=== PATIENT | male | born 1975 | race Caucasian/White ===

== ENCOUNTER 2019-05-27 11:50 | Inpatient (IN) | payer SELFPAY | END 2019-06-01 12:39 | disposition home or self-care (01) | DRG 897 | PROVIDERS: Emergency Provider Family Medicine | DX: F10.229 Alcohol dependence with intoxication, unspecified (principal); R45.851 Suicidal ideations; F15.24 Other stimulant dependence with stimulant-induced mood disorder; F10.239 Alcohol dependence with withdrawal, unspecified; F17.210 Nicotine dependence, cigarettes, uncomplicated; Z28.21 Immunization not carried out because of patient refusal ==

== ENCOUNTER 2019-06-04 13:02 | Emergency (ER) | payer SELFPAY ==
[2019-06-04 12:19] VITALS: BP 122/85; PULSE 112; RESP 18; TEMP 36.6; O2SAT 95; BMI 23.1
[2019-06-04 12:25] VITALS: O2SAT 95
--- NOTE | 2019-06-04 12:27 | ED_ITS ---
Entered by Padmini Delarosa, acting as scribe for HPI - Allergic Reaction General: Chief complaint: Allergic Reaction Stated complaint: ALLERGIC REACTION Time Seen by Provider: 06/04/19 12:27 Source: patient History of Present Illness: HPI narrative: 43 yo Male presents to ED with complaint of allergic reaction. Pt states that his was researching his new medications, possible drug interactions and he got panicky. Pt states that he has been on these new medications since he [facility] to [facility] . Pt states that he has had some shaking and increased agitation. Pt states that he feels back to normal now. Pt states that he normally has some redness on his face. Pt states that he is feeling normal and he just had anxiety. MD complaint: other (Anxiety) Onset (ago): hour(s) Exposure: medication Associated symptoms: Reports no associated symptoms Severity: mild Review of Systems General: Reports: 10 or more systems reviewed and unremarkable except in HPI and below Psych: Reports: anxiety and panic attacks PFSH ED PFSH: Statuses (acute, chronic, etc) shown below reflect problem list status as previously entered and may not be historically accurate Social History Smoking and tobacco status: current every day smoker Physical Exam Const: COMMON NORMALS: no apparent distress, average body habitus, oriented x3, no limitations, healthy appearing, alert and well nourished HENMT: COMMON NORMALS: normocephalic HEAD & SCALP: normocephalic Eye: COMMON NORMALS: PERRL, EOMs intact bilaterally and conjunctivae normal CONJUNCTIVA: Yes conjunctivae normal PUPIL: Yes PERRL Neck/C-Spine: COMMON NORMALS: full ROM, no lymphadenopathy, supple, no meningeal signs and no JVD Chest: COMMONS NORMALS: inspection of chest normal, palpation of chest normal, inspection of breasts normal and palpation of breasts normal Resp: COMMON NORMALS: normal respiratory effort, no retractions, no use of accessory muscles and clear to auscultation bilaterally AUSCULTATION: clear to auscultation bilaterally Cardio: COMMON NORMALS: no JVD, regular rate and regular rhythm RATE: regular rate RHYTHM: regular rhythm GI: COMMON NORMALS: normal to inspection, nondistended, normoactive bowel sounds : COMMON NORMALS: Yes no CVA tenderness BLADDER/KIDNEY EXAM: Yes no CVA tenderness Back/Pelvis: COMMON NORMALS: no CVA tenderness Extremity: COMMON NORMALS: normal to inspection and full ROM Neuro: COMMON NORMALS: oriented x3 SENSORIUM/ORIENTATION: Yes alert MENINGEAL SIGNS: Yes no meningeal signs Psych: COMMON NORMALS: mental status grossly normal, thought process normal, cooperative, affect normal, speech normal and activity/motor behavior normal SPEECH: Yes normal speech THOUGHT PROCESS: normal thought process Course Vital Signs: Vital signs: Vital Signs Temperature 97.9 F 06/04/19 12:19 Pulse Rate 100 06/04/19 13:15 Respiratory Rate 15 06/04/19 13:15 Blood Pressure 126/79 06/04/19 13:15 Pulse Oximetry 93 06/04/19 13:15 MDM - Allergic Reaction MDM Narrative: Medical decision making narrative: I discussed the differential diagnosis with the patient. The patient reports he feels back to normal now. Patient and appears very comfortable of reviewed his vital signs he is a little tachycardic but he reportedly not uncommonly is. The patient and I discussed continued monitoring and labs and other work-up versus just home treatment I think he probably had an anxiety attack. Patient began to worry about certain side effects of his medications but he has been on the medications now going into the second week without any problems prior to today. He does report feeling significantly better since he started the medications. I have given him reassurance but we also discussed return precautions. Follow-up with behavioral health and primary care is emphasized. Discharge Plan Discharge Patient Disposition: Home, Self-Care Clinical Impression: Anxiety attack Condition: Stable Discharge Diet: Usual diet Discharge Activity: Resume usual activity Activity Restrictions/Additional Instructions: 1. Follow-up with primary care and behavioral health. Return if symptoms worsen or new or different worrisome symptoms develop. Coding Level of Care Code ED Director Of Purchasing for Chg Fwd Exam Problem Focused The documentation recorded by the [place] frankel Carmen, accurately reflects the service I personally performed and the decisions made by me, Lewis Garrett DO
[2019-06-04 12:48] VITALS: BP 126/79; PULSE 104; RESP 15; O2SAT 94
[2019-06-04 13:15] VITALS: BP 126/79; PULSE 100; RESP 15; O2SAT 93
[2019-06-04 13:30] VITALS: BP 121/71; PULSE 98; RESP 14; O2SAT 94
--- NOTE | 2019-06-05 10:38 | DCPLANNER ---
security and compliance project manager had message that patient is to follow up with [facility]. security and compliance project manager called [facility], spoke with Luci, was told that patient has not been seen at the clinic. security and compliance project manager called patient to inform patient that he would need to complete the walk in assessment for services at [facility]. security and compliance project manager unable to speak with patient at this time, a voicemail was left for patient to return director case phone call.
== END 2019-06-04 13:34 | disposition home or self-care (01) ==
LOC: ER 13:37
PROVIDERS: Emergency Provider Family Medicine
DX: F41.9 Anxiety disorder, unspecified (principal); F17.210 Nicotine dependence, cigarettes, uncomplicated
CPT/HCPCS: 99282

== ENCOUNTER 2019-06-17 03:20 | Inpatient (IN) | payer SELFPAY ==
--- NOTE | 2019-06-17 03:22 | ED_ITS ---
Entered by Pratibha Mcgowan, acting as scribe for Fransisco Berry MD HPI - Alcohol General: Chief Complaint: Psychiatric Symptoms Stated Complaint: ETOH Time Seen by Provider: 06/17/19 03:24 Source: patient and EMS Mode of arrival: EMS Limitations: no limitations History of Present Illness: HPI narrative: 43 y/o male presents to the ED for intoxication. Pt became aggressive and combative with [place] [employer]. Pt is upset because his left him several days ago and he does not know where she is. Pt states he does not know what to do without her . Pt made SI/HI comments to police. Pt denied SI/HI upon exam. 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 Chronic alcohol use: Yes Previous visits for alcohol intoxication: Yes Associated symptoms: Deny abdominal pain, nausea or vomiting Treatments prior to arrival: none Review of Systems Const: Denies: fever or chills Eyes: Denies: change in vision ENMT: Denies: throat pain or mouth pain Card: Denies: chest pain Resp: Denies: shortness of breath GI: Denies: abdominal pain, nausea, vomiting or diarrhea Musc: Denies: back pain or joint pain Skin/Breast: Denies: rash Neuro: Denies: headache or behavioral changes Endo: Denies: excessive urination Byron/Lymph: Denies: easy bruising All/Imm: Denies: hives PFSH ED PFSH: Statuses (acute, chronic, etc) shown below reflect problem list status as previously entered and may not be historically accurate Social History Smoking and tobacco status: unknown if ever smoked Physical Exam Const: COMMON NORMALS: no apparent distress, oriented x3 and healthy appearing GENERAL APPEARANCE: combative and disheveled HENMT: COMMON NORMALS: normocephalic and external nose normal HEAD & SCALP: normocephalic NOSE: external nose normal Eye: COMMON NORMALS: PERRL PUPIL: Yes PERRL Neck/C-Spine: COMMON NORMALS: full ROM and no lymphadenopathy Chest: COMMONS NORMALS: inspection of chest normal Resp: COMMON NORMALS: normal respiratory effort, no use of accessory muscles and clear to auscultation bilaterally AUSCULTATION: clear to auscultation bilaterally Cardio: COMMON NORMALS: regular rate and regular rhythm RATE: regular rate RHYTHM: regular rhythm GI: COMMON NORMALS: normal to inspection, nondistended, normoactive bowel sounds, soft to palpation, non-tender and no masses PALPATION: Yes soft Back/Pelvis: THORACIC SPINE/UPPER BACK: Yes normal to inspection Extremity: COMMON NORMALS: normal to inspection, full ROM and normal capillary refill Neuro: COMMON NORMALS: oriented x3 Psych: APPEARANCE: Yes unkempt and Yes disheveled ATTITUDE: Yes agitated and Yes aggressive MOOD & AFFECT: Yes irritable Skin: COMMON NORMALS: no rashes or lesions noted GENERAL SKIN EXAM: no rashes or lesions noted Course Vital Signs: Vital signs: Vital Signs Temperature 98.4 F 06/17/19 03:26 Pulse Rate 94 06/17/19 03:26 Respiratory Rate 18 06/17/19 03:26 Blood Pressure 155/101 06/17/19 03:26 Pulse Oximetry 95 06/17/19 03:26 MDM - Alcohol MDM Narrative: Medical decision making narrative: Patient presents here with depression along with alcohol intoxication. Patient states that he feels like he needs help for his depression. He is not homicidal or suicidal but voluntarily wants to be placed in the psych unit. I spoke to Dr. Em and will admit patient to the psychiatric unit. Lab Data: Labs: Lab Results 06/17/19 06/17/19 Range/Units 03:53 03:53 WBC 9.2 (4.0-10.0) 10^3/ uL RBC 4.59 (4.1-5.3) 10^6/u L Hgb 17.1 H (11.7-16.6) g/dL Hct 49.5 (42.0-52.0) % MCV 107.8 H (80-94) fL MCH 37.3 H (28.0-34.0) pg MCHC 34.5 (30.0-36.0) g/dL RDW 12.0 L (12.1-15.1) % Plt Count 349 (130-400) 10^3/c mm MPV 8.9 (7.4-10.4) fL Neut % (Auto) 63.7 % Lymph % (Auto) 28.2 % Newton % (Auto) 6.9 % Eos % (Auto) 0.7 % Baso % (Auto) 0.4 % Neut # (Auto) 5.8 (1.8-7.7) 10^3/u L Lymph # (Auto) 2.6 (0.8-4.8) 10^3/u L Newton # (Auto) 0.6 (0.2-0.9) 10^3/u L Eos # (Auto) 0.1 (0.0-0.8) 10^3/u L Baso # (Auto) 0.0 (0.0-0.1) 10^3/u L Nucleated RBC % (a uto) 0 % Nucleated RBCs # 0.0 /100WBC Sodium 140 (136-145) mmol/L Potassium 4.1 (3.5-5.1) mmol/L Chloride 104 (98-107) mmol/L Carbon Dioxide 20 L (22-29) mmol/L Anion Gap 20.1 H (5-19) BUN 14 (6-20) mg/dL Creatinine 1.0 (0.7-1.2) mg/dL GFR Calculation 81.9 L (90-130) mL/min Glucose 98 (74-109) mg/dL Calcium 9.0 (8.6-10.0) mg/Dl Total Bilirubin 0.2 (0.15-1.2) mg/dL AST 35 (0-40) U/L ALT 41 (0-41) U/L Alkaline Phosphata se 122 (40-130) IU/L Total Protein 8.0 (6.6-8.7) g/dL Albumin 4.8 (3.5-5.2) g/dL Globulin 3.2 (1.3-4.6) g/dL Salicylates < 0.3 L (3-10) mg/dL Acetaminophen < 5.0 L (10-30) ug/mL Ethyl Alcohol 205 H (0-10) mg/dL Discharge Plan Discharge Admit Provider: Shola Em Coding Level of Care Code ED Retail Salesman for Chg Fwd Exam Problem Focused The documentation recorded by the Juan M frankel Ashley, accurately reflects the service I personally performed and the decisions made by , Fransisco Berry MD Jun 17, 2019 03:20
[2019-06-17 03:26] VITALS: BP 155/101; PULSE 94; RESP 18; TEMP 36.9; O2SAT 95; BMI 26.4
[2019-06-17] MEDS: LORazepam 1 mg Tablet PO (03:55)
[2019-06-17 04:19] LABS: Basophils % 0.4 %; Eosinophils # 0.1 10^3/uL (0.0-0.8); Eosinophils % 0.7 %; Hematocrit 49.5 % (42.0-52.0); Hemoglobin 17.1 g/dL (11.7-16.6); Lymphocytes # 2.6 10^3/uL (0.8-4.8); Lymphocytes % 28.2 %; Mean Corpuscular HGB Conc 34.5 g/dL (30.0-36.0); Mean Corpuscular Hemoglobin 37.3 pg (28.0-34.0); Mean Corpuscular Volume 107.8 fL (80-94); Mean Platelet Volume 8.9 fL (7.4-10.4); Monocytes # 0.6 10^3/uL (0.2-0.9); Monocytes % 6.9 %; Neutrophils # 5.8 10^3/uL (1.8-7.7); Neutrophils % 63.7 %; Nucleated Red Blood Cells % 0 %; Platelet Count 349 10^3/cmm (130-400); Red Blood Count 4.59 10^6/uL (4.1-5.3); White Blood Count 9.2 10^3/uL (4.0-10.0)
[2019-06-17 04:28] LABS: Alanine Aminotransferase 41 U/L (0-41); Albumin Level 4.8 g/dL (3.5-5.2); Alcohol Level 205 mg/dL (0-10); Alkaline Phosphatase 122 IU/L (40-130); Anion Gap 20.1 (5-19); Aspartate Amino Transferase 35 U/L (0-40); Blood Urea Nitrogen 14 mg/dL (6-20); Carbon Dioxide 20 mmol/L (22-29); Chloride 104 mmol/L (98-107); Globulin 3.2 g/dL (1.3-4.6); Glomerular Filtration Rate 81.9 mL/min (90-130); Glucose 98 mg/dL (74-109); Potassium 4.1 mmol/L (3.5-5.1); Sodium 140 mmol/L (136-145); Total Bilirubin 0.2 mg/dL (0.15-1.2)
[2019-06-17 04:29] LABS: Acetaminophen < 5.0 ug/mL (10-30); Salicylate < 0.3 mg/dL (3-10)
[2019-06-17] MEDS: LORazepam 1 mg Tablet 2 MG PO (05:21)
[2019-06-17 05:25] VITALS: BP 131/75; PULSE 89; RESP 17; O2SAT 95
[2019-06-17 06:00] VITALS: BP 125/79; PULSE 93; RESP 22; TEMP 37; O2SAT 96
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
[2019-06-17 14:00] VITALS: BP 132/83; PULSE 87; RESP 18; TEMP 36.8; O2SAT 98
[2019-06-17] MEDS: hyDROXYzine 25 mg Capsule 50 MG PO (17:43)
--- NOTE | 2019-06-17 17:44 | PC.NURSE ---
Addendum entered by Lizz Mancini LPN 06/17/19 19:03: prn med effective no further c/o anxiety Original Note: PRN VISTARIL 50 MG GIVEN PO PER PT C/O GENERALIZED ANXIETY. WILL CONT TO MONITOR. PT SPECIFICALLY ASKING FOR ATIVAN
[2019-06-17 19:58] VITALS: BP 135/89; PULSE 89; RESP 20; TEMP 36.8; O2SAT 97
[2019-06-17] MEDS: trazodone 50 mg Tablet PO (20:58)
[2019-06-18] MEDS: hyDROXYzine 25 mg Capsule 50 MG PO (02:56)
[2019-06-18 06:00] VITALS: BP 132/91; PULSE 79; RESP 18; TEMP 36.6; O2SAT 97
[2019-06-18 07:54] LABS: Amphetamines Screen Urine Negative (Negative); Barbiturates Screen Urine Negative (Negative); Benzodiazepines Screen Urine Negative (Negative); Cocaine Screen Urine Negative (Negative); Opiate Screen Urine Negative (Negative); PCP Screen Urine Negative (Negative); THC Screen Urine Negative (Negative)
[2019-06-18] MEDS: multivitamin therapeutic Tablet 1 TAB PO (09:56)
[2019-06-18] MEDS: folic acid 1 mg Tablet PO (09:56)
[2019-06-18] MEDS: thiamine 100 mg Tablet PO (09:56)
[2019-06-18 12:48] VITALS: BP 118/83; PULSE 92; RESP 20; TEMP 36.6; O2SAT 98
[2019-06-18 12:50] VITALS: BP 118/83; PULSE 92; RESP 20; TEMP 36.6; O2SAT 98
[2019-06-18 14:00] VITALS: BP 118/83; PULSE 82; RESP 20; TEMP 36.6; O2SAT 98
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
[2019-06-18] MEDS: citalopram 20 mg Tablet PO (17:48)
[2019-06-18] MEDS: nicotine 21 mg Patch 1 PATCH TRANSDERMA (18:30)
[2019-06-18] MEDS: LORazepam 2 mg Tablet PO (18:40)
--- NOTE | 2019-06-18 18:41 | PC.NURSE ---
PT NOTE: PRN ATIVAN 2 MG GIVEN PER CIWA PROTOCOL
[2019-06-18 20:04] VITALS: BP 138/94; PULSE 83; RESP 18; TEMP 36.6; O2SAT 99
[2019-06-18] MEDS: trazodone 50 mg Tablet PO (21:18)
[2019-06-19 06:00] VITALS: BP 139/88; PULSE 98; RESP 20; TEMP 36.7; O2SAT 98
[2019-06-19] MEDS: thiamine 100 mg Tablet PO (09:14)
[2019-06-19] MEDS: folic acid 1 mg Tablet PO (09:14)
[2019-06-19] MEDS: multivitamin therapeutic Tablet 1 TAB PO (09:14)
[2019-06-19] MEDS: citalopram 20 mg Tablet PO (09:14)
[2019-06-19 13:40] VITALS: BP 119/73; PULSE 89; RESP 16; TEMP 36.9; O2SAT 91
--- NOTE | 2019-06-19 14:31 | PM.NPN ---
Subjective NPU Subjective: Interval history: Patient complains that he usually takes his Celexa at bedtime because it zombies me out during the day. He also reports that he usually takes trazodone 100 mg 4 times a day. He then goes on to complain that he has the shakes and anxiety and wants something during the day for the shakes and anxiety. When he is told that part of the alcohol withdrawal is on a protocol for that. He nods his head and asked me if he can have something for his anxiety. We discussed his history of being sober at the same time as his . That occurred a year ago when she went to rehabilitation at [place] while he was incarcerated for a month. He says that he has been sober for several years and does not doubt his willpower to become sober and remain sober. However he says the barrier to such is the fact that he has not been able to get disability and has not been able to retain employment. Mental Status Exam MSE Comments: This is a well-nourished, well-developed white male Who is still disheveled and malodorous. No abnormal movements except for psychomotor retardation. Cooperative with exam . Speech was Normal rate and volume. Mood described as depressed, affect congruent But with improved affective range. Thought process organized. Thought content: Patient Deniedsuicidal ideation denied homicidal ideation, there were no delusions reported or noted, he denied any auditory or visual hallucinations. Attention and concentration appear intact and memory was mostly reliable but none were formally tested. He is alert and oriented x3. Insight and judgment are limited/impaired. Cognition: Level of Consciousness: Awake, Alert, Appropriate and Follows Commands Patient Cognition Impaired: No Ability to Follow Directions: Excellent Patient Orientation (long list): Person, Place, Time, Name, Age and Birthday Comprehension Ability: No Impairment Hallucination Type: Auditory Delusion Description: Not Present Thought Process: Appropriate Affect: Affect Description: Calm Depressive Symptoms: Difficulty Sleeping, Increased Anxiety and Unhappiness Behavior: Patient Behavior: Cooperative Speech Pattern: Clear Vitals/I&O/Wt Last Vital Signs Temp 98.5 F 06/19/19 13:40 Pulse 89 06/19/19 13:40 Resp 16 06/19/19 13:40 BP 119/73 06/19/19 13:40 Pulse Ox 91 06/19/19 13:40 Data NPU : 06/17/19 03:53 06/17/19 03:53 A&P Assessment and plan (1) Alcohol use disorder: Status: Acute (2) Adjustment disorder with mixed disturbance of emotions and conduct: This is a 43-year-old white male with a few recent hospitalizations with significant psychosocial challenges including the likely divorce from his who presents with recent intoxication and endorsing lethality. 1. Continue current medication. 2. Continue on the [facility] protocol for safe withdrawal. Hospital day #3: Celexa was increased to 40 mg and moved to a bedtime dose. Imipramine was replaced with trazodone 200 mg at bedtime. No daytime dosing was provided. Patient was strongly advised to notify staff if he thought he was in alcohol withdrawal and needed medication therapy.He continues to refuse referral for rehabilitation. 3. Encourage individual group and milieu therapy. 4. Continue to 15-minute checks for safety. 5. Encourage discharged to a sober living facility at the highest level of care to which he is willing to commit. Status: Acute Code(s): F43.25 - Adjustment disorder with mixed disturbance of emotions and conduct (3) Depressive disorder, not elsewhere classified: Status: Acute Code(s): F32.9 - Major depressive disorder, single episode, unspecified Involuntary Hold Information 96 Hour Hold: 96 Hour Involuntary Admission: No Attestations NPU Medical Necessity Statement*: Patient will remain in the hospital another 3 nights for treatment of alcohol withdrawal. Coding Level of Care Code Acute Product Manager Financial Services for Camila Alvares Diagnoses Alcohol use disorder Adjustment disorder with mixed disturbance of emotions and conduct F43.25 Depressive disorder, not elsewhere classified F32.9
[2019-06-19 20:08] VITALS: BP 128/73; PULSE 91; RESP 21; TEMP 36.7; O2SAT 97
[2019-06-19] MEDS: trazodone 100 mg Tablet PO (20:31)
[2019-06-19] MEDS: citalopram 20 mg Tablet 40 MG PO (20:31)
[2019-06-19 22:00] VITALS: BP 128/73; PULSE 91; RESP 21; TEMP 36.7; O2SAT 97
[2019-06-20 06:00] VITALS: BP 121/80; PULSE 77; RESP 16; TEMP 36.6; O2SAT 97
[2019-06-20] MEDS: multivitamin therapeutic Tablet 1 TAB PO (08:24)
[2019-06-20] MEDS: folic acid 1 mg Tablet PO (08:24)
[2019-06-20] MEDS: thiamine 100 mg Tablet PO (08:24)
--- NOTE | 2019-06-20 11:28 | P.PN_ITS ---
Subjective NPU Subjective: Interval history: Patient is in bed asleep. He has made no complaints. Unable to interview. Mental Status Exam MSE Comments: MSE from yesterday: This is a well-nourished, well-developed white male Who is still disheveled and malodorous. No abnormal movements except for psychomotor retardation. Cooperative with exam . Speech was Normal rate and volume. Mood described as depressed, affect congruent But with improved affective range. Thought process organized. Thought content: Patient Deniedsuicidal ideation denied homicidal ideation, there were no delusions rep orted or noted, he denied any auditory or visual hallucinations. Attention and concentration appear intact and memory was mostly reliable but none were formally tested. He is alert and oriented x3. Insight and judgment are limited/impaired. Today he is in bed asleep. His breathing is unlabored and he appears to be in no apparent distress. Cognition: Level of Consciousness: Awake, Alert, Appropriate and Follows Commands Patient Cognition Impaired: No Ability to Follow Directions: Excellent Patient Orientation (long list): Person, Place, Time, Name, Age and Birthday Comprehension Ability: No Impairment Hallucination Type: None Delusion Description: Not Present Thought Process: Appropriate Affect: Affect Description: [place] Depressive Symptoms: Difficulty Sleeping, Increased Anxiety and Unhappiness Behavior: Patient Behavior: Appropriate Speech Pattern: Clear Vitals/I&O/Wt Last Vital Signs Temp 98 F 06/20/19 06:00 Pulse 77 06/20/19 06:00 Resp 16 06/20/19 06:00 BP 121/80 06/20/19 06:00 Pulse Ox 97 06/20/19 06:00 Data NPU : 06/17/19 03:53 06/17/19 03:53 A&P Assessment and plan (1) Alcohol use disorder: Status: Acute (2) Adjustment disorder with mixed disturbance of emotions and conduct: This is a 43-year-old white male with a few recent hospitalizations with significant psychosocial challenges including the likely divorce from his who presents with recent intoxication and endorsing lethality. 1. Continue current medication. 2. Continue on the [facility] protocol for safe withdrawal. Hospital day #3: Celexa was increased to 40 mg and moved to a bedtime dose. Imipramine was replaced with trazodone 200 mg at bedtime. No daytime dosing was provided. Patient was strongly advised to notify staff if he thought he was in alcohol withdrawal and needed medication therapy.He continues to refuse referral for rehabilitation. HD#4: no changes at this time. Will defer outpatient referrals until saturday when rehabnilitation offices are open 3. Encourage individual group and milieu therapy. 4. Continue to 15-minute checks for safety. 5. Encourage discharged to a sober living facility at the highest level of care to which he is willing to commit. Status: Acute Code(s): F43.25 - Adjustment disorder with mixed disturbance of emotions and conduct (3) Depressive disorder, not elsewhere classified: Status: Acute Code(s): F32.9 - Major depressive disorder, single episode, unspecified Involuntary Hold Information 2 96 Hour Hold: 96 Hour Involuntary Admission: No Attestations NPU Medical Necessity Statement*: Pt will remain inhospital 2 more nights to copmplete alcohol detox and allow for rehab referral Coding Level of Care Code Acute Solar Energy Installation Manager for Camila Alvares Diagnoses Alcohol use disorder Adjustment disorder with mixed disturbance of emotions and conduct F43.25 Depressive disorder, not elsewhere classified F32.9
[2019-06-20] MEDS: nicotine 2 mg Gum BUCCAL (13:40)
[2019-06-20 13:59] VITALS: BP 121/80; PULSE 77; RESP 16; TEMP 36.6; O2SAT 97
[2019-06-20 14:39] VITALS: BP 125/83; PULSE 107; RESP 19; TEMP 36.8; O2SAT 95
[2019-06-20] MEDS: nicotine 21 mg Patch 1 PATCH TRANSDERMA (16:18)
[2019-06-20 20:39] VITALS: BP 147/88; PULSE 87; RESP 20; TEMP 36.6; O2SAT 97
[2019-06-20] MEDS: trazodone 100 mg Tablet PO (21:39)
[2019-06-20] MEDS: citalopram 20 mg Tablet 40 MG PO (21:39)
[2019-06-21 06:00] VITALS: BP 128/85; PULSE 78; RESP 20; TEMP 36.4; O2SAT 99
[2019-06-21] MEDS: multivitamin therapeutic Tablet 1 TAB PO (08:38)
[2019-06-21] MEDS: folic acid 1 mg Tablet PO (08:38)
[2019-06-21] MEDS: thiamine 100 mg Tablet PO (08:38)
[2019-06-21] MEDS: trazodone 50 mg Tablet PO ×3 (09:46→20:34)
--- NOTE | 2019-06-21 11:38 | P.PN_ITS ---
Subjective NPU Subjective: Interval history: Patient Encountered spontaneously alert and interpersonally engaged with peers and staff for the first time. He reports that he is having some daytime anxiety and would benefit from when necessary trazodone during the day. Otherwise he is doing much better and feeling better. He is preparing his plan for discharge. Mental Status Exam MSE Comments: MSE from yesterday: This is a well-nourished, well-developed white male Who is still disheveled and malodorous. No abnormal movements except for psychomotor retardation. Cooperative with exam . Speech was Normal rate and volume. Mood described as euthymic, affect congruent with good affective range. Thought process organized. Thought content: Patient Deniedsuicidal ideation denied homicidal ideation, there were no delusions reported or noted, he denied any auditory or visual hallucinations. Attention and concentration appear intact and memory was mostly reliable but none were formally tested. He is alert and oriented x3. Insight and judgment are limited/impaired. Today he is in bed asleep. His breathing is unlabored and he appears to be in no apparent distress. Cognition: Level of Consciousness: Awake, Alert, Appropriate and Follows Commands Patient Cognition Impaired: No Ability to Follow Directions: Excellent Patient Orientation (long list): Person, Place, Time, Name, Age and Birthday Comprehension Ability: No Impairment Hallucination Type: None Delusion Description: Not Present Thought Process: Appropriate Affect: Affect Description: Appropriate and Calm Depressive Symptoms: Difficulty Sleeping, Increased Anxiety and Unhappiness Behavior: Patient Behavior: Appropriate Speech Pattern: Clear Vitals/I&O/Wt Last Vital Signs Temp 97.6 F 06/21/19 06:00 Pulse 78 06/21/19 06:00 Resp 20 H 06/21/19 06:00 BP 128/85 06/21/19 06:00 Pulse Ox 99 06/21/19 06:00 Weight last 48 hrs Weight 74.752 kg Data NPU : 06/17/19 03:53 06/17/19 03:53 A&P Assessment and plan (1) Alcohol use disorder: Status: Acute (2) Adjustment disorder with mixed disturbance of emotions and conduct: This is a 43-year-old white male with a few recent hospitalizations with significant psychosocial challenges including the likely divorce from his who presents with recent intoxication and endorsing lethality. 1. Continue current medication. 2. Continue on the [facility] protocol for safe withdrawal. Hospital day #3: Celexa was increased to 40 mg and moved to a bedtime dose. Imipramine was replaced with trazodone 200 mg at bedtime. No daytime dosing was provided. Patient was strongly advised to notify staff if he thought he was in alcohol withdrawal and needed medication therapy.He continues to refuse referral for rehabilitation. HD#4: no changes at this time. Will defer outpatient referrals until saturday when rehabilitation offices are open HD#5: Will initiate 3 times a day trazodone during the day. Strongly re commended his participation in groups. 3. Encourage individual group and milieu therapy. 4. Continue to 15-minute checks for safety. 5. Encourage discharged to a sober living facility at the highest level of care to which he is willing to commit. Status: Acute Code(s): F43.25 - Adjustment disorder with mixed disturbance of emotions and conduct (3) Depressive disorder, not elsewhere classified: Status: Acute Code(s): F32.9 - Major depressive disorder, single episode, unspecified Involuntary Hold Information 96 Hour Hold: 96 Hour Involuntary Admission: No Attestations NPU Medical Necessity Statement*: Patient to remain another 1-2 nights while his placement is established. Coding Level of Care Code Acute Automotive Professional for Camila Alvares Diagnoses Alcohol use disorder Adjustment disorder with mixed disturbance of emotions and conduct F43.25 Depressive disorder, not elsewhere classified F32.9
[2019-06-21] MEDS: nicotine 2 mg Gum BUCCAL ×2 (13:25→17:27)
[2019-06-21 14:00] VITALS: BP 136/81; PULSE 98; RESP 18; TEMP 36.8; O2SAT 97
[2019-06-21 20:00] VITALS: BP 142/95; PULSE 104; RESP 21; TEMP 36.5; O2SAT 96
[2019-06-21] MEDS: trazodone 100 mg Tablet PO (20:34)
[2019-06-21] MEDS: citalopram 20 mg Tablet 40 MG PO (20:34)
[2019-06-21 22:00] VITALS: BP 142/95; PULSE 104; RESP 21; TEMP 36.5; O2SAT 96
[2019-06-22 06:00] VITALS: BP 111/74; PULSE 87; RESP 20; TEMP 36.8; O2SAT 97
[2019-06-22] MEDS: trazodone 50 mg Tablet PO ×3 (09:32→21:06)
[2019-06-22] MEDS: thiamine 100 mg Tablet PO (09:32)
[2019-06-22] MEDS: multivitamin therapeutic Tablet 1 TAB PO (09:32)
[2019-06-22] MEDS: folic acid 1 mg Tablet PO (09:32)
[2019-06-22 14:00] VITALS: BP 108/71; PULSE 83; RESP 18; TEMP 36.6; O2SAT 95
--- NOTE | 2019-06-22 16:27 | P.PN_ITS ---
Subjective NPU Subjective: Interval history: Patient Encountered spontaneously alert and interpersonally engaged with peers and staff . He is preparing his plan for discharge. Mental Status Exam MSE Comments: MSE from yesterday: This is a well-nourished, well-developed white male Who is still disheveled and malodorous. No abnormal movements except for psychomotor retardation. Cooperative with exam . Speech was Normal rate and volume. Mood described as euthymic, affect congruent with good affective range. Thought process organized. Thought content: Patient Deniedsuicidal ideation denied homicidal ideation, there were no delusions reported or noted, he denied any auditory or visual hallucinations. Attention and concentration appear intact and memory was mostly reliable but none were formally tested. He is alert and oriented x3. Insight and judgment are limited/impaired. Today he is in bed asleep. His breathing is unlabored and he appears to be in no apparent distress. Cognition: Patient Appearance: Appropriate Level of Consciousness: Awake, Alert, Appropriate and Follows Commands Patient Cognition Impaired: No Ability to Follow Directions: Excellent Patient Orientation (long list): Person and Place Comprehension Ability: No Impairment Hallucination Type: None Delusion Description: Not Present Thought Process: Appropriate Affect: Affect Description: Calm Depressive Symptoms: Difficulty Sleeping, Increased Anxiety and Unhappiness Behavior: Patient Behavior: Cooperative Speech Pattern: Clear Vitals/I&O/Wt Last Vital Signs Temp 97.9 F 06/22/19 14:00 Pulse 83 06/22/19 14:00 Resp 18 06/22/19 14:00 BP 108/71 06/22/19 14:00 Pulse Ox 95 06/22/19 14:00 Weight last 48 hrs Weight 74.752 kg Data NPU : 06/17/19 03:53 06/17/19 03:53 A&P Assessment and plan (1) Alcohol use disorder: Status: Acute (2) Adjustment disorder with mixed disturbance of emotions and conduct: This is a 43-year-old white male with a few recent hospitalizations with significant psychosocial challenges including the likely divorce from his who presents with recent intoxication and endorsing lethality. 1. Continue current medication. 2. Continue on the [facility] protocol for safe withdrawal. Hospital day #3: Celexa was increased to 40 mg and moved to a bedtime dose. Imipramine was replaced with trazodone 200 mg at bedtime. No daytime dosing was provided. Patient was strongly advised to notify staff if he thought he was in alcohol withdrawal and needed medication therapy.He continues to refuse referral for rehabilitation. HD#4: no changes at this time. Will defer outpatient referrals until saturday when rehabilitation offices are open HD#5: Will initiate 3 times a day trazodone during the day. Strongly recommended his participation in groups. HD#6: discharge destination is uncertain and the fridge and cold temperature, will allow him to remain one more night and discharge in the morning. 3. Encourage individual group and milieu therapy. 4. Continue to 15-minute checks for safety. 5. Encourage discharged to a sober living facility at the highest level of care to which he is willing to commit. Status: Acute Code(s): F43.25 - Adjustment disorder with mixed disturbance of emotions and conduct (3) Depressive disorder, not elsewhere classified: Status: Acute Code(s): F32.9 - Major depressive disorder, single episode, unspecified Involuntary Hold Information 96 Hour Hold: 96 Hour Involuntary Admission: No Attestations NPU Medical Necessity Statement*: patient to remain in the hospital 1 more night to establish destination upon discharge and coordinate outpatient substance abuse treatment with his . Coding Level of Care Code Acute Clerical Aide Teacher for Camila Alvares Diagnoses Alcohol use disorder Adjustment disorder with mixed disturbance of emotions and conduct F43.25 Depressive disorder, not elsewhere classified F32.9
--- NOTE | 2019-06-22 16:29 | P.PN_ITS ---
Subjective NPU Subjective: Interval history: Patient Encountered spontaneously alert and interpersonally engaged with peers and staff . He is preparing his plan for discharge. Mental Status Exam MSE Comments: MSE from yesterday: This is a well-nourished, well-developed white male Who is still disheveled and malodorous. No abnormal movements except for psychomotor retardation. Cooperative with exam . Speech was Normal rate and volume. Mood described as euthymic, affect congruent with good affective range. Thought process organized. Thought content: Patient Deniedsuicidal ideation denied homicidal ideation, there were no delusions reported or noted, he denied any auditory or visual hallucinations. Attention and concentration appear intact and memory was mostly reliable but none were formally tested. He is alert and oriented x3. Insight and judgment are limited/impaired. Today he is in bed asleep. His breathing is unlabored and he appears to be in no apparent distress. Cognition: Patient Appearance: Appropriate Level of Consciousness: Awake, Alert, Appropriate and Follows Commands Patient Cognition Impaired: No Ability to Follow Directions: Excellent Patient Orientation (long list): Person and Place Comprehension Ability: No Impairment Hallucination Type: None Delusion Description: Not Present Thought Process: Appropriate Affect: Affect Description: Calm Depressive Symptoms: Difficulty Sleeping, Increased Anxiety and Unhappiness Behavior: Patient Behavior: Cooperative Speech Pattern: Clear Vitals/I&O/Wt Last Vital Signs Temp 97.9 F 06/22/19 14:00 Pulse 83 06/22/19 14:00 Resp 18 06/22/19 14:00 BP 108/71 06/22/19 14:00 Pulse Ox 95 06/22/19 14:00 Weight last 48 hrs Weight 74.752 kg Data NPU : 06/17/19 03:53 06/17/19 03:53 A&P Assessment and plan (1) Alcohol use disorder: Status: Acute (2) Adjustment disorder with mixed disturbance of emotions and conduct: This is a 43-year-old white male with a few recent hospitalizations with significant psychosocial challenges including the likely divorce from his who presents with recent intoxication and endorsing lethality. 1. Continue current medication. 2. Continue on the [facility] protocol for safe withdrawal. Hospital day #3: Celexa was increased to 40 mg and moved to a bedtime dose. Imipramine was replaced with trazodone 200 mg at bedtime. No daytime dosing was provided. Patient was strongly advised to notify staff if he thought he was in alcohol withdrawal and needed medication therapy.He continues to refuse referral for rehabilitation. HD#4: no changes at this time. Will defer outpatient referrals until saturday when rehabilitation offices are open HD#5: Will initiate 3 times a day trazodone during the day. Strongly recommended his participation in groups. HD#6: discharge destination is uncertain and the fridge and cold temperature, will allow him to remain one more night and discharge in the morning. 3. Encourage individual group and milieu therapy. 4. Continue to 15-minute checks for safety. 5. Encourage discharged to a sober living facility at the highest level of care to which he is willing to commit. Status: Acute Code(s): F43.25 - Adjustment disorder with mixed disturbance of emotions and conduct (3) Depressive disorder, not elsewhere classified: Status: Acute Code(s): F32.9 - Major depressive disorder, single episode, unspecified Involuntary Hold Information 96 Hour Hold: 96 Hour Involuntary Admission: No Attestations NPU Medical Necessity Statement*: patient will remain in the hospital 1 more night and coordinate outpatient treatment with his tomorrow. Coding Level of Care Code Acute Arch Cushion Press Operator for Camila Alvares Diagnoses Alcohol use disorder Adjustment disorder with mixed disturbance of emotions and conduct F43.25 Depressive disorder, not elsewhere classified F32.9
[2019-06-22 20:40] VITALS: BP 121/77; PULSE 78; RESP 15; TEMP 36.6; O2SAT 97
[2019-06-22] MEDS: citalopram 20 mg Tablet 40 MG PO (21:06)
[2019-06-22] MEDS: trazodone 100 mg Tablet PO (21:07)
[2019-06-22] MEDS: nicotine 2 mg Gum BUCCAL (22:11)
[2019-06-23 06:00] VITALS: BP 111/73; PULSE 68; RESP 17; TEMP 36.6; O2SAT 97
[2019-06-23] MEDS: nicotine 2 mg Gum BUCCAL ×3 (06:36→12:15)
--- NOTE | 2019-06-23 08:18 | PM.NDC ---
Diagnoses at Discharge Discharge Diagnosis (1) Alcohol use disorder: Status: Acute (2) Adjustment disorder with mixed disturbance of emotions and conduct: Status: Acute (3) Depressive disorder, not elsewhere classified: Status: Acute Reason for Visit Reason for Visit: Reason For Visit: ETOH Hospital Course Discharge Summary Chief complaint: I just started binge drinking again. History of present illness: Israel Gordon Is a 43-year-old alcoholic well known to this physician and this program. He states that he once again began binge drinking on whiskey. Following the holidays, he drank hard for a few days and then was able to quit. Then again approximately June 11 started drinking again and has been drinking since. His Admission blood alcohol level was 205. 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 His interview is difficult as he has been through this process some times that he has standard answers which are reflected in his 2 most recent admission evaluations. He generally denies symptoms of depression of his body language and manner with indicate otherwise. He continues to state that Celexa has been beneficial to him in the past though it has not assisted in keeping him sober. He admits that sobriety is the dominating force his mental health care but continues to refused participation in any type of formal rehabilitation program or outpatient support of 12 step program. Contrary to the statement in the emergency room, he says that he is not currently having any type of suicidal or homicidal ideation. Historically he has only made those a while inebriated. According to the emergency room note:HPI narrative: 43 y/o male presents to the ED for intoxication. Pt became aggressive and combative with [place] [employer]. Pt is upset because his left him several days ago and he does not know where she is. Pt states he does not know what to do without her . Pt made SI/HI comments to police. Pt denied SI/HI upon exam. Assessment and plan (1) Alcohol use disorder: Status: Acute (2) Adjustment disorder with mixed disturbance of emotions and conduct: This is a 43-year-old white male with a few recent hospitalizations with significant psychosocial challenges including the likely divorce from his who presents with recent intoxication and endorsing lethality. 1. Continue current medication. 2. Continue on the [facility] protocol for safe withdrawal. Hospital day #3: Celexa was increased to 40 mg and moved to a bedtime dose. Imipramine was replaced with trazodone 200 mg at bedtime. No daytime dosing was provided. Patient was strongly advised to notify staff if he thought he was in alcohol withdrawal and needed medication therapy.He continues to refuse referral for rehabilitation. HD#4: no changes at this time. Will defer outpatient referrals until saturday when rehabilitation offices are open HD#5: Will initiate 3 times a day trazodone during the day. Strongly recommended his participation in groups. HD#6: discharge destination is uncertain and the fridge and cold temperature, will allow him to remain one more night and discharge in the morning. Involuntary Hold Information 96 Hour Hold: 96 Hour Involuntary Admission: No Mental Status Exam MSE Comments: Discharge Mental Status Exam: Appearance: hygiene is good; no gross neurological deficits., gait is unremarkable; AIMS=0 Speech: Speech is of normal rate and rhythm and easily understood. Thought processes: Thought processes are abstract. Judgment is adequate for safety. Associations: intact Psychotic processes: There is no indication of guarding or paranoia. There is no attention to the internal stimuli. Auditory and visual hallucinations are denied. Judgment: Insight is fair. Problem solving skills are adequate for safety. Orientation: The patient is oriented to person, place time and situation. Memory: no deficits noted in immediate, intermediate, or remote spheres. Attention: The patient is alert and interpersonally engaged. Language: Verbalizations are coherent. Fund of knowledge: Fund of knowledge is adequate. Affect/Mood: Affect is consistent with a euthymic mood. denied suicidal ideation Affective range is appropriate. Psychosis: perception unimpaired except through cognitive distortion; reality testing intact. Discharge Data Vitals: Last Vital Signs Temp 97.9 F 06/23/19 06:00 Pulse 68 06/23/19 06:00 Resp 17 06/23/19 06:00 BP 111/73 06/23/19 06:00 Pulse Ox 97 06/23/19 06:00 Discharge Plan Discharge Patient Disposition: Home, Self-Care Condition: Stable Prescriptions: New thiamine mononitrate (vit B1) [Vitamin B-1 (mononitrate)] 100 mg Tablet 100 mg PO DAILY Qty: 30 RF: 0 folic acid 1 mg Tablet 1 mg PO DAILY Qty: 30 RF: 0 citalopram 20 mg Tablet 40 mg PO BEDTIME Qty: 30 RF: 1 trazodone 100 mg Tablet 100 mg PO BEDTIME Qty: 30 RF: 0 trazodone 50 mg Tablet 50 mg PO TID Qty: 90 RF: 0 Discharge Orders: Discharge Order (Routine); Ordered 06/23/19 Ordered By: Bryan Ramon Referrals: [facility] [Outside] Discharge Diet: Regular Discharge Activity: Increase activity as tolerated Activity Restrictions/Additional Instructions: Follow-up with an outpatient mental health provider within 3-5 days if possible. [facility] [address] [facility] [facility] [address] [place] [address] walk-in hours 7:30-2:30 go some time within the walk-in hours and request initial intake to get outpatient services started. Call Sharla Griffin daily about getting into residential treatment. call [phone] [facility] or [address] [address] For any financial assistance questions you might have, call Patient Accounts at [phone] Discharge Attestations NPU Time Spent in Discharge Care*: greater than 30 min Coding Level of Care Code Acute Tracer Bullet Charging Machine Operator for Chg Fwd Diagnoses Alcohol use disorder Adjustment disorder with mixed disturbance of emotions and conduct F43.25 Depressive disorder, not elsewhere classified F32.9
--- NOTE | 2019-06-23 08:19 | PM.NDC ---
Diagnoses at Discharge Discharge Diagnosis (1) Alcohol use disorder: Status: Acute (2) Adjustment disorder with mixed disturbance of emotions and conduct: Status: Acute (3) Depressive disorder, not elsewhere classified: Status: Acute Reason for Visit Reason for Visit: Reason For Visit: ETOH Hospital Course Discharge Summary Assessment and plan (1) Alcohol use disorder: Status: Acute (2) Adjustment disorder with mixed disturbance of emotions and conduct: This is a 43-year-old white male with a few recent hospitalizations with significant psychosocial challenges including the likely divorce from his who presents with recent intoxication and endorsing lethality. 1. Continue current medication. 2. Continue on the [facility] protocol for safe withdrawal. Hospital day #3: Celexa was increased to 40 mg and moved to a bedtime dose. Imipramine was replaced with trazodone 200 mg at bedtime. No daytime dosing was provided. Patient was strongly advised to notify staff if he thought he was in alcohol withdrawal and needed medication therapy.He continues to refuse referral for rehabilitation. HD#4: no changes at this time. Will defer outpatient referrals until saturday when rehabilitation offices are open HD#5: Will initiate 3 times a day trazodone during the day. Strongly recommended his participation in groups. HD#6: discharge destination is uncertain and the fridge and cold temperature, will allow him to remain one more night and discharge in the morning. Involuntary Hold Information 96 Hour Hold: 96 Hour Involuntary Admission: No Discharge Data Vitals: Last Vital Signs Temp 97.9 F 06/23/19 06:00 Pulse 68 06/23/19 06:00 Resp 17 06/23/19 06:00 BP 111/73 06/23/19 06:00 Pulse Ox 97 06/23/19 06:00 Discharge Plan Discharge Patient Disposition: Home, Self-Care Condition: Stable Prescriptions: New thiamine mononitrate (vit B1) [Vitamin B-1 (mononitrate)] 100 mg Tablet 100 mg PO DAILY Qty: 30 RF: 0 folic acid 1 mg Tablet 1 mg PO DAILY Qty: 30 RF: 0 citalopram 20 mg Tablet 40 mg PO BEDTIME Qty: 30 RF: 1 trazodone 100 mg Tablet 100 mg PO BEDTIME Qty: 30 RF: 0 trazodone 50 mg Tablet 50 mg PO TID Qty: 90 RF: 0 Discharge Orders: Discharge Order (Routine); Ordered 06/23/19 Ordered By: Bryan Ramon Referrals: [facility] [Outside] Discharge Diet: Regular Discharge Activity: Increase activity as tolerated Activity Restrictions/Additional Instructions: Follow-up with an outpatient mental health provider within 3-5 days if possible. [facility] [address] [facility]. [facility] [address] [place], [place] [id number] walk-in hours 7:30-2:30 go some time within the walk-in hours and request initial intake to get outpatient services started. Call Sharla Griffin daily about getting into residential treatment. call [phone] [facility] or [address] [address] For any financial assistance questions you might have, call Patient Accounts at [phone] Coding Level of Care Code Acute Lagging Machine Operator for Chg Fwd Diagnoses Alcohol use disorder Adjustment disorder with mixed disturbance of emotions and conduct F43.25 Depressive disorder, not elsewhere classified F32.9
[2019-06-23] MEDS: folic acid 1 mg Tablet PO (10:06)
[2019-06-23] MEDS: thiamine 100 mg Tablet PO (10:07)
[2019-06-23] MEDS: trazodone 50 mg Tablet PO (10:07)
[2019-06-23] MEDS: multivitamin therapeutic Tablet 1 TAB PO (10:07)
[2019-06-23 11:17] VITALS: BP 111/73; PULSE 68; RESP 17; TEMP 36.6; O2SAT 97
== END 2019-06-23 14:16 | disposition home or self-care (01) | DRG 897 ==
LOC: ER 03:43 → NP 05:11
PROVIDERS: Admitting Provider Psychiatry & Neurology Psychiatry; Emergency Provider Emergency Medicine; Visit Provider Psychiatry & Neurology Psychiatry
DX: F10.229 Alcohol dependence with intoxication, unspecified (principal); R45.851 Suicidal ideations; F43.25 Adjustment disorder with mixed disturbance of emotions and conduct; Y90.8 Blood alcohol level of 240 mg/100 ml or more; F32.9 Major depressive disorder, single episode, unspecified; Z59.0 Homelessness; I10 Essential (primary) hypertension; F41.9 Anxiety disorder, unspecified; Z86.718 Personal history of other venous thrombosis and embolism
CPT/HCPCS: 12345; 36415; 80053; 80307; 85025; 99284

== ENCOUNTER 2019-06-23 21:38 | Emergency (ER) | payer SELFPAY ==
[2019-06-23 21:43] VITALS: BP 144/101; PULSE 99; RESP 18; TEMP 36.6; O2SAT 96; BMI 24.0
--- NOTE | 2019-06-23 22:18 | ED_ITS ---
HPI - Dental/Oral General: Chief complaint: Dental/Oral Stated complaint: abscess on face Time Seen by Provider: 06/23/19 22:13 History of Present Illness: HPI Narrative: Patient is a 43-year-old male comes to the ED with left lower dental pain. Dental pain started 3 days ago. He states his left lower jaw is tender to the touch. No swelling currently. Denies fever, chills, chest pain shortness of breath, abdominal pain, nausea, vomiting, airway obstruction, Diarrhea, constipation, blood in stool, hematuria, dysuria. Review of Systems General: Reports: 10 or more systems reviewed and unremarkable except in HPI and below PFSH ED PFSH: Statuses (acute, chronic, etc) shown below reflect problem list status as previously entered and may not be historically accurate Social History Smoking and tobacco status: current every day smoker Physical Exam Const: COMMON NORMALS: oriented x3 HENMT: COMMON NORMALS: normocephalic HEAD & SCALP: normocephalic MOUTH: oral and palatal mucosa normal TEETH & GINGIVA: Yes abnormal tooth and associated gingiva lower left second molar , Yes caries (Extensive dental carriers on left lower mandible.) and Yes poor dentition THROAT: posterior oropharynx normal and uvula midline Neck/C-Spine: COMMON NORMALS: supple GENERAL: Yes normal visual inspection Resp: COMMON NORMALS: normal respiratory effort, no retractions, no use of accessory muscles and clear to auscultation bilaterally AUSCULTATION: clear to auscultation bilaterally Cardio: COMMON NORMALS: regular rate, regular rhythm, S1 normal heart sound, S2 normal heart sound, no gallops, no clicks, no murmurs and peripheral pulses 2+ throughout RATE: regular rate RHYTHM: regular rhythm HEART SOUNDS: S1 normal and S2 normal PERIPHERAL PULSES: pulses 2+ throughout GI: COMMON NORMALS: normal to inspection, nondistended, normoactive bowel sounds, soft to palpation, non-tender and no masses PALPATION: Yes soft : COMMON NORMALS: Yes no CVA tenderness BLADDER/KIDNEY EXAM: Yes no CVA tenderness Back/Pelvis: COMMON NORMALS: no CVA tenderness Neuro: COMMON NORMALS: oriented x3 and moves all extremities Course Vital Signs: Vital signs: Vital Signs Temperature 97.8 F 06/23/19 21:43 Pulse Rate 68 06/23/19 23:12 Respiratory Rate 18 06/23/19 23:12 Blood Pressure 114/68 06/23/19 23:12 Pulse Oximetry 98 06/23/19 23:12 Discharge Plan Discharge Patient Disposition: Home, Self-Care Clinical Impression: Infected dental carries Condition: Stable Prescriptions: New ibuprofen 600 mg tablet 600 mg PO Q8H Qty: 30 RF: 0 clindamycin HCl 150 mg capsule 300 mg PO Q8H 7 Days Qty: 42 RF: 0 No Action trazodone 50 mg Tablet 50 mg PO TID Qty: 90 RF: 0 trazodone 100 mg Tablet 100 mg PO BEDTIME Qty: 30 RF: 0 folic acid 1 mg Tablet 1 mg PO DAILY Qty: 30 RF: 0 thiamine mononitrate (vit B1) [Vitamin B-1 (mononitrate)] 100 mg Tablet 100 mg PO DAILY Qty: 30 RF: 0 Celexa 20 mg tablet 40 mg PO BEDTIME RF: 0 Discharge Orders: Discharge Order (Routine); Ordered 06/23/19 Ordered By: Rudolph Hanson Discharge Diet: Regular Discharge Activity: Resume usual activity Activity Restrictions/Additional Instructions: Follow-up with dentist in 5-7 days for reevaluation. Take full course of antibiotics as prescribed. Take the prescribed ibuprofen as needed for pain. Drink plenty of fluids. Discharge Date/Time: 06/23/19 23:17 Coding Level of Care Code ED Gaming Manager for Camila Alvares
[2019-06-23] MEDS: HYDROcodone-acetaminophen 7.5-325 mg Tablet 1 TAB PO (23:03)
[2019-06-23 23:12] VITALS: BP 114/68; PULSE 68; RESP 18; O2SAT 98
== END 2019-06-23 23:17 | disposition home or self-care (01) ==
PROVIDERS: Emergency Provider Physician Assistant
DX: K02.9 Dental caries, unspecified (principal); F17.210 Nicotine dependence, cigarettes, uncomplicated
CPT/HCPCS: 99281

== ENCOUNTER 2019-06-27 02:54 | Emergency (ER) | payer SELFPAY ==
[2019-06-27 02:59] VITALS: BP 142/122; PULSE 114; RESP 16; TEMP 36.8; O2SAT 96; BMI 23.6
--- NOTE | 2019-06-27 03:22 | ED_ITS ---
Entered by Aleena Brennan, acting as scribe for Pete Mccurdy DO Jun 27, 2019 02:54 HPI - Psych General: Chief Complaint: Psychiatric Symptoms Stated Complaint: SI/HI PFSH ED PFSH: Statuses (acute, chronic, etc) shown below reflect problem list status as previously entered and may not be historically accurate Social History Smoking and tobacco status: current every day smoker Discharge Plan Discharge Prescriptions: No Action trazodone 50 mg Tablet 50 mg PO TID Qty: 90 RF: 0 trazodone 100 mg Tablet 100 mg PO BEDTIME Qty: 30 RF: 0 folic acid 1 mg Tablet 1 mg PO DAILY Qty: 30 RF: 0 thiamine mononitrate (vit B1) [Vitamin B-1 (mononitrate)] 100 mg Tablet 100 mg PO DAILY Qty: 30 RF: 0 citalopram [Celexa] 20 mg tablet 40 mg PO BEDTIME RF: 0 ibuprofen 600 mg tablet 600 mg PO Q8H Qty: 30 RF: 0 clindamycin HCl 150 mg capsule 300 mg PO Q8H 7 Days Qty: 42 RF: 0 Coding Level of Care Code ED Security Rover for Camila Alvares
--- NOTE | 2019-06-27 03:23 | ED_ITS ---
Entered by Aleena Brennan, acting as scribe for Pete Mccurdy DO Jun 27, 2019 02:54 HPI - Psych General: Chief Complaint: Psychiatric Symptoms Stated Complaint: SI/HI Time Seen by Provider: 06/27/19 03:33 History of Present Illness: Associated symptoms: Deny auditory hallucinations or visual hallucinations Review of Systems Const: Denies: fever or chills Eyes: Denies: change in vision or blurry vision ENMT: Denies: painful swallowing, swelling of lips/tongue, bleeding gums, dental pain, Change in hearing, nose bleeds, post nasal drip or facial/sinus pain Card: Denies: chest pain, palpitations, irregular heart rhythm, edema, swelling of feet/ankles, shortness of breath on exertion or shortness of breath when lying down Resp: Denies: shortness of breath, productive cough, non-productive cough or wheezing GI: Denies: abdominal pain, nausea, vomiting, rectal pain, blood in stool or black tarry stool : Denies: difficulty urinating, painful urination, urinary frequency, urinary urgency or blood in urine Musc: Denies: neck pain, back pain, redness or joint warmth Skin/Breast: Denies: rash, itching or redness Neuro: Denies: headache, dizziness, vertigo, confusion or seizure-like activity Psych: Denies: anxiety, visual hallucinations or auditory hallucinations PFSH ED PFSH: Statuses (acute, chronic, etc) shown below reflect problem list status as previously entered and may not be historically accurate Social History Smoking and tobacco status: current every day smoker Physical Exam Const: GENERAL APPEARANCE: well developed ORIENTATION/CONSCIOUSNESS: Yes oriented to person, Yes oriented to place and Yes oriented to time HENMT: COMMON NORMALS: normocephalic, external ears normal and external nose normal HEAD & SCALP: normocephalic; no scalp tenderness FACE & SINUS: normal facial exam NOSE: external nose normal and no nasal discharge EXTERNAL EAR: Yes external ears normal MOUTH: tongue normal TEETH & GINGIVA: no abnormal tooth and associated gingiva THROAT: posterior oropharynx normal; no peritonsillar mass Eye: COMMON NORMALS: PERRL, EOMs intact bilaterally and conjunctivae normal EYELID: eyelids normal CONJUNCTIVA: Yes conjunctivae normal PUPIL: Yes PERRL Neck/C-Spine: COMMON NORMALS: full ROM GENERAL: No tracheal deviation CERVICAL SPINE: Yes normal cervical lordosis and No cervical spine tenderness Chest: COMMONS NORMALS: inspection of chest normal CHEST: No tenderness Resp: COMMON NORMALS: clear to auscultation bilaterally EFFORT & INSPECTI ON: No tachypneic, No respiratory distress, No retractions, No uses accessory muscles and No tracheal deviation AUSCULTATION: clear to auscultation bilaterally, no rhonchi, no wheezes and lung sounds not diminished Cardio: COMMON NORMALS: regular rate and regular rhythm RATE: regular rate RHYTHM: regular rhythm HEART SOUNDS: no murmurs PERIPHERAL PULSES: radial pulses present GI: INSPECTION: No abdominal distension AUSCULTATION: No hyperactive bowel sounds and No hypoactive bowel sounds PALPATION: No guarding and No rigid PERCUSSION: no dullness to percussion and no tympanic to percussion : COMMON NORMALS: Yes no CVA tenderness BLADDER/KIDNEY EXAM: Yes no CVA tenderness Back/Pelvis: COMMON NORMALS: no CVA tenderness Neuro: SENSORIUM/ORIENTATION: Yes oriented to person, Yes oriented to place and Yes oriented to time Psych: COMMON NORMALS: mental status grossly normal Skin: COMMON NORMALS: no rashes or lesions noted GENERAL SKIN EXAM: no rashes or lesions noted MDM - Psych Lab Data: Labs: Lab Results 06/27/19 06/27/19 Range/Units 03:49 03:49 WBC 7.2 (4.0-10.0) 10^3/ uL RBC 3.95 L (4.1-5.3) 10^6/u L Hgb 14.5 (11.7-16.6) g/dL Hct 42.3 (42.0-52.0) % MCV 107.1 H (80-94) fL MCH 36.7 H (28.0-34.0) pg MCHC 34.3 (30.0-36.0) g/dL RDW 11.7 L (12.1-15.1) % Plt Count 278 (130-400) 10^3/c mm MPV 9.0 (7.4-10.4) fL Neut % (Auto) 52.2 % Lymph % (Auto) 33.7 % [place] % (Auto) 11.4 % Eos % (Auto) 1.7 % Baso % (Auto) 0.7 % Neut # (Auto) 3.8 (1.8-7.7) 10^3/u L Lymph # (Auto) 2.4 (0.8-4.8) 10^3/u L [place] # (Auto) 0.8 (0.2-0.9) 10^3/u L Eos # (Auto) 0.1 (0.0-0.8) 10^3/u L Baso # (Auto) 0.1 (0.0-0.1) 10^3/u L Nucleated RBC % (a uto) 0 % Nucleated RBCs # 0.0 /100WBC Sodium 140 (136-145) mmol/L Potassium 3.8 (3.5-5.1) mmol/L Chloride 103 (98-107) mmol/L Carbon Dioxide 24 (22-29) mmol/L Anion Gap 16.8 (5-19) BUN 14 (6-20) mg/dL Creatinine 0.8 (0.7-1.2) mg/dL GFR Calculation 106.0 (90-130) mL/min Glucose 102 (74-109) mg/dL Calcium 8.7 (8.5-10.5) mg/dL Total Bilirubin 0.4 (0.15-1.2) mg/dL AST 27 (0-40) U/L ALT 35 (0-41) U/L Alkaline Phosphata se 92 (40-130) IU/L Total Protein 6.6 (6.6-8.7) g/dL Albumin 4.4 (3.5-5.2) g/dL Globulin 2.2 (1.3-4.6) g/dL Salicylates < 0.3 L (3-10) mg/dL Acetaminophen < 5.0 L (10-30) ug/mL Ethyl Alcohol 171 H (0-10) mg/dL Discharge Plan Discharge Patient Disposition: Left Against Medical Advice Prescriptions: No Action trazodone 50 mg Tablet 50 mg PO TID Qty: 90 RF: 0 trazodone 100 mg Tablet 100 mg PO BEDTIME Qty: 30 RF: 0 folic acid 1 mg Tablet 1 mg PO DAILY Qty: 30 RF: 0 thiamine mononitrate (vit B1) [Vitamin B-1 (mononitrate)] 100 mg Tablet 100 mg PO DAILY Qty: 30 RF: 0 citalopram [Celexa] 20 mg tablet 40 mg PO BEDTIME RF: 0 ibuprofen 600 mg tablet 600 mg PO Q8H Qty: 30 RF: 0 clindamycin HCl 150 mg capsule 300 mg PO Q8H 7 Days Qty: 42 RF: 0 Discharge Date/Time: 06/27/19 04:35 Coding Level of Care Code ED Maid Cleaning Cooking for Chg Fwpatricia The documentation recorded by the Mika frankel Stephanie Lyn, accurately reflects the service I personally performed and the decisions made by Kaz baldwin Jeremy John, DO Jun 27, 2019 02:54
--- NOTE | 2019-06-27 03:24 | PC.NURSE ---
Patient stated how he has eloped from places before and how he might . Informed Gloria HARVEY
--- NOTE | 2019-06-27 03:42 | W.ED.PSYCH ---
Documented by User: CANDICE Sebastian 06/28/19 06:57 HPI - Psych General: Chief Complaint: Psychiatric Symptoms Stated Complaint: SI/HI Time Seen by Provider: 06/27/19 03:33 Source: patient Mode of arrival: ambulatory Limitations: altered mental status History of Present Illness: HPI Narrative: Patient is a 43-year-old male who presents to ED today stating that he is not right in the head ; patient tells me he is having auditory and visual hallucinations; a thorough history is difficult to obtain from patient as he is clearly under the influence of methamphetamines; patient speech often is not coherent; he does tell me that he is at the end and wishes to ; he tells me he discharged from [facility] on Saturday; patient reports occasional alcohol use; he reports his last methamphetamine use was yesterday MD complaint: suicidal ideation and altered mental status Context: recent alcohol abuse and recent drug abuse Review of Systems General: Reports: ROS unobtainable due to mental status PFSH ED PFSH: Statuses (acute, chronic, etc) shown below reflect problem list status as previously entered and may not be historically accurate Social History Smoking and tobacco status: current every day smoker Physical Exam Const: COMMON NORMALS: no apparent distress, average body habitus, oriented x3 and alert ORIENTATION/CONSCIOUSNESS: Yes oriented to person, Yes oriented to place and Yes oriented to time Resp: COMMON NORMALS: normal respiratory effort and clear to auscultation bilaterally AUSCULTATION: clear to auscultation bilaterally Cardio: COMMON NORMALS: regular rhythm RATE: tachycardic RHYTHM: regular rhythm Neuro: COMMON NORMALS: oriented x3 SENSORIUM/ORIENTATION: Yes alert, Yes oriented to person, Yes oriented to place and Yes oriented to time Psych: COMMON NORMALS: cooperative ATTITUDE: Yes agitated ACTIVITY/MOTOR BEHAVIOR: Yes psychomotor agitation SPEECH: Yes excessive and Yes pressured THOUGHT PROCESS: incoherent and disorganized ATTENTION/CONCENTRATION: Yes attention grossly impaired and Yes concentration grossly impaired INSIGHT: poor JUDGEMENT: poor MDM - Psych MDM Narrative: Medical decision making narrative: Plan will be for medical clearance and speak to psychiatry for admission. Care will be transferred to Dr. Mccurdy. Lab Data: Labs: Lab Results 06/27/19 06/27/19 Range/Units 03:49 03:49 WBC 7.2 (4.0-10.0) 10^3/ uL RBC 3.95 L (4.1-5.3) 10^6/u L Hgb 14.5 (11.7-16.6) g/dL Hct 42.3 (42.0-52.0) % MCV 107.1 H (80-94) fL MCH 36.7 H (28.0-34.0) pg MCHC 34.3 (30.0-36.0) g/dL RDW 11.7 L (12.1-15.1) % Plt Count 278 (130-400) 10^3/c mm MPV 9.0 (7.4-10.4) fL Neut % (Auto) 52.2 % Lymph % (Auto) 33.7 % [place] % (Auto) 11.4 % Eos % (Auto) 1.7 % Baso % (Auto) 0.7 % Neut # (Auto) 3.8 (1.8-7.7) 10^3/u L Lymph # (Auto) 2.4 (0.8-4.8) 10^3/u L [place] # (Auto) 0.8 (0.2-0.9) 10^3/u L Eos # (Auto) 0.1 (0.0-0.8) 10^3/u L Baso # (Auto) 0.1 (0.0-0.1) 10^3/u L Nucleated RBC % (a uto) 0 % Nucleated RBCs # 0.0 /100WBC Sodium 140 (136-145) mmol/L Potassium 3.8 (3.5-5.1) mmol/L Chloride 103 (98-107) mmol/L Carbon Dioxide 24 (22-29) mmol/L Anion Gap 16.8 (5-19) BUN 14 (6-20) mg/dL Creatinine 0.8 (0.7-1.2) mg/dL GFR Calculation 106.0 (90-130) mL/min Glucose 102 (74-109) mg/dL Calcium 8.7 (8.5-10.5) mg/dL Total Bilirubin 0.4 (0.15-1.2) mg/dL AST 27 (0-40) U/L ALT 35 (0-41) U/L Alkaline Phosphata se 92 (40-130) IU/L Total Protein 6.6 (6.6-8.7) g/dL Albumin 4.4 (3.5-5.2) g/dL Globulin 2.2 (1.3-4.6) g/dL Salicylates < 0.3 L (3-10) mg/dL Acetaminophen < 5.0 L (10-30) ug/mL Ethyl Alcohol 171 H (0-10) mg/dL Discharge Plan Discharge Patient Disposition: Left Against Medical Advice Prescriptions: No Action trazodone 50 mg Tablet 50 mg PO TID Qty: 90 RF: 0 trazodone 100 mg Tablet 100 mg PO BEDTIME Qty: 30 RF: 0 folic acid 1 mg Tablet 1 mg PO DAILY Qty: 30 RF: 0 thiamine mononitrate (vit B1) [Vitamin B-1 (mononitrate)] 100 mg Tablet 100 mg PO DAILY Qty: 30 RF: 0 citalopram [Celexa] 20 mg tablet 40 mg PO BEDTIME RF: 0 ibuprofen 600 mg tablet 600 mg PO Q8H Qty: 30 RF: 0 clindamycin HCl 150 mg capsule 300 mg PO Q8H 7 Days Qty: 42 RF: 0 Discharge Date/Time: 06/27/19 04:35 Coding Level of Care Code ED Superintendent [employer]ing [employer] for Chg Fwd Exam Problem Focused Documented by User: Pete Mccurdy DO 06/27/19 07:16 HPI - Psych General: Chief Complaint: Psychiatric Symptoms Stated Complaint: SI/HI Time Seen by Provider: 06/27/19 03:33 PFSH ED PFSH: Statuses (acute, chronic, etc) shown below reflect problem list status as previously entered and may not be historically accurate Social History Smoking and tobacco status: current every day smoker MDM - Psych Lab Data: Labs: Lab Results 06/27/19 06/27/19 Range/Units 03:49 03:49 WBC 7.2 (4.0-10.0) 10^3/ uL RBC 3.95 L (4.1-5.3) 10^6/u L Hgb 14.5 (11.7-16.6) g/dL Hct 42.3 (42.0-52.0) % MCV 107.1 H (80-94) fL MCH 36.7 H (28.0-34.0) pg MCHC 34.3 (30.0-36.0) g/dL RDW 11.7 L (12.1-15.1) % Plt Count 278 (130-400) 10^3/c mm MPV 9.0 (7.4-10.4) fL Neut % (Auto) 52.2 % Lymph % (Auto) 33.7 % [place] % (Auto) 11.4 % Eos % (Auto) 1.7 % Baso % (Auto) 0.7 % Neut # (Auto) 3.8 (1.8-7.7) 10^3/u L Lymph # (Auto) 2.4 (0.8-4.8) 10^3/u L [place] # (Auto) 0.8 (0.2-0.9) 10^3/u L Eos # (Auto) 0.1 (0.0-0.8) 10^3/u L Baso # (Auto) 0.1 (0.0-0.1) 10^3/u L Nucleated RBC % (a uto) 0 % Nucleated RBCs # 0.0 /100WBC Sodium 140 (136-145) mmol/L Potassium 3.8 (3.5-5.1) mmol/L Chloride 103 (98-107) mmol/L Carbon Dioxide 24 (22-29) mmol/L Anion Gap 16.8 (5-19) BUN 14 (6-20) mg/dL Creatinine 0.8 (0.7-1.2) mg/dL GFR Calculation 106.0 (90-130) mL/min Glucose 102 (74-109) mg/dL Calcium 8.7 (8.5-10.5) mg/dL Total Bilirubin 0.4 (0.15-1.2) mg/dL AST 27 (0-40) U/L ALT 35 (0-41) U/L Alkaline Phosphata se 92 (40-130) IU/L Total Protein 6.6 (6.6-8.7) g/dL Albumin 4.4 (3.5-5.2) g/dL Globulin 2.2 (1.3-4.6) g/dL Salicylates < 0.3 L (3-10) mg/dL Acetaminophen < 5.0 L (10-30) ug/mL Ethyl Alcohol 171 H (0-10) mg/dL Discharge Plan Discharge Patient Disposition: Left Against Medical Advice Prescriptions: No Action trazodone 50 mg Tablet 50 mg PO TID Qty: 90 RF: 0 trazodone 100 mg Tablet 100 mg PO BEDTIME Qty: 30 RF: 0 folic acid 1 mg Tablet 1 mg PO DAILY Qty: 30 RF: 0 thiamine mononitrate (vit B1) [Vitamin B-1 (mononitrate)] 100 mg Tablet 100 mg PO DAILY Qty: 30 RF: 0 citalopram [Celexa] 20 mg tablet 40 mg PO BEDTIME RF: 0 ibuprofen 600 mg tablet 600 mg PO Q8H Qty: 30 RF: 0 clindamycin HCl 150 mg capsule 300 mg PO Q8H 7 Days Qty: 42 RF: 0 Discharge Date/Time: 06/27/19 04:35 Coding Level of Care Code ED Superintendent [employer]ing [employer] for Joeg Giorgio Exam Problem Focused
[2019-06-27 03:52] LABS: Basophils # 0.1 10^3/uL (0.0-0.1); Basophils % 0.7 %; Eosinophils # 0.1 10^3/uL (0.0-0.8); Eosinophils % 1.7 %; Hematocrit 42.3 % (42.0-52.0); Hemoglobin 14.5 g/dL (11.7-16.6); Lymphocytes # 2.4 10^3/uL (0.8-4.8); Lymphocytes % 33.7 %; Mean Corpuscular HGB Conc 34.3 g/dL (30.0-36.0); Mean Corpuscular Hemoglobin 36.7 pg (28.0-34.0); Mean Corpuscular Volume 107.1 fL (80-94); Monocytes # 0.8 10^3/uL (0.2-0.9); Monocytes % 11.4 %; Neutrophils # 3.8 10^3/uL (1.8-7.7); Neutrophils % 52.2 %; Nucleated Red Blood Cells % 0 %; Platelet Count 278 10^3/cmm (130-400); Red Blood Count 3.95 10^6/uL (4.1-5.3); Red Cell Distribution Width 11.7 % (12.1-15.1); White Blood Count 7.2 10^3/uL (4.0-10.0)
[2019-06-27] MEDS: nicotine 21 mg Patch 1 PATCH TRANSDERMA (03:55)
[2019-06-27 04:19] LABS: Alanine Aminotransferase 35 U/L (0-41); Albumin Level 4.4 g/dL (3.5-5.2); Alcohol Level 171 mg/dL (0-10); Alkaline Phosphatase 92 IU/L (40-130); Anion Gap 16.8 (5-19); Aspartate Amino Transferase 27 U/L (0-40); Blood Urea Nitrogen 14 mg/dL (6-20); Calcium 8.7 mg/dL (8.5-10.5); Carbon Dioxide 24 mmol/L (22-29); Chloride 103 mmol/L (98-107); Globulin 2.2 g/dL (1.3-4.6); Glucose 102 mg/dL (74-109); Potassium 3.8 mmol/L (3.5-5.1); Sodium 140 mmol/L (136-145); Total Bilirubin 0.4 mg/dL (0.15-1.2); Total Protein 6.6 g/dL (6.6-8.7)
[2019-06-27 04:24] LABS: Acetaminophen < 5.0 ug/mL (10-30); Salicylate < 0.3 mg/dL (3-10)
--- NOTE | 2019-06-27 04:28 | PC.NURSE ---
Patient agitated and wanting to leave, patient stating we are not doing shit for him here and he would be better off leaving and getting help elsewhere, Dr. Mccurdy advised and okayed to go AMA, Patient signed AMA form
== END 2019-06-27 04:35 | disposition left against medical advice (07) ==
LOC: ER 02:57
PROVIDERS: Emergency Provider Physician Assistant
DX: R45.851 Suicidal ideations (principal); Z53.21 Procedure and treatment not carried out due to patient leaving prior to being seen by health care provider; F17.210 Nicotine dependence, cigarettes, uncomplicated
CPT/HCPCS: 36415; 80053; 80307; 85025; 99284

== ENCOUNTER 2019-06-28 23:03 | Inpatient (IN) | payer SELFPAY ==
[2019-06-28 23:11] VITALS: BP 139/92; PULSE 103; RESP 20; TEMP 36.6; O2SAT 94; BMI 24.3
--- NOTE | 2019-06-28 23:23 | ED_ITS ---
Entered by Aleena Brennan, acting as scribe for Pete Mccurdy DO HPI - Psych General: Chief Complaint: Psychiatric Symptoms Stated Complaint: SI Time Seen by Provider: 06/28/19 23:08 Source: patient Mode of arrival: EMS Limitations: no limitations History of Present Illness: HPI Narrative: 43 yo m came to the er by [facility] for SI. Onset was tonight. Pt states that he has had some whiskey tonight, he states that he had about a pint. Pt states that he just wants to go to the NPU. pT states that he has been seeing things and also plans to use shoe strings to hang himeself end his life. MD complaint: suicidal ideation Onset (ago): day(s) (today) Duration: constant History of same: Yes Relieving factors: none Exacerbating factors: none Context: recent alcohol abuse Associated psychiatric symptoms: suicidal ideation and visual hallucinations Associated symptoms: Reports auditory hallucinations and visual hallucinations Treatments prior to arrival: none If self harm: admits thoughts of self harm and has plan Review of Systems Const: Denies: fever or chills Eyes: Denies: change in vision or blurry vision ENMT: Denies: painful swallowing or swelling of lips/tongue Card: Denies: chest pain, palpitations, irregular heart rhythm, edema, swelling of feet/ankles, shortness of breath on exertion or shortness of breath when lying down Resp: Denies: shortness of breath, productive cough, non-productive cough or wheezing GI: Reports: abdominal pain; Denies: nausea or vomiting : Denies: painful urination Skin/Breast: Denies: rash Neuro: Reports: headache Psych: Reports: visual hallucinations and auditory hallucinations; Denies: anxiety PFSH ED PFSH: Statuses (acute, chronic, etc) shown below reflect problem list status as previously entered and may not be historically accurate Social History Smoking and tobacco status: current every day smoker Physical Exam Const: GENERAL APPEARANCE: well developed ORIENTATION/CONSCIOUSNESS: Yes oriented to person and Yes oriented to place; not oriented to time HENMT: COMMON NORMALS: normocephalic, external ears normal and external nose normal HEAD & SCALP: normocephalic; no scalp tenderness FACE & SINUS: normal facial exam NOSE: external nose normal and no nasal discharge EXTERNAL EAR: Yes external ears normal Eye: COMMON NORMALS: PERRL, EOMs intact bilaterally and conjunctivae normal EYELID: eyelids normal CONJUNCTIVA: Yes conjunctivae normal PUPIL: Yes PERRL Chest: COMMONS NORMALS: inspection of chest normal CHEST: No tenderness Resp: COMMON NORMALS: clear to auscultation bilaterally EFFORT & INSPECTION: No tachypneic, No respiratory distress, No retractions, No uses accessory muscles and No tracheal deviation AUSCULTATION: clear to auscultation bilaterally, no rhonchi, no wheezes and lung sounds not diminished Cardio: COMMON NORMALS: regular rate and regular rhythm RATE: regular rate RHYTHM: regular rhythm HEART SOUNDS: no murmurs PERIPHERAL PULSES: radial pulses present GI: INSPECTION: No abdominal distension AUSCULTATION: No hyperactive bowel sounds and No hypoactive bowel sounds PALPATION: No guarding and No rigid PERCUSSION: no dullness to percussion and no tympanic to percussion Neuro: SENSORIUM/ORIENTATION: Yes oriented to person, Yes oriented to place and No oriented to time Psych: ATTITUDE: Yes calm SPEECH: Yes slow and Yes slurred THOUGHT CONTENT: Yes suicidality ATTENTION/CONCENTRATION: Yes concentration grossly impaired (intoxicated) Skin: COMMON NORMALS: no rashes or lesions noted GENERAL SKIN EXAM: no rashes or lesions noted MDM - Psych Lab Data: Labs: Lab Results 06/28/19 06/28/19 06/29/19 Range/Units 23:45 23:45 00:38 WBC 6.4 (4.0-10.0) 10^3/ uL RBC 4.00 L (4.1-5.3) 10^6/u L Hgb 14.5 (11.7-16.6) g/dL Hct 44.4 (42.0-52.0) % MCV 111.0 H (80-94) fL MCH 36.3 H (28.0-34.0) pg MCHC 32.7 (30.0-36.0) g/dL RDW 11.9 L (12.1-15.1) % Plt Count 288 (130-400) 10^3/c mm MPV 8.7 (7.4-10.4) fL Neut % (Auto) 46.5 % Lymph % (Auto) 36.2 % Woodruff % (Auto) 13.0 % Eos % (Auto) 3.4 % Baso % (Auto) 0.6 % Neut # (Auto) 3.0 (1.8-7.7) 10^3/u L Lymph # (Auto) 2.3 (0.8-4.8) 10^3/u L Woodruff # (Auto) 0.8 (0.2-0.9) 10^3/u L Eos # (Auto) 0.2 (0.0-0.8) 10^3/u L Baso # (Auto) 0.0 (0.0-0.1) 10^3/u L Nucleated RBC % (a uto) 0 % Nucleated RBCs # 0.0 /100WBC Sodium 142 (136-145) mmol/L Potassium 3.7 (3.5-5.1) mmol/L Chloride 105 (98-107) mmol/L Carbon Dioxide 23 (22-29) mmol/L Anion Gap 17.7 (5-19) BUN 14 (6-20) mg/dL Creatinine 0.8 (0.7-1.2) mg/dL GFR Calculation 106.0 (90-130) mL/min Glucose 117 H (74-109) mg/dL Calcium 8.6 (8.5-10.5) mg/dL Total Bilirubin 0.2 (0.15-1.2) mg/dL AST 29 (0-40) U/L ALT 32 (0-41) U/L Alkaline Phosphata se 108 (40-130) IU/L Total Protein 6.8 (6.6-8.7) g/dL Albumin 4.0 (3.5-5.2) g/dL Globulin 2.8 (1.3-4.6) g/dL TSH 0.33 (0.27-4.20) uIU/ mL Urine Color Yellow (Yellow) Urine Appearance Clear (CLEAR) Urine pH 5 (5-7) Ur Specific Gravit y 1.020 (1.005-1.030) Urine Protein Neg (Negative) Urine Glucose (UA) Norm (Normal) Urine Ketones Negative (Negative) Urine Occult Blood Neg (Negative) Urine Nitrate Negative (Negative) Urine Bilirubin Neg (NEGATIVE) Urine Urobilinogen Norm (Negative) mg/dL Ur Leukocyte Tammy ase Negative (Negative) Salicylates < 0.3 L (3-10) mg/dL Urine Opiates Scre en (Negative) ng/mL Acetaminophen < 5.0 L (10-30) ug/mL Ur Barbiturates Sc reen (Negative) ng/mL Ur Phencyclidine S crn (Negative) ng/mL Ur Amphetamines Sc reen (Negative) ng/mL U Benzodiazepines Scrn (Negative) ng/mL Urine Cocaine Scre en (Negative) ng/mL U Marijuana (THC) Screen (Negative) ng/mL Ethyl Alcohol 287 H (0-10) mg/dL 06/29/19 Range/Units 00:38 WBC (4.0-10.0) 10^3/ uL RBC (4.1-5.3) 10^6/u L Hgb (11.7-16.6) g/dL Hct (42.0-52.0) % MCV (80-94) fL MCH (28.0-34.0) pg MCHC (30.0-36.0) g/dL RDW (12.1-15.1) % Plt Count (130-400) 10^3/c mm MPV (7.4-10.4) fL Neut % (Auto) % Lymph % (Auto) % Woodruff % (Auto) % Eos % (Auto) % Baso % (Auto) % Neut # (Auto) (1.8-7.7) 10^3/u L Lymph # (Auto) (0.8-4.8) 10^3/u L Woodruff # (Auto) (0.2-0.9) 10^3/u L Eos # (Auto) (0.0-0.8) 10^3/u L Baso # (Auto) (0.0-0.1) 10^3/u L Nucleated RBC % (a uto) % Nucleated RBCs # /100WBC Sodium (136-145) mmol/L Potassium (3.5-5.1) mmol/L Chloride (98-107) mmol/L Carbon Dioxide (22-29) mmol/L Anion Gap (5-19) BUN (6-20) mg/dL Creatinine (0.7-1.2) mg/dL GFR Calculation (90-130) mL/min Glucose (74-109) mg/dL Calcium (8.5-10.5) mg/dL Total Bilirubin (0.15-1.2) mg/dL AST (0-40) U/L ALT (0-41) U/L Alkaline Phosphata se (40-130) IU/L Total Protein (6.6-8.7) g/dL Albumin (3.5-5.2) g/dL Globulin (1.3-4.6) g/dL TSH (0.27-4.20) uIU/ mL Urine Color (Yellow) Urine Appearance (CLEAR) Urine pH (5-7) Ur Specific Gravit y (1.005-1.030) Urine Protein (Negative) Urine Glucose (UA) (Normal) Urine Ketones (Negative) Urine Occult Blood (Negative) Urine Nitrate (Negative) Urine Bilirubin (NEGATIVE) Urine Urobilinogen (Negative) mg/dL Ur Leukocyte Tammy ase (Negative) Salicylates (3-10) mg/dL Urine Opiates Scre en Negative (Negative) ng/mL Acetaminophen (10-30) ug/mL Ur Barbiturates Sc reen Negative (Negative) ng/mL Ur Phencyclidine S crn Negative (Negative) ng/mL Ur Amphetamines Sc reen Negative (Negative) ng/mL U Benzodiazepines Scrn Negative (Negative) ng/mL Urine Cocaine Scre en Negative (Negative) ng/mL U Marijuana (THC) Screen Negative (Negative) ng/mL Ethyl Alcohol (0-10) mg/dL Discharge Plan Discharge Admit Provider: Shola Em Discharge Date/Time: 06/29/19 02:00 Coding Level of Care Code ED Production Graphic Designer for dale Alvares The documentation recorded by the Mika frankel Stephanie Lyn, accurately reflects the service I personally performed and the decisions made by Kaz baldwin Jeremy John, DO Jun 28, 2019 23:03
--- NOTE | 2019-06-28 23:36 | PC.NURSE ---
patient resting in bed, advised charge nurse of need for patient sitter
[2019-06-28 23:53] LABS: Basophils % 0.6 %; Eosinophils # 0.2 10^3/uL (0.0-0.8); Eosinophils % 3.4 %; Hematocrit 44.4 % (42.0-52.0); Hemoglobin 14.5 g/dL (11.7-16.6); Lymphocytes # 2.3 10^3/uL (0.8-4.8); Lymphocytes % 36.2 %; Mean Corpuscular HGB Conc 32.7 g/dL (30.0-36.0); Mean Corpuscular Hemoglobin 36.3 pg (28.0-34.0); Mean Platelet Volume 8.7 fL (7.4-10.4); Monocytes # 0.8 10^3/uL (0.2-0.9); Neutrophils % 46.5 %; Nucleated Red Blood Cells % 0 %; Platelet Count 288 10^3/cmm (130-400); Red Cell Distribution Width 11.9 % (12.1-15.1); White Blood Count 6.4 10^3/uL (4.0-10.0)
[2019-06-29 00:19] LABS: Alanine Aminotransferase 32 U/L (0-41); Alcohol Level 287 mg/dL (0-10); Alkaline Phosphatase 108 IU/L (40-130); Anion Gap 17.7 (5-19); Aspartate Amino Transferase 29 U/L (0-40); Blood Urea Nitrogen 14 mg/dL (6-20); Calcium 8.6 mg/dL (8.5-10.5); Carbon Dioxide 23 mmol/L (22-29); Chloride 105 mmol/L (98-107); Globulin 2.8 g/dL (1.3-4.6); Glucose 117 mg/dL (74-109); Potassium 3.7 mmol/L (3.5-5.1); Sodium 142 mmol/L (136-145); Thyroid Stimulating Hormone 0.33 uIU/mL (0.27-4.20); Total Bilirubin 0.2 mg/dL (0.15-1.2); Total Protein 6.8 g/dL (6.6-8.7)
[2019-06-29 00:25] LABS: Acetaminophen < 5.0 ug/mL (10-30); Salicylate < 0.3 mg/dL (3-10)
[2019-06-29 00:53] LABS: Add Urine Microscopic? NO
[2019-06-29 01:05] LABS: Bilirubin Urine Neg (NEGATIVE); Blood Urine Neg (Negative); Glucose Urine UA Norm (Normal); Ketones Urine Negative (Negative); Leukocyte Esterase Urine Negative (Negative); Nitrate Urine Negative (Negative); Protein Urine Neg (Negative); Urine Appearance Clear (CLEAR); Urine Color Yellow (Yellow); Urobilinogen Urine Norm (Negative); pH Urine 5 (5-7)
[2019-06-29 01:09] LABS: Amphetamines Screen Urine Negative (Negative); Barbiturates Screen Urine Negative (Negative); Benzodiazepines Screen Urine Negative (Negative); Cocaine Screen Urine Negative (Negative); Opiate Screen Urine Negative (Negative); PCP Screen Urine Negative (Negative); THC Screen Urine Negative (Negative)
[2019-06-29 02:28] VITALS: BP 127/90; PULSE 87; RESP 20; O2SAT 94
[2019-06-29 06:00] VITALS: BP 126/83; PULSE 93; RESP 18; TEMP 36.9; O2SAT 97
[2019-06-29] MEDS: nicotine 2 mg Gum BUCCAL (09:35)
[2019-06-29 13:25] VITALS: BP 137/90; PULSE 83; RESP 18; TEMP 36.5; O2SAT 98
[2019-06-29] MEDS: clindamycin 150 mg Capsule 300 MG PO (18:34)
--- NOTE | 2019-06-29 18:49 | P.HP_ITS ---
Providers/Chief Complaint Admitting Physician: Lucio Valdes M.D. Chief Complaint: SI HPI NPU History of Present Illness Ludin Gordon is a 43-year-old man who presents today with a blood alcohol level of 287 requesting detoxification services. He says that he has been drinking alcohol continuously for the past month. He cannot give an estimate on how much alcohol he drinks per day. He has a history of DTs seizure while going through alcohol withdrawal. Otherwise he denies symptoms of depression. He says he would like to get back on antidepressant medication. However he denies suicidal or homicidal ideation. He denies presence of auditory or visual hallucinations. He denies irritability or anhedonia. He said that he had taken Celexa 40 mg daily for several years. He has not been on it for 2 months. Says that it did seem to stop working and would like to try something else. It is n oted that he has been globally noncompliant with outpatient referrals. When asked about primary care physician, he cannot provide a name. So his statements of being compliant with medication for several years is in doubt. Meds NPU Home Medications Medication Instructions Recorded Confirmed Type citalopram [Celexa] 40 mg PO BEDTIME 06/23/19 06/27/19 History Allergies Allergy/AdvReac Type Severity Reaction Status Date / Time No Known Allergies Allergy Verified 06/23/19 21:42 [facility] NPU PFS: Statuses (acute, chronic, etc) shown below reflect problem list status as previously entered and may not be historically accurate Social History Smoking and tobacco status: current every day smoker Other Psychiatric History: Other Psychiatric History: No psychiatric diagnosis or hospitalization except for alcohol abuse disorder. Mental Status Exam MSE Comments: The patient is a bit foggy but oriented to person, place, time, and situation. Hygiene is scruffy. Sensorium is inebriated. The patient main tains appropriate eye contact, is cooperative and relates well to me. Behavior shows no psychomotor agitation. Mood is calm but dysphoric. Affect is flat, appropriate to his current mood. Thought processes are organized and free of racing, blocking or looseness of association. Speech is of normal rate and volume, without dysarthria, aprosody or pressure. There is no inordinate latency of response. The patient denies auditory or visual hallucinations or delusions. Thought processes are integrated and free of any racing, blocking or looseness of association. The patient denies suicidal or homicidal ideation, plan or intent. Memory is intact for recent and remote events. The patient is cooperative and relates well to me. Fund of knowledge is adequate given vocabulary. Insight and judgment were deemed to be adequate given the recognition of problems and desire for treatment. Vitals/I&O/Wt Last Vital Signs Temp 97.7 F 06/29/19 13:25 Pulse 83 06/29/19 13:25 Resp 18 06/29/19 13:25 BP 137/90 06/29/19 13:25 Pulse Ox 98 06/29/19 13:25 Weight last 48 hrs Weight 170 lb Physical Exam Narrative: EXAM NARRATIVE: Const: COMMON NORMALS: oriented x3 HENMT: COMMON NORMALS: normocephalic HEAD & SCALP: normocephalic MOUTH: oral and palatal mucosa normal TEETH & GINGIVA: abnormal tooth and associated gingiva lower left second molar , caries (Extensive dental carriers on left lower mandible.) and poor dentition THROAT: posterior oropharynx normal and uvula midline Neck/C-Spine: COMMON NORMALS: supple GENERAL: Yes normal visual inspection Resp: COMMON NORMALS: normal respiratory effort, no retractions, no use of accessory muscles and clear to auscultation bilaterally AUSCULTATION: clear to auscultation bilaterally Cardio: COMMON NORMALS: regular rate, regular rhythm, S1 normal heart sound, S2 normal heart sound, no gallops, no clicks, no murmurs and peripheral pulses 2+ throughout RATE: regular rate RHYTHM: regular rhythm HEART SOUNDS: S1 normal and S2 normal PERIPHERAL PULSES: pulses 2+ throughout GI: COMMON NORMALS: normal to inspection, nondistended, normoactive bowel sounds, soft to palpation, non-tender and no masses PALPATION: Yes soft : COMMON NORMALS: Yes no CVA tenderness BLADDER/KIDNEY EXAM: Yes no CVA tenderness Back/Pelvis: COMMON NORMALS: no CVA tenderness Neuro: COMMON NORMALS: oriented x3 and moves all extremities Data NPU : 06/28/19 23:45 06/28/19 23:45 A&P Assessment and plan (1) Infected dental carries: Significant infection. Patient started on clindamycin per ED. Status: Acute Code(s): K02.9 - Dental caries, unspecified; K04.7 - Periapical abscess without sinus (2) Depressive disorder, not elsewhere classified: Patient is not suicidal. He is initiated on his antidepressant pharmacotherapy Status: Acute Code(s): F32.9 - Major depressive disorder, single episode, unspecified (3) Alcohol use disorder: Patient on CIWA protocol. Status: Acute Involuntary Hold Information 96 Hour Hold: 96 Hour Involuntary Admission: No Attestations NPU Medical Necessity Statement*: This patient arrives with a high BAL and is in the throes of detox. I anticipate 5-7 midnights additional hospitalization. Time Spent in Patient Care: Greater than 35 minutes (>than 50% of time spent in counselling and/or direct pt care on unit) . 50 minutes [id number] time. Coding Level of Care Code Acute Hairspring Inspector for Camila Alvares Diagnoses Infected dental carries K02.9; K04.7 Depressive disorder, not elsewhere classified F32.9 Alcohol use disorder
[2019-06-29 21:02] VITALS: BP 117/78; PULSE 77; RESP 21; TEMP 36.7; O2SAT 96
[2019-06-29] MEDS: trazodone 100 mg Tablet PO (21:28)
[2019-06-29] MEDS: trazodone 50 mg Tablet PO (21:28)
[2019-06-30] MEDS: clindamycin 150 mg Capsule 300 MG PO ×5 (01:07→23:41)
[2019-06-30 06:00] VITALS: BP 123/78; PULSE 81; RESP 17; TEMP 36.7; O2SAT 96
[2019-06-30] MEDS: thiamine 100 mg Tablet PO (08:50)
[2019-06-30] MEDS: citalopram 20 mg Tablet 40 MG PO (08:50)
[2019-06-30] MEDS: multivitamin therapeutic Tablet 1 TAB PO (08:50)
[2019-06-30] MEDS: folic acid 1 mg Tablet PO (08:50)
[2019-06-30] MEDS: trazodone 50 mg Tablet PO ×3 (08:59→21:15)
[2019-06-30] MEDS: nicotine 2 mg Gum BUCCAL ×2 (09:54→14:50)
[2019-06-30] MEDS: acetaminophen 325 mg Tablet 650 MG PO (10:29)
[2019-06-30 14:00] VITALS: BP 133/88; PULSE 78; RESP 18; TEMP 36.7; O2SAT 96
--- NOTE | 2019-06-30 14:08 | PM.NPN ---
Subjective NPU Subjective: Interval history: The patient's CIWA score has descended to the point that he no longer receives lorazepam. He still a little nervous and wants opiates for migraine, which he is not getting. He thinks he will be ready to contend with the slings and arrows of outrageous fortune in a couple of days. Medications: Reviewed: Yes Medication Review Details: Citalopram makes him sleepy of given in the morning. I will move that to the evening. The clindamycin has reduced his pain at least it will stop for the spread of any infection. Mental Status Exam MSE Comments: The patient is alert and oriented to person, place, time, and situation. Hygiene is disheveled. Sensorium is spotty but he actually understands what we tell him and what's going on around him. The patient maintains appropriate eye contact, is cooperative and relates well to me. Behavior shows no psychomotor agitation. Mood is calm and euthymic. Affect is appropriate to his current mood. Thought processes are slightly scattered but they are free of racing, blocking or looseness of association. Speech is of normal rate and volume, without dysarthria, aprosody or pressure. There is no inordinate latency of response. The patient denies auditory or visual hallucinations or delusions. The patient denies suicidal or homicidal ideation, plan or intent. He exhibits no assaultive behavior this morning and seems at peace. Memory is intact for remote events. Fund of knowledge is adequate given vocabulary. Insight and judgment were deemed to be good given the recognition of problems and desire for treatment. Vitals/I&O/Wt Last Vital Signs Temp 98.0 F 06/30/19 06:00 Pulse 81 06/30/19 06:00 Resp 17 06/30/19 06:00 BP 123/78 06/30/19 06:00 Pulse Ox 96 06/30/19 06:00 Weight last 48 hrs Weight 170 lb Physical Exam Narrative: EXAM NARRATIVE: The patient appeared thin but adequately nourished and normally developed. He looks a little scruffy as if he is playing rode hard and put away wet. Vital signs as documented. Head exam is unremarkable. No scleral icterus or corneal arcus noted. Neck is without jugular venous distension, thyromegaly, or carotid bruits. Lungs are clear to auscultation and percussion. Heart normal sinus rhythm, no murmurs. Abdomen bland. Extremities no limitation of motion, no lower extremity edema. Neurological cranial nerves II to XII intact. No cerebellar, sensory or motor deficit noted. Mental status as above. Data NPU : 06/28/19 23:45 06/28/19 23:45 A&P Assessment and plan (1) Alcohol use disorder: Status: Acute (2) Infected dental carries: Status: Acute Code(s): K02.9 - Dental caries, unspecified; K04.7 - Periapical abscess without sinus Involuntary Hold Information 96 Hour Hold: 96 Hour Involuntary Admission: No Attestations NPU Medical Necessity Statement*: Experiencing declining symptoms of detox. I anticipate 1 or 2 days additional hospitalization Coding Level of Care Code Acute Records Management Engineer for Camila Alvares Diagnoses Alcohol use disorder Infected dental carries K02.9; K04.7
[2019-06-30] MEDS: trazodone 100 mg Tablet PO (21:16)
[2019-06-30 22:00] VITALS: BP 118/79; PULSE 72; RESP 20; TEMP 36.6; O2SAT 96
[2019-07-01 06:00] VITALS: BP 128/83; PULSE 87; RESP 20; TEMP 36.6; O2SAT 95
[2019-07-01] MEDS: clindamycin 150 mg Capsule 300 MG PO ×3 (06:06→17:49)
[2019-07-01] MEDS: thiamine 100 mg Tablet PO (08:56)
[2019-07-01] MEDS: multivitamin therapeutic Tablet 1 TAB PO (08:56)
[2019-07-01] MEDS: folic acid 1 mg Tablet PO (08:56)
[2019-07-01] MEDS: trazodone 50 mg Tablet PO ×3 (08:57→20:24)
[2019-07-01] MEDS: nicotine 2 mg Gum BUCCAL ×3 (09:47→17:03)
[2019-07-01] MEDS: acetaminophen 325 mg Tablet 650 MG PO (09:47)
[2019-07-01] MEDS: fluticasone nasal spray 16gm Btl 2 SPRAY NASAL ×2 (09:49→17:04)
--- NOTE | 2019-07-01 12:57 | P.PN_ITS ---
Subjective NPU Subjective: Interval history: Patient feels better with each passing day. Sobriety does not bother him at all. On the other hand, his bipolar disorder does cause [facility] [place]. That's bothersome. He says he has never been on lithium. I educated him on the risks and benefits including but not limited to potential toxicity renal failure and hypothyroidism. He agrees to proceed. I explained the necessity for testing on a regular basis as well as monitoring of various physiologic parameters. Medications: Reviewed: Yes Mental Status Exam MSE Comments: The patient is alert and oriented to person, place, time, and situation. Hygiene is clean and well-groomed. Sensorium is clear and he understands what we tell him and what's going on around him. The patient maintains appropriate eye contact, is cooperative and relates well to me. Behavior shows no psychomotor agitation. Mood is calm and euthymic. Affect is appropriate. Thought processes are slightly scattered but they are free of blocking or looseness of association. Speech is of normal rate and volume, without dysarthria, aprosody. There is no inordinate latency of response. The patient denies auditory or visual hallucinations or delusions. The patient denies suicidal or homicidal ideation, plan or intent. He exhibits no assaultive behavior this morning. Memory is intact for recent and remote events. Fund of knowledge is adequate given vocabulary. Insight and judgment were deemed to be good given his recognition of problems and desire for treatment. Vitals/I&O/Wt Last Vital Signs Temp 97.8 F 07/01/19 06:00 Pulse 87 07/01/19 06:00 Resp 20 H 07/01/19 06:00 BP 128/83 07/01/19 06:00 Pulse Ox 95 07/01/19 06:00 Physical Exam Narrative: EXAM NARRATIVE: The patient appeared thin but adequately nourished and normally developed. Vital signs as documented. Head exam is unremarkable. No scleral icterus or corneal arcus noted. Neck is without jugular venous distension, thyromegaly, or carotid bruits. Lungs are clear to auscultation and percussion. Heart normal sinus rhythm, no murmurs. Abdomen bland. Extremities no limitation of motion, no lower extremity edema. Neurological cranial nerves II to XII intact. No cerebellar, sensory or motor deficit noted. Mental status as above. Data NPU : 06/28/19 23:45 06/28/19 23:45 A&P Assessment and plan (1) Alcohol use disorder: Patient proceeds apace with detox without complication. Status: Acute (2) Adjustment disorder with mixed disturbance of emotions and conduct: Status: Acute Code(s): F43.25 - Adjustment disorder with mixed disturbance of emotions and conduct (3) Bipolar 1 disorder, manic, mild: [place] therapy with monitoring. Status: Acute Code(s): F31.11 - Bipolar disorder, current episode manic without psychotic features, mild Involuntary Hold Information 96 Hour Hold: 96 Hour Involuntary Admission: No Attestations NPU Medical Necessity Statement*: Establishment of treatment for his mood disorder will require at least 4-5 midnights additional stay. Time Spent in Patient Care: Greater than 35 minutes (>than 50% of time spent in counselling and/or direct pt care on unit) . Coding Level of Care Code Acute Food Safety Technician for Camila Alvares Diagnoses Alcohol use disorder Adjustment disorder with mixed disturbance of emotions and conduct F43.25 Bipolar 1 disorder, manic, mild F31.11
[2019-07-01 14:00] VITALS: BP 121/75; PULSE 95; RESP 20; TEMP 37.1
[2019-07-01] MEDS: citalopram 20 mg Tablet 40 MG PO (20:24)
[2019-07-01] MEDS: lithium carbonate 300 mg Capsule PO (20:24)
[2019-07-01] MEDS: trazodone 100 mg Tablet PO (20:24)
[2019-07-01 21:41] VITALS: BP 115/64; PULSE 80; RESP 20; TEMP 36.6; O2SAT 94
[2019-07-02] MEDS: clindamycin 150 mg Capsule 300 MG PO ×4 (00:37→17:17)
[2019-07-02 05:57] VITALS: BP 125/84; PULSE 85; RESP 17; TEMP 36.7; O2SAT 97
[2019-07-02] MEDS: multivitamin therapeutic Tablet 1 TAB PO (08:24)
[2019-07-02] MEDS: lithium carbonate 300 mg Capsule PO ×2 (08:24→17:16)
[2019-07-02] MEDS: thiamine 100 mg Tablet PO (08:24)
[2019-07-02] MEDS: trazodone 50 mg Tablet PO ×2 (08:24→14:13)
[2019-07-02] MEDS: folic acid 1 mg Tablet PO (08:24)
[2019-07-02] MEDS: citalopram 20 mg Tablet 40 MG PO (08:24)
[2019-07-02] MEDS: fluticasone nasal spray 16gm Btl 2 SPRAY NASAL ×2 (08:25→17:15)
[2019-07-02] MEDS: nicotine 2 mg Gum BUCCAL (09:03)
[2019-07-02] MEDS: nicotine 21 mg Patch 1 PATCH TRANSDERMA (11:39)
[2019-07-02 13:46] VITALS: BP 143/82; PULSE 91; RESP 18; TEMP 36.8; O2SAT 96
--- NOTE | 2019-07-02 17:12 | PM.NPN ---
Subjective NPU Subjective: Interval history: [place] presents today reporting that he is not really sure of his medications are effective. He is on a interesting cocktail of medications was reviewed discussed at length. Is on trazodone 50 mg by mouth 3 times a day for anxiety and he denies any clear sense that is effective. He is on Celexa 40 mg for depression and anxiety reports that used to work but doesn't feel like it works anymore. We reviewed the medications he's been on the past and identified the Prozac was not on medication with an adequate trial at any point in his history. We discussed the risks, benefits and alternatives of making some changes in his medication and he understood and agreed to proceed as is documented in his note. Mental Status Exam MSE Comments: This is a well-nourished, well-developed white male with limited dress, grooming and contact. No abnormal movements except for psychomotor retardation. Cooperative with exam in no acute distress. Speech was decreased rate and volume. Mood described as still depressed, affect congruent. Thought process organized. Thought content: Patient denied any suicidal or homicidal ideation, there were no delusions reportedly noted, he denied any auditory or visual hallucinations. Attention and concentration were intact and memory appear reliable and none were formally tested. He is alert and oriented ?3. Insight and judgment are limited but improving. Vitals/I&O/Wt Last Vital Signs Temp 98.2 F 07/02/19 13:46 Pulse 91 07/02/19 13:46 Resp 18 07/02/19 13:46 BP 143/82 07/02/19 13:46 Pulse Ox 96 07/02/19 13:46 Data NPU : 06/28/19 23:45 06/28/19 23:45 A&P Additional A&P Information This is a 43-year-old white male with a current diagnosis of bipolar disorder with significant alcohol use and other addiction history with current active issues with alcohol who presents reporting of willingness to make some changes to his medication as well as pursue outpatient services. 1. Continue current medications. Except: 2. Decrease Celexa to 20 mg by mouth every morning for 1 week then discontinue. 3. Start Prozac 20 mg by mouth every morning. 4. Discontinue trazodone 50 mg by mouth 3 times a day. 5. We discussed both naltrexone in by his interest in activities and will consider the utilization of these medications once his other medications are stabilized. 6. Encourage individual, group and milieu therapy. 7. Continue every 15 minute checks for safety. 8. Assist patient in referral to the highest level of sober living treatment to which she is willing to commit. Involuntary Hold Information 96 Hour Hold: 96 Hour Involuntary Admission: No Attestations NPU Medical Necessity Statement*: Inpatient hospitalization is medically necessary in the clinically appropriate intervention at this time. We will continue to monitor medications and change and titrate to effect. Likely length of stay 2-4 days. Coding Level of Care Code Acute Director Of Database Marketing for Camila Alvares
[2019-07-02] MEDS: fluoxetine 20 mg Capsule PO (17:16)
[2019-07-02 20:21] VITALS: BP 138/80; PULSE 93; RESP 19; TEMP 36.7; O2SAT 98
[2019-07-02] MEDS: trazodone 100 mg Tablet PO (20:50)
[2019-07-02] MEDS: ibuprofen 600 mg Tablet PO (21:44)
--- NOTE | 2019-07-02 21:45 | PC.NURSE ---
ibuprofen 600 mg po given for toothache.
[2019-07-03] MEDS: clindamycin 150 mg Capsule 300 MG PO ×3 (01:39→11:59)
[2019-07-03 06:00] VITALS: BP 131/89; PULSE 98; RESP 19; TEMP 36.4; O2SAT 98
[2019-07-03] MEDS: ibuprofen 600 mg Tablet PO (07:26)
[2019-07-03] MEDS: lithium carbonate 300 mg Capsule PO (08:24)
[2019-07-03] MEDS: thiamine 100 mg Tablet PO (08:24)
[2019-07-03] MEDS: fluticasone nasal spray 16gm Btl 2 SPRAY NASAL (08:24)
[2019-07-03] MEDS: fluoxetine 20 mg Capsule PO (08:24)
[2019-07-03] MEDS: multivitamin therapeutic Tablet 1 TAB PO (08:24)
[2019-07-03] MEDS: citalopram 20 mg Tablet PO (08:24)
[2019-07-03] MEDS: folic acid 1 mg Tablet PO (08:25)
--- NOTE | 2019-07-03 12:25 | PM.NDC ---
Diagnoses at Discharge Discharge Diagnosis (1) Alcohol use disorder: Status: Acute Problem details: -Has known history of alcohol abuse -Negative alcohol screen, reported last use was approximately 2 days prior to admission -Has prior history of severe alcohol withdrawal, DTs -was significantly hypertensive, tachycardic, diaphoretic, tremulous and very somnolent; BP has improved, mildly tachycardic -Continued close monitoring of vital signs -Currently able to protect his airway, should this change may require intubation -IV fluid hydration; decreased with improved oral intake -CIWA protocol, thiamine/MVI/folic acid daily -LFTs have normalized, start on librium -1:1 monitoring for safety -fall/seizure/aspiration precautions -if agitated/aggressive, may need soft restraints (2) Adjustment disorder with mixed disturbance of emotions and conduct: Status: Acute (3) Bipolar 1 disorder, manic, mild: Status: Acute Reason for Visit Reason for Visit: Reason For Visit: SI Brief History: HPI NPU History of Present Illness Ludin Gordon is a 43-year-old man who presents today with a blood alcohol level of 287 requesting detoxification services. He says that he has been drinking alcohol continuously for the past month. He cannot give an estimate on how much alcohol he drinks per day. He has a history of DTs seizure while going through alcohol withdrawal. Otherwise he denies symptoms of depression. He says he would like to get back on antidepressant medication. However he denies suicidal or homicidal ideation. He denies presence of auditory or visual hallucinations. He denies irritability or anhedonia. He said that he had taken Celexa 40 mg daily for several years. He has not been on it for 2 months. Says that it did seem to stop working and would like to try something else. It is noted that he has been globally noncompliant with outpatient referrals. When asked about primary care physician, he cannot provide a name. So his statements of being compliant with medication for several years is in doubt. Hospital Course Hospital Course [place] presented to the emergency room in a similar fashion to previous hospitalizations. He was admitted to the neuro psych unit and slowly acclimated to the individual, group and milieu therapies provided. His medications were adjusted and he was stabilized on Prozac and lithium which was to be monitored closely through blood levels after discharge. Routine laboratory studies were obtained which were within normal limits except for a few outliers. Additionally a general medical evaluation was performed which was within normal limits in general and revealed no new acute processes. Discharge Summary At the time of discharge all lethality was denied. Mood and anxiety were reported as improved and there was no psychosis reported or noted. Patient reported a plan to follow-up with outpatient services per referrals. Maximum benefit from inpatient hospitalization was achieved and the patient was discharged. Involuntary Hold Information 96 Hour Hold: 96 Hour Involuntary Admission: No Mental Status Exam MSE Comments: This is a well-nourished, well-developed white male with limited dress, grooming and contact. No abnormal movements except for psychomotor retardation. Cooperative with exam in no acute distress. Speech was normal rate and volume. Mood described as better, affect congruent. Thought process organized. Thought content: Patient denied any suicidal or homicidal ideation, there were no delusions reportedly noted, he denied any auditory or visual hallucinations. Attention and concentration were intact and memory appear reliable and none were formally tested. He is alert and oriented ?3. Insight and judgment are improving. Discharge Data Data Completed and Pending: Pending at discharge Category Date Time Status [place] Routine Lab 07/06/19 09:00 Ordered Vitals: Last Vital Signs Temp 97.6 F 07/03/19 06:00 Pulse 98 07/03/19 06:00 Resp 19 H 07/03/19 06:00 BP 131/89 07/03/19 06:00 Pulse Ox 98 07/03/19 06:00 Discharge Plan Discharge Patient Disposition: Home, Self-Care Condition: Stable Prescriptions: New Thera 400 mcg Tablet 1 tab PO DAILY 30 Days Qty: 30 RF: 1 Continued folic acid 1 mg Tablet 1 mg PO DAILY 30 Days Qty: 30 RF: 1 thiamine mononitrate (vit B1) [Vitamin B-1 (mononitrate)] 100 mg Tablet 100 mg PO DAILY 30 Days Qty: 30 RF: 1 ibuprofen 600 mg tablet 600 mg PO Q8H Qty: 30 RF: 0 Discontinued trazodone 50 mg Tablet 50 mg PO TID Qty: 90 RF: 0 trazodone 100 mg Tablet 100 mg PO BEDTIME Qty: 30 RF: 0 citalopram [Celexa] 20 mg tablet 40 mg PO BEDTIME RF: 0 clindamycin HCl 150 mg capsule 300 mg PO Q8H 7 Days Qty: 42 RF: 0 No Action trazodone 100 mg Tablet 100 mg PO BEDTIME 30 Days Qty: 30 RF: 1 lithium carbonate 300 mg Capsule 300 mg PO BEDTIME 30 Days Qty: 30 RF: 1 lithium carbonate 300 mg Capsule 300 mg PO BID 30 Days Qty: 60 RF: 1 propranolol 20 mg Tablet 20 mg PO TID PRN (Reason: Anxiety) 30 Days Qty: 30 RF: 1 fluoxetine 20 mg Capsule 20 mg PO DAILY 30 Days Qty: 30 RF: 1 Discharge Orders: Discharge Order (Routine); Ordered 07/03/19 Ordered By: Shola Em Discharge Diet: Regular Discharge Activity: Resume usual activity Activity Restrictions/Additional Instructions: Follow-up with a provider of choice within 3-5 days. [facility] ([facility]) [address] [facility] [address] [place], [place] [address] Go during the walk-in hours of 7:30 a.m. and 2:30 p.m. and request mental health services. any day Saturday through Saturday. Get your lithium level July 09 during the walk-in hours at Urgent Care if [facility] cannot assist yet. Address: [address] [place] [address],[address], [place] [address] Hours 10 a.m. - 7 p.m. ~ 7 days a week (except Follow-up at [facility] ([facility]) for substance abuse treatment. [phone] [address] Intake for outpatient rehab is scheduled for July 08 at 2:00 p.m. [facility] meeting schedule: Saturday 7 p.m. [address] [place], [place] Saturday 7 p.m. [address] [place], [place] 7 p.m. [address] [place], [place] (behind [facility] next to [employer] [facility] [employer]) Saturday 7 p.m. [address] [place], [place] Saturday noon [address] [place], [place] Discharge Date/Time: 07/03/19 12:50 Discharge Attestations NPU Time Spent in Discharge Care*: less than 30 min Specific Discharge Activities: Specific discharge activities: educating patient, discussing with continuous pillowcase cutter/social workers/dc planners, documenting/other paperwork and evaluating patient/reviewing data Coding Level of Care Code Acute Resident Service Coordinator for g Fwd Diagnoses Alcohol use disorder Adjustment disorder with mixed disturbance of emotions and conduct F43.25 Bipolar 1 disorder, manic, mild F31.11
[2019-07-03 12:33] VITALS: BP 131/89; PULSE 98; RESP 19; TEMP 36.4; O2SAT 98
== END 2019-07-03 12:50 | disposition home or self-care (01) | DRG 882 ==
LOC: ER 23:31 → NP 06-29 06:22
PROVIDERS: Admitting Provider Psychiatry & Neurology Psychiatry; Emergency Provider Emergency Medicine
DX: F43.25 Adjustment disorder with mixed disturbance of emotions and conduct (principal); F31.9 Bipolar disorder, unspecified; F10.10 Alcohol abuse, uncomplicated; Y90.8 Blood alcohol level of 240 mg/100 ml or more; F17.210 Nicotine dependence, cigarettes, uncomplicated
CPT/HCPCS: 12345; 36415; 80053; 80307; 81003; 84443; 85025; 99282

== ENCOUNTER 2019-07-07 22:05 | Emergency (ER) | payer SELFPAY ==
[2019-07-07 22:21] VITALS: BP 143/109; PULSE 98; RESP 18; TEMP 36.8; O2SAT 95; BMI 22.9
--- NOTE | 2019-07-07 22:31 | XR_ITS ---
WS: [id number] PROCEDURE: XR chest 2V* [id number] CLINICAL INFORMATION: cough COMPARISON: February 09, 2018 FINDINGS: Heart: Normal cardiac silhouette. Lungs: Chronic emphysematous changes. No acute pulmonary infiltrates. Bones: Healed right lateral rib fracture. XR/XR chest 2V* [id number] IMPRESSION: No acute chest findings.
[2019-07-07 22:42] VITALS: BP 148/90; PULSE 98; RESP 18; TEMP 36.7; O2SAT 95
--- NOTE | 2019-07-07 22:55 | W.ED.GENADLT ---
HPI - General Adult General: Chief complaint: General Medical Stated complaint: cough/sore throat Time Seen by Provider: 07/07/19 22:30 History of Present Illness: HPI narrative: Patient is a 43-year-old male who comes to the ED with cough and nasal congestion. He says the cough congestion started yesterday. Says his cough is productive and the sputum is clear. He also has a sore throat feels weak and has had the chills. He also complains of having some wheezing when he breathes. Patient did say he is a smoker, about 1 pack per day. He is currently been taking clindamycin for an oral infection and he started taking that today. Denies any chest pain, abdominal pain, nausea, vomiting, bladder or bowel symptoms. Review of Systems General: Reports: 10 or more systems reviewed and unremarkable except in HPI and below PFSH ED PFSH: Statuses (acute, chronic, etc) shown below reflect problem list status as previously entered and may not be historically accurate Social History Smoking and tobacco status: current every day smoker Current gender identity: Male Physical Exam Const: COMMON NORMALS: oriented x3 HENMT: COMMON NORMALS: normocephalic and moist oral mucous membranes HEAD & SCALP: normocephalic FACE & SINUS: sinus tenderness maxillary (Left side) MOUTH: oral and palatal mucosa normal THROAT: uvula midline and posterior oropharynx abnormal cobblestoning and erythema Neck/C-Spine: COMMON NORMALS: supple GENERAL: Yes normal visual inspection Lymph: LYMPHATIC: lymphadenopathy (Mild on right and left anterior cervical) Resp: COMMON NORMALS: normal respiratory effort, no retractions and no use of accessory muscles AUSCULTATION: crackles (faint crackles at base and mid left lung posterior ) Laterality: left, no wheezes and diminished lung sounds (bases) bilateral Cardio: COMMON NORMALS: regular rate, regular rhythm, S1 normal heart sound, S2 normal heart sound, no gallops, no clicks, no murmurs and peripheral pulses 2+ throughout RATE: regular rate RHYTHM: regular rhythm HEART SOUNDS: S1 normal and S2 normal PERIPHERAL PULSES: pulses 2+ throughout GI: COMMON NORMALS: normal to inspection, nondistended, normoactive bowel sounds, soft to palpation, non-tender and no masses PALPATION: Yes soft : COMMON NORMALS: Yes no CVA tenderness BLADDER/KIDNEY EXAM: Yes no CVA tenderness Back/Pelvis: COMMON NORMALS: no CVA tenderness Extremity: COMMON NORMALS: normal to inspection Neuro: COMMON NORMALS: oriented x3 and moves all extremities Skin: COMMON NORMALS: no rashes or lesions noted GENERAL SKIN EXAM: no rashes or lesions noted Course Vital Signs: Vital signs: Vital Signs Temperature 98.5 F 07/08/19 00:54 Pulse Rate 74 07/08/19 00:54 Respiratory Rate 16 07/08/19 00:54 Blood Pressure 142/81 07/08/19 00:54 Pulse Oximetry 97 07/08/19 00:54 MDM - General Adult Lab Data: Attestation: I reviewed the patient's lab results. Labs: Lab Results 07/07/19 07/07/19 Range/Units 22:45 22:45 Influenza Type A A g Negative (Negative) POC Influenza B Ag Negative (Negative) Group A Strep Rapi d Negative (Negative) Imaging Data^: CXR: Attestation: I personally reviewed and interpreted this imaging study as follows: My impression: Possible acute bronchitis and/or possible pneumonia developing in left middle lung. Pending final radiology report. Discharge Plan Discharge Patient Disposition: Home, Self-Care Clinical Impression: Acute bronchitis Qualifiers: Bronchitis organism: unspecified organism Qualified Code(s): J20.9 - Acute bronchitis, unspecified Condition: Stable Prescriptions: New Tessalon Perles 100 mg capsule 100 mg PO TID PRN (Reason: cough) Qty: 20 RF: 0 prednisone 20 mg tablet 20 mg PO TID 5 Days Qty: 15 RF: 0 azithromycin 250 mg tablet See Rx Instructions .ROUTE .COMPLEX Qty: 6 RF: 0 No Action citalopram 20 mg Tablet 20 mg PO DAILY 6 Days Qty: 6 RF: 0 lithium carbonate 300 mg Capsule 300 mg PO BID 30 Days Qty: 60 RF: 1 fluoxetine 20 mg Capsule 20 mg PO DAILY 30 Days Qty: 30 RF: 1 fluticasone propionate 50 mcg/actuation [place],Suspension 2 spray nasal BID 30 Days Qty: 50 RF: 0 Thera 400 mcg Tablet 1 tab PO DAILY 30 Days Qty: 30 RF: 1 clindamycin HCl 150 mg capsule 300 mg PO Q8H 3 Days Qty: 18 RF: 0 trazodone 100 mg Tablet 100 mg PO BEDTIME 30 Days Qty: 30 RF: 1 folic acid 1 mg Tablet 1 mg PO DAILY 30 Days Qty: 30 RF: 1 thiamine mononitrate (vit B1) [Vitamin B-1 (mononitrate)] 100 mg Tablet 100 mg PO DAILY 30 Days Qty: 30 RF: 1 ibuprofen 600 mg tablet 600 mg PO Q8H Qty: 30 RF: 0 Discharge Orders: Discharge Order (Routine); Ordered 07/08/19 Ordered By: Rudolph Hanson Referrals: Isabel Urbina MD [Primary Care Provider] - Discharge Diet: Regular Discharge Activity: Resume usual activity Patient Instructions: Acute Bronchitis (ED) Activity Restrictions/Additional Instructions: Follow-up with primary care provider in 7 days for reevaluation. Continue taking antibiotic and also take Prescribed course of prednisone. I'm also giving you a Z-Kirit that she can take after completing Clarithromycin course if upper respiratory symptoms are not better. Take Tylenol or ibuprofen for fever control. I'm also sending her home with a prescription for Tessalon Perles which is a cough suppressant, so take medication as prescribed. Discharge Date/Time: 07/08/19 00:55 Coding Level of Care Code ED Learning Support Assistant for Camila Alvares
[2019-07-07 23:25] LABS: Rapid Strep A Test Negative (Negative)
[2019-07-07 23:33] LABS: Influenza A by IFA Negative (Negative); Influenza B by IFA Negative (Negative)
[2019-07-08 00:20] VITALS: PULSE 96; RESP 18; O2SAT 93
[2019-07-08] MEDS: ipratropium-albuterol 3 mL Neb INHALATION (00:20)
[2019-07-08 00:25] VITALS: PULSE 99; O2SAT 96
[2019-07-08 00:54] VITALS: BP 142/81; PULSE 74; RESP 16; TEMP 36.9; O2SAT 97
== END 2019-07-08 00:55 | disposition home or self-care (01) ==
PROVIDERS: Emergency Provider Physician Assistant; PCP Family Medicine
DX: J20.9 Acute bronchitis, unspecified (principal); F17.210 Nicotine dependence, cigarettes, uncomplicated
CPT/HCPCS: 71046; 87081; 87804; 87880; 94640; 96372; 99282; 99283; J2930

== ENCOUNTER 2019-07-13 11:45 | Inpatient (IN) | payer SELFPAY ==
[2019-07-13] VITALS (33 sets, daily range): BP systolic 124–159; BP diastolic 69–111; PULSE 110–159; RESP 12–54; TEMP 36.8–37.1; O2SAT 92–98; BMI 22.9
--- NOTE | 2019-07-13 11:54 | ED_ITS ---
Entered by Padmini Delarosa, acting as scribe for Priscilla Obando HPI - Anxiety General: Chief Complaint: Anxiety Stated Complaint: ANXIOUS Time Seen by Provider: 07/13/19 11:52 Source: patient Mode of arrival: EMS Limitations: no limitations History of Present Illness: HPI narrative: 43 yo Male presents to ED with complaint of anxiety and headache. Pt states that his headache started first this morning. Pt's states that the patient woke up last night complaining of headache. Pt states that he has gotten anxious since then. Pt has not had any alcohol for a day or two. Pt's states that the patient normally drinks about 2 pints of liquor a day. Pt states that he ran out of alcohol but he would like to quit drinking but it is hard for him. Pt states that he has had shaking in the past from trying to quit drinking. Pt's states that the patient had a jerking seizure one time before. MD complaint: anxiety Onset (ago): hour(s) Symptoms: other (headache) Quality: constant Place: home History of similar episodes: Yes Provoking factors: other (lack of alcohol consumption) Relieving factors: nothing Exacerbating factors: nothing Associated symptoms: Reports headache(s); Deny chest pain, fever(s), nausea, short of breath or vomiting Review of Systems General: Reports: other (negative unless marked) Const: Denies: fever Eyes: Denies: change in vision or blurry vision ENMT: Denies: throat pain, painful swallowing, hoarseness, ear pain, ear discharge, Change in hearing or nasal discharge Card: Denies: chest pain Resp: Denies: shortness of breath, productive cough, non-productive cough, wheezing, coughing up blood or chest congestion GI: Denies: abdominal pain, nausea, vomiting, vomiting blood, coffee grounds in vomit, diarrhea, constipation, cramping, blood in stool or black tarry stool : Denies: flank pain, difficulty urinating, painful urination, urinary frequency, urinary urgency, decreased urine ouput, urinary incontinence or blood in urine Musc: Denies: neck pain, back pain, extremity pain, extremity swelling, joint pain, joint swelling, joint warmth or joint stiffness Skin/Breast: Denies: rash, skin tenderness or yellow skin Neuro: Reports: headache Psych: Reports: anxiety Endo: Denies: excessive thirst, tired all the time, cold intolerance, excessive sweating, flushing or hot flashes Byron/Lymph: Denies: easy bruising, easy bleeding, petechiae or enlarged lymph nodes All/Imm: Denies: hives, throat swelling, tongue swelling, facial swelling or acute wheezing PFSH ED PFSH: Statuses (acute, chronic, etc) shown below reflect problem list status as previously entered and may not be historically accurate Medical History (Updated 07/13/19 @ 16:11 by Micki Prado MD) Adjustment disorder with mixed disturbance of emotions and conduct (Acute) Alcohol use disorder (Acute) Bipolar 1 disorder, manic, mild (Acute) Depressive disorder, not elsewhere classified (Acute) Methamphetamine abuse (Acute) Surgical History (Updated 07/13/19 @ 16:12 by Micki Prado MD) H/O hernia repair (Acute) History of appendectomy (Acute) Family History (Updated 07/13/19 @ 16:13 by Micki Prado MD) Other Alcoholism /alcohol abuse Social History (Updated 07/13/19 @ 16:13 by Micki Prado MD) Smoking and tobacco status: current every day smoker Alcohol intake: current Substance/Drug Use: current Substance/Drug use type: Marijuana and Amphetamines Current gender identity: Male Physical Exam Const: COMMON NORMALS: no apparent distress, oriented x3, no limitations, healthy appearing and well nourished EXAM LIMITATIONS: no altered mental status GENERAL APPEARANCE: cooperative, well kempt and well developed ORIENTATION/CONSCIOUSNESS: Yes awake HENMT: COMMON NORMALS: normocephalic, head/scalp atraumatic, hearing grossly normal bilaterally, external ears normal, EAC's normal, external nose normal and moist oral mucous membranes HEAD & SCALP: normal to inspection, normocephalic and atraumatic FACE & SINUS: normal facial exam and face symmetric NOSE: external nose normal and nares normal EXTERNAL EAR: Yes external ears normal EXTERNAL AUDITORY CANAL: EAC's normal MOUTH: oral and palatal mucosa normal and tongue normal Eye: COMMON NORMALS: PERRL, EOMs intact bilaterally, conjunctivae normal and no scleral icterus GENERAL EYE: normal appearance of both eyes and normal light reflex CONJUNCTIVA: Yes conjunctivae normal SCLERA: sclerae normal CORNEA: Yes corneas normal PUPIL: Yes PERRL DIRECT OPHTHALMOSCOPY: Yes normal light reflex Neck/C-Spine: COMMON NORMALS: full ROM, no lymphadenopathy, supple, no meningeal signs and no JVD GENERAL: Yes normal visual inspection and Yes trachea midline CERVICAL SPINE: Yes cervical ROM normal Chest: COMMONS NORMALS: inspection of chest normal and palpation of chest normal Resp: COMMON NORMALS: normal respiratory effort, no retractions, no use of accessory muscles and clear to auscultation bilaterally EFFORT & INSPECTION: Yes able to speak in complete sentences AUSCULTATION: clear to auscultation bilaterally Cardio: COMMON NORMALS: no JVD, regular rate, regular rhythm, S1 normal heart sound, S2 normal heart sound, no gallops, no clicks, no murmurs and no rub JUGULAR VENOUS DISTENTION: no JVD RATE: regular rate RHYTHM: regular rhythm HEART SOUNDS: S1 normal and S2 normal GI: COMMON NORMALS: soft to palpation, non-tender, no hepatosplenomegaly and no masses INSPECTION: Yes normal to inspection PALPATION: Yes soft and Yes no hepatosplenomegaly : COMMON NORMALS: Yes no CVA tenderness BLADDER/KIDNEY EXAM: Yes no CVA tenderness Back/Pelvis: COMMON NORMALS: no CVA tenderness, thoracic and lumbar spine normal to inspection, no thoracic nor lumbar tenderness and thoraco-lumbar ROM normal Extremity: COMMON NORMALS: normal to inspection, full ROM, normal capillary refill, no joint enlargement, no clubbing, cyanosis or edema and no calf tenderness Neuro: COMMON NORMALS: oriented x3, CN's II-XII intact bilaterally, moves all extremities, no focal motor deficits and no sensory deficits noted MENINGEAL SIGNS: Yes no meningeal signs Psych: COMMON NORMALS: mental status grossly normal, thought process normal, cooperative, affect normal, speech normal and activity/motor behavior normal APPEARANCE: Yes well kempt SPEECH: Yes normal speech THOUGHT PROCESS: normal thought process Skin: COMMON NORMALS: no rashes or lesions noted, skin turgor normal, no jaundice, no petechiae and no mottling GENERAL SKIN EXAM: no rashes or lesions noted and turgor normal Course Vital Signs: Vital signs: Vital Signs Temperature 98.7 F 07/13/19 11:46 Pulse Rate 110 H 07/13/19 17:56 Respiratory Rate 20 H 07/13/19 17:56 Blood Pressure 124/69 07/13/19 17:56 Pulse Oximetry 94 07/13/19 17:56 MDM - Anxiety MDM Narrative: Medical decision making narrative: The patient arrives what appears to be alcohol withdrawal and delirium tremens. Is questionable whether he is already had a seizure at home. He states he gets hallucinations and has seizures when he does withdrawal. I have reviewed the case in full with Dr. Kenia Scott and she is agreeable to admission to the ICU. Imaging Data^: CXR: Radiologist's impression: [place] [address] XRay Report Signed Patient: Franklin Gordon #: [id number] : 1975Acct#:[id number] Age/Sex: 43 / MADM Date: 07/13/19 Loc: ERRoom/Bed: Attending Dr: Ordering Provider/Ordering MD: Priscilla Obando DO Date of Service: 07/13/19 Procedure(s): XR chest 1V portable [id number] Accession Number(s): [id number] Report Number: [id number] WS: [id number] PORTABLE CHEST HISTORY: cough COMPARISON: 07/07/2019 Lungs are clear and well expanded. No pleural effusion or pneumothorax. Cardiac size: Normal. Mediastinum/Aorta: Normal mediastinum. No osseous abnormality seen. XR/XR chest 1V portable [id number] IMPRESSION: Unremarkable portable chest. Dictated By:Jenny Abraham DO Signed By:Jenny Abraham DOSigned Date/Time:07/13/19 1236 DD/ 1235 CT Head: Radiologist's impression: [address] [place] [address] CT Scan Report Signed Patient: Franklin Gordon #: [id number] : 1975Acct#:[id number] Age/Sex: 43 / MADM Date: 07/13/19 Loc: ERRoom/Bed: Attending Dr: Ordering Provider/Ordering MD: Priscilla Obando DO Date of Service: 07/13/19 Procedure(s): CT head wo con* [id number] Accession Number(s): [id number] Report Number: [id number] WS: [id number] CT HEAD TECHNIQUE: Noncontrast CT of the head obtained from the skullbase to the vertex. CLINICAL INFORMATION: UMANA/AMS COMPARISON: None. DLP: 656.[address] scans at [facility] use at least one of these dose opti mization techniques: automated exposure control; mA and/or kV adjustment per patient size (includes targeted exams where dose is matched to clinical indication); or iterative reconstruction. FINDINGS: Some images degraded by motion. No evidence of intracranial hemorrhage or mass effect. Ventricular system and basal cisterns are patent. No extra-axial fluid collections. No evidence of mass or mass effect. Normal hale-white differentiation. Mild mucosal thickening in the paranasal sinuses. Attempted notification Priscilla Obando at 07/13/2019 1:[address]/CT head wo con* [id number] IMPRESSION: 1. No evidence of intracranial hemorrhage or mass effect. 2. Normal hale-white differentiation. 3. Some images degraded by motion. Dictated By:Erasmo Miranda MD Signed By:Erasmo Miranda MDSigned Date/Time:07/13/19 1324 DD/ 1319 Lab Data: Labs: Lab Results 07/13/19 07/13/19 07/13/19 Range/Units 12:16 12:16 12:16 WBC 13.4 H (4.0-10.0) 10^3/ uL RBC 4.34 (4.1-5.3) 10^6/u L Hgb 15.7 (11.7-16.6) g/dL Hct 45.2 (42.0-52.0) % MCV 104.1 H (80-94) fL MCH 36.2 H (28.0-34.0) pg MCHC 34.7 (30.0-36.0) g/dL RDW 12.2 (12.1-15.1) % Plt Count 378 (130-400) 10^3/c mm MPV 8.8 (7.4-10.4) fL Neut % (Auto) 82.1 % Lymph % (Auto) 9.1 % Glascock % (Auto) 8.2 % Eos % (Auto) 0.0 % Baso % (Auto) 0.2 % Neut # (Auto) 11.0 H (1.8-7.7) 10^3/u L Lymph # (Auto) 1.2 (0.8-4.8) 10^3/u L Glascock # (Auto) 1.1 H (0.2-0.9) 10^3/u L Eos # (Auto) 0.0 (0.0-0.8) 10^3/u L Baso # (Auto) 0.0 (0.0-0.1) 10^3/u L Nucleated RBC % (a uto) 0 % Nucleated RBCs # 0.0 /100WBC PT 13.50 H (10.5-13.3) SECO NDS INR 1.00 (0.8-1.2) APTT 31.9 (23.9-36.7) SECO NDS Specimen Type Sample Site ABG pH (7.35-7.45) ABG pCO2 (35-45) mmHg ABG pO2 (80.0-100.0) mmH g ABG HCO3 (22-26) mmol/L ABG Base Excess (-2.0-2.0) mmol/ L Martin Test Hematocrit (42-52) % O2 Delivery Device FiO2 % Charting Clerk ID Sodium 136 (136-145) mmol/L Potassium 3.5 (3.5-5.1) mmol/L Chloride 96 L (98-107) mmol/L Carbon Dioxide 23 (22-29) mmol/L Anion Gap 20.5 H (5-19) BUN 11 (6-20) mg/dL Creatinine 0.9 (0.7-1.2) mg/dL GFR Calculation 92.5 (90-130) mL/min Glucose 92 (65-115) mg/dL Calcium 9.7 (8.5-10.5) mg/dL Magnesium 2.3 (1.7-2.3) mg/dL Total Bilirubin 0.9 (0.15-1.2) mg/dL AST 78 H (0-40) U/L ALT 66 H (0-41) U/L Alkaline Phosphata se 109 (40-130) IU/L Creatine Kinase 2462 H* (39-308) U/L Troponin T Baselin e (0-15) ng/mL Total Protein 7.9 (6.6-8.7) g/dL Albumin 4.5 (3.5-5.2) g/dL Globulin 3.4 (1.3-4.6) g/dL Ethyl Alcohol < 10 (0-10) mg/dL Serum Ketones (Negative) 07/13/19 07/13/19 07/13/19 Range/Units 12:16 12:16 12:22 WBC (4.0-10.0) 10^3/ uL RBC (4.1-5.3) 10^6/u L Hgb (11.7-16.6) g/dL Hct (42.0-52.0) % MCV (80-94) fL MCH (28.0-34.0) pg MCHC (30.0-36.0) g/dL RDW (12.1-15.1) % Plt Count (130-400) 10^3/c mm MPV (7.4-10.4) fL Neut % (Auto) % Lymph % (Auto) % Glascock % (Auto) % Eos % (Auto) % Baso % (Auto) % Neut # (Auto) (1.8-7.7) 10^3/u L Lymph # (Auto) (0.8-4.8) 10^3/u L Glascock # (Auto) (0.2-0.9) 10^3/u L Eos # (Auto) (0.0-0.8) 10^3/u L Baso # (Auto) (0.0-0.1) 10^3/u L Nucleated RBC % (a uto) % Nucleated RBCs # /100WBC PT (10.5-13.3) SECO NDS INR (0.8-1.2) APTT (23.9-36.7) SECO NDS Specimen Type Arterial Sample Site Brachial, right ABG pH 7.50 H (7.35-7.45) ABG pCO2 30.5 L (35-45) mmHg ABG pO2 89.7 (80.0-100.0) mmH g ABG HCO3 23.8 (22-26) mmol/L ABG Base Excess 1.6 (-2.0-2.0) mmol/ L Martin Test Pos Hematocrit 50.1 (42-52) % O2 Delivery Device Ra FiO2 21.0 % Charting Clerk ID gd Sodium (136-145) mmol/L Potassium (3.5-5.1) mmol/L Chloride (98-107) mmol/L Carbon Dioxide (22-29) mmol/L Anion Gap (5-19) BUN (6-20) mg/dL Creatinine (0.7-1.2) mg/dL GFR Calculation (90-130) mL/min Glucose (65-115) mg/dL Calcium (8.5-10.5) mg/dL Magnesium (1.7-2.3) mg/dL Total Bilirubin (0.15-1.2) mg/dL AST (0-40) U/L ALT (0-41) U/L Alkaline Phosphata se (40-130) IU/L Creatine Kinase (39-308) U/L Troponin T Baselin e 55 H (0-15) ng/mL Total Protein (6.6-8.7) g/dL Albumin (3.5-5.2) g/dL Globulin (1.3-4.6) g/dL Ethyl Alcohol (0-10) mg/dL Serum Ketones Negative (Negative) Discharge Plan Discharge Patient Disposition: Admitted As Inpatient Admit Provider: Micki Prado Discharge Date/Time: 07/13/19 18:10 Coding Level of Care Code ED Software Clerk for Chg Fwd Exam Problem Focused The documentation recorded by the [place] frankel Carmen, accurately reflects the service I personally performed and the decisions made by Gisella baldwin Eli N Jul 13, 2019 11:45
--- NOTE | 2019-07-13 11:57 | CT_ITS ---
WS: [id number] CT HEAD TECHNIQUE: Noncontrast CT of the head obtained from the skullbase to the vertex. CLINICAL INFORMATION: UMANA/AMS COMPARISON: None. DLP: 656.[address] scans at [facility] use at least one of these dose optimization techniques: automat ed exposure control; mA and/or kV adjustment per patient size (includes targeted exams where dose is matched to clinical indication); or iterative reconstruction. FINDINGS: Some images degraded by motion. No evidence of intracranial hemorrhage or mass effect. Ventricular system and basal cisterns are patterson nt. No extra-axial fluid collections. No evidence of mass or mass effect. Normal hale-white different iation. Mild mucosal thickening in the paranasal sinuses. Attempted notification Priscilla Obando at 07/13/2019 1:[address]/CT head wo con* [id number] IMPRESSION: 1. No evidence of intracranial hemorrhage or mass effect. 2. Normal hale-white differentiation. 3. Some images degraded by motion.
--- NOTE | 2019-07-13 11:58 | XR_ITS ---
WS: [id number] PORTABLE CHEST HISTORY: cough COMPARISON: 07/07/2019 Lungs are clear and well expanded. No pleural effusion or pneumothorax. Cardiac size: Normal. Mediastinum/Aorta: Normal mediastinum. No osseous abnormality seen. XR/XR chest 1V portable [id number] IMPRESSION: Unremarkable portable chest.
[2019-07-13 12:23] LABS: Basophils % 0.2 %; Hematocrit 45.2 % (42.0-52.0); Hemoglobin 15.7 g/dL (11.7-16.6); Lymphocytes # 1.2 10^3/uL (0.8-4.8); Lymphocytes % 9.1 %; Mean Corpuscular HGB Conc 34.7 g/dL (30.0-36.0); Mean Corpuscular Hemoglobin 36.2 pg (28.0-34.0); Mean Corpuscular Volume 104.1 fL (80-94); Mean Platelet Volume 8.8 fL (7.4-10.4); Monocytes # 1.1 10^3/uL (0.2-0.9); Monocytes % 8.2 %; Neutrophils % 82.1 %; Nucleated Red Blood Cells % 0 %; Platelet Count 378 10^3/cmm (130-400); Red Blood Count 4.34 10^6/uL (4.1-5.3); Red Cell Distribution Width 12.2 % (12.1-15.1); White Blood Count 13.4 10^3/uL (4.0-10.0)
[2019-07-13 12:32] LABS: Partial Thromboplastin Time 31.9 SECONDS (23.9-36.7)
[2019-07-13 12:39] LABS: ABG PCO2 30.5 mmHg (35-45); Arterial Blood Gas Hematocrit 50.1 % (42-52); Base Excess ABG 1.6 mmol/L (-2.0-2.0); Blood Gas Allen Test Pos; Blood Gas Sample Site Brachial, right; Blood Gas Sample Type Arterial; HCO3 ABG 23.8 mmol/L (22-26); PO2 ABG 89.7 mmHg (80.0-100.0)
[2019-07-13] MEDS: ondansetron 2 mg/ML SDV 2 mL 4 MG IVP (12:40)
[2019-07-13] MEDS: sodium chloride 0.9% 1,000 ML 999 ML IV (12:40)
[2019-07-13] MEDS: LORazepam 2 mg/mL INJ 1 mL IVP ×4 (12:40→21:15)
[2019-07-13 12:42] LABS: Alanine Aminotransferase 66 U/L (0-41); Albumin Level 4.5 g/dL (3.5-5.2); Alkaline Phosphatase 109 IU/L (40-130); Anion Gap 20.5 (5-19); Aspartate Amino Transferase 78 U/L (0-40); Blood Urea Nitrogen 11 mg/dL (6-20); Calcium 9.7 mg/dL (8.5-10.5); Carbon Dioxide 23 mmol/L (22-29); Chloride 96 mmol/L (98-107); Globulin 3.4 g/dL (1.3-4.6); Glomerular Filtration Rate 92.5 mL/min (90-130); Glucose 92 mg/dL (65-115); Magnesium 2.3 mg/dL (1.7-2.3); Potassium 3.5 mmol/L (3.5-5.1); Sodium 136 mmol/L (136-145); Total Bilirubin 0.9 mg/dL (0.15-1.2); Total Protein 7.9 g/dL (6.6-8.7); Troponin(5th) Baseline 55 ng/mL (0-15)
[2019-07-13 12:43] LABS: Alcohol Level < 10 mg/dL (0-10)
[2019-07-13 12:48] LABS: Ketone (Acetest) Serum Negative (Negative)
[2019-07-13 13:09] LABS: Creatine Phosphokinase 2462 U/L (39-308)
--- NOTE | 2019-07-13 13:59 | ECG_ITS ---
Measurements Intervals [place] Rate: 126 P: 56 MI: 145 QRS: 52 QRSD: 81 T: 77 QT: 313 QTc: 453 SINUS TACHYCARDIA ABNORMAL RHYTHM ECG Compared to ECG 02/19/2018 23:54:57 No significant changes Electronically Signed On 07-13-2019 20:09:25 WOOD CRAFTSMAN by Jaquan Lee M.D. [id number]
--- NOTE | 2019-07-13 14:41 | P.HP_ITS ---
Providers/Chief Complaint Admitting Physician: Micki Prado MD Primary Care Provider: Isabel Urbina MD Chief Complaint: ANXIOUS History of Present Illness Israel Gordon is a 43 year old male with PMHx of EtOH abuse, Bipolar disorder, Depression, Methamphetamine abuse, THC abuse; presents via ambulance for evaluation of suspected alcohol withdrawal. Patient is extremely somnolent d uring my evaluation and female at bedside who accompanied him is unable to provide much history. Collateral information obtained from review of medical record as well as ED report. It seems that patient drinks hard liquor, approximately 2 pints per day, last use was approximately 2 days ago. He has a prior history of severe alcohol withdrawal including DTs. Has been admitted multiple times at this facility typically in the NPU for depression and alcohol abuse. He received 2 mg of Ativan in route to the hospital and so far has received 4 mg of Ativan here in the ER. He remains quite diaphoretic, somnolent, tremulous. Minimally arousable to tactile stimulation. He is quite hypertensive, tachycardic. He has received a 1 L normal saline bolus. CBC shows mild leukocytosis with a white count of 13.4, normal chemistry, CPK of 2462, mildly elevated LFTs, negative alcohol screen, urine drug screen is positive for methamphetamines and THC. He is currently requiring 1:1 monitoring. Due to continued risk of severe alcohol withdrawal, he will be admitted to ICU for continued management. Review of Systems General: Reports: ROS unobtainable due to mental status Medications/Allergies Allergies Allergy/AdvReac Type Severity Reaction Status Date / Time No Known Allergies Allergy Verified 06/23/19 21:42 PFSH Acute PFSH: Statuses (acute, chronic, etc) shown below reflect problem list status as previously entered and may not be historically accurate Medical History (Updated 07/13/19 @ 16:11 by Micki Prado MD) Adjustment disorder with mixed disturbance of emotions and conduct (Acute) Alcohol use disorder (Acute) Bipolar 1 disorder, manic, mild (Acute) Depressive disorder, not elsewhere classified (Acute) Methamphetamine abuse (Acute) Surgical History (Updated 07/13/19 @ 16:12 by Micki Prado MD) H/O hernia repair (Acute) History of appendectomy (Acute) Family History (Updated 07/13/19 @ 16:13 by Micki Prado MD) Other Alcoholism /alcohol abuse Social History (Updated 07/13/19 @ 16:13 by Micki Prado MD) Smoking and tobacco status: current every day smoker Alcohol intake: current Substance/Drug Use: current Substance/Drug use type: Marijuana and Amphetamines Current gender identity: Male Vitals/I&O/Wt Last Vital Signs Temp 98.7 F 07/13/19 11:46 Pulse 128 H 07/13/19 11:46 Resp 20 H 07/13/19 11:46 BP 159/106 07/13/19 11:46 Pulse Ox 98 07/13/19 11:56 Weight last 48 hrs Weight 72.575 kg Physical Exam Const: COMMON NORMALS: no apparent distress GENERAL APPEARANCE: comfortable, disheveled, diaphoretic (significantly) and odor of alcohol detected ORIENTATION/CONSCIOUSNESS: Yes lethargic HENMT: COMMON NORMALS: normocephalic, head/scalp atraumatic and hearing grossly normal bilaterally HEAD & SCALP: normocephalic and atraumatic MOUTH: moist mucous membranes abnormal Details: parched and malodorous breath Eye: COMMON NORMALS: conjunctivae normal CONJUNCTIVA: Yes conjunctivae normal PUPIL: Yes PERRL Neck/C-Spine: COMMON NORMALS: full ROM GENERAL: Yes normal visual inspection and Yes trachea midline Resp: COMMON NORMALS: normal respiratory effort, no retractions, no use of accessory muscles and clear to auscultation bilaterally EFFORT & INSPECTION: Yes symmetric chest movement and No tachypneic AUSCULTATION: clear to auscultation bilaterally Cardio: COMMON NORMALS: regular rate, regular rhythm, S1 normal heart sound, S2 normal heart sound and no murmurs RATE: tachycardic RHYTHM: regular rhythm HEART SOUNDS: S1 normal and S2 normal GI: COMMON NORMALS: normal to inspection, nondistended, normoactive bowel sounds, soft to palpation and non-tender PALPATION: Yes soft Extremity: COMMON NORMALS: normal to inspection, full ROM and no clubbing, cyanosis or edema; negative for no pedal edema Neuro: COMMON NORMALS: moves all extremities and no focal motor deficits Psych: APPEARANCE: Yes unkempt ACTIVITY/MOTOR BEHAVIOR: Yes fidgeting Skin: COMMON NORMALS: no rashes or lesions noted, no jaundice, no petechiae and no mottling GENERAL SKIN EXAM: no rashes or lesions noted Data : 07/13/19 12:16 07/13/19 12:16 A&P Assessment and plan (1) Alcohol use disorder: -Has known history of alcohol abuse -Negative alcohol screen, reported last use was approximately 2 days ago -Has prior history of severe alcohol withdrawal, DTs -Is significantly hypertensive, tachycardic, diaphoretic, tremulous and very somnolent -Continued close monitoring of vital signs -Currently able to protect his airway, should this change may require intubation -IV fluid hydration -CIWA protocol, thiamine/MVI/folic acid daily -noted LFTs elevation, if improved, may consider librium -1:1 monitoring for safety -fall/seizure/aspiration precautions -if agitated/aggressive, may need soft restraints Status: Acute (2) Methamphetamine abuse: -UDS positive for amphetamines/THC Status: Acute Code(s): F15.10 - Other stimulant abuse, uncomplicated Additional A&P Information -Depression, bipolar disorder -HTN -hold sedating meds -regular diet once awake -DVT ppx with Lovenox -Dispo: home -Code status: FULL code -ICU admission due to high risk for severe alcohol withdrawal Attestations Medical Necessity Statement*: Israel Gordon's hospital stay will require greater than 2 midnights for management of severe alcohol withdrawal and methamphetamine abuse. Time Spent in Patient Care: Greater than 35 minutes (>than 50% of time spent in counselling and/or direct pt care on unit) . Coding Level of Care Code Acute English Language Learner Teacher for Camila Alvares Diagnoses Alcohol use disorder Methamphetamine abuse F15.10
[2019-07-13 15:13] LABS: Bacteria Urine TRACE; Bilirubin Urine Neg (NEGATIVE); Blood Urine Neg (Negative); Glucose Urine UA Norm (Normal); Ketones Urine 2+ (Negative); Leukocyte Esterase Urine Negative (Negative); Mucus Urine 2+; Nitrate Urine Negative (Negative); Protein Urine Trace (Negative); Sperm Urine 2+; Urine Appearance Clear (CLEAR); Urine Color Yellow (Yellow); Urobilinogen Urine Norm (Negative); pH Urine 7 (5-7)
[2019-07-13 15:39] LABS: Troponin 5 2HR 61.87 ng/mL (0-15); Troponin 5 2HR Delta 6.87 ABS# (0-10)
[2019-07-13 15:46] LABS: Barbiturates Screen Urine Negative (Negative); Benzodiazepines Screen Urine Negative (Negative); Cocaine Screen Urine Negative (Negative); Opiate Screen Urine Negative (Negative); PCP Screen Urine Negative (Negative); THC Screen Urine Positive (Negative)
[2019-07-13 15:48] LABS: Amphetamines Screen Urine Positive (Negative)
--- NOTE | 2019-07-13 17:59 | ECG_ITS ---
Measurements Intervals [place] Rate: 127 P: 51 CA: 147 QRS: 48 QRSD: 86 T: 64 QT: 311 QTc: 453 SINUS TACHYCARDIA ABNORMAL RHYTHM ECG Compared to ECG 02/19/2018 23:54:57 No significant changes Electronically Signed On 07-13-2019 20:08:36 CABINET ABRASIVE SANDBLASTER by Jaquan Lee M.D. [id number]
[2019-07-13 18:24] LABS: Oxygen Device RA
[2019-07-13] MEDS: enoxaparin 40 mg/0.4 mL Syringe SUBCUT (19:10)
[2019-07-13] MEDS: dextrose 5%-sod chloride 0.45% 1,000 ML 150 ML IV (19:10)
[2019-07-13 19:19] LABS: Troponin 5 6HR 52.57 ng/L (0-15)
[2019-07-13 19:23] LABS: Troponin 5 6HR Delta -2.43 ng/L (0-12)
[2019-07-13] MEDS: nicotine 21 mg Patch 1 PATCH TRANSDERMA (21:58)
[2019-07-13] MEDS: morphine 4 mg/mL SDV 1 mL IVP (21:58)
[2019-07-14] VITALS (22 sets, daily range): BP systolic 115–157; BP diastolic 75–103; PULSE 99–140; RESP 15–32; TEMP 36.3–37.1; O2SAT 85–98; BMI 22.4
[2019-07-14] MEDS: dextrose 5%-sod chloride 0.45% 1,000 ML 150 ML IV ×2 (02:25→09:46)
[2019-07-14] MEDS: LORazepam 2 mg/mL INJ 1 mL IVP ×5 (03:21→22:12)
[2019-07-14 05:07] LABS: Basophils % 0.1 %; Eosinophils # 0.1 10^3/uL (0.0-0.8); Eosinophils % 0.4 %; Hematocrit 42.3 % (42.0-52.0); Hemoglobin 14.6 g/dL (11.7-16.6); Lymphocytes # 1.6 10^3/uL (0.8-4.8); Lymphocytes % 12.2 %; Mean Corpuscular HGB Conc 34.5 g/dL (30.0-36.0); Mean Corpuscular Hemoglobin 35.8 pg (28.0-34.0); Mean Corpuscular Volume 103.7 fL (80-94); Mean Platelet Volume 8.7 fL (7.4-10.4); Monocytes # 1.1 10^3/uL (0.2-0.9); Monocytes % 8.4 %; Neutrophils # 10.5 10^3/uL (1.8-7.7); Neutrophils % 78.6 %; Nucleated Red Blood Cells % 0 %; Platelet Count 300 10^3/cmm (130-400); Red Blood Count 4.08 10^6/uL (4.1-5.3); White Blood Count 13.4 10^3/uL (4.0-10.0)
[2019-07-14 05:31] LABS: Alanine Aminotransferase 52 U/L (0-41); Albumin Level 3.7 g/dL (3.5-5.2); Alkaline Phosphatase 94 IU/L (40-130); Anion Gap 15.3 (5-19); Aspartate Amino Transferase 50 U/L (0-40); Blood Urea Nitrogen 6 mg/dL (6-20); Calcium 8.6 mg/dL (8.5-10.5); Carbon Dioxide 25 mmol/L (22-29); Chloride 97 mmol/L (98-107); Globulin 2.9 g/dL (1.3-4.6); Glucose 121 mg/dL (65-115); Potassium 3.3 mmol/L (3.5-5.1); Sodium 134 mmol/L (136-145); Total Bilirubin 1.5 mg/dL (0.15-1.2); Total Protein 6.6 g/dL (6.6-8.7)
[2019-07-14] MEDS: acetaminophen 325 mg Tablet 650 MG PO (06:20)
[2019-07-14] MEDS: multivitamin therapeutic Tablet 1 TAB PO (09:46)
[2019-07-14] MEDS: folic acid 1 mg Tablet PO (09:46)
[2019-07-14] MEDS: nicotine 21 mg Patch 1 PATCH TRANSDERMA (09:47)
[2019-07-14] MEDS: thiamine 100 mg Tablet PO (10:24)
--- NOTE | 2019-07-14 11:22 | PM.PN ---
Subjective Subjective: Interval history: AM labs noted, required total of 8 mg IV Ativan overnight. CIWA remains high. Replace K. Patient seen and examined, sitter at bedside, is much more alert and oriented today though still complains of feeling diaphoretic, tremulous/anxious. Mentions difficulty with urination which he apparently has had secondary to methamphetamine abuse in the past. Was bladder scanned this afternoon and found to have greater than 400 mL, will place Glass catheter due to acute urinary retention. Medications: Reviewed: Yes Medication Review Details: Current Medications Generic Name Dose Route Start Last Admin Trade Name Freq PRN Reason Stop Dose Admin Acetaminophen 650 mg 07/13/19 18:23 07/14/19 06:20 Tylenol PO 650 mg Q6H PRN Administration Mild/Mod Pain Or Temp >/= 101 Enoxaparin Sodium 40 mg 07/13/19 18:23 07/13/19 19:10 Lovenox SUBCUT 40 mg Q24H ALEC Administration Folic Acid 1 mg 07/14/19 09:00 07/14/19 09:46 Folic Acid PO 1 mg DAILY ALEC Administration Dextrose/Sodium Ch loride 1,000 mls @ 150 m ls/hr 07/13/19 18:23 07/14/19 09:46 Dextrose 5%-Sod Chloride 0.45% IV 150 mls/hr .Q6H40M ALEC Administration Lorazepam 2 mg 07/13/19 18:23 07/14/19 11:16 Ativan IVP 2 mg PRN PRN Administration WITHDRAWAL Protocol Morphine Sulfate 4 mg 07/13/19 18:23 07/13/19 21:58 Morphine IVP 4 mg Q4H PRN Administration SEVERE PAIN Multivitamins Ther apeutic 1 tab 07/14/19 09:00 07/14/19 09:46 Multivitamin Tab PO 1 tab DAILY ALEC Administration Nicotine 1 patch 07/14/19 09:00 07/14/19 09:47 Nicoderm 21 Mg P atch TRANSDERMA 1 patch DAILY ALEC Administration Thiamine Mononitra te 100 mg 07/14/19 09:00 07/14/19 10:24 Vitamin B-1 PO 100 mg DAILY ALEC Administration Vitals/I&O/Wt Last Vital Signs Temp 98.8 F 07/14/19 08:00 Pulse 99 07/14/19 10:00 Resp 32 H 07/14/19 10:00 BP 115/83 07/14/19 10:00 Pulse Ox 96 07/14/19 10:00 07/13/19 07/14/19 07/14/19 22:59 06:59 14:59 Intake Total 786 / 786 1400 / 2186 1000 / 1000 Balance 786 / 786 1400 / 2186 1000 / 1000 Weight last 48 hrs Weight 70.902 kg Weight 72.575 kg Physical Exam Const: COMMON NORMALS: no apparent distress, oriented x3 and alert GENERAL APPEARANCE: comfortable and diaphoretic (significantly) HENMT: COMMON NORMALS: normocephalic, head/scalp atraumatic and hearing grossly normal bilaterally HEAD & SCALP: normocephalic and atraumatic MOUTH: moist mucous membranes abnormal Details: parched and malodorous breath Eye: COMMON NORMALS: PERRL and conjunctivae normal CONJUNCTIVA: Yes conjunctivae normal PUPIL: Yes PERRL Neck/C-Spine: COMMON NORMALS: full ROM GENERAL: Yes normal visual inspection and Yes trachea midline Resp: COMMON NORMALS: normal respiratory effort, no retractions, no use of accessory muscles and clear to auscultation bilaterally EFFORT & INSPECTION: Yes symmetric chest movement and No tachypneic AUSCULTATION: clear to auscultation bilaterally Cardio: COMMON NORMALS: regular rate, regular rhythm, S1 normal heart sound, S2 normal heart sound and no murmurs RATE: regular rate and tachycardic RHYTHM: regular rhythm HEART SOUNDS: S1 normal and S2 normal GI: COMMON NORMALS: normal to inspection, nondistended, normoactive bowel sounds, soft to palpation and non-tender PALPATION: Yes soft Extremity: COMMON NORMALS: normal to inspection, full ROM and no clubbing, cyanosis or edema; negative for no pedal edema Neuro: COMMON NORMALS: oriented x3, moves all extremities and no focal motor deficits SENSORIUM/ORIENTATION: Yes alert Psych: APPEARANCE: Yes grossly normal ACTIVITY/MOTOR BEHAVIOR: Yes fidgeting Skin: COMMON NORMALS: no rashes or lesions noted, no jaundice, no petechiae and no mottling GENERAL SKIN EXAM: no rashes or lesions noted Data : 07/14/19 05:06 07/14/19 05:06 A&P Assessment and plan (1) Alcohol use disorder: -Has known history of alcohol abuse -Negative alcohol screen, reported last use was approximately 2 days prior to admission -Has prior history of severe alcohol withdrawal, DTs -was significantly hypertensive, tachycardic, diaphoretic, tremulous and very somnolent; BP has improved, mildly tachycardic -Continued close monitoring of vital signs -Currently able to protect his airway, should this change may require intubation -IV fluid hydration; decreased with improved oral intake -CIWA protocol, thiamine/MVI/folic acid daily -noted LFTs elevation, if improved, may consider librium -1:1 monitoring for safety -fall/seizure/aspiration precautions -if agitated/aggressive, may need soft restraints Status: Acute (2) Methamphetamine abuse: -UDS positive for amphetamines/THC Status: Acute Code(s): F15.10 - Other stimulant abuse, uncomplicated Additional A&P Information -Depression, bipolar disorder -HTN -Hypokalemia; replace as needed -Rhabdomyolysis; [id number]; continue to trend; on IVF -Acute urinary retention; found to have over 400 mL on bladder scan, please Glass catheter; assess daily for removal; continue to monitor urinary output -hold sedating meds -regular diet -DVT ppx with Lovenox -Dispo: home -Code status: FULL code -ICU care due to high risk for severe alcohol withdrawal Attestations Medical Necessity Statement*: Patient requires hospitalization for continued management of acute alcohol withdrawal and rhabdomyolysis. Time Spent in Patient Care: Greater than 35 minutes (>than 50% of time spent in counselling and/or direct pt care on unit). Coding Level of Care Code Acute Medical Billing Coordinator for Camila Fwpatricia Exam Problem Focused Diagnoses Alcohol use disorder Methamphetamine abuse F15.10
--- NOTE | 2019-07-14 11:40 | PC.CHAP ---
Pastoral Care Encounter/Spiritual Assessment Type of Contact [] Declined manufacturers service representative visit [] Patient/Family/Request visit [] Outpatient visit [] Follow-up visit [] Physician referral [] Code/Alert [x] Routine visit [] Staff referral [] Actively dying [] Patient sleeping [] Family support [] [] Out of room [] Palliative care [] [] Receiving care in room [] Pre-surgical visit [] Trauma [] Long length of stay [x] ICU visit [] Other: Relational/Emotional Strength [] Patient feels connected with others/family/visitors/staff [] Distress [] Loneliness/isolation [] Abandonment Spirituality of Patient [] Person of Mena [] Attends Yarsani of their Mena [x] Believes in Prayer [] Reads Bible or Baptist materials [] There are Spiritual issues to be addressed Installations Inspector Interventions [x] Prayer [] Active listening [] Non-anxious presence [] Spiritual/emotional support [] Crisis/trauma care [] Spiritual counseling [] Bereavement support [] Provided bereavement packet [] Provided Bible/devotional materials [] Provided toy/stuffed animal, coloring book to patient or family member [] Provided Communion [] Anointing/[place] [] Salvation [x] Completed spiritual assessment [] Other: Impact on Illness or Injury [] Angry [] Fearful [] Anxious [] Often cries [] Exhaustion [] Unable to work [] Unable to attend jew [] Unable to walk/stand [] Unable to read [] Unable to drive [] Unable to eat/drink [] Unable to sleep [] Unable to be with family [] Patient intubated [] Other: Summary Patient has a nurse watcher. Patient asking about . Time spent with patient 10min
[2019-07-14] MEDS: dextrose 5%-sod chloride 0.45% 1,000 ML 100 ML IV (17:00)
[2019-07-14] MEDS: enoxaparin 40 mg/0.4 mL Syringe SUBCUT (18:09)
[2019-07-15] VITALS (13 sets, daily range): BP systolic 93–134; BP diastolic 57–99; PULSE 93–122; RESP 17–31; O2SAT 89–96; BMI 22.4
[2019-07-15] MEDS: dextrose 5%-sod chloride 0.45% 1,000 ML 100 ML IV (01:27)
[2019-07-15] MEDS: LORazepam 2 mg/mL INJ 1 mL IVP ×3 (01:28→08:26)
[2019-07-15 05:41] LABS: Alanine Aminotransferase 42 U/L (0-41); Albumin Level 3.3 g/dL (3.5-5.2); Alkaline Phosphatase 87 IU/L (40-130); Anion Gap 13.3 (5-19); Aspartate Amino Transferase 30 U/L (0-40); Blood Urea Nitrogen 4 mg/dL (6-20); Calcium 8.7 mg/dL (8.5-10.5); Carbon Dioxide 25 mmol/L (22-29); Chloride 99 mmol/L (98-107); Globulin 3.1 g/dL (1.3-4.6); Glomerular Filtration Rate 123.7 mL/min (90-130); Glucose 125 mg/dL (65-115); Potassium 3.3 mmol/L (3.5-5.1); Sodium 134 mmol/L (136-145); Total Bilirubin 0.9 mg/dL (0.15-1.2); Total Protein 6.4 g/dL (6.6-8.7)
[2019-07-15 05:49] LABS: Creatine Phosphokinase 446 U/L (39-308)
[2019-07-15] MEDS: nicotine 21 mg Patch 1 PATCH TRANSDERMA (08:18)
[2019-07-15] MEDS: multivitamin therapeutic Tablet 1 TAB PO (08:20)
[2019-07-15] MEDS: thiamine 100 mg Tablet PO (08:20)
[2019-07-15] MEDS: folic acid 1 mg Tablet PO (08:20)
--- NOTE | 2019-07-15 08:46 | PC.CHAP ---
Pastoral Care Encounter/Spiritual Assessment Type of Contact [] Declined school services officer visit [] Patient/Family/Request visit [] Outpatient visit [] Follow-up visit [] Physician referral [] Code/Alert [x] Routine visit [] Staff referral [] Actively dying [] Patient sleeping [] Family support [] [] Out of room [] Palliative care [] [] Receiving care in room [] Pre-surgical visit [] Trauma [] Long length of stay [x] ICU visit [] Other: Relational/Emotional Strength [] Patient feels connected with others/family/visitors/staff [] Distress [x] Loneliness/isolation [] Abandonment Spirituality of Patient [] Person of Mena [] Attends Baptist of their Mena [x] Believes in Prayer [] Reads Bible or Mosque materials [] There are Spiritual issues to be addressed Machine Shop Instructor Interventions [x] Prayer [] Active listening [] Non-anxious presence [] Spiritual/emotional support [] Crisis/trauma care [] Spiritual counseling [] Bereavement support [] Provided bereavement packet [] Provided Bible/devotional materials [] Provided toy/stuffed animal, coloring book to patient or family member [] Provided Communion [] Anointing/[place] [] Salvation [x] Completed spiritual assessment [] Other: Impact on Illness or Injury [] Angry [] Fearful [] Anxious [] Often cries [] Exhaustion [] Unable to work [] Unable to attend roman catholic [] Unable to walk/stand [] Unable to read [] Unable to drive [] Unable to eat/drink [] Unable to sleep [] Unable to be with family [] Patient intubated [] Other: Summary Patient longs for visits from family. Time spent with patient 10min
--- NOTE | 2019-07-15 11:02 | P.PN_ITS ---
Subjective Subjective: Interval history: AM labs noted, CPK down to the 400s. Will d/c IVF. Had 2300 mL urine output overnight. Required a total of 8 mg of IV Ativan overnight. LFTs normalized, will start on Librium. Informed later in the afternoon the patient has left AMA. Medications: Reviewed: Yes Medication Review Details: Current Medications Generic Name Dose Route Start Last Admin Trade Name Freq PRN Reason Stop Dose Admin Acetaminophen 650 mg 07/13/19 18:23 07/14/19 06:20 Tylenol PO 650 mg Q6H PRN Administration Mild/Mod Pain Or Temp >/= 101 Enoxaparin Sodium 40 mg 07/13/19 18:23 07/14/19 18:09 Lovenox SUBCUT 40 mg Q24H ALEC Administration Folic Acid 1 mg 07/14/19 09:00 07/15/19 08:20 Folic Acid PO 1 mg DAILY ALEC Administration Lorazepam 2 mg 07/13/19 18:23 07/15/19 08:26 Ativan IVP 2 mg PRN PRN Administration WITHDRAWAL Protocol Morphine Sulfate 4 mg 07/13/19 18:23 07/13/19 21:58 Morphine IVP 4 mg Q4H PRN Administration SEVERE PAIN Multivitamins Ther apeutic 1 tab 07/14/19 09:00 07/15/19 08:20 Multivitamin Tab PO 1 tab DAILY ALEC Administration Nicotine 1 patch 07/14/19 09:00 07/15/19 08:18 Nicoderm 21 Mg P atch TRANSDERMA 1 patch DAILY ALEC Administration Thiamine Mononitra te 100 mg 07/14/19 09:00 07/15/19 08:20 Vitamin B-1 PO 100 mg DAILY ALEC Administration Vitals/I&O/Wt Last Vital Signs Temp 98.8 F 07/14/19 08:00 Pulse 111 H 07/15/19 08:00 Resp 25 H 07/15/19 08:00 BP 132/87 07/15/19 08:00 Pulse Ox 96 07/15/19 08:00 07/14/19 07/15/19 07/15/19 22:59 06:59 14:59 Intake Total 1720 / 3160 1000 / 4160 250 / 250 Output Total 550 / 550 2300 / 2850 Balance 1170 / 2610 -1300 / 1310 250 / 250 Weight last 48 hrs Weight 70.902 kg Weight 70.902 kg Weight 72.575 kg Physical Exam Const: COMMON NORMALS: no apparent distress, oriented x3 and alert GENERAL APPEARANCE: comfortable and diaphoretic (significantly) HENMT: COMMON NORMALS: normocephalic, head/scalp atraumatic and hearing grossly normal bilaterally HEAD & SCALP: normocephalic and atraumatic MOUTH: moist mucous membranes abnormal Details: parched and malodorous breath Eye: COMMON NORMALS: PERRL and conjunctivae normal CONJUNCTIVA: Yes conjunctivae normal PUPIL: Yes PERRL Neck/C-Spine: COMMON NORMALS: full ROM GENERAL: Yes normal visual inspection and Yes trachea midline Resp: COMMON NORMALS: normal respiratory effort, no retractions, no use of accessory muscles and clear to auscultation bilaterally EFFORT & INSPECTION: Yes symmetric chest movement and No tachypneic AUSCULTATION: clear to aus cultation bilaterally Cardio: COMMON NORMALS: regular rate, regular rhythm, S1 normal heart sound, S2 normal heart sound and no murmurs RATE: regular rate and tachycardic RHYTHM: regular rhythm HEART SOUNDS: S1 normal and S2 normal GI: COMMON NORMALS: normal to inspection, nondistended, normoactive bowel sounds, soft to palpation and non-tender PALPATION: Yes soft Extremity: COMMON NORMALS: normal to inspection, full ROM and no clubbing, cyanosis or edema; negative for no pedal edema Neuro: COMMON NORMALS: oriented x3, moves all extremities and no focal motor deficits SENSORIUM/ORIENTATION: Yes alert Psych: APPEARANCE: Yes grossly normal ACTIVITY/MOTOR BEHAVIOR: Yes fidgeting Skin: COMMON NORMALS: no rashes or lesions noted, no jaundice, no petechiae and no mottling GENERAL SKIN EXAM: no rashes or lesions noted Urinary Catheter Management^: Glass: Cath Placed During This Visit: yes Urethral Indwelling: Yes Reason for Continuing Indwelling Catheter: Acute Urinary Retention or Obstruction Urinary Catheter Date of Insertion: 07/14/19 Urinary Catheter Time of Insertion: 16:45 Data : 07/14/19 05:06 07/15/19 04:40 A&P Assessment and plan (1) Alcohol use disorder: -Has known history of alcohol abuse -Negative alcohol screen, reported last use was approximately 2 days prior to admission -Has prior history of severe alcohol withdrawal, DTs -was significantly hypertensive, tachycardic, diaphoretic, tremulous and very somnolent; BP has improved, mildly tachycardic -Continued close monitoring of vital signs -Currently able to protect his airway, should this change may require intubation -IV fluid hydration; decreased with improved oral intake -CIWA protocol, thiamine/MVI/folic acid daily -LFTs have normalized, start on librium -1:1 monitoring for safety -fall/seizure/aspiration precautions -if agitated/aggressive, may need soft restraints Status: Acute (2) Methamphetamine abuse: -UDS positive for amphetamines/THC Status: Acute Code(s): F15.10 - Other stimulant abuse, uncomplicated Additional A&P Information -Depression, bipolar disorder -HTN -Hypokalemia; replace as needed -Rhabdomyolysis; [id number]; continue to trend; on IVF -Acute urinary retention; found to have over 400 mL on bladder scan, please Glass catheter; assess daily for removal; continue to monitor urinary output -hold sedating meds -regular diet -DVT ppx with Lovenox -Dispo: home -Code status: FULL code -transfer to floor for continued care Attestations Medical Necessity Statement*: Patient requires hospitalization for continued management of alcohol withdrawal. Patient left AMA Time Spent in Patient Care: Greater than 35 minutes (>than 50% of time spen t in counselling and/or direct pt care on unit) . Coding Level of Care Code Acute Scoop Driver for Camila Alvares Exam Problem Focused Diagnoses Alcohol use disorder Methamphetamine abuse F15.10
[2019-07-15] MEDS: chlordiazePOXIDE 25 mg Capsule PO (12:15)
--- NOTE | 2019-07-15 12:56 | PC.NURSE ---
Patient agitated and anxious throughout morning. Ativan administered per CIWA protocol with no change in patient behavior. Patient states I need to get out of here and check on some things. My is with bad people and they are stealing from me. Dr. Sweet in room. Orders received to d/c selby, fluids, IV, and patient may leave AMA. Selby removed, 10 cc removed from bulb, catheter intact. IV removed from left forearm with catheter intact. IV site asymptomatic. AMA form discussed with patient and signed. Patient given a jug of fluids to take with him. Belongings with patient and cabinet empty. This RN walked patient out of unit. Patient states I'm going to [place] and getting out of here. If my calls tell her that I love her and that I'm leaving.
--- NOTE | 2019-07-15 15:23 | P.DS_ITS ---
Discharge Providers Date of Admission: 07/13/19 14:11 Date of Discharge: July 15, 2019 Attending Provider at Admission: Micki Prado MD Attending Provider at Discharge: Micki Prado MD Primary Care Provider: Isabel Urbina MD Diagnoses at Discharge Discharge Diagnosis (1) Alcohol use disorder: Status: Acute Problem details: -Has known history of alcohol abuse -Negative alcohol screen, reported last use was approximately 2 days prior to admission -Has prior history of severe alcohol withdrawal, DTs -was significantly hypertensive, tachycardic, diaphoretic, tremulous and very somnolent; BP has improved, mildly tachycardic -Continued close monitoring of vital signs -Currently able to protect his airway, should this change may require intubation -IV fluid hydration; decreased with improved oral intake -CIWA protocol, thiamine/MVI/folic acid daily -LFTs have normalized, start on librium -1:1 monitoring for safety -fall/seizure/aspiration precautions -if agitated/aggressive, may need soft restraints (2) Methamphetamine abuse: Status: Acute Problem details: -UDS positive for amphetamines/THC Other Information Additional DC diagnoses/information: -Depression, bipolar disorder -HTN -Hypokalemia; replace as needed -Rhabdomyolysis; [id number]; continue to trend; d/c IVF -Acute urinary retention; had Glass catheter placed; good urine output. Removed prior to d/c Reason for Visit Reason for Visit: Reason For Visit: ANXIOUS Hospital Course Hospital Course: Patient was admitted to ICU due to noted acute alcohol withdrawal requiring close monitoring including 1:1 for safety. He was also found to be positive for amphetamines and THC. He was covered with CIWA protocol in addition to folic acid, thiamine, and multivitamins. He was found to have rhabdomyolysis so was hydrated with IVF. CPK has since trended down and IVF was discontined this AM. He has improved significantly with resolved hypertension, diaphoresis and anxiety; he has continued to have some degree of tachycardia. He was found to have acute urinary retention which he states is secondary to methamphetamine abuse and had a Glass catheter placed; this was removed prior to d/c. Earlier this AM he was noted to be anxious about his significant other and he opted to leave AMA by the afternoon. As such no presciptions were provided. He is at high risk for readmission given poor social support system and continued alcohol and substance abuse. Discharge Summary: -Patient to follow up with primary care physician within 1 week Physical Exam Const: COMMON NORMALS: no apparent distress, oriented x3 and alert GENERAL APPEARANCE: comfortable and diaphoretic (significantly) HENMT: COMMON NORMALS: normocephalic, head/scalp atraumatic and hearing grossly normal bilaterally HEAD & SCALP: normocephalic and atraumatic MOUTH: moist mucous membranes abnormal Details: parched and malodorous breath Eye: COMMON NORMALS: PERRL and conjunctivae normal CONJUNCTIVA: Yes conjunctivae normal PUPIL: Yes PERRL Neck/C-Spine: COMMON NORMALS: full ROM GENERAL: Yes normal visual inspecti on and Yes trachea midline Resp: COMMON NORMALS: normal respiratory effort, no retractions, no use of accessory muscles and clear to auscultation bilaterally EFFORT & INSPECTION: Yes symmetric chest movement and No tachypneic AUSCULTATION: clear to auscultation bilaterally Cardio: COMMON NORMALS: regular rate, regular rhythm, S1 normal heart sound, S2 normal heart sound and no murmurs RATE: regular rate and tachycardic RHYTHM: regular rhythm HEART SOUNDS: S1 normal and S2 normal GI: COMMON NORMALS: normal to inspection, nondistended, normoactive bowel sounds, soft to palpation and non-tender PALPATION: Yes soft Extremity: COMMON NORMALS: normal to inspection, full ROM and no clubbing, cyanosis or edema; negative for no pedal edema Neuro: COMMON NORMALS: oriented x3, moves all extremities and no focal motor deficits SENSORIUM/ORIENTATION: Yes alert Psych: APPEARANCE: Yes grossly normal ACTIVITY/MOTOR BEHAVIOR: Yes fidgeting Skin: COMMON NORMALS: no rashes or lesions noted, no jaundice, no petechiae and no mottling GENERAL SKIN EXAM: no rashes or lesions noted Urinary Catheter Management^: Glass: Cath Placed During This Visit: yes Urethral Indwelling: Yes Reason for Continuing Indwelling Catheter: Acute Urinary Retention or Obstruction Urinary Catheter Date of Insertion: 07/14/19 Urinary Catheter Time of Insertion: 16:45 Discharge Data Data Completed and Pending: Completed Studies During Hospitalization Category Date Time Status CT head wo con* 7 0450 Urgent Cat Scan 07/13/19 11:57 Completed XR chest 1V [place] ble [id number] Stat Exams 07/13/19 11:58 Completed Labs from last 24 hours 07/15/19 04:40 Sodium 134 L Potassium 3.3 L Chloride 99 Carbon Dioxide 25 Anion Gap 13.3 BUN 4 L Creatinine 0.7 GFR Calculation 123.7 Glucose 125 H Calcium 8.7 Total Bilirubin 0.9 AST 30 ALT 42 H Alkaline Phosphata se 87 Creatine Kinase 446 H* Total Protein 6.4 L Albumin 3.3 L Globulin 3.1 Vitals: Last Vital Signs Temp 98.8 F 07/14/19 08:00 Pulse 115 H 07/15/19 11:00 Resp 20 H 07/15/19 11:00 BP 127/99 07/15/19 12:00 Pulse Ox 94 07/15/19 10:00 Discharge Plan Discharge Patient Disposition: Left Against Medical Advice Condition: Fair Prescriptions: No Action lithium carbonate 300 mg Capsule 300 mg PO BID 30 Days Qty: 60 RF: 1 fluoxetine 20 mg Capsule 20 mg PO DAILY 30 Days Qty: 30 RF: 1 fluticasone propionate 50 mcg/actuation [place],Suspension 2 spray nasal BID 30 Days Qty: 50 RF: 0 Thera 400 mcg Tablet 1 tab PO DAILY 30 Days Qty: 30 RF: 1 clindamycin HCl 150 mg capsule 300 mg PO Q8H 3 Days Qty: 18 RF: 0 trazodone 100 mg Tablet 100 mg PO BEDTIME 30 Days Qty: 30 RF: 1 folic acid 1 mg Tablet 1 mg PO DAILY 30 Days Qty: 30 RF: 1 thiamine mononitrate (vit B1) [Vitamin B-1 (mononitrate)] 100 mg Tablet 100 mg PO DAILY 30 Days Qty: 30 RF: 1 ibuprofen 600 mg tablet 600 mg PO Q8H Qty: 30 RF: 0 Referrals: Isabel Urbina MD [Primary Care Provider] - 4-7 days (Post-hospital follow up) Discharge Diet: Regular Discharge Activity: Resume usual activity Discharge Date/Time: 07/15/19 12:45 Discharge Attestations Time Spent in Discharge Care*: less than 30 min Specific Discharge Activities: Specific discharge activities: documenting /other paperwork Status at Discharge: Cognitive status at discharge: cognitively intact , Behavioral status at discharge: cooperative , Functional status at discharge: independent ambulation Overall status at discharge: patient is back to baseline Quality Metrics Clinical Quality Measures During this hospital stay, did patient experience: None Coding Level of Care Code Acute Manager Environmental Health for Camila Fwd Diagnoses Alcohol use disorder Methamphetamine abuse F15.10
== END 2019-07-15 12:45 | disposition left against medical advice (07) | DRG 894 ==
LOC: ER 12:33 → ICU 16:43
PROVIDERS: Admitting Provider Family Medicine; Emergency Provider Emergency Medicine; PCP Family Medicine; Visit Provider Family Medicine
DX: F10.239 Alcohol dependence with withdrawal, unspecified (principal); M62.82 Rhabdomyolysis; E87.6 Hypokalemia; I10 Essential (primary) hypertension; R33.9 Retention of urine, unspecified; F15.10 Other stimulant abuse, uncomplicated; F31.9 Bipolar disorder, unspecified; R00.0 Tachycardia, unspecified; Z79.899 Other long term (current) drug therapy
CPT/HCPCS: 12345; 36415; 36600; 51702; 70450; 71045; 80053; 80307; 81001; 82009; 82550; 82803; 83735; 84484; 85025; 85610; 85730; 93005; 96372; 96375; 99283; J1650; J2060; J2270; J2405; J3411; J7030; J7799

== ENCOUNTER 2019-07-15 19:17 | Emergency (ER) | payer SELFPAY ==
[2019-07-15 19:22] VITALS: BP 110/75; PULSE 117; RESP 15; TEMP 36.6; O2SAT 97; BMI 22.9
--- NOTE | 2019-07-15 19:45 | ED_ITS ---
Entered by Pratibha Mcgowan, acting as scribe for Fransisco Berry MD HPI - Psych General: Chief Complaint: Psychiatric Symptoms Stated Complaint: etoh/drugs Time Seen by Provider: 07/15/19 19:37 Source: patient Mode of arrival: ambulatory History of Present Illness: HPI Narrative: 43 y/o male presents to the ED with complaint of ETOH intoxication. Pt states he has been using methamphetamines and he is wanting to detox. Pt states he is currently homeless. MD complaint: altered mental status (ETOH) History of same: Yes Relieving factors: none Exacerbating factors: alcohol and drug use Context: recent alcohol abuse and recent drug abuse Associated psychiatric symptoms: depression Associated symptoms: Reports depression Review of Systems Const: Denies: fever, chills, body aches or change in appetite Eyes: Denies: blurry vision or eye discomfort ENMT: Denies: throat pain or dental pain Card: Denies: chest pain Resp: Denies: shortness of breath GI: Denies: abdominal pain, nausea, vomiting or diarrhea : Denies: painful urination Musc: Denies: neck pain or back pain Skin/Breast: Denies: rash Neuro: Denies: headache Psych: Reports: depression [place]/Lymph: Denies: easy bruising All/Imm: Denies: hives PFSH ED PFSH: Statuses (acute, chronic, etc) shown below reflect problem list status as previously entered and may not be historically accurate Medical History (Updated 07/15/19 @ 20:10 by Fransisco Berry MD) Adjustment disorder with mixed disturbance of emotions and conduct Alcohol use disorder -Has known history of alcohol abuse -Negative alcohol screen, reported last use was approximately 2 days prior to admission -Has prior history of severe alcohol withdrawal, DTs -was significantly hypertensive, tachycardic, diaphoretic, tremulous and very somnolent; BP has improved, mildly tachycardic -Continued close monitoring of vital signs -Currently able to protect his airway, should this change may require intubation -IV fluid hydration; decreased with improved oral intake -CIWA protocol, thiamine/MVI/folic acid daily -LFTs have normalized, start on librium -1:1 monitoring for safety -fall/seizure/aspiration precautions -if agitated/aggressive, may need soft restraints Bipolar 1 disorder, manic, mild Depressive disorder, not elsewhere classified Methamphetamine abuse -UDS positive for amphetamines/THC Surgical History (Updated 07/13/19 @ 16:12 by Micki Prado MD) H/O hernia repair History of appendectomy Family History (Updated 07/13/19 @ 16:13 by Micki Prado MD) Other Alcoholism /alcohol abuse Social History (Updated 07/13/19 @ 16:13 by Micki Prado MD) Smoking and tobacco status: current every day smoker Alcohol intake: current Current gender identity: Male Physical Exam Const: COMMON NORMALS: no apparent distress, oriented x3 and healthy appearing HENMT: COMMON NORMALS: normocephalic and head/scalp atraumatic HEAD & SCALP: normocephalic and atraumatic Eye: COMMON NORMALS: PERRL and EOMs intact bilaterally PUPIL: Yes PERRL Neck/C-Spine: COMMON NORMALS: full ROM and supple Chest: COMMONS NORMALS: inspection of chest normal and palpation of chest normal Resp: COMMON NORMALS: normal respiratory effort, no retractions, no use of accessory muscles and clear to auscultation bilaterally AUSCULTATION: clear to auscultation bilaterally Cardio: COMMON NORMALS: regular rate, regular rhythm and no murmurs RATE: regular rate RHYTHM: regular rhythm GI: COMMON NORMALS: normal to inspection, nondistended, normoactive bowel sounds, soft to palpation, non-tender and no masses PALPATION: Yes soft Extremity: COMMON NORMALS: normal to inspection and full ROM Neuro: COMMON NORMALS: oriented x3, moves all extremities and no focal motor deficits Psych: COMMON NORMALS: mental status grossly normal, thought process normal and cooperative THOUGHT PROCESS: normal thought process Skin: COMMON NORMALS: no rashes or lesions noted and no wounds GENERAL SKIN EXAM: no rashes or lesions noted MDM - Psych MDM Narrative: Medical decision making narrative: Patient presents here with drug abuse along with alcohol abuse. Patient is not suicidal or homicidal. Patient is able to ambulate and is not a threat to himself or others. Patient is stable for discharge at this time. Discharge Plan Discharge Patient Disposition: Home, Self-Care Clinical Impression: Alcohol use disorder, Methamphetamine abuse Condition: Stable Prescriptions: No Action lithium carbonate 300 mg Capsule 300 mg PO BID 30 Days Qty: 60 RF: 1 fluticasone propionate 50 mcg/actuation [place],Suspension 2 spray nasal BID 30 Days Qty: 50 RF: 0 Thera 400 mcg Tablet 1 tab PO DAILY 30 Days Qty: 30 RF: 1 clindamycin HCl 150 mg capsule 300 mg PO Q8H 3 Days Qty: 18 RF: 0 trazodone 100 mg Tablet 100 mg PO BEDTIME 30 Days Qty: 30 RF: 1 folic acid 1 mg Tablet 1 mg PO DAILY 30 Days Qty: 30 RF: 1 thiamine mononitrate (vit B1) [Vitamin B-1 (mononitrate)] 100 mg Tablet 100 mg PO DAILY 30 Days Qty: 30 RF: 1 Prozac 20 mg capsule 20 mg PO DAILY RF: 0 ibuprofen 600 mg tablet 600 mg PO Q8H Qty: 30 RF: 0 Discharge Orders: Discharge Order (Routine); Ordered 07/15/19 Ordered By: Fransisco Berry Referrals: Isabel Urbina MD [Primary Care Provider] - Discharge Diet: Advance as tolerated Discharge Activity: Resume usual activity Patient Instructions: Methamphetamine Abuse (ED) Discharge Date/Time: 07/15/19 20:38 Coding Level of Care Code ED Industrial Analyst for Chg Fwd Exam Problem Focused The documentation recorded by the Juan M frankel Ashley, accurately reflects the service I personally performed and the decisions made by Kristi baldwin Korby, MD Jul 15, 2019 19:17
== END 2019-07-15 20:38 | disposition home or self-care (01) ==
PROVIDERS: Emergency Provider Emergency Medicine; PCP Family Medicine
DX: F10.10 Alcohol abuse, uncomplicated (principal); F15.10 Other stimulant abuse, uncomplicated; F32.0 Major depressive disorder, single episode, mild; F43.25 Adjustment disorder with mixed disturbance of emotions and conduct; F17.200 Nicotine dependence, unspecified, uncomplicated; Z59.0 Homelessness; Z81.1 Family history of alcohol abuse and dependence
CPT/HCPCS: 99281; 99282; 99284

== ENCOUNTER 2019-07-27 15:52 | Inpatient (IN) | payer SELFPAY ==
[2019-07-27 16:03] VITALS: BP 178/114; PULSE 112; RESP 17; TEMP 37.4; O2SAT 96; BMI 21.4
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
[2019-07-27 17:08] LABS: Basophils % 0.2 %; Eosinophils % 0.2 %; Hematocrit 44.8 % (42.0-52.0); Hemoglobin 15.2 g/dL (11.7-16.6); Lymphocytes # 1.2 10^3/uL (0.8-4.8); Lymphocytes % 12.8 %; Mean Corpuscular HGB Conc 33.9 g/dL (30.0-36.0); Mean Corpuscular Hemoglobin 35.8 pg (28.0-34.0); Mean Corpuscular Volume 105.7 fL (80-94); Mean Platelet Volume 9.1 fL (7.4-10.4); Monocytes # 0.6 10^3/uL (0.2-0.9); Monocytes % 5.9 %; Neutrophils # 7.8 10^3/uL (1.8-7.7); Neutrophils % 80.6 %; Nucleated Red Blood Cells % 0 %; Platelet Count 416 10^3/cmm (130-400); Red Blood Count 4.24 10^6/uL (4.1-5.3); Red Cell Distribution Width 12.3 % (12.1-15.1); White Blood Count 9.6 10^3/uL (4.0-10.0)
[2019-07-27 17:24] LABS: Alanine Aminotransferase 31 U/L (0-41); Albumin Level 4.3 g/dL (3.5-5.2); Alkaline Phosphatase 96 IU/L (40-130); Anion Gap 15.8 (5-19); Aspartate Amino Transferase 25 U/L (0-40); Blood Urea Nitrogen 15 mg/dL (6-20); Calcium 9.1 mg/dL (8.5-10.5); Carbon Dioxide 24 mmol/L (22-29); Chloride 103 mmol/L (98-107); Creatinine Clr Calc Pharmacy 120.7013; Globulin 2.9 g/dL (1.3-4.6); Glucose 125 mg/dL (65-115); Potassium 3.8 mmol/L (3.5-5.1); Sodium 139 mmol/L (136-145); Thyroid Stimulating Hormone 1.27 uIU/mL (0.27-4.20); Total Bilirubin 0.3 mg/dL (0.15-1.2); Total Protein 7.2 g/dL (6.6-8.7)
[2019-07-27 17:28] LABS: Acetaminophen < 5.0 ug/mL (10-30); Alcohol Level < 10 mg/dL (0-10); Salicylate < 0.3 mg/dL (3-10)
[2019-07-27 17:43] LABS: Add Urine Microscopic? NO
[2019-07-27 17:47] LABS: Urine Appearance Clear (CLEAR); Urine Color Yellow (Yellow); pH Urine 6 (5-7)
[2019-07-27 17:48] LABS: Bilirubin Urine Neg (NEGATIVE); Blood Urine Neg (Negative); Glucose Urine UA Norm (Normal); Ketones Urine 1+ (Negative); Leukocyte Esterase Urine Negative (Negative); Nitrate Urine Negative (Negative); Protein Urine Neg (Negative); Urobilinogen Urine 1 mg/dL (Negative)
[2019-07-27 18:11] LABS: Amphetamines Screen Urine Negative (Negative); Barbiturates Screen Urine Negative (Negative); Benzodiazepines Screen Urine Negative (Negative); Cocaine Screen Urine Negative (Negative); Opiate Screen Urine Negative (Negative); PCP Screen Urine Negative (Negative); THC Screen Urine Negative (Negative)
[2019-07-27 18:35] VITALS: BP 163/114; PULSE 96; RESP 20; TEMP 36.8; O2SAT 97
[2019-07-27] MEDS: acetaminophen 325 mg Tablet 650 MG PO (21:54)
[2019-07-27] MEDS: nicotine 2 mg Gum BUCCAL (21:57)
[2019-07-27] MEDS: trazodone 50 mg Tablet PO (21:58)
[2019-07-28 06:00] VITALS: BP 131/86; PULSE 75; RESP 20; TEMP 36.7; O2SAT 97
[2019-07-28] MEDS: nicotine 21 mg Patch 1 PATCH TRANSDERMA (08:43)
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
[2019-07-28] MEDS: lithium carbonate 300 mg Capsule PO ×2 (12:06→17:05)
[2019-07-28] MEDS: multivitamin therapeutic Tablet 1 TAB PO (12:06)
[2019-07-28 12:39] LABS: Creatine Phosphokinase 191 U/L (39-308)
[2019-07-28 14:00] VITALS: BP 134/90; PULSE 82; RESP 20; TEMP 37.2; O2SAT 92
[2019-07-28 20:05] VITALS: BP 140/89; PULSE 93; RESP 19; TEMP 36.8; O2SAT 98
[2019-07-28] MEDS: acetaminophen 325 mg Tablet 650 MG PO (21:49)
[2019-07-28] MEDS: trazodone 100 mg Tablet PO (21:50)
[2019-07-28] MEDS: hyDROXYzine 25 mg Capsule 50 MG PO (21:50)
[2019-07-28] MEDS: nicotine 2 mg Gum BUCCAL (21:50)
[2019-07-29 06:00] VITALS: BP 123/76; PULSE 67; RESP 20; TEMP 36.4; O2SAT 99
[2019-07-29] MEDS: nicotine 2 mg Gum BUCCAL ×2 (08:27→21:08)
[2019-07-29] MEDS: multivitamin therapeutic Tablet 1 TAB PO (08:27)
[2019-07-29] MEDS: lithium carbonate 300 mg Capsule PO ×2 (08:27→17:06)
[2019-07-29] MEDS: nicotine 21 mg Patch 1 PATCH TRANSDERMA (11:06)
[2019-07-29 14:00] VITALS: BP 127/84; PULSE 91; RESP 20; TEMP 36.7; O2SAT 98
--- NOTE | 2019-07-29 16:49 | PM.NPN ---
Subjective NPU Subjective: Interval history: The patient has reflected on the last 4 years. He and his have had difficulties in their relationship, perhaps because he has had no job and no stable home. His 12-year-old daughter is with his parents and there is an aunt who is very wealthy and wants to take the child and put her through school and University. His mind is constantly ricocheting hither and yon, trying to unscramble all this. 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 He made very good income and had skills that were in increasing demand. He cannot figure out how he lost all this but the drugs had to have something to do with it. Medications: Reviewed: Yes Medication Review Details: He is back on his lithium and it will require a blood level on the , with titration. Current Medications Acetaminophen (Tylenol) 650 mg PO Q4H PRN PRN Reason: MILD PAIN Last Admin: 07/28/19 21:49 Dose: 650 mg Documented by: Benztropine Mesylate (Cogentin) 1 mg PO BID PRN PRN Reason: Mild Extrapyramidal symptoms Camphor/Menthol/Phenol (Blistex) 1 applic TOPICAL Q1H PRN PRN Reason: DRYNESS Diphenhydramine HCl (Benadryl) 50 mg IM ONCE PRN PRN Reason: Severe Extrapyramidal Symptoms Diphenhydramine HCl (Benadryl) 50 mg IM Q4H PRN PRN Reason: Severe Aggression Haloperidol (Haldol) 5 mg PO Q4H PRN PRN Reason: AGITATION Haloperidol Lactate (Haldol Inj) 5 mg IM Q4H PRN PRN Reason: Severe Aggression Hydroxyzine Pamoate (Vistaril) 50 mg PO Q6H PRN PRN Reason: ANXIETY Last Admin: 07/28/19 21:50 Dose: 50 mg Documented by: Ibuprofen (Motrin) 800 mg PO Q8H PRN PRN Reason: PAIN Last Admin: 07/29/19 14:29 Dose: 800 mg Documented by: Gilby Carbonate (Eskalith) 300 mg PO BID ALEC Last Admin: 07/29/19 08:27 Dose: 300 mg Documented by: Loperamide HCl (Imodium Capsule) 2 mg PO Q6H PRN PRN Reason: DIARRHEA Lorazepam (Ativan) 2 mg IM Q4H PRN PRN Reason: Severe Aggression Multivitamins Therapeutic (Multivitamin Tab) 1 tab PO DAILY [facility] Last Admin: 07/29/19 08:27 Dose: 1 tab Documented by: Nicotine (Nicoderm 21 Mg Patch) 1 patch TRANSDERMA DAILY PRN PRN Reason: NICOTINE WITHDRAWAL Last Admin: 07/29/19 11:06 Dose: 1 patch Documented by: Nicotine Polacrilex (Nicorette) 2 mg BUCCAL Q2H PRN PRN Reason: NICOTINE WITHDRAWAL Last Admin: 07/29/19 08:27 Dose: 2 mg Documented by: Olanzapine (Zyprexa Zydis) 5 mg PO Q4H PRN PRN Reason: Agitation/Psychosis Ondansetron HCl (Zofran) 4 mg PO Q6H PRN PRN Reason: NAUSEA AND VOMITING Trazodone HCl (Desyrel) 100 mg PO BEDTIME [facility] Last Admin: 07/28/19 21:50 Dose: 100 mg Documented by: Vitals/I&O/Wt Last Vital Signs Temp 98.1 F 07/29/19 14:00 Pulse 91 07/29/19 14:00 Resp 20 H 07/29/19 14:00 BP 127/84 07/29/19 14:00 Pulse Ox 98 07/29/19 14:00 Data NPU : 07/27/19 16:50 07/27/19 16:50 A&P Additional A&P Information (1) Alcohol use disorder: -Has known history of alcohol abuse -Negative alcohol screen, reported last use was approximately 2 days prior to admission -Has prior history of severe alcohol withdrawal, DTs -was significantly hypertensive, tachycardic, diaphoretic, tremulous and very somnolent; BP has improved, mildly tachycardic -Continued close monitoring of vital signs -Currently able to protect his airway, should this change may require intubation -IV fluid hydration; decreased with improved oral intake -CIWA protocol, thiamine/MVI/folic acid daily -LFTs have normalized, start on librium -1:1 monitoring for safety -fall/seizure/aspiration precautions -if agitated/aggressive, may need soft restraints (2) Methamphetamine abuse: -UDS positive for amphetamines/THC Additional A&P Information -Depression, bipolar disorder -HTN -Hypokalemia; replace as needed -Rhabdomyolysis; [id number]; continue to trend; CPK ordered today. Involuntary Hold Information 96 Hour Hold: 96 Hour Involuntary Admission: No Attestations NPU Medical Necessity Statement*: I anticipate 5-7 midnights additional hospitalization Time Spent in Patient Care: Greater than 35 minutes (>than 50% of time spent in counselling and/or direct pt care on unit). Coding Level of Care Code Acute Supervisor Heavy Equipment for Camila Alvares
[2019-07-29] MEDS: trazodone 100 mg Tablet PO (21:08)
[2019-07-29 21:25] VITALS: BP 119/79; PULSE 86; RESP 18; TEMP 36.8; O2SAT 97
[2019-07-30 06:00] VITALS: BP 103/66; PULSE 68; RESP 17; TEMP 36.6; O2SAT 98
[2019-07-30] MEDS: multivitamin therapeutic Tablet 1 TAB PO (08:16)
[2019-07-30] MEDS: lithium carbonate 300 mg Capsule PO ×3 (08:16→21:07)
[2019-07-30 14:00] VITALS: BP 109/70; PULSE 86; RESP 18; TEMP 36.9; O2SAT 96
[2019-07-30] MEDS: nicotine 21 mg Patch 1 PATCH TRANSDERMA (14:42)
--- NOTE | 2019-07-30 17:00 | P.PN_ITS ---
Subjective NPU Subjective: Interval history: Israel presents today very much focused on medications and medication changes to get his mind right. We discussed the importance of us focusing on both his medication management as well as his discharge planning as he at times has felt more like he was positioning for a long stay then planning for an inevitable discharge. We discussed the risks suyapa efits and alternatives of increasing his lithium, restarting his Prozac and adding a non-stimulant medication for his anxiety, and he understood and agreed to proceed as is documented in this note. He reports that he has not been sleeping all that great but previously he was on [id number] trazodone which we discussed was not a common practice at all.He talked about his focus being off in his mind being scattered and wanting to get that corrected before he was discharged. Mental Status Exam MSE Comments: This is a well-nourished, well-developed white male with adequate dress, grooming and eye contact. No abnormal movements. Cooperative with exam in mild distress. Speech was normal rate and volume. Mood described as depressed and scattered affect congruent. Thought process organized. Thought content: Patient denied any suicidal or homicidal ideations, there were no delusions reported or noted, he denied any auditory or visual. Attention and concentration were intact and memory appeared reliable but none were formally tested. He is alert and oriented x3. Insight and judgment are limited. Vitals/I&O/Wt Last Vital Signs Temp 98.4 F 07/30/19 14:00 Pulse 86 07/30/19 14:00 Resp 18 07/30/19 14:00 BP 109/70 07/30/19 14:00 Pulse Ox 96 07/30/19 14:00 Data NPU : 07/27/19 16:50 07/27/19 16:50 A&P Additional A&P Information This is a 43-year-old white male with a history of mood dysregulation and frequent recent hospitalizations who presents with his medications being adjusted and attempts to get him into appropriate post hospital treatment. 1. Continue current medication. Except: 2. Increase lithium with a plan for lithium level on August 02, 2019, restarted Prozac and initiate Inderal 20 mg p.o. 3 times daily as needed. 3. Encourage individual, group and milieu therapy. 4. Continue every 15 minute checks for safety. 5. Work with social work to identify an appropriate discharge plan. Involuntary Hold Information 96 Hour Hold: 96 Hour Involuntary Admission: No Attestations NPU Medical Necessity Statement*: Inpatient hospitalization is medically necessary and the clinically appropriate intervention at this time. We will monitor medications and titrate to effect. Likely length of stay 2 to 4 days. Coding Level of Care Code Acute Wildlife Forensic Geneticist for Camila Alvares
[2019-07-30] MEDS: fluoxetine 20 mg Capsule PO (17:33)
[2019-07-30] MEDS: trazodone 100 mg Tablet PO (21:07)
[2019-07-30] MEDS: propranolol 20 mg Tablet PO (21:07)
[2019-07-30] MEDS: nicotine 2 mg Gum BUCCAL (21:08)
--- NOTE | 2019-07-30 21:11 | PC.NURSE ---
PRN PROPRANOLOL PT GIVEN PROPRANOLOL 20 MG PO FOR C/O ANXIETY. WILL MONITOR FOR MEDICATION EFFECTIVENESS. .
[2019-07-30 22:00] VITALS: BP 135/79; PULSE 105; RESP 18; TEMP 36.7; O2SAT 95
[2019-07-31 06:00] VITALS: BP 116/78; PULSE 81; RESP 18; TEMP 36.6; O2SAT 97
[2019-07-31] MEDS: lithium carbonate 300 mg Capsule PO (08:07)
[2019-07-31] MEDS: multivitamin therapeutic Tablet 1 TAB PO (08:07)
[2019-07-31] MEDS: fluoxetine 20 mg Capsule PO (08:07)
[2019-07-31] MEDS: propranolol 20 mg Tablet PO (12:55)
--- NOTE | 2019-07-31 12:55 | PC.NURSE ---
PRN INDERAL INDERAL 20MG PO PER PATIENT C/O ANXIETY. WILL CONTINUE TO MONITOR FOR MEDICATION EFFECTIVENESS.
--- NOTE | 2019-07-31 14:00 | PC.NURSE ---
PRN INDERAL FOLLOW UP MEDICATION EFFECTIVE. NO FURTHER C/O ANXIETY.
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
[2019-07-31 15:05] VITALS: BP 116/78; PULSE 81; RESP 18; TEMP 36.6; O2SAT 97
== END 2019-07-31 16:00 | disposition home or self-care (01) | DRG 885 ==
LOC: ER 17:44 → NP 17:56
PROVIDERS: Emergency Provider Family Medicine; PCP Family Medicine
DX: F31.9 Bipolar disorder, unspecified (principal); R45.850 Homicidal ideations; F43.25 Adjustment disorder with mixed disturbance of emotions and conduct; F15.10 Other stimulant abuse, uncomplicated; F17.210 Nicotine dependence, cigarettes, uncomplicated
CPT/HCPCS: 12345; 36415; 80053; 80307; 81003; 82550; 84443; 85025; 99282; A9270

== ENCOUNTER 2019-08-31 15:11 | Emergency (ER) | payer SELFPAY ==
--- NOTE | 2019-08-31 15:22 | XR_ITS ---
WS: [id number] RIGHT ELBOW: 3 VIEW(S) TECHNIQUE: AP, oblique and lateral. HISTORY: injury COMPARISON: None available. No acute fractures or dislocation. No joint effusion. No soft tissue abnormality. XR/XR elbow RT min 3V* [id number] IMPRESSION: Normal RIGHT elbow.
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
[2019-08-31 15:24] VITALS: BP 139/90; PULSE 120; RESP 17; TEMP 37; O2SAT 94; BMI 22.9
--- NOTE | 2019-08-31 15:44 | PC.NURSE ---
portable xray at bedside
[2019-08-31 15:57] LABS: Basophils % 0.4 %; Eosinophils # 0.1 10^3/uL (0.0-0.8); Eosinophils % 0.8 %; Hematocrit 46.2 % (42.0-52.0); Hemoglobin 15.5 g/dL (11.7-16.6); Lymphocytes # 1.4 10^3/uL (0.8-4.8); Lymphocytes % 14.3 %; Mean Corpuscular HGB Conc 33.5 g/dL (30.0-36.0); Mean Corpuscular Hemoglobin 36.7 pg (28.0-34.0); Mean Corpuscular Volume 109.5 fL (80-94); Monocytes # 0.7 10^3/uL (0.2-0.9); Monocytes % 6.7 %; Neutrophils # 7.5 10^3/uL (1.8-7.7); Neutrophils % 77.6 %; Nucleated Red Blood Cells % 0 %; Platelet Count 293 10^3/cmm (130-400); Red Blood Count 4.22 10^6/uL (4.1-5.3); Red Cell Distribution Width 12.4 % (12.1-15.1); White Blood Count 9.7 10^3/uL (4.0-10.0)
--- NOTE | 2019-08-31 16:04 | PC.NURSE ---
pt told this nurse that he has thoughts of harming himself by jumping out in front of a train
[2019-08-31 16:13] LABS: Acetaminophen < 5.0 ug/mL (10-30); Alanine Aminotransferase 27 U/L (0-41); Albumin Level 4.3 g/dL (3.5-5.2); Alcohol Level 242 mg/dL (0-10); Alkaline Phosphatase 106 IU/L (40-130); Aspartate Amino Transferase 32 U/L (0-40); Blood Urea Nitrogen 19 mg/dL (6-20); Carbon Dioxide 22 mmol/L (22-29); Chloride 100 mmol/L (98-107); Glucose 90 mg/dL (65-115); Osmolality Calculated 282 mOsm/kg (285-295); Salicylate 0.4 mg/dL (3-10); Sodium 138 mmol/L (136-145); Total Bilirubin 0.6 mg/dL (0.15-1.2); Total Protein 7.3 g/dL (6.6-8.7)
[2019-08-31 16:31] LABS: Lithium 0.2 mmol/L (0.6-1.2)
[2019-08-31 17:04] LABS: Amphetamines Screen Urine Negative (Negative); Barbiturates Screen Urine Negative (Negative); Benzodiazepines Screen Urine Negative (Negative); Cocaine Screen Urine Negative (Negative); Opiate Screen Urine Negative (Negative); PCP Screen Urine Negative (Negative); THC Screen Urine Negative (Negative)
[2019-08-31 18:43] VITALS: BP 130/82; PULSE 90; O2SAT 95
== END 2019-08-31 18:43 | disposition home or self-care (01) ==
PROVIDERS: Emergency Provider Emergency Medicine; PCP Family Medicine
DX: M25.521 Pain in right elbow (principal); F32.9 Major depressive disorder, single episode, unspecified; F10.129 Alcohol abuse with intoxication, unspecified; F17.200 Nicotine dependence, unspecified, uncomplicated
CPT/HCPCS: 12345; 36415; 73080; 80053; 80178; 80306; 80307; 85025; 99284

== ENCOUNTER 2019-09-01 01:25 | Inpatient (IN) | payer SELFPAY ==
[2019-09-01] VITALS (114 sets, daily range): BP systolic 113–158; BP diastolic 75–106; PULSE 68–98; RESP 14–29; TEMP 36.6–36.7; O2SAT 90–100; BMI 24.3
--- NOTE | 2019-09-01 01:30 | XR_ITS ---
WS: [id number] PORTABLE CHEST HISTORY: cough COMPARISON: 07/13/2019 Moderate pulmonary hyperinflation. Normal vasculature. No pneumonia. No pleural effusion or pneumotho rax. Cardiac size: Normal. Mediastinum/Aorta: Normal mediastinum. No osseous abnormality seen. XR/XR chest 1V portable [id number] IMPRESSION: Chronic emphysema. No pneumonia.
--- NOTE | 2019-09-01 01:31 | ECG_ITS ---
Measurements Intervals [place] Rate: 76 P: 61 CT: 152 QRS: 67 QRSD: 88 T: 71 QT: 398 QTc: 448 SINUS RHYTHM WITH SINUS ARRHYTHMIA EARLY REPOLARIZATION [ST ELEVATION WITH NORMALLY INFLECTED T WAVE] TALL T-WAVES, SUGGESTS HYPERKALEMIA Compared to ECG 07/13/2019 19:45:44 Early repolarization now present Sinus tachycardia no longer present Electronically Signed On 09-01-2019 19:23:49 CDT by Jaquan Lee M.D. [email or web address]
--- NOTE | 2019-09-01 01:32 | ED_ITS ---
HPI - General Adult General: Chief complaint: Anxiety Stated complaint: anxiety/ chest pain Time Seen by Provider: 09/01/19 01:26 History of Present Illness: HPI narrative: Israel is a 43-year-old male who comes in complaining of headache, jaw pain, chest pains and severe anxiety. Patient states that he was roughed up earlier today by the police. Claims of been here earlier today and had his elbow x-rayed. Patient states that since then he has been going home and all his symptoms are worsening. He feels very anxious. He admits to being an alcoholic and feels as though he is detoxing. Associated symptoms: Reports headache(s); Deny chest pain, confusion, diaphoresis, dyspnea, malaise, nausea, rash, palpitations, syncope or vomiting Review of Systems General: Reports: other (negative unless marked) Const: Denies: fever, chills, body aches, fatigue, malaise or diaphoresis Eyes: Denies: change in vision or blurry vision ENMT: Reports: mouth pain; Denies: throat pain, painful swallowing, hoarseness, ear pain, ear discharge, Change in hearing or nasal discharge Card: Denies: chest pain, palpitations, irregular heart rhythm, syncope, pre- syncope, shortness of breath on exertion or shortness of breath when lying down Resp: Denies: shortness of breath, productive cough, non-productive cough, wheezing, coughing up blood or chest congestion GI: Denies: abdominal pain, nausea, vomiting, vomiting blood, coffee grounds in vomit, diarrhea, constipation, cramping, blood in stool or black tarry stool : Denies: flank pain, difficulty urinating, painful urination, urinary frequency, urinary urgency, decreased urine ouput, urinary incontinence or blood in urine Musc: Reports: neck pain; Denies: back pain, extremity pain, extremity swelling, joint pain, joint swelling, joint warmth or joint stiffness Skin/Breast: Denies: rash, skin tenderness or yellow skin Neuro: Reports: headache; Denies: numbness in extremities, weakness in extremities, changes in sensation, vertigo or confusion Endo: Denies: excessive thirst, tired all the time, cold intolerance, excessive sweating, flushing or hot flashes Byron/Lymph: Denies: easy bruising, easy bleeding, petechiae or enlarged lymph nodes All/Imm: Denies: hives, throat swelling, tongue swelling, facial swelling or acute wheezing PFSH ED PFSH: Medical History (Updated 09/01/19 @ 04:38 by Priscilla Obando) Adjustment disorder with mixed disturbance of emotions and conduct Alcohol use disorder -Has known history of alcohol abuse&DT Bipolar 1 disorder, manic, mild Depressive disorder, not elsewhere classified Methamphetamine abuse -UDS positive for amphetamines/THC Surgical History H/O hernia repair History of appendectomy Family History Other Alcoholism /alcohol abuse Social History Smoking and tobacco status: current every day smoker Alcohol intake: current Current gender identity: Male Physical Exam Const: COMMON NORMALS: no apparent distress, oriented x3, no limitations, healthy appearing and well nourished EXAM LIMITATIONS: no altered mental st atus GENERAL APPEARANCE: cooperative, well kempt and well developed ORIENTATION/CONSCIOUSNESS: Yes awake HENMT: COMMON NORMALS: hearing grossly normal bilaterally, external ears normal, EAC's normal, external nose normal and moist oral mucous membranes HEAD & SCALP: normal to inspection and other (Contusions noted to head and jaw) FACE & SINUS: normal facial exam and face symmetric NOSE: external nose normal and nares normal EXTERNAL EAR: Yes external ears normal EXTERNAL AUDITORY CANAL: EAC's normal MOUTH: oral and palatal mucosa normal and tongue normal Eye: COMMON NORMALS: PERRL, EOMs intact bilaterally, conjunctivae normal and no scleral icterus GENERAL EYE: normal appearance of both eyes and normal light reflex CONJUNCTIVA: Yes conjunctivae normal SCLERA: sclerae normal CORNEA: Yes corneas normal PUPIL: Yes PERRL DIRECT OPHTHALMOSCOPY: Yes normal light reflex Neck/C-Spine: COMMON NORMALS: full ROM, no lymphadenopathy, supple, no meningeal signs and no JVD GENERAL: Yes normal visual inspection and Yes trachea midline CERVICAL SPINE: Yes cervical ROM normal Chest: COMMONS NORMALS: inspection of chest normal and palpation of chest normal Resp: COMMON NORMALS: normal respiratory effort, no retractions, no use of accessory muscles and clear to auscultation bilaterally EFFORT & INSPECTION: Yes able to speak in complete sentences AUSCULTATION: clear to auscultation bilaterally Cardio: COMMON NORMALS: no JVD, regular rate, regular rhythm, S1 normal heart sound, S2 normal heart sound, no gallops, no clicks, no murmurs and no rub JUGULAR VENOUS DISTENTION: no JVD RATE: regular rate RHYTHM: regular rhythm HEART SOUNDS: S1 normal and S2 normal GI: COMMON NORMALS: soft to palpation, non-tender, no hepatosplenomegaly and no masses INSPECTION: Yes normal to inspection PALPATION: Yes soft and Yes no hepatosplenomegaly : COMMON NORMALS: Yes no CVA tenderness BLADDER/KIDNEY EXAM: Yes no CVA tenderness Back/Pelvis: COMMON NORMALS: no CVA tenderness, thoracic and lumbar spine normal to inspection, no thoracic nor lumbar tenderness and thoraco-lumbar ROM normal Extremity: COMMON NORMALS: normal to inspection, full ROM, normal capillary refill, no joint enlargement, no clubbing, cyanosis or edema and no calf tenderness Neuro: COMMON NORMALS: oriented x3, CN's II-XII intact bilaterally, moves all extremities, no focal motor deficits and no sensory deficits noted MENINGEAL SIGNS: Yes no meningeal signs Psych: COMMON NORMALS: mental status grossly normal, thought process normal, cooperative, affect normal and speech normal APPEARANCE: Yes well kempt SPEECH: Yes normal speech THOUGHT PROCESS: normal thought process Skin: COMMON NORMALS: no rashes or lesions noted, skin turgor normal, no jaundice, no petechiae and no mottling GENERAL SKIN EXAM: no rashes or lesions noted and turgor normal Course Vital Signs: Vital signs: Vital Signs Temperature 97.8 F 09/01/19 01:28 Pulse Rate 98 09/01/19 03:40 Respiratory Rate 18 09/01/19 03:40 Blood Pressure 133/83 09/01/19 03:40 Pulse Oximetry 99 09/01/19 03:40 MDM - General Adult MDM Narrative: Medical decision making narrative: Patient at this time still claims to have seizures and severe shaking hallucinations when he detoxes. He is requesting admission for detox. The patient does not believe he can do this at home. I have reviewed the case in full with Dr. Ledezma, he is agreeable to admission for observation and treatment. Lab Data: Labs: Lab Results 03/31/20 03/31/20 03/31/20 Range/Units 01:40 01:40 01:40 WBC 8.2 (4.0-10.0) 10^3/ uL RBC 4.15 (4.1-5.3) 10^6/u L Hgb 15.4 (11.7-16.6) g/dL Hct 46.1 (42.0-52.0) % MCV 111.1 H (80-94) fL MCH 37.1 H (28.0-34.0) pg MCHC 33.4 (30.0-36.0) g/dL RDW 12.4 (12.1-15.1) % Plt Count 262 (130-400) 10^3/c mm MPV 9.2 (7.4-10.4) fL Neut % (Auto) 69.9 % Lymph % (Auto) 19.1 % [place] % (Auto) 9.5 % Eos % (Auto) 0.9 % Baso % (Auto) 0.2 % Neut # (Auto) 5.8 (1.8-7.7) 10^3/u L Lymph # (Auto) 1.6 (0.8-4.8) 10^3/u L [place] # (Auto) 0.8 (0.2-0.9) 10^3/u L Eos # (Auto) 0.1 (0.0-0.8) 10^3/u L Baso # (Auto) 0.0 (0.0-0.1) 10^3/u L Nucleated RBC % (a uto) 0 % Nucleated RBCs # 0.0 /100WBC PT 12.40 (10.5-13.3) SECO NDS INR 0.92 (0.8-1.2) Sodium 134 L (136-145) mmol/L Potassium 3.8 (3.5-5.1) mmol/L Chloride 98 (98-107) mmol/L Carbon Dioxide 22 (22-29) mmol/L Anion Gap 17.8 (5-19) BUN 15 (6-20) mg/dL Creatinine 0.6 L (0.7-1.2) mg/dL GFR Calculation 147.8 H (90-130) mL/min Glucose 95 (65-115) mg/dL Calculated Osmolal ity 274 L (285-295) mOsm/k g Calcium 9.2 (8.5-10.5) mg/dL Magnesium 2.1 (1.7-2.3) mg/dL Total Bilirubin 0.5 (0.15-1.2) mg/dL AST 31 (0-40) U/L ALT 26 (0-41) U/L Alkaline Phosphata se 104 (40-130) IU/L Creatine Kinase 478 H* (39-308) U/L Troponin T Baselin e (0-15) ng/mL Troponin T 120 Min [place] (0-15) ng/mL Delta Troponin T (0-10) ABS# Total Protein 7.4 (6.6-8.7) g/dL Albumin 4.3 (3.5-5.2) g/dL Globulin 3.1 (1.3-4.6) g/dL Lipase 37 (13-60) U/L TSH 2.39 (0.27-4.20) uIU/ mL Urine Color (Yellow) Urine Appearance (CLEAR) Urine pH (5-7) Ur Specific Gravit y (1.005-1.030) Urine Protein (Negative) Urine Glucose (UA) (Normal) Urine Ketones (Negative) Urine Blood (Negative) Urine Nitrate (Negative) Urine Bilirubin (NEGATIVE) Urine Urobilinogen (Negative) mg/dL Ur Leukocyte [place] (Negative) Urine RBC (0-2) /hpf Urine WBC (0-5) /hpf Ur Squamous Epith Cells (0-5) Ur Transition Epit h Cell /hpf Ur Renal Epithelia l Cell /hpf Urine Bacteria (NONE) Salicylates < 0.3 L (3-10) mg/dL Urine Opiates Scre en (Negative) ng/mL Acetaminophen < 5.0 L (10-30) ug/mL Ur Barbiturates Sc reen (Negative) ng/mL Phenytoin 0.8 L (10-20) ug/mL Valproic Acid 2.8 L (50-100) mcg/mL Carbamazepine 2.0 L (4.0-12.0) ug/mL Ur Phencyclidine S crn (Negative) ng/mL Ur Amphetamines Sc reen (Negative) ng/mL U Benzodiazepines Scrn (Negative) ng/mL [place] (0.6-1.2) mmol/L Urine Cocaine Scre en (Negative) ng/mL U Marijuana (THC) Screen (Negative) ng/mL Ethyl Alcohol < 10 (0-10) mg/dL 09/01/19 09/01/19 09/01/19 Range/Units 01:40 01:40 02:30 WBC (4.0-10.0) 10^3/ uL RBC (4.1-5.3) 10^6/u L Hgb (11.7-16.6) g/dL Hct (42.0-52.0) % MCV (80-94) fL MCH (28.0-34.0) pg MCHC (30.0-36.0) g/dL RDW (12.1-15.1) % Plt Count (130-400) 10^3/c mm MPV (7.4-10.4) fL Neut % (Auto) % Lymph % (Auto) % [place] % (Auto) % Eos % (Auto) % Baso % (Auto) % Neut # (Auto) (1.8-7.7) 10^3/u L Lymph # (Auto) (0.8-4.8) 10^3/u L [place] # (Auto) (0.2-0.9) 10^3/u L Eos # (Auto) (0.0-0.8) 10^3/u L Baso # (Auto) (0.0-0.1) 10^3/u L Nucleated RBC % (a uto) % Nucleated RBCs # /100WBC PT (10.5-13.3) SECO NDS INR (0.8-1.2) Sodium (136-145) mmol/L Potassium (3.5-5.1) mmol/L Chloride (98-107) mmol/L Carbon Dioxide (22-29) mmol/L Anion Gap (5-19) BUN (6-20) mg/dL Creatinine (0.7-1.2) mg/dL GFR Calculation (90-130) mL/min Glucose (65-115) mg/dL Calculated Osmolal ity (285-295) mOsm/k g Calcium (8.5-10.5) mg/dL Magnesium (1.7-2.3) mg/dL Total Bilirubin (0.15-1.2) mg/dL AST (0-40) U/L ALT (0-41) U/L Alkaline Phosphata se (40-130) IU/L Creatine Kinase (39-308) U/L Troponin T Baselin e 10 (0-15) ng/mL Troponin T 120 Min [place] (0-15) ng/mL Delta Troponin T (0-10) ABS# Total Protein (6.6-8.7) g/dL Albumin (3.5-5.2) g/dL Globulin (1.3-4.6) g/dL Lipase (13-60) U/L TSH (0.27-4.20) uIU/ mL Urine Color Yellow (Yellow) Urine Appearance Clear (CLEAR) Urine pH 6.5 (5-7) Ur Specific Gravit y 1.030 (1.005-1.030) Urine Protein Trace (Negative) Urine Glucose (UA) Trace H (Normal) Urine Ketones Negative (Negative) Urine Blood Neg (Negative) Urine Nitrate Positive H (Negative) Urine Bilirubin Neg (NEGATIVE) Urine Urobilinogen Norm (Negative) mg/dL Ur Leukocyte [place] Trace H (Negative) Urine RBC 0-4 H (0-2) /hpf Urine WBC 0-4 H (0-5) /hpf Ur Squamous Epith Cells 0-4 H (0-5) Ur Transition Epit h Cell None /hpf Ur Renal Epithelia l Cell N /hpf Urine Bacteria 1+ H (NONE) Salicylates (3-10) mg/dL Urine Opiates Scre en (Negative) ng/mL Acetaminophen (10-30) ug/mL Ur Barbiturates Sc reen (Negative) ng/mL Phenytoin (10-20) ug/mL Valproic Acid (50-100) mcg/mL Carbamazepine (4.0-12.0) ug/mL Ur Phencyclidine S crn (Negative) ng/mL Ur Amphetamines Sc reen (Negative) ng/mL U Benzodiazepines Scrn (Negative) ng/mL [place] 0.1 L (0.6-1.2) mmol/L Urine Cocaine Scre en (Negative) ng/mL U Marijuana (THC) Screen (Negative) ng/mL Ethyl Alcohol (0-10) mg/dL 09/01/19 09/01/19 Range/Units 02:30 03:28 WBC (4.0-10.0) 10^3/ uL RBC (4.1-5.3) 10^6/u L Hgb (11.7-16.6) g/dL Hct (42.0-52.0) % MCV (80-94) fL MCH (28.0-34.0) pg MCHC (30.0-36.0) g/dL RDW (12.1-15.1) % Plt Count (130-400) 10^3/c mm MPV (7.4-10.4) fL Neut % (Auto) % Lymph % (Auto) % [place] % (Auto) % Eos % (Auto) % Baso % (Auto) % Neut # (Auto) (1.8-7.7) 10^3/u L Lymph # (Auto) (0.8-4.8) 10^3/u L [place] # (Auto) (0.2-0.9) 10^3/u L Eos # (Auto) (0.0-0.8) 10^3/u L Baso # (Auto) (0.0-0.1) 10^3/u L Nucleated RBC % (a uto) % Nucleated RBCs # /100WBC PT (10.5-13.3) SECO NDS INR (0.8-1.2) Sodium (136-145) mmol/L Potassium (3.5-5.1) mmol/L Chloride (98-107) mmol/L Carbon Dioxide (22-29) mmol/L Anion Gap (5-19) BUN (6-20) mg/dL Creatinine (0.7-1.2) mg/dL GFR Calculation (90-130) mL/min Glucose (65-115) mg/dL Calculated Osmolal ity (285-295) mOsm/k g Calcium (8.5-10.5) mg/dL Magnesium (1.7-2.3) mg/dL Total Bilirubin (0.15-1.2) mg/dL AST (0-40) U/L ALT (0-41) U/L Alkaline Phosphata se (40-130) IU/L Creatine Kinase (39-308) U/L Troponin T Baselin e (0-15) ng/mL Troponin T 120 Min [place] 11.20 (0-15) ng/mL Delta Troponin T 1.20 (0-10) ABS# Total Protein (6.6-8.7) g/dL Albumin (3.5-5.2) g/dL Globulin (1.3-4.6) g/dL Lipase (13-60) U/L TSH (0.27-4.20) uIU/ mL Urine Color (Yellow) Urine Appearance (CLEAR) Urine pH (5-7) Ur Specific Gravit y (1.005-1.030) Urine Protein (Negative) Urine Glucose (UA) (Normal) Urine Ketones (Negative) Urine Blood (Negative) Urine Nitrate (Negative) Urine Bilirubin (NEGATIVE) Urine Urobilinogen (Negative) mg/dL Ur Leukocyte [place] (Negative) Urine RBC (0-2) /hpf Urine WBC (0-5) /hpf Ur Squamous Epith Cells (0-5) Ur Transition Epit h Cell /hpf Ur Renal Epithelia l Cell /hpf Urine Bacteria (NONE) Salicylates (3-10) mg/dL Urine Opiates Scre en Negative (Negative) ng/mL Acetaminophen (10-30) ug/mL Ur Barbiturates Sc reen Negative (Negative) ng/mL Phenytoin (10-20) ug/mL Valproic Acid (50-100) mcg/mL Carbamazepine (4.0-12.0) ug/mL Ur Phencyclidine S crn Negative (Negative) ng/mL Ur Amphetamines Sc reen Negative (Negative) ng/mL U Benzodiazepines Scrn Negative (Negative) ng/mL [place] (0.6-1.2) mmol/L Urine Cocaine Scre en Negative (Negative) ng/mL U Marijuana (THC) Screen Negative (Negative) ng/mL Ethyl Alcohol (0-10) mg/dL Imaging Data^: CT Head: Radiologist's impression: [facility] [address] [address] [address] Scan Report Signed Patient: Israel Gordon Unit #: [id number] : 1975 Age/Sex: 43 / M ADM Date: 09/01/19 Loc: ER Room/Bed: Attending Dr: Ordering Provider/Ordering MD: Priscilla Obando DO Date of Service: 09/01/19 Procedure(s): CT head wo con* [id number] Accession Number(s): [id number] Report Number: [id number] PROCEDURE INFORMATION: Exam: CT Head Without Contrast Exam date and time: 09/01/2019 3:23 AM Age: 43 years old Clinical indication: Altered mental status/memory loss; Confusion or disorientation; Additional info: Hirsch/ams TECHNIQUE: Imaging protocol: Computed tomography of the head without contrast. Total DLP: 1387.72 mGy-cm Radiation optimization: All CT scans at this facility use at least one of these dose optimization techniques: automated exposure control; mA and/or kV adjustment per patient size (includes targeted exams where dose is matched to clinical indication); or iterative reconstruction. COMPARISON: CT head wo con* [id number] 07/13/2019 1:16 PM FINDINGS: Brain: No hemorrhage. No edema, mass effect or midline shift. Ventricles: No ventriculomegaly. Bones/joints: No acute fracture. Sinuses: No acute sinusitis. Mastoid air cells: No mastoid effusion. Soft tissues: Unremarkable. CT/CT head wo con* [id number] IMPRESSION: No acute intracranial abnormality. Radiation Dose CTDIVOL = (mGy): DLP = 1387.72 (mGy-cm) Dictated By: Kita Eller MD Signed By: Kita Eller MD Signed Date/Time: 09/01/19405 DD/ [address]: Radiologist's impression: [place] [address] CT Scan Report Signed Patient: Israel Gordon Unit #: [id number] : [id number] Age/Sex: 43 / M ADM Date: 09/01/19 Loc: ER Room/Bed: Attending Dr: Ordering Provider/Ordering MD: Priscilla Obando DO Date of Service: 09/01/19 Procedure(s): CT cervical spin wo con* [id number] Accession Number(s): [id number] Report Number: [id number] PROCEDURE INFORMATION: Exam: CT Cervical Spine Without Contrast Exam date and time: 09/01/2019 3:29 AM Age: 43 years old Clinical indication: Neck pain TECHNIQUE: Imaging protocol: Computed tomography images of the cervical spine without contrast. Total DLP: 543.45 mGy-cm Radiation optimization: All CT scans at this facility use at least one of these dose optimization techniques: automated exposure control; mA and/or kV adjustment per patient size (includes targeted exams where dose is matched to clinical indication); or iterative reconstruction. COMPARISON: No relevant prior studies available. FINDINGS: Vertebrae: No acute fracture. No malalignment. Discs/Spinal canal/Neural foramina: Mild degenerative disc space narrowing endplate spurring at C4-C5 and C5-C6. Soft tissues: Unremarkable. Lungs: Lung apices are normal. CT/CT cervical spin wo con* [id number] IMPRESSION: No acute fracture. Radiation Dose CTDIVOL = (mGy): DLP = 543.45 (mGy-cm) Dictated By: Kita Eller MD Signed By: Kita Eller MD Signed Date/Time: 09/01/19405 DD/ 3 CT FACIAL BONES: Radiologist's impression: [place] [address] CT Scan Report Signed Patient: Israel Gordon Unit #: [id number] : 1975 Age/Sex: 43 / M ADM Date: 09/01/19 Loc: ER Room/Bed: Attending Dr: Ordering Provider/Ordering MD: Priscilla Obando DO Date of Service: 09/01/19 Procedure(s): CT facial bones wo con* [id number] Accession Number(s): [id number] Report Number: [id number] PROCEDURE INFORMATION: Exam: CT Maxillofacial Without Contrast Exam date and time: 09/01/2019 3:23 AM Age: 43 years old Clinical indication: Jaw pain TECHNIQUE: Imaging protocol: Computed tomography images of the face without contrast. Total DLP: 1672.83 mGy-cm Radiation optimization: All CT scans at this facility use at least one of these dose optimization techniques: automated exposure control; mA and/or kV adjustment per patient size (includes targeted exams where dose is matched to clinical indication); or iterative reconstruction. COMPARISON: No relevant prior studies available. FINDINGS: Orbits: Orbits are normal. Globes are unremarkable. Bones/joints: Age-indeterminate nasal fractures. Remaining bony structures of the face are intact. Sinuses: Chronic appearing opacification of the left maxillary sinus. Soft tissues: Remaining facial structures are intact. CT/CT facial bones wo con* [id number] IMPRESSION: Age-indeterminate nasal fractures. Radiation Dose CTDIVOL = (mGy): DLP = 1672.83 (mGy-cm) Dictated By: Kita Eller MD Signed By: Kita Eller MD Signed Date/Time: 09/01/19411 DD/ 9 CXR: My impression: No acute cardiopulmonary findings. EKG Data^: EKG 1: Attestation: I personally reviewed and interpreted this EKG as follows: EKG interpretation date: 09/01/19 EKG interpretation time: 01:45 Interpretation: Normal sinus rhythm at 93 beats a minute, nonspecific ST and T wave changes. Computer generated interpretation: Head CT 09/01/19 02:37 IMPRESSION: No acute intracranial abnormality. Radiation Dose CTDIVOL = (mGy): DLP = 1387.72 (mGy-cm) Face CT 09/01/19 02:59 IMPRESSION: Age-indeterminate nasal fractures. Radiation Dose CTDIVOL = (mGy): DLP = 1672.83 (mGy-cm) Cervical Spine CT 09/01/19 03:28 IMPRESSION: No acute fracture. Radiation Dose CTDIVOL = (mGy): DLP = 543.45 (mGy-cm) EKG 2: Attestation: I personally reviewed and interpreted this EKG as follows: EKG interpretation date: 09/01/19 EKG interpretation time: 03:35 Interpretation: Normal sinus rhythm at 90 beats a minute, no acute ST or T wave changes. Computer generated interpretation: Head CT 09/01/19 02:37 IMPRESSION: No acute intracranial abnormality. Radiation Dose CTDIVOL = (mGy): DLP = 1387.72 (mGy-cm) Face CT 09/01/19 02:59 IMPRESSION: Age-indeterminate nasal fractures. Radiation Dose CTDIVOL = (mGy): DLP = 1672.83 (mGy-cm) Cervical Spine CT 09/01/19 03:28 IMPRESSION: No acute fracture. Radiation Dose CTDIVOL = (mGy): DLP = 543.45 (mGy-cm) Discharge Plan Discharge Patient Disposition: Admitted As Inpatient Clinical Impression: Alcohol withdrawal delirium Condition: Stable Prescriptions: No Action trazodone 100 mg Tablet 100 mg PO BEDTIME 30 Days Qty: 30 RF: 1 lithium carbonate 300 mg Capsule 300 mg PO BEDTIME 30 Days Qty: 30 RF: 1 lithium carbonate 300 mg Capsule 300 mg PO BID 30 Days Qty: 60 RF: 1 propranolol 20 mg Tablet 20 mg PO TID PRN (Reason: Anxiety) 30 Days Qty: 30 RF: 1 fluoxetine 20 mg Capsule 20 mg PO DAILY 30 Days Qty: 30 RF: 1 Referrals: Isabel Urbina MD [Primary Care Provider] - Coding Level of Care Code ED Sparmaker for Chg Fwd Exam Comprehensive
[2019-09-01] MEDS: LORazepam 2 mg/mL INJ 1 mL 1 MG IVP ×2 (01:46→02:43)
[2019-09-01] MEDS: ondansetron 2 mg/ML SDV 2 mL 4 MG IVP (01:46)
[2019-09-01 01:54] LABS: Basophils % 0.2 %; Eosinophils # 0.1 10^3/uL (0.0-0.8); Eosinophils % 0.9 %; Hematocrit 46.1 % (42.0-52.0); Hemoglobin 15.4 g/dL (11.7-16.6); Lymphocytes # 1.6 10^3/uL (0.8-4.8); Lymphocytes % 19.1 %; Mean Corpuscular HGB Conc 33.4 g/dL (30.0-36.0); Mean Corpuscular Hemoglobin 37.1 pg (28.0-34.0); Mean Corpuscular Volume 111.1 fL (80-94); Mean Platelet Volume 9.2 fL (7.4-10.4); Monocytes # 0.8 10^3/uL (0.2-0.9); Monocytes % 9.5 %; Neutrophils # 5.8 10^3/uL (1.8-7.7); Neutrophils % 69.9 %; Nucleated Red Blood Cells % 0 %; Platelet Count 262 10^3/cmm (130-400); Red Blood Count 4.15 10^6/uL (4.1-5.3); Red Cell Distribution Width 12.4 % (12.1-15.1); White Blood Count 8.2 10^3/uL (4.0-10.0)
[2019-09-01] MEDS: folic acid 1 MG, multivitamin inj 10 ML, thiamine 100 MG in sodium chloride 0.9% 1,000 ML 252.8 MG IV (01:57)
[2019-09-01 02:12] LABS: Troponin(5th) Baseline 10 ng/mL (0-15)
[2019-09-01 02:16] LABS: Lithium 0.1 mmol/L (0.6-1.2)
[2019-09-01 02:18] LABS: INR 0.92 (0.8-1.2)
[2019-09-01 02:19] LABS: Alanine Aminotransferase 26 U/L (0-41); Albumin Level 4.3 g/dL (3.5-5.2); Alkaline Phosphatase 104 IU/L (40-130); Anion Gap 17.8 (5-19); Aspartate Amino Transferase 31 U/L (0-40); Blood Urea Nitrogen 15 mg/dL (6-20); Calcium 9.2 mg/dL (8.5-10.5); Carbon Dioxide 22 mmol/L (22-29); Chloride 98 mmol/L (98-107); Globulin 3.1 g/dL (1.3-4.6); Glomerular Filtration Rate 147.8 mL/min (90-130); Glucose 95 mg/dL (65-115); Lipase 37 U/L (13-60); Magnesium 2.1 mg/dL (1.7-2.3); Osmolality Calculated 274 mOsm/kg (285-295); Phenytoin Dilantin 0.8 ug/mL (10-20); Potassium 3.8 mmol/L (3.5-5.1); Sodium 134 mmol/L (136-145); Thyroid Stimulating Hormone 2.39 uIU/mL (0.27-4.20); Total Bilirubin 0.5 mg/dL (0.15-1.2); Total Protein 7.4 g/dL (6.6-8.7); Valproic Acid Level 2.8 mcg/mL (50-100)
[2019-09-01 02:20] LABS: Acetaminophen < 5.0 ug/mL (10-30); Alcohol Level < 10 mg/dL (0-10); Creatine Phosphokinase 478 U/L (39-308); Salicylate < 0.3 mg/dL (3-10)
--- NOTE | 2019-09-01 02:37 | CTR_ITS ---
PROCEDURE INFORMATION: Exam: CT Head Without Contrast Exam date and time: 09/01/2019 3:23 AM Age: 43 years old Clinical indication: Altered mental status/memory loss; Confusion or disorientation; Additional info: Hirsch/ams TECHNIQUE: Imaging protocol: Computed tomography of the head without contrast. Total DLP: 1387.72 mGy-cm Radiation optimization: All CT scans at this facility use at least one of these dose optimization techniques: automated exposure control; mA and/or kV adjustment per patient size (includes targeted exams where dose is matched to clinical indication); or iterative reconstruction. COMPARISON: CT head wo con* [id number] 07/13/2019 1:16 PM FINDINGS: Brain: No hemorrhage. No edema, mass effect or midline shift. Ventricles: No ventriculomegaly. Bones/joints: No acute fracture. Sinuses: No acute sinusitis. Mastoid air cells: No mastoid effusion. Soft tissues: Unremarkable. CT/CT head wo con* [id number] IMPRESSION: No acute intracranial abnormality. Radiation Dose CTDIVOL = (mGy): DLP = 1387.72 (mGy-cm)
[2019-09-01 02:45] LABS: Amphetamines Screen Urine Negative (Negative); Barbiturates Screen Urine Negative (Negative); Benzodiazepines Screen Urine Negative (Negative); Cocaine Screen Urine Negative (Negative); Opiate Screen Urine Negative (Negative); PCP Screen Urine Negative (Negative); THC Screen Urine Negative (Negative)
--- NOTE | 2019-09-01 02:59 | CTR_ITS ---
PROCEDURE INFORMATION: Exam: CT Maxillofacial Without Contrast Exam date and time: 09/01/2019 3:23 AM Age: 43 years old Clinical indication: Jaw pain TECHNIQUE: Imaging protocol: Computed tomography images of the face without contrast. Total DLP: 1672.83 mGy-cm Radiation optimization: All CT scans at this facility use at least one of these dose optimization techniques: automated exposure control; mA and/or kV adjustment per patient size (includes targeted exams where dose is matched to clinical indication); or iterative reconstruction. COMPARISON: No relevant prior studies available. FINDINGS: Orbits: Orbits are normal. Globes are unremarkable. Bones/joints: Age-indeterminate nasal fractures. Remaining bony structures of the face are intact. Sinuses: Chronic appearing opacification of the left maxillary sinus. Soft tissues: Remaining facial structures are intact. CT/CT facial bones wo con* [id number] IMPRESSION: Age-indeterminate nasal fractures. Radiation Dose CTDIVOL = (mGy): DLP = 1672.83 (mGy-cm)
[2019-09-01 03:09] LABS: Glucose Urine UA Trace (Normal); Protein Urine Trace (Negative); Urine Appearance Clear (CLEAR); Urine Color Yellow (Yellow); pH Urine 6.5 (5-7)
[2019-09-01 03:10] LABS: Bilirubin Urine Neg (NEGATIVE); Blood Urine Neg (Negative); Ketones Urine Negative (Negative); Leukocyte Esterase Urine Trace (Negative); Nitrate Urine Positive (Negative); Urobilinogen Urine Norm (Negative)
[2019-09-01 03:11] LABS: Add Urine Culture? Yes; Bacteria Urine 1+; RBC Urine 0-4 /hpf (0-2); Renal Epithelial Cells Urine N /hpf; Squamous Epithelial Cell Urine 0-4 (0-5); WBC Urine 0-4 /hpf (0-5)
--- NOTE | 2019-09-01 03:28 | CTR_ITS ---
PROCEDURE INFORMATION: Exam: CT Cervical Spine Without Contrast Exam date and time: 09/01/2019 3:29 AM Age: 43 years old Clinical indication: Neck pain TECHNIQUE: Imaging protocol: Computed tomography images of the cervical spine without contrast. Total DLP: 543.45 mGy-cm Radiation optimization: All CT scans at this facility use at least one of these dose optimization techniques: automated exposure control; mA and/or kV adjustment per patient size (includes targeted exams where dose is matched to clinical indication); or iterative reconstruction. COMPARISON: No relevant prior studies available. FINDINGS: Vertebrae: No acute fracture. No malalignment. Discs/Spinal canal/Neural foramina: Mild degenerative disc space narrowing endplate spurring at C4-C5 and C5-C6. Soft tissues: Unremarkable. Lungs: Lung apices are normal. CT/CT cervical spin wo con* [id number] IMPRESSION: No acute fracture. Radiation Dose CTDIVOL = (mGy): DLP = 543.45 (mGy-cm)
--- NOTE | 2019-09-01 03:31 | ECG_ITS ---
Measurements Intervals [place] Rate: 90 P: 48 [place]: 145 QRS: 66 QRSD: 86 T: 65 QT: 364 QTc: 447 SINUS RHYTHM Compared to ECG 07/13/2019 19:45:44 Sinus tachycardia no longer present Electronically Signed On 09-01-2019 19:24:33 CDT by Jaquan Lee M.D. [email or web address]
--- NOTE | 2019-09-01 03:49 | PC.NURSE ---
pt to ct via stretcher at this time.
--- NOTE | 2019-09-01 04:01 | PC.NURSE ---
pt back from CT at this time.
--- NOTE | 2019-09-01 04:33 | PM.HP ---
Providers/Chief Complaint Primary Care Provider: Isabel Urbina MD Chief Complaint: anxiety/ chest pain History of Present Illness Israel Gordon is a 43 year old male who has history of alcohol abuse, methamphetamine and polysubstance abuse, alcohol withdrawal, DTs came in with chief complaint of agitation, headache. Of note, patient was admitted 1 month ago with similar complaints, he was seen by Dr. Em who prescribed with him for bipolar disorder. Today this is his second visit, first visit was in the morning when he came for elbow pain, he was accompanied by the police, no fractures were noticed on imaging, chronic nasal fracture was seen he was discharged from the ER after evaluation by Dr. Em. He came back this morning because of increased agitation. Patient is stating that he is going through withdrawal and wants help. He is not a reliable historian. He has been given benzodiazepine, not able to give me all the details. He is endorsing to drinking tequila every day, when he was questioned about the quantity he said quite a bit. Diagnostics in ER revealed normal blood work, no acute fractures on imaging, no electrolyte abnormalities, alcohol level nondetectable, When I was interviewing him his heart rate was sinus rhythm fluctuated between 80-82, blood pressure 142/80mmhg,, saturating well on room air, he appeared very anxious Review of Systems General: Reports: ROS unobtainable due to medical condition (Alcohol withdrawal ) Medications/Allergies Allergies Allergy/AdvReac Type Severity Reaction Status Date / Time No Known Allergies Allergy Verified 08/31/19 15:28 PFSH Acute PFSH: Medical History Adjustment disorder with mixed disturbance of emotions and conduct Alcohol use disorder -Has known history of alcohol abuse&DT Bipolar 1 disorder, manic, mild Depressive disorder, not elsewhere classified Methamphetamine abuse -UDS positive for amphetamines/THC Surgical History H/O hernia repair History of appendectomy Family History Other Alcoholism /alcohol abuse Social History (Updated 09/01/19 @ 05:06 by Jaquan Ledezma MD) Smoking and tobacco status: current every day smoker Alcohol intake: current Alcohol use comment: Drinks tequila every day Substance/Drug Use: current Substance/Drug use type: Marijuana and Methamphetamine Current gender identity: Male Vitals/I&O/Wt Last Vital Signs Temp 97.8 F 09/01/19 01:28 Pulse 98 09/01/19 03:40 Resp 18 09/01/19 03:40 BP 133/83 09/01/19 03:40 Pulse Ox 99 09/01/19 03:40 Weight last 48 hrs Weight 77.111 kg Physical Exam Narrative: EXAM NARRATIVE: This is a young male who appears to be in severe agitation Mild tremors of extremities Appropriate grooming S1, S2 no signs of tachycardia Skin is cold and clammy without any signs of ischemia gangrene or ulcer Abdomen soft, nontender, bowel sound present Neurological status not able to be examined because of alcohol withdrawal however gross movements are intact, patient is able to follow commands and answer appropriately few of my questions, he seems to be having hallucination, not sure about confabulation at this point Lungs are clear to auscultation bilaterally Very anxious mood Data : 09/01/19 01:40 09/01/19 01:40 A&P Assessment and plan (1) Alcohol withdrawal delirium: Status: Acute (2) Depression: Status: Acute (3) Pain in right elbow: Status: Acute (4) Bipolar 1 disorder, manic, mild: Status: Acute Additional A&P Information Alcohol withdrawal Alcohol level nondetectable, he is not able to tell me when nurses last drink of alcohol, review of records revealed history of DTs and suicidal ideation [facility] protocol, Admit to ICU, currently able to protect his airways, high risk for intubation, Mildly elevated CPK, continue IV hydration Bipolar disorder: He was on lithium prescribed by Dr. Em, will check lithium level and hold for now DVT prophylaxis: Lovenox Diet: Clear liquid Full code Attestations Medical Necessity Statement*: Needs inpatient stay because of active detoxification/alcohol withdrawal, has history of DTs needs ICU monitoring Time Spent in Patient Care: 35 Coding Level of Care Code Acute Governor Assembler for [facility] Diagnoses Alcohol withdrawal delirium F10.231 Depression F32.9 Pain in right elbow M25.521 Bipolar 1 disorder, manic, mild F31.11
[2019-09-01] MEDS: dextrose 5%-sod chloride 0.45% 1,000 ML 150 ML IV (05:34)
[2019-09-01] MEDS: enoxaparin 40 mg/0.4 mL Syringe SUBCUT (05:35)
--- NOTE | 2019-09-01 07:31 | ECG_ITS ---
Measurements Intervals [place] Rate: 93 P: 44 AK: 140 QRS: 61 QRSD: 75 T: 64 QT: 335 QTc: 418 SINUS RHYTHM SEPTAL MYOCARDIAL INFARCTION , OF INDETERMINATE AGE [40+ ms Q WAVE IN V1/V2] Compared to ECG 07/13/2019 19:45:44 Myocardial infarct finding now present Sinus tachycardia no longer present Electronically Signed On 09-01-2019 19:24:15 CDT by Jaquan Lee M.D. [email or web address]
[2019-09-01] MEDS: multivitamin therapeutic Tablet 1 TAB PO (08:30)
[2019-09-01] MEDS: thiamine 100 mg Tablet PO (08:30)
[2019-09-01] MEDS: folic acid 1 mg Tablet PO (08:30)
[2019-09-01 08:36] LABS: Troponin 5 6HR 11.39 ng/mL (0-15); Troponin 5 6HR Delta 1.39 ng/L (0-12)
--- NOTE | 2019-09-01 12:15 | PM.PN ---
Subjective Subjective: Interval history: Admitted overnight. Labs and H&P noted. No acute events overnight. This morning on examination is sleeping comfortably in bed. No agitation since admission. Vitals have remained stable with mean arterial pressure over 65 mmHg. Patient has remained afebrile. Vitals/I&O/Wt Last Vital Signs Temp 98.1 F 09/01/19 09:58 Pulse 81 09/01/19 11:50 Resp 20 H 09/01/19 11:50 BP 126/88 09/01/19 11:50 Pulse Ox 97 09/01/19 11:50 08/31/19 09/01/19 09/01/19 22:59 06:59 14:59 Intake Total 1011.2 / 1011.2 240 / 240 Balance 1011.2 / 1011.2 240 / 240 Weight last 48 hrs Weight 77.111 kg Physical Exam Narrative: EXAM NARRATIVE: General: Sleeping but arousable, AO x3 on arousal Cardiovascular: S1, S2 no signs of tachycardia, no murmurs, no gallops Lungs: Clear to auscultation bilaterally, normal vesicular breath sounds bilaterally Skin is cold and clammy without any signs of ischemia gangrene or ulcer Abdomen: Soft, nontender, bowel sound present Neurologica: AO x3 when awoken, moving all limbs spontaneously, GCS E3 M5V5, following simple commands. No visual tremors. Very anxious mood Data : 09/01/19 01:40 09/01/19 01:40 A&P Assessment and plan (1) Bipolar 1 disorder, manic, mild: Status: Acute (2) Alcohol withdrawal delirium: Status: Acute (3) Depression: Status: Acute (4) Pain in right elbow: Status: Acute (5) UTI (urinary tract infection): Status: Acute Additional A&P Information Bipolar disorder: Case discussed with Dr. Em. His symptoms are most likely due to bipolar disorder. [place] levels noted. Start patient back on home dose of lithium 300 mg twice daily and at bedtime. Alcohol withdrawal: CIWA?5 Alcohol levels undetectable on admission. Urine drug screen noted. Continue Ativan as per CIWA protocol. If patient is agitated can use Precedex. At present protecting his airway. Mild rhabdomyolysis: Mildly elevated CPK, continue IV hydration. Check CPK level tomorrow morning. UTI: Urine studies suggestive of mild UTI. Start patient on Rocephin. Will de-escalate antibiotics as per urine cultures. Depression: c/w home dose of fluoxetiene DVT prophylaxis: Lovenox Diet: Clear liquid advance to regular diet when more awake. Full code Attestations Medical Necessity Statement*: alcohol withdrawal, rhabo, bipolar Time Spent in Patient Care: Greater than 35 minutes Coding Level of Care Code Acute Senior Risk Analyst for [facility] Fwd Diagnoses Bipolar 1 disorder, manic, mild F31.11 Alcohol withdrawal delirium F10.231 Depression F32.9 Pain in right elbow M25.521 UTI (urinary tract infection) N39.0
[2019-09-01] MEDS: sodium chloride 0.9% 1,000 ML 100 ML IV ×2 (12:17→21:46)
[2019-09-01] MEDS: cefTRIAXone 1,000 MG in sodium chloride 0.9% (plus) 50 ML 100 MG IV (12:18)
[2019-09-01] MEDS: acetaminophen 325 mg Tablet 650 MG PO ×2 (12:24→17:17)
[2019-09-01] MEDS: LORazepam 2 mg Tablet PO (17:17)
[2019-09-01] MEDS: lithium carbonate 300 mg Capsule PO ×2 (17:18→21:46)
[2019-09-01] MEDS: LORazepam 2 mg/mL INJ 1 mL IVP ×3 (19:23→23:41)
--- NOTE | 2019-09-01 23:44 | PC.NURSE ---
nurse informed patient earlier in shift to use call light on bed if needed to get out of bed. nurse entered the room and patient was up in the bathroom by himself. patient had unhooked self from monitors and IV fluids. patient changed into hospital pants per request. 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 this nurse labeled in biohazard bag and placed at nurses station. nurse re-informed patient that call light is needed to be used if patient needs to get it. bed alarm set on bed.
[2019-09-02] VITALS (80 sets, daily range): BP systolic 112–138; BP diastolic 78–108; PULSE 62–89; RESP 13–29; TEMP 36.7; O2SAT 95–99
--- NOTE | 2019-09-02 01:02 | PC.NURSE ---
patients called and asked about patient status. nurse spoke with patient and patient gave permission to give information over the phone to . patients was slurring words and sounded inebriated. properties supervisor informed and spoke with .
[2019-09-02 04:53] LABS: Basophils % 0.2 %; Eosinophils # 0.1 10^3/uL (0.0-0.8); Eosinophils % 2.2 %; Hemoglobin 14.3 g/dL (11.7-16.6); Lymphocytes # 1.6 10^3/uL (0.8-4.8); Lymphocytes % 31.3 %; Mean Corpuscular HGB Conc 33.3 g/dL (30.0-36.0); Mean Corpuscular Hemoglobin 37.2 pg (28.0-34.0); Mean Platelet Volume 9.4 fL (7.4-10.4); Monocytes # 0.4 10^3/uL (0.2-0.9); Monocytes % 8.2 %; Neutrophils % 57.9 %; Nucleated Red Blood Cells % 0 %; Platelet Count 221 10^3/cmm (130-400); Red Blood Count 3.84 10^6/uL (4.1-5.3); Red Cell Distribution Width 12.5 % (12.1-15.1); White Blood Count 5.1 10^3/uL (4.0-10.0)
[2019-09-02 05:05] LABS: Creatine Phosphokinase 186 U/L (39-308)
[2019-09-02 05:10] LABS: Blood Urea Nitrogen 7 mg/dL (6-20); Calcium 8.9 mg/dL (8.5-10.5); Carbon Dioxide 24 mmol/L (22-29); Chloride 105 mmol/L (98-107); Glomerular Filtration Rate 147.8 mL/min (90-130); Glucose 104 mg/dL (65-115); Osmolality Calculated 278 mOsm/kg (285-295); Sodium 136 mmol/L (136-145)
[2019-09-02] MEDS: enoxaparin 40 mg/0.4 mL Syringe SUBCUT (06:18)
[2019-09-02] MEDS: LORazepam 2 mg/mL INJ 1 mL IVP (06:18)
[2019-09-02] MEDS: lithium carbonate 300 mg Capsule PO (08:57)
[2019-09-02] MEDS: fluoxetine 20 mg Capsule PO (08:57)
[2019-09-02] MEDS: multivitamin therapeutic Tablet 1 TAB PO (08:57)
[2019-09-02] MEDS: folic acid 1 mg Tablet PO (08:57)
[2019-09-02] MEDS: thiamine 100 mg Tablet PO (08:57)
[2019-09-02] MEDS: sodium chloride 0.9% 1,000 ML 100 ML IV (09:27)
--- NOTE | 2019-09-02 11:55 | PC.NURSE ---
Pt states that he is ready to go, he wants his cigarettes and then he will hit the road. Wants to go home, has no ride because he doesn't know his new wives phone number because she has a 90 year old sugar daddy and he was not given the number.
--- NOTE | 2019-09-02 12:42 | PM.DCS ---
Discharge Providers Date of Admission: 09/01/19 04:51 Date of Discharge: September 02, 2019 Attending Provider at Admission: Jaquan Ledezma MD Attending Provider at Discharge: Federico Truong MD Consults: Psychiatric: Dr. Em Primary Care Provider: Isabel Urbina MD Diagnoses at Discharge Discharge Diagnosis (1) Bipolar 1 disorder, manic, mild: Status: Acute (2) Alcohol withdrawal delirium: Status: Acute (3) Depression: Status: Acute (4) Pain in right elbow: Status: Acute (5) UTI (urinary tract infection): Status: Acute Reason for Visit Reason for Visit: Reason For Visit: anxiety/ chest pain Hospital Course Discharge Summary: Israel Gordon is a 43 year old male who has history of alcohol abuse, methamphetamine and polysubstance abuse, alcohol withdrawal, DTs came in with chief complaint of agitation, headache. Of note, patient was admitted 1 month ago with similar complaints, he was seen by Dr. Em who prescribed with him for bipolar disorder. Today this is his second visit, first visit was in the morning when he came for elbow pain, he was accompanied by the police, no fractures were noticed on imaging, chronic nasal fracture was seen he was discharged from the ER after evaluation by Dr. Em. He came back this morning because of increased agitation. Patient is stating that he is going through withdrawal and wants help. He is not a reliable historian. He was admitted to the ICU because of possible alcohol withdrawal. His urine drug screen and alcohol levels were negative. His hospital stay was unremarkable. His lithium levels were suboptimal. During his whole hospitalization he denied any homicidal and suicidal ideations. Patient was seen by psychiatry while he was admitted because of bipolar disorder. He was advised to continue taking his home medications. Patient was advised and counseled regarding the importance of alcohol cessation and importance of taking his medications as prescribed for stabilization of his bipolar disorder. Patient was given an option of possible alcohol rehabilitation but he is not interested in it right now. He is been discharged in hemodynamically stable condition with his baseline mentation. Physical Exam Narrative: EXAM NARRATIVE: General: Mildly anxious, no acute distress, on and off lethargic, AO x3 on arousal Cardiovascular: S1, S2 no signs of tachycardia, no murmurs, no gallops Lungs: Clear to auscultation bilaterally, normal vesicular breath sounds bilaterally Skin is cold and clammy without any signs of ischemia gangrene or ulcer Abdomen: Soft, nontender, bowel sound present Neurologica: AO x3 when awoken, moving all limbs spontaneously, GCS E3 M5V5, following simple commands. No visual tremors. Very anxious mood Discharge Data Data Completed and Pending: Completed Studies During Hospitalization Category Date Time Status CT cervical spin wo con* 19804 Urge nt Cat Scan 09/01/19 03:[address] facial bones w o con* [id number] Urgen t Cat Scan 09/01/19 02:[address] head wo con* 7 0450 Urgent Cat Scan 09/01/19 02:37 Completed XR chest 1V trish ble [id number] Stat Exams 09/01/19 01:30 Completed Pending at discharge Category Date Time Status Urine Culture Sta t Lab 09/01/19 02:30 Results Labs from last 24 hours 09/02/19 09/02/19 09/02/19 04:20 04:20 04:20 WBC 5.1 RBC 3.84 L Hgb 14.3 Hct 43.0 MCV 112.0 H MCH 37.2 H MCHC 33.3 RDW 12.5 Plt Count 221 MPV 9.4 Neut % (Auto) 57.9 Lymph % (Auto) 31.3 [place] % (Auto) 8.2 Eos % (Auto) 2.2 Baso % (Auto) 0.2 Neut # (Auto) 3.0 Lymph # (Auto) 1.6 [place] # (Auto) 0.4 Eos # (Auto) 0.1 Baso # (Auto) 0.0 Nucleated RBC % (a uto) 0 Nucleated RBCs # 0.0 Sodium 136 Potassium 4.0 Chloride 105 Carbon Dioxide 24 Anion Gap 11.0 BUN 7 Creatinine 0.6 L GFR Calculation 147.8 H Glucose 104 Calculated Osmolal ity 278 L Calcium 8.9 Creatine Kinase 186 Vitals: Last Vital Signs Temp 98.1 F 09/02/19 01:55 Pulse 79 09/02/19 10:00 Resp 21 H 09/02/19 10:00 BP 115/78 09/02/19 10:00 Pulse Ox 96 09/02/19 10:00 Discharge Plan Discharge Patient Disposition: Home, Self-Care Condition: Stable Prescriptions: New Thera 400 mcg Tablet 1 tab PO DAILY Qty: 30 RF: 0 Continued trazodone 100 mg Tablet 100 mg PO BEDTIME 30 Days Qty: 30 RF: 1 lithium carbonate 300 mg Capsule 300 mg PO BEDTIME 30 Days Qty: 30 RF: 1 lithium carbonate 300 mg Capsule 300 mg PO BID 30 Days Qty: 60 RF: 1 propranolol 20 mg Tablet 20 mg PO TID PRN (Reason: Anxiety) 30 Days Qty: 30 RF: 1 fluoxetine 20 mg Capsule 20 mg PO DAILY 30 Days Qty: 30 RF: 1 Discharge Orders: Discharge Order (Routine); Ordered 09/02/19 Ordered By: Federico Truong Referrals: Isabel Urbina MD [Primary Care Provider] - 2 weeks Discharge Diet: Regular Discharge Activity: Resume usual activity Activity Restrictions/Additional Instructions: Please avoid drinking alcohol. Please take medications as prescribed. Discharge Attestations Time Spent in Discharge Care*: greater than 30 min Specific Discharge Activities: Specific discharge activities: educating patient, discussing with pcp/other providers, discussing with business case analyst/social workers/dc planners and evaluating patient/reviewing data Status at Discharge: Cognitive status at discharge: cognitively intact, Behavioral status at discharge: cooperative, Quality Metrics Clinical Quality Measures During this hospital stay, did patient experience: None Coding Level of Care Code Acute Pharmacy Clinical Coordinator for [facility] Fwd Diagnoses Bipolar 1 disorder, manic, mild F31.11 Alcohol withdrawal delirium F10.231 Depression F32.9 Pain in right elbow M25.521 UTI (urinary tract infection) N39.0
--- NOTE | 2019-09-02 13:16 | PC.NURSE ---
DR TOLEDO HERE TO VISIT WITH PT. STATES THAT HE IS OK TO BE DISCHARGED. DR WEINSTEIN NOTIFIED
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
== END 2019-09-02 14:45 | disposition home or self-care (01) | DRG 897 ==
LOC: ER 04:38 → ICU 04:51
PROVIDERS: Admitting Provider Internal Medicine; Emergency Provider Emergency Medicine; PCP Family Medicine; Visit Provider Student in an Organized Health Care Education/Training Program
DX: F10.231 Alcohol dependence with withdrawal delirium (principal); N39.0 Urinary tract infection, site not specified; M62.82 Rhabdomyolysis; F15.10 Other stimulant abuse, uncomplicated; F31.9 Bipolar disorder, unspecified; F43.25 Adjustment disorder with mixed disturbance of emotions and conduct; F12.90 Cannabis use, unspecified, uncomplicated; Z81.1 Family history of alcohol abuse and dependence; M25.521 Pain in right elbow
CPT/HCPCS: 12345; 36415; 70450; 70486; 71045; 72125; 80048; 80053; 80156; 80164; 80178; 80185; 80306; 80307; 81001; 82550; 83690; 83735; 84443; 84484; 85025; 85610; 87086; 93005; 96372; 96375; 99283; J0696; J1650; J2060; J2405; J3411; J3490; J7030; J7799

== ENCOUNTER 2019-09-04 01:42 | Inpatient (IN) | payer SELFPAY ==
[2019-09-04 01:43] VITALS: BP 137/113; PULSE 116; RESP 18; TEMP 37.1; O2SAT 95; BMI 22.9
--- NOTE | 2019-09-04 01:45 | ECG_ITS ---
Measurements Intervals [place] Rate: 76 P: 58 KS: 156 QRS: 71 QRSD: 86 T: 73 QT: 387 QTc: 438 SINUS RHYTHM EARLY REPOLARIZATION [ST ELEVATION WITH NORMALLY INFLECTED T WAVE] Compared to ECG 09/01/2019 06:00:59 Sinus arrhythmia no longer present Electronically Signed On 09-04-2019 13:38:40 CDT by Ban Alvarez M.D. [email or web address]
[2019-09-04 02:00] LABS: Basophils % 0.4 %; Eosinophils # 0.1 10^3/uL (0.0-0.8); Eosinophils % 1.1 %; Hematocrit 45.6 % (42.0-52.0); Hemoglobin 15.4 g/dL (11.7-16.6); Lymphocytes # 1.9 10^3/uL (0.8-4.8); Lymphocytes % 26.8 %; Mean Corpuscular HGB Conc 33.8 g/dL (30.0-36.0); Mean Corpuscular Hemoglobin 36.8 pg (28.0-34.0); Mean Corpuscular Volume 109.1 fL (80-94); Mean Platelet Volume 8.9 fL (7.4-10.4); Monocytes # 0.6 10^3/uL (0.2-0.9); Monocytes % 8.3 %; Neutrophils # 4.4 10^3/uL (1.8-7.7); Neutrophils % 63.1 %; Nucleated Red Blood Cells % 0 %; Platelet Count 294 10^3/cmm (130-400); Red Blood Count 4.18 10^6/uL (4.1-5.3); Red Cell Distribution Width 12.5 % (12.1-15.1)
[2019-09-04] MEDS: haloperidol inj 5 mg/mL INJ 1 mL IM (02:02)
[2019-09-04] MEDS: nicotine 21 mg Patch 1 PATCH TRANSDERMA (02:03)
[2019-09-04 02:08] LABS: INR 0.83 (0.8-1.2)
[2019-09-04] MEDS: folic acid 1 MG, multivitamin inj 10 ML, thiamine 100 MG in sodium chloride 0.9% 1,000 ML 252.8 MG IV (02:11)
--- NOTE | 2019-09-04 02:11 | ED_ITS ---
HPI - Psych General: Chief Complaint: Psychiatric Symptoms Stated Complaint: si/etoh Time Seen by Provider: 09/04/19 01:45 History of Present Illness: HPI Narrative: Israel is a 43-year-old male who comes in suicidal. He appears to be under the influence of alcohol. When asked why he is here he states that he wants to kill multiple other people in that himself. When asked why he feels this way he just shrugs her shoulders and will not give a reason. Patient has been in the ER several times with similar symptoms. Patient denies any other complaints or concerns. All further history is taken from old charts. Review of Systems General: Reports: ROS unobtainable due to mental status (Patient intoxicated and uncooperative. Review of systems unable to be obtained are noted in HPI.) PFS ED PFSH: Medical History Adjustment disorder with mixed disturbance of emotions and conduct Alcohol use disorder -Has known history of alcohol abuse&DT Bipolar 1 disorder, manic, mild Depressive disorder, not elsewhere classified Methamphetamine abuse -UDS positive for amphetamines/THC Surgical History H/O hernia repair History of appendectomy Family History Other Alcoholism /alcohol abuse Social History Smoking and tobacco status: current every day smoker Alcohol intake: current Current gender identity: Male Physical Exam Const: COMMON NORMALS: no apparent distress and oriented x3 EXAM LIMITATIONS: behavioral limitations (Patient intoxicated); no altered mental status GENERAL APPEARANCE: disheveled NUTRITIONAL APPEARANCE: underweight ORIENTATION/CONSCIOUSNESS: Yes awake HENMT: COMMON NORMALS: normocephalic, head/scalp atraumatic, hearing grossly normal bilaterally, external ears normal, EAC's normal, external nose normal and moist oral mucous membranes HEAD & SCALP: normal to inspection, normocephalic and atraumatic FACE & SINUS: normal facial exam and face symmetric NOSE: external nose normal and nares normal EXTERNAL EAR: Yes external ears normal EXTERNAL AUDITORY CANAL: EAC's normal MOUTH: oral and palatal mucosa normal and tongue normal Eye: COMMON NORMALS: PERRL, EOMs intact bilaterally, conjunctivae normal and no scleral icterus GENERAL EYE: normal appearance of both eyes and normal light reflex CONJUNCTIVA: Yes conjunctivae normal SCLERA: sclerae normal CORNEA: Yes corneas normal PUPIL: Yes PERRL DIRECT OPHTHALMOSCOPY: Yes normal light reflex Neck/C-Spine: COMMON NORMALS: full ROM, no lymphadenopathy, supple, no meningeal signs and no JVD GENERAL: Yes normal visual inspection and Yes trachea midline CERVICAL SPINE: Yes cervical ROM normal Chest: COMMONS NORMALS: inspection of chest normal and palpation of chest normal Resp: COMMON NORMALS: normal respiratory effort, no retractions, no use of accessory muscles and clear to auscultation bilaterally EFFORT & INSPECTION: Yes able to speak in complete sentences AUSCULTATION: clear to auscultation bilaterally Cardio: COMMON NORMALS: no JVD, regular rate, regular rhythm, S1 normal heart sound, S2 normal heart sound, no gallops, no clicks, no murmurs and no rub JUGULAR VENOUS DISTENTION: no JVD RATE: regular rate RHYTHM: regular rhythm HEART SOUNDS: S1 normal and S2 normal GI: COMMON NORMALS: soft to palpation, non-tender, no hepatosplenomegaly and no masses INSPECTION: Yes normal to inspection PALPATION: Yes soft and Yes no hepatosplenomegaly : COMMON NORMALS: Yes no CVA tenderness BLADDER/KIDNEY EXAM: Yes no CVA tenderness Back/Pelvis: COMMON NORMALS: no CVA tenderness, thoracic and lumbar spine normal to inspection, no thoracic nor lumbar tenderness and thoraco-lumbar ROM normal Extremity: COMMON NORMALS: normal to inspection, full ROM, normal capillary refill, no joint enlargement, no clubbing, cyanosis or edema and no calf tenderness Neuro: COMMON NORMALS: oriented x3, CN's II-XII intact bilaterally, moves all extremities, no focal motor deficits and no sensory deficits noted MENINGEAL SIGNS: Yes no meningeal signs Psych: APPEARANCE: Yes disheveled ATTITUDE: Yes paranoid, Yes evasive and Yes belligerent ACTIVITY/MOTOR BEHAVIOR: Yes fidgeting and Yes restless SPEECH: Yes excessive and Yes loud MOOD & AFFECT: Yes anxious and Yes expansive affect THOUGHT PROCESS: disorganized and flight of ideas THOUGHT CONTENT: Yes suicidality and Yes homicidality Skin: COMMON NORMALS: no rashes or lesions noted, skin turgor normal, no jaundice, no petechiae and no mottling GENERAL SKIN EXAM: no rashes or lesions noted and turgor normal MDM - Psych MDM Narrative: Medical decision making narrative: Israel is a 43-year-old male who comes in with suicidal and homicidal ideation. He appears to be under the influence of alcohol. I reviewed the case in full including all the patient's comments with Dr. Em. He is agreeable to admission. We will make certain the patient's medical clearance comes back appropriate. He will be given a banana bag here as he is a chronic alcoholic and further care will will be dictated by Dr. Em. Lab Data: Labs: Lab Results 09/04/19 09/04/19 09/04/19 Range/Units 01:55 01:55 01:55 WBC 7.0 (4.0-10.0) 10^3/ uL RBC 4.18 (4.1-5.3) 10^6/u L Hgb 15.4 (11.7-16.6) g/dL Hct 45.6 (42.0-52.0) % MCV 109.1 H (80-94) fL MCH 36.8 H (28.0-34.0) pg MCHC 33.8 (30.0-36.0) g/dL RDW 12.5 (12.1-15.1) % Plt Count 294 (130-400) 10^3/c mm MPV 8.9 (7.4-10.4) fL Neut % (Auto) 63.1 % Lymph % (Auto) 26.8 % Dougherty % (Auto) 8.3 % Eos % (Auto) 1.1 % Baso % (Auto) 0.4 % Neut # (Auto) 4.4 (1.8-7.7) 10^3/u L Lymph # (Auto) 1.9 (0.8-4.8) 10^3/u L Dougherty # (Auto) 0.6 (0.2-0.9) 10^3/u L Eos # (Auto) 0.1 (0.0-0.8) 10^3/u L Baso # (Auto) 0.0 (0.0-0.1) 10^3/u L Nucleated RBC % (a uto) 0 % Nucleated RBCs # 0.0 /100WBC PT 11.60 (10.5-13.3) SECO NDS INR 0.83 (0.8-1.2) Sodium 141 (136-145) mmol/L Potassium 4.2 (3.5-5.1) mmol/L Chloride 103 (98-107) mmol/L Carbon Dioxide 23 (22-29) mmol/L Anion Gap 19.2 H (5-19) BUN 11 (6-20) mg/dL Creatinine 0.9 (0.7-1.2) mg/dL GFR Calculation 92.5 (90-130) mL/min Glucose 97 (65-115) mg/dL Calculated Osmolal ity 288 (285-295) mOsm/k g Calcium 8.9 (8.5-10.5) mg/dL Total Bilirubin 0.2 (0.15-1.2) mg/dL AST 34 (0-40) U/L ALT 29 (0-41) U/L Alkaline Phosphata se 108 (40-130) IU/L Total Protein 7.0 (6.6-8.7) g/dL Albumin 4.3 (3.5-5.2) g/dL Globulin 2.7 (1.3-4.6) g/dL TSH 1.60 (0.27-4.20) uIU/ mL Salicylates < 0.3 L (3-10) mg/dL Acetaminophen < 5.0 L (10-30) ug/mL Phenytoin 0.8 L (10-20) ug/mL Valproic Acid 2.8 L (50-100) mcg/mL Carbamazepine 2.0 L (4.0-12.0) ug/mL [place] (0.6-1.2) mmol/L Ethyl Alcohol 313 H* (0-10) mg/dL 09/04/19 Range/Units 01:55 WBC (4.0-10.0) 10^3/ uL RBC (4.1-5.3) 10^6/u L Hgb (11.7-16.6) g/dL Hct (42.0-52.0) % MCV (80-94) fL MCH (28.0-34.0) pg MCHC (30.0-36.0) g/dL RDW (12.1-15.1) % Plt Count (130-400) 10^3/c mm MPV (7.4-10.4) fL Neut % (Auto) % Lymph % (Auto) % Dougherty % (Auto) % Eos % (Auto) % Baso % (Auto) % Neut # (Auto) (1.8-7.7) 10^3/u L Lymph # (Auto) (0.8-4.8) 10^3/u L Dougherty # (Auto) (0.2-0.9) 10^3/u L Eos # (Auto) (0.0-0.8) 10^3/u L Baso # (Auto) (0.0-0.1) 10^3/u L Nucleated RBC % (a uto) % Nucleated RBCs # /100WBC PT (10.5-13.3) SECO NDS INR (0.8-1.2) Sodium (136-145) mmol/L Potassium (3.5-5.1) mmol/L Chloride (98-107) mmol/L Carbon Dioxide (22-29) mmol/L Anion Gap (5-19) BUN (6-20) mg/dL Creatinine (0.7-1.2) mg/dL GFR Calculation (90-130) mL/min Glucose (65-115) mg/dL Calculated Osmolal ity (285-295) mOsm/k g Calcium (8.5-10.5) mg/dL Total Bilirubin (0.15-1.2) mg/dL AST (0-40) U/L ALT (0-41) U/L Alkaline Phosphata se (40-130) IU/L Total Protein (6.6-8.7) g/dL Albumin (3.5-5.2) g/dL Globulin (1.3-4.6) g/dL TSH (0.27-4.20) uIU/ mL Salicylates (3-10) mg/dL Acetaminophen (10-30) ug/mL Phenytoin (10-20) ug/mL Valproic Acid (50-100) mcg/mL Carbamazepine (4.0-12.0) ug/mL [place] 0.2 L (0.6-1.2) mmol/L Ethyl Alcohol (0-10) mg/dL Discharge Plan Discharge Patient Disposition: Admitted As Inpatient Admit Provider: Shola Em Clinical Impression: Suicidal ideation Alcohol intoxication Qualifiers: Complication of substance-induced condition: with unspecified complication Qualified Code(s): F10.929 - Alcohol use, unspecified with intoxication, unspecified Condition: Stable Discharge Date/Time: 09/04/19 03:31 Coding Level of Care Code ED Mortar Worker for Camila Fwd Exam Comprehensive
[2019-09-04 02:24] LABS: Alanine Aminotransferase 29 U/L (0-41); Albumin Level 4.3 g/dL (3.5-5.2); Alkaline Phosphatase 108 IU/L (40-130); Anion Gap 19.2 (5-19); Aspartate Amino Transferase 34 U/L (0-40); Blood Urea Nitrogen 11 mg/dL (6-20); Calcium 8.9 mg/dL (8.5-10.5); Carbon Dioxide 23 mmol/L (22-29); Chloride 103 mmol/L (98-107); Globulin 2.7 g/dL (1.3-4.6); Glomerular Filtration Rate 92.5 mL/min (90-130); Glucose 97 mg/dL (65-115); Osmolality Calculated 288 mOsm/kg (285-295); Potassium 4.2 mmol/L (3.5-5.1); Sodium 141 mmol/L (136-145); Total Bilirubin 0.2 mg/dL (0.15-1.2)
[2019-09-04 02:38] LABS: Acetaminophen < 5.0 ug/mL (10-30); Salicylate < 0.3 mg/dL (3-10)
[2019-09-04 02:39] LABS: Alcohol Level 313 mg/dL (0-10)
[2019-09-04 03:15] LABS: Valproic Acid Level 2.8 mcg/mL (50-100)
[2019-09-04 03:16] LABS: Lithium 0.2 mmol/L (0.6-1.2); Phenytoin Dilantin 0.8 ug/mL (10-20)
[2019-09-04 03:28] VITALS: BP 118/73; PULSE 82; RESP 16; O2SAT 98
[2019-09-04 04:02] LABS: Amphetamines Screen Urine Negative (Negative); Barbiturates Screen Urine Negative (Negative); Benzodiazepines Screen Urine Negative (Negative); Cocaine Screen Urine Negative (Negative); Opiate Screen Urine Negative (Negative); PCP Screen Urine Negative (Negative); THC Screen Urine Negative (Negative)
[2019-09-04 06:00] VITALS: BP 139/78; PULSE 79; RESP 17; TEMP 36.4; O2SAT 96
[2019-09-04] MEDS: thiamine 100 mg Tablet PO (08:27)
[2019-09-04] MEDS: folic acid 1 mg Tablet PO (08:27)
[2019-09-04] MEDS: fluoxetine 20 mg Capsule PO (08:27)
[2019-09-04] MEDS: lithium carbonate 300 mg Capsule PO ×3 (08:27→20:51)
[2019-09-04] MEDS: multivitamin therapeutic Tablet 1 TAB PO (08:27)
[2019-09-04 14:00] VITALS: BP 128/77; PULSE 92; RESP 18; TEMP 36.9; O2SAT 97
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
[2019-09-04] MEDS: trazodone 100 mg Tablet PO (20:51)
[2019-09-04 21:37] VITALS: BP 132/86; PULSE 72; RESP 18; TEMP 36.9; O2SAT 98
[2019-09-05 06:00] VITALS: BP 117/77; PULSE 64; RESP 17; TEMP 36.6; O2SAT 98
[2019-09-05] MEDS: lithium carbonate 300 mg Capsule PO (08:52)
[2019-09-05] MEDS: multivitamin therapeutic Tablet 1 TAB PO (08:52)
[2019-09-05] MEDS: fluoxetine 20 mg Capsule PO (08:52)
[2019-09-05] MEDS: thiamine 100 mg Tablet PO (08:52)
[2019-09-05] MEDS: folic acid 1 mg Tablet PO (08:52)
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
[2019-09-05 12:53] VITALS: BP 117/77; PULSE 64; RESP 17; TEMP 36.6; O2SAT 98
== END 2019-09-05 14:43 | disposition home or self-care (01) | DRG 897 ==
LOC: ER 02:23 → NP 02:28
PROVIDERS: Admitting Provider Psychiatry & Neurology Psychiatry; Emergency Provider Emergency Medicine; PCP Family Medicine; Visit Provider Psychiatry & Neurology Psychiatry
DX: F10.229 Alcohol dependence with intoxication, unspecified (principal); F10.239 Alcohol dependence with withdrawal, unspecified; F15.10 Other stimulant abuse, uncomplicated; F43.25 Adjustment disorder with mixed disturbance of emotions and conduct; R45.850 Homicidal ideations; F12.10 Cannabis abuse, uncomplicated; F31.9 Bipolar disorder, unspecified; F17.210 Nicotine dependence, cigarettes, uncomplicated
CPT/HCPCS: 12345; 80053; 80156; 80164; 80178; 80185; 80306; 80307; 84443; 85025; 85610; 93005; 96372; 99284; J1630; J3411; J3490; J7030

== ENCOUNTER 2019-09-08 21:20 | Emergency (ER) | payer SELFPAY ==
[2019-09-08 21:24] VITALS: BP 128/89; PULSE 101; RESP 18; TEMP 36.9; O2SAT 95; BMI 22.9
--- NOTE | 2019-09-08 21:25 | ED_ITS ---
HPI - Psych General: Chief Complaint: Psychiatric Symptoms Stated Complaint: OUT OF MEDS Time Seen by Provider: 09/08/19 21:24 Source: patient Mode of arrival: ambulatory Limitations: no limitations History of Present Illness: HPI Narrative: Patient was brought in by EMS for concerns of intoxication. Spouse had called the balcony worker regarding patient being belligerent towards her and requested that he be brought to the emergency department for evaluation and possible admission to the stress unit. Patient is cooperative and admits to drinking tonight and arguing with his but denies homicidal or suicidal thoughts. Patient appears well. Patient states that he has been without his medication since he was released from the stress unit on the fourth. Review of Systems General: Reports: 10 or more systems reviewed and unremarkable except in HPI and below Psych: Reports: other (Substance abuse, intoxication, depression) [facility] ED PFSH: Social History Smoking and tobacco status: current every day smoker Alcohol intake: current Current gender identity: Male Physical Exam Const: COMMON NORMALS: no apparent distress and oriented x3 GENERAL APPEARANCE: cooperative HENMT: COMMON NORMALS: normocephalic, TM's normal bilaterally and external nose normal HEAD & SCALP: normal to inspection and normocephalic NOSE: external nose normal TYMPANIC MEMBRANE: TM's normal bilaterally MOUTH: oral and palatal mucosa normal THROAT: posterior oropharynx normal Eye: GENERAL EYE: normal appearance of both eyes Neck/C-Spine: COMMON NORMALS: full ROM Lymph: LYMPHATIC: no lymphadenopathy noted Chest: COMMONS NORMALS: inspection of chest normal Resp: COMMON NORMALS: normal respiratory effort EFFORT & INSPECTION: Yes able to speak in complete sentences Cardio: COMMON NORMALS: regular rate and regular rhythm RATE: regular rate RHYTHM: regular rhythm GI: COMMON NORMALS: non-tender : COMMON NORMALS: Yes no CVA tenderness BLADDER/KIDNEY EXAM: Yes no CVA tenderness Back/Pelvis: COMMON NORMALS: no CVA tenderness and thoracic and lumbar spine normal to inspection Extremity: COMMON NORMALS: normal to inspection Neuro: COMMON NORMALS: oriented x3 and moves all extremities Psych: COMMON NORMALS: thought process normal, cooperative and speech normal APPEARANCE: Yes disheveled ATTITUDE: Yes calm ACTIVITY/MOTOR BEHAVIOR: Yes appropriate eye contact SPEECH: Yes normal speech MOOD & AFFECT: Yes euthymic mood THOUGHT PROCESS: normal thought process THOUGHT CONTENT: Yes normal thought content INSIGHT: fair JUDGEMENT: fair OTHER: Patient is intoxicated but is appropriate and responding well to questioning. Skin: COMMON NORMALS: no rashes or lesions noted GENERAL SKIN EXAM: no rashes or lesions noted MDM - Psych MDM Narrative: Medical decision making narrative: Patient was brought in by EMS for concerns of threatening behavior to spouse. Patient denies that he was going to hurt anybody and denies suicidal thought. Patient appears well. Patient appears mildly intoxicated. Patient was given a dose of his medications that he has been without for 3 days. Patient is able to cook pickled meat refills tomorrow at the [facility] [place] [facility]. Patient is recommended to follow-up with primary care in 1 week or return to the ER as needed. Patient reports understanding agrees to plan. Discharge Plan Discharge Patient Disposition: Home, Self-Care Clinical Impression: Alcohol intoxication Qualifiers: Complication of substance-induced condition: uncomplicated Qualified Code(s): F10.920 - Alcohol use, unspecified with intoxication, uncomplicated Depression Qualifiers: Depression Type: unspecified Qualified Code(s): F32.9 - Major depressive disorder, single episode, unspecified Condition: Stable Prescriptions: No Action Thera 400 mcg Tablet 1 tab PO DAILY Qty: 30 RF: 0 trazodone 100 mg Tablet 100 mg PO BEDTIME 30 Days Qty: 30 RF: 1 lithium carbonate 300 mg Capsule 300 mg PO BEDTIME 30 Days Qty: 30 RF: 1 lithium carbonate 300 mg Capsule 300 mg PO BID 30 Days Qty: 60 RF: 1 propranolol 20 mg Tablet 20 mg PO TID PRN (Reason: Anxiety) 30 Days Qty: 30 RF: 1 fluoxetine 20 mg Capsule 20 mg PO DAILY 30 Days Qty: 30 RF: 1 Discharge Orders: Discharge Order (Routine); Ordered 09/08/19 Ordered By: Cleveland Ku Referrals: Isabel Urbina MD [Primary Care Provider] - Discharge Diet: Usual diet Discharge Activity: Increase activity as tolerated Patient Instructions: Abuse of Alcohol (ED) Activity Restrictions/Additional Instructions: Avoid alcohol, trying to limit to 2 drinks a day Healthy diet Refill medications at pharmacy tomorrow Return to ER as needed Follow-up with primary care in one week Coding Level of Care Code ED Manager Clinical Services for Camila Fwd Exam Comprehensive
--- NOTE | 2019-09-08 22:09 | PC.NURSE ---
Patient to desk and wishes to sign out AMA and not wait on his meds, AMA form signed. notified.
== END 2019-09-08 22:13 | disposition home or self-care (01) ==
LOC: ER 21:46
PROVIDERS: Emergency Provider Nurse Practitioner Family; PCP Family Medicine
DX: F10.920 Alcohol use, unspecified with intoxication, uncomplicated (principal); F32.9 Major depressive disorder, single episode, unspecified; F15.10 Other stimulant abuse, uncomplicated; F17.210 Nicotine dependence, cigarettes, uncomplicated
CPT/HCPCS: 12345; 99281; 99283

== ENCOUNTER 2019-09-09 13:44 | Emergency (ER) | payer SELFPAY ==
[2019-09-09 13:46] VITALS: BP 96/57; PULSE 97; RESP 15; TEMP 36.5; O2SAT 96
--- NOTE | 2019-09-09 13:50 | ED_ITS ---
HPI - Alcohol General: Chief Complaint: Psychiatric Symptoms Stated Complaint: ETOH Time Seen by Provider: 09/09/19 13:47 Source: patient, EMS and RN notes reviewed History of Present Illness: HPI narrative: [place]. Patient tells me he had a lot to drink but he is not homeless. He tells me he lives with his old woman . Denies any nausea vomiting or diarrhea. Does smoke cigarettes. Unsure of how much alcohol he drank. Denies wanting to hurt himself or being depressed or suicidal. I did review the nurses note and this is different from what he told the nurse. I again confirmed this with the patient and he says he is not suicidal Associated symptoms: Deny abdominal pain, nausea, suicidal ideation or vomiting Review of Systems General: Reports: 10 or more systems reviewed and unremarkable except in HPI and below Const: Denies: fever or chills Eyes: Denies: change in vision ENMT: Denies: throat pain Card: Denies: chest pain Resp: Denies: shortness of breath GI: Denies: abdominal pain, nausea, vomiting or change in bowel habits Musc: Denies: muscle weakness Skin/Breast: Denies: rash Neuro: Denies: headache Psych: Denies: hopelessness, visual hallucinations, auditory hallucinations, tactile hallucinations, suicidal ideation or homicidal ideation Endo: Denies: excessive urination Byron/Lymph: Denies: easy bruising or easy bleeding All/Imm: Denies: hives PFSH ED PFSH: Social History Smoking and tobacco status: current every day smoker Alcohol intake: current Current gender identity: Male Physical Exam Const: COMMON NORMALS: no apparent distress, oriented x3, alert and well nourished HENMT: COMMON NORMALS: normocephalic and external nose normal HEAD & SCALP: normocephalic NOSE: external nose normal MOUTH: no trismus Eye: COMMON NORMALS: EOMs intact bilaterally and conjunctivae normal CONJUNCTIVA: Yes conjunctivae normal Neck/C-Spine: COMMON NORMALS: full ROM, no lymphadenopathy and supple CERVICAL SPINE: Yes cervical ROM normal Lymph: LYMPHATIC: no lymphadenopathy noted Resp: COMMON NORMALS: normal respiratory effort, no retractions, no use of accessory muscles and clear to auscultation bilaterally EFFORT & INSPECTION: Yes able to speak in complete sentences AUSCULTATION: clear to auscultation bilaterally Cardio: COMMON NORMALS: regular rate and regular rhythm RATE: regular rate RHYTHM: regular rhythm GI: COMMON NORMALS: normal to inspection, nondistended, normoactive bowel sounds, soft to palpation, non-tender and no masses INSPECTION: Yes normal to inspection AUSCULTATION: Yes normoactive bowel sounds PALPATION: Yes soft, No guarding and No rigid Back/Pelvis: OTHER: Normal range of motion Extremity: GENERAL: Yes normal exam except as noted Neuro: COMMON NORMALS: oriented x3 and CN's II-XII intact bilaterally SENSORIUM/ORIENTATION: Yes alert SPEECH: speech normal Psych: SPEECH: Yes slurred THOUGHT PROCESS: disorganized INSIGHT: poor JUDGEMENT: poor Skin: COMMON NORMALS: no rashes or lesions noted GENERAL SKIN EXAM: no rashes or lesions noted Course Vital Signs: Vital signs: Vital Signs Temperature 97.7 F 09/09/19 13:46 Pulse Rate 97 09/09/19 17:26 Respiratory Rate 17 09/09/19 17:26 Blood Pressure 135/79 09/09/19 17:26 Pulse Oximetry 95 09/09/19 17:26 MDM - Alcohol MDM Narrative: Medical decision making narrative: 43-year-old male with long history of alcohol abuse and intoxication. He has not had any problems while here he wishes to leave he has a steady gait is not shaky no symptoms of withdrawal at this time. He did not drive here he is not suicidal or depressed and does not want help with his drinking problem at this time. Will discharge. Lab Data: Attestation: I reviewed the patient's lab results. Labs: Lab Results 09/09/19 09/09/19 Range/Units 14:10 14:10 WBC 7.5 (4.0-10.0) 10^3/ uL RBC 4.49 (4.1-5.3) 10^6/u L Hgb 16.8 H (11.7-16.6) g/dL Hct 49.5 (42.0-52.0) % MCV 110.2 H (80-94) fL MCH 37.4 H (28.0-34.0) pg MCHC 33.9 (30.0-36.0) g/dL RDW 12.9 (12.1-15.1) % Plt Count 311 (130-400) 10^3/c mm MPV 9.2 (7.4-10.4) fL Neut % (Auto) 43.2 % Lymph % (Auto) 44.8 % Coos % (Auto) 10.3 % Eos % (Auto) 0.8 % Baso % (Auto) 0.5 % Neut # (Auto) 3.3 (1.8-7.7) 10^3/u L Lymph # (Auto) 3.4 (0.8-4.8) 10^3/u L Coos # (Auto) 0.8 (0.2-0.9) 10^3/u L Eos # (Auto) 0.1 (0.0-0.8) 10^3/u L Baso # (Auto) 0.0 (0.0-0.1) 10^3/u L Nucleated RBC % (a uto) 0 % Nucleated RBCs # 0.0 /100WBC Sodium 145 (136-145) mmol/L Potassium 3.6 (3.5-5.1) mmol/L Chloride 104 (98-107) mmol/L Carbon Dioxide 26 (22-29) mmol/L Anion Gap 18.6 (5-19) BUN 12 (6-20) mg/dL Creatinine 0.7 (0.7-1.2) mg/dL GFR Calculation 123.7 (90-130) mL/min Glucose 98 (65-115) mg/dL Calculated Osmolal ity 296 H (285-295) mOsm/k g Calcium 8.8 (8.5-10.5) mg/dL Total Bilirubin 0.4 (0.15-1.2) mg/dL AST 42 H (0-40) U/L ALT 34 (0-41) U/L Alkaline Phosphata se 116 (40-130) IU/L Total Protein 7.4 (6.6-8.7) g/dL Albumin 4.4 (3.5-5.2) g/dL Globulin 3.0 (1.3-4.6) g/dL Ethyl Alcohol 358 H* (0-10) mg/dL Discharge Plan Discharge Patient Disposition: Home, Self-Care Clinical Impression: Alcohol use disorder Condition: Stable Prescriptions: No Action Thera 400 mcg Tablet 1 tab PO DAILY Qty: 30 RF: 0 lithium carbonate 300 mg capsule See Rx Instructions .ROUTE .COMPLEX RF: 0 trazodone 100 mg Tablet 100 mg PO BEDTIME 30 Days Qty: 30 RF: 1 propranolol 20 mg Tablet 20 mg PO TID PRN (Reason: Anxiety) 30 Days Qty: 30 RF: 1 fluoxetine 20 mg Capsule 20 mg PO DAILY 30 Days Qty: 30 RF: 1 Referrals: Isabel Urbina MD [Primary Care Provider] - Patient Instructions: Alcohol Abuse, Alcohol Intoxication Discharge Date/Time: 09/09/19 17:26 Coding Level of Care Code ED Attendant Coin Operated Laundry for Chg Fwd Exam Comprehensive
[2019-09-09] MEDS: sodium chloride 0.9% 1,000 ML 999 ML IV ×2 (14:16→15:33)
[2019-09-09] MEDS: nicotine 21 mg Patch 1 PATCH TRANSDERMA (14:16)
[2019-09-09] MEDS: LORazepam 1 mg Tablet PO (14:16)
[2019-09-09 14:26] LABS: Basophils % 0.5 %; Eosinophils # 0.1 10^3/uL (0.0-0.8); Eosinophils % 0.8 %; Hematocrit 49.5 % (42.0-52.0); Hemoglobin 16.8 g/dL (11.7-16.6); Lymphocytes # 3.4 10^3/uL (0.8-4.8); Lymphocytes % 44.8 %; Mean Corpuscular HGB Conc 33.9 g/dL (30.0-36.0); Mean Corpuscular Hemoglobin 37.4 pg (28.0-34.0); Mean Corpuscular Volume 110.2 fL (80-94); Mean Platelet Volume 9.2 fL (7.4-10.4); Monocytes # 0.8 10^3/uL (0.2-0.9); Monocytes % 10.3 %; Neutrophils # 3.3 10^3/uL (1.8-7.7); Neutrophils % 43.2 %; Nucleated Red Blood Cells % 0 %; Platelet Count 311 10^3/cmm (130-400); Red Blood Count 4.49 10^6/uL (4.1-5.3); Red Cell Distribution Width 12.9 % (12.1-15.1); White Blood Count 7.5 10^3/uL (4.0-10.0)
[2019-09-09 14:31] LABS: Alanine Aminotransferase 34 U/L (0-41); Albumin Level 4.4 g/dL (3.5-5.2); Alkaline Phosphatase 116 IU/L (40-130); Anion Gap 18.6 (5-19); Aspartate Amino Transferase 42 U/L (0-40); Blood Urea Nitrogen 12 mg/dL (6-20); Calcium 8.8 mg/dL (8.5-10.5); Carbon Dioxide 26 mmol/L (22-29); Chloride 104 mmol/L (98-107); Glomerular Filtration Rate 123.7 mL/min (90-130); Glucose 98 mg/dL (65-115); Osmolality Calculated 296 mOsm/kg (285-295); Potassium 3.6 mmol/L (3.5-5.1); Sodium 145 mmol/L (136-145); Total Bilirubin 0.4 mg/dL (0.15-1.2); Total Protein 7.4 g/dL (6.6-8.7)
[2019-09-09 14:37] LABS: Alcohol Level 358 mg/dL (0-10)
--- NOTE | 2019-09-09 15:19 | PC.NURSE ---
pt vehemently denies and SI or HI
[2019-09-09] MEDS: folic acid 1 MG, multivitamin inj 10 ML, thiamine 100 MG in sodium chloride 0.9% 1,000 ML 252.8 MG IV (16:35)
[2019-09-09 17:26] VITALS: BP 135/79; PULSE 97; RESP 17; O2SAT 95
== END 2019-09-09 17:26 | disposition home or self-care (01) ==
PROVIDERS: Emergency Provider Emergency Medicine; PCP Family Medicine
DX: F10.129 Alcohol abuse with intoxication, unspecified (principal); Y90.8 Blood alcohol level of 240 mg/100 ml or more; F17.200 Nicotine dependence, unspecified, uncomplicated; F32.9 Major depressive disorder, single episode, unspecified
CPT/HCPCS: 12345; 36415; 80053; 80307; 85025; 96360; 96361; 96365; 96366; 99283; 99284; J3411; J3490; J7030

== ENCOUNTER 2019-09-10 21:27 | Emergency (ER) | payer SELFPAY ==
[2019-09-10 21:41] VITALS: BP 154/113; PULSE 120; RESP 18; TEMP 36.9; O2SAT 98; BMI 22.9
[2019-09-10 22:03] VITALS: BP 140/109; PULSE 110; RESP 20; O2SAT 100
--- NOTE | 2019-09-10 22:06 | W.ED.SOB ---
Documented by User: Timothy Gustafson MD, [facility] [place] 09/10/19 22:20 HPI - SOB/Dyspnea General: Chief Complaint: Shortness of Breath/Dyspnea Stated Complaint: intoxication/sob Time Seen by Provider: 09/10/19 21:51 History of Present Illness: HPI Narrative: Patient is a 43 year old male patient who visits the ED frequently usually secondary to alcohol intoxication. He presents tonight with complains of feeling funny and unwell after taking a few mixed alcoholic drinks that were made by his friends. he denies chest pain but has a subjective sensation of shortness of breath. No fever and no sick contacts. No recent travel. MD elicited complaint: shortness of breath Onset (ago): hour(s) (2) Context: other (started after drinking a few mixed drinks) Timing: constant Severity: mild Exacerbating factors: nothing Relieving factors: nothing Associated symptoms: Deny abdominal pain, chest pain, cough, diaphoresis, nausea, polydipsia, polyuria or vomiting Treatment prior to arrival: none Review of Systems General: Reports: 10 or more systems reviewed and unremarkable except in HPI and below Const: Denies: diaphoresis Eyes: Denies: change in vision or blurry vision ENMT: Denies: throat pain, enlarged tonsils, painful swallowing, hoarseness, mouth pain or swelling of lips/tongue Card: Denies: chest pain Resp: Reports: shortness of breath GI: Denies: abdominal pain, nausea or vomiting : Denies: flank pain, painful urination, urinary frequency, urinary urgency or urinary hesitancy Musc: Denies: neck pain, back pain or extremity swelling Skin/Breast: Denies: rash, itching or redness Neuro: Denies: headache, numbness in extremities or weakness in extremities Endo: Denies: excessive urination, excessive thirst or tired all the time [facility] ED PFSH: Social History Smoking and tobacco status: current every day smoker Alcohol intake: current Current gender identity: Male Physical Exam Const: COMMON NORMALS: no apparent distress, average body habitus, oriented x3, no limitations, healthy appearing, alert and well nourished HENMT: COMMON NORMALS: normocephalic, head/scalp atraumatic and moist oral mucous membranes HEAD & SCALP: normocephalic and atraumatic Eye: COMMON NORMALS: PERRL, EOMs intact bilaterally, conjunctivae normal and no scleral icterus CONJUNCTIVA: Yes conjunctivae normal PUPIL: Yes PERRL Neck/C-Spine: COMMON NORMALS: full ROM, supple, no meningeal signs, no JVD and no carotid bruits Chest: COMMONS NORMALS: inspection of chest normal and palpation of chest normal Resp: COMMON NORMALS: normal respiratory effort, no retractions, no use of accessory muscles, clear to auscultation bilaterally and percussion normal AUSCULTATION: clear to auscultation bilaterally PERCUSSION: percussion normal Cardio: COMMON NORMALS: no JVD, regular rate, regular rhythm, S1 normal heart sound, S2 normal heart sound, no gallops, no clicks, no murmurs, no rub and peripheral pulses 2+ throughout RATE: regular rate RHYTHM: regular rhythm HEART SOUNDS: S1 normal and S2 normal PERIPHERAL PULSES: pulses 2+ throughout GI: COMMON NORMALS: normal to inspection, nondistended, normoactive bowel sounds, soft to palpation, non-tender, no hepatosplenomegaly, no masses and no bruits PALPATION: Yes soft and Yes no hepatosplenomegaly : COMMON NORMALS: Yes no CVA tenderness BLADDER/KIDNEY EXAM: Yes no CVA tenderness Back/Pelvis: COMMON NORMALS: no CVA tenderness Extremity: COMMON NORMALS: normal to inspection, full ROM, normal capillary refill, no calf tenderness and no pedal edema Neuro: COMMON NORMALS: oriented x3 SENSORIUM/ORIENTATION: Yes alert MENINGEAL SIGNS: Yes no meningeal signs Skin: COMMON NORMALS: no rashes or lesions noted, no wounds, skin turgor normal, no jaundice, no petechiae and no mottling GENERAL SKIN EXAM: no rashes or lesions noted and turgor normal Course Vital Signs: Vital signs: Vital Signs Temperature 98.4 F 09/10/19 21:41 Pulse Rate 91 09/11/19 02:00 Respiratory Rate 18 09/10/19 23:46 Blood Pressure 135/92 09/11/19 02:00 Pulse Oximetry 97 09/11/19 02:00 MDM - SOB/Dyspnea Lab Data: Labs: Lab Results 09/10/19 09/10/19 09/10/19 Range/Units 22:10 22:10 22:10 WBC Cancelled Corrected WBC Cancelled RBC Cancelled Hgb Cancelled Hct Cancelled MCV Cancelled MCH Cancelled MCHC Cancelled RDW Cancelled Plt Count Cancelled MPV Cancelled Gran % Cancelled Neut % (Auto) Cancelled Lymph % (Auto) Cancelled [place] % (Auto) Cancelled Eos % (Auto) Cancelled Baso % (Auto) Cancelled Neut # (Auto) Cancelled Lymph # (Auto) Cancelled [place] # (Auto) Cancelled Eos # (Auto) Cancelled Baso # (Auto) Cancelled Absolute Gran (aut o) Cancelled Nucleated RBC % (a uto) Cancelled Nucleated RBCs # Cancelled D-Dimer (0-0.59) ug/mIFE U Sodium Cancelled Potassium Cancelled Chloride Cancelled Carbon Dioxide Cancelled Anion Gap Cancelled BUN Cancelled Creatinine Cancelled GFR Calculation Cancelled Glucose Cancelled Calculated Osmolal ity Cancelled Calcium Cancelled Magnesium (1.7-2.3) mg/dL Total Bilirubin Cancelled AST Cancelled ALT Cancelled Alkaline Phosphata se Cancelled Troponin T Gen 5 n g/L Cancelled Troponin T Baselin e (0-15) ng/mL Troponin T 120 Min chicken [place] (0-15) ng/mL Total Protein Cancelled Albumin Cancelled Globulin Cancelled Lipase Cancelled Urine Opiates Scre en (Negative) ng/mL Ur Barbiturates Sc reen (Negative) ng/mL Ur Phencyclidine S crn (Negative) ng/mL Ur Amphetamines Sc reen (Negative) ng/mL U Benzodiazepines Scrn (Negative) ng/mL [place] (0.6-1.2) mmol/L Urine Cocaine Scre en (Negative) ng/mL U Marijuana (THC) Screen (Negative) ng/mL Ethyl Alcohol Cancelled Blood Type Rho(D) Type Antibody Screen 09/10/19 09/10/19 09/10/19 Range/Units 22:50 23:20 23:20 WBC Corrected WBC RBC Hgb 15.8 Hct 45.0 MCV MCH MCHC RDW Plt Count MPV Gran % Neut % (Auto) Lymph % (Auto) [place] % (Auto) Eos % (Auto) Baso % (Auto) Neut # (Auto) Lymph # (Auto) [place] # (Auto) Eos # (Auto) Baso # (Auto) Absolute Gran (aut o) Nucleated RBC % (a uto) Nucleated RBCs # D-Dimer (0-0.59) ug/mIFE U Sodium Potassium Chloride Carbon Dioxide Anion Gap BUN Creatinine GFR Calculation Glucose Calculated Osmolal ity Calcium Magnesium (1.7-2.3) mg/dL Total Bilirubin AST ALT Alkaline Phosphata se Troponin T Gen 5 n g/L Troponin T Baselin e (0-15) ng/mL Troponin T 120 Min [place] (0-15) ng/mL Total Protein Albumin Globulin Lipase Urine Opiates Scre en Negative (Negative) ng/mL Ur Barbiturates Sc reen Negative (Negative) ng/mL Ur Phencyclidine S crn Negative (Negative) ng/mL Ur Amphetamines Sc reen Negative (Negative) ng/mL U Benzodiazepines Scrn Positive H (Negative) ng/mL [place] (0.6-1.2) mmol/L Urine Cocaine Scre en Negative (Negative) ng/mL U Marijuana (THC) Screen Negative (Negative) ng/mL Ethyl Alcohol Blood Type Cancelled Rho(D) Type Cancelled Antibody Screen Cancelled 09/10/19 09/10/19 09/10/19 Range/Units 23:43 23:43 23:43 WBC Corrected WBC RBC Hgb Hct MCV MCH MCHC RDW Plt Count MPV Gran % Neut % (Auto) Lymph % (Auto) [place] % (Auto) Eos % (Auto) Baso % (Auto) Neut # (Auto) Lymph # (Auto) [place] # (Auto) Eos # (Auto) Baso # (Auto) Absolute Gran (aut o) Nucleated RBC % (a uto) Nucleated RBCs # D-Dimer (0-0.59) ug/mIFE U Sodium 138 Potassium 3.8 Chloride 100 Carbon Dioxide 26 Anion Gap 15.8 BUN 9 Creatinine 0.6 L GFR Calculation 147.8 H Glucose 98 Calculated Osmolal ity 282 L Calcium 9.5 Magnesium 1.9 (1.7-2.3) mg/dL Total Bilirubin 1.4 H AST 126 H ALT 103 H Alkaline Phosphata se 119 Troponin T Gen 5 n g/L Troponin T Baselin e 12 (0-15) ng/mL Troponin T 120 Min [place] (0-15) ng/mL Total Protein 7.4 Albumin 4.4 Globulin 3.0 Lipase 35 Urine Opiates Scre en (Negative) ng/mL Ur Barbiturates Sc reen (Negative) ng/mL Ur Phencyclidine S crn (Negative) ng/mL Ur Amphetamines Sc reen (Negative) ng/mL U Benzodiazepines Scrn (Negative) ng/mL [place] 0.1 L (0.6-1.2) mmol/L Urine Cocaine Scre en (Negative) ng/mL U Marijuana (THC) Screen (Negative) ng/mL Ethyl Alcohol < 10 Blood Type Rho(D) Type Antibody Screen 09/10/19 09/11/19 09/11/19 Range/Units 23:43 01:46 23:43 WBC Corrected WBC RBC Hgb Hct MCV MCH MCHC RDW Plt Count MPV Gran % Neut % (Auto) Lymph % (Auto) [place] % (Auto) Eos % (Auto) Baso % (Auto) Neut # (Auto) Lymph # (Auto) [place] # (Auto) Eos # (Auto) Baso # (Auto) Absolute Gran (aut o) Nucleated RBC % (a uto) Nucleated RBCs # D-Dimer 0.58 (0-0.59) ug/mIFE U Sodium Potassium Chloride Carbon Dioxide Anion Gap BUN Creatinine GFR Calculation Glucose Calculated Osmolal ity Calcium Magnesium (1.7-2.3) mg/dL Total Bilirubin AST ALT Alkaline Phosphata se Troponin T Gen 5 n g/L 12 Troponin T Baselin e (0-15) ng/mL Troponin T 120 Min [place] 11.59 (0-15) ng/mL Total Protein Albumin Globulin Lipase Urine Opiates Scre en (Negative) ng/mL Ur Barbiturates Sc reen (Negative) ng/mL Ur Phencyclidine S crn (Negative) ng/mL Ur Amphetamines Sc reen (Negative) ng/mL U Benzodiazepines Scrn (Negative) ng/mL [place] (0.6-1.2) mmol/L Urine Cocaine Scre en (Negative) ng/mL U Marijuana (THC) Screen (Negative) ng/mL Ethyl Alcohol Blood Type Rho(D) Type Antibody Screen EKG Data^: EKG 1: Attestation: I personally reviewed and interpreted this EKG as follows: EKG Interpretation Date: 09/10/19 EKG interpretation time: 21:53 Prior EKG tracings: not available for review Interpretation: sinus tachycardia HR [address] changes. Otherwise normal. Discharge Plan Discharge Patient Disposition: Home, Self-Care Clinical Impression: Acute dyspnea Condition: Stable Prescriptions: No Action Thera 400 mcg Tablet 1 tab PO DAILY Qty: 30 RF: 0 lithium carbonate 300 mg capsule See Rx Instructions .ROUTE .COMPLEX RF: 0 trazodone 100 mg Tablet 100 mg PO BEDTIME 30 Days Qty: 30 RF: 1 propranolol 20 mg Tablet 20 mg PO TID PRN (Reason: Anxiety) 30 Days Qty: 30 RF: 1 fluoxetine 20 mg Capsule 20 mg PO DAILY 30 Days Qty: 30 RF: 1 Discharge Orders: Discharge Order (Routine); Ordered 09/11/19 Ordered By: Priscilla Obando Referrals: Isabel Urbina MD [Primary Care Provider] - 1-3 days Discharge Diet: Advance as tolerated Discharge Activity: Increase activity as tolerated Patient Instructions: Dyspnea (ED) Activity Restrictions/Additional Instructions: Please return to the ER immediately for any of the signs or symptoms listed on your discharge instruction sheets, worsening/changing of your symptoms, you are not getting better as quickly as expected, or for ANY other cause or concerns. Coding Level of Care Code ED Cake Maker for Chg Fwd Exam Comprehensive Documented by User: Priscilla Obando 09/11/19 02:31 HPI - SOB/Dyspnea General: Chief Complaint: Shortness of Breath/Dyspnea Stated Complaint: intoxication/sob Time Seen by Provider: 09/10/19 21:51 PFS ED PFSH: Social History Smoking and tobacco status: current every day smoker Alcohol intake: current Current gender identity: Male Course Vital Signs: Vital signs: Vital Signs Temperature 98.4 F 09/10/19 21:41 Pulse Rate 91 09/11/19 02:00 Respiratory Rate 18 09/10/19 23:46 Blood Pressure 135/92 09/11/19 02:00 Pulse Oximetry 97 09/11/19 02:00 MDM - SOB/Dyspnea MDM Narrative: Medical decision making narrative: 2299 -Case turned over to me at change of shift from Dr. Gustafson. Patient had abnormal labs that did not seem to make sense within the timeframe from when he was last here. Repeat labs were ordered as well as a CT of the chest abdomen pelvis. Upon my exam the patient is tachycardic but has no complaints. 0230 -the patient's EKGs and troponins have been normal. His tox screen is unremarkable except for benzodiazepines but he does not appear to be under the influence of benzodiazepines at this time. He is feeling better would like to go home. His tachycardia has resolved. He is asking to stay here as he has no place to go and it is cold outside so I will allow him to sleep here until morning and then he understands he will go home. I see no sign of pulmonary embolism based upon a negative d-dimer, he has no evidence of pneumonia infection in his chest based upon CT. There is questionable enteritis by CT but he denies any symptoms of vomiting or diarrhea. I see no evidence of acute coronary syndrome, pericarditis/myocarditis or other complaint or life-threatening issue at this time. Lab Data: Labs: Lab Results 09/10/19 09/10/19 09/10/19 Range/Units 22:10 22:10 22:10 WBC Cancelled Corrected WBC Cancelled RBC Cancelled Hgb Cancelled Hct Cancelled MCV Cancelled MCH Cancelled MCHC Cancelled RDW Cancelled Plt Count Cancelled MPV Cancelled Gran % Cancelled Neut % (Auto) Cancelled Lymph % (Auto) Cancelled [place] % (Auto) Cancelled Eos % (Auto) Cancelled Baso % (Auto) Cancelled Neut # (Auto) Cancelled Lymph # (Auto) Cancelled [place] # (Auto) Cancelled Eos # (Auto) Cancelled Baso # (Auto) Cancelled Absolute Gran (aut o) Cancelled Nucleated RBC % (a uto) Cancelled Nucleated RBCs # Cancelled D-Dimer (0-0.59) ug/mIFE U Sodium Cancelled Potassium Cancelled Chloride Cancelled Carbon Dioxide Cancelled Anion Gap Cancelled BUN Cancelled Creatinine Cancelled GFR Calculation Cancelled Glucose Cancelled Calculated Osmolal ity Cancelled Calcium Cancelled Magnesium (1.7-2.3) mg/dL Total Bilirubin Cancelled AST Cancelled ALT Cancelled Alkaline Phosphata se Cancelled Troponin T Gen 5 n g/L Cancelled Troponin T Baselin e (0-15) ng/mL Troponin T 120 Min [place] (0-15) ng/mL Total Protein Cancelled Albumin Cancelled Globulin Cancelled Lipase Cancelled Urine Opiates Scre en (Negative) ng/mL Ur Barbiturates Sc reen (Negative) ng/mL Ur Phencyclidine S crn (Negative) ng/mL Ur Amphetamines Sc reen (Negative) ng/mL U Benzodiazepines Scrn (Negative) ng/mL [place] (0.6-1.2) mmol/L Urine Cocaine Scre en (Negative) ng/mL U Marijuana (THC) Screen (Negative) ng/mL Ethyl Alcohol Cancelled Blood Type Rho(D) Type Antibody Screen 09/10/19 09/10/19 09/10/19 Range/Units 22:50 23:20 23:20 WBC Corrected WBC RBC Hgb 15.8 Hct 45.0 MCV MCH MCHC RDW Plt Count MPV Gran % Neut % (Auto) Lymph % (Auto) [place] % (Auto) Eos % (Auto) Baso % (Auto) Neut # (Auto) Lymph # (Auto) [place] # (Auto) Eos # (Auto) Baso # (Auto) Absolute Gran (aut o) Nucleated RBC % (a uto) Nucleated RBCs # D-Dimer (0-0.59) ug/mIFE U Sodium Potassium Chloride Carbon Dioxide Anion Gap BUN Creatinine GFR Calculation Glucose Calculated Osmolal ity Calcium Magnesium (1.7-2.3) mg/dL Total Bilirubin AST ALT Alkaline Phosphata se Troponin T Gen 5 n g/L Troponin T Baselin e (0-15) ng/mL Troponin T 120 Min [place] (0-15) ng/mL Total Protein Albumin Globulin Lipase Urine Opiates Scre en Negative (Negative) ng/mL Ur Barbiturates Sc reen Negative (Negative) ng/mL Ur Phencyclidine S crn Negative (Negative) ng/mL Ur Amphetamines Sc reen Negative (Negative) ng/mL U Benzodiazepines Scrn Positive H (Negative) ng/mL [place] (0.6-1.2) mmol/L Urine Cocaine Scre en Negative (Negative) ng/mL U Marijuana (THC) Screen Negative (Negative) ng/mL Ethyl Alcohol Blood Type Cancelled Rho(D) Type Cancelled Antibody Screen Cancelled 09/10/19 09/10/19 09/10/19 Range/Units 23:43 23:43 23:43 WBC Corrected WBC RBC Hgb Hct MCV MCH MCHC RDW Plt Count MPV Gran % Neut % (Auto) Lymph % (Auto) [place] % (Auto) Eos % (Auto) Baso % (Auto) Neut # (Auto) Lymph # (Auto) [place] # (Auto) Eos # (Auto) Baso # (Auto) Absolute Gran (aut o) Nucleated RBC % (a uto) Nucleated RBCs # D-Dimer (0-0.59) ug/mIFE U Sodium 138 Potassium 3.8 Chloride 100 Carbon Dioxide 26 Anion Gap 15.8 BUN 9 Creatinine 0.6 L GFR Calculation 147.8 H Glucose 98 Calculated Osmolal ity 282 L Calcium 9.5 Magnesium 1.9 (1.7-2.3) mg/dL Total Bilirubin 1.4 H AST 126 H ALT 103 H Alkaline Phosphata se 119 Troponin T Gen 5 n g/L Troponin T Baselin e 12 (0-15) ng/mL Troponin T 120 Min [place] (0-15) ng/mL Total Protein 7.4 Albumin 4.4 Globulin 3.0 Lipase 35 Urine Opiates Scre en (Negative) ng/mL Ur Barbiturates Sc reen (Negative) ng/mL Ur Phencyclidine S crn (Negative) ng/mL Ur Amphetamines Sc reen (Negative) ng/mL U Benzodiazepines Scrn (Negative) ng/mL [place] 0.1 L (0.6-1.2) mmol/L Urine Cocaine Scre en (Negative) ng/mL U Marijuana (THC) Screen (Negative) ng/mL Ethyl Alcohol < 10 Blood Type Rho(D) Type Antibody Screen 09/10/19 09/11/19 09/11/19 Range/Units 23:43 01:46 23:43 WBC Corrected WBC RBC Hgb Hct MCV MCH MCHC RDW Plt Count MPV Gran % Neut % (Auto) Lymph % (Auto) [place] % (Auto) Eos % (Auto) Baso % (Auto) Neut # (Auto) Lymph # (Auto) [place] # (Auto) Eos # (Auto) Baso # (Auto) Absolute Gran (aut o) Nucleated RBC % (a uto) Nucleated RBCs # D-Dimer 0.58 (0-0.59) ug/mIFE U Sodium Potassium Chloride Carbon Dioxide Anion Gap BUN Creatinine GFR Calculation Glucose Calculated Osmolal ity Calcium Magnesium (1.7-2.3) mg/dL Total Bilirubin AST ALT Alkaline Phosphata se Troponin T Gen 5 n g/L 12 Troponin T Baselin e (0-15) ng/mL Troponin T 120 Min [place] 11.59 (0-15) ng/mL Total Protein Albumin Globulin Lipase Urine Opiates Scre en (Negative) ng/mL Ur Barbiturates Sc reen (Negative) ng/mL Ur Phencyclidine S crn (Negative) ng/mL Ur Amphetamines Sc reen (Negative) ng/mL U Benzodiazepines Scrn (Negative) ng/mL [place] (0.6-1.2) mmol/L Urine Cocaine Scre en (Negative) ng/mL U Marijuana (THC) Screen (Negative) ng/mL Ethyl Alcohol Blood Type Rho(D) Type Antibody Screen Imaging Data^: Other CT: Radiologist's impression: [place] [address] CT Scan Report Signed Patient: Israel Gordon Unit #: [id number] : 1975 Age/Sex: 43 / M ADM Date: 09/10/19 Loc: ER Room/Bed: Attending Dr: Ordering Provider/Ordering MD: Timothy Gustafson MD, [facility] [place] Date of Service: 09/10/19 Procedure(s): CT chest abd pel w con* Accession Number(s): [id number] Report Number: [id number] PROCEDURE INFORMATION: Exam: CT Chest With Contrast Exam date and time: 09/10/2019 11:33 PM Age: 43 years old Clinical indication: Other: Anemia; Shortness of breath; Prior surgery; Surgery type: Appendectomy, hernia repair; Additional info: Shortness of breath, anemia TECHNIQUE: Imaging protocol: Computed tomography of the chest with intravenous contrast. Sagittal and coronal reformatted images were created and reviewed. Total DLP: 1143.53 mGy-cm Radiation optimization: All CT scans at this facility use at least one of these dose optimization techniques: automated exposure control; mA and/or kV adjustment per patient size (includes targeted exams where dose is matched to clinical indication); or iterative reconstruction. Contrast material: OMNI 300; Contrast volume: 95 ml; Contrast route: 18G; COMPARISON: CR XR chest 1V portable [id number] 09/01/2019 2:00 AM FINDINGS: Thyroid: Low density nodule in right lobe of the thyroid measuring 9.6 mm. Lungs: Tracheobronchial structures are patent. No focal consolidation. No pulmonary edema. There is linear scarring in the right lower lobe. No pulmonary parenchymal nodules or masses. Pleural space: No pleural effusion. No pneumothorax. Heart: The heart is unremarkable. No cardiomegaly. No pericardial effusion. Mediastinum: No mediastinal hematoma. No pneumomediastinum. Small hiatal hernia. Aorta: No evidence for aortic aneurysm or aortic dissection. Other arteries: The pulmonary arteries are unremarkable. Other veins: The pulmonary veins are unremarkable. Lymph nodes: No lymphadenopathy. Bones/joints: Multilevel degenerative changes of varying severity in the visualized spine. Soft tissues: Surgical clips in the left axilla. No acute abnormality in the extrathoracic soft tissues. IMPRESSION: 1. No acute cardiopulmonary process. 2. Low density nodule in right lobe of the thyroid measuring 9.6 mm. No follow-up is recommended. 3. Small hiatal hernia. 4. Incidental/nonacute findings are listed in the report. COMMENTS: Consistent with the [employer]'s Incidental Findings Committee white paper (J Am Alverto Radiol 2015): In patients aged 35 years and older with an incidental thyroid nodule equal to or greater than 1.[address], MRI or extrathyroidal US, further evaluation with dedicated thyroid US is recommended for patients with normal life expectancy and without comorbidities. For smaller nodules without suspicious features, no further evaluation or follow up is recommended. PROCEDURE INFORMATION: Exam: CT Abdomen And Pelvis With Contrast Exam date and time: 09/10/2019 11:33 PM Age: 43 years old Clinical indication: Other: Anemia; Shortness of breath; Prior surgery; Surgery type: Appendectomy, hernia repair; Additional info: Shortness of breath, anemia TECHNIQUE: Imaging protocol: Computed tomography of the abdomen and pelvis with intravenous contrast. Sagittal and coronal reformatted images were created and reviewed. Total DLP: 1143.53 mGy-cm Radiation optimization: All CT scans at this facility use at least one of these dose optimization techniques: automated exposure control; mA and/or kV adjustment per patient size (includes targeted exams where dose is matched to clinical indication); or iterative reconstruction. Contrast material: OMNI 300; Contrast volume: 95 ml; Contrast route: 18G; COMPARISON: CR XR chest 1V portable [id number] 09/01/2019 2:00 AM FINDINGS: Liver: Diffuse, mildly decreased attenuation in the liver. Findings are consistent with mild fatty infiltration. Gallbladder and bile ducts: The gallbladder is unremarkable. No biliary ductal dilatation. Pancreas: The pancreas is unremarkable. No pancreatic ductal dilatation. Spleen: The spleen is unremarkable. Adrenals: The right and left adrenal glands are unremarkable. Kidneys and ureters: Subcentimeter hypodense focus in the right kidney that is too small to characterize, however likely represents a small cyst. The left kidney is unremarkable. The right and left ureters are unremarkable. Stomach and bowel: Small hiatal hernia. Fluid within the small bowel and colon without evidence of mesenteric lymphadenopathy or bowel wall thickening. Appendix: Appendix not definitely visualized. No inflammatory changes in the pericecal region however. Intraperitoneal space: No free intraperitoneal air. No ascites. No loculated fluid collections to suggest an abscess. Vasculature: Mild atherosclerotic changes in the visualized arteries. No evidence for aortic aneurysm or aortic dissection. Hepatic veins, portal veins, splenic vein, and SMV are patent. Lymph nodes: No lymphadenopathy. Bladder: Unremarkable as visualized. Reproductive: Nonspecific parenchymal calcifications in the prostate gland. Bones/joints: Mild degenerative changes at both the right and left hips. Multilevel degenerative changes of varying severity in the visualized spine. Old, severe compression deformity of L1. 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 Focal kyphosis of the spine at L1. Soft tissues: No acute abnormality in the extra-abdominal soft tissues. CT/CT chest abd pel w con* IMPRESSION: 1. Fluid within the small bowel and colon without evidence of mesenteric lymphadenopathy or bowel wall thickening. This may reflect viral gastroenteritis in the appropriate clinical situation. 2. Mild fatty infiltration of the liver. 3. Small hiatal hernia. 4. Old, severe compression deformity of L1. 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 Focal kyphosis of the spine at L1. 5. Incidental/nonacute findings are listed in the report. COMMENTS: Consistent with the [employer]'s Incidental Findings Committee white paper (J Am Alverto Radiol 2018): Any incidental cystic renal lesion classified in this report as too small to characterize or simple appearing is likely a benign cyst. No follow-up imaging is recommended for these lesions per consensus recommendations based on imaging criteria. Radiation Dose CTDIVOL = (mGy): DLP = 1143.53 1143.53 (mGy-cm) Dictated By: Tammi Ferreira MD Signed By: Tammi Ferreira MD Signed Date/Time: 09/11/1936 DD/ EKG Data^: EKG 2: Attestation: I personally reviewed and interpreted this EKG as follows: EKG Interpretation Date: 09/11/19 EKG interpretation time: 02:00 Interpretation: Normal sinus rhythm at 85 beats a minute, normal axis, normal intervals, no blocks, normal QTC. No acute ST-T wave changes. Discharge Plan Discharge Patient Disposition: Home, Self-Care Clinical Impression: Acute dyspnea Condition: Stable Prescriptions: No Action Thera 400 mcg Tablet 1 tab PO DAILY Qty: 30 RF: 0 lithium carbonate 300 mg capsule See Rx Instructions .ROUTE .COMPLEX RF: 0 trazodone 100 mg Tablet 100 mg PO BEDTIME 30 Days Qty: 30 RF: 1 propranolol 20 mg Tablet 20 mg PO TID PRN (Reason: Anxiety) 30 Days Qty: 30 RF: 1 fluoxetine 20 mg Capsule 20 mg PO DAILY 30 Days Qty: 30 RF: 1 Discharge Orders: Discharge Order (Routine); Ordered 09/11/19 Ordered By: Priscilla Obando Referrals: Isabel Urbina MD [Primary Care Provider] - 1-3 days Discharge Diet: Advance as tolerated Discharge Activity: Increase activity as tolerated Patient Instructions: Dyspnea (ED) Activity Restrictions/Additional Instructions: Please return to the ER immediately for any of the signs or symptoms listed on your discharge instruction sheets, worsening/changing of your symptoms, you are not getting better as quickly as expected, or for ANY other cause or concerns. Coding Level of Care Code ED Cake Maker for Chg Fwd Exam Comprehensive
[2019-09-10] MEDS: sodium chloride 0.9% 1,000 ML 999 ML IV (22:15)
[2019-09-10 22:55] VITALS: BP 131/99; PULSE 94; RESP 16; O2SAT 99
[2019-09-10 23:13] LABS: Amphetamines Screen Urine Negative (Negative); Barbiturates Screen Urine Negative (Negative); Benzodiazepines Screen Urine Positive (Negative); Cocaine Screen Urine Negative (Negative); Opiate Screen Urine Negative (Negative); PCP Screen Urine Negative (Negative); THC Screen Urine Negative (Negative)
--- NOTE | 2019-09-10 23:30 | CTR_ITS ---
PROCEDURE INFORMATION: Exam: CT Chest With Contrast Exam date and time: 09/10/2019 11:33 PM Age: 43 years old Clinical indication: Other: Anemia; Shortness of breath; Prior surgery; Surgery type: Appendectomy, hernia repair; Additional info: Shortness of breath, anemia TECHNIQUE: Imaging protocol: Computed tomography of the chest with intravenous contrast. Sagittal and coronal reformatted images were created and reviewed. Total DLP: 1143.53 mGy-cm Radiation optimization: All CT scans at this facility use at least one of these dose optimization techniques: automated exposure control; mA and/or kV adjustment per patient size (includes targeted exams where dose is matched to clinical indication); or iterative reconstruction. Contrast material: OMNI 300; Contrast volume: 95 ml; Contrast route: 18G; COMPARISON: CR XR chest 1V portable [id number] 09/01/2019 2:00 AM FINDINGS: Thyroid: Low density nodule in right lobe of the thyroid measuring 9.6 mm. Lungs: Tracheobronchial structures are patent. No focal consolidation. No pulmonary edema. There is linear scarring in the right lower lobe. No pulmonary parenchymal nodules or masses. Pleural space: No pleural effusion. No pneumothorax. Heart: The heart is unremarkable. No cardiomegaly. No pericardial effusion. Mediastinum: No mediastinal hematoma. No pneumomediastinum. Small hiatal hernia. Aorta: No evidence for aortic aneurysm or aortic dissection. Other arteries: The pulmonary arteries are unremarkable. Other veins: The pulmonary veins are unremarkable. Lymph nodes: No lymphadenopathy. Bones/joints: Multilevel degenerative changes of varying severity in the visualized spine. Soft tissues: Surgical clips in the left axilla. No acute abnormality in the extrathoracic soft tissues. IMPRESSION: 1. No acute cardiopulmonary process. 2. Low density nodule in right lobe of the thyroid measuring 9.6 mm. No follow-up is recommended. 3. Small hiatal hernia. 4. Incidental/nonacute findings are listed in the report. COMMENTS: Consistent with the [employer]'s Incidental Findings Committee white paper (J Am Alverto Radiol 2015): In patients aged 35 years and older with an incidental thyroid nodule equal to or greater than 1.[address], MRI or extrathyroidal US, further evaluation with dedicated thyroid US is recommended for patients with normal life expectancy and without comorbidities. For smaller nodules without suspicious features, no further evaluation or follow up is recommended. PROCEDURE INFORMATION: Exam: CT Abdomen And Pelvis With Contrast Exam date and time: 09/10/2019 11:33 PM Age: 43 years old Clinical indication: Other: Anemia; Shortness of breath; Prior surgery; Surgery type: Appendectomy, hernia repair; Additional info: Shortness of breath, anemia TECHNIQUE: Imaging protocol: Computed tomography of the abdomen and pelvis with intravenous contrast. Sagittal and coronal reformatted images were created and reviewed. Total DLP: 1143.53 mGy-cm Radiation optimization: All CT scans at this facility use at least one of these dose optimization techniques: automated exposure control; mA and/or kV adjustment per patient size (includes targeted exams where dose is matched to clinical indication); or iterative reconstruction. Contrast material: OMNI 300; Contrast volume: 95 ml; Contrast route: 18G; COMPARISON: CR XR chest 1V portable [id number] 09/01/2019 2:00 AM FINDINGS: Liver: Diffuse, mildly decreased attenuation in the liver. Findings are consistent with mild fatty infiltration. Gallbladder and bile ducts: The gallbladder is unremarkable. No biliary ductal dilatation. Pancreas: The pancreas is unremarkable. No pancreatic ductal dilatation. Spleen: The spleen is unremarkable. Adrenals: The right and left adrenal glands are unremarkable. Kidneys and ureters: Subcentimeter hypodense focus in the right kidney that is too small to characterize, however likely represents a small cyst. The left kidney is unremarkable. The right and left ureters are unremarkable. Stomach and bowel: Small hiatal hernia. Fluid within the small bowel and colon without evidence of mesenteric lymphadenopathy or bowel wall thickening. Appendix: Appendix not definitely visualized. No inflammatory changes in the pericecal region however. Intraperitoneal space: No free intraperitoneal air. No ascites. No loculated fluid collections to suggest an abscess. Vasculature: Mild atherosclerotic changes in the visualized arteries. No evidence for aortic aneurysm or aortic dissection. Hepatic veins, portal veins, splenic vein, and SMV are patent. Lymph nodes: No lymphadenopathy. Bladder: Unremarkable as visualized. Reproductive: Nonspecific parenchymal calcifications in the prostate gland. Bones/joints: Mild degenerative changes at both the right and left hips. Multilevel degenerative changes of varying severity in the visualized spine. Old, severe compression deformity of L1. 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 Focal kyphosis of the spine at L1. Soft tissues: No acute abnormality in the extra-abdominal soft tissues. CT/CT chest abd pel w con* IMPRESSION: 1. Fluid within the small bowel and colon without evidence of mesenteric lymphadenopathy or bowel wall thickening. This may reflect viral gastroenteritis in the appropriate clinical situation. 2. Mild fatty infiltration of the liver. 3. Small hiatal hernia. 4. Old, severe compression deformity of L1. 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 Focal kyphosis of the spine at L1. 5. Incidental/nonacute findings are listed in the report. COMMENTS: Consistent with the [employer]'s Incidental Findings Committee white paper (J Am Alverto Radiol 2018): Any incidental cystic renal lesion classified in this report as too small to characterize or simple appearing is likely a benign cyst. No follow-up imaging is recommended for these lesions per consensus recommendations based on imaging criteria. Radiation Dose CTDIVOL = (mGy): DLP = 1143.53~1143.53 (mGy-cm)
[2019-09-10 23:46] VITALS: BP 151/100; PULSE 120; RESP 18
--- NOTE | 2019-09-10 23:48 | PC.NURSE ---
pt. care and report given to Jarod GROSSMAN
[2019-09-10] MEDS: iohexol 300 mg/mL 100 mL Btl IV (23:59)
[2019-09-11] VITALS (70 sets, daily range): BP systolic 129–155; BP diastolic 87–107; PULSE 79–126; O2SAT 95–100
--- NOTE | 2019-09-11 00:04 | PC.NURSE ---
Patient attempting to urinate. Pt placed in blue scrubs with sitter at bedside. All items not utilized removed from room.
[2019-09-11 00:12] LABS: Alanine Aminotransferase 103 U/L (0-41); Albumin Level 4.4 g/dL (3.5-5.2); Alkaline Phosphatase 119 IU/L (40-130); Anion Gap 15.8 (5-19); Aspartate Amino Transferase 126 U/L (0-40); Blood Urea Nitrogen 9 mg/dL (6-20); Calcium 9.5 mg/dL (8.5-10.5); Carbon Dioxide 26 mmol/L (22-29); Chloride 100 mmol/L (98-107); Glomerular Filtration Rate 147.8 mL/min (90-130); Glucose 98 mg/dL (65-115); Lipase 35 U/L (13-60); Magnesium 1.9 mg/dL (1.7-2.3); Osmolality Calculated 282 mOsm/kg (285-295); Potassium 3.8 mmol/L (3.5-5.1); Sodium 138 mmol/L (136-145); Total Bilirubin 1.4 mg/dL (0.15-1.2); Total Protein 7.4 g/dL (6.6-8.7)
[2019-09-11 00:13] LABS: Alcohol Level < 10 mg/dL (0-10)
[2019-09-11 00:14] LABS: Lithium 0.1 mmol/L (0.6-1.2)
[2019-09-11 00:17] LABS: Hemoglobin 15.8 g/dL (11.7-16.6)
[2019-09-11 00:59] LABS: Troponin T (5th) Once 12 ng/mL (0-15)
[2019-09-11 01:19] LABS: Troponin(5th) Baseline 12 ng/mL (0-15)
[2019-09-11] MEDS: sodium chloride 0.9% 1,000 ML 999 ML IV ×2 (01:27→01:28)
[2019-09-11 01:35] LABS: D Dimer 0.58 ug/mIFEU (0-0.59)
[2019-09-11 02:14] LABS: Troponin 5 2HR 11.59 ng/mL (0-15)
[2019-09-11 03:23] LABS: Troponin 5 2HR Delta -0.41 ABS# (0-10)
== END 2019-09-11 05:54 | disposition home or self-care (01) ==
PROVIDERS: Family Medicine; Emergency Provider Emergency Medicine; PCP Family Medicine
DX: R06.00 Dyspnea, unspecified (principal); F17.200 Nicotine dependence, unspecified, uncomplicated
CPT/HCPCS: 12345; 71260; 74177; 80053; 80178; 80306; 80307; 83690; 83735; 84484; 85014; 85018; 85025; 85378; 96360; 96361; 99284; 99285; J7030; Q9967

== ENCOUNTER 2019-09-25 15:22 | Emergency (ER) | payer SELFPAY ==
[2019-09-25 15:24] VITALS: BP 114/63; PULSE 90; RESP 17; TEMP 36.7; O2SAT 85; BMI 27.1
[2019-09-25 15:50] LABS: Basophils # 0.1 10^3/uL (0.0-0.1); Basophils % 0.7 %; Eosinophils # 0.1 10^3/uL (0.0-0.8); Eosinophils % 1.3 %; Hemoglobin 15.8 g/dL (11.7-16.6); Lymphocytes # 2.7 10^3/uL (0.8-4.8); Lymphocytes % 29.6 %; Mean Corpuscular HGB Conc 32.9 g/dL (30.0-36.0); Mean Corpuscular Hemoglobin 37.1 pg (28.0-34.0); Mean Corpuscular Volume 112.7 fL (80-94); Mean Platelet Volume 8.9 fL (7.4-10.4); Monocytes % 10.9 %; Neutrophils # 5.2 10^3/uL (1.8-7.7); Neutrophils % 57.3 %; Nucleated Red Blood Cells % 0 %; Platelet Count 352 10^3/cmm (130-400); Red Blood Count 4.26 10^6/uL (4.1-5.3); Red Cell Distribution Width 12.4 % (12.1-15.1)
[2019-09-25 16:04] LABS: Lactate (Lactic Acid level) 2.2 mmol/L (0.5-2.2)
--- NOTE | 2019-09-25 16:08 | PC.NURSE ---
Pt did not respond to ammonia stick.
[2019-09-25 16:09] VITALS: BP 116/72; PULSE 98; RESP 16; O2SAT 94
[2019-09-25 16:09] LABS: Alanine Aminotransferase 38 U/L (0-41); Albumin Level 4.5 g/dL (3.5-5.2); Alcohol Level 230 mg/dL (0-10); Alkaline Phosphatase 96 IU/L (40-130); Anion Gap 17.7 (5-19); Aspartate Amino Transferase 22 U/L (0-40); Blood Urea Nitrogen 11 mg/dL (6-20); C Reactive Protein 1.2 mg/L (0.0-4.9); Calcium 8.9 mg/dL (8.5-10.5); Carbon Dioxide 29 mmol/L (22-29); Chloride 102 mmol/L (98-107); Globulin 3.2 g/dL (1.3-4.6); Glomerular Filtration Rate 123.1 mL/min (90-130); Glucose 78 mg/dL (65-115); Lipase 27 U/L (13-60); Osmolality Calculated 295 mOsm/kg (285-295); Potassium 3.7 mmol/L (3.5-5.1); Sodium 145 mmol/L (136-145); Total Bilirubin 0.2 mg/dL (0.15-1.2); Total Protein 7.7 g/dL (6.6-8.7)
[2019-09-25 17:08] LABS: Add Urine Microscopic? NO
[2019-09-25 17:12] LABS: Bilirubin Urine Neg (NEGATIVE); Blood Urine Neg (Negative); Glucose Urine UA Norm (Normal); Ketones Urine Negative (Negative); Nitrate Urine Negative (Negative); Protein Urine Neg (Negative); Urine Appearance Clear (CLEAR); Urine Color Yellow (Yellow); pH Urine 5 (5-7)
[2019-09-25 17:13] LABS: Leukocyte Esterase Urine Negative (Negative); Urobilinogen Urine Norm (Negative)
[2019-09-25 17:21] LABS: Amphetamines Screen Urine Negative (Negative); Barbiturates Screen Urine Negative (Negative); Benzodiazepines Screen Urine Positive (Negative); Cocaine Screen Urine Negative (Negative); Opiate Screen Urine Negative (Negative); PCP Screen Urine Negative (Negative); THC Screen Urine Positive (Negative)
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
--- NOTE | 2019-09-25 19:17 | PC.NURSE ---
Pt. ambulatory to bathroom without assist. Gait stable. Continuing to await sobriety
[2019-09-25 20:09] LABS: Alcohol Level 126 mg/dL (0-10)
[2019-09-25 20:32] VITALS: BP 124/83; PULSE 89; RESP 17; O2SAT 96
== END 2019-09-25 20:34 | disposition home or self-care (01) ==
PROVIDERS: Emergency Provider Family Medicine; PCP Family Medicine
DX: F10.20 Alcohol dependence, uncomplicated (principal); Y90.7 Blood alcohol level of 200-239 mg/100 ml; F17.210 Nicotine dependence, cigarettes, uncomplicated
CPT/HCPCS: 12345; 36415; 80053; 80306; 80307; 81003; 83605; 83690; 85025; 86140; 99282; 99283; A9270

== ENCOUNTER 2019-09-29 23:03 | Inpatient (IN) | payer SELFPAY ==
[2019-09-29 23:09] VITALS: PULSE 112; RESP 18; O2SAT 98; BMI 21.7
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
--- NOTE | 2019-09-29 23:11 | XR_ITS ---
WS: [id number] PORTABLE CHEST HISTORY: cough COMPARISON: 09/01/2019 Lungs are clear and well expanded. No pleural effusion or pneumothorax. Cardiac size: Normal. Mediastinum/Aorta: Normal mediastinum. No osseous abnormality seen. XR/XR chest 1V portable [id number] IMPRESSION: Unremarkable portable chest.
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
[2019-09-29] MEDS: LORazepam 2 mg/mL INJ 1 mL IM (23:33)
[2019-09-29] MEDS: haloperidol inj 5 mg/mL INJ 1 mL IM (23:34)
[2019-09-29 23:44] LABS: Basophils # 0.1 10^3/uL (0.0-0.1); Basophils % 0.7 %; Eosinophils # 0.1 10^3/uL (0.0-0.8); Eosinophils % 0.8 %; Hematocrit 45.6 % (42.0-52.0); Hemoglobin 15.6 g/dL (11.7-16.6); Lymphocytes # 2.1 10^3/uL (0.8-4.8); Mean Corpuscular HGB Conc 34.2 g/dL (30.0-36.0); Mean Corpuscular Hemoglobin 36.9 pg (28.0-34.0); Mean Corpuscular Volume 107.8 fL (80-94); Mean Platelet Volume 8.7 fL (7.4-10.4); Monocytes # 1.2 10^3/uL (0.2-0.9); Monocytes % 9.5 %; Neutrophils # 8.8 10^3/uL (1.8-7.7); Neutrophils % 71.7 %; Nucleated Red Blood Cells % 0 %; Platelet Count 403 10^3/cmm (130-400); Red Blood Count 4.23 10^6/uL (4.1-5.3); Red Cell Distribution Width 12.3 % (12.1-15.1); White Blood Count 12.3 10^3/uL (4.0-10.0)
[2019-09-30] VITALS (14 sets, daily range): BP systolic 82–126; BP diastolic 53–84; PULSE 74–94; RESP 17–20; TEMP 36.6–37.2; O2SAT 84–100
[2019-09-30 00:02] LABS: Lithium 0.1 mmol/L (0.6-1.2)
[2019-09-30 00:03] LABS: Acetaminophen < 10.0 ug/mL (10-30); Alanine Aminotransferase 44 U/L (0-41); Albumin Level 4.2 g/dL (3.5-5.2); Alkaline Phosphatase 124 IU/L (40-130); Anion Gap 21.5 (5-19); Aspartate Amino Transferase 71 U/L (0-40); Blood Urea Nitrogen 16 mg/dL (6-20); Calcium 9.7 mg/dL (8.5-10.5); Carbon Dioxide 24 mmol/L (22-29); Chloride 99 mmol/L (98-107); Globulin 3.1 g/dL (1.3-4.6); Glomerular Filtration Rate 92.1 mL/min (90-130); Glucose 85 mg/dL (65-115); Magnesium 2.2 mg/dL (1.7-2.3); Osmolality Calculated 288 mOsm/kg (285-295); Phenytoin Dilantin 0.8 ug/mL (10-20); Potassium 3.5 mmol/L (3.5-5.1); Salicylate 5.5 mg/dL (3-10); Sodium 141 mmol/L (136-145); Total Bilirubin 0.5 mg/dL (0.15-1.2); Total Protein 7.3 g/dL (6.6-8.7); Valproic Acid Level 2.8 mcg/mL (50-100)
[2019-09-30 00:05] LABS: Alcohol Level 326 mg/dL (0-10)
[2019-09-30] MEDS: folic acid 1 MG, multivitamin inj 10 ML, thiamine 100 MG in sodium chloride 0.9% 1,000 ML 252.8 MG IV (00:19)
[2019-09-30 03:11] LABS: Amphetamines Screen Urine Negative (Negative); Barbiturates Screen Urine Negative (Negative); Benzodiazepines Screen Urine Positive (Negative); Cocaine Screen Urine Negative (Negative); Opiate Screen Urine Negative (Negative); PCP Screen Urine Negative (Negative); THC Screen Urine Negative (Negative)
[2019-09-30 03:24] LABS: Urine Appearance Clear (CLEAR); Urine Color Yellow (Yellow); pH Urine 5 (5-7)
[2019-09-30 03:25] LABS: Bacteria Urine 1+; Bilirubin Urine Neg (NEGATIVE); Blood Urine 2+ (Negative); Glucose Urine UA Norm (Normal); Ketones Urine 1+ (Negative); Leukocyte Esterase Urine Negative (Negative); Nitrate Urine Negative (Negative); Protein Urine 1+ (Negative); RBC Urine 0-4 /hpf (0-2); Squamous Epithelial Cell Urine 0-4 (0-5); Urobilinogen Urine Norm (Negative)
[2019-09-30] MEDS: cefTRIAXone 1,000 MG in sodium chloride 0.9% (plus) 50 ML 100 MG IV (04:31)
[2019-09-30] MEDS: hyDROXYzine 25 mg Capsule 50 MG PO (11:50)
--- NOTE | 2019-09-30 11:50 | PC.NURSE ---
PRN VISTARIL VISTARIL 50MG PO PER PATIENT C/O ANXIETY. WILL CONTINUE TO MONITOR FOR MEDICATION EFFECTIVENESS.
--- NOTE | 2019-09-30 12:40 | PC.NURSE ---
PRN VISTARIL FOLLOW UP MEDICATION EFFECTIVE. NO FURTHER C/O ANXIETY.
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
[2019-10-01 06:00] VITALS: BP 138/83; PULSE 86; RESP 17; TEMP 36.5; O2SAT 98
[2019-10-01] MEDS: thiamine 100 mg Tablet PO (10:30)
[2019-10-01] MEDS: hyDROXYzine 25 mg Capsule 50 MG PO (10:30)
[2019-10-01] MEDS: multivitamin therapeutic Tablet 1 TAB PO (10:30)
[2019-10-01] MEDS: folic acid 1 mg Tablet PO (10:30)
--- NOTE | 2019-10-01 10:32 | PC.NURSE ---
PRN VISTATIL 50 MG GIVEN PO PER PT C/O INCREASED ANXIETY WILL CONT TO MONITOR.
--- NOTE | 2019-10-01 11:30 | PC.NURSE ---
PRN VISTARIL EFFECTIVE NO FURTHER C/O ANXIETY
[2019-10-01 13:21] VITALS: BP 116/75; PULSE 101; RESP 20; TEMP 36.7; O2SAT 97
[2019-10-01] MEDS: nicotine 21 mg Patch 1 PATCH TRANSDERMA (14:21)
[2019-10-01] MEDS: acetaminophen 325 mg Tablet 650 MG PO ×2 (16:50→21:36)
[2019-10-01 21:28] VITALS: BP 137/96; PULSE 89; RESP 17; TEMP 36.8; O2SAT 97
[2019-10-01] MEDS: trazodone 50 mg Tablet PO (21:36)
[2019-10-02 06:00] VITALS: BP 129/55; PULSE 84; RESP 16; TEMP 36.6; O2SAT 99
[2019-10-02] MEDS: multivitamin therapeutic Tablet 1 TAB PO (07:48)
[2019-10-02] MEDS: nicotine 2 mg Gum BUCCAL ×2 (07:48→11:13)
[2019-10-02] MEDS: thiamine 100 mg Tablet PO (07:48)
[2019-10-02] MEDS: folic acid 1 mg Tablet PO (07:48)
[2019-10-02] MEDS: acetaminophen 325 mg Tablet 650 MG PO ×2 (08:26→12:34)
[2019-10-02 14:00] VITALS: BP 129/86; PULSE 89; RESP 20; TEMP 36.9; O2SAT 98
[2019-10-02] MEDS: nicotine 21 mg Patch 1 PATCH TRANSDERMA (15:32)
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
[2019-10-02 16:31] VITALS: BP 129/55; PULSE 84; RESP 16; TEMP 36.6; O2SAT 99
== END 2019-10-02 17:05 | disposition home or self-care (01) | DRG 897 ==
LOC: ER 09-30 02:40 → NP 09-30 03:33
PROVIDERS: Admitting Provider Psychiatry & Neurology Psychiatry; Emergency Provider Emergency Medicine; PCP Family Medicine; Visit Provider Psychiatry & Neurology Psychiatry
DX: F10.229 Alcohol dependence with intoxication, unspecified (principal); R45.851 Suicidal ideations; F15.229 Other stimulant dependence with intoxication, unspecified; F10.239 Alcohol dependence with withdrawal, unspecified; F10.221 Alcohol dependence with intoxication delirium; F12.10 Cannabis abuse, uncomplicated; Y90.8 Blood alcohol level of 240 mg/100 ml or more; F31.9 Bipolar disorder, unspecified; F17.210 Nicotine dependence, cigarettes, uncomplicated
CPT/HCPCS: 12345; 70450; 71045; 72125; 80053; 80156; 80164; 80178; 80185; 80306; 80307; 81001; 83735; 85025; 96372; 99284; J0696; J1630; J2060; J3411; J3490; J7030

== ENCOUNTER 2019-11-13 19:04 | Emergency (ER) | payer SELFPAY ==
[2019-11-13] VITALS (28 sets, daily range): BP systolic 97–125; BP diastolic 58–84; PULSE 78–105; RESP 11–34; TEMP 36.7; O2SAT 94–100; BMI 24.0
--- NOTE | 2019-11-13 19:13 | ECG_ITS ---
Measurements Intervals [place] Rate: 96 P: 58 PA: 147 QRS: 70 QRSD: 87 T: 69 QT: 332 QTc: 420 SINUS RHYTHM Compared to ECG 09/04/2019 05:31:12 Early repolarization no longer present Electronically Signed On 11-14-2019 15:00:50 CDT by Jesus Tellez M.D. [email or web address]
--- NOTE | 2019-11-13 19:13 | XRR_ITS ---
PROCEDURE INFORMATION: Exam: XR Chest, 1 View Exam date and time: 11/13/2019 7:34 PM Age: 44 years old Clinical indication: Other: AMS TECHNIQUE: Imaging protocol: XR of the chest Views: 1 view. COMPARISON: No relevant prior studies available. FINDINGS: Lung volumes are somewhat low. Otherwise no focal pulmonary consolidation is demonstrated on this single frontal image. No significant obscuration of the lateral costophrenic angles is demonstrated. No significant vascular congestion is demonstrated. Visualized cardiac silhouette size appears mildly enlarged, accentuated by low lung volumes. XR/XR chest 1V portable [id number] IMPRESSION: No definite acute pulmonary process is demonstrated. Visualized cardiac silhouette size appears mildly enlarged, accentuated by low lung volumes.
--- NOTE | 2019-11-13 19:14 | ED_ITS ---
HPI - Altered Mental Status General: Chief Complaint: Alcohol Stated Complaint: ETOH/ UNKNOWN SUBSTANCE ABUSE Time Seen by Provider: 11/13/19 19:10 History of Present Illness: HPI narrative: 44-year-old male well-known to the ER. He has a history of alcohol and other mixed polysubstance abuse. EMS was called to [facility] after the patient about a pint of liquor and set outside to drink it. He has been minimally responsive since their arrival. He was at [facility], now sleeping no other real history is available. He did urinate himself in the ambulance on the way here. He received 1 L of fluid, and 100 of thiamine. MD complaint: altered mental status and intoxication Onset (ago): hour(s) Timing confirmed by: other (EMS and bystanders) Severity: severe Context: alcohol abuse and drug abuse Review of Systems General: Reports: ROS unobtainable due to mental status PFS ED PFSH: Medical History (Updated 11/14/19 @ 05:49 by Pete Mccurdy DO) Adjustment disorder with mixed disturbance of emotions and conduct Alcohol use disorder -Has known history of alcohol abuse&DT Bipolar 1 disorder, manic, mild Depressive disorder, not elsewhere classified Methamphetamine abuse -UDS positive for amphetamines/THC Surgical History H/O hernia repair History of appendectomy Family History Other Alcoholism /alcohol abuse Social History Smoking and tobacco status: unknown if ever smoked Alcohol intake: current Current gender identity: Male Physical Exam Const: GENERAL APPEARANCE: disheveled and odor of alcohol detected ORIENTATION/CONSCIOUSNESS: Yes patient obtunded HENMT: COMMON NORMALS: normocephalic, external ears normal and Normal external nose present HEAD & SCALP: normocephalic FACE & SINUS: normal facial exam NOSE: Normal external nose present and No nasal discharge present EXTERNAL EAR: Yes external ears normal MOUTH: tongue normal Eye: COMMON NORMALS: Equal, round and reactive pupils present, EOMs intact bilaterally and conjunctivae normal EYELID: eyelids normal CONJUNCTIVA: Yes conjunctivae normal PUPIL: Yes Equal, round and reactive pupils present Neck/C-Spine: GENERAL: No tracheal deviation Chest: COMMONS NORMALS: normal inspection of the chest CHEST: No tenderness Resp: COMMON NORMALS: negative for clear to auscultation bilaterally EFFORT & INSPECTION: No tachypneic, No respiratory distress, No retractions, No uses accessory muscles and No tracheal deviation AUSCULTATION: not clear to auscultation bilaterally, rhonchi, no wheezes and lung sounds not diminished Cardio: COMMON NORMALS: regular rate and regular rhythm RATE: regular rate RHYTHM: regular rhythm HEART SOUNDS: no murmurs PERIPHERAL PULSES: radial pulses present GI: INSPECTION: No abdominal distension AUSCULTATION: No Hyperactive bowel sounds present and No Hypoactive bowel sounds present PALPATION: No Guarding due to palpation present (GI) and No Rigid due to palpation Psych: APPEARANCE: Yes unkempt ATTITUDE: Yes calm ACTIVITY/MOTOR BEHAVIOR: Yes other SPEECH: Yes minimal ATTENTION/CONCENTRATION: Yes attention grossly impaired and Yes concentration grossly impaired Skin: COMMON NORMALS: no rashes or lesions noted GENERAL SKIN EXAM: no dimitrios hes or lesions noted Course Vital Signs: Vital signs: Vital Signs Temperature 98.0 F 11/13/19 19:15 Pulse Rate 78 11/13/19 22:35 Respiratory Rate 16 11/13/19 22:35 Blood Pressure 110/78 11/13/19 22:35 Pulse Oximetry 96 11/13/19 22:35 MDM - Altered Mental Status MDM Narrative: Medical decision making narrative: 44-year-old male presents essentially obtunded, after significant alcohol intake. His initial alcohol level was in the 400s. He began to wake up, become agitated, he shouted expletives in the room. He got up and walked around the ER. He was making sense at this point. His alcohol level was falling. He states that he was not suicidal, not homicidal. He states that he is going to leave the emergency room . He noticed the day, month, and where he is. His alcohol level is falling. He signed an AMA form. Lab Data: Labs: Lab Results 11/13/19 11/13/19 11/13/19 Range/Units 19:11 19:11 19:11 WBC 6.3 (4.0-10.0) 10^3/ uL RBC 4.02 L (4.1-5.3) 10^6/u L Hgb 12.7 (11.7-16.6) g/dL Hct 40.9 L (42.0-52.0) % MCV 101.7 H (80-94) fL MCH 31.6 (28.0-34.0) pg MCHC 31.1 (30.0-36.0) g/dL RDW 15.8 H (12.1-15.1) % Plt Count 381 (130-400) 10^3/c mm MPV 9.0 (7.4-10.4) fL Neut % (Auto) 63.0 % Lymph % (Auto) 25.3 % [place] % (Auto) 9.4 % Eos % (Auto) 1.4 % Baso % (Auto) 0.6 % Neut # (Auto) 4.0 (1.8-7.7) 10^3/u L Lymph # (Auto) 1.6 (0.8-4.8) 10^3/u L [place] # (Auto) 0.6 (0.2-0.9) 10^3/u L Eos # (Auto) 0.1 (0.0-0.8) 10^3/u L Baso # (Auto) 0.0 (0.0-0.1) 10^3/u L Nucleated RBC % (a uto) 0 % Nucleated RBCs # 0.0 /100WBC PT 12.60 (10.5-13.3) SECO NDS INR 0.91 (0.8-1.2) Sodium 143 (136-145) mmol/L Potassium 3.6 (3.5-5.1) mmol/L Chloride 109 H (98-107) mmol/L Carbon Dioxide 22 (22-29) mmol/L Anion Gap 15.6 (5-19) BUN 14 (6-20) mg/dL Creatinine 0.7 (0.7-1.2) mg/dL GFR Calculation 123.1 (90-130) mL/min Glucose 105 (65-115) mg/dL Calculated Osmolal ity 293 (285-295) mOsm/k g Calcium 8.2 L (8.5-10.5) mg/dL Total Bilirubin 0.2 (0.15-1.2) mg/dL AST 19 (0-40) U/L ALT 18 (0-41) U/L Alkaline Phosphata se 94 (40-130) IU/L Ammonia (16-60) umol/L Total Protein 6.7 (6.6-8.7) g/dL Albumin 4.1 (3.5-5.2) g/dL Globulin 2.6 (1.3-4.6) g/dL Urine Color (Yellow) Urine Appearance (CLEAR) Urine pH (5-7) Ur Specific Gravit y (1.005-1.030) Urine Protein (Negative) Urine Glucose (UA) (Normal) Urine Ketones (Negative) Urine Blood (Negative) Urine Nitrate (Negative) Urine Bilirubin (NEGATIVE) Urine Urobilinogen (Negative) mg/dL Ur Leukocyte Tammy ase (Negative) Salicylates < 0.3 L (3-10) mg/dL Urine Opiates Scre en (Negative) ng/mL Acetaminophen < 5.0 L (10-30) ug/mL Ur Barbiturates Sc reen (Negative) ng/mL Ur Phencyclidine S crn (Negative) ng/mL Ur Amphetamines Sc reen (Negative) ng/mL U Benzodiazepines Scrn (Negative) ng/mL Urine Cocaine Scre en (Negative) ng/mL U Marijuana (THC) Screen (Negative) ng/mL Ethyl Alcohol 418 H* (0-10) mg/dL 11/13/19 11/13/19 11/13/19 Range/Units 19:25 21:26 21:26 WBC (4.0-10.0) 10^3/ uL RBC (4.1-5.3) 10^6/u L Hgb (11.7-16.6) g/dL Hct (42.0-52.0) % MCV (80-94) fL MCH (28.0-34.0) pg MCHC (30.0-36.0) g/dL RDW (12.1-15.1) % Plt Count (130-400) 10^3/c mm MPV (7.4-10.4) fL Neut % (Auto) % Lymph % (Auto) % [place] % (Auto) % Eos % (Auto) % Baso % (Auto) % Neut # (Auto) (1.8-7.7) 10^3/u L Lymph # (Auto) (0.8-4.8) 10^3/u L [place]ens[place] # (Auto) (0.2-0.9) 10^3/u L Eos # (Auto) (0.0-0.8) 10^3/u L Baso # (Auto) (0.0-0.1) 10^3/u L Nucleated RBC % (a uto) % Nucleated RBCs # /100WBC PT (10.5-13.3) SECO NDS INR (0.8-1.2) Sodium (136-145) mmol/L Potassium (3.5-5.1) mmol/L Chloride (98-107) mmol/L Carbon Dioxide (22-29) mmol/L Anion Gap (5-19) BUN (6-20) mg/dL Creatinine (0.7-1.2) mg/dL GFR Calculation (90-130) mL/min Glucose (65-115) mg/dL Calculated Osmolal ity (285-295) mOsm/k g Calcium (8.5-10.5) mg/dL Total Bilirubin (0.15-1.2) mg/dL AST (0-40) U/L ALT (0-41) U/L Alkaline Phosphata se (40-130) IU/L Ammonia 35 (16-60) umol/L Total Protein (6.6-8.7) g/dL Albumin (3.5-5.2) g/dL Globulin (1.3-4.6) g/dL Urine Color Yellow (Yellow) Urine Appearance Clear (CLEAR) Urine pH 5 (5-7) Ur Specific Gravit y 1.010 (1.005-1.030) Urine Protein Neg (Negative) Urine Glucose (UA) Norm (Normal) Urine Ketones Negative (Negative) Urine Blood Neg (Negative) Urine Nitrate Negative (Negative) Urine Bilirubin Neg (NEGATIVE) Urine Urobilinogen Norm (Negative) mg/dL Ur Leukocyte Tammy ase Negative (Negative) Salicylates (3-10) mg/dL Urine Opiates Scre en Negative (Negative) ng/mL Acetaminophen (10-30) ug/mL Ur Barbiturates Sc reen Negative (Negative) ng/mL Ur Phencyclidine S crn Negative (Negative) ng/mL Ur Amphetamines Sc reen Negative (Negative) ng/mL U Benzodiazepines Scrn Negative (Negative) ng/mL Urine Cocaine Scre en Negative (Negative) ng/mL U Marijuana (THC) Screen Negative (Negative) ng/mL Ethyl Alcohol (0-10) mg/dL 11/13/19 Range/Units 21:45 WBC (4.0-10.0) 10^3/ uL RBC (4.1-5.3) 10^6/u L Hgb (11.7-16.6) g/dL Hct (42.0-52.0) % MCV (80-94) fL MCH (28.0-34.0) pg MCHC (30.0-36.0) g/dL RDW (12.1-15.1) % Plt Count (130-400) 10^3/c mm MPV (7.4-10.4) fL Neut % (Auto) % Lymph % (Auto) % [place] % (Auto) % Eos % (Auto) % Baso % (Auto) % Neut # (Auto) (1.8-7.7) 10^3/u L Lymph # (Auto) (0.8-4.8) 10^3/u L [place] # (Auto) (0.2-0.9) 10^3/u L Eos # (Auto) (0.0-0.8) 10^3/u L Baso # (Auto) (0.0-0.1) 10^3/u L Nucleated RBC % (a uto) % Nucleated RBCs # /100WBC PT (10.5-13.3) SECO NDS INR (0.8-1.2) Sodium (136-145) mmol/L Potassium (3.5-5.1) mmol/L Chloride (98-107) mmol/L Carbon Dioxide (22-29) mmol/L Anion Gap (5-19) BUN (6-20) mg/dL Creatinine (0.7-1.2) mg/dL GFR Calculation (90-130) mL/min Glucose (65-115) mg/dL Calculated Osmolal ity (285-295) mOsm/k g Calcium (8.5-10.5) mg/dL Total Bilirubin (0.15-1.2) mg/dL AST (0-40) U/L ALT (0-41) U/L Alkaline Phosphata se (40-130) IU/L Ammonia (16-60) umol/L Total Protein (6.6-8.7) g/dL Albumin (3.5-5.2) g/dL Globulin (1.3-4.6) g/dL Urine Color (Yellow) Urine Appearance (CLEAR) Urine pH (5-7) Ur Specific Gravit y (1.005-1.030) Urine Protein (Negative) Urine Glucose (UA) (Normal) Urine Ketones (Negative) Urine Blood (Negative) Urine Nitrate (Negative) Urine Bilirubin (NEGATIVE) Urine Urobilinogen (Negative) mg/dL Ur Leukocyte Tammy ase (Negative) Salicylates (3-10) mg/dL Urine Opiates Scre en (Negative) ng/mL Acetaminophen (10-30) ug/mL Ur Barbiturates Sc reen (Negative) ng/mL Ur Phencyclidine S crn (Negative) ng/mL Ur Amphetamines Sc reen (Negative) ng/mL U Benzodiazepines Scrn (Negative) ng/mL Urine Cocaine Scre en (Negative) ng/mL U Marijuana (THC) Screen (Negative) ng/mL Ethyl Alcohol 395 H* (0-10) mg/dL Discharge Plan Discharge Patient Disposition: Left Against Medical Advice Clinical Impression: Alcoholic intoxication Prescriptions: No Action Thera 400 mcg Tablet 1 tab PO DAILY Qty: 30 RF: 0 trazodone 100 mg Tablet 100 mg PO BEDTIME 30 Days Qty: 30 RF: 1 propranolol 20 mg Tablet 20 mg PO TID PRN (Reason: Anxiety) 30 Days Qty: 30 RF: 1 fluoxetine 20 mg Capsule 20 mg PO DAILY 30 Days Qty: 30 RF: 1 Referrals: Isabel Urbina MD [Primary Care Provider] - Interventions: ED Discharge Assessment Last Done: 11/13/19 22:35 ED Charges Last Done: 11/13/19 22:35 Discharge Date/Time: 11/13/19 22:43 Coding Level of Care Code ED Wire Threader for Chg Fwd Exam Comprehensive
[2019-11-13 19:28] LABS: Basophils % 0.6 %; Eosinophils # 0.1 10^3/uL (0.0-0.8); Eosinophils % 1.4 %; Hematocrit 40.9 % (42.0-52.0); Hemoglobin 12.7 g/dL (11.7-16.6); Lymphocytes # 1.6 10^3/uL (0.8-4.8); Lymphocytes % 25.3 %; Mean Corpuscular HGB Conc 31.1 g/dL (30.0-36.0); Mean Corpuscular Hemoglobin 31.6 pg (28.0-34.0); Mean Corpuscular Volume 101.7 fL (80-94); Monocytes # 0.6 10^3/uL (0.2-0.9); Monocytes % 9.4 %; Nucleated Red Blood Cells % 0 %; Platelet Count 381 10^3/cmm (130-400); Red Blood Count 4.02 10^6/uL (4.1-5.3); Red Cell Distribution Width 15.8 % (12.1-15.1); White Blood Count 6.3 10^3/uL (4.0-10.0)
[2019-11-13 19:31] LABS: INR 0.91 (0.8-1.2)
[2019-11-13 19:36] LABS: Alanine Aminotransferase 18 U/L (0-41); Albumin Level 4.1 g/dL (3.5-5.2); Alkaline Phosphatase 94 IU/L (40-130); Anion Gap 15.6 (5-19); Aspartate Amino Transferase 19 U/L (0-40); Blood Urea Nitrogen 14 mg/dL (6-20); Calcium 8.2 mg/dL (8.5-10.5); Carbon Dioxide 22 mmol/L (22-29); Chloride 109 mmol/L (98-107); Globulin 2.6 g/dL (1.3-4.6); Glomerular Filtration Rate 123.1 mL/min (90-130); Glucose 105 mg/dL (65-115); Osmolality Calculated 293 mOsm/kg (285-295); Potassium 3.6 mmol/L (3.5-5.1); Sodium 143 mmol/L (136-145); Total Bilirubin 0.2 mg/dL (0.15-1.2); Total Protein 6.7 g/dL (6.6-8.7)
[2019-11-13 19:41] LABS: Acetaminophen < 5.0 ug/mL (10-30); Salicylate < 0.3 mg/dL (3-10)
[2019-11-13 19:42] LABS: Alcohol Level 418 mg/dL (0-10)
[2019-11-13 19:44] LABS: Ammonia 35 umol/L (16-60)
[2019-11-13] MEDS: sodium chloride 0.9% 1,000 ML 999 ML IV (20:19)
[2019-11-13 22:13] LABS: Alcohol Level 395 mg/dL (0-10)
[2019-11-13 22:16] LABS: Add Urine Microscopic? NO
[2019-11-13 22:21] LABS: Bilirubin Urine Neg (NEGATIVE); Blood Urine Neg (Negative); Glucose Urine UA Norm (Normal); Ketones Urine Negative (Negative); Leukocyte Esterase Urine Negative (Negative); Nitrate Urine Negative (Negative); Protein Urine Neg (Negative); Urine Appearance Clear (CLEAR); Urine Color Yellow (Yellow); Urobilinogen Urine Norm (Negative); pH Urine 5 (5-7)
[2019-11-13 22:34] LABS: Amphetamines Screen Urine Negative (Negative); Barbiturates Screen Urine Negative (Negative); Benzodiazepines Screen Urine Negative (Negative); Cocaine Screen Urine Negative (Negative); Opiate Screen Urine Negative (Negative); PCP Screen Urine Negative (Negative); THC Screen Urine Negative (Negative)
== END 2019-11-13 22:43 | disposition left against medical advice (07) ==
LOC: ER 19:39
PROVIDERS: Emergency Provider Emergency Medicine; PCP Family Medicine
DX: F10.129 Alcohol abuse with intoxication, unspecified (principal); Y90.8 Blood alcohol level of 240 mg/100 ml or more; Z53.21 Procedure and treatment not carried out due to patient leaving prior to being seen by health care provider
CPT/HCPCS: 12345; 71045; 80053; 80306; 80307; 81003; 82140; 85025; 85610; 93005; 96360; 99284; J7030

== ENCOUNTER 2020-04-05 00:08 | Emergency (ER) | payer SELFPAY ==
[2020-04-05 00:17] VITALS: BP 147/63; PULSE 108; RESP 22; TEMP 37; O2SAT 94; BMI 20.7
[2020-04-05 00:34] VITALS: BP 152/101; PULSE 104; RESP 18; O2SAT 97
--- NOTE | 2020-04-05 00:43 | XR_ITS ---
WS: [id number] Right forearm, AP and lateral views, 04/05/2020 Clinical Data: fx follow up, arm pain Comparison: None. Findings: There is a healing fracture of the junction of the middle and distal thirds of the right ulna. No oth er fractures are seen. The right radius is intact. XR/XR forearm RT 2V [id number] Impression: Healing fracture of the distal third of the right ulna.
--- NOTE | 2020-04-05 00:45 | USCV_ITS ---
Israel Gordon Age: 44 Gender: M : 1975 Exam Date: 04/05/2020 02:25 Ordering Phys: Julianna Melendez Technologist: Zachary Mendez Exam Location: [facility] [place]_ Indication: RT ARM PAIN AND SWELLING HISTORY: Upper extremity swelling. PROCEDURES: Venous duplex imaging was performed in only the right upper extremity. The following venous structures were evaluated: internal jugular vein, subclavian vein, axillary vein, and brachial veins. In addition, the basilic vein, cephalic vein, radial vein, and ulnar vein. Serial compression, augmentation maneuvers, and spectral Doppler flow evaluation were performed. FINDINGS: No evidence of deep vein thrombosis or superficial thrombophlebitis in the right upper extremity. The veins were found to be easily compressible with spontaneous blood flow. Non pulsatile flow pattern. CONCLUSIONS No evidence of DVT in the above-mentioned identifiable veins. No evidence of any superficial vein thrombosis Dr Jesus Tellez MD [facility] (Electronically Signed) Final Date: 05 April 2020 19:57 S
--- NOTE | 2020-04-05 01:27 | W.ED.EXTPRO ---
HPI - Extremity Problem General: Chief complaint: Extremity Injury, Upper Stated complaint: Right arm pain/numbness/tingling Time Seen by Provider: 04/05/20 00:38 History of Present Illness: HPI Narrative: 44-year-old male patient presents to the emergency department with complaints of right forearm pain. He reports recent, drinking binge with recent incarceration on 03/31/2020 - 04/01/2020. Reports abrasion to the right dorsal hand where handcuffs were applied. Reports forearm fracture approximately 6 to 8 weeks prior. He reports right forearm swelling and pain since the handcuffs were applied with recent hospital admission at another facility due to ETOH intoxication -he reports last drink was 04/01/2020. Reports drinking half a gallon of whiskey during drinking binge. He does not appear intoxicated upon exam, negative odor of alcohol appreciated. MD Complaint: extremity pain (rt FA) and extremity swelling (rt FA) Onset (ago): day(s) (2-3 ) Pain Consistency: intermittent Location: right and upper extremity Severity scale (1-10): 4 Quality: aching Radiation: none Relieving factors: immobilization Exacerbating factors: range of motion Associated symptoms: Reports no associated symptoms; Deny chest pain, fever(s) or rash Review of Systems General: Reports: 10 or more systems reviewed and unremarkable except in HPI and below Const: Denies: fever(s), chills or diaphoresis Eyes: Denies: blurry vision or eye redness ENMT: Denies: throat pain, dental pain or disequilibrium Card: Denies: chest pain, palpitations or irregular heart rhythm Resp: Denies: dyspnea, productive cough, non-productive cough or wheezing GI: Denies: abdominal pain, nausea or vomiting : Denies: dysuria Musc: Reports: extremity pain (rt FA) and extremity swelling (rt FA); Denies: neck pain or back pain Skin/Breast: Denies: rash or pruritus Neuro: Denies: headache(s), weakness in extremities or behavioral changes Psych: Denies: anxiety or depression Byron/Lymph: Denies: easy bruising PFS ED PFSH: Medical History (Updated 04/05/20 @ 02:31 by ALIYA Ahuja) Adjustment disorder with mixed disturbance of emotions and conduct Alcohol use disorder -Has known history of alcohol abuse&DT Bipolar 1 disorder, manic, mild Depressive disorder, not elsewhere classified Methamphetamine abuse -UDS positive for amphetamines/THC Surgical History H/O hernia repair History of appendectomy Family History Other Alcoholism /alcohol abuse Social History Smoking and tobacco status: unknown if ever smoked Alcohol intake: current Current gender identity: Male Physical Exam Const: COMMON NORMALS: no acute distress, patient oriented x3, healthy appearing and alert GENERAL APPEARANCE: cooperative, comfortable and well hydrated HENMT: COMMON NORMALS: normocephalic, Normal external nose present and moist oral mucous membranes HEAD & SCALP: normocephalic NOSE: Normal external nose present Eye: COMMON NORMALS: Equal, round and reactive pupils present and EOMs intact bilaterally GENERAL EYE: appearance normal, both eyes and all related structures PUPIL: Yes Equal, round and reactive pupils present Neck/C-Spine: COMMON NORMALS: full ROM and no lymphadenopathy GENERAL: Yes normal visual inspection and Yes trachea midline CERVICAL SPINE: Yes cervical ROM normal Lymph: LYMPHATIC: no lymphadenopathy noted Chest: COMMONS NORMALS: normal inspection of the chest Resp: COMMON NORMALS: normal respiratory effort and clear to auscultation bilaterally AUSCULTATION: clear to auscultation bilaterally Cardio: COMMON NORMALS: regular rhythm, S1 normal heart sound present and S2 normal heart sound present RHYTHM: regular rhythm HEART SOUNDS: S1 normal heart sound present and S2 normal heart sound present GI: COMMON NORMALS: Soft to palpation and non-tender INSPECTION: Yes normal to inspection PALPATION: Yes Soft to palpation : COMMON NORMALS: Yes no CVA tenderness BLADDER/KIDNEY EXAM: Yes no CVA tenderness Back/Pelvis: COMMON NORMALS: no CVA tenderness and thoracic and lumbar spine normal to inspection Extremity: COMMON NORMALS: normal to inspection, full ROM and capillary refill normal RIGHT UPPER EXTREMITY: Yes lower arm Right lower arm: Yes inspection (swelling/edema to the mid FA, ulnar), Yes palpation (erythema to the mid FA, ? Venous puncture with questionable thrombophlebitis) and Yes neurovascular exam (Distally intact) and Yes wrist Right wrist: Yes inspection (normal), Yes palpation (pain to the proximal radius, full supination/pronation) and Yes neurovascular exam (distally intact) Neuro: COMMON NORMALS: patient oriented x3 and no focal motor deficits SENSORIUM/ORIENTATION: Yes alert Psych: COMMON NORMALS: mental status grossly normal, Normal thought process present and cooperative ACTIVITY/MOTOR BEHAVIOR: Yes appropriate eye contact THOUGHT PROCESS: Normal thought process present Skin: COMMON NORMALS: no rashes or lesions noted and turgor normal GENERAL SKIN EXAM: no rashes or lesions noted and turgor normal Course Vital Signs: Vital signs: Vital Signs Temperature 98.6 F 04/05/20 00:17 Pulse Rate 104 H 04/05/20 00:34 Respiratory Rate 18 04/05/20 00:34 Blood Pressure 152/101 04/05/20 00:34 Pulse Oximetry 97 04/05/20 00:34 MDM - Extremity (Nontraumatic) Imaging Data^: Xray Ortho: My impression: mid ulnar shaft fracture, healing noted, radiology inturp pending US: My impression: RUE venous duplex study, no DVT appreciated Discharge Plan Discharge Patient Disposition: Home Clinical Impression: Abrasion Abrasion hand Qualifiers: Encounter type: initial encounter Laterality: right Qualified Code(s): S60.511A - Abrasion of right hand, initial encounter Condition: Stable Prescriptions: New Keflex 500 mg capsule 500 mg PO Q6H 7 Days Qty: 28 RF: 0 No Action Thera 400 mcg Tablet 1 tab PO DAILY Qty: 30 RF: 0 trazodone 100 mg Tablet 100 mg PO BEDTIME 30 Days Qty: 30 RF: 1 propranolol 20 mg Tablet 20 mg PO TID PRN (Reason: Anxiety) 30 Days Qty: 30 RF: 1 fluoxetine 20 mg Capsule 20 mg PO DAILY 30 Days Qty: 30 RF: 1 Discharge Orders: Discharge Order (Routine); Ordered 04/05/20 Ordered By: Julianna Melendez Referrals: Isabel Urbina MD [Primary Care Provider] - Discharge Diet: Usual diet Discharge Activity: Limit activity as instructed Patient Instructions: Alcoholism, Arm Fracture in Adults (ED), Splint Care (ED), Abrasion (ED) Activity Restrictions/Additional Instructions: Keep the right forearm elevated, this will help with swelling, may apply cool compresses to the affected area May take Tylenol as needed for pain Avoid reinjury Follow-up with orthopedic specialty, social service will be contacting you with an appointment time and date If you develop shortness of breath, increased arm pain or other concerning symptoms, return to the emergency department Coding Level of Care Code ED Clinical Operations Consultant for Chg Fwd Exam Comprehensive
[2020-04-05 02:44] VITALS: BP 129/97; PULSE 87; RESP 17; O2SAT 98
[2020-04-05] MEDS: cephALEXin 500 mg Capsule PO (02:48)
--- NOTE | 2020-04-05 08:17 | DCPLANNER ---
Addendum entered by Hilda Blancas 04/06/20 09:36: Pat from ortho called therapeutic case manager stating that clinic tried to contact patient, called numbers in chart and was unable to reach patient to schedule follow up appointment. Original Note: quality assurance practice manager had message to schedule a follow up appointment for patient with ortho. quality assurance practice manager called the ortho clinic, spoke with Pat, gave clinic patients information. quality assurance practice manager was told that patients information would be printed and reviewed. Clinic will call patient with appointment information.
== END 2020-04-05 02:51 | disposition home or self-care (01) ==
PROVIDERS: Emergency Provider Nurse Practitioner Family; PCP Family Medicine
DX: S60.511A Abrasion of right hand, initial encounter (principal); Y35.893A Legal intervention involving other specified means, suspect injured, initial encounter
CPT/HCPCS: 12345; 29125; 73090; 93971; 99281; 99283

== ENCOUNTER 2020-07-17 23:45 | Inpatient (IN) | payer SELFPAY ==
[2020-07-17 23:47] VITALS: BP 161/105; PULSE 106; RESP 20; TEMP 37.4; O2SAT 99; BMI 21.5
[2020-07-18] VITALS (7 sets, daily range): BP systolic 86–124; BP diastolic 60–78; PULSE 70–103; RESP 15–20; TEMP 36.6–37; O2SAT 96–99
[2020-07-18 00:40] LABS: Acetaminophen < 5.0 ug/mL (10-30); Alanine Aminotransferase 28 U/L (0-41); Albumin Level 4.5 g/dL (3.5-5.2); Alcohol Level < 10 mg/dL (0-10); Alkaline Phosphatase 109 IU/L (40-130); Anion Gap 14.4 (5-19); Aspartate Amino Transferase 28 U/L (0-40); Blood Urea Nitrogen 11 mg/dL (6-20); Calcium 9.2 mg/dL (8.5-10.5); Carbon Dioxide 28 mmol/L (22-29); Chloride 98 mmol/L (98-107); Globulin 3.8 g/dL (1.3-4.6); Glucose 80 mg/dL (65-115); Osmolality Calculated 282 mOsm/kg (285-295); Potassium 3.4 mmol/L (3.5-5.1); Salicylate < 0.3 mg/dL (3-10); Sodium 137 mmol/L (136-145); Total Bilirubin 0.7 mg/dL (0.15-1.2); Total Protein 8.3 g/dL (6.6-8.7)
[2020-07-18 00:42] LABS: Basophils % 0.4 %; Eosinophils # 0.1 10^3/uL (0.0-0.8); Eosinophils % 0.8 %; Hematocrit 48.5 % (42.0-52.0); Hemoglobin 15.9 g/dL (11.7-16.6); Lymphocytes % 23.9 %; Mean Corpuscular HGB Conc 32.8 g/dL (30.0-36.0); Mean Corpuscular Hemoglobin 34.3 pg (28.0-34.0); Mean Corpuscular Volume 104.8 fL (80-94); Mean Platelet Volume 11.6 fL (7.4-10.4); Monocytes # 0.7 10^3/uL (0.2-0.9); Monocytes % 8.2 %; Neutrophils # 5.61 10^3/uL (1.8-7.7); Neutrophils % 66.5 %; Nucleated Red Blood Cells % 0 %; Platelet Count 212 10^3/cmm (130-400); Red Blood Count 4.63 10^6/uL (4.1-5.3); Red Cell Distribution Width 13.7 % (12.1-15.1); Slide Review Slide Review Perform; White Blood Count 8.4 10^3/uL (4.0-10.0)
--- NOTE | 2020-07-18 00:49 | W.ED.PSYCH ---
HPI - Psych General: Chief Complaint: Psychiatric Symptoms Stated Complaint: SEEING THINGS Time Seen by Provider: 07/18/20 00:27 History of Present Illness: HPI Narrative: Patient is a 44-year-old male who comes to the ED via EMS with visual hallucinations. Patient has a past medical history of bipolar 1 disorder, alcohol and methamphetamine abuse. He was picked up by Sophie GERARD who then sent him here to the ED via [facility]. Patient is complaining of having visual hallucinations of people with mass that are not there that are trying to hurt him. Denies any SI or HI. Patient has a history of alcohol abuse and methamphetamine abuse. He states that he has not had any alcohol today which is unusual for him. He states he usually drinks about a pint of whiskey a day. He has a history of alcohol withdrawal where he had seizures and DT. Patient endorses feeling anxious currently and has some upper extremity shaking. Denies any diaphoresis. Patient admits to using methamphetamine today. Patient states he wants to get help. Denies any nausea or vomiting. Associated symptoms: Reports visual hallucinations (Sees other people wearing masks that are trying to hurt him.); Deny homicidal ideation or suicidal ideation Review of Systems Const: Denies: fever(s), chills or fatigue Eyes: Denies: change in vision or eye discomfort ENMT: Denies: throat pain, odynophagia, nasal discharge or nasal congestion Card: Denies: chest pain, palpitations, edema, swelling of feet/ankles, dyspnea on exertion or orthopnea Resp: Denies: dyspnea, productive cough or non-productive cough GI: Denies: abdominal pain, nausea, vomiting, diarrhea, constipation or hematochezia : Denies: flank pain, difficulty urinating, dysuria or hematuria Musc: Denies: neck pain, back pain or extremity swelling Skin/Breast: Denies: rash or new lesions Neuro: Reports: involuntary movements (upper extremity shaking); Denies: headache(s), numbness in extremities or weakness in extremities Psych: Reports: anxiety and visual hallucinations (Sees other people wearing masks that are trying to hurt him.); Denies: suicidal ideation or homicidal ideation [facility] ED PFSH: Medical History Adjustment disorder with mixed disturbance of emotions and conduct Alcohol use disorder -Has known history of alcohol abuse&DT Bipolar 1 disorder, manic, mild Depressive disorder, not elsewhere classified Methamphetamine abuse -UDS positive for amphetamines/THC Surgical History H/O hernia repair History of appendectomy Family History Other Alcoholism /alcohol abuse Social History Smoking and tobacco status: unknown if ever smoked Alcohol intake: current Current gender identity: Male Physical Exam Const: COMMON NORMALS: patient oriented x3 and alert GENERAL APPEARANCE: cooperative, comfortable and anxious HENMT: COMMON NORMALS: normocephalic HEAD & SCALP: normocephalic MOUTH: Normal oral and palatal mucosa present THROAT: posterior oropharynx normal and uvula midline Neck/C-Spine: COMMON NORMALS: supple GENERAL: Yes normal visual inspection Resp: COMMON NORMALS: normal respiratory effort, No retractions, No use of accessory muscles and clear to auscultation bilaterally AUSCULTATION: clear to auscultation bilaterally Cardio: COMMON NORMALS: regular rate, regular rhythm, S1 normal heart sound present, S2 normal heart sound present, No gallops present (Cardio), No clicks present (Cardio), No murmurs present (Cardio) and Peripheral pulses 2+ throughout RATE: regular rate RHYTHM: regular rhythm HEART SOUNDS: S1 normal heart sound present and S2 normal heart sound present PERIPHERAL PULSES: Peripheral pulses 2+ throughout GI: COMMON NORMALS: Normal to inspection, nondistended, normoactive bowel sounds present, Soft to palpation, non-tender and no masses PALPATION: Yes Soft to palpation : COMMON NORMALS: Yes no CVA tenderness BLADDER/KIDNEY EXAM: Yes no CVA tenderness Back/Pelvis: COMMON NORMALS: no CVA tenderness Extremity: COMMON NORMALS: normal to inspection and no pedal edema Neuro: COMMON NORMALS: patient oriented x3 and moves all extremities SENSORIUM/ORIENTATION: Yes alert Psych: ATTITUDE: Yes engaged ACTIVITY/MOTOR BEHAVIOR: Yes fidgeting SPEECH: Yes rapid and Yes soft MOOD & AFFECT: Yes anxious THOUGHT CONTENT: No Suicidality present, No Homicidality present and Yes Hallucination(s) present visual (Patient says he seen people wearing masks and are trying to hurt him.) ATTENTION/CONCENTRATION: Yes attention grossly intact and Yes concentration grossly intact MEMORY/COGNITION: Yes memory grossly intact and Yes cognition grossly intact INSIGHT: Limited insight present (Psych) JUDGEMENT: Limited judgement present (Psych) Skin: GENERAL SKIN EXAM: dry skin MDM - Psych MDM Narrative: Medical decision making narrative: Patient is a 44-year-old male who comes to the ED with visual hallucinations. Patient has a history of alcohol and methamphetamine abuse along with bipolar disorder. He explains his visual hallucinations of seeing people and mass are trying to hurt him. Denies any thoughts of SI or HI. Patient says he drinks half pint of whiskey a day and today he has not had any alcohol. He used methamphetamines today. Patient having some alcohol withdrawal symptoms so he was given an IV banana bag and 2 mg of Ativan. All screening psych labs performed and patient's blood alcohol level was normal. I contacted Dr. Em and told outpatient case and he accepted admission into NPU. Dr. Berry placed the admitting orders into the NPU. Lab Data: Attestation: I reviewed the patient's lab results. Labs: Lab Results 07/18/20 07/18/20 Range/Units 00:00 00:00 WBC 8.4 (4.0-10.0) 10^3/ uL RBC 4.63 (4.1-5.3) 10^6/u L Hgb 15.9 (11.7-16.6) g/dL Hct 48.5 (42.0-52.0) % MCV 104.8 H (80-94) fL MCH 34.3 H (28.0-34.0) pg MCHC 32.8 (30.0-36.0) g/dL RDW 13.7 (12.1-15.1) % Plt Count 212 (130-400) 10^3/c mm MPV 11.6 H (7.4-10.4) fL Neut % (Auto) 66.5 % Lymph % (Auto) 23.9 % Limestone % (Auto) 8.2 % Eos % (Auto) 0.8 % Baso % (Auto) 0.4 % Neut # (Auto) 5.61 (1.8-7.7) 10^3/u L Lymph # (Auto) 2.0 (0.8-4.8) 10^3/u L Limestone # (Auto) 0.7 (0.2-0.9) 10^3/u L Eos # (Auto) 0.1 (0.0-0.8) 10^3/u L Baso # (Auto) 0.0 (0.0-0.1) 10^3/u L Nucleated RBC % (a uto) 0 % Nucleated RBCs # 0.0 /100WBC Sodium 137 (136-145) mmol/L Potassium 3.4 L (3.5-5.1) mmol/L Chloride 98 (98-107) mmol/L Carbon Dioxide 28 (22-29) mmol/L Anion Gap 14.4 (5-19) BUN 11 (6-20) mg/dL Creatinine 0.6 L (0.7-1.2) mg/dL GFR Calculation 147.0 H (90-130) mL/min Glucose 80 (65-115) mg/dL Calculated Osmolal ity 282 L (285-295) mOsm/k g Calcium 9.2 (8.5-10.5) mg/dL Total Bilirubin 0.7 (0.15-1.2) mg/dL AST 28 (0-40) U/L ALT 28 (0-41) U/L Alkaline Phosphata se 109 (40-130) IU/L Total Protein 8.3 (6.6-8.7) g/dL Albumin 4.5 (3.5-5.2) g/dL Globulin 3.8 (1.3-4.6) g/dL Salicylates < 0.3 L (3-10) mg/dL Acetaminophen < 5.0 L (10-30) ug/mL Ethyl Alcohol < 10 (0-10) mg/dL Discharge Plan Discharge Admit Provider: Shola Em Coding Level of Care Code ED Bow [employer] Gift Wrapping for g Fwd Exam Comprehensive
[2020-07-18] MEDS: LORazepam 2 mg/mL INJ 1 mL IVP (00:57)
[2020-07-18] MEDS: folic acid 1 MG, multivitamin inj 10 ML, thiamine 100 MG in sodium chloride 0.9% 1,000 ML 252.8 MG IV (01:14)
--- NOTE | 2020-07-18 03:13 | PC.NURSE ---
Skin assessment revealed no wounds or injuries.
[2020-07-18] MEDS: thiamine 100 mg Tablet PO (08:59)
[2020-07-18 11:43] LABS: Alcohol Level < 10 mg/dL (0-10)
[2020-07-18] MEDS: nicotine 2 mg Gum BUCCAL (12:41)
[2020-07-18 15:25] LABS: Bilirubin Urine 1+ (Negative); Blood Urine Neg (Negative); Glucose Urine UA Norm (Normal); Ketones Urine 1+ (Negative); Leukocyte Esterase Urine Negative (Negative); Nitrate Urine Negative (Negative); Protein Urine Neg (Negative); Specific Gravity, Urine 1.025 (1.005-1.030); Urine Appearance Clear (CLEAR); Urine Color Dark Yellow (Yellow); Urobilinogen Urine 1 mg/dL (Negative); pH Urine 6 (5-7)
[2020-07-18 15:31] LABS: Add Urine Culture? No; Bacteria Urine TRACE /hpf; Mucus Urine 2+ /hpf; WBC Urine 0-4 /hpf (0-5)
[2020-07-18 15:38] LABS: Amphetamines Screen Urine Positive (Negative); Barbiturates Screen Urine Negative (Negative); Benzodiazepines Screen Urine Positive (Negative); Cocaine Screen Urine Negative (Negative); Opiate Screen Urine Negative (Negative); PCP Screen Urine Negative (Negative); THC Screen Urine Positive (Negative)
--- NOTE | 2020-07-18 16:23 | P.HP_ITS ---
Providers/Chief Complaint Admitting Physician: Agatha Yao DO Primary Care Provider: Isabel Urbina MD Chief Complaint: SEEING THINGS HPI NPU History of Present Illness Israel Gordon is a 44 year old male with history of present after being picked up by police for visual hallucinations. Patient states he has no recollection of vents leading to his hospitalization. At the time of his emergency department evaluation he did not have any alcohol in the system but was subsequently found to have benzodiazepines, methamphetamine, THC in his urine drug screen. Patient continues to report auditory and visual hallucinations. Reports multiple stressors to include not having any heat or running water in his current living structure which is an artery that he lives on on his property. Reports ongoing legal stressors to include his being picked up on warrants and has ongoing delusion that people are out to get him. He currently denies any suicidal ideation or thoughts of self-harm, reports some depressive symptoms related to ongoing stressors. Psychiatric review of systems otherwise negative. Patient reports not being compliant with his medication for follow-up. Patient states that his friends help support him and that he does not have any family support. Review of Systems General: Reports: 10 or more systems reviewed and unremarkable except in HPI and below Meds NPU Home Medications Medication Instructions Recorded Confirmed Last Taken Type fluoxetine 20 mg PO DAILY 30 Days #30 cap 07/31/19 09/25/19 08/30/19 Rx propranolol 20 mg PO TID PRN 30 Days #30 tab 07/31/19 09/25/19 Unknown Rx trazodone 100 mg PO BEDTIME 30 Days #30 tab 07/31/19 09/25/19 08/30/19 Rx multivitamin with folic acid 1 tab PO DAILY #30 tab 09/02/19 09/25/19 Unknown Rx [Thera] lithium carbonate mg 07/17/20 Unknown History Allergies Allergy/AdvReac Type Severity Reaction Status Date / Time No Known Allergies Allergy Verified 07/17/20 23:54 PFSH NPU PFSH: Medical History Adjustment disorder with mixed disturbance of emotions and conduct Alcohol use disorder -Has known history of alcohol abuse&DT Bipolar 1 disorder, manic, mild Depressive disorder, not elsewhere classified Methamphetamine abuse -UDS positive for amphetamines/THC Surgical History H/O hernia repair History of appendectomy Family History Other Alcoholism /alcohol abuse Social History Smoking and tobacco status: unknown if ever smoked Alcohol intake: current Current gender identity: Male Other Psychiatric History: Other Psychiatric History: Per HPI, patient is poor historian at this time Mental Status Exam MSE Comments: Appears older than stated age, bearded, vanessa complexion, calm, cooperative, wrapped in a blanket, poor eye contact Psychomotor activity is decreased Speech, sparse, low volume, not pressured I feel horrible, congruent affect, not labile Alert and oriented to person, place, time Intellectual functioning appears to be average at best based on vocabulary, interview Memory concentration are fair per interview Thought process, linear, no flight of ideas, no looseness of associations Thought content, paranoid delusions, does not appear to be attending to any internal stimuli, no suicidal or homicidal ideation Insight and judgment appear to be fair at best Vitals/I&O/Wt Last Vital Signs Temp 98.6 F 07/18/20 14:00 Pulse 103 H 07/18/20 14:00 Resp 20 H 07/18/20 14:00 BP 124/78 07/18/20 14:00 Pulse Ox 96 07/18/20 14:00 Weight last 48 hrs Weight 68.039 kg Data NPU : 07/18/20 00:00 07/18/20 00:00 A&P Assessment and plan (1) Psychotic disorder: Status: Acute (2) Alcohol use disorder: Status: Acute (3) Methamphetamine abuse: Status: Acute Additional A&P Information Patient presents with altered mental status, recent use of methamphetamine and marijuana and benzodiazepines in the context of multiple stressors reporting perceptual disturbances to include auditory and visual hallucinations. Patient has been off of medication and not compliant with medication and medication management follow-up. VOLUNTARY ADMIT to inpatient psychiatry START olanzapine 5 mg by mouth twice daily targeting psychotic symptoms START CIWA protocol Encourage patient participate in unit activities, unit milieu Coordinate with social work program coordinator for post discharge treatment to include medication management follow-up and substance counseling Involuntary Hold Information 96 Hour Hold: 96 Hour Involuntary Admission: No 96 Hour Hold Ending Date: 10/05/19 96 Hour Hold Ending Time: 23:03 Attestations NPU 2 Medical Necessity Statement*: Require psychiatric hospitalization for medication stabilization and observation as well as ensuring safe discharge Time Spent in Patient Care: Greater than 35 minutes (>than 50% of time spent in counselling and/or direct pt care on unit) . Coding Level of Care Code Acute Hardware Designer for Camila Alvares Diagnoses Psychotic disorder F29 Alcohol use disorder Methamphetamine abuse F15.10
[2020-07-18] MEDS: OLANZapine 5 mg TABLET PO (16:49)
--- NOTE | 2020-07-18 19:00 | PC.NURSE ---
Phone found in patients room: Upon moving patient to another room patients phone was found in patients pocket of patients scrubs. Patient willingly gave phone to charge nurse and it was recorded on patients belonging list and placed in safe. Witnessed by Gillian Iverson CNA. FRENCH GALINDO
[2020-07-18] MEDS: trazodone 50 mg Tablet PO (20:32)
[2020-07-18] MEDS: OLANZapine 5 mg ODT PO (20:32)
[2020-07-18] MEDS: hyDROXYzine 25 mg Capsule 50 MG PO (20:32)
[2020-07-19 06:00] VITALS: BP 99/66; PULSE 99; RESP 17; TEMP 36.9; O2SAT 97
[2020-07-19] MEDS: thiamine 100 mg Tablet PO (08:37)
[2020-07-19] MEDS: OLANZapine 5 mg TABLET PO ×2 (08:37→20:50)
[2020-07-19] MEDS: nicotine 21 mg Patch 1 PATCH TRANSDERMA (11:47)
--- NOTE | 2020-07-19 12:57 | PM.NPN ---
Subjective NPU Subjective: Interval history: Reports feeling somewhat better today, slept well overnight, improving appetite. Denies any interval auditory or visual hallucinations, no delusions. Reports improving mood, denies any interval suicidal ideation. Reports being compliant with medication and denies any medication side effects. No reported interval behavioral disturbances Mental Status Exam MSE Comments: Lying in bed, disheveled, unkempt fair eye contact Psychomotor activity is decreased Speech, slow rate, low volume, not pressured I feel a little better, congruent affect, not labile Alert and oriented to person, place, time Memory concentration are fair per interview Thought process, linear, no flight of ideas, no looseness of associations Thought content, no delusions, no hallucinations, no suicidal or homicidal ideation Insight and judgment appear to be fair at best Vitals/I&O/Wt Last Vital Signs Temp 98.4 F 07/19/20 06:00 Pulse 99 07/19/20 06:00 Resp 17 07/19/20 06:00 BP 99/66 07/19/20 06:00 Pulse Ox 97 07/19/20 06:00 Weight last 48 hrs Weight 68.039 kg Data NPU : 07/18/20 00:00 07/18/20 00:00 A&P Assessment and plan (1) Psychotic disorder: Status: Acute (2) Alcohol use disorder: Status: Acute (3) Methamphetamine abuse: Status: Acute Additional A&P Information Significantly improved psychotic symptoms, improved mood, tolerating medication CONTINUE current medication, continue to monitor Involuntary Hold Information 96 Hour Hold: 96 Hour Involuntary Admission: No 96 Hour Hold Ending Date: 10/05/19 96 Hour Hold Ending Time: 23:03 Attestations NPU Medical Necessity Statement*: Continues to require psychiatric hospitalization for medication stabilization, coordination for safe discharge Coding Level of Care Code Acute It Administrator for Camila Fwd Diagnoses Psychotic disorder F29 Alcohol use disorder Methamphetamine abuse F15.10
[2020-07-19 13:49] VITALS: BP 98/63; PULSE 87; RESP 16; TEMP 36.9; O2SAT 96
[2020-07-19 20:34] VITALS: BP 124/79; PULSE 90; RESP 19; TEMP 37.6; O2SAT 100
[2020-07-19] MEDS: hyDROXYzine 25 mg Capsule 50 MG PO (20:50)
[2020-07-19] MEDS: trazodone 50 mg Tablet PO (20:50)
--- NOTE | 2020-07-19 23:06 | PC.NURSE ---
PM ASSESSMENT PT DENIES SI/HI, PT CONFIRMS VH, SEEING SHADOWS, PT DENIES AH. pT DENIES PAIN. MED NURSE NOTIFIED.
[2020-07-20 06:00] VITALS: BP 104/70; PULSE 88; RESP 16; TEMP 36.5; O2SAT 97
[2020-07-20] MEDS: acetaminophen 325 mg Tablet 650 MG PO (08:17)
[2020-07-20] MEDS: benztropine 1 mg Tablet PO (08:17)
[2020-07-20] MEDS: thiamine 100 mg Tablet PO (08:17)
[2020-07-20] MEDS: OLANZapine 5 mg TABLET PO (08:50)
--- NOTE | 2020-07-20 09:50 | PM.NDC ---
Diagnoses at Discharge Discharge Diagnosis (1) Psychotic disorder: Status: Acute (2) Alcohol use disorder: Status: Acute Permanent problem details: -Has known history of alcohol abuse&DT (3) Methamphetamine abuse: Status: Acute Permanent problem details: -UDS positive for amphetamines/THC Reason for Visit Reason for Visit: SEEING THINGS Hospital Course Hospital Course 44-year-old male with well-known history of polysubstance abuse, alcohol dependence presented to the emergency department intoxicated, reported visual hallucinations and subsequently found to be positive for methamphetamine and THC in his urine on urine drug screen although his blood alcohol level was negative at the time of initial evaluation. Patient stated he did not recall the events leading to his hospitalization but does report wandering around because he did not have heat or running water in his camper. Patient states that he has not been compliant with his medication medication management follow-up. Patient was started on olanzapine which was titrated up and tolerated well with no reports of any medication side effects. Given patient's lack of compliance lithium and propranolol were discontinued and not restarted in the inpatient setting. Patient reported significant improvement with no withdrawal symptoms throughout his hospital stay and denied any suicidal ideation or thoughts about self-harm and was no longer reporting any perceptual disturbances. Patient mostly staying in bed and resting but otherwise participating in unit milieu with no reports of any behavioral disturbances. He was not suicidal at the time of discharge and did not appear to pose an imminent threat of harm to self or others. Low to moderate risk of harm to self given no current suicidal ideation and no report of any psychiatric symptoms although patient's risk may be elevated if he continues to abuse substances and alcohol and is noncompliant with his medication medication management follow-up leading to unexpected, impulsive behavior. Risk mitigation included psychiatric hospitalization for observation for return of any suicidal ideation or persistence and perceptual disturbances; medication stabilization; as well as recommendation to abstain from use of substances and alcohol and coordination for safe discharge. Patient was able to communicate his understanding of the need to abstain from use of substances and alcohol as well as the need for compliance with his medication medication management follow-up as well as substance counseling in order to further mitigate his risk of harm to self and others. Involuntary Hold Information 96 Hour Hold: 96 Hour Involuntary Admission: No 96 Hour Hold Ending Date: 10/05/19 96 Hour Hold Ending Time: 23:03 Mental Status Exam MSE Comments: Lying in bed, tired appearing, calm, cooperative, good eye contact Psychomotor activity is neither increased nor decreased, no agitation Speech, normal rate, normal volume, spontaneous, clear articulation, not pressured I feel pretty good, congruent affect, not labile Alert and oriented to person, place, time Memory concentration are fair to intact per interview Thought process, linear, no flight of ideas, no looseness of associations Thought content, no delusions, no hallucinations, no suicidal or homicidal ideation Insight and judgment appear to be fair at best Discharge Data Vitals: Last Vital Signs Temp 97.7 F 07/20/20 06:00 Pulse 88 07/20/20 06:00 Resp 16 07/20/20 06:00 BP 104/70 07/20/20 06:00 Pulse Ox 97 07/20/20 06:00 Discharge Plan Discharge Patient Disposition: Home Condition: Stable Prescriptions: New olanzapine 5 mg Tablet 5 mg PO 0900,2100 Qty: 60 RF: 0 thiamine mononitrate (vit B1) [Vitamin B-1 (mononitrate)] 100 mg Tablet 100 mg PO DAILY Qty: 30 RF: 0 Continued multivitamin with folic acid [Thera] 400 mcg Tablet 1 tab PO DAILY Qty: 30 RF: 0 fluoxetine 20 mg Capsule 20 mg PO DAILY 30 Days Qty: 30 RF: 1 Discontinued trazodone 100 mg Tablet 100 mg PO BEDTIME 30 Days Qty: 30 RF: 1 propranolol 20 mg Tablet 20 mg PO TID PRN (Reason: Anxiety) 30 Days Qty: 30 RF: 1 lithium carbonate 300 mg capsule RF: 0 Discharge Orders: Discharge Order (Routine); Ordered 07/20/20 Ordered By: Agatha Yao Referrals: [facility] [Other] (Saturday ? Saturday 7AM-7PM Saturday and Saturday 8AM-4PM Option for outpatient mental health ) [facility] [Other] (Please Bring photo ID. ) [facility] [Other] (Please have Photo ID with you when you come. Hours of Operation: Saturday: 9am ? 5pm Saturday: 9am ? noon and 1pm ? 5pm Saturday: 9am ? 5pm : 10am ? 5pm Saturday: 9am ? 5pm* *[facility] is closed the first Saturday of every month ) [facility] [Other] (Option for outpatient mental health) [facility] [Outside] (Follow up for assessment.) Discharge Diet: Usual diet and Regular Discharge Activity: Resume usual activity Activity Restrictions/Additional Instructions: [facility] said to go to [facility] at [address] [place] [address] in [place] before 3pm. They will then assign penitentiary and transport to the penitentiary at 7pm, Discharge Attestations NPU Time Spent in Discharge Care*: greater than 30 min Status at Discharge: Cognitive status at discharge: cognitively intact, Behavioral status at discharge: cooperative, Functional status at discharge: independent ambulation Overall status at discharge: patient is back to baseline Coding Level of Care Code Acute District Court Judge for Camila Alvares Diagnoses Psychotic disorder F29 Alcohol use disorder Methamphetamine abuse F15.10
[2020-07-20 10:09] VITALS: BP 104/70; PULSE 88; RESP 16; TEMP 36.5; O2SAT 97
== END 2020-07-20 13:39 | disposition home or self-care (01) | DRG 885 ==
LOC: ER 07-18 00:27 → NP 07-18 02:30
PROVIDERS: Admitting Provider Psychiatry & Neurology Psychiatry; Emergency Provider Physician Assistant; PCP Family Medicine; Visit Provider Psychiatry & Neurology Psychiatry
DX: F23 Brief psychotic disorder (principal); R45.851 Suicidal ideations; F10.229 Alcohol dependence with intoxication, unspecified; F15.229 Other stimulant dependence with intoxication, unspecified; F12.20 Cannabis dependence, uncomplicated
CPT/HCPCS: 36415; 80053; 80306; 80307; 81001; 85025; 96361; 96374; 99285; J2060; J3411; J3490; J7030

== ENCOUNTER 2020-09-27 14:27 | Inpatient (IN) | payer SELFPAY ==
[2020-09-27 14:30] VITALS: BMI 21.5
[2020-09-27] MEDS: ziprasidone 20 mg/mL SDV IM (14:30)
[2020-09-27] MEDS: LORazepam 2 mg/mL INJ 1 mL IM (14:30)
[2020-09-27] MEDS: diphenhydrAMINE 50 mg/mL SDV 1mL IM (14:45)
[2020-09-27 14:59] VITALS: PULSE 109; RESP 18; O2SAT 95
--- NOTE | 2020-09-27 15:04 | PC.NURSE ---
pt put on 2L NC at 1500, pt was snoring/gurgling shallowly checked O2 was at 58% on RA.
--- NOTE | 2020-09-27 15:06 | PC.NURSE ---
pt taken off restraints
[2020-09-27 15:08] LABS: Basophils % 0.4 %; Eosinophils % 0.5 %; Hematocrit 47.6 % (42.0-52.0); Hemoglobin 15.8 g/dL (11.7-16.6); Lymphocytes # 1.8 10^3/uL (0.8-4.8); Lymphocytes % 21.4 %; Mean Corpuscular HGB Conc 33.2 g/dL (30.0-36.0); Mean Corpuscular Hemoglobin 36.7 pg (28.0-34.0); Mean Corpuscular Volume 110.4 fL (80-94); Mean Platelet Volume 9.4 fL (7.4-10.4); Monocytes # 0.7 10^3/uL (0.2-0.9); Monocytes % 8.7 %; Neutrophils % 68.6 %; Nucleated Red Blood Cells % 0 %; Platelet Count 293 10^3/cmm (130-400); Red Blood Count 4.31 10^6/uL (4.1-5.3); Red Cell Distribution Width 12.7 % (12.1-15.1); White Blood Count 8.4 10^3/uL (4.0-10.0)
--- NOTE | 2020-09-27 15:17 | PC.NURSE ---
pt put back in restraints x 2 (legs). pt starting to wake and stir around. pt still on 2L NC 95%
[2020-09-27 15:29] LABS: Alanine Aminotransferase 22 U/L (0-41); Albumin Level 4.2 g/dL (3.5-5.2); Alkaline Phosphatase 119 IU/L (40-130); Aspartate Amino Transferase 30 U/L (0-40); Blood Urea Nitrogen 11 mg/dL (6-20); Calcium 8.2 mg/dL (8.5-10.5); Carbon Dioxide 25 mmol/L (22-29); Chloride 100 mmol/L (98-107); Globulin 3.4 g/dL (1.3-4.6); Glucose 68 mg/dL (65-115); Osmolality Calculated 286 mOsm/kg (285-295); Sodium 139 mmol/L (136-145); Total Bilirubin 0.3 mg/dL (0.15-1.2); Total Protein 7.6 g/dL (6.6-8.7)
[2020-09-27 15:32] LABS: Acetaminophen < 5.0 ug/mL (10-30); Salicylate < 0.3 mg/dL (3-10)
[2020-09-27 15:43] LABS: Alcohol Level 325 mg/dL (0-10)
[2020-09-27 15:44] LABS: Anion Gap 17.5 (5-19); Potassium 3.5 mmol/L (3.5-5.1)
[2020-09-27 16:02] LABS: Add Urine Microscopic? YES; Bilirubin Urine Neg (Negative); Blood Urine Neg (Negative); Glucose Urine UA Norm (Normal); Ketones Urine Negative (Negative); Leukocyte Esterase Urine Negative (Negative); Nitrate Urine Negative (Negative); Protein Urine Neg (Negative); Specific Gravity, Urine 1.005 (1.005-1.030); Urine Appearance Hazy (CLEAR); Urine Color Yellow (Yellow); Urobilinogen Urine Norm (Negative); pH Urine 5 (5-7)
[2020-09-27 16:09] LABS: Amphetamines Screen Urine Negative (Negative); Barbiturates Screen Urine Negative (Negative); Benzodiazepines Screen Urine Negative (Negative); Cocaine Screen Urine Negative (Negative); Opiate Screen Urine Negative (Negative); PCP Screen Urine Negative (Negative); THC Screen Urine Negative (Negative)
[2020-09-27 16:11] LABS: Add Urine Culture? No; Bacteria Urine TRACE /hpf; Mucus Urine TRACE /hpf; Squamous Epithelial Cell Urine 0-4 /hpf (0-5)
[2020-09-27 16:31] VITALS: PULSE 89; O2SAT 95
--- NOTE | 2020-09-27 16:31 | PC.NURSE ---
pt taken out of restraints, put in paper scrubs, 1 on 1 sitter at door
[2020-09-27 19:36] LABS: Alcohol Level 203 mg/dL (0-10)
[2020-09-27 20:25] VITALS: BP 104/76; PULSE 74; RESP 15; O2SAT 98
[2020-09-27 21:26] VITALS: BP 104/76; PULSE 74; RESP 15; O2SAT 98
[2020-09-27] MEDS: nicotine 2 mg Gum BUCCAL (21:30)
[2020-09-27 21:37] VITALS: BP 119/79; PULSE 88; RESP 18; TEMP 36.3; O2SAT 95
--- NOTE | 2020-09-27 21:41 | ED_ITS ---
HPI - Psych General: Chief Complaint: Psychiatric Symptoms Stated Complaint: PSYCH EVAL Time Seen by Provider: 09/27/20 14:33 Source: EMS Mode of arrival: EMS Limitations: altered mental status History of Present Illness: HPI Narrative: The patient is a 45-year-old male who was brought into the emergency department via EMS and states that the patient had complained of suicidal ideation and homicidal ideation. The patient is clearly intoxicated. On arrival to the emergency department the patient is very loud and belligerent, screaming some names and saying he is going to kill them, also says he does not care if he dies, stating that he will also kill himself. He was cussing at the staff and the EMS crew and was swinging his arms like he was about to punch someone. Because of the condition that he was in he was immediately physically and chemically restrained for his protection and protection of staff. The patient does not answer any question that i ask and is just shouting. History of same: Yes Context: recent alcohol abuse Associated psychiatric symptoms: suicidal ideation and homicidal ideation Associated symptoms: Reports homicidal ideation and suicidal ideation Treatments prior to arrival: none Review of Systems General: Reports: ROS unobtainable due to mental status Psych: Reports: suicidal ideation and homicidal ideation [facility] ED PFSH: Medical History (Reviewed 09/27/20 @ 21:45 by Timothy Gustafson MD, [facility] [place]) Adjustment disorder with mixed disturbance of emotions and conduct Alcohol use disorder -Has known history of alcohol abuse&DT Bipolar 1 disorder, manic, mild Depressive disorder, not elsewhere classified Methamphetamine abuse -UDS positive for amphetamines/THC Surgical History (Reviewed 09/27/20 @ 21:45 by Timothy Gustafson MD, [facility] [place]) H/O hernia repair History of appendectomy Family History (Reviewed 09/27/20 @ 21:45 by Timothy Gustafson MD, [facility] [place]) Other Alcoholism /alcohol abuse Social History (Reviewed 09/27/20 @ 21:45 by Timothy Gustafson MD, [facility] [place]) Smoking and tobacco status: unknown if ever smoked Alcohol intake: current Current gender identity: Male Physical Exam Const: COMMON NORMALS: no acute distress, average body habitus, no limitatio ns, healthy appearing, alert and well nourished HENMT: COMMON NORMALS: normocephalic, atraumatic and moist oral mucous membranes HEAD & SCALP: normocephalic and atraumatic Neck/C-Spine: COMMON NORMALS: no meningeal signs and no JVD Resp: COMMON NORMALS: normal respiratory effort, No retractions, No use of accessory muscles, clear to auscultation bilaterally and percussion normal AUSCULTATION: clear to auscultation bilaterally PERCUSSION: percussion normal Cardio: COMMON NORMALS: no JVD, regular rate, regular rhythm, S1 normal heart sound present, S2 normal heart sound present, No gallops present (Cardio), No clicks present (Cardio), No murmurs present (Cardio), No rub (Cardio) and Peripheral pulses 2+ throughout RATE: regular rate RHYTHM: regular rhythm HEART SOUNDS: S1 normal heart sound present and S2 normal heart sound present PERIPHERAL PULSES: Peripheral pulses 2+ throughout GI: COMMON NORMALS: Normal to inspection, nondistended, normoactive bowel sounds present, Soft to palpation, non-tender, No hepatosplenomegaly present, no masses and no bruits PALPATION: Yes Soft to palpation and Yes No hepatosplenomegaly present Extremity: COMMON NORMALS: normal to inspection, full ROM, capillary refill normal, no calf tenderness and no pedal edema Neuro: SENSORIUM/ORIENTATION: Yes alert and Yes Orientation impaired MENINGEAL SIGNS: Yes no meningeal signs Skin: COMMON NORMALS: no rashes or lesions noted, no wounds, turgor normal, no jaundice, no petechiae and no mottling GENERAL SKIN EXAM: no rashes or lesions noted and turgor normal TRAUMA: laceration (Multiple superficial lacerations to his left forearm) linear (deeper on the left wrist but still superficial) Course Consultations: Consultation #1: Discussed the patient with Dr. Em, psychiatrist and he kindly accepted the patient to his service. Time: 19:52 Vital Signs: Vital signs: Vital Signs Temperature 97.3 F L 09/27/20 21:37 Pulse Rate 88 09/27/20 21:37 Respiratory Rate 18 09/27/20 21:37 Blood Pressure 119/79 09/27/20 21:37 Pulse Oximetry 95 09/27/20 21:37 MDM - Psych MDM Narrative: Medical decision making narrative: 45-year-old male who presents emergency department with acute alcoholic intoxication with associated suicidal and homicidal ideation. The patient was violent and aggressive on arrival and required physical and chemical restraints. He did have an episode of hypoxia following the chemical restraints but this was quickly corrected with oxygen. Patient remained stable after that. His alcohol levels were significantly elevated and improved while he was in the emergency department. He was clinically cleared and admitted to the neuropsychiatric unit for further evaluation and management. Medical Records: Attestation: I reviewed the patient's medical records. Lab Data: Attestation: I reviewed the patient's lab results. Labs: Lab Results 09/27/20 09/27/20 09/27/20 Range/Units 13:58 13:58 15:40 WBC 8.4 (4.0-10.0) 10^3/ uL RBC 4.31 (4.1-5.3) 10^6/u L Hgb 15.8 (11.7-16.6) g/dL Hct 47.6 (42.0-52.0) % MCV 110.4 H (80-94) fL MCH 36.7 H (28.0-34.0) pg MCHC 33.2 (30.0-36.0) g/dL RDW 12.7 (12.1-15.1) % Plt Count 293 (130-400) 10^3/c mm MPV 9.4 (7.4-10.4) fL Neut % (Auto) 68.6 % Lymph % (Auto) 21.4 % [place] % (Auto) 8.7 % Eos % (Auto) 0.5 % Baso % (Auto) 0.4 % Neut # (Auto) 5.80 (1.8-7.7) 10^3/u L Lymph # (Auto) 1.8 (0.8-4.8) 10^3/u L [place] # (Auto) 0.7 (0.2-0.9) 10^3/u L Eos # (Auto) 0.0 (0.0-0.8) 10^3/u L Baso # (Auto) 0.0 (0.0-0.1) 10^3/u L Nucleated RBC % (a uto) 0 % Nucleated RBCs # 0.0 /100WBC Sodium 139 (136-145) mmol/L Potassium 3.5 (3.5-5.1) mmol/L Chloride 100 (98-107) mmol/L Carbon Dioxide 25 (22-29) mmol/L Anion Gap 17.5 (5-19) BUN 11 (6-20) mg/dL Creatinine 0.8 (0.7-1.2) mg/dL GFR Calculation 105.0 (90-130) mL/min Glucose 68 (65-115) mg/dL Calculated Osmolal ity 286 (285-295) mOsm/k g Calcium 8.2 L (8.5-10.5) mg/dL Total Bilirubin 0.3 (0.15-1.2) mg/dL AST 30 (0-40) U/L ALT 22 (0-41) U/L Alkaline Phosphata se 119 (40-130) IU/L Total Protein 7.6 (6.6-8.7) g/dL Albumin 4.2 (3.5-5.2) g/dL Globulin 3.4 (1.3-4.6) g/dL Urine Color Yellow (Yellow) Urine Appearance Hazy A (CLEAR) Urine pH 5 (5-7) Ur Specific Gravit y 1.005 (1.005-1.030) Urine Protein Neg (Negative) Urine Glucose (UA) Norm (Normal) Urine Ketones Negative (Negative) Urine Blood Neg (Negative) Urine Nitrate Negative (Negative) Urine Bilirubin Neg (Negative) Urine Urobilinogen Norm (Negative) mg/dL Ur Leukocyte Tammy ase Negative (Negative) Urine RBC None (0-2) /hpf Urine WBC None (0-5) /hpf Ur Squamous Epith Cells 0-4 H (0-5) /hpf Amorphous Sediment Not Reportable Urine Bacteria Trace (NONE) /hpf Urine Mucus Trace /hpf Salicylates < 0.3 L (3-10) mg/dL Urine Opiates Scre en (Negative) ng/mL Acetaminophen < 5.0 L (10-30) ug/mL Ur Barbiturates Sc reen (Negative) ng/mL Ur Phencyclidine S crn (Negative) ng/mL Ur Amphetamines Sc reen (Negative) ng/mL U Benzodiazepines Scrn (Negative) ng/mL Urine Cocaine Scre en (Negative) ng/mL U Marijuana (THC) Screen (Negative) ng/mL Ethyl Alcohol 325 H* (0-10) mg/dL 09/27/20 09/27/20 09/27/20 Range/Units 15:40 18:20 19:00 WBC (4.0-10.0) 10^3/ uL RBC (4.1-5.3) 10^6/u L Hgb (11.7-16.6) g/dL Hct (42.0-52.0) % MCV (80-94) fL MCH (28.0-34.0) pg MCHC (30.0-36.0) g/dL RDW (12.1-15.1) % Plt Count (130-400) 10^3/c mm MPV (7.4-10.4) fL Neut % (Auto) % Lymph % (Auto) % [place] % (Auto) % Eos % (Auto) % Baso % (Auto) % Neut # (Auto) (1.8-7.7) 10^3/u L Lymph # (Auto) (0.8-4.8) 10^3/u L [place] # (Auto) (0.2-0.9) 10^3/u L Eos # (Auto) (0.0-0.8) 10^3/u L Baso # (Auto) (0.0-0.1) 10^3/u L Nucleated RBC % (a uto) % Nucleated RBCs # /100WBC Sodium (136-145) mmol/L Potassium (3.5-5.1) mmol/L Chloride (98-107) mmol/L Carbon Dioxide (22-29) mmol/L Anion Gap (5-19) BUN (6-20) mg/dL Creatinine (0.7-1.2) mg/dL GFR Calculation (90-130) mL/min Glucose (65-115) mg/dL Calculated Osmolal ity (285-295) mOsm/k g Calcium (8.5-10.5) mg/dL Total Bilirubin (0.15-1.2) mg/dL AST (0-40) U/L ALT (0-41) U/L Alkaline Phosphata se (40-130) IU/L Total Protein (6.6-8.7) g/dL Albumin (3.5-5.2) g/dL Globulin (1.3-4.6) g/dL Urine Color (Yellow) Urine Appearance (CLEAR) Urine pH (5-7) Ur Specific Gravit y (1.005-1.030) Urine Protein (Negative) Urine Glucose (UA) (Normal) Urine Ketones (Negative) Urine Blood (Negative) Urine Nitrate (Negative) Urine Bilirubin (Negative) Urine Urobilinogen (Negative) mg/dL Ur Leukocyte Tammy ase (Negative) Urine RBC (0-2) /hpf Urine WBC (0-5) /hpf Ur Squamous Epith Cells (0-5) /hpf Amorphous Sediment Urine Bacteria (NONE) /hpf Urine Mucus /hpf Salicylates (3-10) mg/dL Urine Opiates Scre en Negative (Negative) ng/mL Acetaminophen (10-30) ug/mL Ur Barbiturates Sc reen Negative (Negative) ng/mL Ur Phencyclidine S crn Negative (Negative) ng/mL Ur Amphetamines Sc reen Negative (Negative) ng/mL U Benzodiazepines Scrn Negative (Negative) ng/mL Urine Cocaine Scre en Negative (Negative) ng/mL U Marijuana (THC) Screen Negative (Negative) ng/mL Ethyl Alcohol Cancelled 203 H (0-10) mg/dL Discharge Plan Discharge Patient Disposition: Admitted As Inpatient Admit Provider: Shola Em Clinical Impression: Alcohol intoxication, Alcohol use disorder Condition: Stable Coding Level of Care Code ED [employer] for Joeg Fwd Exam Comprehensive
[2020-09-27] MEDS: OLANZapine 5 mg ODT PO (22:23)
[2020-09-27] MEDS: fluoxetine 20 mg Capsule PO (22:23)
--- NOTE | 2020-09-27 22:41 | PC.NURSE ---
Skin assessment revealed multiple, approximately 20, self inflicted superficial cuts. None required sutures.
[2020-09-28 06:00] VITALS: BP 131/71; PULSE 72; RESP 15; TEMP 36.2; O2SAT 95
[2020-09-28] MEDS: multivitamin therapeutic Tablet 1 TAB PO (08:41)
[2020-09-28] MEDS: folic acid 1 mg Tablet PO (08:41)
[2020-09-28] MEDS: thiamine 100 mg Tablet PO (08:41)
[2020-09-28] MEDS: nicotine 21 mg Patch 1 PATCH TRANSDERMA (09:43)
[2020-09-28 14:00] VITALS: BP 149/99; PULSE 97; RESP 17; TEMP 37.1; O2SAT 94
[2020-09-28] MEDS: OLANZapine 5 mg ODT PO (16:34)
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
[2020-09-28 20:03] VITALS: BP 144/102; PULSE 75; RESP 17; TEMP 36.5; O2SAT 97
[2020-09-29 06:00] VITALS: BP 121/81; PULSE 73; RESP 16; TEMP 36.8; O2SAT 96
[2020-09-29] MEDS: multivitamin therapeutic Tablet 1 TAB PO (09:15)
[2020-09-29] MEDS: thiamine 100 mg Tablet PO (09:15)
[2020-09-29] MEDS: folic acid 1 mg Tablet PO (09:15)
[2020-09-29] MEDS: OLANZapine 5 mg ODT PO (09:18)
[2020-09-29] MEDS: nicotine 21 mg Patch 1 PATCH TRANSDERMA (09:19)
--- NOTE | 2020-09-29 09:19 | PC.NURSE ---
PRN med Patient requested medication for anxiety. His was just taken by ambulance to a hospital in another town. Given 5 mg zyprexa zydis po.
[2020-09-29 14:00] VITALS: BP 160/90; PULSE 105; RESP 18; TEMP 36.6; O2SAT 99
--- NOTE | 2020-09-29 18:50 | PM.NPN ---
Subjective NPU Subjective: Interval history: My presents today reporting that he is doing a little better with his shakiness/tremulousness in regard to his alcohol withdrawal. He was agreeable to the restarting of Prozac and Zyprexa today. He was out of his room today and less isolative. He reports he is eating okay and sleeping a little better. Mental Status Exam MSE Comments: This is a slender but well nourished white male who is up with improved grooming and eye contact. Multiple superficial lacerations on his left inner forearm are quite apparent. No abnormal movements except for psychomotor retardation. Cooperative with exam in no acute distress. Speech was decreased rate and volume. Mood described as all right/feeling a little less shaky, affect subdued. Thought process organized. Thought content: Patient denied current suicidal or homicidal ideation, there are no delusions reported or noted, he denied any auditory visualizations. Attention and concentration were improved and memory was mostly reliable but none were formally tested. He is alert and oriented x3. Insight and judgment are limited, impulse control is limited. Vitals/I&O/Wt Last Vital Signs Temp 98.7 F 09/29/20 22:00 Pulse 95 09/29/20 22:00 Resp 17 09/29/20 22:00 BP 155/105 09/29/20 22:00 Pulse Ox 97 09/29/20 22:00 Data NPU : 09/27/20 13:58 09/27/20 13:58 A&P Additional A&P Information (1) Alcohol intoxication: (2) Psychotic disorder: (3) Alcohol use disorder: (4) Methamphetamine abuse: (5) Adjustment disorder with mixed disturbance of emotions and conduct: (6) Bipolar 1 disorder, manic, mild: Additional A&P Information This is a 45-year-old white male with a long history of mental illness, psychosis, addiction with alcohol and methamphetamine centrally implicated who presents with active use, psychosis and significant withdrawal. 1. Continue current medication. Previous medications were restarted we will monitor for improvement. 2. Continue every 15 minute checks for safety. 3. Encourage individual, group and milieu therapies. 4. Encourage sober living treatment after discharge at the highest level of care to which he is willing to commit. Involuntary Hold Information 96 Hour Hold: 96 Hour Involuntary Admission: Yes 96 Hour Hold Ending Date: 10/03/20 96 Hour Hold Ending Time: 20:11 Attestations NPU Medical Necessity Statement*: Inpatient hospitalization is medically necessary and the clinically appropriate intervention at this time. We will monitor medications and make changes as indicated. Likely length of stay 2-4 days. Coding Level of Care Code Acute Metal Model Maker for Camila Alvares
--- NOTE | 2020-09-29 20:27 | PC.NURSE ---
ciwa 11 Ciwa 11, mild tremor, moderate sensitivity to light, bugs crawling on skin, intermittent nausea, no vomiting, denies si/hi, denies pain, denies ah/vh at this time, reports binge drinking 1/2gal whiskey nightly, reports 7 peptic ulcers, pt reports sensitivity to sound, reported findings to med nurse.
[2020-09-29] MEDS: OLANZapine 5 mg TABLET PO (21:00)
[2020-09-29] MEDS: fluoxetine 20 mg Capsule PO (21:00)
[2020-09-29] MEDS: hyDROXYzine 25 mg Capsule 50 MG PO (21:01)
[2020-09-29] MEDS: ondansetron 4 MG Tablet PO (21:01)
[2020-09-29] MEDS: nicotine 2 mg Gum BUCCAL (21:02)
[2020-09-29 22:00] VITALS: BP 155/105; PULSE 95; RESP 17; TEMP 37.1; O2SAT 97
--- NOTE | 2020-09-29 22:20 | PC.NURSE ---
Patient requested Visteral 50mg PO for anxiety with his scheduled 21:00 medication. He also requested Zofran 4mg PO for mild nausea. Both medications were given. At 21:45 patient stated his nausea was gone.
--- NOTE | 2020-09-30 02:00 | PC.NURSE ---
1830- removed ted patch, pt reported having vivid dreams/nightmare. Pt requested nicotine gum.
[2020-09-30 06:00] VITALS: BP 144/90; PULSE 63; RESP 16; TEMP 36.7; O2SAT 99
--- NOTE | 2020-09-30 06:19 | PC.NURSE ---
pm behavior pt cooperative, calm, showered, shaved, and slept well. Denied all. Very mild withdrawl s/s noted early in the shift. As the evening progressed, pt needed anxiety medication and medication for nausea. Med nurse notified. PRN's given, pt responded well to Visteril and Zofran. Will continue to observe
[2020-09-30] MEDS: OLANZapine 5 mg TABLET PO ×2 (07:58→20:03)
[2020-09-30] MEDS: thiamine 100 mg Tablet PO (07:58)
[2020-09-30] MEDS: pantoprazole DR 40 mg Tablet PO ×2 (07:58→20:03)
[2020-09-30] MEDS: folic acid 1 mg Tablet PO (07:59)
[2020-09-30] MEDS: multivitamin therapeutic Tablet 1 TAB PO (07:59)
[2020-09-30] MEDS: fluoxetine 20 mg Capsule PO (07:59)
[2020-09-30] MEDS: nicotine 21 mg Patch 1 PATCH TRANSDERMA (08:02)
--- NOTE | 2020-09-30 10:34 | PM.NPTHER ---
NPU Therapy Progress Note Therapy Progress Note Date: 09/29/20 Time In: 19:20 Time Out: 19:40 Symptoms Reported: depression, anxiety Mood: anxious, overwhelmed, polite Progress Note: AUTOMATIC COIL MACHINE OPERATOR approached Israel while visiting with other patients in the dayroom. He agrees to speak with AUTOMATIC COIL MACHINE OPERATOR. Israel vents about hx of using alcohol as coping mechanism. He describes his relationship with his and how it can be co-dependent at times. He identifies that alcohol is his go to when triggered by stress. He reports having treatment in the past has helped; however, he has ultimately always slipped back onto poor coping using substances. He does report trauma in his childhood and grief/loss issues over losing both his biological parents. Intervention: AUTOMATIC COIL MACHINE OPERATOR listened and provided support. Israel agrees he needs to re-engage in services. He does report transportation issues to [place] but was told therapy services could be offered at [facility] location and AUTOMATIC COIL MACHINE OPERATOR confirmed this. He agrees to follow up with outpatient upon discharge. Reported Goals Before Discharge: continue medication for stability
[2020-09-30 14:00] VITALS: BP 119/71; PULSE 73; RESP 18; TEMP 36.7; O2SAT 95
--- NOTE | 2020-09-30 17:46 | P.PN_ITS ---
Subjective NPU Subjective: Interval history: My presents today reporting that he is feeling continued improvement as his medications are fully restarted and his withdrawal is starting to diminish. We discussed the fact that his with not feeling well and he would like to be there for her. He feels better that he is connected with services and he will likely get assistance in some of the c hallenges of keeping his RV/trailer operational for water and electricity etc. We discussed the possibility of discharge in the next 48 hours. Mental Status Exam MSE Comments: This is a slender but well nourished white male who is up with improved grooming and eye contact. Multiple superficial lacerations on his left inner forearm are quite apparent. No abnormal movements except for resolving mild psychomotor retardation. Cooperative with exam in no acute distress. Speech was more normal rate and volume. Mood described as getting better, affect congruent. Thought process organized. Thought content: Patient denied suicidal or homicidal ideation, there are no delusions reported or noted, he denied any auditory visualizations. Attention and concentration were improved and memory was mostly reliable but none were formally tested. He is alert and oriented x3. Insight and judgment are limited, but improving impulse control is limited. Vitals/I&O/Wt Last Vital Signs Temp 98.2 F 09/30/20 19:56 Pulse 83 09/30/20 19:56 Resp 17 09/30/20 19:56 BP 136/94 09/30/20 19:56 Pulse Ox 98 09/30/20 19:56 Data NPU : 09/27/20 13:58 09/27/20 13:58 A&P Additional A&P Information (1) Alcohol intoxication: (2) Psychotic disorder: (3) Alcohol use disorder: (4) Methamphetamine abuse: (5) Adjustment disorder with mixed disturbance of emotions and conduct: (6) Bipolar 1 disorder, manic, mild: Additional A&P Information This is a 45-year-old white male with a long history of mental illness, psychosis, addiction with alcohol and methamphetamine centrally implicated who presents with active use, psychosis and improving withdrawal. 1. Continue current medication. 2. Continue every 15 minute checks for safety. 3. Encourage individual, group and milieu therapies. 4. Encourage sober living treatment after discharge at the highest level of care to which he is willing to commit. Involuntary Hold Information 96 Hour Hold: 96 Hour Involuntary Admission: Yes 96 Hour Hold Ending Date: 10/03/20 96 Hour Hold Ending Time: 20:11 Attestations NPU Medical Necessity Statement*: Inpatient hospitalization is medically necessary and the clinically appropriate intervention at this time. We will monitor medications and make changes as indicated. Likely length of stay 1-2 days. Coding Level of Care Code Acute Clam Shucking Machine Tender for Camila Alvares
[2020-09-30 19:56] VITALS: BP 136/94; PULSE 83; RESP 17; TEMP 36.8; O2SAT 98
[2020-09-30] MEDS: nicotine 2 mg Gum BUCCAL (21:53)
--- NOTE | 2020-09-30 21:54 | PC.NURSE ---
Servando patch removed
[2020-10-01 06:00] VITALS: BP 135/80; PULSE 61; RESP 17; TEMP 36.9; O2SAT 98
[2020-10-01] MEDS: fluoxetine 20 mg Capsule PO (08:15)
[2020-10-01] MEDS: folic acid 1 mg Tablet PO (08:15)
[2020-10-01] MEDS: pantoprazole DR 40 mg Tablet PO (08:15)
[2020-10-01] MEDS: multivitamin therapeutic Tablet 1 TAB PO (08:15)
[2020-10-01] MEDS: OLANZapine 5 mg TABLET PO (08:15)
[2020-10-01] MEDS: thiamine 100 mg Tablet PO (08:15)
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
[2020-10-01 14:00] VITALS: BP 135/80; PULSE 61; RESP 17; TEMP 36.9
[2020-10-01 15:31] VITALS: BP 135/80; PULSE 61; RESP 17; TEMP 36.9
== END 2020-10-01 15:32 | disposition home or self-care (01) | DRG 897 ==
LOC: ER 19:07 → NP 21:01
PROVIDERS: Admitting Provider Psychiatry & Neurology Psychiatry; Emergency Provider Family Medicine; PCP Family Medicine; Visit Provider Psychiatry & Neurology Psychiatry
DX: F10.121 Alcohol abuse with intoxication delirium (principal); R45.851 Suicidal ideations; F23 Brief psychotic disorder; Y90.9 Presence of alcohol in blood, level not specified; R45.850 Homicidal ideations; F43.25 Adjustment disorder with mixed disturbance of emotions and conduct; F31.9 Bipolar disorder, unspecified; F15.10 Other stimulant abuse, uncomplicated
CPT/HCPCS: 36415; 80053; 80306; 80307; 81001; 85025; 96372; 99285; J1200; J2060; J3411; J3486; Q0162

== ENCOUNTER 2020-10-25 19:50 | Emergency (ER) | payer SELFPAY ==
[2020-10-25 19:56] VITALS: BMI 22.2
[2020-10-25 20:03] VITALS: BP 123/68; PULSE 79; RESP 19; TEMP 36.6; O2SAT 96
[2020-10-25 20:08] LABS: Basophils % 0.4 %; Eosinophils # 0.1 10^3/uL (0.0-0.8); Eosinophils % 1.3 %; Hematocrit 44.1 % (42.0-52.0); Hemoglobin 14.9 g/dL (11.7-16.6); Lymphocytes # 2.6 10^3/uL (0.8-4.8); Lymphocytes % 33.3 %; Mean Corpuscular HGB Conc 33.8 g/dL (30.0-36.0); Mean Corpuscular Hemoglobin 36.7 pg (28.0-34.0); Mean Corpuscular Volume 108.6 fL (80-94); Mean Platelet Volume 8.9 fL (7.4-10.4); Monocytes # 0.8 10^3/uL (0.2-0.9); Monocytes % 10.6 %; Neutrophils % 54.1 %; Nucleated Red Blood Cells % 0 %; Platelet Count 336 10^3/cmm (130-400); Red Blood Count 4.06 10^6/uL (4.1-5.3); Red Cell Distribution Width 12.4 % (12.1-15.1); White Blood Count 7.8 10^3/uL (4.0-10.0)
[2020-10-25 20:30] LABS: Alanine Aminotransferase 28 U/L (0-41); Albumin Level 4.2 g/dL (3.5-5.2); Alcohol Level 232 mg/dL (0-10); Alkaline Phosphatase 101 IU/L (40-130); Anion Gap 14.8 (5-19); Aspartate Amino Transferase 34 U/L (0-40); Blood Urea Nitrogen 12 mg/dL (6-20); Carbon Dioxide 22 mmol/L (22-29); Chloride 107 mmol/L (98-107); Globulin 2.8 g/dL (1.3-4.6); Glomerular Filtration Rate 146.4 mL/min (90-130); Glucose 80 mg/dL (65-115); Osmolality Calculated 289 mOsm/kg (285-295); Potassium 3.8 mmol/L (3.5-5.1); Sodium 140 mmol/L (136-145); Total Bilirubin 0.3 mg/dL (0.15-1.2)
[2020-10-25 20:32] LABS: Acetaminophen < 5.0 ug/mL (10-30); Salicylate < 0.3 mg/dL (3-10)
--- NOTE | 2020-10-25 20:40 | W.ED.PSYCH ---
Documented by User: Maulik Concepcion DO 10/25/20 23:24 HPI - Psych General: Chief Complaint: Psychiatric Symptoms Stated Complaint: SI Time Seen by Provider: 10/25/20 20:02 History of Present Illness: HPI Narrative: 45-year-old male presents with suicidal ideations patient has known bipolar with adjustment disorder. Patient admits to frequent meth abuse with snorting his method of choice. Patient also admits to alcohol abuse and has been drinking today. Patient reports he is just tired of it all patient reports he was found standing out in the middle of the road trying to get ran over. Associated symptoms: Reports depression and suicidal ideation Review of Systems Const: Denies: fever(s) or chills Card: Denies: chest pain or palpitations Resp: Denies: dyspnea GI: Denies: abdominal pain, nausea or vomiting Skin/Breast: Denies: rash or pruritus Psych: Reports: depression, suicidal ideation and other (Substance abuse) [facility] [place] [facility] PFSH: Medical History Adjustment disorder with mixed disturbance of emotions and conduct Alcohol use disorder -Has known history of alcohol abuse&DT Bipolar 1 disorder, manic, mild Depressive disorder, not elsewhere classified Methamphetamine abuse -UDS positive for amphetamines/THC Surgical History H/O hernia repair History of appendectomy Family History Other Alcoholism /alcohol abuse Social History Smoking and tobacco status: unknown if ever smoked Alcohol intake: current Current gender identity: Male Physical Exam Const: COMMON NORMALS: alert GENERAL APPEARANCE: disheveled and odor of alcohol detected HENMT: COMMON NORMALS: normocephalic and atraumatic HEAD & SCALP: normocephalic and atraumatic Resp: COMMON NORMALS: normal respiratory effort and clear to auscultation bilaterally EFFORT & INSPECTION: Yes able to speak in complete sentences AUSCULTATION: clear to auscultation bilaterally Cardio: COMMON NORMALS: regular rate and regular rhythm RATE: regular rate RHYTHM: regular rhythm GI: COMMON NORMALS: Soft to palpation and non-tender PALPATION: Yes Soft to palpation Extremity: COMMON NORMALS: normal to inspection and full ROM Neuro: SENSORIUM/ORIENTATION: Yes alert SPEECH: speech normal Psych: ACTIVITY/MOTOR BEHAVIOR: Yes hyperactivity SPEECH: Yes rapid THOUGHT CONTENT: Yes Suicidality present Course Vital Signs: Vital signs: Vital Signs Temperature 97.9 F 10/25/20 20:03 Pulse Rate 87 10/25/20 23:25 Respiratory Rate 19 H 10/25/20 20:03 Blood Pressure 114/70 10/25/20 23:25 Pulse Oximetry 95 10/25/20 23:25 MDM - Psych MDM Narrative: Medical decision making narrative: Patient to be screened by Dr. Em once he joel up. Patient was signed out to Dr. Serna in stable condition Lab Data: Attestation: I reviewed the patient's lab results. Labs: Lab Results 10/25/20 10/25/20 10/25/20 Range/Units 20:02 20:02 23:27 WBC 7.8 (4.0-10.0) 10^3/ uL RBC 4.06 L (4.1-5.3) 10^6/u L Hgb 14.9 (11.7-16.6) g/dL Hct 44.1 (42.0-52.0) % MCV 108.6 H (80-94) fL MCH 36.7 H (28.0-34.0) pg MCHC 33.8 (30.0-36.0) g/dL RDW 12.4 (12.1-15.1) % Plt Count 336 (130-400) 10^3/c mm MPV 8.9 (7.4-10.4) fL Neut % (Auto) 54.1 % Lymph % (Auto) 33.3 % Garden % (Auto) 10.6 % Eos % (Auto) 1.3 % Baso % (Auto) 0.4 % Neut # (Auto) 4.20 (1.8-7.7) 10^3/u L Lymph # (Auto) 2.6 (0.8-4.8) 10^3/u L Garden # (Auto) 0.8 (0.2-0.9) 10^3/u L Eos # (Auto) 0.1 (0.0-0.8) 10^3/u L Baso # (Auto) 0.0 (0.0-0.1) 10^3/u L Nucleated RBC % (a uto) 0 % Nucleated RBCs # 0.0 /100WBC Sodium 140 (136-145) mmol/L Potassium 3.8 (3.5-5.1) mmol/L Chloride 107 (98-107) mmol/L Carbon Dioxide 22 (22-29) mmol/L Anion Gap 14.8 (5-19) BUN 12 (6-20) mg/dL Creatinine 0.6 L (0.7-1.2) mg/dL GFR Calculation 146.4 H (90-130) mL/min Glucose 80 (65-115) mg/dL Calculated Osmolal ity 289 (285-295) mOsm/k g Calcium 8.0 L (8.5-10.5) mg/dL Total Bilirubin 0.3 (0.15-1.2) mg/dL AST 34 (0-40) U/L ALT 28 (0-41) U/L Alkaline Phosphata se 101 (40-130) IU/L Total Protein 7.0 (6.6-8.7) g/dL Albumin 4.2 (3.5-5.2) g/dL Globulin 2.8 (1.3-4.6) g/dL Urine Color (Yellow) Urine Appearance (CLEAR) Urine pH (5-7) Ur Specific Gravit y (1.005-1.030) Urine Protein (Negative) Urine Glucose (UA) (Normal) Urine Ketones (Negative) Urine Blood (Negative) Urine Nitrate (Negative) Urine Bilirubin (Negative) Urine Urobilinogen (Negative) mg/dL Ur Leukocyte Tammy ase (Negative) Salicylates < 0.3 L (3-10) mg/dL Urine Opiates Scre en (Negative) ng/mL Acetaminophen < 5.0 L (10-30) ug/mL Ur Barbiturates Sc reen (Negative) ng/mL Ur Phencyclidine S crn (Negative) ng/mL Ur Amphetamines Sc reen (Negative) ng/mL U Benzodiazepines Scrn (Negative) ng/mL Urine Cocaine Scre en (Negative) ng/mL U Marijuana (THC) Screen (Negative) ng/mL Ethyl Alcohol 232 H 131 H (0-10) mg/dL 10/25/20 10/25/20 Range/Units 23:38 23:38 WBC (4.0-10.0) 10^3/ uL RBC (4.1-5.3) 10^6/u L Hgb (11.7-16.6) g/dL Hct (42.0-52.0) % MCV (80-94) fL MCH (28.0-34.0) pg MCHC (30.0-36.0) g/dL RDW (12.1-15.1) % Plt Count (130-400) 10^3/c mm MPV (7.4-10.4) fL Neut % (Auto) % Lymph % (Auto) % Garden % (Auto) % Eos % (Auto) % Baso % (Auto) % Neut # (Auto) (1.8-7.7) 10^3/u L Lymph # (Auto) (0.8-4.8) 10^3/u L Garden # (Auto) (0.2-0.9) 10^3/u L Eos # (Auto) (0.0-0.8) 10^3/u L Baso # (Auto) (0.0-0.1) 10^3/u L Nucleated RBC % (a uto) % Nucleated RBCs # /100WBC Sodium (136-145) mmol/L Potassium (3.5-5.1) mmol/L Chloride (98-107) mmol/L Carbon Dioxide (22-29) mmol/L Anion Gap (5-19) BUN (6-20) mg/dL Creatinine (0.7-1.2) mg/dL GFR Calculation (90-130) mL/min Glucose (65-115) mg/dL Calculated Osmolal ity (285-295) mOsm/k g Calcium (8.5-10.5) mg/dL Total Bilirubin (0.15-1.2) mg/dL AST (0-40) U/L ALT (0-41) U/L Alkaline Phosphata se (40-130) IU/L Total Protein (6.6-8.7) g/dL Albumin (3.5-5.2) g/dL Globulin (1.3-4.6) g/dL Urine Color Yellow (Yellow) Urine Appearance Clear (CLEAR) Urine pH 5 (5-7) Ur Specific Gravit y 1.020 (1.005-1.030) Urine Protein Neg (Negative) Urine Glucose (UA) Norm (Normal) Urine Ketones Negative (Negative) Urine Blood Neg (Negative) Urine Nitrate Negative (Negative) Urine Bilirubin Neg (Negative) Urine Urobilinogen Norm (Negative) mg/dL Ur Leukocyte Tammy ase Negative (Negative) Salicylates (3-10) mg/dL Urine Opiates Scre en Negative (Negative) ng/mL Acetaminophen (10-30) ug/mL Ur Barbiturates Sc reen Negative (Negative) ng/mL Ur Phencyclidine S crn Negative (Negative) ng/mL Ur Amphetamines Sc reen Negative (Negative) ng/mL U Benzodiazepines Scrn Negative (Negative) ng/mL Urine Cocaine Scre en Negative (Negative) ng/mL U Marijuana (THC) Screen Negative (Negative) ng/mL Ethyl Alcohol (0-10) mg/dL Discharge Plan Discharge Patient Disposition: Home Clinical Impression: Alcohol use disorder, Methamphetamine abuse Condition: Stable Prescriptions: New chlordiazepoxide HCl 25 mg capsule 25 mg PO TID PRN (Reason: alcohol withdrawal) Qty: 9 RF: 0 No Action thiamine mononitrate (vit B1) [Vitamin B-1 (mononitrate)] 100 mg Tablet 100 mg PO DAILY 30 Days Qty: 30 RF: 1 olanzapine 5 mg tablet 5 mg PO BID@ RF: 0 pantoprazole 40 mg tablet,delayed release (DR/EC) 40 mg PO BID@ RF: 0 fluoxetine 20 mg capsule 20 mg PO DAILY RF: 0 Discharge Orders: Discharge ED (Routine); Ordered 10/26/20 Ordered By: Edenilson Serna Discharge Diet: Advance as tolerated Discharge Activity: Resume usual activity Patient Instructions: Alcohol Withdrawal (ED), Opioid Safety Coding Level of Care Code ED Tariff Counsel for Chg Fwd Exam Comprehensive Documented by User: Edenilson Serna MD 10/26/20 04:26 HPI - Psych General: Chief Complaint: Psychiatric Symptoms Stated Complaint: SI Time Seen by Provider: 10/25/20 20:02 PFSH ED PFSH: Medical History Adjustment disorder with mixed disturbance of emotions and conduct Alcohol use disorder -Has known history of alcohol abuse&DT Bipolar 1 disorder, manic, mild Depressive disorder, not elsewhere classified Methamphetamine abuse -UDS positive for amphetamines/THC Surgical History H/O hernia repair History of appendectomy Family History Other Alcoholism /alcohol abuse Social History Smoking and tobacco status: unknown if ever smoked Alcohol intake: current Current gender identity: Male Course Vital Signs: Vital signs: Vital Signs Temperature 97.9 F 10/25/20 20:03 Pulse Rate 87 10/25/20 23:25 Respiratory Rate 19 H 10/25/20 20:03 Blood Pressure 114/70 10/25/20 23:25 Pulse Oximetry 95 10/25/20 23:25 MDM - Psych MDM Narrative: Medical decision making narrative: Patient was observed in the emergency department overnight during which time his mental status regained. At the time of my exam, he is eaten and had a long nap and is now alert and oriented with no suicidal or homicidal ideation. He starts to have a small tremor in his hands. He states that he gets bed alcohol withdrawals and sometimes his seizures thus he does not feel strongly motivated to stop drinking alcohol. I discussed with him possible medication that could help, including Librium, and he agrees to try taking a 3-day course of Librium to make an attempt to quit drinking alcohol. He knows he is welcome back in the emergency department should his symptoms get worse before he can be seen as an outpatient. Lab Data: Labs: Lab Results 10/25/20 10/25/20 10/25/20 Range/Units 20:02 20:02 23:27 WBC 7.8 (4.0-10.0) 10^3/ uL RBC 4.06 L (4.1-5.3) 10^6/u L Hgb 14.9 (11.7-16.6) g/dL Hct 44.1 (42.0-52.0) % MCV 108.6 H (80-94) fL MCH 36.7 H (28.0-34.0) pg MCHC 33.8 (30.0-36.0) g/dL RDW 12.4 (12.1-15.1) % Plt Count 336 (130-400) 10^3/c mm MPV 8.9 (7.4-10.4) fL Neut % (Auto) 54.1 % Lymph % (Auto) 33.3 % Garden % (Auto) 10.6 % Eos % (Auto) 1.3 % Baso % (Auto) 0.4 % Neut # (Auto) 4.20 (1.8-7.7) 10^3/u L Lymph # (Auto) 2.6 (0.8-4.8) 10^3/u L Garden # (Auto) 0.8 (0.2-0.9) 10^3/u L Eos # (Auto) 0.1 (0.0-0.8) 10^3/u L Baso # (Auto) 0.0 (0.0-0.1) 10^3/u L Nucleated RBC % (a uto) 0 % Nucleated RBCs # 0.0 /100WBC Sodium 140 (136-145) mmol/L Potassium 3.8 (3.5-5.1) mmol/L Chloride 107 (98-107) mmol/L Carbon Dioxide 22 (22-29) mmol/L Anion Gap 14.8 (5-19) BUN 12 (6-20) mg/dL Creatinine 0.6 L (0.7-1.2) mg/dL GFR Calculation 146.4 H (90-130) mL/min Glucose 80 (65-115) mg/dL Calculated Osmolal ity 289 (285-295) mOsm/k g Calcium 8.0 L (8.5-10.5) mg/dL Total Bilirubin 0.3 (0.15-1.2) mg/dL AST 34 (0-40) U/L ALT 28 (0-41) U/L Alkaline Phosphata se 101 (40-130) IU/L Total Protein 7.0 (6.6-8.7) g/dL Albumin 4.2 (3.5-5.2) g/dL Globulin 2.8 (1.3-4.6) g/dL Urine Color (Yellow) Urine Appearance (CLEAR) Urine pH (5-7) Ur Specific Gravit y (1.005-1.030) Urine Protein (Negative) Urine Glucose (UA) (Normal) Urine Ketones (Negative) Urine Blood (Negative) Urine Nitrate (Negative) Urine Bilirubin (Negative) Urine Urobilinogen (Negative) mg/dL Ur Leukocyte Tammy ase (Negative) Salicylates < 0.3 L (3-10) mg/dL Urine Opiates Scre en (Negative) ng/mL Acetaminophen < 5.0 L (10-30) ug/mL Ur Barbiturates Sc reen (Negative) ng/mL Ur Phencyclidine S crn (Negative) ng/mL Ur Amphetamines Sc reen (Negative) ng/mL U Benzodiazepines Scrn (Negative) ng/mL Urine Cocaine Scre en (Negative) ng/mL U Marijuana (THC) Screen (Negative) ng/mL Ethyl Alcohol 232 H 131 H (0-10) mg/dL 10/25/20 10/25/20 Range/Units 23:38 23:38 WBC (4.0-10.0) 10^3/ uL RBC (4.1-5.3) 10^6/u L Hgb (11.7-16.6) g/dL Hct (42.0-52.0) % MCV (80-94) fL MCH (28.0-34.0) pg MCHC (30.0-36.0) g/dL RDW (12.1-15.1) % Plt Count (130-400) 10^3/c mm MPV (7.4-10.4) fL Neut % (Auto) % Lymph % (Auto) % Garden % (Auto) % Eos % (Auto) % Baso % (Auto) % Neut # (Auto) (1.8-7.7) 10^3/u L Lymph # (Auto) (0.8-4.8) 10^3/u L Garden # (Auto) (0.2-0.9) 10^3/u L Eos # (Auto) (0.0-0.8) 10^3/u L Baso # (Auto) (0.0-0.1) 10^3/u L Nucleated RBC % (a uto) % Nucleated RBCs # /100WBC Sodium (136-145) mmol/L Potassium (3.5-5.1) mmol/L Chloride (98-107) mmol/L Carbon Dioxide (22-29) mmol/L Anion Gap (5-19) BUN (6-20) mg/dL Creatinine (0.7-1.2) mg/dL GFR Calculation (90-130) mL/min Glucose (65-115) mg/dL Calculated Osmolal ity (285-295) mOsm/k g Calcium (8.5-10.5) mg/dL Total Bilirubin (0.15-1.2) mg/dL AST (0-40) U/L ALT (0-41) U/L Alkaline Phosphata se (40-130) IU/L Total Protein (6.6-8.7) g/dL Albumin (3.5-5.2) g/dL Globulin (1.3-4.6) g/dL Urine Color Yellow (Yellow) Urine Appearance Clear (CLEAR) Urine pH 5 (5-7) Ur Specific Gravit y 1.020 (1.005-1.030) Urine Protein Neg (Negative) Urine Glucose (UA) Norm (Normal) Urine Ketones Negative (Negative) Urine Blood Neg (Negative) Urine Nitrate Negative (Negative) Urine Bilirubin Neg (Negative) Urine Urobilinogen Norm (Negative) mg/dL Ur Leukocyte Tammy ase Negative (Negative) Salicylates (3-10) mg/dL Urine Opiates Scre en Negative (Negative) ng/mL Acetaminophen (10-30) ug/mL Ur Barbiturates Sc reen Negative (Negative) ng/mL Ur Phencyclidine S crn Negative (Negative) ng/mL Ur Amphetamines Sc reen Negative (Negative) ng/mL U Benzodiazepines Scrn Negative (Negative) ng/mL Urine Cocaine Scre en Negative (Negative) ng/mL U Marijuana (THC) Screen Negative (Negative) ng/mL Ethyl Alcohol (0-10) mg/dL Discharge Plan Discharge Patient Disposition: Home Clinical Impression: Alcohol use disorder, Methamphetamine abuse Condition: Stable Prescriptions: New chlordiazepoxide HCl 25 mg capsule 25 mg PO TID PRN (Reason: alcohol withdrawal) Qty: 9 RF: 0 No Action thiamine mononitrate (vit B1) [Vitamin B-1 (mononitrate)] 100 mg Tablet 100 mg PO DAILY 30 Days Qty: 30 RF: 1 olanzapine 5 mg tablet 5 mg PO BID@ RF: 0 pantoprazole 40 mg tablet,delayed release (DR/EC) 40 mg PO BID@ RF: 0 fluoxetine 20 mg capsule 20 mg PO DAILY RF: 0 Discharge Orders: Discharge ED (Routine); Ordered 10/26/20 Ordered By: Edenilson Serna Discharge Diet: Advance as tolerated Discharge Activity: Resume usual activity Patient Instructions: Alcohol Withdrawal (ED), Opioid Safety Coding Level of Care Code ED Tariff Counsel for Camila Fwd Exam Comprehensive
--- NOTE | 2020-10-25 21:04 | PC.PHAR ---
pt states he cant think and doesnt know what hes taking-medications entered are rxs that were written on 10/01/20
[2020-10-25 23:25] VITALS: BP 114/70; PULSE 87; O2SAT 95
[2020-10-25 23:46] LABS: Add Urine Microscopic? NO; Charge for UA Resulting for Rev
[2020-10-25 23:48] LABS: Bilirubin Urine Neg (Negative); Blood Urine Neg (Negative); Glucose Urine UA Norm (Normal); Ketones Urine Negative (Negative); Leukocyte Esterase Urine Negative (Negative); Nitrate Urine Negative (Negative); Protein Urine Neg (Negative); Urine Appearance Clear (CLEAR); Urine Color Yellow (Yellow); Urobilinogen Urine Norm (Negative); pH Urine 5 (5-7)
[2020-10-25 23:57] LABS: Alcohol Level 131 mg/dL (0-10)
[2020-10-26 00:56] LABS: Amphetamines Screen Urine Negative (Negative); Barbiturates Screen Urine Negative (Negative); Benzodiazepines Screen Urine Negative (Negative); Cocaine Screen Urine Negative (Negative); Opiate Screen Urine Negative (Negative); PCP Screen Urine Negative (Negative); THC Screen Urine Negative (Negative)
[2020-10-26] MEDS: chlordiazePOXIDE 25 mg Capsule PO (04:30)
== END 2020-10-26 04:36 | disposition home or self-care (01) ==
PROVIDERS: Student in an Organized Health Care Education/Training Program; Emergency Provider Student in an Organized Health Care Education/Training Program
DX: F10.99 Alcohol use, unspecified with unspecified alcohol-induced disorder (principal); F15.10 Other stimulant abuse, uncomplicated; F31.89 Other bipolar disorder; Y90.7 Blood alcohol level of 200-239 mg/100 ml
CPT/HCPCS: 80053; 80306; 80307; 81003; 85025; 99284

== ENCOUNTER 2020-11-05 01:28 | Inpatient (IN) | payer SELFPAY ==
[2020-11-05] VITALS (7 sets, daily range): BP systolic 110–130; BP diastolic 65–84; PULSE 71–104; RESP 14–18; TEMP 36.4–37.1; O2SAT 95–99; BMI 20.7
[2020-11-05 02:06] LABS: Basophils % 0.3 %; Eosinophils # 0.3 10^3/uL (0.0-0.8); Eosinophils % 5.1 %; Hematocrit 39.9 % (42.0-52.0); Hemoglobin 13.9 g/dL (11.7-16.6); Lymphocytes # 1.7 10^3/uL (0.8-4.8); Lymphocytes % 27.9 %; Mean Corpuscular HGB Conc 34.8 g/dL (30.0-36.0); Mean Corpuscular Hemoglobin 37.4 pg (28.0-34.0); Mean Corpuscular Volume 107.3 fL (80-94); Mean Platelet Volume 9.3 fL (7.4-10.4); Monocytes # 0.8 10^3/uL (0.2-0.9); Monocytes % 13.7 %; Neutrophils # 3.24 10^3/uL (1.8-7.7); Neutrophils % 52.8 %; Nucleated Red Blood Cells % 0 %; Platelet Count 270 10^3/cmm (130-400); Red Blood Count 3.72 10^6/uL (4.1-5.3); White Blood Count 6.1 10^3/uL (4.0-10.0)
[2020-11-05 02:07] LABS: Add Urine Microscopic? NO; Charge for UA Resulting for Rev
[2020-11-05 02:09] LABS: Bilirubin Urine Neg (Negative); Blood Urine Neg (Negative); Glucose Urine UA Norm (Normal); Ketones Urine Negative (Negative); Leukocyte Esterase Urine Negative (Negative); Nitrate Urine Negative (Negative); Protein Urine Neg (Negative); Urine Appearance Clear (CLEAR); Urine Color Yellow (Yellow); Urobilinogen Urine Norm (Negative); pH Urine 5 (5-7)
[2020-11-05 02:18] LABS: Amphetamines Screen Urine Negative (Negative); Barbiturates Screen Urine Negative (Negative); Benzodiazepines Screen Urine Positive (Negative); Cocaine Screen Urine Negative (Negative); Opiate Screen Urine Negative (Negative); PCP Screen Urine Negative (Negative); THC Screen Urine Negative (Negative)
[2020-11-05 02:31] LABS: Alanine Aminotransferase 30 U/L (0-41); Alcohol Level 150 mg/dL (0-10); Alkaline Phosphatase 106 IU/L (40-130); Aspartate Amino Transferase 32 U/L (0-40); Blood Urea Nitrogen 23 mg/dL (6-20); Calcium 8.3 mg/dL (8.5-10.5); Carbon Dioxide 24 mmol/L (22-29); Chloride 107 mmol/L (98-107); Globulin 2.9 g/dL (1.3-4.6); Glomerular Filtration Rate 91.7 mL/min (90-130); Glucose 93 mg/dL (65-115); Osmolality Calculated 299 mOsm/kg (285-295); Sodium 143 mmol/L (136-145); Total Bilirubin 0.2 mg/dL (0.15-1.2); Total Protein 6.9 g/dL (6.6-8.7)
[2020-11-05 02:38] LABS: Acetaminophen < 5.0 ug/mL (10-30); Salicylate < 0.3 mg/dL (3-10)
[2020-11-05] MEDS: thiamine 100 mg Tablet PO (10:00)
[2020-11-05] MEDS: fluoxetine 20 mg Capsule PO (10:00)
[2020-11-05] MEDS: OLANZapine 5 mg TABLET PO (10:00)
[2020-11-05] MEDS: multivitamin therapeutic Tablet 1 TAB PO (10:00)
[2020-11-05] MEDS: folic acid 1 mg Tablet PO (10:00)
--- NOTE | 2020-11-05 12:23 | P.HP_ITS ---
Providers/Chief Complaint Admitting Physician: Agatha Yao DO Chief Complaint: SI/ETOH HPI NPU History of Present Illness Israel Gordon is a 45 year old male presenting with suicidal ideation in the context of alcohol intoxication per previous presentations. Patient has history of polysubstance abuse but denies any recent illicit substance abuse although urine drug screen was positive for benzodiazepines but he was prescribed a few chlordiazepoxide at last emergency department visit a few days ago to assist with alcohol detox. Patient has reported history of bipolar disorder and schizoaffective disorder although diagnostically this is difficult to clarify at this time given patient's longstanding use of alcohol and other substances and no clear episodes of jennifer or hypomania or disorganized speech or behavior or perceptual disturbances outside the context of substance or alcohol use. Jorge marin reports last use of alcohol was within the last day and presented to the emergency department with a blood alcohol level of 150. Patient continues to report some mood symptoms, depressive symptoms but currently denies any suicidal ideation although he does report intermittent suicidal ideation in the context of ongoing life stressors but denies any active intent or plan and denies any past suicide attempt or self-harm behavior. Patient currently denying any perceptual disturbances, denies any auditory or visual loose Nations but states that he was experiencing some perceptual disturbances prior to coming to the emergency department in the context of recent alcohol use. Patient has not been compliant with post discharge follow-up for mental health care but did do a phone intake a few days ago with plan to follow-up with outpatient medication management and therapy services at [facility]. Patient continues to report living in an RV with no electric or water with his and reports getting family support. Review of Systems General: Reports: 10 or more systems reviewed and unremarkable except in HPI and below Meds NPU Home Medications Medication Instructions Recorded Confirmed Last Taken Type fluoxetine 20 mg PO DAILY 10/25/20 11/05/20 07/20/20 09:00 History chlordiazepoxide HCl 25 mg PO TID PRN #9 cap 10/26/20 11/05/20 07/23/20 09:00 Rx olanzapine 5 mg PO DAILY 11/05/20 11/05/20 07/20/20 09:00 History Allergies Allergy/AdvReac Type Severity Reaction Status Date / Time No Known Allergies Allergy Verified 11/05/20 04:46 PFSH NPU PFSH: Medical History Adjustment disorder with mixed disturbance of emotions and conduct Alcohol use disorder -Has known history of alcohol abuse&DT Bipolar 1 disorder, manic, mild Depressive disorder, not elsewhere classified Methamphetamine abuse -UDS positive for amphetamines/THC Psychiatric care Surgical History H/O hernia repair History of appendectomy Family History Other Alcoholism /alcohol abuse Social History Smoking and tobacco status: unknown if ever smoked Alcohol intake: current Current gender identity: Male Other Psychiatric History: Other Psychiatric History: Poor compliance with mental health follow-up, did complete phone interview for establishing care at [facility] a few days ago Multiple past psychiatric hospitalizations in the context of alcohol intoxication and suicidal ideation Denies past suicide attempts, denies past self-harm behavior Mental Status Exam MSE Comments: Sitting in the day room, bearded, disheveled, unkempt, appropriately dressed in hospital scrubs, calm, cooperative, good eye contact Psychomotor activity is decreased, no agitation Speech, sparse, low volume, normal rate, not pressured I feel tired, congruent affect, not labile Alert and oriented to person, place, time Intellectual functioning appears to be average at best based on vocabulary, interview Memory concentration are fair per interview Thought process, linear, no flight of ideas, no looseness of associations Thought content, paranoid delusions, does not appear to be attending to any internal stimuli, no suicidal or homicidal ideation Insight and judgment appear to be fair at best Vitals/I&O/Wt Last Vital Signs Temp 98.7 F 11/05/20 06:00 Pulse 85 11/05/20 06:00 Resp 15 11/05/20 06:00 BP 110/68 11/05/20 06:00 Pulse Ox 96 11/05/20 04:24 Weight last 48 hrs Weight 65.771 kg Data NPU : 11/05/20 01:58 11/05/20 01:58 A&P Assessment and plan (1) Alcohol use disorder: Status: Acute (2) Suicidal ideation: Status: Acute (3) Depression: Status: Acute Qualifiers: Depression Type: unspecified Qualified Code(s): F32.9 - Major depressive disorder, single episode, unspecified Additional A&P Information Patient with longstanding psychiatric issues with reported history of bipolar disorder and schizoaffective disorder although diagnostically confusing given no prolonged periods of sobriety and would likely benefit from substance and alcohol treatment. Patient currently presenting with suicidal ideation in the context of alcohol intoxication as well as multiple ongoing life stressors to include unstable living arrangement, financial stressors. Patient would benefit from medication stabilization and coordination for post discharge substance AND MENTAL HEALTH TREATMENT. VOLUNTARY ADMIT to inpatient psychiatry CONTINUE fluoxetine 20 mg daily CONTINUE Protonix 40 mg daily DISCONTINUE olanzapine START lurasidone 20 mg every evening with food targeting mood Encouraged patient to participate in unit activities to include group sessions, unit milieu Coordinate with social work post discharge mental health care follow-up Involuntary Hold Information 96 Hour Hold: 96 Hour Involuntary Admission: No Attestations NPU Medical Necessity Statement*: Psychiatric hospitalization is indicated for medication stabilization, coordination for safe discharge Anticipate hospital stay to exceed 2 midnights Time Spent in Patient Care: Greater than 35 minutes (>than 50% of time spent in counselling and/or direct pt care on unit) . Coding Level of Care Code Acute Inpatient Coder for Camila Alvares Diagnoses Alcohol use disorder Suicidal ideation R45.851 Depression F32.9 Depression Type: unspecified
[2020-11-05] MEDS: pantoprazole DR 40 mg Tablet PO (12:33)
[2020-11-05] MEDS: lurasidone 20 mg Tablet PO (17:05)
[2020-11-05] MEDS: nicotine 21 mg Patch 1 PATCH TRANSDERMA (17:09)
--- NOTE | 2020-11-05 17:43 | W.ED.PSYCH ---
HPI - Psych General: Chief Complaint: Psychiatric Symptoms Stated Complaint: SI/ETOH Time Seen by Provider: 11/05/20 02:05 History of Present Illness: HPI Narrative: 45-year-old male with a history of depression and alcohol use. He presents tonight mildly intoxicated. He gave references to voices from the trees telling him to harm his and himself. He is voluntary. He denies any recent illness. MD complaint: suicidal ideation and feels depressed Onset (ago): hour(s) Duration: constant History of same: Yes Relieving factors: none Exacerbating factors: alcohol Context: recent alcohol abuse Associated psychiatric symptoms: depression and suicidal ideation Associated symptoms: Reports auditory hallucinations and delusions If self harm: admits thoughts of self harm Review of Systems Const: Denies: fever(s) or chills Eyes: Denies: change in vision ENMT: Denies: odynophagia Card: Denies: chest pain, palpitations, irregular heart rhythm or orthopnea Resp: Reports: non-productive cough; Denies: dyspnea, productive cough or wheezing GI: Denies: abdominal pain, nausea or vomiting : Denies: difficulty urinating or hematuria Musc: Reports: back pain Skin/Breast: Denies: rash Neuro: Denies: headache(s) or dizziness Psych: Reports: auditory hallucinations PFSH ED PFSH: Medical History Adjustment disorder with mixed disturbance of emotions and conduct Alcohol use disorder -Has known history of alcohol abuse&DT Bipolar 1 disorder, manic, mild Depressive disorder, not elsewhere classified Methamphetamine abuse -UDS positive for amphetamines/THC Psychiatric care Surgical History H/O hernia repair History of appendectomy Family History Other Alcoholism /alcohol abuse Social History Smoking and tobacco status: unknown if ever smoked Alcohol intake: current Current gender identity: Male Physical Exam Const: GENERAL APPEARANCE: well developed ORIENTATION/CONSCIOUSNESS: Yes oriented to person and Yes oriented to place; not oriented to time HENMT: COMMON NORMALS: normocephalic HEAD & SCALP: normocephalic FACE & SINUS: normal facial exam NOSE: No nasal discharge present Eye: COMMON NORMALS: Equal, round and reactive pupils present, EOMs intact bilaterally and conjunctivae normal EYELID: eyelids normal CONJUNCTIVA: Yes conjunctivae normal PUPIL: Yes Equal, round and reactive pupils present Neck/C-Spine: GENERAL: No tracheal deviation Chest: COMMONS NORMALS: normal inspection of the chest CHEST: No tenderness Resp: COMMON NORMALS: clear to auscultation bilaterally EFFORT & INSPECTION: No tachypneic, No respiratory distress, No retractions, No uses accessory muscles and No tracheal deviation AUSCULTATION: clear to auscultation bilaterally, no rhonchi, no wheezes and lung sounds not diminished Cardio: COMMON NORMALS: regular rate and regular rhythm RATE: regular rate RHYTHM: regular rhythm HEART SOUNDS: no murmurs PERIPHERAL PULSES: radial pulses present GI: INSPECTION: No abdominal distension AUSCULTATION: No Hyperactive bowel sounds present and No Hypoactive bowel sounds present PALPATION: No Guarding due to palpation present (GI) and No Rigid due to palpation PERCUSSION: no dullness to percussion and no tympanic to percussion Neuro: SENSORIUM/ORIENTATION: Yes oriented to person, Yes oriented to place and No oriented to time Psych: APPEARANCE: Yes unkempt ATTITUDE: Yes calm ACTIVITY/MOTOR BEHAVIOR: Yes appropriate eye contact SPEECH: Yes slurred THOUGHT PROCESS: disorganized THOUGHT CONTENT: Yes Suicidality present and Yes delusions ATTENTION/CONCENTRATION: Yes attention grossly impaired and Yes concentration grossly impaired MEMORY/COGNITION: Yes memory grossly intact and Yes cognition grossly intact INSIGHT: Limited insight present (Psych) Skin: COMMON NORMALS: no rashes or lesions noted GENERAL SKIN EXAM: no rashes or lesions noted Course Consultations: Consultation #1: cholo Vital Signs: Vital signs: Vital Signs Temperature 98.7 F 11/05/20 14:00 Pulse Rate 85 11/05/20 14:00 Respiratory Rate 15 11/05/20 14:00 Blood Pressure 110/68 11/05/20 14:00 Pulse Oximetry 96 11/05/20 04:24 MDM - Psych MDM Narrative: Medical decision making narrative: 45-year-old male mildly intoxicated. He is hearing voices. Evidently they are telling him to harm himself and his . They are coming from the trees. He is medically stable. His alcohol level is well below 200. He will be admitted to psychiatry. He is voluntary. Lab Data: Labs: Lab Results 11/05/20 11/05/20 11/05/20 Range/Units 01:58 01:58 01:58 WBC 6.1 (4.0-10.0) 10^3/ uL RBC 3.72 L (4.1-5.3) 10^6/u L Hgb 13.9 (11.7-16.6) g/dL Hct 39.9 L (42.0-52.0) % MCV 107.3 H (80-94) fL MCH 37.4 H (28.0-34.0) pg MCHC 34.8 (30.0-36.0) g/dL RDW 13.0 (12.1-15.1) % Plt Count 270 (130-400) 10^3/c mm MPV 9.3 (7.4-10.4) fL Neut % (Auto) 52.8 % Lymph % (Auto) 27.9 % Stephens % (Auto) 13.7 % Eos % (Auto) 5.1 % Baso % (Auto) 0.3 % Neut # (Auto) 3.24 (1.8-7.7) 10^3/u L Lymph # (Auto) 1.7 (0.8-4.8) 10^3/u L Stephens # (Auto) 0.8 (0.2-0.9) 10^3/u L Eos # (Auto) 0.3 (0.0-0.8) 10^3/u L Baso # (Auto) 0.0 (0.0-0.1) 10^3/u L Nucleated RBC % (a uto) 0 % Nucleated RBCs # 0.0 /100WBC Sodium 143 (136-145) mmol/L Potassium 4.0 (3.5-5.1) mmol/L Chloride 107 (98-107) mmol/L Carbon Dioxide 24 (22-29) mmol/L Anion Gap 16.0 (5-19) BUN 23 H (6-20) mg/dL Creatinine 0.9 (0.7-1.2) mg/dL GFR Calculation 91.7 (90-130) mL/min Glucose 93 (65-115) mg/dL Calculated Osmolal ity 299 H (285-295) mOsm/k g Calcium 8.3 L (8.5-10.5) mg/dL Total Bilirubin 0.2 (0.15-1.2) mg/dL AST 32 (0-40) U/L ALT 30 (0-41) U/L Alkaline Phosphata se 106 (40-130) IU/L Total Protein 6.9 (6.6-8.7) g/dL Albumin 4.0 (3.5-5.2) g/dL Globulin 2.9 (1.3-4.6) g/dL Urine Color Yellow (Yellow) Urine Appearance Clear (CLEAR) Urine pH 5 (5-7) Ur Specific Gravit y 1.020 (1.005-1.030) Urine Protein Neg (Negative) Urine Glucose (UA) Norm (Normal) Urine Ketones Negative (Negative) Urine Blood Neg (Negative) Urine Nitrate Negative (Negative) Urine Bilirubin Neg (Negative) Urine Urobilinogen Norm (Negative) mg/dL Ur Leukocyte Tammy ase Negative (Negative) Salicylates < 0.3 L (3-10) mg/dL Urine Opiates Scre en (Negative) ng/mL Acetaminophen < 5.0 L (10-30) ug/mL Ur Barbiturates Sc reen (Negative) ng/mL Ur Phencyclidine S crn (Negative) ng/mL Ur Amphetamines Sc reen (Negative) ng/mL U Benzodiazepines Scrn (Negative) ng/mL Urine Cocaine Scre en (Negative) ng/mL U Marijuana (THC) Screen (Negative) ng/mL Ethyl Alcohol 150 H (0-10) mg/dL 11/05/20 Range/Units 01:58 WBC (4.0-10.0) 10^3/ uL RBC (4.1-5.3) 10^6/u L Hgb (11.7-16.6) g/dL Hct (42.0-52.0) % MCV (80-94) fL MCH (28.0-34.0) pg MCHC (30.0-36.0) g/dL RDW (12.1-15.1) % Plt Count (130-400) 10^3/c mm MPV (7.4-10.4) fL Neut % (Auto) % Lymph % (Auto) % Stephens % (Auto) % Eos % (Auto) % Baso % (Auto) % Neut # (Auto) (1.8-7.7) 10^3/u L Lymph # (Auto) (0.8-4.8) 10^3/u L Stephens # (Auto) (0.2-0.9) 10^3/u L Eos # (Auto) (0.0-0.8) 10^3/u L Baso # (Auto) (0.0-0.1) 10^3/u L Nucleated RBC % (a uto) % Nucleated RBCs # /100WBC Sodium (136-145) mmol/L Potassium (3.5-5.1) mmol/L Chloride (98-107) mmol/L Carbon Dioxide (22-29) mmol/L Anion Gap (5-19) BUN (6-20) mg/dL Creatinine (0.7-1.2) mg/dL GFR Calculation (90-130) mL/min Glucose (65-115) mg/dL Calculated Osmolal ity (285-295) mOsm/k g Calcium (8.5-10.5) mg/dL Total Bilirubin (0.15-1.2) mg/dL AST (0-40) U/L ALT (0-41) U/L Alkaline Phosphata se (40-130) IU/L Total Protein (6.6-8.7) g/dL Albumin (3.5-5.2) g/dL Globulin (1.3-4.6) g/dL Urine Color (Yellow) Urine Appearance (CLEAR) Urine pH (5-7) Ur Specific Gravit y (1.005-1.030) Urine Protein (Negative) Urine Glucose (UA) (Normal) Urine Ketones (Negative) Urine Blood (Negative) Urine Nitrate (Negative) Urine Bilirubin (Negative) Urine Urobilinogen (Negative) mg/dL Ur Leukocyte Tammy ase (Negative) Salicylates (3-10) mg/dL Urine Opiates Scre en Negative (Negative) ng/mL Acetaminophen (10-30) ug/mL Ur Barbiturates Sc reen Negative (Negative) ng/mL Ur Phencyclidine S crn Negative (Negative) ng/mL Ur Amphetamines Sc reen Negative (Negative) ng/mL U Benzodiazepines Scrn Positive H (Negative) ng/mL Urine Cocaine Scre en Negative (Negative) ng/mL U Marijuana (THC) Screen Negative (Negative) ng/mL Ethyl Alcohol (0-10) mg/dL Discharge Plan Discharge Patient Disposition: Admitted As Inpatient Admit Provider: Hernan Corbin Clinical Impression: Suicidal ideation, Acute psychosis Condition: Stable Coding Level of Care Code ED Gum Rolling Machine Operator for Joeg Fwd Exam Comprehensive
[2020-11-06] MEDS: nicotine 2 mg Gum BUCCAL ×3 (05:02→21:38)
[2020-11-06 06:00] VITALS: BP 138/90; PULSE 81; RESP 18; TEMP 36.9; O2SAT 97
[2020-11-06] MEDS: fluoxetine 20 mg Capsule PO (08:34)
[2020-11-06] MEDS: thiamine 100 mg Tablet PO (08:35)
[2020-11-06] MEDS: pantoprazole DR 40 mg Tablet PO (08:35)
[2020-11-06] MEDS: folic acid 1 mg Tablet PO (08:35)
[2020-11-06] MEDS: multivitamin therapeutic Tablet 1 TAB PO (08:35)
[2020-11-06] MEDS: lurasidone 20 mg Tablet PO (08:39)
--- NOTE | 2020-11-06 12:02 | PM.NPN ---
Subjective NPU Subjective: Interval history: Reports feeling much better today, denies any interval mood symptoms, denies any depressed symptoms, denies any suicidal ideation Reports that he did not sleep well Reports having a good appetite Denies any interval psychotic symptoms Reports tolerating medication with no reports of any medication side effects Mental Status Exam MSE Comments: Appropriately groomed and dressed, calm, cooperative, interactive, good eye contact Psychomotor activity is neither increased nor decreased, no agitation Speech, normal volume, normal rate, fair articulation, not pressured I feel pretty good, congruent affect, not labile Alert and oriented to person, place, time Memory concentration appear to be intact per interview Thought process, linear, no flight of ideas, no looseness of associations Thought content, no delusions, no hallucinations, no suicidal or homicidal ideation Insight and judgment appear to be fair at best Vitals/I&O/Wt Last Vital Signs Temp 98.5 F 11/06/20 06:00 Pulse 81 11/06/20 06:00 Resp 18 11/06/20 06:00 BP 138/90 11/06/20 06:00 Pulse Ox 97 11/06/20 06:00 Weight last 48 hrs Weight 65.771 kg Data NPU : 11/05/20 01:58 11/05/20 01:58 A&P Assessment and plan (1) Acute psychosis: Status: Acute (2) Suicidal ideation: Status: Acute (3) Depression: Status: Acute Qualifiers: Depression Type: unspecified Qualified Code(s): F32.9 - Major depressive disorder, single episode, unspecified (4) Alcohol use disorder: Status: Acute Additional A&P Information Patient quickly reconstituted after having suicidal ideation with alcohol intoxication, denies any alcohol withdrawal symptoms, denies any psychotic symptoms CONTINUE current medication, continue to monitor Coordinate with social media sr strategy manager for post discharge mental health follow-up Involuntary Hold Information 96 Hour Hold: 96 Hour Involuntary Admission: No Attestations NPU Medical Necessity Statement*: Continues to require psychiatric hospitalization for medication stabilization, coordination for safe discharge Coding Level of Care Code Acute Flasher Adjuster for Camila Alvares Diagnoses Acute psychosis F23 Suicidal ideation R45.851 Depression F32.9 Depression Type: unspecified Alcohol use disorder
[2020-11-06 14:00] VITALS: BP 140/87; PULSE 85; RESP 16; TEMP 36.5; O2SAT 95
--- NOTE | 2020-11-06 19:57 | PC.NURSE ---
The patient is worried about his liver and gall bladder. He would like to have them checked out while he is in the hospital. I referred him to the MD.
[2020-11-06 19:59] VITALS: BP 158/108; PULSE 87; RESP 16; TEMP 37; O2SAT 96
[2020-11-06] MEDS: trazodone 50 mg Tablet PO (20:08)
[2020-11-06] MEDS: hyDROXYzine 25 mg Capsule 50 MG PO (20:08)
--- NOTE | 2020-11-06 20:41 | PC.NURSE ---
At 2007, pt came to nurses desk requesting trazodone for sleep and hydroxyzine for anxiety by name. Trazodone 50mg po and hydroxyzine 50mg po given.
--- NOTE | 2020-11-06 21:06 | PC.NURSE ---
pt states feeling calmer then he was earlier. states when he takes the hydroxyzine and trazodone together, it calms his nerves enough he is able to deal with things so much better.
[2020-11-07] MEDS: nicotine 2 mg Gum BUCCAL ×2 (05:01→07:47)
[2020-11-07] MEDS: acetaminophen 325 mg Tablet 650 MG PO (05:59)
[2020-11-07 06:00] VITALS: BP 130/74; PULSE 78; RESP 22; TEMP 37.5; O2SAT 97
[2020-11-07] MEDS: thiamine 100 mg Tablet PO (07:47)
[2020-11-07] MEDS: folic acid 1 mg Tablet PO (07:48)
[2020-11-07] MEDS: pantoprazole DR 40 mg Tablet PO (07:48)
[2020-11-07] MEDS: fluoxetine 20 mg Capsule PO (07:48)
[2020-11-07] MEDS: multivitamin therapeutic Tablet 1 TAB PO (07:48)
[2020-11-07 08:58] VITALS: BP 130/74; PULSE 78; RESP 22; TEMP 37.5; O2SAT 97
--- NOTE | 2020-11-07 09:15 | PM.NDC ---
Diagnoses at Discharge Discharge Diagnosis (1) Acute psychosis: Status: Acute (2) Suicidal ideation: Status: Acute (3) Depression: Status: Acute Qualifiers: Depression Type: unspecified Qualified Code(s): F32.9 - Major depressive disorder, single episode, unspecified (4) Alcohol use disorder: Status: Acute Permanent problem details: -Has known history of alcohol abuse&DT Reason for Visit Reason for Visit: SI/ETOH Hospital Course Hospital Course 45 year old male presenting with suicidal ideation in the context of alcohol intoxication per previous presentations. Patient has history of polysubstance abuse but denies any recent illicit substance abuse although urine drug screen was positive for benzodiazepines but he was prescribed a few chlordiazepoxide at last emergency department visit a few days ago to assist with alcohol detox. Patient quickly reconstituted after becoming sober although he reports intermittent auditory hallucinations when not drinking outside of the hospital and was started on Latuda 20 mg in the evening with food which she tolerated well with no reports of any medication side effects. Patient continued on fluoxetine 20 mg daily without any issues or reported side effects. Patient participate in unit activities to include group sessions, unit milieu with no reports of any behavioral disturbances. Patient was provided resources for AA, treatment for alcohol use as well as coordination for post discharge mental health care follow-up. Patient was not suicidal and did not endorse any psychiatric symptoms at the time of discharge and did not appear to be an imminent threat of harm to self or others. Low to moderate risk of harm to self given no current suicidal ideation and no endorsement of any psychiatric symptoms although patient's risk may be elevated if he continues to use substances and alcohol which may lead to unexpected, impulsive behavior. Risk mitigation included psychiatric hospitalization, medication stabilization, recommendation to abstain from the use of substances and alcohol as well as coordination for safe discharge including post discharge mental health care follow-up and substance treatment. Patient communicated his understanding of the need to abstain from the use of substances and alcohol as well as the need for compliance with his medication, medication management and substance counseling/treatment in order to further mitigate his risk of harm to self and others. Involuntary Hold Information 96 Hour Hold: 96 Hour Involuntary Admission: No Mental Status Exam MSE Comments: Sitting next to the nurses station, calm, cooperative, good eye contact, appropriately groomed and dressed Psychomotor activity is neither increased nor decreased, no agitation Speech, normal volume, normal rate, fair articulation, not pressured I feel good, congruent affect, not labile Alert and oriented to person, place, time Memory concentration appear to be intact per interview Thought process, linear, no flight of ideas, no looseness of associations Thought content, no delusions, no hallucinations, no suicidal or homicidal ideation Insight and judgment appear to be intact Discharge Data Vitals: Last Vital Signs Temp 99.5 F 11/07/20 08:58 Pulse 78 11/07/20 08:58 Resp 22 H 11/07/20 08:58 BP 130/74 11/07/20 08:58 Pulse Ox 97 11/07/20 08:58 Discharge Plan Discharge Patient Disposition: Home Condition: Stable Prescriptions: New Vitamin B-1 (mononitrate) 100 mg Tablet 100 mg PO DAILY Qty: 30 RF: 0 Latuda 20 mg Tablet 20 mg PO 1700 Qty: 30 RF: 0 Continued fluoxetine 20 mg capsule 20 mg PO DAILY RF: 0 Discontinued olanzapine 5 mg Tablet 5 mg PO DAILY RF: 0 chlordiazepoxide HCl 25 mg capsule 25 mg PO TID PRN (Reason: alcohol withdrawal) Qty: 9 RF: 0 Discharge Orders: Discharge Order (Routine); Ordered 11/07/20 Ordered By: Agatha Yao Referrals: [facility] [Other] (Meetings are on Mondays 7PM-8PM) Gauri Thompson ([facility]) [Other] - 11/09/20 11:00 am [employer] ([facility] [Other] (Please call [employer] at your earliest convenience and ask for any funding to help with your living situation. ) Ramiro Yancey MD [Physician] - 12/15/20 3:00 pm Discharge Diet: Regular Discharge Activity: Resume usual activity Patient Instructions: Thiamine (Vitamin B-1) (By mouth), Lurasidone (By mouth), Anxiety (DC), Opioid Safety Discharge Attestations NPU Time Spent in Discharge Care*: greater than 30 min Status at Discharge: Cognitive status at discharge: cognitively intact, Behavioral status at discharge: cooperative, Functional status at discharge: independent ambulation Overall status at discharge: patient is back to baseline Coding Level of Care Code Acute Chg FW DC note Diagnoses Acute psychosis F23 Suicidal ideation R45.851 Depression F32.9 Depression Type: unspecified Alcohol use disorder
== END 2020-11-07 10:45 | disposition home or self-care (01) | DRG 881 ==
LOC: ER 02:07 → NP 10:21
PROVIDERS: Admitting Provider Hospitalist; Emergency Provider Emergency Medicine; Visit Provider Psychiatry & Neurology Psychiatry
DX: F32.9 Major depressive disorder, single episode, unspecified (principal); R45.851 Suicidal ideations; F23 Brief psychotic disorder; F10.129 Alcohol abuse with intoxication, unspecified; Y90.6 Blood alcohol level of 120-199 mg/100 ml; Z86.59 Personal history of other mental and behavioral disorders; Z73.3 Stress, not elsewhere classified; Z59.8 Other problems related to housing and economic circumstances
CPT/HCPCS: 80053; 80306; 80307; 81003; 85025; 99285

== ENCOUNTER 2020-11-14 00:32 | Emergency (ER) | payer SELFPAY ==
[2020-11-14] VITALS (7 sets, daily range): BP systolic 97–142; BP diastolic 51–97; PULSE 77–100; RESP 16–18; TEMP 36.7–37.2; O2SAT 97–100; BMI 24.3
--- NOTE | 2020-11-14 00:59 | XRR_ITS ---
PROCEDURE INFORMATION: Exam: XR Left Forearm Exam date and time: 11/14/2020 12:59 AM Age: 45 years old Clinical indication: Injury or trauma; Arm, lower and arm, upper; Swelling (edema); Arm, upper and elbow and arm, lower; Patient HX: Swelling and bruising to left arm after being arrested, ETOH TECHNIQUE: Imaging protocol: XR Left forearm. Views: 2 views. COMPARISON: No relevant prior studies available. FINDINGS: Bones/joints: Normal. Soft tissues: Subcutaneous edema seen within the distal left arm and proximal left forearm. XR/XR forearm LT 2V [id number] IMPRESSION: There are no acute osseous findings.
--- NOTE | 2020-11-14 00:59 | XRR_ITS ---
PROCEDURE INFORMATION: Exam: XR Left Elbow Exam date and time: 11/14/2020 12:59 AM Age: 45 years old Clinical indication: Injury or trauma; Other: Swelling and bruising to left arm after being arrested? ; Arm, lower and arm, upper; Swelling (edema); Arm, upper and elbow and arm, lower; Patient HX: Swelling and bruising to left arm after being arrested, ETOH TECHNIQUE: Imaging protocol: XR Left elbow. Views: 3 or more views. COMPARISON: No relevant prior studies available. FINDINGS: Bones/joints: Normal. Soft tissues: There is some subcutaneous edema seen within the distal left arm and proximal left 4 XR/XR elbow LT min 3V* [id number] IMPRESSION: There are no acute osseous findings.
--- NOTE | 2020-11-14 00:59 | USR_ITS ---
PROCEDURE INFORMATION: Exam: US Duplex Left Upper Extremity Veins, Limited Exam date and time: 11/14/2020 12:59 AM Age: 45 years old Clinical indication: Pain; Arm, upper and arm, lower; Left; Patient HX: PT can not cooperate at this time; Additional info: Arm pain TECHNIQUE: Imaging protocol: Real-time Duplex ultrasound of the Left Upper Extremity with 2-D hale scale, color Doppler flow and spectral waveform analysis with image documentation. Limited exam focused on the left upper extremity veins. COMPARISON: No relevant prior studies available. FINDINGS: Left deep veins: Unremarkable. Axillary and brachial veins are patent throughout without thrombus. Normal Doppler waveforms. Normal compressibility and/or augmentation response. Visualized internal jugular and subclavian veins are patent. Left superficial veins: Unremarkable. Visualized cephalic and basilic veins are patent without thrombus. Soft tissues: Unremarkable. US/[place] [id number] IMPRESSION: No evidence of deep vein thrombosis.
[2020-11-14 01:15] LABS: Basophils % 0.3 %; Eosinophils # 0.3 10^3/uL (0.0-0.8); Eosinophils % 2.7 %; Hematocrit 38.3 % (42.0-52.0); Hemoglobin 13.1 g/dL (11.7-16.6); Lymphocytes # 1.6 10^3/uL (0.8-4.8); Lymphocytes % 17.2 %; Mean Corpuscular HGB Conc 34.2 g/dL (30.0-36.0); Mean Corpuscular Hemoglobin 37.3 pg (28.0-34.0); Mean Corpuscular Volume 109.1 fL (80-94); Mean Platelet Volume 8.9 fL (7.4-10.4); Monocytes % 10.3 %; Neutrophils % 69.1 %; Nucleated Red Blood Cells % 0 %; Platelet Count 398 10^3/cmm (130-400); Red Blood Count 3.51 10^6/uL (4.1-5.3); Red Cell Distribution Width 12.3 % (12.1-15.1); White Blood Count 9.3 10^3/uL (4.0-10.0)
[2020-11-14] MEDS: LORazepam 2 mg/mL INJ 1 mL IM (01:17)
[2020-11-14] MEDS: haloperidol inj 5 mg/mL INJ 1 mL IM (01:18)
--- NOTE | 2020-11-14 01:30 | W.ED.PSYCH ---
Documented by User: Fransisco Berry MD 11/14/20 05:47 HPI - Psych General: Chief Complaint: Psychiatric Symptoms Stated Complaint: SI/ETOH Time Seen by Provider: 11/14/20 00:33 Source: patient and EMS Mode of arrival: EMS Limitations: no limitations History of Present Illness: HPI Narrative: 45-year-old male is very well-known to the ER and has a history of chronic alcoholism. He states that he was in [facility] 3 to 3 days ago and was arrested. He states that during the rest the injured his left arm. He states that he believes he had x-rays or [place] he states that arm is hurting worse. He does have swelling and bruising that arm. He states pain is sharp nature rates it a 7 out of 10. He states this is making him angry and he is having homicidal thoughts. Patient is very intoxicated here. He denies any suicidality. Associated symptoms: Reports depression Review of Systems Const: Denies: fever(s), chills, body aches or change in appetite Eyes: Denies: blurry vision or eye discomfort ENMT: Denies: throat pain or dental pain Card: Denies: chest pain Resp: Denies: dyspnea GI: Denies: abdominal pain, nausea, vomiting or diarrhea : Denies: dysuria Musc: Reports: extremity pain Skin/Breast: Denies: rash Neuro: Denies: headache(s) Psych: Reports: depression Byron/Lymph: Denies: easy bruising All/Imm: Denies: urticaria PFSH ED PFSH: Medical History Adjustment disorder with mixed disturbance of emotions and conduct Alcohol use disorder -Has known history of alcohol abuse&DT Bipolar 1 disorder, manic, mild Depressive disorder, not elsewhere classified Methamphetamine abuse -UDS positive for amphetamines/THC Psychiatric care Surgical History H/O hernia repair History of appendectomy Family History Other Alcoholism /alcohol abuse Social History Smoking and tobacco status: unknown if ever smoked Alcohol intake: current Current gender identity: Male Physical Exam Const: COMMON NORMALS: no acute distress, patient oriented x3 and healthy appearing HENMT: COMMON NORMALS: normocephalic and atraumatic HEAD & SCALP: normocephalic and atraumatic Eye: COMMON NORMALS: Equal, round and reactive pupils present and EOMs intact bilaterally PUPIL: Yes Equal, round and reactive pupils present Neck/C-Spine: COMMON NORMALS: full ROM and supple Chest: COMMONS NORMALS: normal inspection of the chest and normal palpation of entire chest wall Resp: COMMON NORMALS: normal respiratory effort, No retractions, No use of accessory muscles and clear to auscultation bilaterally AUSCULTATION: clear to auscultation bilaterally Cardio: COMMON NORMALS: regular rate, regular rhythm and No murmurs present (Cardio) RATE: regular rate RHYTHM: regular rhythm GI: COMMON NORMALS: Normal to inspection, nondistended, normoactive bowel sounds present, Soft to palpation, non-tender and no masses PALPATION: Yes Soft to palpation Extremity: COMMON NORMALS: full ROM NARRATIVE EXTREMITY EXAM: Bruising with swelling and tenderness to left elbow. No signs of tense compartments or no signs of compartment syndrome Neuro: COMMON NORMALS: patient oriented x3, moves all extremities and no focal motor deficits Psych: COMMON NORMALS: mental status grossly normal, Normal thought process present and cooperative THOUGHT PROCESS: Normal thought process present THOUGHT CONTENT: Yes Homicidality present Skin: COMMON NORMALS: no rashes or lesions noted and no wounds GENERAL SKIN EXAM: no rashes or lesions noted Course Vital Signs: Vital signs: Vital Signs Temperature 98.9 F 11/14/20 09:55 Pulse Rate 86 11/14/20 09:55 Respiratory Rate 18 11/14/20 09:55 Blood Pressure 97/54 11/14/20 09:55 Pulse Oximetry 98 11/14/20 09:55 MDM - Psych MDM Narrative: Medical decision making narrative: Patient presents here with alcohol intoxication. He did make homicidal statements as well I believe he is mainly intoxicated. We will let him sober up and have a psychiatric eval at that time. He does have contusions to his left arm but no signs of fracture or DVT. Patient's care turned over to Dr. Montejo at this time as he will receive a psych evaluation. Lab Data: Labs: Lab Results 11/14/20 11/14/20 Range/Units 01:00 01:00 WBC 9.3 (4.0-10.0) 10^3/ uL RBC 3.51 L (4.1-5.3) 10^6/u L Hgb 13.1 (11.7-16.6) g/dL Hct 38.3 L (42.0-52.0) % MCV 109.1 H (80-94) fL MCH 37.3 H (28.0-34.0) pg MCHC 34.2 (30.0-36.0) g/dL RDW 12.3 (12.1-15.1) % Plt Count 398 (130-400) 10^3/c mm MPV 8.9 (7.4-10.4) fL Neut % (Auto) 69.1 % Lymph % (Auto) 17.2 % Dane % (Auto) 10.3 % Eos % (Auto) 2.7 % Baso % (Auto) 0.3 % Neut # (Auto) 6.40 (1.8-7.7) 10^3/u L Lymph # (Auto) 1.6 (0.8-4.8) 10^3/u L Dane # (Auto) 1.0 H (0.2-0.9) 10^3/u L Eos # (Auto) 0.3 (0.0-0.8) 10^3/u L Baso # (Auto) 0.0 (0.0-0.1) 10^3/u L Nucleated RBC % (a uto) 0 % Nucleated RBCs # 0.0 /100WBC Sodium 142 (136-145) mmol/L Potassium 3.5 (3.5-5.1) mmol/L Chloride 106 (98-107) mmol/L Carbon Dioxide 21 L (22-29) mmol/L Anion Gap 18.5 (5-19) BUN 19 (6-20) mg/dL Creatinine 0.7 (0.7-1.2) mg/dL GFR Calculation 122.5 (90-130) mL/min Glucose 86 (65-115) mg/dL Calculated Osmolal ity 296 H (285-295) mOsm/k g Calcium 8.0 L (8.5-10.5) mg/dL Total Bilirubin 0.4 (0.15-1.2) mg/dL AST 27 (0-40) U/L ALT 20 (0-41) U/L Alkaline Phosphata se 115 (40-130) IU/L Total Protein 7.0 (6.6-8.7) g/dL Albumin 3.9 (3.5-5.2) g/dL Globulin 3.1 (1.3-4.6) g/dL Salicylates < 0.3 L (3-10) mg/dL Acetaminophen < 5.0 L (10-30) ug/mL Ethyl Alcohol 325 H* (0-10) mg/dL Discharge Plan Discharge Patient Disposition: Home Clinical Impression: Alcohol use disorder, Alcohol intoxication Condition: Stable Prescriptions: No Action Vitamin B-1 (mononitrate) 100 mg Tablet 100 mg PO DAILY Qty: 30 RF: 0 Latuda 20 mg Tablet 20 mg PO 1700 Qty: 30 RF: 0 fluoxetine 20 mg capsule 20 mg PO DAILY RF: 0 Discharge Orders: Discharge ED (Routine); Ordered 11/14/20 Ordered By: Cruzito Morocho Discharge Diet: Usual diet Patient Instructions: Opioid Safety Activity Restrictions/Additional Instructions: Stop drinking alcohol. Recommend you follow-up with substance abuse treatment such as [facility] here in [place]. Sign Out Sign Out Data: Patient Sign Out occurred on 11/14/20 at 05:58. Patient's care was discussed, and care was transferred from to Cruzito Morocho DO. Coding Level of Care Code ED Turkey Cleaner for Chg Fwd Exam Comprehensive Documented by User: Cruzito Morocho DO 11/15/20 06:18 HPI - Psych General: Chief Complaint: Psychiatric Symptoms Stated Complaint: SI/ETOH Time Seen by Provider: 11/14/20 00:33 [facility] ED PFSH: Medical History Adjustment disorder with mixed disturbance of emotions and conduct Alcohol use disorder -Has known history of alcohol abuse&DT Bipolar 1 disorder, manic, mild Depressive disorder, not elsewhere classified Methamphetamine abuse -UDS positive for amphetamines/THC Psychiatric care Surgical History H/O hernia repair History of appendectomy Family History Other Alcoholism /alcohol abuse Social History Smoking and tobacco status: unknown if ever smoked Alcohol intake: current Current gender identity: Male Course Vital Signs: Vital signs: Vital Signs Temperature 98.9 F 11/14/20 09:55 Pulse Rate 86 11/14/20 09:55 Respiratory Rate 18 11/14/20 09:55 Blood Pressure 97/54 11/14/20 09:55 Pulse Oximetry 98 11/14/20 09:55 MDM - Psych MDM Narrative: Medical decision making narrative: Care assumed from Dr. Berry at change of shift Dr. Berry has seen and evaluated the patient. We are waiting on psychiatric consult and evaluation. Later in the morning Dr. Yao seen the patient he advises the patient is able to leave does not need psychiatric inpatient care. Patient is up and ambulatory discharged home. Lab Data: Labs: Lab Results 11/14/20 11/14/20 Range/Units 01:00 01:00 WBC 9.3 (4.0-10.0) 10^3/ uL RBC 3.51 L (4.1-5.3) 10^6/u L Hgb 13.1 (11.7-16.6) g/dL Hct 38.3 L (42.0-52.0) % MCV 109.1 H (80-94) fL MCH 37.3 H (28.0-34.0) pg MCHC 34.2 (30.0-36.0) g/dL RDW 12.3 (12.1-15.1) % Plt Count 398 (130-400) 10^3/c mm MPV 8.9 (7.4-10.4) fL Neut % (Auto) 69.1 % Lymph % (Auto) 17.2 % Dane % (Auto) 10.3 % Eos % (Auto) 2.7 % Baso % (Auto) 0.3 % Neut # (Auto) 6.40 (1.8-7.7) 10^3/u L Lymph # (Auto) 1.6 (0.8-4.8) 10^3/u L Dane # (Auto) 1.0 H (0.2-0.9) 10^3/u L Eos # (Auto) 0.3 (0.0-0.8) 10^3/u L Baso # (Auto) 0.0 (0.0-0.1) 10^3/u L Nucleated RBC % (a uto) 0 % Nucleated RBCs # 0.0 /100WBC Sodium 142 (136-145) mmol/L Potassium 3.5 (3.5-5.1) mmol/L Chloride 106 (98-107) mmol/L Carbon Dioxide 21 L (22-29) mmol/L Anion Gap 18.5 (5-19) BUN 19 (6-20) mg/dL Creatinine 0.7 (0.7-1.2) mg/dL GFR Calculation 122.5 (90-130) mL/min Glucose 86 (65-115) mg/dL Calculated Osmolal ity 296 H (285-295) mOsm/k g Calcium 8.0 L (8.5-10.5) mg/dL Total Bilirubin 0.4 (0.15-1.2) mg/dL AST 27 (0-40) U/L ALT 20 (0-41) U/L Alkaline Phosphata se 115 (40-130) IU/L Total Protein 7.0 (6.6-8.7) g/dL Albumin 3.9 (3.5-5.2) g/dL Globulin 3.1 (1.3-4.6) g/dL Salicylates < 0.3 L (3-10) mg/dL Acetaminophen < 5.0 L (10-30) ug/mL Ethyl Alcohol 325 H* (0-10) mg/dL Discharge Plan Discharge Patient Disposition: Home Clinical Impression: Alcohol use disorder, Alcohol intoxication Condition: Stable Prescriptions: No Action Vitamin B-1 (mononitrate) 100 mg Tablet 100 mg PO DAILY Qty: 30 RF: 0 Latuda 20 mg Tablet 20 mg PO 1700 Qty: 30 RF: 0 fluoxetine 20 mg capsule 20 mg PO DAILY RF: 0 Discharge Orders: Discharge ED (Routine); Ordered 11/14/20 Ordered By: Cruzito Morocho Discharge Diet: Usual diet Patient Instructions: Opioid Safety Activity Restrictions/Additional Instructions: Stop drinking alcohol. Recommend you follow-up with substance abuse treatment such as [facility] here in [place]. Sign Out Sign Out Data: Patient Sign Out occurred on 11/14/20 at 05:58. Patient's care was discussed, and care was transferred from to Cruzito Morocho DO. Coding Level of Care Code ED Turkey Cleaner for Camila Fwd Exam Comprehensive
[2020-11-14 01:36] LABS: Acetaminophen < 5.0 ug/mL (10-30); Alanine Aminotransferase 20 U/L (0-41); Albumin Level 3.9 g/dL (3.5-5.2); Alcohol Level 325 mg/dL (0-10); Alkaline Phosphatase 115 IU/L (40-130); Anion Gap 18.5 (5-19); Aspartate Amino Transferase 27 U/L (0-40); Blood Urea Nitrogen 19 mg/dL (6-20); Carbon Dioxide 21 mmol/L (22-29); Chloride 106 mmol/L (98-107); Globulin 3.1 g/dL (1.3-4.6); Glomerular Filtration Rate 122.5 mL/min (90-130); Glucose 86 mg/dL (65-115); Osmolality Calculated 296 mOsm/kg (285-295); Potassium 3.5 mmol/L (3.5-5.1); Salicylate < 0.3 mg/dL (3-10); Sodium 142 mmol/L (136-145); Total Bilirubin 0.4 mg/dL (0.15-1.2)
--- NOTE | 2020-11-14 07:22 | PC.NURSE ---
Received report assumed care, no changes noted from report. Resting with lights on. Sitter at doorway.
--- NOTE | 2020-11-14 08:20 | PC.NURSE ---
Resting, no acute distress.
--- NOTE | 2020-11-14 08:21 | PC.NURSE ---
Sitter at door way
--- NOTE | 2020-11-14 09:12 | PM.PSYCN ---
Providers/Reason for Consult Consulting Physican/Specialty*: Agatha Yao DO Reason for Consult*: Alcohol intoxication/homicidal statements while intoxicated Requesting [place]: Dr. Berry/ED Psych Consult HPI History of Present Illness Israel Gordon is a 45 year old male well-known to this interviewer in the emergency department for longstanding alcohol dependence and suicidal and homicidal statements while intoxicated after which she quickly reconstitutes with no mood symptoms and no homicidal or suicidal ideation currently presenting with a blood alcohol level of 325 mg/dL with report of recent homicidal statements while interacting with police. Patient currently denying any homicidal ideation or thoughts about hurting anyone. He also denies any suicidal ideation and denies any depressive symptoms. Currently denying any alcohol withdrawal symptoms. Patient states that he does not know when asked about previous discharge recommendations of seeking substance counseling/treatment as well as behavioral health follow-up. Patient reports not being compliant with his medication as well as mental health follow-up. Psychiatric review of systems is otherwise negative. Review of Systems General: Reports: 10 or more systems reviewed and unremarkable except in HPI and below PFSH NPU PFSH: Medical History Adjustment disorder with mixed disturbance of emotions and conduct Alcohol use disorder -Has known history of alcohol abuse&DT Bipolar 1 disorder, manic, mild Depressive disorder, not elsewhere classified Methamphetamine abuse -UDS positive for amphetamines/THC Psychiatric care Surgical History H/O hernia repair History of appendectomy Family History Other Alcoholism /alcohol abuse Social History Smoking and tobacco status: unknown if ever smoked Alcohol intake: current Current gender identity: Male Other Psychiatric History: Other Psychiatric History: Longstanding interactions mostly with inpatient psychiatry in the context of substance and alcohol intoxication, noncompliance with follow-up Mental Status Exam MSE Comments: Appears stated age, disheveled, unkempt, multiple abrasions scrapes on hands and face, calm, cooperative but requires prompting for interview, fair eye contact Psychomotor activity is somewhat decreased, no agitation Speech is mumbling, poor articulation, not pressured I am okay, constricted affect, not labile Somewhat soporific, oriented to person, place, time, situation Memory and concentration are fair at best per interview Intellectual functioning is average at best based on vocabulary, interview Thought process, linear but brief, no flight of ideas, no looseness of associations Thought content, no delusions, does not appear to be attending to any internal stimuli, no suicidal or homicidal ideation Insight and judgment appear to be fair Vitals/I&O/Wt Last Vital Signs Temp 98.1 F 11/14/20 00:56 Pulse 79 11/14/20 08:00 Resp 18 11/14/20 08:00 BP 99/51 11/14/20 08:00 Pulse Ox 100 11/14/20 08:00 Weight last 48 hrs Weight 77.111 kg A&P Assessment and plan (1) Alcohol use disorder: Status: Acute (2) Methamphetamine abuse: Status: Acute (3) Alcohol intoxication: Status: Acute Qualifiers: Complication of substance-induced condition: uncomplicated Qualified Code(s): F10.920 - Alcohol use, unspecified with intoxication, uncomplicated Additional A&P Information Presented with report of homicidal ideation while interacting with police with alcohol intoxication with blood alcohol level of 325 mg/dL after arrival to emergency department for initial evaluation. Currently denying any suicidal or homicidal ideation. Patient with longstanding history of noncompliance with medication, medication management follow-up as well as repeated recommendations to attend residential or intensive outpatient substance/alcohol treatment. Low to moderate risk of harm to self given no current suicidal or homicidal ideation and no endorsement of any psychiatric symptoms; patient's risk will continue to be elevated given his ongoing use of alcohol with clearly high tolerance with most recent blood alcohol level being 300+ milligrams per deciliter which will likely lead to subsequent episodes in which he may act in a unexpected, impulsive manner. Risk mitigation included psychiatric hospitalization, medication stabilization, recommendation to abstain from the use of substances and alcohol as well as coordination for safe discharge including post discharge mental health care follow-up and substance treatment. Patient communicated his understanding of the need to abstain from the use of substances and alcohol as well as the need for compliance with his medication, medication management and substance counseling/treatment in order to further mitigate his risk of harm to self and others. Inpatient psychiatric hospitalization is not indicated at this time; outpatient or residential substance treatment/counseling is the least restrictive and appropriate level of care at this time once patient is medically stable for discharge from the emergency department. RECOMMEND patient continue his home medications and follow-up with outpatient mental health for medication management Psychiatry will sign off at this time Involuntary Hold Information 96 Hour Hold: 96 Hour Involuntary Admission: No Attestations NPU Medical Necessity Statement*: N/A Time Spent in Patient Care: Greater than 35 minutes (>than 50% of time spent in counselling and/or direct pt care on unit). Coding Level of Care Code Acute Financial Accounting Manager for Camila Alvares Diagnoses Alcohol use disorder Methamphetamine abuse F15.10 Alcohol intoxication F10.920 Complication of substance-induced condition: uncomplicated
== END 2020-11-14 09:59 | disposition home or self-care (01) ==
PROVIDERS: Emergency Medicine; Emergency Provider Family Medicine
DX: F10.129 Alcohol abuse with intoxication, unspecified (principal); Y90.8 Blood alcohol level of 240 mg/100 ml or more
CPT/HCPCS: 73080; 73090; 80053; 80307; 85025; 93971; 96372; 99284; J1630; J2060

== ENCOUNTER 2020-11-14 21:57 | Emergency (ER) | payer SELFPAY ==
[2020-11-14 22:02] VITALS: BP 136/89; PULSE 107; RESP 16; TEMP 37; O2SAT 92; BMI 20.7
--- NOTE | 2020-11-14 22:11 | XRR_ITS ---
PROCEDURE INFORMATION: Exam: XR Left Elbow Exam date and time: 11/14/2020 10:11 PM Age: 45 years old Clinical indication: Injury or trauma; Blunt trauma (contusions or hematomas); Elbow; Injury details: Fall x yesterday. Pain, bruising, and swelling in left shoulder TECHNIQUE: Imaging protocol: XR Left elbow. Views: 1 or 2 views. COMPARISON: CR (UP EXM, ) 11/14/2020 1:39 AM FINDINGS: Bones/joints: No acute fracture or dislocation. Soft tissues: Normal. Other findings: Study limited by nonstandard views. XR/XR elbow LT 2V [id number] IMPRESSION: 1. Study limited by nonstandard views. 2. No acute fracture or dislocation.
--- NOTE | 2020-11-14 22:11 | XRR_ITS ---
PROCEDURE INFORMATION: Exam: XR Left Humerus Exam date and time: 11/14/2020 10:11 PM Age: 45 years old Clinical indication: Injury or trauma; Blunt trauma (contusions or hematomas); Arm, upper; Injury details: Fall x yesterday. Pain, swelling, and bruising in left arm TECHNIQUE: Imaging protocol: XR Left humerus. Views: 2 or more views. COMPARISON: CR (UP EX, ) 11/14/2020 1:39 AM FINDINGS: Bones/joints: Comminuted proximal humeral fracture. No dislocation. Soft tissues: Normal. XR/[place] [id number] IMPRESSION: Comminuted proximal humeral fracture. No dislocation.
--- NOTE | 2020-11-14 22:11 | XRR_ITS ---
PROCEDURE INFORMATION: Exam: XR Left Shoulder Exam date and time: 11/14/2020 10:11 PM Age: 45 years old Clinical indication: Injury or trauma; Blunt trauma (contusions or hematomas); Injury details: Fall x yesterday. Pain, swelling, and bruising in left shoulder TECHNIQUE: Imaging protocol: XR Left shoulder. Views: 2 or more views. COMPARISON: CR (UP EX, ) 11/14/2020 1:39 AM FINDINGS: Bones/joints: Comminuted fracture at the surgical neck of the humerus. No dislocation. Soft tissues: Normal. XR/XR shoulder LT min 2V* [id number] IMPRESSION: Comminuted fracture at the surgical neck of the humerus.
--- NOTE | 2020-11-14 22:15 | W.ED.PSYCH ---
Documented by User: Kyle Pennington MD 11/15/20 11:31 HPI - Psych General: Chief Complaint: Psychiatric Symptoms Stated Complaint: SI/HI Time Seen by Provider: 11/14/20 22:05 History of Present Illness: HPI Narrative: .The patient is a 45-year-old male who comes to the ER complaining of suicidal ideations and hearing things. He says he feels increased paranoia. He admits to being intoxicated and drinking alcohol heavily today. He came to the ER yesterday evening for the same thing but was being aggressive that he needed Haldol and Ativan was cleared by psych early this morning. He also complains of left arm and shoulder pain and has some bruising there where he says his arm got fractured during an arrest recently. He says he has no follow-up. MD complaint: suicidal ideation and feels depressed Associated psychiatric symptoms: depression, suicidal ideation and auditory hallucinations Associated symptoms: Deny depression If self harm: admits thoughts of self harm Review of Systems General: Reports: 10 or more systems reviewed and unremarkable except in HPI and below Const: Denies: fatigue Eyes: Denies: change in vision, blurry vision or eye redness ENMT: Denies: throat pain, swelling of lips/tongue, ear or mastoid pain or nasal congestion Card: Denies: chest pain, palpitations, irregular heart rhythm, edema, dyspnea on exertion or orthopnea Resp: Denies: dyspnea, productive cough or non-productive cough GI: Denies: abdominal pain, diarrhea or GI cramping : Denies: flank pain, urinary frequency or urinary urgency Musc: Reports: extremity pain and joint pain; Denies: neck pain, back pain, joint redness, limited range of motion or muscle weakness Skin/Breast: Denies: rash, pruritus, erythema, skin pain or skin tenderness Neuro: Denies: headache(s), numbness in extremities, weakness in extremities, sensory changes, difficulty walking, dizziness, confusion or Slurred speech present Psych: Denies: anxiety or depression Endo: Denies: polyuria All/Imm: Denies: urticaria, throat swelling or tongue swelling PFS ED PFSH: Medical History Adjustment disorder with mixed disturbance of emotions and conduct Alcohol use disorder -Has known history of alcohol abuse&DT Bipolar 1 disorder, manic, mild Depressive disorder, not elsewhere classified Methamphetamine abuse -UDS positive for amphetamines/THC Psychiatric care Surgical History H/O hernia repair History of appendectomy Family History Other Alcoholism /alcohol abuse Social History Smoking and tobacco status: unknown if ever smoked Alcohol intake: current Current gender identity: Male Physical Exam Const: COMMON NORMALS: no acute distress, average body habitus, patient oriented x3, no limitations, healthy appearing, alert and well nourished GENERAL APPEARANCE: cooperative, comfortable and well developed ORIENTATION/CONSCIOUSNESS: Yes awake, Yes oriented to person, Yes oriented to place and Yes oriented to time HENMT: COMMON NORMALS: normocephalic, external ears normal and Normal external nose present HEAD & SCALP: normal to inspection and normocephalic NOSE: Normal external nose present EXTERNAL EAR: Yes external ears normal MOUTH: Normal oral and palatal mucosa present THROAT: posterior oropharynx normal Eye: COMMON NORMALS: Equal, round and reactive pupils present and EOMs intact bilaterally GENERAL EYE: appearance normal, both eyes and all related structures PUPIL: Yes Equal, round and reactive pupils present Neck/C-Spine: COMMON NORMALS: full ROM, no lymphadenopathy, no meningeal signs and no JVD GENERAL: Yes normal visual inspection Lymph: LYMPHATIC: no lymphadenopathy noted Chest: COMMONS NORMALS: normal inspection of the chest and normal palpation of entire chest wall Resp: COMMON NORMALS: normal respiratory effort, No retractions, No use of accessory muscles, clear to auscultation bilaterally and percussion normal EFFORT & INSPECTION: Yes able to speak in complete sentences AUSCULTATION: clear to auscultation bilaterally PERCUSSION: percussion normal Cardio: COMMON NORMALS: no JVD, regular rate, regular rhythm, S1 normal heart sound present, S2 normal heart sound present and Peripheral pulses 2+ throughout RATE: regular rate RHYTHM: regular rhythm HEART SOUNDS: S1 normal heart sound present and S2 normal heart sound present PERIPHERAL PULSES: Peripheral pulses 2+ throughout GI: COMMON NORMALS: Normal to inspection, nondistended, normoactive bowel sounds present, Soft to palpation, non-tender and no masses INSPECTION: Yes normal to inspection PALPATION: Yes Soft to palpation : COMMON NORMALS: Yes no CVA tenderness BLADDER/KIDNEY EXAM: Yes no CVA tenderness Back/Pelvis: COMMON NORMALS: no CVA tenderness, thoracic and lumbar spine normal to inspection, no thoracic nor lumbar tenderness and thoraco-lumbar ROM normal Extremity: COMMON NORMALS: normal to inspection, full ROM, capillary refill normal, no joint enlargement and no pedal edema NARRATIVE EXTREMITY EXAM: Bruising to left humerus and proximally to shoulder. He is wearing a sling. Tenderness there. Neurovascularly intact distal to injury. GENERAL: Yes normal exam except as noted Neuro: COMMON NORMALS: patient oriented x3, CN's II-XII intact bilaterally, moves all extremities, no focal motor deficits, no sensory deficits noted and gait normal SENSORIUM/ORIENTATION: Yes alert, Yes oriented to person, Yes oriented to place and Yes oriented to time MENINGEAL SIGNS: Yes no meningeal signs Psych: COMMON NORMALS: mental status grossly normal, Normal thought process present, cooperative, normal affect and speech normal APPEARANCE: Yes unkempt ATTITUDE: Yes calm SPEECH: Yes normal speech MOOD & AFFECT: Yes depressed mood THOUGHT PROCESS: Normal thought process present THOUGHT CONTENT: Yes Suicidality present, No Homicidality present and Yes Hallucination(s) present Skin: COMMON NORMALS: no rashes or lesions noted GENERAL SKIN EXAM: no rashes or lesions noted Course Vital Signs: Vital signs: Vital Signs Temperature 98.1 F 11/15/20 06:38 Pulse Rate 80 11/15/20 08:15 Respiratory Rate 18 11/15/20 08:15 Blood Pressure 123/93 11/15/20 08:15 Pulse Oximetry 97 11/15/20 08:15 MDM - Psych MDM Narrative: Medical decision making narrative: Gorge: Signed out to Dr. Steele at shift change 11PM. Lab Data: Labs: Lab Results 11/14/20 11/14/20 11/15/20 Range/Units 22:59 22:59 06:15 WBC 7.5 (4.0-10.0) 10^3/ uL RBC 3.25 L (4.1-5.3) 10^6/u L Hgb 12.0 (11.7-16.6) g/dL Hct 35.7 L (42.0-52.0) % MCV 109.8 H (80-94) fL MCH 36.9 H (28.0-34.0) pg MCHC 33.6 (30.0-36.0) g/dL RDW 12.6 (12.1-15.1) % Plt Count 322 (130-400) 10^3/c mm MPV 8.6 (7.4-10.4) fL Neut % (Auto) 73.5 % Lymph % (Auto) 13.8 % [place] % (Auto) 10.1 % Eos % (Auto) 1.9 % Baso % (Auto) 0.3 % Neut # (Auto) 5.55 (1.8-7.7) 10^3/u L Lymph # (Auto) 1.0 (0.8-4.8) 10^3/u L [place] # (Auto) 0.8 (0.2-0.9) 10^3/u L Eos # (Auto) 0.1 (0.0-0.8) 10^3/u L Baso # (Auto) 0.0 (0.0-0.1) 10^3/u L Nucleated RBC % (a uto) 0 % Nucleated RBCs # 0.0 /100WBC Sodium 138 (136-145) mmol/L Potassium 3.6 (3.5-5.1) mmol/L Chloride 102 (98-107) mmol/L Carbon Dioxide 24 (22-29) mmol/L Anion Gap 15.6 (5-19) BUN 17 (6-20) mg/dL Creatinine 0.5 L (0.7-1.2) mg/dL GFR Calculation 180.6 H (90-130) mL/min Glucose 91 (65-115) mg/dL Calculated Osmolal ity 287 (285-295) mOsm/k g Calcium 8.5 (8.5-10.5) mg/dL Total Bilirubin 0.3 (0.15-1.2) mg/dL AST 30 (0-40) U/L ALT 19 (0-41) U/L Alkaline Phosphata se 98 (40-130) IU/L Total Protein 6.3 L (6.6-8.7) g/dL Albumin 3.6 (3.5-5.2) g/dL Globulin 2.7 (1.3-4.6) g/dL Urine Color Yellow (Yellow) Urine Appearance Clear (CLEAR) Urine pH 5 (5-7) Ur Specific Gravit y 1.030 (1.005-1.030) Urine Protein Neg (Negative) Urine Glucose (UA) Norm (Normal) Urine Ketones Negative (Negative) Urine Blood Neg (Negative) Urine Nitrate Negative (Negative) Urine Bilirubin Neg (Negative) Urine Urobilinogen 1 H (Negative) mg/dL Ur Leukocyte Tammy ase Negative (Negative) Salicylates < 0.3 L (3-10) mg/dL Urine Opiates Scre en (Negative) ng/mL Acetaminophen < 5.0 L (10-30) ug/mL Ur Barbiturates Sc reen (Negative) ng/mL Ur Phencyclidine S crn (Negative) ng/mL Ur Amphetamines Sc reen (Negative) ng/mL U Benzodiazepines Scrn (Negative) ng/mL Urine Cocaine Scre en (Negative) ng/mL U Marijuana (THC) Screen (Negative) ng/mL Ethyl Alcohol 99 H (0-10) mg/dL 11/15/ Range/Units 06:15 WBC (4.0-10.0) 10^3/ uL RBC (4.1-5.3) 10^6/u L Hgb (11.7-16.6) g/dL Hct (42.0-52.0) % MCV (80-94) fL MCH (28.0-34.0) pg MCHC (30.0-36.0) g/dL RDW (12.1-15.1) % Plt Count (130-400) 10^3/c mm MPV (7.4-10.4) fL Neut % (Auto) % Lymph % (Auto) % [place] % (Auto) % Eos % (Auto) % Baso % (Auto) % Neut # (Auto) (1.8-7.7) 10^3/u L Lymph # (Auto) (0.8-4.8) 10^3/u L [place] # (Auto) (0.2-0.9) 10^3/u L Eos # (Auto) (0.0-0.8) 10^3/u L Baso # (Auto) (0.0-0.1) 10^3/u L Nucleated RBC % (a uto) % Nucleated RBCs # /100WBC Sodium (136-145) mmol/L Potassium (3.5-5.1) mmol/L Chloride (98-107) mmol/L Carbon Dioxide (22-29) mmol/L Anion Gap (5-19) BUN (6-20) mg/dL Creatinine (0.7-1.2) mg/dL GFR Calculation (90-130) mL/min Glucose (65-115) mg/dL Calculated Osmolal ity (285-295) mOsm/k g Calcium (8.5-10.5) mg/dL Total Bilirubin (0.15-1.2) mg/dL AST (0-40) U/L ALT (0-41) U/L Alkaline Phosphata se (40-130) IU/L Total Protein (6.6-8.7) g/dL Albumin (3.5-5.2) g/dL Globulin (1.3-4.6) g/dL Urine Color (Yellow) Urine Appearance (CLEAR) Urine pH (5-7) Ur Specific Gravit y (1.005-1.030) Urine Protein (Negative) Urine Glucose (UA) (Normal) Urine Ketones (Negative) Urine Blood (Negative) Urine Nitrate (Negative) Urine Bilirubin (Negative) Urine Urobilinogen (Negative) mg/dL Ur Leukocyte Tammy ase (Negative) Salicylates (3-10) mg/dL Urine Opiates Scre en Positive H (Negative) ng/mL Acetaminophen (10-30) ug/mL Ur Barbiturates Sc reen Negative (Negative) ng/mL Ur Phencyclidine S crn Negative (Negative) ng/mL Ur Amphetamines Sc reen Negative (Negative) ng/mL U Benzodiazepines Scrn Positive H (Negative) ng/mL Urine Cocaine Scre en Negative (Negative) ng/mL U Marijuana (THC) Screen Negative (Negative) ng/mL Ethyl Alcohol (0-10) mg/dL Discharge Plan Discharge Patient Disposition: Home Clinical Impression: Suicidal ideation, Left humeral fracture Alcohol intoxication Qualifiers: Complication of substance-induced condition: uncomplicated Qualified Code(s): F10.920 - Alcohol use, unspecified with intoxication, uncomplicated Condition: Stable Prescriptions: New hydrocodone-acetaminophen 5-325 mg tablet 1 tab PO Q6H PRN (Reason: pain) Qty: 12 RF: 0 No Action Vitamin B-1 (mononitrate) 100 mg Tablet 100 mg PO DAILY Qty: 30 RF: 0 Latuda 20 mg Tablet 20 mg PO 1700 Qty: 30 RF: 0 fluoxetine 20 mg capsule 20 mg PO DAILY RF: 0 Discharge Orders: Discharge ED (Routine); Ordered 11/15/20 Ordered By: Cruzito Morocho Discharge Diet: Usual diet Discharge Activity: Limit activity as instructed Patient Instructions: Opioid Safety Activity Restrictions/Additional Instructions: No use of the left hand or arm keep in the sling until released by orthopedics. Case management will call to make an appointment for orthopedic follow-up. Strongly recommend you stop use of drugs and alcohol and seek assistance for substance abuse with [facility] or similar organization. Coding Level of Care Code ED Botanical Technical Officer for Chg Fwd Exam Comprehensive Documented by User: Zana Steele MD 11/15/20 05:46 HPI - Psych General: Chief Complaint: Psychiatric Symptoms Stated Complaint: SI/HI Time Seen by Provider: 11/14/20 22:05 PFSH ED PFSH: Medical History Adjustment disorder with mixed disturbance of emotions and conduct Alcohol use disorder -Has known history of alcohol abuse&DT Bipolar 1 disorder, manic, mild Depressive disorder, not elsewhere classified Methamphetamine abuse -UDS positive for amphetamines/THC Psychiatric care Surgical History H/O hernia repair History of appendectomy Family History Other Alcoholism /alcohol abuse Social History Smoking and tobacco status: unknown if ever smoked Alcohol intake: current Current gender identity: Male Course Consultations: Consultation #1: I did discuss at length with Dr. Em psychiatry. Patient was sleeping. Dr. Em states that he will do psychological evaluation upon waking in the morning. Time: 01:45 Vital Signs: Vital signs: Vital Signs Temperature 98.1 F 11/15/20 06:38 Pulse Rate 80 11/15/20 08:15 Respiratory Rate 18 11/15/20 08:15 Blood Pressure 123/93 11/15/20 08:15 Pulse Oximetry 97 11/15/20 08:15 MDM - Psych Lab Data: Labs: Lab Results 11/14/20 11/14/20 11/15/20 Range/Units 22:59 22:59 06:15 WBC 7.5 (4.0-10.0) 10^3/ uL RBC 3.25 L (4.1-5.3) 10^6/u L Hgb 12.0 (11.7-16.6) g/dL Hct 35.7 L (42.0-52.0) % MCV 109.8 H (80-94) fL MCH 36.9 H (28.0-34.0) pg MCHC 33.6 (30.0-36.0) g/dL RDW 12.6 (12.1-15.1) % Plt Count 322 (130-400) 10^3/c mm MPV 8.6 (7.4-10.4) fL Neut % (Auto) 73.5 % Lymph % (Auto) 13.8 % [place] % (Auto) 10.1 % Eos % (Auto) 1.9 % Baso % (Auto) 0.3 % Neut # (Auto) 5.55 (1.8-7.7) 10^3/u L Lymph # (Auto) 1.0 (0.8-4.8) 10^3/u L [place] # (Auto) 0.8 (0.2-0.9) 10^3/u L Eos # (Auto) 0.1 (0.0-0.8) 10^3/u L Baso # (Auto) 0.0 (0.0-0.1) 10^3/u L Nucleated RBC % (a uto) 0 % Nucleated RBCs # 0.0 /100WBC Sodium 138 (136-145) mmol/L Potassium 3.6 (3.5-5.1) mmol/L Chloride 102 (98-107) mmol/L Carbon Dioxide 24 (22-29) mmol/L Anion Gap 15.6 (5-19) BUN 17 (6-20) mg/dL Creatinine 0.5 L (0.7-1.2) mg/dL GFR Calculation 180.6 H (90-130) mL/min Glucose 91 (65-115) mg/dL Calculated Osmolal ity 287 (285-295) mOsm/k g Calcium 8.5 (8.5-10.5) mg/dL Total Bilirubin 0.3 (0.15-1.2) mg/dL AST 30 (0-40) U/L ALT 19 (0-41) U/L Alkaline Phosphata se 98 (40-130) IU/L Total Protein 6.3 L (6.6-8.7) g/dL Albumin 3.6 (3.5-5.2) g/dL Globulin 2.7 (1.3-4.6) g/dL Urine Color Yellow (Yellow) Urine Appearance Clear (CLEAR) Urine pH 5 (5-7) Ur Specific Gravit y 1.030 (1.005-1.030) Urine Protein Neg (Negative) Urine Glucose (UA) Norm (Normal) Urine Ketones Negative (Negative) Urine Blood Neg (Negative) Urine Nitrate Negative (Negative) Urine Bilirubin Neg (Negative) Urine Urobilinogen 1 H (Negative) mg/dL Ur Leukocyte Tammy ase Negative (Negative) Salicylates < 0.3 L (3-10) mg/dL Urine Opiates Scre en (Negative) ng/mL Acetaminophen < 5.0 L (10-30) ug/mL Ur Barbiturates Sc reen (Negative) ng/mL Ur Phencyclidine S crn (Negative) ng/mL Ur Amphetamines Sc reen (Negative) ng/mL U Benzodiazepines Scrn (Negative) ng/mL Urine Cocaine Scre en (Negative) ng/mL U Marijuana (THC) Screen (Negative) ng/mL Ethyl Alcohol 99 H (0-10) mg/dL 15 Range/Units 06:15 WBC (4.0-10.0) 10^3/ uL RBC (4.1-5.3) 10^6/u L Hgb (11.7-16.6) g/dL Hct (42.0-52.0) % MCV (80-94) fL MCH (28.0-34.0) pg MCHC (30.0-36.0) g/dL RDW (12.1-15.1) % Plt Count (130-400) 10^3/c mm MPV (7.4-10.4) fL Neut % (Auto) % Lymph % (Auto) % [place] % (Auto) % Eos % (Auto) % Baso % (Auto) % Neut # (Auto) (1.8-7.7) 10^3/u L Lymph # (Auto) (0.8-4.8) 10^3/u L [place] # (Auto) (0.2-0.9) 10^3/u L Eos # (Auto) (0.0-0.8) 10^3/u L Baso # (Auto) (0.0-0.1) 10^3/u L Nucleated RBC % (a uto) % Nucleated RBCs # /100WBC Sodium (136-145) mmol/L Potassium (3.5-5.1) mmol/L Chloride (98-107) mmol/L Carbon Dioxide (22-29) mmol/L Anion Gap (5-19) BUN (6-20) mg/dL Creatinine (0.7-1.2) mg/dL GFR Calculation (90-130) mL/min Glucose (65-115) mg/dL Calculated Osmolal ity (285-295) mOsm/k g Calcium (8.5-10.5) mg/dL Total Bilirubin (0.15-1.2) mg/dL AST (0-40) U/L ALT (0-41) U/L Alkaline Phosphata se (40-130) IU/L Total Protein (6.6-8.7) g/dL Albumin (3.5-5.2) g/dL Globulin (1.3-4.6) g/dL Urine Color (Yellow) Urine Appearance (CLEAR) Urine pH (5-7) Ur Specific Gravit y (1.005-1.030) Urine Protein (Negative) Urine Glucose (UA) (Normal) Urine Ketones (Negative) Urine Blood (Negative) Urine Nitrate (Negative) Urine Bilirubin (Negative) Urine Urobilinogen (Negative) mg/dL Ur Leukocyte Tammy ase (Negative) Salicylates (3-10) mg/dL Urine Opiates Scre en Positive H (Negative) ng/mL Acetaminophen (10-30) ug/mL Ur Barbiturates Sc reen Negative (Negative) ng/mL Ur Phencyclidine S crn Negative (Negative) ng/mL Ur Amphetamines Sc reen Negative (Negative) ng/mL U Benzodiazepines Scrn Positive H (Negative) ng/mL Urine Cocaine Scre en Negative (Negative) ng/mL U Marijuana (THC) Screen Negative (Negative) ng/mL Ethyl Alcohol (0-10) mg/dL Discharge Plan Discharge Patient Disposition: Home Clinical Impression: Suicidal ideation, Left humeral fracture Alcohol intoxication Qualifiers: Complication of substance-induced condition: uncomplicated Qualified Code(s): F10.920 - Alcohol use, unspecified with intoxication, uncomplicated Condition: Stable Prescriptions: New hydrocodone-acetaminophen 5-325 mg tablet 1 tab PO Q6H PRN (Reason: pain) Qty: 12 RF: 0 No Action Vitamin B-1 (mononitrate) 100 mg Tablet 100 mg PO DAILY Qty: 30 RF: 0 Latuda 20 mg Tablet 20 mg PO 1700 Qty: 30 RF: 0 fluoxetine 20 mg capsule 20 mg PO DAILY RF: 0 Discharge Orders: Discharge ED (Routine); Ordered 11/15/20 Ordered By: Cruzito Morocho Discharge Diet: Usual diet Discharge Activity: Limit activity as instructed Patient Instructions: Opioid Safety Activity Restrictions/Additional Instructions: No use of the left hand or arm keep in the sling until released by orthopedics. Case management will call to make an appointment for orthopedic follow-up. Strongly recommend you stop use of drugs and alcohol and seek assistance for substance abuse with [facility] or similar organization. Coding Level of Care Code ED Botanical Technical Officer for Chg Fwd Exam Comprehensive Documented by User: Cruzito Morocho DO 11/15/20 08:18 HPI - Psych General: Chief Complaint: Psychiatric Symptoms Stated Complaint: SI/HI Time Seen by Provider: 11/14/20 22:05 PFSH ED PFSH: Medical History Adjustment disorder with mixed disturbance of emotions and conduct Alcohol use disorder -Has known history of alcohol abuse&DT Bipolar 1 disorder, manic, mild Depressive disorder, not elsewhere classified Methamphetamine abuse -UDS positive for amphetamines/THC Psychiatric care Surgical History H/O hernia repair History of appendectomy Family History Other Alcoholism /alcohol abuse Social History Smoking and tobacco status: unknown if ever smoked Alcohol intake: current Current gender identity: Male Course Vital Signs: Vital signs: Vital Signs Temperature 98.1 F 11/15/20 06:38 Pulse Rate 80 11/15/20 08:15 Respiratory Rate 18 11/15/20 08:15 Blood Pressure 123/93 11/15/20 08:15 Pulse Oximetry 97 11/15/20 08:15 MDM - Psych MDM Narrative: Medical decision making narrative: Care assumed at change of shift initially arrived on shift patient is still intoxicated and under the influence from the hot Ativan and Haldol he received earlier over time he became more awake and conversant. Called and talked to Dr. Yao at 0 750 he will come to evaluate the patient. Unfortunately the patient continues to return to the emergency room intoxicated making suicidal ideation threats when he joel up he retracts and is discharged. Psychiatry frequently clears him as per protocol. 0 [phone]. Psychiatry is seen the patient and released him for discharge. Will make follow-up arrangements with orthopedics for the left proximal humerus fracture he should leave it in the sling until then. Recommend he stop use of drugs and alcohol. Encourage him to follow-up with outpatient treatment such as at [facility]. Lab Data: Labs: Lab Results 11/14/20 11/14/20 11/15/20 Range/Units 22:59 22:59 06:15 WBC 7.5 (4.0-10.0) 10^3/ uL RBC 3.25 L (4.1-5.3) 10^6/u L Hgb 12.0 (11.7-16.6) g/dL Hct 35.7 L (42.0-52.0) % MCV 109.8 H (80-94) fL MCH 36.9 H (28.0-34.0) pg MCHC 33.6 (30.0-36.0) g/dL RDW 12.6 (12.1-15.1) % Plt Count 322 (130-400) 10^3/c mm MPV 8.6 (7.4-10.4) fL Neut % (Auto) 73.5 % Lymph % (Auto) 13.8 % [place] % (Auto) 10.1 % Eos % (Auto) 1.9 % Baso % (Auto) 0.3 % Neut # (Auto) 5.55 (1.8-7.7) 10^3/u L Lymph # (Auto) 1.0 (0.8-4.8) 10^3/u L [place] # (Auto) 0.8 (0.2-0.9) 10^3/u L Eos # (Auto) 0.1 (0.0-0.8) 10^3/u L Baso # (Auto) 0.0 (0.0-0.1) 10^3/u L Nucleated RBC % (a uto) 0 % Nucleated RBCs # 0.0 /100WBC Sodium 138 (136-145) mmol/L Potassium 3.6 (3.5-5.1) mmol/L Chloride 102 (98-107) mmol/L Carbon Dioxide 24 (22-29) mmol/L Anion Gap 15.6 (5-19) BUN 17 (6-20) mg/dL Creatinine 0.5 L (0.7-1.2) mg/dL GFR Calculation 180.6 H (90-130) mL/min Glucose 91 (65-115) mg/dL Calculated Osmolal ity 287 (285-295) mOsm/k g Calcium 8.5 (8.5-10.5) mg/dL Total Bilirubin 0.3 (0.15-1.2) mg/dL AST 30 (0-40) U/L ALT 19 (0-41) U/L Alkaline Phosphata se 98 (40-130) IU/L Total Protein 6.3 L (6.6-8.7) g/dL Albumin 3.6 (3.5-5.2) g/dL Globulin 2.7 (1.3-4.6) g/dL Urine Color Yellow (Yellow) Urine Appearance Clear (CLEAR) Urine pH 5 (5-7) Ur Specific Gravit y 1.030 (1.005-1.030) Urine Protein Neg (Negative) Urine Glucose (UA) Norm (Normal) Urine Ketones Negative (Negative) Urine Blood Neg (Negative) Urine Nitrate Negative (Negative) Urine Bilirubin Neg (Negative) Urine Urobilinogen 1 H (Negative) mg/dL Ur Leukocyte Tammy ase Negative (Negative) Salicylates < 0.3 L (3-10) mg/dL Urine Opiates Scre en (Negative) ng/mL Acetaminophen < 5.0 L (10-30) ug/mL Ur Barbiturates Sc reen (Negative) ng/mL Ur Phencyclidine S crn (Negative) ng/mL Ur Amphetamines Sc reen (Negative) ng/mL U Benzodiazepines Scrn (Negative) ng/mL Urine Cocaine Scre en (Negative) ng/mL U Marijuana (THC) Screen (Negative) ng/mL Ethyl Alcohol 99 H (0-10) mg/dL 11/15/ Range/Units 06:15 WBC (4.0-10.0) 10^3/ uL RBC (4.1-5.3) 10^6/u L Hgb (11.7-16.6) g/dL Hct (42.0-52.0) % MCV (80-94) fL MCH (28.0-34.0) pg MCHC (30.0-36.0) g/dL RDW (12.1-15.1) % Plt Count (130-400) 10^3/c mm MPV (7.4-10.4) fL Neut % (Auto) % Lymph % (Auto) % [place] % (Auto) % Eos % (Auto) % Baso % (Auto) % Neut # (Auto) (1.8-7.7) 10^3/u L Lymph # (Auto) (0.8-4.8) 10^3/u L [place] # (Auto) (0.2-0.9) 10^3/u L Eos # (Auto) (0.0-0.8) 10^3/u L Baso # (Auto) (0.0-0.1) 10^3/u L Nucleated RBC % (a uto) % Nucleated RBCs # /100WBC Sodium (136-145) mmol/L Potassium (3.5-5.1) mmol/L Chloride (98-107) mmol/L Carbon Dioxide (22-29) mmol/L Anion Gap (5-19) BUN (6-20) mg/dL Creatinine (0.7-1.2) mg/dL GFR Calculation (90-130) mL/min Glucose (65-115) mg/dL Calculated Osmolal ity (285-295) mOsm/k g Calcium (8.5-10.5) mg/dL Total Bilirubin (0.15-1.2) mg/dL AST (0-40) U/L ALT (0-41) U/L Alkaline Phosphata se (40-130) IU/L Total Protein (6.6-8.7) g/dL Albumin (3.5-5.2) g/dL Globulin (1.3-4.6) g/dL Urine Color (Yellow) Urine Appearance (CLEAR) Urine pH (5-7) Ur Specific Gravit y (1.005-1.030) Urine Protein (Negative) Urine Glucose (UA) (Normal) Urine Ketones (Negative) Urine Blood (Negative) Urine Nitrate (Negative) Urine Bilirubin (Negative) Urine Urobilinogen (Negative) mg/dL Ur Leukocyte Tammy ase (Negative) Salicylates (3-10) mg/dL Urine Opiates Scre en Positive H (Negative) ng/mL Acetaminophen (10-30) ug/mL Ur Barbiturates Sc reen Negative (Negative) ng/mL Ur Phencyclidine S crn Negative (Negative) ng/mL Ur Amphetamines Sc reen Negative (Negative) ng/mL U Benzodiazepines Scrn Positive H (Negative) ng/mL Urine Cocaine Scre en Negative (Negative) ng/mL U Marijuana (THC) Screen Negative (Negative) ng/mL Ethyl Alcohol (0-10) mg/dL Discharge Plan Discharge Patient Disposition: Home Clinical Impression: Suicidal ideation, Left humeral fracture Alcohol intoxication Qualifiers: Complication of substance-induced condition: uncomplicated Qualified Code(s): F10.920 - Alcohol use, unspecified with intoxication, uncomplicated Condition: Stable Prescriptions: New hydrocodone-acetaminophen 5-325 mg tablet 1 tab PO Q6H PRN (Reason: pain) Qty: 12 RF: 0 No Action Vitamin B-1 (mononitrate) 100 mg Tablet 100 mg PO DAILY Qty: 30 RF: 0 Latuda 20 mg Tablet 20 mg PO 1700 Qty: 30 RF: 0 fluoxetine 20 mg capsule 20 mg PO DAILY RF: 0 Discharge Orders: Discharge ED (Routine); Ordered 11/15/20 Ordered By: Cruzito Morocho Discharge Diet: Usual diet Discharge Activity: Limit activity as instructed Patient Instructions: Opioid Safety Activity Restrictions/Additional Instructions: No use of the left hand or arm keep in the sling until released by orthopedics. Case management will call to make an appointment for orthopedic follow-up. Strongly recommend you stop use of drugs and alcohol and seek assistance for substance abuse with [facility] [facility] or similar organization. Coding Level of Care Code ED Botanical Technical Officer for Camila Alvares Exam Comprehensive
[2020-11-14] MEDS: acetaminophen 325 mg Tablet 650 MG PO (22:44)
[2020-11-14 23:09] LABS: Basophils % 0.3 %; Eosinophils # 0.1 10^3/uL (0.0-0.8); Eosinophils % 1.9 %; Hematocrit 35.7 % (42.0-52.0); Lymphocytes % 13.8 %; Mean Corpuscular HGB Conc 33.6 g/dL (30.0-36.0); Mean Corpuscular Hemoglobin 36.9 pg (28.0-34.0); Mean Corpuscular Volume 109.8 fL (80-94); Mean Platelet Volume 8.6 fL (7.4-10.4); Monocytes # 0.8 10^3/uL (0.2-0.9); Monocytes % 10.1 %; Neutrophils # 5.55 10^3/uL (1.8-7.7); Neutrophils % 73.5 %; Nucleated Red Blood Cells % 0 %; Platelet Count 322 10^3/cmm (130-400); Red Blood Count 3.25 10^6/uL (4.1-5.3); Red Cell Distribution Width 12.6 % (12.1-15.1); White Blood Count 7.5 10^3/uL (4.0-10.0)
[2020-11-14 23:25] LABS: Alanine Aminotransferase 19 U/L (0-41); Albumin Level 3.6 g/dL (3.5-5.2); Alcohol Level 99 mg/dL (0-10); Alkaline Phosphatase 98 IU/L (40-130); Anion Gap 15.6 (5-19); Aspartate Amino Transferase 30 U/L (0-40); Blood Urea Nitrogen 17 mg/dL (6-20); Calcium 8.5 mg/dL (8.5-10.5); Carbon Dioxide 24 mmol/L (22-29); Chloride 102 mmol/L (98-107); Globulin 2.7 g/dL (1.3-4.6); Glomerular Filtration Rate 180.6 mL/min (90-130); Glucose 91 mg/dL (65-115); Osmolality Calculated 287 mOsm/kg (285-295); Potassium 3.6 mmol/L (3.5-5.1); Sodium 138 mmol/L (136-145); Total Bilirubin 0.3 mg/dL (0.15-1.2); Total Protein 6.3 g/dL (6.6-8.7)
[2020-11-14 23:37] LABS: Acetaminophen < 5.0 ug/mL (10-30); Salicylate < 0.3 mg/dL (3-10)
[2020-11-15] VITALS (7 sets, daily range): BP systolic 119–140; BP diastolic 85–93; PULSE 74–96; RESP 15–18; TEMP 36.7; O2SAT 95–99
[2020-11-15] MEDS: HYDROcodone-acetaminophen 5-325 mg Tablet 1 TAB PO ×2 (03:01→06:36)
--- NOTE | 2020-11-15 03:46 | PC.NURSE ---
Due to left humurus fracture patient placed in hospital gown and paper scrub bottoms.
[2020-11-15 06:17] LABS: Add Urine Microscopic? NO; Charge for UA Resulting for Rev
[2020-11-15 06:20] LABS: Bilirubin Urine Neg (Negative); Blood Urine Neg (Negative); Glucose Urine UA Norm (Normal); Ketones Urine Negative (Negative); Leukocyte Esterase Urine Negative (Negative); Nitrate Urine Negative (Negative); Protein Urine Neg (Negative); Urine Appearance Clear (CLEAR); Urine Color Yellow (Yellow); Urobilinogen Urine 1 mg/dL (Negative); pH Urine 5 (5-7)
[2020-11-15 06:52] LABS: Amphetamines Screen Urine Negative (Negative); Barbiturates Screen Urine Negative (Negative); Benzodiazepines Screen Urine Positive (Negative); Cocaine Screen Urine Negative (Negative); Opiate Screen Urine Positive (Negative); PCP Screen Urine Negative (Negative); THC Screen Urine Negative (Negative)
--- NOTE | 2020-11-15 07:14 | PC.NURSE ---
received report assumed care , no changed noted from report. Pt alert and oriented. Waiting for psych assessment. Requesting a Nicotine patch
--- NOTE | 2020-11-15 08:20 | PM.PSYCN ---
Providers/Reason for Consult Consulting Physican/Specialty*: Agatha Yao DO Reason for Consult*: Alcohol intoxication Requesting Physcian: Dr. Morocho/ED Psych Consult HPI History of Present Illness Israel Gordon is a 45 year old male just discharged from the emergency department yesterday morning for alcohol intoxication as well as belligerent behavior presented to the ER again last evening intoxicated stating that he was hearing voices and wanted to harm himself seeking admission. Patient stating this morning that he did not recall being belligerent the day before and had been drinking heavily throughout the day. He currently denies any alcohol withdrawal symptoms. Patient has no history of complicated withdrawals. Patient had reportedly stated that he had auditory hallucinations and suicidal thoughts at the time of his initial evaluation emergency department but is no longer endorsing any suicidal ideation or thoughts about self-harm and is denying any auditory hallucinations. Per staff report, patient has not been physically agitated over the past 10 hours of observation. He continues to say I do not know when asked about why he has not pursued previous discharge recommendations of seeking substance counseling/treatment as well as behavioral health follow-up. He subsequently states that he has not gone to residential alcohol and substance treatment because his would miss him. Patient reports not being compliant with his medication as well as mental health follow-up. Psychiatric review of systems is otherwise negative. Patient continues to report left arm pain as well as other musculoskeletal complaints. Review of Systems General: Reports: 10 or more systems reviewed and unremarkable except in HPI and below PFSH NPU PFSH: Medical History Adjustment disorder with mixed disturbance of emotions and conduct Alcohol use disorder -Has known history of alcohol abuse&DT Bipolar 1 disorder, manic, mild Depressive disorder, not elsewhere classified Methamphetamine abuse -UDS positive for amphetamines/THC Psychiatric care Surgical History H/O hernia repair History of appendectomy Family History Other Alcoholism /alcohol abuse Social History Smoking and tobacco status: unknown if ever smoked Alcohol intake: current Current gender identity: Male Other Psychiatric History: Other Psychiatric History: No change from consultation less than 24 hours ago Mental Status Exam MSE Comments: Sitting up on a gurney, wearing an arm sling on his left arm, calm, cooperative, good eye contact, disheveled, unkempt Psychomotor activity is neither increased nor decreased, no agitation Speech, normal volume, normal rate, fair articulation, not pressured I hurt, congruent affect, not labile Alert and oriented to person, place, time Memory concentration appear to be intact per interview Thought process, linear, no flight of ideas, no looseness of associations Thought content, no delusions, no hallucinations, no suicidal or homicidal ideation Insight and judgment appear to be fair to intact Vitals/I&O/Wt Last Vital Signs Temp 98.1 F 11/15/20 06:38 Pulse 80 11/15/20 08:15 Resp 18 11/15/20 08:15 BP 123/93 11/15/20 08:15 Pulse Ox 97 11/15/20 08:15 Weight last 48 hrs Weight 65.771 kg A&P Assessment and plan (1) Alcohol intoxication: Status: Acute Qualifiers: Complication of substance-induced condition: uncomplicated Qualified Code(s): F10.920 - Alcohol use, unspecified with intoxication, uncomplicated Additional A&P Information Return to the emergency department with alcohol intoxication less than 24 hours after previous discharge from the emergency department. At the time of initial evaluation was endorsing auditory hallucinations and thoughts about harming himself but currently denying any perceptual disturbances and denying any suicidal thoughts. Discussed at length our previous conversations about pursuing recommended follow-up to include residential substance treatment, medication management follow-up at [facility] as well as therapy targeting more adaptive coping strategies. No changes to previous risk assessment which continues to be low to moderate risk of harm to self given no current suicidal or homicidal ideation and no endorsement of any psychiatric symptoms; patient's risk will continue to be elevated given his ongoing use of alcohol which may lead to unexpected, impulsive manner. Risk mitigation included emergency department observation over 10 hours with resolution of reported symptoms, recommendation to abstain from the use of substances and alcohol as well as coordination for safe discharge including post discharge mental health care follow-up and substance treatment. Patient communicated his understanding of the need to abstain from the use of substances and alcohol as well as the need for compliance with his medication, medication management and substance counseling/treatment in order to further mitigate his risk of harm to self and others. Inpatient psychiatric hospitalization is not indicated at this time; outpatient or residential substance treatment/counseling is the least restrictive and appropriate level of care at this time once patient is medically stable for discharge from the emergency department. RECOMMEND patient continue his home medications and follow-up with outpatient mental health for medication management Psychiatry will sign off at this time Involuntary Hold Information 96 Hour Hold: 96 Hour Involuntary Admission: No Attestations NPU Medical Necessity Statement*: N/A Time Spent in Patient Care: Greater than 35 minutes (>than 50% of time spent in counselling and/or direct pt care on unit). Coding Level of Care Code Acute Tag Machine Operator for Camila Alvares Diagnoses Alcohol intoxication F10.920 Complication of substance-induced condition: uncomplicated
--- NOTE | 2020-11-16 11:08 | DCPLANNER ---
manager trust had message to schedule a follow up appointment for patient with ortho for a left humerus fracture. manager trust called the ortho clinic, spoke with Ciera, gave clinic patients information. manager trust was told that patients information would be printed and reviewed. Clinic will call patient with appointment information.
--- NOTE | 2020-12-12 07:57 | DCPLANNER ---
Patient has a follow up appointment scheduled for Sunday, December 13, 2020 at 10:[address] Briggs at [facility]. Clinic will call patient with appointment information.
--- NOTE | 2020-12-29 07:39 | DCPLANNER ---
Patient had a follow up appointment scheduled for 12.13.20 with ortho - patient did not attend appointment.
== END 2020-11-15 08:19 | disposition home or self-care (01) ==
PROVIDERS: Family Medicine; Emergency Provider Family Medicine
DX: R45.851 Suicidal ideations (principal); F10.920 Alcohol use, unspecified with intoxication, uncomplicated; S42.302A Unspecified fracture of shaft of humerus, left arm, initial encounter for closed fracture; Y35.93XA Legal intervention, means unspecified, suspect injured, initial encounter; Y90.4 Blood alcohol level of 80-99 mg/100 ml
CPT/HCPCS: 73030; 73060; 73070; 80053; 80306; 80307; 81003; 85025; 99284

== ENCOUNTER 2020-11-15 20:43 | Emergency (ER) | payer SELFPAY ==
[2020-11-15 20:44] VITALS: BP 132/81; PULSE 123; RESP 20; TEMP 36.6; O2SAT 96; BMI 24.3
--- NOTE | 2020-11-15 21:19 | ED_ITS ---
HPI - Alcohol General: Chief Complaint: Alcohol Stated Complaint: ARM PAIN/ETOH Time Seen by Provider: 11/15/20 20:49 History of Present Illness: HPI narrative: The patient is a 45-year-old male who comes to the ER by ambulance intoxicated on alcohol. He has come the past 2 nights and just says he needs somewhere to stay. The past 2 nights he said he was suicidal and was cleared. He has had labs today. Admits to drinking alcohol today. He is being rude to multiple staff members. I had Dr. Em speak to him via telehealth visit in the room who cleared him psychiatrically. He was diagnosed with proximal humerus fracture on the left side last night and is supposed to be wearing a splint. MD complaint: alcohol intoxication Chronic alcohol use: Yes Previous visits for alcohol intoxication: Yes Recent trauma: Yes Associated symptoms: Reports no associated symptoms; Deny abdominal pain or depression Review of Systems General: Reports: 10 or more systems reviewed and unremarkable except in HPI and below Const: Denies: fatigue Eyes: Denies: change in vision, blurry vision or eye redness ENMT: Denies: throat pain, swelling of lips/tongue, ear or mastoid pain or nasal congestion Card: Denies: chest pain, palpitations, irregular heart rhythm, edema, dyspnea on exertion or orthopnea Resp: Denies: dyspnea, productive cough or non-productive cough GI: Denies: abdominal pain, diarrhea or GI cramping : Denies: flank pain, urinary frequency or urinary urgency Musc: Denies: neck pain, back pain, extremity pain, joint pain, joint redness, limited range of motion or muscle weakness Skin/Breast: Denies: rash, pruritus, erythema, skin pain or skin tenderness Neuro: Denies: headache(s), numbness in extremities, weakness in extremities, sensory changes, difficulty walking, dizziness, confusion or Slurred speech present Psych: Denies: anxiety or depression Endo: Denies: polyuria All/Imm: Denies: urticaria, throat swelling or tongue swelling PFS ED PFSH: Medical History Adjustment disorder with mixed disturbance of emotions and conduct Alcohol use disorder -Has known history of alcohol abuse&DT Bipolar 1 disorder, manic, mild Depressive disorder, not elsewhere classified Methamphetamine abuse -UDS positive for amphetamines/THC Psychiatric care Surgical History H/O hernia repair History of appendectomy Family History Other Alcoholism /alcohol abuse Social History Smoking and tobacco status: unknown if ever smoked Alcohol intake: current Current gender identity: Male Physical Exam Const: COMMON NORMALS: no acute distress, average body habitus, patient oriented x3, no limitations, healthy appearing, alert and well nourished GENERAL APPEARANCE: cooperative, comfortable, well kempt and well developed ORIENTATION/CONSCIOUSNESS: Yes awake, Yes oriented to person, Yes oriented to place and Yes oriented to time HENMT: COMMON NORMALS: normocephalic, external ears normal and Normal external nose present HEAD & SCALP: normal to inspection and normocephalic NOSE: Normal external nose present EXTERNAL EAR: Yes external ears normal MOUTH: Normal oral and palatal mucosa present THROAT: posterior oropharynx normal Eye: COMMON NORMALS: Equal, round and reactive pupils present and EOMs intact bilaterally GENERAL EYE: appearance normal, both eyes and all related structures PUPIL: Yes Equal, round and reactive pupils present Neck/C-Spine: COMMON NORMALS: full ROM, no lymphadenopathy, no meningeal signs and no JVD GENERAL: Yes normal visual inspection Lymph: LYMPHATIC: no lymphadenopathy noted Chest: COMMONS NORMALS: normal inspection of the chest and normal palpation of entire chest wall Resp: COMMON NORMALS: normal respiratory effort, No retractions, No use of accessory muscles, clear to auscultation bilaterally and percussion normal EFFORT & INSPECTION: Yes able to speak in complete sentences AUSCULTATION: clear to auscultation bilaterally PERCUSSION: percussion normal Cardio: COMMON NORMALS: no JVD, regular rate, regular rhythm, S1 normal heart sound present, S2 normal heart sound present and Peripheral pulses 2+ throughout RATE: regular rate RHYTHM: regular rhythm HEART SOUNDS: S1 normal heart sound present and S2 normal heart sound present PERIPHERAL PULSES: Peripheral pulses 2+ throughout GI: COMMON NORMALS: Normal to inspection, nondistended, normoactive bowel sounds present, Soft to palpation, non-tender and no masses INSPECTION: Yes normal to inspection PALPATION: Yes Soft to palpation : COMMON NORMALS: Yes no CVA tenderness BLADDER/KIDNEY EXAM: Yes no CVA tenderness Back/Pelvis: COMMON NORMALS: no CVA tenderness, thoracic and lumbar spine nor mal to inspection, no thoracic nor lumbar tenderness and thoraco-lumbar ROM normal Extremity: COMMON NORMALS: normal to inspection, full ROM, capillary refill normal, no joint enlargement and no pedal edema NARRATIVE EXTREMITY EXAM: Bruising to left arm. He has a known proximal humerus fracture. GENERAL: Yes normal exam except as noted Neuro: COMMON NORMALS: patient oriented x3, CN's II-XII intact bilaterally, moves all extremities, no focal motor deficits, no sensory deficits noted and gait normal SENSORIUM/ORIENTATION: Yes alert, Yes oriented to person, Yes oriented to place and Yes oriented to time MENINGEAL SIGNS: Yes no meningeal signs Psych: COMMON NORMALS: mental status grossly normal, Normal thought process present, cooperative, normal affect and speech normal APPEARANCE: Yes well kempt ATTITUDE: Yes calm SPEECH: Yes normal speech THOUGHT PROCESS: Normal thought process present Skin: COMMON NORMALS: no rashes or lesions noted GENERAL SKIN EXAM: no rashes or lesions noted Course Vital Signs: Vital signs: Vital Signs Temperature 97.8 F 11/15/20 20:44 Pulse Rate 123 H 11/15/20 20:44 Respiratory Rate 20 H 11/15/20 20:44 Blood Pressure 132/81 11/15/20 20:44 Pulse Oximetry 96 11/15/20 20:44 MDM - Alcohol MDM Narrative: Medical decision making narrative: Patient denied suicidal ideations but was being rude to multiple staff members and the EMS folks. He says he is just looking for a place to stay. Given that he said he was suicidal the past [address] Em see him. He was being rude to him as well. Dr. Em and I spoke afterwards and he cleared him psychiatrically. I walked the patient to the bathroom and when he exited he asked to leave and said he is leaving immediately and not waiting to sign anything. He eloped. Discharge Plan Discharge Patient Disposition: Left Against Medical Advice Clinical Impression: Alcohol intoxication Condition: Stable Prescriptions: No Action Vitamin B-1 (mononitrate) 100 mg Tablet 100 mg PO DAILY Qty: 30 RF: 0 Latuda 20 mg Tablet 20 mg PO 1700 Qty: 30 RF: 0 fluoxetine 20 mg capsule 20 mg PO DAILY RF: 0 hydrocodone-acetaminophen 5-325 mg tablet 1 tab PO Q6H PRN (Reason: pain) Qty: 12 RF: 0 Coding Level of Care Code ED Water Resource Engineering Specialist for Camila Alvares
== END 2020-11-15 21:40 | disposition left against medical advice (07) ==
PROVIDERS: Emergency Provider Family Medicine
DX: F10.129 Alcohol abuse with intoxication, unspecified (principal); Z53.21 Procedure and treatment not carried out due to patient leaving prior to being seen by health care provider
CPT/HCPCS: 99281

== ENCOUNTER → 2021-01-04 11:47 | Outpatient (BNVA) | payer MEDICAID, SELFPAY | PROVIDERS: Visit Provider Orthopaedic Surgery | DX: S42.202A Unspecified fracture of upper end of left humerus, initial encounter for closed fracture (principal); X58.XXXA Exposure to other specified factors, initial encounter | CPT/HCPCS: 73030 ==

== ENCOUNTER 2021-01-27 13:48 | Outpatient (CLI) | payer MEDICAID, SELFPAY ==
--- NOTE | 2021-01-27 13:57 | XR_ITS ---
WS: [id number] LEFT FOOT: 3 VIEW(S) TECHNIQUE: AP, oblique and lateral. HISTORY: M79.672 - Pain in left foot COMPARISON: None available. Acute comminuted fractures involving the proximal second and third metatarsals. Mild displacement of multiple fracture fragments. Suspect avulsion fracture from the lateral proximal first metatarsal. Mi ld widening between the first and second metatarsals. Lisfranc injury should be considered clinically . Diffuse soft tissue edema around the foot. XR/XR foot LT min 3V* [id number] IMPRESSION: 1. Comminuted fractures involving the proximal second and third metatarsals wi th mild displacement. 2. Possible avulsion fracture from the lateral proximal first metatarsal. 3. Lisfranc injury should be considered clinically. Notified CANDICE Barr at 01/27/2021 2:35 PM.
--- NOTE | 2021-01-27 13:57 | XR_ITS ---
WS: [id number] LEFT ANKLE: 3 VIEW(S) TECHNIQUE: AP, oblique(s) and lateral. HISTORY: M79.672 - Pain in left foot COMPARISON: None available. Normal anatomic alignment with no fracture or dislocation. Well-corticated osseous density distal to the fibula is probably from an old fracture. Ankle mortise is normal. No significant degenerative changes at the joint spaces. No soft tissue abnormality. XR/XR ankle LT min 3V* [id number] IMPRESSION: No acute fracture LEFT ankle.
== END 2021-01-27 13:49 | disposition home or self-care (01) ==
LOC: RAD 13:51
PROVIDERS: Visit Provider Emergency Medicine
DX: S92.322A Displaced fracture of second metatarsal bone, left foot, initial encounter for closed fracture (principal); S92.332A Displaced fracture of third metatarsal bone, left foot, initial encounter for closed fracture; X58.XXXA Exposure to other specified factors, initial encounter
CPT/HCPCS: 73610; 73630

== ENCOUNTER → 2021-02-08 13:24 | Outpatient (BNVA) | payer MEDICAID, SELFPAY | PROVIDERS: Visit Provider Orthopaedic Surgery | DX: M79.672 Pain in left foot (principal) | CPT/HCPCS: 73630 ==

== ENCOUNTER 2021-08-21 10:54 | Inpatient (IN) | payer OTHER, MEDICAID, SELFPAY ==
[2021-08-21 10:55] VITALS: BP 136/78; PULSE 106; RESP 18; TEMP 36.8; O2SAT 96; BMI 21.5
--- NOTE | 2021-08-21 11:02 | W.ED.PSYCHS ---
Documented by User: CANDICE Sebastian 08/21/21 12:24 HPI - Psych General: Chief Complaint: Psychiatric Symptoms Stated Complaint: si Time Seen by Provider: 08/21/21 10:54 Source: patient Mode of arrival: EMS Limitations: no limitations History of Present Illness: Patient is a 45-year-old male well-known to our emergency department here for mental health evaluation. Patient was brought by EMS after he walked to the police station and told them he was homicidal and stated he was about to invade another individual's property and stated if he got shot doing it then so be it . He is also reporting feeling very paranoid feeling like other people are out to get him and staring at him. Patient has a longstanding history of substance abuse. He states he has not used drugs in over a month as he has been in prison. He does report drinking alcohol yesterday. Tells me he does currently feel homicidal. He has no specific suicidal thoughts but states if he gets killed in a homicide attempt then that is okay to . complaint: other (homicidal ideation) History of same: Yes Associated psychiatric symptoms: homicidal ideation and other (paranoia ) Associated symptoms: Reports homicidal ideation; Deny auditory hallucinations, visual hallucinations or depression Treatments prior to arrival: none Review of Systems Const: Denies: fever(s) or chills Card: Denies: chest pain, palpitations, lightheadedness or syncope Resp: Denies: dyspnea GI: Denies: abdominal pain, nausea, vomiting or diarrhea Skin/Breast: Denies: rash Neuro: Denies: headache(s) Psych: Reports: anxiety, paranoia and homicidal ideation; Denies: depression, visual hallucinations or auditory hallucinations PFS ED PFSH: Medical History Adjustment disorder with mixed disturbance of emotions and conduct Alcohol use disorder -Has known history of alcohol abuse&DT Bipolar 1 disorder, manic, mild Depressive disorder, not elsewhere classified Methamphetamine abuse -UDS positive for amphetamines/THC Psychiatric care Psychiatric care Surgical History H/O hernia repair History of appendectomy Family History Other Alcoholism /alcohol abuse Social History Quit status (tobacco): has tried quititng Number of times tried to quit tobacco: 4 Second hand smoke exposure: Yes Alcohol intake: current Current gender identity: Male Physical Exam Const: COMMON NORMALS: no acute distress, patient oriented x3, alert and well nourished GENERAL APPEARANCE: cooperative Resp: COMMON NORMALS: normal respiratory effort and clear to auscultation bilaterally AUSCULTATION: clear to auscultation bilaterally Cardio: COMMON NORMALS: regular rate and regular rhythm RATE: regular rate RHYTHM: regular rhythm Neuro: COMMON NORMALS: patient oriented x3 SENSORIUM/ORIENTATION: Yes alert Psych: COMMON NORMALS: mental status grossly normal, cooperative, speech normal and activity/motor behavior normal APPEARANCE: Yes grossly normal ATTITUDE: Yes calm ACTIVITY/MOTOR BEHAVIOR: Yes appropriate eye contact and No psychomotor agitation SPEECH: Yes normal speech MOOD & AFFECT: Yes euthymic mood THOUGHT CONTENT: Yes Homicidality present ATTENTION/CONCENTRATION: Yes attention grossly intact and Yes concentration grossly intact MEMORY/COGNITION: Yes memory grossly intact INSIGHT: Fair insight present (Psych) JUDGEMENT: Fair judgement present (Psych) Course Consultations: Consultation #1: Dr. Grider-accepts to NPU Vital Signs: Vital signs: Vital Signs Temperature 97.5 F L 08/22/21 06:00 Pulse Rate 73 08/22/21 06:00 Respiratory Rate 20 H 08/22/21 06:00 Blood Pressure 103/67 08/22/21 06:00 Pulse Oximetry 97 08/22/21 06:00 [facility] - Psych Medical Decision Making Dr. Grider accepts to NPU. Patient is voluntary with affidavit. Lab Data : 08/21/21 11:09 08/21/21 11:09 Laboratory Results WBC 6.2 10^3/uL (4.0-10.0) 08/21/21 11:09 RBC 4.00 10^6/uL (4.1-5.3) L 08/21/21 11:09 Hgb 14.2 g/dL (11.7-16.6) 08/21/21 11:09 Hct 41.1 % (42.0-52.0) L 08/21/21 11:09 MCV 102.8 fl (80-94) H 08/21/21 11:09 MCH 35.5 pg (28.0-34.0) H 08/21/21 11:09 MCHC 34.5 g/dL (30.0-36.0) 08/21/21 11:09 RDW 13.6 % (12.1-15.1) 08/21/21 11:09 Plt Count 301 10^3/cmm (130-400) 08/21/21 11:09 MPV 8.9 fL (7.4-10.4) 08/21/21 11:09 Neut % (Auto) 59.5 % 08/21/21 11:09 Lymph % (Auto) 31.9 % 08/21/21 11:09 [place] % (Auto) 7.6 % 08/21/21 11:09 Eos % (Auto) 0.5 % 08/21/21 11:09 Baso % (Auto) 0.2 % 08/21/21 11:09 Neut # (Auto) 3.67 10^3/uL (1.8-7.7) 08/21/21 11:09 Lymph # (Auto) 2.0 10^3/uL (0.8-4.8) 08/21/21 11:09 [place] # (Auto) 0.5 10^3/uL (0.2-0.9) 08/21/21 11:09 Eos # (Auto) 0.0 10^3/uL (0.0-0.8) 08/21/21 11:09 Baso # (Auto) 0.0 10^3/uL (0.0-0.1) 08/21/21 11:09 Nucleated RBC % (auto) 0 % 08/21/21 11:09 Nucleated RBCs # 0.0 /100WBC 08/21/21 11:09 Sodium 143 mmol/L (136-145) 08/21/21 11:09 Potassium 4.4 mmol/L (3.5-5.1) 08/21/21 11:09 Chloride 107 mmol/L (98-107) 08/21/21 11:09 Carbon Dioxide 23 mmol/L (22-29) 08/21/21 11:09 Anion Gap 17.4 (5-19) 08/21/21 11:09 BUN 6 mg/dL (6-20) 08/21/21 11:09 Creatinine 0.8 mg/dL (0.7-1.2) 08/21/21 11:09 GFR Calculation 105.0 mL/min (90-130) 08/21/21 11:09 Glucose 91 mg/dL (65-115) 08/21/21 11:09 Calculated Osmolality 293 mOsm/kg (285-295) 08/21/21 11:09 Calcium 9.2 mg/dL (8.5-10.5) 08/21/21 11:09 Total Bilirubin 0.3 mg/dL (0.15-1.2) 08/21/21 11:09 AST 38 U/L (0-40) 08/21/21 11:09 ALT 47 U/L (0-41) H 08/21/21 11:09 Alkaline Phosphatase 78 IU/L (40-130) 08/21/21 11:09 Total Protein 7.7 g/dL (6.6-8.7) 08/21/21 11:09 Albumin 4.7 g/dL (3.5-5.2) 08/21/21 11:09 Globulin 3.0 g/dL (1.3-4.6) 08/21/21 11:09 Salicylates < 0.3 mg/dL (3-10) L 08/21/21 11:09 Acetaminophen < 5.0 ug/mL (10-30) L 08/21/21 11:09 Ethyl Alcohol 122 mg/dL (0-10) H 08/21/21 11:09 Discharge Plan Discharge Patient Disposition: Admitted As Inpatient Admit Provider: Presley Grider Clinical Impression: Homicidal ideation, Alcohol intoxication, Paranoia Condition: Stable Coding Level of Care Code ED Account Receivable Associate for Chg Fwd Exam Expanded Problem Focused Documented by User: Cruzito Morocho DO 08/22/21 07:01 HPI - Psych General: Chief Complaint: Psychiatric Symptoms Stated Complaint: si Time Seen by Provider: 08/21/21 10:54 PFSH ED PFSH: Medical History Adjustment disorder with mixed disturbance of emotions and conduct Alcohol use disorder -Has known history of alcohol abuse&DT Bipolar 1 disorder, manic, mild Depressive disorder, not elsewhere classified Methamphetamine abuse -UDS positive for amphetamines/THC Psychiatric care Psychiatric care Surgical History H/O hernia repair History of appendectomy Family History Other Alcoholism /alcohol abuse Social History Quit status (tobacco): has tried quititng Number of times tried to quit tobacco: 4 Second hand smoke exposure: Yes Alcohol intake: current Current gender identity: Male Course Vital Signs: Vital signs: Vital Signs Temperature 97.5 F L 08/22/21 06:00 Pulse Rate 73 08/22/21 06:00 Respiratory Rate 20 H 08/22/21 06:00 Blood Pressure 103/67 08/22/21 06:00 Pulse Oximetry 97 08/22/21 06:00 MDM - Psych Medical Decision Making Dr. Grider accepts to NPU. Patient is voluntary with affidavit. Chart reviewed and patient discussed with midlevel. Agree with assessment and plan. Patient nonviolent at this time but is expressing suicidal homicidal ideation. Orders written for admission. Patient medically cleared for admission to psychiatric unit. Medical Records I reviewed the patient's medical records. Lab Data I reviewed the patient's lab results. : 08/21/21 11:09 08/21/21 11:09 Laboratory Results WBC 6.2 10^3/uL (4.0-10.0) 08/21/21 11:09 RBC 4.00 10^6/uL (4.1-5.3) L 08/21/21 11:09 Hgb 14.2 g/dL (11.7-16.6) 08/21/21 11:09 Hct 41.1 % (42.0-52.0) L 08/21/21 11:09 MCV 102.8 fl (80-94) H 08/21/21 11:09 MCH 35.5 pg (28.0-34.0) H 08/21/21 11:09 MCHC 34.5 g/dL (30.0-36.0) 08/21/21 11:09 RDW 13.6 % (12.1-15.1) 08/21/21 11:09 Plt Count 301 10^3/cmm (130-400) 08/21/21 11:09 MPV 8.9 fL (7.4-10.4) 08/21/21 11:09 Neut % (Auto) 59.5 % 08/21/21 11:09 Lymph % (Auto) 31.9 % 08/21/21 11:09 [place] % (Auto) 7.6 % 08/21/21 11:09 Eos % (Auto) 0.5 % 08/21/21 11:09 Baso % (Auto) 0.2 % 08/21/21 11:09 Neut # (Auto) 3.67 10^3/uL (1.8-7.7) 08/21/21 11:09 Lymph # (Auto) 2.0 10^3/uL (0.8-4.8) 08/21/21 11:09 [place] # (Auto) 0.5 10^3/uL (0.2-0.9) 08/21/21 11:09 Eos # (Auto) 0.0 10^3/uL (0.0-0.8) 08/21/21 11:09 Baso # (Auto) 0.0 10^3/uL (0.0-0.1) 08/21/21 11:09 Nucleated RBC % (auto) 0 % 08/21/21 11:09 Nucleated RBCs # 0.0 /100WBC 08/21/21 11:09 Sodium 143 mmol/L (136-145) 08/21/21 11:09 Potassium 4.4 mmol/L (3.5-5.1) 08/21/21 11:09 Chloride 107 mmol/L (98-107) 08/21/21 11:09 Carbon Dioxide 23 mmol/L (22-29) 08/21/21 11:09 Anion Gap 17.4 (5-19) 08/21/21 11:09 BUN 6 mg/dL (6-20) 08/21/21 11:09 Creatinine 0.8 mg/dL (0.7-1.2) 08/21/21 11:09 GFR Calculation 105.0 mL/min (90-130) 08/21/21 11:09 Glucose 91 mg/dL (65-115) 08/21/21 11:09 Calculated Osmolality 293 mOsm/kg (285-295) 08/21/21 11:09 Calcium 9.2 mg/dL (8.5-10.5) 08/21/21 11:09 Total Bilirubin 0.3 mg/dL (0.15-1.2) 08/21/21 11:09 AST 38 U/L (0-40) 08/21/21 11:09 ALT 47 U/L (0-41) H 08/21/21 11:09 Alkaline Phosphatase 78 IU/L (40-130) 08/21/21 11:09 Total Protein 7.7 g/dL (6.6-8.7) 08/21/21 11:09 Albumin 4.7 g/dL (3.5-5.2) 08/21/21 11:09 Globulin 3.0 g/dL (1.3-4.6) 08/21/21 11:09 Salicylates < 0.3 mg/dL (3-10) L 08/21/21 11:09 Acetaminophen < 5.0 ug/mL (10-30) L 08/21/21 11:09 Ethyl Alcohol 122 mg/dL (0-10) H 08/21/21 11:09 Discharge Plan Discharge Patient Disposition: Admitted As Inpatient Admit Provider: Presley Grider Clinical Impression: Homicidal ideation, Alcohol intoxication, Paranoia Condition: Stable Coding Level of Care Code ED Account Receivable Associate for Chg Fwd Exam Expanded Problem Focused
[2021-08-21 11:17] LABS: Basophils % 0.2 %; Eosinophils % 0.5 %; Hematocrit 41.1 % (42.0-52.0); Hemoglobin 14.2 g/dL (11.7-16.6); Lymphocytes % 31.9 %; Mean Corpuscular HGB Conc 34.5 g/dL (30.0-36.0); Mean Corpuscular Hemoglobin 35.5 pg (28.0-34.0); Mean Corpuscular Volume 102.8 fl (80-94); Mean Platelet Volume 8.9 fL (7.4-10.4); Monocytes # 0.5 10^3/uL (0.2-0.9); Monocytes % 7.6 %; Neutrophils # 3.67 10^3/uL (1.8-7.7); Neutrophils % 59.5 %; Nucleated Red Blood Cells % 0 %; Platelet Count 301 10^3/cmm (130-400); Red Cell Distribution Width 13.6 % (12.1-15.1); White Blood Count 6.2 10^3/uL (4.0-10.0)
[2021-08-21] MEDS: haloperidol inj 5 mg/mL INJ 1 mL IM (11:19)
[2021-08-21 11:37] VITALS: BP 105/69; PULSE 96; RESP 16; O2SAT 95
[2021-08-21 11:41] LABS: Alanine Aminotransferase 47 U/L (0-41); Albumin Level 4.7 g/dL (3.5-5.2); Alcohol Level 122 mg/dL (0-10); Alkaline Phosphatase 78 IU/L (40-130); Anion Gap 17.4 (5-19); Aspartate Amino Transferase 38 U/L (0-40); Blood Urea Nitrogen 6 mg/dL (6-20); Calcium 9.2 mg/dL (8.5-10.5); Carbon Dioxide 23 mmol/L (22-29); Chloride 107 mmol/L (98-107); Glucose 91 mg/dL (65-115); Osmolality Calculated 293 mOsm/kg (285-295); Potassium 4.4 mmol/L (3.5-5.1); Sodium 143 mmol/L (136-145); Total Bilirubin 0.3 mg/dL (0.15-1.2); Total Protein 7.7 g/dL (6.6-8.7)
[2021-08-21 11:43] LABS: Acetaminophen < 5.0 ug/mL (10-30); Salicylate < 0.3 mg/dL (3-10)
[2021-08-21 13:31] LABS: Amphetamines Screen Urine Negative (Negative); Barbiturates Screen Urine Negative (Negative); Benzodiazepines Screen Urine Negative (Negative); Cocaine Screen Urine Negative (Negative); Opiate Screen Urine Negative (Negative); PCP Screen Urine Negative (Negative); THC Screen Urine Negative (Negative)
[2021-08-21 13:38] VITALS: BP 97/66; PULSE 109; RESP 17; TEMP 36.7; O2SAT 96
[2021-08-21 14:00] VITALS: RESP 17
[2021-08-21 22:00] VITALS: BP 103/67; PULSE 103; RESP 20; TEMP 36.6; O2SAT 96
[2021-08-22 06:00] VITALS: BP 103/67; PULSE 73; RESP 20; TEMP 36.4; O2SAT 97
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
[2021-08-22] MEDS: fluoxetine 20 mg Capsule 80 MG PO (07:59)
[2021-08-22] MEDS: nicotine 21 mg Patch 1 PATCH TRANSDERMA (07:59)
--- NOTE | 2021-08-22 11:10 | NPU.GN ---
[facility] Topic:Positive Coping Skills General Mood of Group: Israel did attend group today. He was social and his hygiene was good. His demeanor was ok.
[2021-08-22 14:00] VITALS: BP 120/78; PULSE 70; RESP 16; TEMP 36.9; O2SAT 98
[2021-08-22] MEDS: quetiapine 100 mg Tablet 200 MG PO (20:29)
[2021-08-22] MEDS: ibuprofen 600 mg Tablet PO (20:41)
[2021-08-22 22:00] VITALS: BP 131/91; PULSE 81; RESP 19; TEMP 36.9; O2SAT 100
--- NOTE | 2021-08-23 03:08 | PC.NURSE ---
2040-rec'd IBU for pain. It was effective.
[2021-08-23 06:00] VITALS: BP 124/79; PULSE 74; RESP 19; TEMP 36.4; O2SAT 98
[2021-08-23] MEDS: quetiapine 100 mg Tablet PO ×2 (06:21→13:02)
[2021-08-23] MEDS: nicotine 2 mg Gum BUCCAL ×5 (06:50→17:01)
[2021-08-23] MEDS: fluoxetine 20 mg Capsule 80 MG PO (09:18)
[2021-08-23] MEDS: acetaminophen 325 mg Tablet 650 MG PO (09:18)
[2021-08-23] MEDS: hyDROXYzine 25 mg Capsule 50 MG PO (09:18)
[2021-08-23] MEDS: blistex lip oint 7 gm Tube 1 APPLIC TOPICAL (09:25)
[2021-08-23] MEDS: calcium carbonate 500 mg Chew Tablet 1000 MG PO ×2 (11:26→18:14)
[2021-08-23] MEDS: pantoprazole DR 40 mg Tablet PO (11:26)
--- NOTE | 2021-08-23 11:29 | NPU.GN ---
[facility] Topic:Positive Thoughts/ Negative Thoughts General Mood of Group: Israel did attend group. He was social with others and his hygiene was good. Israel seems stable.
--- NOTE | 2021-08-23 12:40 | P.NPUPN_ITS ---
Subjective NPU Subjective: He wants something stronger to help with the anxiety. He would prefer Ativan. He has not been prescribed that for some time and told that he needs to talk with his outpatient provider to see if he wants to add that. He took the Prozac 80 mg for the first time today and did not have any side effects from it. Seroquel 100 mg in the morning does not seem strong enough and he wants to try increasing it to 200 mg to help with his anxiety during the day. He again says that he has never had any increased appetite or weight gain from the Seroquel. He wants to try trazodone during the day to help his sleep. Mental Status Exam MSE Comments: This is a 45-year-old male who appears approximately his stated age and is in no acute distress. He has a full guillen and is dressed in hospital scrubs. Grooming is otherwise fairly good. psychomotor activity is normal. Speech is at a regular rate and rhythm, normal volume, good articulation, not pressured. Alert, oriented X3 Attention and concentration appears to be normal. Memory is intact Mood is anxious. Affect is mildly dysphoric. Thought process is logical and goal-directed. Thought content: Denies auditory and visual hallucinations. No delusions or paranoia are noted. No current suicidal ideation, and no homicidal ideation. Fund of knowledge is appears to be average. Insight and judgment appear to be appears to be poor. Impulse control is appears to be poor. Cognition: Patient Appearance: Appears Younger than Age Level of Consciousness: Awake, Alert, Appropriate and Follows Commands Patient Cognition Impaired: No Ability to Follow Directions: Good Patient Orientation (long list): Person, Place, Name, Age, Month and Year Comprehension Ability: No Impairment Hallucination Type: None Delusion Description: Not Present Thought Process: Appropriate and Loose Associations Affect: Affect Description: Appropriate and Anxious Depressive Symptoms: Back Pain, Difficulty Concentrating, Difficulty Sleeping, Difficulty Making Decisions, Hopelessness, Insomnia, Increased Anxiety and Increased Irritability Behavior: Patient Behavior: Appropriate and Cooperative Speech Pattern: Appropriate and Clear Vitals/I&O/Wt Last Vital Signs Temp 97.5 F L 08/23/21 06:00 Pulse 74 08/23/21 06:00 Resp 19 H 08/23/21 06:00 BP 124/79 08/23/21 06:00 Pulse Ox 98 08/23/21 06:00 Data NPU : 08/21/21 11:09 08/21/21 11:09 A&P Assessment and plan (1) Homicidal ideation: Status: Acute (2) Alcohol intoxication: Status: Acute Qualifiers: Complication of substance-induced condition: uncomplicated Qualified Code(s): F10.920 - Alcohol use, unspecified with intoxication, uncomplicated (3) Alcohol use disorder, severe, dependence: Status: Acute (4) Methamphetamine abuse: Status: Acute (5) Anxiety: Status: Acute Plan This is a 45-year-old male with an approximately 30 psychiatric admissions moscoso ving issue with alcohol dependence. He feels like his primary psychiatric problem is anxiety. Plan: 1. Continue current medication. Increase Seroquel to 200 mg every morning and 200 mg at bedtime. Increase Prozac to 80 mg. trazodone 50 mg PRN anxiety. 2. Continue every 15 minute checks for safety. 3. Encourage individual, group and milieu therapies. 4. Encourage sober living treatment after discharge at the highest level of care to which he is willing to commit. 5. We will monitor for safety for himself in the community prior to discharge. Involuntary Hold Information 96 Hour Hold: 96 Hour Involuntary Admission: No Attestations NPU Medical Necessity Statement*: Inpatient hospitalization is medically necessary and the clinically appropriate intervention at this time. We will initiate medications and make changes as indicated. 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
[2021-08-23 14:00] VITALS: BP 130/88; PULSE 92; RESP 17; TEMP 36.6; O2SAT 98
[2021-08-23] MEDS: trazodone 50 mg Tablet PO (18:17)
[2021-08-23] MEDS: ibuprofen 600 mg Tablet PO (18:17)
--- NOTE | 2021-08-23 18:59 | PC.NURSE ---
PRN Medication Patient C/O 6/10 pain in left leg. Ibuprophen 600 mg given as ordered at 181. Also reports anxiety, Trazadone 50 MG given as ordered at 181. Reassessed at 1900 and reports pain in left leg is still a 6/10 and anxiety has moderately improved. Currently on phone conversing in low tone in no obvious distress.
--- NOTE | 2021-08-23 19:07 | PC.NURSE ---
Pain Educated if Ibuprofen does not work in the next 30-45 minutes he can ask next shift for Tylenol for pain. Verbalizes understanding.
[2021-08-23] MEDS: quetiapine 100 mg Tablet 200 MG PO (20:35)
[2021-08-23 21:33] VITALS: BP 114/76; PULSE 86; RESP 18; TEMP 36.6; O2SAT 94
[2021-08-24 06:00] VITALS: BP 109/77; PULSE 89; RESP 19; TEMP 36.8; O2SAT 98
[2021-08-24] MEDS: quetiapine 100 mg Tablet 200 MG PO ×2 (06:00→20:14)
[2021-08-24] MEDS: nicotine 2 mg Gum BUCCAL ×6 (06:28→22:12)
[2021-08-24] MEDS: pantoprazole DR 40 mg Tablet PO (08:27)
[2021-08-24] MEDS: fluoxetine 20 mg Capsule 80 MG PO (08:27)
[2021-08-24] MEDS: ibuprofen 600 mg Tablet PO ×2 (09:23→19:04)
[2021-08-24] MEDS: trazodone 50 mg Tablet PO ×3 (09:23→22:12)
--- NOTE | 2021-08-24 12:04 | NPU.GN ---
[facility] Topic:Whine Barrel Activity General Mood of Group: Israel did attend group today. He was social and his hygiene is good.
[2021-08-24] MEDS: acetaminophen 325 mg Tablet 650 MG PO (13:58)
[2021-08-24] MEDS: OLANZapine 5 mg ODT PO (13:58)
[2021-08-24 14:00] VITALS: BP 123/84; PULSE 82; RESP 16; TEMP 36.5; O2SAT 98
--- NOTE | 2021-08-24 15:37 | W.PM.NPUPNS ---
Subjective NPU Subjective: Patient presents today reporting having recently been released from [facility] times 2 and having the camper that has been described in previous days which is absence electricity hot water and other functionalities to return to. He did not have any great answers for why he was in [facility]. He denied his psychosocial circumstances were the reason why he was here in the hospital. He requested to be started on Neurontin at the highest dose possible reporting that he is being restarted on his medications but cannot explain why he was not still on them. He denies any side effects of medications reports sleeping better. Mental Status Exam MSE Comments: This is a slender but well nourished white male in hospital scrubs with adequate grooming and eye contact. No abnormal movements except for psychomotor retardation.? Cooperative with exam in no acute distress.? Speech was decreased rate and volume.? Mood described as okay, but anxious, affect subdued.? Thought process organized.? Thought content: Patient denied suicidal or homicidal ideation, there are no delusions reported or noted, he denied any auditory visualizations. Attention and concentration were improved and memory was mostly reliable but none were formally tested.? He is alert and oriented x3.? Insight and judgment are impaired, impulse control is limited. Vitals/I&O/Wt Last Vital Signs Temp 98.2 F 08/24/21 06:00 Pulse 89 08/24/21 06:00 Resp 19 H 08/24/21 06:00 BP 109/77 08/24/21 06:00 Pulse Ox 98 08/24/21 06:00 Data NPU : 08/21/21 11:09 08/21/21 11:09 A&P Assessment and plan (1) Alcohol use disorder, severe, dependence: Status: Acute (2) Anxiety: Status: Acute (3) Homicidal ideation: Status: Acute (4) Alcohol intoxication: Status: Acute Qualifiers: Complication of substance-induced condition: uncomplicated Qualified Code(s): F10.920 - Alcohol use, unspecified with intoxication, uncomplicated (5) Paranoia: Status: Acute (6) Methamphetamine abuse: Status: Acute (7) Malingering: Status: Acute Plan This is a 45-year-old male with an approximately 30 psychiatric admissions having issue with alcohol dependence.? He feels like his primary psychiatric problem is anxiety. Plan: 1.? Continue current medication. ? Increaseed Seroquel to 200 mg every morning and 200 mg at bedtime.? Increased Prozac to 80 mg. trazodone 50 mg PRN insomnia. 2.? Continue every 15 minute checks for safety. 3.? Encourage individual, group and milieu therapies. 4.? Encourage sober living treatment after discharge at the highest level of care to which he is willing to commit. Involuntary Hold Information 96 Hour Hold: 96 Hour Involuntary Admission: No Attestations NPU Medical Necessity Statement*: Inpatient hospitalization is medically necessary and the clinically appropriate intervention at this time.? We will monitor medications and make changes as indicated. Coding Level of Care Code Acute Hose Turner for Camila Beckmand Diagnoses Alcohol use disorder, severe, dependence F10.20 Anxiety F41.9 Homicidal ideation R45.850 Alcohol intoxication F10.920 Complication of substance-induced condition: uncomplicated Paranoia F22 Methamphetamine abuse F15.10 Malingering Z76.5
[2021-08-24 20:26] VITALS: BP 131/93; PULSE 76; RESP 15; O2SAT 97
[2021-08-24] MEDS: hyDROXYzine 25 mg Capsule 50 MG PO (22:12)
[2021-08-25 06:00] VITALS: BP 113/77; PULSE 68; RESP 16; TEMP 36.3; O2SAT 97
[2021-08-25] MEDS: quetiapine 100 mg Tablet 200 MG PO (07:52)
[2021-08-25] MEDS: fluoxetine 20 mg Capsule 80 MG PO (07:53)
[2021-08-25] MEDS: pantoprazole DR 40 mg Tablet PO (07:54)
[2021-08-25] MEDS: nicotine 2 mg Gum BUCCAL ×2 (07:54→11:40)
[2021-08-25] MEDS: OLANZapine 5 mg ODT PO (07:58)
[2021-08-25] MEDS: ibuprofen 600 mg Tablet PO (07:58)
[2021-08-25] MEDS: hyDROXYzine 25 mg Capsule 50 MG PO (13:46)
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
[2021-08-25 14:52] VITALS: BP 113/77; PULSE 68; RESP 16; TEMP 36.3; O2SAT 97
[2021-08-25 15:53] VITALS: BP 113/77; PULSE 68; RESP 16; TEMP 36.3; O2SAT 97
== END 2021-08-25 15:50 | disposition home or self-care (01) | DRG 897 ==
LOC: ER 12:46 → NP 19:54
PROVIDERS: Physician Assistant; Admitting Provider Psychiatry & Neurology Psychiatry; Emergency Provider Family Medicine; Visit Provider Psychiatry & Neurology Psychiatry
DX: F10.20 Alcohol dependence, uncomplicated (principal); F41.9 Anxiety disorder, unspecified; R45.850 Homicidal ideations; F22 Delusional disorders; F15.10 Other stimulant abuse, uncomplicated; Z76.5 Malingerer [conscious simulation]; F17.210 Nicotine dependence, cigarettes, uncomplicated
CPT/HCPCS: 80053; 80306; 80307; 85025; 96372; 97150; 97165; 99285; J1630

== ENCOUNTER 2021-08-29 23:48 | Emergency (ER) | payer MEDICAID, SELFPAY ==
[2021-08-29 23:50] VITALS: BP 137/88; PULSE 124; RESP 17; TEMP 37; O2SAT 95; BMI 22.3
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
[2021-08-29] MEDS: LORazepam 1 mg Tablet PO (23:57)
[2021-08-30 03:17] VITALS: BP 94/55; PULSE 111; RESP 16; O2SAT 94
== END 2021-08-30 03:24 | disposition home or self-care (01) ==
PROVIDERS: Emergency Provider Emergency Medicine
DX: F41.9 Anxiety disorder, unspecified (principal); F10.229 Alcohol dependence with intoxication, unspecified; F31.9 Bipolar disorder, unspecified; F17.200 Nicotine dependence, unspecified, uncomplicated
CPT/HCPCS: 99283

== ENCOUNTER 2021-09-13 23:09 | Inpatient (IN) | payer MEDICAID, SELFPAY ==
[2021-09-13 23:17] VITALS: BP 142/81; PULSE 96; RESP 18; TEMP 36.5; O2SAT 94
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
[2021-09-13 23:56] LABS: Amphetamines Screen Urine Negative (Negative); Barbiturates Screen Urine Negative (Negative); Benzodiazepines Screen Urine Positive (Negative); Cocaine Screen Urine Negative (Negative); Opiate Screen Urine Negative (Negative); PCP Screen Urine Negative (Negative); THC Screen Urine Negative (Negative)
[2021-09-14] VITALS (18 sets, daily range): BP systolic 95–136; BP diastolic 60–84; PULSE 74–99; RESP 16–26; TEMP 36.5–37.1; O2SAT 91–97; BMI 20.8
[2021-09-14] MEDS: LORazepam 2 mg/mL INJ 1 mL 1 MG IVP (00:05)
[2021-09-14] MEDS: morphine 4 mg/mL SDV 1 mL IVP ×2 (00:05→01:59)
[2021-09-14 00:28] LABS: Basophils % 0.3 %; Eosinophils # 0.4 10^3/uL (0.0-0.8); Eosinophils % 3.8 %; Hematocrit 42.8 % (42.0-52.0); Hemoglobin 14.4 g/dL (11.7-16.6); Lymphocytes # 2.4 10^3/uL (0.8-4.8); Lymphocytes % 26.2 %; Mean Corpuscular HGB Conc 33.6 g/dL (30.0-36.0); Mean Corpuscular Hemoglobin 36.4 pg (28.0-34.0); Mean Corpuscular Volume 108.1 fl (80-94); Mean Platelet Volume 10.6 fL (7.4-10.4); Monocytes # 1.2 10^3/uL (0.2-0.9); Monocytes % 13.3 %; Neutrophils # 5.11 10^3/uL (1.8-7.7); Neutrophils % 56.1 %; Nucleated Red Blood Cells % 0 %; Platelet Count 271 10^3/cmm (130-400); Red Blood Count 3.96 10^6/uL (4.1-5.3); Red Cell Distribution Width 14.7 % (12.1-15.1); White Blood Count 9.1 10^3/uL (4.0-10.0)
[2021-09-14] MEDS: pantoprazole DR 40 mg Tablet PO (00:33)
[2021-09-14 00:54] LABS: Troponin(5th) Baseline 17 ng/L (0-15)
[2021-09-14 01:01] LABS: Alanine Aminotransferase 16 U/L (0-41); Albumin Level 4.1 g/dL (3.5-5.2); Alkaline Phosphatase 115 IU/L (40-130); Blood Urea Nitrogen 20 mg/dL (6-20); Calcium 10.1 mg/dL (8.5-10.5); Carbon Dioxide 24 mmol/L (22-29); Chloride 97 mmol/L (98-107); Globulin 3.4 g/dL (1.3-4.6); Glomerular Filtration Rate 145.7 mL/min (90-130); Glucose 96 mg/dL (65-115); Osmolality Calculated 284 mOsm/kg (285-295); Sodium 136 mmol/L (136-145); Thyroid Stimulating Hormone 3.09 uIU/mL (0.27-4.20); Total Bilirubin 0.5 mg/dL (0.15-1.2); Total Protein 7.5 g/dL (6.6-8.7)
[2021-09-14 01:07] LABS: Acetaminophen < 5.0 ug/mL (10-30); Alcohol Level < 10 mg/dL (0-10); Anion Gap 19.3 (5-19); Aspartate Amino Transferase 20 U/L (0-40); Potassium 4.3 mmol/L (3.5-5.1); Salicylate < 0.3 mg/dL (3-10)
--- NOTE | 2021-09-14 01:12 | CTR_ITS ---
PROCEDURE INFORMATION: Exam: CT Chest With Contrast; Diagnostic Exam date and time: 09/14/2021 1:28 AM Age: 46 years old Clinical indication: Shortness of breath; Chest pressure; Patient HX: C/O left sided chest pain with SOB. Multiple rib fractures noted on cxr. History of chronic vertebral body fracture. ; Additional info: L rib fractures, eval inflitrate vs other TECHNIQUE: Imaging protocol: Diagnostic computed tomography of the chest with contrast. Radiation optimization: All CT scans at this facility use at least one of these dose optimization techniques: automated exposure control; mA and/or kV adjustment per patient size (includes targeted exams where dose is matched to clinical indication); or iterative reconstruction. Contrast material: OMNI 300; Contrast volume: 95 ml; Contrast route: INTRAVENOUS (IV); COMPARISON: CT chest abd pel w con* 09/10/2019 11:57 PM RADIATION DOSE METRICS: Total DLP (mGy-cm): 498.24 FINDINGS: Lungs: Lingular and left lower lobe atelectasis and volume loss. Minimal right basilar atelectasis. Pleural spaces: Mild posterior left pleural fluid/blood and very tiny trace left pneumothorax. Heart: Heart and mediastinal structures appear intact. Heart size is normal. Lymph nodes: No enlarged lymph nodes. Aorta: No acute abnormality. No aortic aneurysm, pseudoaneurysm or dissection. Spleen: Intact spleen. Bones/joints: Acute or recent appearing mildly displaced fractures of the lateral left 8th and 9th ribs. Chronic proximal left humerus fracture, multiple old left rib fractures and redemonstrated chronic L1 vertebral body compression fracture. Soft tissues: Mild lower lateral left chest wall soft tissue swelling. CT/CT chest w con* [id number] IMPRESSION: 1. Acute or recent appearing mildly displaced fractures of the lateral left 8th and 9th ribs. 2. Chronic proximal left humerus fracture, multiple old left rib fractures and redemonstrated chronic L1 vertebral body compression fracture. 3. Mild posterior left pleural fluid/blood and very tiny trace left pneumothorax. 4. Lingular and left lower lobe atelectasis and volume loss.
[2021-09-14] MEDS: iohexol 300 mg/mL 100 mL Btl IV (01:26)
--- NOTE | 2021-09-14 01:36 | ECG_ITS ---
[facility] Test Date: 2021-09-14 Pat Name: Israel Gordon Department: Room: Gender: Male Addiction Psychiatrist: : 1975 Requested By: Deon Diane Order Number: [id number] Yeni MD: Leon Mancuso M.D. Measurements Intervals [place] Rate: 113 P: AR: QRS: 31 QRSD: 85 T: 146 QT: 326 QTc: 448 Interpretive Statements ATRIAL FIBRILLATION WITH RAPID VENTRICULAR RESPONSE ST DEVIATION AND MODERATE T-WAVE ABNORMALITY, CONSIDER LATERAL ISCHEMIA [-0.1+ mV T-WAVE IN I/aVL/V5/V6] Compared to ECG 11/13/2019 20:52:38 T-wave abnormality now present Possible ischemia now present Sinus rhythm no longer present Electronically Signed On 09-14-2021 18:15:01 CDT by Leon Mancuso M.D. [email or web address]
[2021-09-14] MEDS: lidocaine 2% viscous 15 ML, aluminum-mag hydrox-simethicon 30 ML, sucralfate oral liq 1 GM PO (01:58)
[2021-09-14 02:50] LABS: Troponin 5 2HR 15.64 ng/L (0-15)
[2021-09-14 02:54] LABS: Troponin 5 2HR Delta -1.36 ABS# (0-10)
[2021-09-14] MEDS: acetaminophen 500 mg Tablet 1000 MG PO (05:11)
[2021-09-14] MEDS: ketorolac 30 mg/mL INJ 15 MG IVP (05:12)
[2021-09-14] MEDS: LORazepam 2 mg Tablet PO ×2 (05:39→19:22)
[2021-09-14 05:48] LABS: Add Urine Microscopic? NO; Charge for UA Resulting for Rev
[2021-09-14 05:54] LABS: Bilirubin Urine Neg (Negative); Blood Urine Neg (Negative); Glucose Urine UA Norm (Normal); Ketones Urine 1+ (Negative); Leukocyte Esterase Urine Negative (Negative); Nitrate Urine Negative (Negative); Protein Urine Neg (Negative); Urine Appearance Clear (CLEAR); Urine Color Yellow (Yellow); Urobilinogen Urine Norm (Negative); pH Urine 6.5 (5-7)
[2021-09-14 07:01] LABS: Troponin 5 6HR 15.64 ng/L (0-15)
[2021-09-14 07:07] LABS: Troponin 5 6HR Delta -1.36 ng/L (0-12)
[2021-09-14 07:34] LABS: Adenovirus Not Detected (NOT DETECT); Chlamydia Pneumoniae Not Detected (NOT DETECT); Coronavirus 229E,HKU1,NL63,OC4 Not Detected (NOT DETECT); Human Metapneumovirus Not Detected (NOT DETECT); Human Rhinovirus/Enterovirus Not Detected (NOT DETECT); Influenza A Not Detected (NOT DETECT); Influenza A H1 Not Detected (NOT DETECT); Influenza A H1-2009 Not Detected (NOT DETECT); Influenza A H3 Not Detected (NOT DETECT); Influenza B Not Detected (NOT DETECT); Mycoplasma Pneumoniae Not Detected (NOT DETECT); Parainfluenza Virus Type 1 Not Detected (NOT DETECT); Parainfluenza Virus Type 2 Not Detected (NOT DETECT); Parainfluenza Virus Type 3 Not Detected (NOT DETECT); Parainfluenza Virus Type 4 Not Detected (NOT DETECT); Respiratory Syncytial Virus A Not Detected (NOT DETECT); Respiratory Syncytial Virus B Not Detected (NOT DETECT); SARS-COV-2 Not Detected (NOT DETECT)
--- NOTE | 2021-09-14 09:20 | PC.PHAR ---
PT STATES HE IS TAKING ALL MEDICATIONS ON MED LIST WRITTEN AND DIRECTED.
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
[2021-09-14] MEDS: HYDROcodone-acetaminophen 5-325 mg Tablet 1 TAB PO ×3 (12:38→21:02)
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
--- NOTE | 2021-09-14 15:09 | PC.NURSE ---
Report called to NGOC Mckinnon in [facility]. Patient to be transferred to room 111-2, 1:1 sitter will be continued with patient to new room.
[2021-09-14] MEDS: thiamine 100 mg Tablet PO (15:13)
[2021-09-14] MEDS: nicotine 21 mg Patch 1 PATCH TRANSDERMA (15:15)
--- NOTE | 2021-09-14 16:24 | PC.NURSE ---
1500 patient transferred from ICU
[2021-09-14] MEDS: trazodone 50 mg Tablet PO (17:05)
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
--- NOTE | 2021-09-14 17:17 | PC.NURSE ---
call placed to Dr Austin to confirm patient 1:[address] order for 1:1 observation
--- NOTE | 2021-09-14 17:24 | PC.NURSE ---
Dr Cast at bedside for assessment and plan of care instructions received to order IS and accapella at bedside
--- NOTE | 2021-09-14 17:45 | PC.NURSE ---
spoke with Dr Austin about SCD's instructions received to dc order
[2021-09-14] MEDS: fluoxetine 20 mg Capsule 80 MG PO (19:22)
[2021-09-14] MEDS: hyDROXYzine 25 mg Capsule 50 MG PO (19:22)
[2021-09-14] MEDS: quetiapine 100 mg Tablet 200 MG PO (19:23)
[2021-09-15] VITALS (11 sets, daily range): BP systolic 106–122; BP diastolic 72–84; PULSE 85–107; RESP 16–20; TEMP 36.5–37.1; O2SAT 92–98
[2021-09-15] MEDS: HYDROcodone-acetaminophen 5-325 mg Tablet 1 TAB PO ×5 (01:39→19:27)
[2021-09-15] MEDS: ipratropium-albuterol 3 mL Neb INHALATION ×2 (02:39→13:24)
--- NOTE | 2021-09-15 06:00 | XR_ITS ---
WS: [id number] Portable AP upright chest, 09/15/2021 Clinical Data: Left 8th and 9th rib fx, with left effusion Comparison: Portable chest, 09/13/2021 Findings: The left pleural effusion is increased moderately. There is still patchy opacity in the lef t lower lobe which could represent contusion, pneumonia or atelectasis. Right lung remains clear. The heart size is not changed. The fractures of the lateral aspects of the left eighth and ninth ribs moscoso ve not changed. There is a healed fracture of the left humeral neck and head. XR/XR chest 1V portable [id number] Impression: 1. Moderate increase in left pleural effusion. 2. No change in atrophy opacity in the left lower lobe.
[2021-09-15] MEDS: quetiapine 100 mg Tablet 200 MG PO ×2 (06:02→19:26)
[2021-09-15] MEDS: nicotine 21 mg Patch 1 PATCH TRANSDERMA (08:03)
[2021-09-15] MEDS: thiamine 100 mg Tablet PO (08:03)
[2021-09-15] MEDS: trazodone 50 mg Tablet PO ×2 (08:03→17:45)
[2021-09-15] MEDS: pantoprazole DR 40 mg Tablet PO (08:04)
[2021-09-15] MEDS: folic acid 1 mg Tablet PO (08:04)
[2021-09-15] MEDS: multivitamin therapeutic Tablet 1 TAB PO (08:04)
[2021-09-15] MEDS: LORazepam 2 mg Tablet PO ×2 (08:04→19:27)
[2021-09-15] MEDS: duloxetine 30 mg Capsule PO ×2 (08:04→19:26)
--- NOTE | 2021-09-15 09:39 | P.PN_ITS ---
Subjective Subjective: Israel reports he is doing okay. Still some pain when he takes a deep breath. No fevers have been noted. Medications: Reviewed: Yes Vitals/I&O/Wt Last Vital Signs Temp 98.5 F 09/15/21 08:00 Pulse 86 09/15/21 08:44 Resp 18 09/15/21 08:44 BP 106/72 09/15/21 08:00 Pulse Ox 92 09/15/21 08:44 09/14/21 09/15/21 09/15/21 22:59 06:59 14:59 Intake Total 480 / 720 600 / 1320 118 / 118 Output Total 575 / 575 500 / 1075 Balance -95 / 145 100 / 245 118 / 118 Weight last 48 hrs Weight 65.941 kg Physical Exam Narrative: General exam is a white male, no distress HEENT: Pupils equally round. Oropharynx clear. Neck is supple no lymphadenopathy thyromegaly Cardiovascular regular rate and rhythm without murmur Lungs clear bilaterally. Left with diminished breath sounds. Abdomen is soft nontender positive bowel sounds. No obvious organomegaly Extremities no cyanosis clubbing or edema, cap refill brisk Skin no rash Neuro no obvious focal deficits. Data : 09/14/21 00:23 09/14/21 00:23 Other data: Repeat chest x-ray today per my read about the same. Perhaps a little bit more atelectasis. Radiology reading question increasing pleural effusion. A&P Assessment and plan (1) Suicidal ideation: Presented with suicidal ideation Psychiatric consultation and/or primary service 96-hour hold Status: Acute (2) Ribs, multiple fractures: Incentive spirometry Monitor for any complications such as pneumonia. Normal white count, no fever on admission and CT scan suggested atelectasis. Repeat x-ray today does not show pneumothorax, as it did not on admission. This was picked up on CT. Question slight increase in pleural effusion on chest x-ray today. However, this may be difference in technique. Could consider follow-up x-ray in several days Appreciate cardiothoracic surgery consultation Status: Acute (3) Pneumothorax: See above Status: Acute (4) Alcohol use disorder, severe, dependence: Monitor for any withdrawal Status: Acute (5) Bipolar 1 disorder, manic, mild: As per psychiatry Status: Acute Plan Full code SCDs for DVT prophylaxis while in bed. Attestations Medical Necessity Statement*: Needs continued hospitalization secondary to suicidal ideation requiring psychiatric care. Coding Level of Care Code Acute Long Term Care Social Worker for Chg Fwd Diagnoses Suicidal ideation R45.851 Ribs, multiple fractures S22.49XA Pneumothorax J93.9 Alcohol use disorder, severe, dependence F10.20 Bipolar 1 disorder, manic, mild F31.11
--- NOTE | 2021-09-15 11:26 | P.NPUPN_ITS ---
Subjective NPU Subjective: He says that his anxiety and depression are about the same. He continues to have chest pain. He took the Prozac last night and the Cymbalta this morning. He would like the Cymbalta changed to bedtime with all of his other medications. He continues to want to take the Seroquel 200 mg twice a day and trazodone 50 mg twice a day. I offered him an antipsychotic again and he will think about it. Mental Status Exam MSE Comments: This is a 46-year-old thin, male who appears approximately his stated age and is in no acute distress. He is pleasant and cooperative with the evaluation. He is in bed in the med-surg unit in [facility]. He has a full guillen and is fairly well-groomed psychomotor activity mildly decreased. Speech is at a regular rate and rhythm, normal volume, good articulation, not pressured. Alert, oriented X3 Attention and concentration appears to be normal. Memory is intact Mood is depressed and anxious. Affect is moderately dysphoric. Thought process is logical and goal-directed. Thought content: Denies auditory and visual hallucinations. No delusions or paranoia are noted. No current suicidal ideation, and no homicidal ideation. Fund of knowledge is probably average. Insight and judgment appear to be fair-poor. Impulse control is poor. Cognition: Level of Consciousness: Awake, Alert, Appropriate and Follows Commands Patient Cognition Impaired: No Ability to Follow Directions: Good Patient Orientation (long list): Person, Place, Time and Name Comprehension Ability: No Impairment Affect: Affect Description: Appropriate Behavior: Patient Behavior: Appropriate and Cooperative Speech Pattern: Appropriate and Clear Vitals/I&O/Wt Last Vital Signs Temp 98.5 F 09/15/21 08:00 Pulse 86 09/15/21 08:44 Resp 18 09/15/21 08:44 BP 106/72 09/15/21 08:00 Pulse Ox 92 09/15/21 08:44 09/14/21 09/15/21 09/15/21 22:59 06:59 14:59 Intake Total 480 / 720 600 / 1320 118 / 118 Output Total 575 / 575 500 / 1075 Balance -95 / 145 100 / 245 118 / 118 Weight last 48 hrs Weight 65.941 kg Data NPU : 09/14/21 00:23 09/14/21 00:23 A&P Assessment and plan (1) Pneumothorax: Status: Acute (2) Suicidal ideation: Status: Acute (3) Alcohol intoxication: Status: Acute (4) Alcohol use disorder: Status: Acute (5) Methamphetamine abuse: Status: Acute (6) Adjustment disorder with mixed disturbance of emotions and conduct: Status: Acute (7) Major depressive disorder: Status: Acute Plan This is a 46-year-old male with many past psychiatric admissions and significant history of substance abuse who comes in with increasing anxiety and depression with suicidal ideation Plan: 1. Continue current medication. Add Cymbalta 30 mg at bedtime at his request. 2. Continue every 15 minute checks for safety. 3. Encourage individual, group and milieu therapies. 4. Encourage sober living treatment after discharge at the highest level of care to which he is willing to commit. 5. We will monitor for safety for himself in the community prior to discharge. Involuntary Hold Information 2 96 Hour Hold: 96 Hour Involuntary Admission: No Attestations NPU Medical Necessity Statement*: Inpatient hospitalization is medically necessary and the clinically appropriate intervention at this time. We will initiate medications and make changes as indicated. Coding Level of Care Code Acute Fire Pilot for Camila Fwd Diagnoses Pneumothorax J93.9 Suicidal ideation R45.851 Alcohol intoxication F10.929 Alcohol use disorder Methamphetamine abuse F15.10 Adjustment disorder with mixed disturbance of emotions and conduct F43.25 Major depressive disorder F32.9
[2021-09-15] MEDS: nicotine 2 mg Gum BUCCAL ×2 (17:45→19:06)
[2021-09-15] MEDS: acetaminophen 325 mg Tablet 650 MG PO (17:48)
[2021-09-15] MEDS: hyDROXYzine 25 mg Capsule 50 MG PO (19:25)
[2021-09-15] MEDS: fluoxetine 20 mg Capsule 80 MG PO (19:26)
--- NOTE | 2021-09-15 21:41 | PC.NURSE ---
Patient requesting to have IV removed. No IV medications ordered. Patient 1:1 and 96 [address] hold presently. Informed Dr Orourke and received okay to remove IV and to not have one at this time.
[2021-09-16] VITALS (10 sets, daily range): BP systolic 112–143; BP diastolic 72–88; PULSE 84–101; RESP 12–22; TEMP 36.4–36.9; O2SAT 93–97
--- NOTE | 2021-09-16 00:23 | PC.NURSE ---
Patient to be transferred to [facility] to room 255-2. Report called to NGOC Deng at this time. Waiting for security for assistance.
[2021-09-16] MEDS: HYDROcodone-acetaminophen 5-325 mg Tablet 1 TAB PO ×5 (00:45→19:56)
--- NOTE | 2021-09-16 00:49 | PC.NURSE ---
Patient escorted to [facility] room 255-2 by Mason Kitchen and Zhao from security. Patient medicated for pain as documented at this time. No other distress observed.
[2021-09-16] MEDS: nicotine 2 mg Gum BUCCAL ×7 (01:00→19:57)
[2021-09-16] MEDS: ipratropium-albuterol 3 mL Neb INHALATION (02:52)
[2021-09-16 04:42] LABS: Basophils % 0.4 %; Eosinophils # 0.3 10^3/uL (0.0-0.8); Eosinophils % 5.3 %; Hematocrit 41.6 % (42.0-52.0); Hemoglobin 13.6 g/dL (11.7-16.6); Lymphocytes # 1.7 10^3/uL (0.8-4.8); Lymphocytes % 30.4 %; Mean Corpuscular HGB Conc 32.7 g/dL (30.0-36.0); Mean Corpuscular Volume 110.1 fl (80-94); Mean Platelet Volume 8.6 fL (7.4-10.4); Monocytes # 0.7 10^3/uL (0.2-0.9); Monocytes % 12.9 %; Neutrophils # 2.86 10^3/uL (1.8-7.7); Neutrophils % 50.6 %; Nucleated Red Blood Cells % 0 %; Platelet Count 309 10^3/cmm (130-400); Red Blood Count 3.78 10^6/uL (4.1-5.3); Red Cell Distribution Width 14.3 % (12.1-15.1); White Blood Count 5.7 10^3/uL (4.0-10.0)
[2021-09-16] MEDS: quetiapine 100 mg Tablet 200 MG PO ×2 (06:10→19:56)
[2021-09-16] MEDS: trazodone 50 mg Tablet PO ×2 (07:22→17:34)
[2021-09-16] MEDS: multivitamin therapeutic Tablet 1 TAB PO (07:22)
[2021-09-16] MEDS: thiamine 100 mg Tablet PO (07:23)
[2021-09-16] MEDS: folic acid 1 mg Tablet PO (07:23)
[2021-09-16] MEDS: pantoprazole DR 40 mg Tablet PO (07:23)
--- NOTE | 2021-09-16 13:59 | W.PM.NPUPNS ---
Subjective NPU Subjective: He says that he is doing a little better. He saw an advertisement for a new medication for bipolar. I reminded him that he took Latuda when he was on the unit previously. He said it was helpful but he could not afford it upon discharge. He was told that was an antipsychotic and was reminded that I told him that an antipsychotic would be more commonly added to Prozac as opposed to Cymbalta for anxiety and depression. He would like to try the Latuda. He has Medicaid insurance now. He should be able to get it when he leaves. We will probably have to discontinue the Cymbalta because Medicaid does not like it when you are on so many medications. Mental Status Exam MSE Comments: This is a 46-year-old thin, male who appears approximately his stated age and is in no acute distress. He is pleasant and cooperative with the evaluation. He is in bed in the med-surg unit in [facility]. He has a full guillen and is fairly well-groomed psychomotor activity mildly decreased. Speech is at a regular rate and rhythm, normal volume, good articulation, not pressured. Alert, oriented X3 Attention and concentration appears to be normal. Memory is intact Mood is depressed and anxious. Affect is moderately dysphoric. Thought process is logical and goal-directed. Thought content: Denies auditory and visual hallucinations. No delusions or paranoia are noted. No current suicidal ideation, and no homicidal ideation. Fund of knowledge is probably average. Insight and judgment appear to be fair-poor. Impulse control is poor. Cognition: Level of Consciousness: Awake, Alert, Appropriate and Follows Commands Patient Cognition Impaired: No Ability to Follow Directions: Good Patient Orientation (long list): Person, Place, Time, Name, Age and Birthday Comprehension Ability: No Impairment Affect: Affect Description: Appropriate Behavior: Patient Behavior: Appropriate and Cooperative Speech Pattern: Appropriate and Clear Vitals/I&O/Wt Last Vital Signs Temp 98.4 F 09/16/21 12:00 Pulse 101 H 09/16/21 12:00 Resp 18 09/16/21 12:00 BP 118/79 09/16/21 12:00 Pulse Ox 94 09/16/21 12:00 09/15/21 09/16/21 09/16/21 22:59 06:59 14:59 Intake Total 600 / 1198 310 / 1508 480 / 480 Output Total 200 / 600 Balance 400 / 598 310 / 908 480 / 480 Data NPU : 09/16/21 04:30 09/14/21 00:23 A&P Assessment and plan (1) Pneumothorax: Status: Acute (2) Suicidal ideation: Status: Acute (3) Alcohol intoxication: Status: Acute (4) Alcohol use disorder: Status: Acute (5) Methamphetamine abuse: Status: Acute (6) Adjustment disorder with mixed disturbance of emotions and conduct: Status: Acute (7) Major depressive disorder: Status: Acute Plan This is a 46-year-old male with many past psychiatric admissions and significant history of substance abuse who comes in with increasing anxiety and depression with suicidal ideation Plan: 1. Continue current medication. Add Cymbalta 30 mg at bedtime at his request. Add Latuda 20 mg at dinner. 2. Continue every 15 minute checks for safety. 3. Encourage individual, group and milieu therapies. 4. Encourage sober living treatment after discharge at the highest level of care to which he is willing to commit. 5. We will monitor for safety for himself in the community prior to discharge. Involuntary Hold Information 96 Hour Hold: 96 Hour Involuntary Admission: No Attestations NPU Medical Necessity Statement*: Inpatient hospitalization is medically necessary and the clinically appropriate intervention at this time. We will initiate medications and make changes as indicated. Coding Level of Care Code Acute Production Metal Sprayer for Camila Alvares Diagnoses Pneumothorax J93.9 Suicidal ideation R45.851 Alcohol intoxication F10.929 Alcohol use disorder Methamphetamine abuse F15.10 Adjustment disorder with mixed disturbance of emotions and conduct F43.25 Major depressive disorder F32.9
[2021-09-16] MEDS: hyDROXYzine 25 mg Capsule 50 MG PO (15:56)
[2021-09-16] MEDS: LORazepam 2 mg Tablet PO (16:00)
[2021-09-16] MEDS: lurasidone 20 mg Tablet PO (17:34)
[2021-09-16] MEDS: fluoxetine 20 mg Capsule 80 MG PO (19:57)
[2021-09-16] MEDS: duloxetine 30 mg Capsule PO (19:57)
[2021-09-17] VITALS (8 sets, daily range): BP systolic 105–125; BP diastolic 70–84; PULSE 85–102; RESP 15–18; TEMP 36.4–36.9; O2SAT 91–96
[2021-09-17] MEDS: HYDROcodone-acetaminophen 5-325 mg Tablet 1 TAB PO ×3 (00:18→09:46)
[2021-09-17] MEDS: LORazepam 2 mg Tablet PO ×5 (04:18→21:14)
[2021-09-17] MEDS: quetiapine 100 mg Tablet 200 MG PO ×2 (06:04→20:21)
--- NOTE | 2021-09-17 08:01 | PC.NURSE ---
pt scored 13 on 0800 CIWA, 2mg ativan given PO per protocol. will continue to monitor
[2021-09-17] MEDS: folic acid 1 mg Tablet PO (08:03)
[2021-09-17] MEDS: nicotine 2 mg Gum BUCCAL ×8 (08:03→22:19)
[2021-09-17] MEDS: thiamine 100 mg Tablet PO (08:03)
[2021-09-17] MEDS: pantoprazole DR 40 mg Tablet PO (08:03)
[2021-09-17] MEDS: trazodone 50 mg Tablet PO ×2 (08:03→17:37)
[2021-09-17] MEDS: multivitamin therapeutic Tablet 1 TAB PO (08:03)
--- NOTE | 2021-09-17 10:01 | W.PM.NPUPNS ---
Subjective NPU Subjective: He says that he is feeling a little better. He did not notice any benefits or side effects from the Latuda 20 mg yesterday evening. He agreed to increase that to 40 mg today. He denies any suicidal ideation. His mood is a little better. He thinks he will be ready to go home tomorrow or Saturday. Mental Status Exam MSE Comments: This is a 46-year-old thin, male who appears approximately his stated age and is in no acute distress. He is pleasant and cooperative with the evaluation. He is in bed in the med-surg unit in [facility]. He has a full guillen and is fairly well-groomed psychomotor activity mildly decreased. Speech is at a regular rate and rhythm, normal volume, good articulation, not pressured. Alert, oriented X3 Attention and concentration appears to be normal. Memory is intact Mood is depressed and anxious. Affect is moderately dysphoric. Thought process is logical and goal-directed. Thought content: Denies auditory and visual hallucinations. No delusions or paranoia are noted. No current suicidal ideation, and no homicidal ideation. Fund of knowledge is probably average. Insight and judgment appear to be fair-poor. Impulse control is poor. Cognition: Level of Consciousness: Awake, Alert, Appropriate and Follows Commands Patient Cognition Impaired: No Ability to Follow Directions: Good Patient Orientation (long list): Person, Place, Time, Name, Age and Birthday Comprehension Ability: No Impairment Affect: Affect Description: Appropriate Behavior: Patient Behavior: Appropriate and Cooperative Speech Pattern: Appropriate and Clear Vitals/I&O/Wt Last Vital Signs Temp 97.5 F L 09/17/21 09:11 Pulse 85 09/17/21 09:11 Resp 16 09/17/21 09:11 BP 106/70 09/17/21 09:11 Pulse Ox 91 09/17/21 09:11 09/16/21 09/17/21 09/17/21 22:59 06:59 14:59 Intake Total 600 / 1080 240 / 240 Output Total 400 / 400 Balance 200 / 680 240 / 240 Data NPU : 09/16/21 04:30 09/14/21 00:23 A&P Assessment and plan (1) Pneumothorax: Status: Acute (2) Suicidal ideation: Status: Acute (3) Alcohol intoxication: Status: Acute (4) Alcohol use disorder: Status: Acute (5) Methamphetamine abuse: Status: Acute (6) Adjustment disorder with mixed disturbance of emotions and conduct: Status: Acute (7) Major depressive disorder: Status: Acute Plan This is a 46-year-old male with many past psychiatric admissions and significant history of substance abuse who comes in with increasing anxiety and depression with suicidal ideation Plan: 1. Continue current medication. Add Cymbalta 30 mg at bedtime at his request. Increase Latuda 40 mg at dinner. 2. Continue every 15 minute checks for safety. 3. Encourage individual, group and milieu therapies. 4. Encourage sober living treatment after discharge at the highest level of care to which he is willing to commit. 5. We will monitor for safety for himself in the community prior to discharge. Involuntary Hold Information 96 Hour Hold: 96 Hour Involuntary Admission: No Attestations U Medical Necessity Statement*: Inpatient hospitalization is medically necessary and the clinically appropriate intervention at this time. We will initiate medications and make changes as indicated. Coding Level of Care Code Acute Poly Area Supervisor for Camila Alvares Diagnoses Pneumothorax J93.9 Suicidal ideation R45.851 Alcohol intoxication F10.929 Alcohol use disorder Methamphetamine abuse F15.10 Adjustment disorder with mixed disturbance of emotions and conduct F43.25 Major depressive disorder F32.9
--- NOTE | 2021-09-17 12:28 | PC.NURSE ---
1200 CIWA assessment pt given 2mg PO ativan per protocol d/t scoring of 13
[2021-09-17] MEDS: lurasidone 20 mg Tablet 40 MG PO (16:38)
--- NOTE | 2021-09-17 16:40 | PC.NURSE ---
1600 CIWA pt given 2mg PO ativan per protocol for score of 14 will continue to monitor
--- NOTE | 2021-09-17 17:07 | P.PN_ITS ---
Subjective Subjective: Patient states that he is feeling better, working with incentive spirometer and flutter valve, denies any chest pain or shortness of breath. Medications: Reviewed: Yes Medication Review Details: Generic Name Dose Route Start Last Admin Trade Name Freq PRN Reason Stop Dose Admin Acetaminophen 650 mg 09/14/21 11:13 09/15/21 17:48 Acetaminophen 32 5 Mg Tablet PO 650 mg Q6H PRN Administration Mild/Mod Pain Or Temp >/= 101 Hydrocodone Bitart /Acetaminophen 1 tab 09/14/21 10:48 09/17/21 09:46 Hydrocodone-Acet aminophen 5-325 Mg Tablet PO 1 tab Q4H PRN Administration MODERATE TO SEVER E PAIN Albuterol/Ipratrop ium 3 ml 09/14/21 14:38 09/16/21 02:52 Ipratropium-Albu terol 3 Ml Neb INHALATION 3 ml Q6H PRN Administration SHORTNESS OF ALYX TH Duloxetine HCl 30 mg 09/15/21 21:00 09/16/21 19:57 Duloxetine 30 Mg Capsule PO 30 mg BEDTIME ALEC Administration Fluoxetine HCl 80 mg 09/14/21 21:00 09/16/21 19:57 Fluoxetine 20 Mg Capsule PO 80 mg BEDTIME ALEC Administration Folic Acid 1 mg 09/15/21 09:00 09/17/21 08:03 Folic Acid 1 Mg Tablet PO 1 mg DAILY ALEC Administration Hydroxyzine Pamoat e 50 mg 09/14/21 14:57 09/16/21 15:56 Hydroxyzine 25 M g Capsule PO 50 mg QID PRN Administration ANXIETY Lorazepam 2 mg 09/14/21 14:36 09/17/21 16:38 Lorazepam 2 Mg T ablet PO 2 mg PROTOCOL PRN Administration WITHDRAWAL Protocol Lurasidone HCl 40 mg 09/17/21 17:00 09/17/21 16:38 Lurasidone 20 Mg Tablet PO 40 mg 1700 ALEC Administration Multivitamins Ther apeutic 1 tab 09/15/21 09:00 09/17/21 08:03 Multivitamin The rapeutic Tablet PO 1 tab DAILY ALEC Administration Nicotine Polacrile x 2 mg 09/15/21 16:45 09/17/21 16:38 Nicotine 2 Mg Gu m BUCCAL 2 mg Q2H ALEC Administration Pantoprazole Sodiu m 40 mg 09/15/21 09:00 09/17/21 08:[address] 40 Mg Tablet PO 40 mg DAILY ALEC Administration Quetiapine Fumarat e 200 mg 09/14/21 21:00 09/17/21 06:04 Quetiapine 100 M g Tablet PO 200 mg 0700,2100 ALEC Administration Thiamine Mononitra te 100 mg 09/14/21 14:40 09/17/21 08:03 Thiamine 100 Mg Tablet PO 100 mg DAILY ALEC Administration Trazodone HCl 50 mg 09/14/21 18:00 09/17/21 08:03 Trazodone 50 Mg Tablet PO 50 mg BID ALEC Administration Vitals/I&O/Wt Last Vital Signs Temp 97.9 F 09/17/21 12:07 Pulse 87 09/17/21 12:07 Resp 17 09/17/21 12:07 BP 116/78 09/17/21 12:07 Pulse Ox 94 09/17/21 12:07 09/17/21 09/17/21 09/17/21 06:59 14:59 22:59 Intake Total 480 / 480 Balance 480 / 480 Physical Exam Const: COMMON NORMALS: patient oriented x3 HENMT: COMMON NORMALS: normocephalic and atraumatic HEAD & SCALP: normocephalic and atraumatic Chest: CHEST: Yes Symmetrical chest wall rise Resp: COMMON NORMALS: normal respiratory effort and clear to auscultation bilaterally EFFORT & INSPECTION: Yes symmetric chest movement AUSCULTATION: clear to auscultation bilaterally Cardio: COMMON NORMALS: regular rate, regular rhythm, S1 normal heart sound present, S2 normal heart sound present, No gallops present (Cardio), No murmurs present (Cardio), No rub (Cardio) and Peripheral pulses 2+ throughout RATE: regular rate RHYTHM: regular rhythm HEART SOUNDS: S1 normal heart sound present and S2 normal heart sound present PERIPHERAL PULSES: Peripheral pulses 2+ throughout GI: COMMON NORMALS: Normal to inspection, nondistended, normoactive bowel sounds present, Soft to palpation, non-tender, No hepatosplenomegaly present and no masses AUSCULTATION: Yes normoactive bowel sounds PALPATION: Yes Soft to palpation and Yes No hepatosplenomegaly present RECTAL EXAM: Yes deferred Extremity: COMMON NORMALS: no clubbing, cyanosis or edema and no pedal edema Neuro: COMMON NORMALS: patient oriented x3 Data : 09/16/21 04:30 09/14/21 00:23 A&P Assessment and plan (1) Suicidal ideation: Presented with suicidal ideation Psychiatric consultation and/or primary service 96-hour hold Status: Acute (2) Ribs, multiple fractures: Incentive spirometry Monitor for any complications such as pneumonia. Normal white count, no fever on admission and CT scan suggested atelectasis. Repeat x-ray today does not show pneumothorax, as it did not on admission. This was picked up on CT. Question slight increase in pleural effusion on chest x-ray today. However, this may be difference in technique. Could consider follow-up x-ray in several days Appreciate cardiothoracic surgery consultation Status: Acute (3) Pneumothorax: See above Status: Acute (4) Alcohol use disorder, severe, dependence: Monitor for any withdrawal Status: Acute (5) Bipolar 1 disorder, manic, mild: As per psychiatry Status: Acute Plan Full code SCDs for DVT prophylaxis while in bed. Attestations Medical Necessity Statement*: Patient is to the hospital for above defined problems. Coding Level of Care Code Acute Socially Responsible Investment Adviser for g Fwd Diagnoses Suicidal ideation R45.851 Ribs, multiple fractures S22.49XA Pneumothorax J93.9 Alcohol use disorder, severe, dependence F10.20 Bipolar 1 disorder, manic, mild F31.11
--- NOTE | 2021-09-17 17:10 | XRR_ITS ---
PROCEDURE INFORMATION: Exam: XR Chest Exam date and time: 09/17/2021 5:30 PM Age: 46 years old Clinical indication: Dyspnea; Additional info: Left pneumothorax. TECHNIQUE: Imaging protocol: XR of the chest. Views: 1 view. COMPARISON: CR XR chest 1V portable [id number] 09/15/2021 5:26 AM FINDINGS: Lungs: Small to moderate left pleural effusion with left mid to lower lung field airspace infiltrate, somewhat less prominent compared to prior exam. Right lower lobe atelectasis. Pleural spaces: See Lungs finding. Heart/Mediastinum: Unremarkable. No cardiomegaly. Bones/joints: Unremarkable. XR/XR chest 1V portable [id number] IMPRESSION: 1. Small to moderate left pleural effusion with left mid to lower lung field airspace infiltrate, somewhat less prominent compared to prior exam. 2. Right lower lobe atelectasis.
[2021-09-17] MEDS: duloxetine 30 mg Capsule PO (20:20)
[2021-09-17] MEDS: fluoxetine 20 mg Capsule 80 MG PO (20:21)
[2021-09-17] MEDS: hyDROXYzine 25 mg Capsule 50 MG PO (21:14)
[2021-09-18] VITALS (8 sets, daily range): BP systolic 103–120; BP diastolic 66–81; PULSE 28–96; RESP 16–103; TEMP 36.5–36.8; O2SAT 92–96
[2021-09-18 05:04] LABS: Basophils % 0.5 %; Eosinophils # 0.5 10^3/uL (0.0-0.8); Hematocrit 43.3 % (42.0-52.0); Hemoglobin 14.2 g/dL (11.7-16.6); Lymphocytes % 33.3 %; Mean Corpuscular HGB Conc 32.8 g/dL (30.0-36.0); Mean Corpuscular Hemoglobin 36.2 pg (28.0-34.0); Mean Corpuscular Volume 110.5 fl (80-94); Mean Platelet Volume 8.6 fL (7.4-10.4); Monocytes # 0.9 10^3/uL (0.2-0.9); Monocytes % 14.1 %; Neutrophils # 2.64 10^3/uL (1.8-7.7); Neutrophils % 43.9 %; Nucleated Red Blood Cells % 0 %; Platelet Count 364 10^3/cmm (130-400); Red Blood Count 3.92 10^6/uL (4.1-5.3); Red Cell Distribution Width 13.5 % (12.1-15.1)
[2021-09-18 05:16] LABS: Anion Gap 14.2 (5-19); Blood Urea Nitrogen 16 mg/dL (6-20); Calcium 8.3 mg/dL (8.5-10.5); Carbon Dioxide 25 mmol/L (22-29); Chloride 102 mmol/L (98-107); Glucose 110 mg/dL (65-115); Osmolality Calculated 286 mOsm/kg (285-295); Potassium 4.2 mmol/L (3.5-5.1); Sodium 137 mmol/L (136-145)
[2021-09-18] MEDS: quetiapine 100 mg Tablet 200 MG PO ×2 (06:04→20:57)
[2021-09-18] MEDS: HYDROcodone-acetaminophen 5-325 mg Tablet 1 TAB PO (06:07)
[2021-09-18] MEDS: LORazepam 2 mg Tablet PO ×3 (08:23→16:37)
--- NOTE | 2021-09-18 08:23 | PC.NURSE ---
0800 RAMON pt scored 10 on assessment, is receiving 2mg PO ativan per protocol will continue to monitor
[2021-09-18] MEDS: folic acid 1 mg Tablet PO (08:24)
[2021-09-18] MEDS: pantoprazole DR 40 mg Tablet PO (08:24)
[2021-09-18] MEDS: multivitamin therapeutic Tablet 1 TAB PO (08:24)
[2021-09-18] MEDS: trazodone 50 mg Tablet PO ×2 (08:24→18:27)
[2021-09-18] MEDS: thiamine 100 mg Tablet PO (08:24)
--- NOTE | 2021-09-18 12:38 | PC.NURSE ---
1200 CIWA pt scored 10 on assessment, received 2mg PO ativan per protocol.
--- NOTE | 2021-09-18 13:39 | P.NPUPN_ITS ---
Subjective NPU Subjective: He says that he is feeling a little better. He had not had side effects or benefits from Latuda 40 mg that he had yesterday. He agreed to keep on trying that. He says that he is not having crazy thoughts and is not having suicidal ideations. He said that he did not have services that [facility]. He had an appointment with Dr. Yancey after the last admission here but it was canceled. It does not look like he had an intake. I talked with social security specialist and they will have someone go up and have him do an application for [facility]. He says that he is getting up and walking around some. He was preparing to take a shower when I arrived. Mental Status Exam MSE Comments: This is a 46-year-old thin, male who appears approximately his stated age and is in no acute distress. He is pleasant and cooperative with the evaluation. He is in bed in the med-surg unit in [facility]. He has a full guillen and is fairly well-groomed psychomotor activity mildly decreased. Speech is at a regular rate and rhythm, normal volume, good articulation, not pressured. Alert, oriented X3 Attention and concentration appears to be normal. Memory is intact Mood is depressed but better. Affect is moderately dysphoric. Thought process is logical and goal-directed. Thought content: Denies auditory and visual hallucinations. No delusions or paranoia are noted. No current suicidal ideation, and no homicidal ideation. Fund of knowledge is probably average. Insight and judgment appear to be fair-poor. Impulse control is poor. Cognition: Patient Appearance: Appropriate Level of Consciousness: Awake, Alert, Appropriate and Follows Commands Patient Cognition Impaired: No Ability to Follow Directions: Good Patient Orientation (long list): Person, Place, Time, Name, Age, Birthday, Day of Month, Day of Week, Month, Time of Day and Year Comprehension Ability: No Impairment Hallucination Type: None Delusion Description: Not Present Thought Process: Blocking Affect: Affect Description: Appropriate, Anxious and Calm Behavior: Patient Behavior: Appropriate and Cooperative Speech Pattern: Appropriate and Clear Vitals/I&O/Wt Last Vital Signs Temp 97.9 F 09/18/21 12:00 Pulse 87 09/18/21 12:00 Resp 18 09/18/21 12:00 BP 120/80 04/18/22 12:00 Pulse Ox 94 09/18/21 12:00 09/17/21 09/18/21 09/18/21 22:59 06:59 14:59 Intake Total 0 / 1519 480 / 1999 480 / 480 Balance 1039 / 1999 480 / 480 Data NPU : 09/18/21 04:50 09/18/21 04:50 A&P Assessment and plan (1) Pneumothorax: Status: Acute (2) Suicidal ideation: Status: Acute (3) Alcohol intoxication: Status: Acute (4) Alcohol use disorder: Status: Acute (5) Methamphetamine abuse: Status: Acute (6) Adjustment disorder with mixed disturbance of emotions and conduct: Status: Acute (7) Major depressive disorder: Status: Acute Plan This is a 46-year-old male with many past psychiatric admissions and significant history of substance abuse who comes in with in creasing anxiety and depression with suicidal ideation Plan: 1. Continue current medication. Add Cymbalta 30 mg at bedtime at his request. Increase Latuda 40 mg at dinner. 2. Continue every 15 minute checks for safety. 3. Encourage individual, group and milieu therapies. 4. Encourage sober living treatment after discharge at the highest level of care to which he is willing to commit. 5. We will monitor for safety for himself in the community prior to discharge. Involuntary Hold Information 96 Hour Hold: 96 Hour Involuntary Admission: No Attestations NPU Medical Necessity Statement*: Inpatient hospitalization is medically necessary and the clinically appropriate intervention at this time. We will initiate medications and make changes as indicated. Coding Level of Care Code Acute Slag Dumper for Camila Alvares Diagnoses Pneumothorax J93.9 Suicidal ideation R45.851 Alcohol intoxication F10.929 Alcohol use disorder Methamphetamine abuse F15.10 Adjustment disorder with mixed disturbance of emotions and conduct F43.25 Major depressive disorder F32.9
[2021-09-18] MEDS: acetaminophen 325 mg Tablet 650 MG PO (16:22)
--- NOTE | 2021-09-18 17:23 | P.PN_ITS ---
Subjective Subjective: Hospital course, labs appreciated. On examination he is laying comfortably in bed on phone with sitter at bedside. Denies any nausea vomiting, headache. States he is feeling better. Denies any difficulty in breathing. Working with incentive spirometer and further well. Patient states that he is feeling better, working with incentive spirometer and flutter valve, denies any chest pain or shortness of breath. Vitals/I&O/Wt Last Vital Signs Temp 97.7 F 09/18/21 16:00 Pulse 96 09/18/21 16:00 Resp 18 09/18/21 16:00 BP 117/81 09/18/21 16:00 Pulse Ox 95 09/18/21 16:00 09/18/21 09/18/21 09/18/21 06:59 14:59 22:59 Intake Total 480 / 1999 720 / 720 Balance 480 / 1999 720 / 720 Physical Exam Narrative: General exam is a white male, no distress HEENT: Pupils equally round. Oropharynx clear. Neck is supple no lymphadenopathy thyromegaly Cardiovascular regular rate and rhythm without murmur Lungs clear bilaterally. Left with diminished breath sounds. Abdomen is soft nontender positive bowel sounds. No obvious organomegaly Extremities no cyanosis clubbing or edema, cap refill brisk Skin no rash Neuro no obvious focal deficits. Data : 09/18/21 04:50 09/18/21 04:50 A&P Assessment and plan (1) Suicidal ideation: Presented with suicidal ideation Management as per psychiatric team. Status: Acute (2) Ribs, multiple fractures: Incentive spirometry, flutter valve. Keep saturation over 91%. Repeat chest x-ray tomorrow morning. Appreciate cardiothoracic surgery consultation Status: Acute (3) Pneumothorax: See above Status: Acute (4) Alcohol use disorder, severe, dependence: Monitor for any withdrawal Status: Acute (5) Bipolar 1 disorder, manic, mild: As per psychiatry Status: Acute Plan Full code SCDs for DVT prophylaxis while in bed. Attestations Medical Necessity Statement*: As per primary team. Time Spent in Patient Care: 16 - 35 minutes Coding Level of Care Code Acute Motorbike Courier for [facility] Fwd Diagnoses Suicidal ideation R45.851 Ribs, multiple fractures S22.49XA Pneumothorax J93.9 Alcohol use disorder, severe, dependence F10.20 Bipolar 1 disorder, manic, mild F31.11
[2021-09-18] MEDS: lurasidone 20 mg Tablet 40 MG PO (18:27)
[2021-09-18] MEDS: nicotine 2 mg Gum BUCCAL (18:30)
[2021-09-18] MEDS: duloxetine 30 mg Capsule PO (20:57)
[2021-09-18] MEDS: fluoxetine 20 mg Capsule 80 MG PO (20:57)
[2021-09-18] MEDS: hyDROXYzine 25 mg Capsule 50 MG PO (20:57)
[2021-09-19] MEDS: acetaminophen 325 mg Tablet 650 MG PO ×2 (02:21→08:27)
[2021-09-19] MEDS: nicotine 2 mg Gum BUCCAL ×2 (02:24→08:28)
[2021-09-19 04:17] VITALS: BP 124/78; PULSE 86; RESP 18; TEMP 36.4; O2SAT 97
[2021-09-19 05:29] LABS: Basophils % 0.5 %; Eosinophils # 0.6 10^3/uL (0.0-0.8); Eosinophils % 9.8 %; Hematocrit 43.7 % (42.0-52.0); Hemoglobin 14.2 g/dL (11.7-16.6); Lymphocytes # 1.7 10^3/uL (0.8-4.8); Lymphocytes % 27.1 %; Mean Corpuscular HGB Conc 32.5 g/dL (30.0-36.0); Mean Corpuscular Hemoglobin 35.7 pg (28.0-34.0); Mean Corpuscular Volume 109.8 fl (80-94); Monocytes # 0.9 10^3/uL (0.2-0.9); Monocytes % 13.3 %; Neutrophils # 3.13 10^3/uL (1.8-7.7); Neutrophils % 48.8 %; Nucleated Red Blood Cells % 0 %; Platelet Count 394 10^3/cmm (130-400); Red Blood Count 3.98 10^6/uL (4.1-5.3); Red Cell Distribution Width 13.4 % (12.1-15.1); White Blood Count 6.4 10^3/uL (4.0-10.0)
[2021-09-19 05:45] LABS: Anion Gap 14.9 (5-19); Blood Urea Nitrogen 21 mg/dL (6-20); Calcium 9.1 mg/dL (8.5-10.5); Carbon Dioxide 24 mmol/L (22-29); Chloride 102 mmol/L (98-107); Glomerular Filtration Rate 104.5 mL/min (90-130); Glucose 95 mg/dL (65-115); Osmolality Calculated 287 mOsm/kg (285-295); Potassium 3.9 mmol/L (3.5-5.1); Sodium 137 mmol/L (136-145)
[2021-09-19] MEDS: quetiapine 100 mg Tablet 200 MG PO (06:15)
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
[2021-09-19 08:00] VITALS: BP 124/85; PULSE 93; RESP 18; TEMP 36.7; O2SAT 95
[2021-09-19] MEDS: thiamine 100 mg Tablet PO (08:27)
[2021-09-19] MEDS: multivitamin therapeutic Tablet 1 TAB PO (08:27)
[2021-09-19] MEDS: folic acid 1 mg Tablet PO (08:27)
[2021-09-19] MEDS: pantoprazole DR 40 mg Tablet PO (08:28)
[2021-09-19 08:53] VITALS: PULSE 86; RESP 18; O2SAT 97
--- NOTE | 2021-09-19 10:59 | PM.PN ---
Subjective Subjective: No acute events overnight. Patient denies any cough, chest pain, difficulty in breathing. Has maintained hemodynamically and has remained afebrile. Plan to be discharged by psychiatric team today. Vitals/I&O/Wt Last Vital Signs Temp 98.0 F 09/19/21 08:00 Pulse 86 09/19/21 08:53 Resp 18 09/19/21 08:53 BP 124/85 09/19/21 08:00 Pulse Ox 97 09/19/21 08:53 09/18/21 09/19/21 09/19/21 22:59 06:59 14:59 Intake Total 720 / 1440 480 / 1920 Balance 720 / 1440 480 / 1920 Physical Exam Narrative: General exam is a white male, no distress HEENT: Pupils equally round. Oropharynx clear. Neck is supple no lymphadenopathy thyromegaly Cardiovascular regular rate and rhythm without murmur Lungs clear bilaterally. Left with diminished breath sounds. Abdomen is soft nontender positive bowel sounds. No obvious organomegaly Extremities no cyanosis clubbing or edema, cap refill brisk Skin no rash Neuro no obvious focal deficits. Data : 09/19/21 04:16 09/19/21 04:16 A&P Assessment and plan (1) Suicidal ideation: Presented with suicidal ideation Management as per psychiatric team. Status: Acute (2) Ribs, multiple fractures: Incentive spirometry, flutter valve. Keep saturation over 91%. Repeat chest x-ray tomorrow morning. Appreciate cardiothoracic surgery consultation Status: Acute (3) Pneumothorax: See above Status: Acute (4) Alcohol use disorder, severe, dependence: Monitor for any withdrawal Status: Acute (5) Bipolar 1 disorder, manic, mild: As per psychiatry Status: Acute Plan Full code SCDs for DVT prophylaxis while in bed. On discharge advised to follow-up with primary care provider within next 1 week. Continue with incentive spirometry at least 3 times a day for next 2 to 3 weeks. Advised in detail if he has any difficulty in breathing, dizziness or chest pain to come to ER. Also advised in detail to follow-up with psychiatry recommendations in detail. All the questions were answered. Attestations Medical Necessity Statement*: As per psychiatric team. Time Spent in Patient Care: 16 - 35 minutes Coding Level of Care Code Acute Cloth Bin Packer for [facility] Fwpatricia Diagnoses Suicidal ideation R45.851 Ribs, multiple fractures S22.49XA Pneumothorax J93.9 Alcohol use disorder, severe, dependence F10.20 Bipolar 1 disorder, manic, mild F31.11
[2021-09-19 12:00] VITALS: BP 125/81; PULSE 94; RESP 18; TEMP 36.6; O2SAT 96
[2021-09-19 13:33] VITALS: BP 125/81; PULSE 94; RESP 18; TEMP 36.6; O2SAT 96
--- NOTE | 2021-09-19 13:54 | PC.NURSE ---
PT WAS TAKEN DOWN TO THE MAIN ENTRANCE, [facility] WAS TO BE PICKING HIM. PT TOOK OFF WALKING WITH HIS .
== END 2021-09-19 13:35 | disposition home or self-care (01) | DRG 885 ==
LOC: ER 09-14 07:20 → ICU 09-14 09:58 → CSU 09-15 07:11 → MEDSURG 09-16 00:28
PROVIDERS: Emergency Medicine; Internal Medicine; Admitting Provider Psychiatry & Neurology Psychiatry; Emergency Provider Family Medicine; Visit Provider Psychiatry & Neurology Psychiatry
DX: F31.9 Bipolar disorder, unspecified (principal); S22.42XA Multiple fractures of ribs, left side, initial encounter for closed fracture; R45.851 Suicidal ideations; J93.9 Pneumothorax, unspecified; J90 Pleural effusion, not elsewhere classified; F10.20 Alcohol dependence, uncomplicated; F15.10 Other stimulant abuse, uncomplicated; F41.9 Anxiety disorder, unspecified; F43.25 Adjustment disorder with mixed disturbance of emotions and conduct; F17.210 Nicotine dependence, cigarettes, uncomplicated; Y35.811A Legal intervention involving manhandling, law enforcement official injured, initial encounter; Z81.1 Family history of alcohol abuse and dependence
CPT/HCPCS: 36415; 71045; 71260; 80048; 80053; 80306; 80307; 81003; 84443; 84484; 85025; 87635; 93005; 94640; 96374; 96375; 99285; J1885; J2060; J2270; Q9967

== ENCOUNTER 2021-11-01 15:32 | Emergency (ER) | payer MEDICAID, SELFPAY ==
--- NOTE | 2021-11-01 15:50 | ECG_ITS ---
[facility] Test Date: 2021-11-01 Pat Name: Israel Gordon Department: Room: Gender: Male Humanities Instructor: : 1975 Requested By: David Kendrick Order Number: [id number] Yeni MD: Jesus Tellez M.D. Measurements Intervals Har[place]inger Rate: 106 P: 46 CA: 134 QRS: 65 QRSD: 83 T: 66 QT: 322 QTc: 429 Interpretive Statements SINUS TACHYCARDIA ABNORMAL RHYTHM ECG Compared to ECG 09/14/2021 01:43:09 Atrial fibrillation no longer present T-wave abnormality no longer present Possible ischemia no longer present Electronically Signed On 11-01-2021 19:45:01 CDT by Jesus Tellez M.D. [id number]
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
[2021-11-01 15:56] VITALS: BP 122/78; PULSE 111; RESP 18; TEMP 36.6; O2SAT 94
[2021-11-01 16:28] LABS: Basophils % 0.4 %; Eosinophils # 0.2 10^3/uL (0.0-0.8); Eosinophils % 3.6 %; Hematocrit 46.6 % (42.0-52.0); Hemoglobin 15.5 g/dL (11.7-16.6); Lymphocytes # 2.3 10^3/uL (0.8-4.8); Lymphocytes % 43.9 %; Mean Corpuscular HGB Conc 33.3 g/dL (30.0-36.0); Mean Corpuscular Hemoglobin 35.9 pg (28.0-34.0); Mean Corpuscular Volume 107.9 fl (80-94); Monocytes # 0.4 10^3/uL (0.2-0.9); Monocytes % 8.3 %; Neutrophils # 2.33 10^3/uL (1.8-7.7); Neutrophils % 43.6 %; Nucleated Red Blood Cells % 0 %; Platelet Count 410 10^3/cmm (130-400); Red Blood Count 4.32 10^6/uL (4.1-5.3); Red Cell Distribution Width 12.3 % (12.1-15.1); White Blood Count 5.3 10^3/uL (4.0-10.0)
[2021-11-01 17:05] LABS: Amphetamines Screen Urine Negative (Negative); Barbiturates Screen Urine Negative (Negative); Benzodiazepines Screen Urine Positive (Negative); Cocaine Screen Urine Negative (Negative); Opiate Screen Urine Negative (Negative); PCP Screen Urine Negative (Negative); THC Screen Urine Negative (Negative)
[2021-11-01 17:20] LABS: Alanine Aminotransferase 18 U/L (0-41); Albumin Level 4.3 g/dL (3.5-5.2); Alcohol Level 204 mg/dL (0-10); Alkaline Phosphatase 118 IU/L (40-130); Aspartate Amino Transferase 17 U/L (0-40); Blood Urea Nitrogen 10 mg/dL (6-20); Calcium 8.6 mg/dL (8.5-10.5); Carbon Dioxide 22 mmol/L (22-29); Chloride 108 mmol/L (98-107); Free T4 Free Thyroxine 1.14 ng/dL (0.82-1.77); Globulin 3.7 g/dL (1.3-4.6); Glomerular Filtration Rate 91.3 mL/min (90-130); Glucose 108 mg/dL (65-115); Osmolality Calculated 300 mOsm/kg (285-295); Sodium 145 mmol/L (136-145); Thyroid Stimulating Hormone 0.52 uIU/mL (0.27-4.20); Total Bilirubin 0.2 mg/dL (0.15-1.2)
[2021-11-01 17:23] LABS: Acetaminophen < 5.0 ug/mL (10-30); Salicylate < 0.3 mg/dL (3-10)
[2021-11-01 17:38] LABS: SARS Covid-2 Antigen Negative (Negative)
[2021-11-01] MEDS: LORazepam 2 mg Tablet PO (18:39)
[2021-11-01 18:45] VITALS: BP 119/70; PULSE 102; RESP 18; TEMP 36.6; O2SAT 96
--- NOTE | 2021-11-01 19:15 | PC.NURSE ---
190 Assumed pt care from Sarah GROSSMAN
[2021-11-02] VITALS: BP 112/70; PULSE 96; RESP 18; O2SAT 96
[2021-11-02 01:17] LABS: Add Urine Microscopic? NO; Charge for UA Resulting for Rev
[2021-11-02 01:22] LABS: Bilirubin Urine Neg (Negative); Blood Urine Neg (Negative); Glucose Urine UA Norm (Normal); Ketones Urine Negative (Negative); Leukocyte Esterase Urine Negative (Negative); Nitrate Urine Negative (Negative); Protein Urine Neg (Negative); Urine Appearance Clear (CLEAR); Urine Color Yellow (Yellow); Urobilinogen Urine Norm (Negative); pH Urine 5 (5-7)
[2021-11-02 02:45] VITALS: BP 115/76; PULSE 84; RESP 18; O2SAT 96
[2021-11-02 05:45] VITALS: BP 103/71; PULSE 85; RESP 20; O2SAT 95
--- NOTE | 2021-11-02 05:59 | PC.NURSE ---
2100 Pt watching tv resting comfortably with intermit dozing off.
--- NOTE | 2021-11-02 06:00 | PC.NURSE ---
2300 Pt sleeping restfully No distress at this time
--- NOTE | 2021-11-02 06:00 | PC.NURSE ---
0530 Pt sleeping arouses easily. He is awaiting transfer to [place] via EMS
--- NOTE | 2021-11-02 07:17 | PC.NURSE ---
Shift report received. Pt resting in bed, eyes closed, resp even and unlabored. Care assumed.
[2021-11-02 09:43] VITALS: BP 128/87; PULSE 75; RESP 13; O2SAT 99
[2021-11-02] MEDS: LORazepam 2 mg Tablet PO (09:43)
== END 2021-11-02 09:42 ==
PROVIDERS: Emergency Medicine; Physician Assistant; Emergency Provider Emergency Medicine
DX: R45.851 Suicidal ideations (principal); R45.850 Homicidal ideations
CPT/HCPCS: 71045; 80053; 80306; 80307; 81003; 84439; 84443; 85025; 87426; 93005; 99284

== ENCOUNTER 2021-12-06 22:53 | Emergency (ER) | payer MEDICAID, SELFPAY ==
[2021-12-06 22:55] VITALS: BP 150/82; PULSE 122; RESP 20; TEMP 37.4; O2SAT 96; BMI 22.9
--- NOTE | 2021-12-07 01:04 | ED.C_ITS ---
HPI - Psych General: Chief Complaint: Psychiatric Symptoms Stated Complaint: foot & back pain/homicidal & suicidal thoughts Time Seen by Provider: 12/06/21 23:03 Source: patient Mode of arrival: ambulatory Limitations: no limitations History of Present Illness: 46-year-old male who came in by ambulance originally for foot pain and back pain due to walking but was in the waiting room and left and went to local liquor store and has been drinking heavily patient came back he is intoxicated he states that he has had increased depression due to fighting with his denies any suicidal plans denies any worsening improving factors. Associated symptoms: Reports depression Review of Systems Const: Denies: fever(s), chills, body aches or change in appetite Eyes: Denies: blurry vision or eye discomfort ENMT: Denies: throat pain or dental pain Card: Denies: chest pain Resp: Denies: dyspnea GI: Denies: abdominal pain, nausea, vomiting or diarrhea : Denies: dysuria Musc: Denies: neck pain or back pain Skin/Breast: Denies: rash Neuro: Denies: headache(s) Psych: Reports: depression Byron/Lymph: Denies: easy bruising All/Imm: Denies: urticaria PFSH ED PFSH: Medical History Adjustment disorder with mixed disturbance of emotions and conduct Alcohol use disorder -Has known history of alcohol abuse&DT Bipolar 1 disorder, manic, mild Depressive disorder, not elsewhere classified Methamphetamine abuse -UDS positive for amphetamines/THC Psychiatric care Psychiatric care Surgical History H/O hernia repair History of appendectomy Family History Other Alcoholism /alcohol abuse Social History Quit status (tobacco): has tried quititng Number of times tried to quit tobacco: 4 Second hand smoke exposure: Yes Alcohol intake: current Current gender identity: Male Physical Exam Const: COMMON NORMALS: no acute distress, patient oriented x3 and healthy appearing GENERAL APPEARANCE: odor of alcohol detected HENMT: COMMON NORMALS: normocephalic and atraumatic HEAD & SCALP: normocephalic and atraumatic Eye: COMMON NORMALS: Equal, round and reactive pupils present and EOMs intact bilaterally PUPIL: Yes Equal, round and reactive pupils present Neck/C-Spine: COMMON NORMALS: full ROM and supple Chest: COMMONS NORMALS: normal inspection of the chest and normal palpation of entire chest wall Resp: COMMON NORMALS: normal respiratory effort, No retractions, No use of accessory muscles and clear to auscultation bilaterally AUSCULTATION: clear to auscultation bilaterally Cardio: COMMON NORMALS: regular rate, regular rhythm and No murmurs present (Cardio) RATE: regular rate RHYTHM: regular rhythm GI: COMMON NORMALS: Normal to inspection, nondistended, normoactive bowel sounds present, Soft to palpation, non-tender and no masses PALPATION: Yes Soft to palpation Extremity: COMMON NORMALS: normal to inspection and full ROM Neuro: COMMON NORMALS: patient oriented x3, moves all extremities and no focal motor deficits Psych: COMMON NORMALS: mental status grossly normal, Normal thought process present and cooperative THOUGHT PROCESS: Normal thought process present Skin: COMMON NORMALS: no rashes or lesions noted and no wounds GENERAL SKIN EXAM: no rashes or lesions noted Course Vital Signs: Vital signs: Vital Signs Temperature 99.3 F 12/06/21 22:55 Pulse Rate 91 12/07/21 05:14 Respiratory Rate 18 12/07/21 05:14 Blood Pressure 114/67 12/07/21 05:14 Pulse Oximetry 94 12/07/21 05:14 [facility] - Psych Medical Decision Making Patient presents with alcohol intoxication he originally had made some statements that he may harm himself but never had any specific plan. Outpatient sober he denies being suicidal I did speak to Dr. Em who knows patient very well and he is stable for discharge he is to follow-up with PCP and return if worsening he understands agrees to plan. Discharge Plan Discharge Patient Disposition: Home Clinical Impression: Alcohol intoxication Qualifiers: Complication of substance-induced condition: uncomplicated Qualified Code(s): F10.920 - Alcohol use, unspecified with intoxication, uncomplicated Condition: Stable Prescriptions: No Action pantoprazole 40 mg Tablet,Delayed Release (Dr/Ec) 40 mg PO DAILY 30 Days Qty: 30 1RF albuterol sulfate 90 mcg/actuation Hfa Aerosol Inhaler 2 puff INHALATION Q6H PRN (Reason: Shortness Of Breath) 0RF trazodone 50 mg Tablet 50 mg PO BEDTIME PRN (Reason: Sleep) 30 Days Qty: 30 1RF quetiapine 100 mg Tablet 200 mg PO 0700,2100 30 Days Qty: 120 1RF fluoxetine 20 mg Capsule 80 mg PO DAILY 30 Days Qty: 120 1RF hydroxyzine pamoate 25 mg Capsule 50 mg PO BID PRN (Reason: Anxiety) 30 Days Qty: 120 1RF lurasidone 40 mg tablet 40 mg PO 1700 30 Days Qty: 30 1RF Discharge Orders: Discharge ED (Routine); Ordered 12/07/21 Ordered By: Fransisco Berry Discharge Diet: Advance as tolerated Discharge Activity: Resume usual activity Patient Instructions: Abuse of Alcohol (ED) Coding Level of Care Code ED [employer] for Camila Alvares Exam Comprehensive
[2021-12-07] MEDS: acetaminophen 325 mg Tablet 650 MG PO (05:06)
[2021-12-07 05:14] VITALS: BP 114/67; PULSE 91; RESP 18; O2SAT 94
== END 2021-12-07 05:22 | disposition home or self-care (01) ==
PROVIDERS: Emergency Provider Emergency Medicine
DX: F10.929 Alcohol use, unspecified with intoxication, unspecified (principal); Y90.9 Presence of alcohol in blood, level not specified
CPT/HCPCS: 96372; 99284; J3411

== ENCOUNTER 2022-04-11 08:11 | Emergency (ER) | payer MEDICAID, SELFPAY ==
[2022-04-11 08:13] VITALS: BP 135/93; PULSE 107; RESP 17; TEMP 36.8; O2SAT 95
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
--- NOTE | 2022-04-11 08:56 | PC.PHAR ---
pt states he takes care of his own medications-pt has albuterol inhaler-hydroxyzine pamoate 50mg bid prn and pantoprazole 40mg daily ready to be picked up at [facility] filled on 04/04/22-pt states he hasnt taken cymbalta 60mg and 20mg daily in 4 months [facility] states they have rx on hold from 10/05/21 for the pt-pt states he still takes lurasidone 40mg daily states sometimes he will double up on them ext med history shows last filled 11/30/21 30d/s [facility] states they have rx on hold [facility] states last filled september 2021 and has a refill-pt states he stop taking quetiapine 200mg for his [facility] last filled september 2021 200mg bid has refills [facility] has rx on hold from 10/05/21 for 200mg hs-pt states he no longer takes trazodone 50mg hs prn [facility] last filled september 2021 rx has refill-pt states he takes 5-6 tabs q6h prn of benadryl to help with his anxiety-notes are made in the pharmacy comments
[2022-04-11 09:17] LABS: Basophils % 0.3 %; Eosinophils # 0.1 10^3/uL (0.0-0.8); Eosinophils % 1.5 %; Hematocrit 52.4 % (42.0-52.0); Hemoglobin 17.9 g/dL (11.7-16.6); Lymphocytes # 2.4 10^3/uL (0.8-4.8); Lymphocytes % 35.3 %; Mean Corpuscular HGB Conc 34.2 g/dL (30.0-36.0); Mean Corpuscular Hemoglobin 37.6 pg (28.0-34.0); Mean Corpuscular Volume 110.1 fl (80-94); Mean Platelet Volume 9.4 fL (7.4-10.4); Monocytes # 0.6 10^3/uL (0.2-0.9); Monocytes % 9.5 %; Neutrophils # 3.56 10^3/uL (1.8-7.7); Neutrophils % 53.1 %; Nucleated Red Blood Cells % 0 %; Platelet Count 281 10^3/cmm (130-400); Red Blood Count 4.76 10^6/uL (4.1-5.3); Red Cell Distribution Width 14.2 % (12.1-15.1); White Blood Count 6.7 10^3/uL (4.0-10.0)
[2022-04-11 09:23] LABS: Amphetamines Screen Urine Negative (Negative); Barbiturates Screen Urine Negative (Negative); Benzodiazepines Screen Urine Negative (Negative); Cocaine Screen Urine Negative (Negative); Opiate Screen Urine Negative (Negative); PCP Screen Urine Negative (Negative); THC Screen Urine Negative (Negative)
[2022-04-11 09:46] LABS: Alanine Aminotransferase 69 U/L (0-41); Albumin Level 4.5 g/dL (3.5-5.2); Alcohol Level 269 mg/dL (0-10); Alkaline Phosphatase 101 U/L (40-130); Anion Gap 17.7 (5-19); Aspartate Amino Transferase 70 U/L (0-40); Blood Urea Nitrogen 6 mg/dL (6-20); Calcium 8.9 mg/dL (8.5-10.5); Carbon Dioxide 25 mmol/L (22-29); Chloride 104 mmol/L (98-107); Creatinine Clr Calc Pharmacy 133.8588; Globulin 3.7 g/dL (1.3-4.6); Glucose 96 mg/dL (65-115); Osmolality Calculated 293 mOsm/kg (285-295); Potassium 3.7 mmol/L (3.5-5.1); Sodium 143 mmol/L (136-145); Total Bilirubin 0.3 mg/dL (0.15-1.2); Total Protein 8.2 g/dL (6.6-8.7)
[2022-04-11 10:04] LABS: Acetaminophen < 5.0 ug/mL (10-30); Salicylate < 0.3 mg/dL (3-10)
[2022-04-11 10:41] VITALS: BP 147/102; PULSE 115; O2SAT 99
--- NOTE | 2022-04-11 12:54 | DCPLANNER ---
Addendum entered by Hilda Blancas 04/23/22 16:34: continuum of care manager received the following message from [facility] regarding followup appointment: Emailing Radha to please call for request for services. [facility] Scheduling removed from item. On 04/12/22 @ 09:36 Hilda Blancas Wrote To [facility] Scheduling no he was gone by the time I made the referral On 04/11/22 @ 13:11 Toyin Carpenter Wrote To Hilda Blancas is he still there? On 04/11/22 @ 12:49 Hilda Blancas Wrote To [facility] Scheduling Ludin Gordon - 78 - was seen in the ER on 04.11.[address] Morocho being referred to [facility] to reinitiate medications. Original Note: continuum of care manager had message to schedule a follow up appointment for patient with C. continuum of care manager sent patients information to the scheduling staff at [facility]. Patients information will be reviewed. Clinic will call patient with appointment information.
== END 2022-04-11 10:45 | disposition home or self-care (01) ==
PROVIDERS: Emergency Provider Family Medicine
DX: F10.120 Alcohol abuse with intoxication, uncomplicated (principal); Y90.8 Blood alcohol level of 240 mg/100 ml or more; F31.11 Bipolar disorder, current episode manic without psychotic features, mild
CPT/HCPCS: 80053; 80306; 80307; 85025; 99285

== ENCOUNTER 2022-05-11 00:08 | Emergency (ER) | payer MEDICAID, SELFPAY ==
[2022-05-11 00:11] VITALS: BMI 21.5
[2022-05-11 00:17] VITALS: BP 138/93; PULSE 103; TEMP 36.8; O2SAT 96
--- NOTE | 2022-05-11 00:18 | ECG_ITS ---
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 Measurements Intervals [place] Rate: 114 P: 50 WA: 145 QRS: 57 QRSD: 88 T: 67 QT: 314 QTc: 433 Interpretive Statements SINUS TACHYCARDIA ABNORMAL RHYTHM ECG Compared to ECG 11/01/2021 15:56:57 No significant changes Electronically Signed On 05-11-2022 13:10:47 [employer] by Ban Alvarez M.D. [email or web address] other things you [id number]
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
[2022-05-11 01:02] LABS: Alanine Aminotransferase 32 U/L (0-41); Albumin Level 4.1 g/dL (3.5-5.2); Alkaline Phosphatase 106 U/L (40-130); Anion Gap 15.9 (5-19); Aspartate Amino Transferase 29 U/L (0-40); Blood Urea Nitrogen 12 mg/dL (6-20); Calcium 8.8 mg/dL (8.5-10.5); Carbon Dioxide 24 mmol/L (22-29); Chloride 105 mmol/L (98-107); Creatinine Clr Calc Pharmacy 133.8588; Glucose 87 mg/dL (65-115); Osmolality Calculated 291 mOsm/kg (285-295); Potassium 3.9 mmol/L (3.5-5.1); Sodium 141 mmol/L (136-145); Total Bilirubin 0.2 mg/dL (0.15-1.2); Total Protein 8.1 g/dL (6.6-8.7)
[2022-05-11 01:13] LABS: Basophils % 0.3 %; Eosinophils # 0.2 10^3/uL (0.0-0.8); Eosinophils % 3.1 %; Hematocrit 48.6 % (42.0-52.0); Hemoglobin 16.1 g/dL (11.7-16.6); Lymphocytes # 1.7 10^3/uL (0.8-4.8); Lymphocytes % 26.6 %; Mean Corpuscular HGB Conc 33.1 g/dL (30.0-36.0); Mean Corpuscular Hemoglobin 37.7 pg (28.0-34.0); Mean Corpuscular Volume 113.8 fl (80-94); Mean Platelet Volume 8.9 fL (7.4-10.4); Monocytes # 0.4 10^3/uL (0.2-0.9); Monocytes % 6.8 %; Neutrophils % 62.9 %; Nucleated Red Blood Cells % 0 %; Platelet Count 244 10^3/cmm (130-400); Red Blood Count 4.27 10^6/uL (4.1-5.3); Red Cell Distribution Width 13.3 % (12.1-15.1); White Blood Count 6.5 10^3/uL (4.0-10.0)
[2022-05-11 01:15] LABS: Acetaminophen < 5.0 ug/mL (10-30); Salicylate < 0.3 mg/dL (3-10)
[2022-05-11 01:21] LABS: Amphetamines Screen Urine Negative (Negative); Barbiturates Screen Urine Negative (Negative); Benzodiazepines Screen Urine Negative (Negative); Cocaine Screen Urine Negative (Negative); Opiate Screen Urine Negative (Negative); PCP Screen Urine Negative (Negative); THC Screen Urine Negative (Negative)
[2022-05-11 01:25] LABS: Alcohol Level 317 mg/dL (0-10)
[2022-05-11 01:28] LABS: SARS Covid-2 Antigen negative (Negative)
[2022-05-11 05:27] LABS: Alcohol Level 182 mg/dL (0-10)
--- NOTE | 2022-05-11 08:30 | PC.PHAR ---
PT WAS ABLE TO VERIFY SOME OF HIS MEDICATIONS- CALLED [facility] IN [facility] TO VERIFY LAST FILLED AND PICKED UP
[2022-05-11 11:55] VITALS: BP 147/97; PULSE 83; RESP 12; TEMP 36.4; O2SAT 98
[2022-05-11 13:25] VITALS: BP 147/97; PULSE 83; RESP 12; TEMP 36.4; O2SAT 98
== END 2022-05-11 13:24 | disposition home or self-care (01) ==
PROVIDERS: Emergency Medicine; Emergency Provider Family Medicine
DX: F43.25 Adjustment disorder with mixed disturbance of emotions and conduct (principal); F10.129 Alcohol abuse with intoxication, unspecified; Y90.6 Blood alcohol level of 120-199 mg/100 ml; F31.11 Bipolar disorder, current episode manic without psychotic features, mild; R45.851 Suicidal ideations; Z63.0 Problems in relationship with spouse or partner; Z20.822 Contact with and (suspected) exposure to COVID-19
CPT/HCPCS: 70450; 80053; 80306; 80307; 85025; 87426; 93005; 99285

== ENCOUNTER 2022-11-15 20:36 | Inpatient (IN) | payer MEDICAID, SELFPAY ==
[2022-11-15 20:40] VITALS: BP 119/76; PULSE 163; RESP 16; TEMP 36.6; O2SAT 97; BMI 24.3
--- NOTE | 2022-11-15 20:41 | W.ED.OVERDOS ---
HPI - Overdose General: Chief Complaint: Overdose Stated Complaint: OD Time Seen by Provider: 11/15/22 20:41 Limitations: altered mental status History of Present Illness: 47-year-old gentleman presenting by EMS for altered mental status. The patient provides essentially no meaningful clinical history. Per EMS report he seemed confused and endorsed taking methamphetamine and drinking alcohol. They thought he was in SVT and administered 250 cc of fluid, 6 mg adenosine, and cardioverted at 120 J without significant improvement. History is otherwise limited by mental status. Review of Systems General: Reports: ROS unobtainable due to mental status PFSH ED PFSH: Medical History Adjustment disorder with mixed disturbance of emotions and conduct Alcohol use disorder -Has known history of alcohol abuse&DT Bipolar 1 disorder, manic, mild Depressive disorder, not elsewhere classified Methamphetamine abuse -UDS positive for amphetamines/THC Surgical History H/O hernia repair History of appendectomy Family History Other Alcoholism /alcohol abuse Social History Quit status (tobacco): has tried quititng Number of times tried to quit tobacco: 4 Second hand smoke exposure: Yes Alcohol intake: current Substance/Drug Use: current Current gender identity: Male Physical Exam Const: COMMON NORMALS: alert GENERAL APPEARANCE: well developed and ill appearing HENMT: COMMON NORMALS: normocephalic and atraumatic HEAD & SCALP: normocephalic and atraumatic OTHER: No gu signs or raccoon eyes. No otorrhea or rhinorrhea. Jaw alignment normal. Dentition baseline. No obvious bony step-offs. No septal hematoma. No evidence of ocular entrapment. Eye: COMMON NORMALS: conjunctivae normal CONJUNCTIVA: Yes conjunctivae normal SCLERA: sclerae normal Neck/C-Spine: COMMON NORMALS: supple and no meningeal signs GENERAL: Yes trachea midline Resp: COMMON NORMALS: clear to auscultation bilaterally EFFORT & INSPECTION: Yes able to speak in complete sentences AUSCULTATION: clear to auscultation bilaterally Cardio: RATE: tachycardic RHYTHM: abnormal rhythm irregularly irregular GI: COMMON NORMALS: Soft to palpation PALPATION: Yes Soft to palpation and No Tenderness to palpation present (GI) Extremity: GENERAL: Yes normal exam except as noted and No edema Neuro: COMMON NORMALS: moves all extremities SENSORIUM/ORIENTATION: Yes alert and No Orientation impaired MENINGEAL SIGNS: Yes no meningeal signs Psych: ATTENTION/CONCENTRATION: Yes attention grossly impaired Course Vital Signs: Vital signs: Vital Signs Temperature 97 F L 11/16/22 05:00 Pulse Rate 97 11/16/22 05:00 Respiratory Rate 24 H 11/16/22 05:00 Blood Pressure 102/69 11/16/22 05:00 Pulse Oximetry 90 11/16/22 05:00 Oxygen Delivery Me thod Room Air 11/16/22 01:40 MDM - Overdose Medical Decision Making 47-year-old gentleman presenting to the emergency department with altered mental status with reported clinical history of amphetamine and alcohol intoxication. Patient appears alert and protecting airway however provides no meaningful clinical history as he has significantly altered mental status. No evidence of trauma. Prehospital treatments including small fluid bolus, adenosine, cardioversion without significant improvement in heart rate. EKG notable for atrial fibrillation with rapid ventricular response. Patient given IV fluids and benzodiazepines for suspected sympathomimetic toxicity based on provided clinical history. Labs notable for minimal leukocytosis, normal hemoglobin and platelet count. Metabolic panel with hypokalemia and evidence of mild metabolic stress including decreased bicarb and increased anion gap suspected to be secondary to toxic ingestion. Salicylate, acetaminophen, and ethyl alcohol level are negative. Additional treatments for persistently elevated heart rate included a total of 3 L of crystalloid and additional 2 mg boluses of benzodiazepine. Patient's mental status improved though continues to have altered mental status. No focality or meningismus on serial reassessment. After 3 L fluid bolus no evidence of heart failure or gross fluid overload. Feel that patient is at least euvolemic and subsequently shifted efforts to possibility of rate control. Given concern for sympathomimetic toxicity I favored calcium channel arturo trial over beta-arturo. Attempted to push doses of Cardizem without significant/sustained improvement in heart rate, perhaps slowed heart rate 10 bpm. Rhythm appears to continue to be atrial fibrillation. Chest x-ray with no lobar consolidation or pneumothorax. Head CT without acute intracranial pathology. Urine drug screen pending at time of admission. The results of ED evaluation were discussed with the patient including plan for admission due to requirement for level of care not available if discharged to prevent significant worsening/deterioration. Patient agreeable with plan. Discussed with hospitalist service who was agreeable to admit patient. Subsequently discussed case with cardiology and we will trial amiodarone. Patient to be admitted for suspected sympathomimetic toxicity to ICU. Medical Records I reviewed the patient's medical records. Lab Data I reviewed the patient's lab results. 11/15/22 21:06 11/15/22 21:06 Radiology Impressions Chest X-Ray 11/15/22 20:44 IMPRESSION: No acute findings. Head CT 11/15/22 22:23 IMPRESSION: No acute intracranial abnormality. Laboratory Results WBC 10.9 10^3/uL (4.0-10.0) H 11/15/22 21:06 RBC 4.21 10^6/uL (4.1-5.3) 11/15/22 21:06 Hgb 15.2 g/dL (11.7-16.6) 11/15/22 21:06 Hct 44.2 % (42.0-52.0) 11/15/22 21:06 MCV 105.0 fl (80-94) H 11/15/22 21:06 MCH 36.1 pg (28.0-34.0) H 11/15/22 21:06 MCHC 34.4 g/dL (30.0-36.0) 11/15/22 21:06 RDW 12.5 % (12.1-15.1) 11/15/22 21:06 Plt Count 258 10^3/cmm (130-400) 11/15/22 21:06 MPV 9.4 fL (7.4-10.4) 11/15/22 21:06 Neut % (Auto) 79.1 % 11/15/22 21:06 Lymph % (Auto) 11.4 % 11/15/22 21:06 [place] % (Auto) 9.1 % 11/15/22 21:06 Eos % (Auto) 0.0 % 11/15/22 21:06 Baso % (Auto) 0.1 % 11/15/22 21:06 Neut # (Auto) 8.63 10^3/uL (1.8-7.7) H 11/15/22 21:06 Lymph # (Auto) 1.2 10^3/uL (0.8-4.8) 11/15/22 21:06 [place] # (Auto) 1.0 10^3/uL (0.2-0.9) H 11/15/22 21:06 Eos # (Auto) 0.0 10^3/uL (0.0-0.8) 11/15/22 21:06 Baso # (Auto) 0.0 10^3/uL (0.0-0.1) 11/15/22 21:06 Nucleated RBC % (auto) 0 % 11/15/22 21:06 Nucleated RBCs # 0.0 /100WBC 11/15/22 21:06 Sodium 139 mmol/L (136-145) 11/15/22 21:06 Potassium 3.2 mmol/L (3.5-5.1) L 11/15/22 21:06 Chloride 99 mmol/L (98-107) 11/15/22 21:06 Carbon Dioxide 20 mmol/L (22-29) L 11/15/22 21:06 Anion Gap 23.2 (5-19) H 11/15/22 21:06 BUN 16 mg/dL (6-20) 11/15/22 21:06 Creatinine 0.9 mg/dL (0.7-1.2) 11/15/22 21:06 GFR Calculation 90.8 mL/min (90-130) 11/15/22 21:06 Glucose 82 mg/dL (65-115) 11/15/22 21:06 POC Glucose 83 mg/dL (70-110) 11/15/22 21:18 Calculated Osmolality 288 mOsm/kg (285-295) 11/15/22 21:06 Calcium 9.1 mg/dL (8.5-10.5) 11/15/22 21:06 Magnesium 2.0 mg/dL (1.7-2.3) 11/15/22 21:06 Total Bilirubin 0.8 mg/dL (0.15-1.2) 11/15/22 21:06 AST 28 U/L (0-40) 11/15/22 21:06 ALT 24 U/L (0-41) 11/15/22 21:06 Alkaline Phosphatase 79 U/L (40-130) 11/15/22 21:06 Total Protein 7.6 g/dL (6.6-8.7) 11/15/22 21:06 Albumin 4.3 g/dL (3.5-5.2) 11/15/22 21:06 Globulin 3.3 g/dL (1.3-4.6) 11/15/22 21:06 TSH 1.80 uIU/mL (0.27-4.20) 11/15/22 21:06 Salicylates < 0.3 mg/dL (3-10) L 11/15/22 21:06 Acetaminophen < 5.0 ug/mL (10-30) L 11/15/22 21:06 Ethyl Alcohol < 10 mg/dL (0-10) 11/15/22 21:06 Critical Care Time Critical Care Time: Critical Care Time: Yes Total Critical Care Time: 110 Attestation: Due to a high probability of clinically significant, possibly life threatening deterioration, the patient required my highest level of attention and preparedness to intervene emergently and I personally spent this critical care time directly and personally managing the patient. This critical care time included obtaining a history; examining the patient; pulse oximetry; ordering and review of laboratory and imaging studies; arranging urgent treatment with development of a management plan; evaluation of patient's response to treatment; frequent reassessment; and, discussions with other providers as applicable. It was exclusive of separately billable procedures. Primary system involved is toxicology Discharge Plan Discharge Patient Disposition: Admitted As Inpatient Admit Provider: Jacquie Mcelroy Clinical Impression: Acute alteration in mental status, Atrial fibrillation with RVR, Overdose of sympathomimetic agent, Hypokalemia Condition: Stable Coding Level of Care Code ED Photonics Engineer for Camila Alvares
--- NOTE | 2022-11-15 20:42 | ECG_ITS ---
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 Measurements Intervals [place] Rate: 173 P: 0 AL: 0 QRS: 66 QRSD: 101 T: 90 QT: 281 QTc: 477 Interpretive Statements ATRIAL FLUTTER WITH RAPID VENTRICULAR RESPONSE MINIMAL VOLTAGE CRITERIA FOR LVH, CONSIDER NORMAL VARIANT [MEETS CRITERIA IN ONE OF: R(aVL), S(V1), R(V5), R(V5/V6)+S(V1)] SEPTAL MYOCARDIAL INFARCTION , PROBABLY OLD [40+ ms Q WAVE IN V1/V2] Compared to ECG 05/11/2022 00:26:48 Myocardial infarct finding now present Sinus tachycardia no longer present Electronically Signed On 11-16-2022 8:43:20 CDT by Leon Mancuso M.D. [id number]
--- NOTE | 2022-11-15 20:44 | XRR_ITS ---
PROCEDURE INFORMATION: Exam: XR Chest Exam date and time: 11/15/2022 8:50 PM Age: 47 years old Clinical indication: Other: Tachycardia TECHNIQUE: Imaging protocol: Radiologic exam of the chest. Views: 1 view. COMPARISON: CR XR chest 1V portable [id number] 11/01/2021 4:23 PM FINDINGS: Lungs: Unremarkable. No consolidation. Pleural spaces: Unremarkable. No pleural effusion. No pneumothorax. Heart/Mediastinum: Unremarkable. No cardiomegaly. Bones/joints: Unremarkable. XR/XR chest 1V portable [id number] IMPRESSION: No acute findings.
[2022-11-15] MEDS: sodium chloride 0.9% 1,000 ML 999 ML IV ×2 (20:52→22:24)
[2022-11-15] MEDS: LORazepam 2 mg/mL INJ 1 mL IVP ×3 (20:55→23:37)
[2022-11-15 21:04] VITALS: BP 128/74; PULSE 178
[2022-11-15 21:22] LABS: Basophils % 0.1 %; Hematocrit 44.2 % (42.0-52.0); Hemoglobin 15.2 g/dL (11.7-16.6); Lymphocytes # 1.2 10^3/uL (0.8-4.8); Lymphocytes % 11.4 %; Mean Corpuscular HGB Conc 34.4 g/dL (30.0-36.0); Mean Corpuscular Hemoglobin 36.1 pg (28.0-34.0); Mean Platelet Volume 9.4 fL (7.4-10.4); Monocytes % 9.1 %; Neutrophils # 8.63 10^3/uL (1.8-7.7); Neutrophils % 79.1 %; Nucleated Red Blood Cells % 0 %; Platelet Count 258 10^3/cmm (130-400); Red Blood Count 4.21 10^6/uL (4.1-5.3); Red Cell Distribution Width 12.5 % (12.1-15.1); White Blood Count 10.9 10^3/uL (4.0-10.0)
[2022-11-15 21:29] VITALS: BP 126/83; PULSE 185; RESP 28; O2SAT 96
[2022-11-15] MEDS: dilTIAZem 5 mg/mL SDV 5 mL 15 MG IVP (21:36)
[2022-11-15 21:44] LABS: Alanine Aminotransferase 24 U/L (0-41); Albumin Level 4.3 g/dL (3.5-5.2); Alkaline Phosphatase 79 U/L (40-130); Anion Gap 23.2 (5-19); Aspartate Amino Transferase 28 U/L (0-40); Blood Urea Nitrogen 16 mg/dL (6-20); Calcium 9.1 mg/dL (8.5-10.5); Carbon Dioxide 20 mmol/L (22-29); Chloride 99 mmol/L (98-107); Globulin 3.3 g/dL (1.3-4.6); Glomerular Filtration Rate 90.8 mL/min (90-130); Glucose 82 mg/dL (65-115); Osmolality Calculated 288 mOsm/kg (285-295); Potassium 3.2 mmol/L (3.5-5.1); Sodium 139 mmol/L (136-145); Total Bilirubin 0.8 mg/dL (0.15-1.2); Total Protein 7.6 g/dL (6.6-8.7)
[2022-11-15 21:45] LABS: Acetaminophen < 5.0 ug/mL (10-30); Alcohol Level < 10 mg/dL (0-10); Salicylate < 0.3 mg/dL (3-10)
[2022-11-15] MEDS: lidocaine 1% 5 ML in potassium chloride premix 100 ML 26.25 ML IV (22:08)
--- NOTE | 2022-11-15 22:23 | CTR_ITS ---
PROCEDURE INFORMATION: Exam: CT Head Without Contrast Exam date and time: 11/15/2022 11:26 PM Age: 47 years old Clinical indication: Altered mental status/memory loss; Patient HX: Drug induced AMS. TECHNIQUE: Imaging protocol: Computed tomography of the head without contrast. Radiation optimization: All CT scans at this facility use at least one of these dose optimization techniques: automated exposure control; mA and/or kV adjustment per patient size (includes targeted exams where dose is matched to clinical indication); or iterative reconstruction. REPORTING DATA: Count of CT and Cardiac NM exams in prior 12 months: This patient has received [address] and 0 known cardiac nuclear medicine studies in the 12 months prior to the current study. COMPARISON: CT head wo con* [id number] 05/11/2022 12:47 AM RADIATION DOSE METRICS: Total DLP (mGy-cm): 951.54 FINDINGS: Brain: Normal. No hemorrhage. Unremarkable white matter. No mass effect. Cerebral ventricles: No ventriculomegaly. Paranasal sinuses: Visualized sinuses are unremarkable. No fluid levels. Mastoid air cells: Visualized mastoid air cells are well aerated. Bones/joints: Unremarkable. No acute fracture. Soft tissues: Unremarkable. CT/CT head wo con* [id number] IMPRESSION: No acute intracranial abnormality.
[2022-11-15] MEDS: dilTIAZem 5 mg/mL SDV 5 mL 20 MG IVP (22:24)
[2022-11-15 22:25] VITALS: BP 93/45; PULSE 169; RESP 30; O2SAT 97
[2022-11-15 23:01] VITALS: BP 93/48; PULSE 176; RESP 24; O2SAT 99
[2022-11-15 23:30] VITALS: BP 101/74; PULSE 177; RESP 33; O2SAT 96
[2022-11-16] VITALS (114 sets, daily range): BP systolic 83–122; BP diastolic 56–84; PULSE 71–177; RESP 5–52; TEMP 36.1–36.2; O2SAT 72–100; BMI 23.6
[2022-11-16 00:46] LABS: Amphetamines Screen Urine Positive (Negative); Barbiturates Screen Urine Negative (Negative); Benzodiazepines Screen Urine Positive (Negative); Cocaine Screen Urine Negative (Negative); Opiate Screen Urine Negative (Negative); PCP Screen Urine Negative (Negative); THC Screen Urine Negative (Negative)
[2022-11-16 01:36] LABS: Glucose Point of Care 83 mg/dL (70-110)
[2022-11-16] MEDS: sodium chloride 0.9% 500 ML 999 ML IV ×2 (02:18→04:08)
--- NOTE | 2022-11-16 02:35 | PC.NURSE ---
Patient arrived from ED AOx0. No verbal response except for groans. was spoken to on the phone and did not acknowledge prior knowledge of patient's meth use or events leading up to EMS picking up patient. Patient HR converted to 100-110 during Amiodarone bolus in ED. Patient exhibits SS of drug abuse/withdrawal including: perspirations, agitation, restlessness, flailing extremities.
--- NOTE | 2022-11-16 04:05 | PM.HP ---
Providers/Chief Complaint Admitting Physician: Jacquie Mcelroy MD Primary Care Provider: Chayito Cali MD Chief Complaint: OD History of Present Illness Ludin Gordon is a 47 year old male with h/o substance and alcohol abuse was BIB EMS with altered mental status. He was found to have atrial fibrillation with RVR of 210 in the field and received adenosine 6mg, cardioversion but with no relief. Unable to obtain any further history from the patient. He had multiple admissions in the past for alcohol intoxication, homicidal ideation and adjustment disorder. In ER he was still tachycardic at 179 with BP 84/52 post IV ativan, 3L bolus fluids and cardizem bolusx2. ER physician discussed with cardiology electronic systems technician and was started on amiodarone drip. Nurse reports calling the from ICU, who mentioned she did not know his condition. He has been currently taking only protonix and albuterol inhaler prn. Review of Systems Narrative: unable to obtain. Medications/Allergies Home Medications Medication Instructions Recorded Confirmed Last Taken Type diphenhydramine HCl 25 mg tablet 125 - 150 mg PO Q6H PRN Anxiety 04/11/22 10/03/22 Unknown History (Benadryl Allergy) lurasidone 40 mg tablet 40 mg PO DAILY 04/11/22 10/03/22 Unknown History chlordiazepoxide HCl 25 mg capsule 25 mg PO BEDTIME PRN Sleep 05/11/22 10/03/22 Unknown History duloxetine 60 mg capsule,delayed 60 mg PO DAILY 05/11/22 10/03/22 Unknown History release folic acid 1 mg tablet 1 mg PO DAILY 05/11/22 10/03/22 Unknown History hydroxyzine pamoate 50 mg capsule 50 mg PO Q6H PRN Anxiety 05/11/22 10/03/22 Unknown History lorazepam 2 mg capsule,extended 2 mg PO DAILY 05/11/22 10/03/22 Unknown History release 24 hr naltrexone 50 mg tablet 50 mg PO DAILY 05/11/22 10/03/22 Unknown History nicotine 21 mg/24 hr daily 1 patch transdermal DAILY 05/11/22 10/03/22 Unknown History transdermal patch propranolol 10 mg tablet 10 mg PO BID 05/11/22 10/03/22 Unknown History quetiapine 200 mg tablet 200 mg PO BEDTIME 05/11/22 10/03/22 Unknown History sertraline 50 mg tablet (Zoloft) 50 mg PO DAILY 05/11/22 10/03/22 Unknown History tamsulosin 0.4 mg capsule (Flomax) 0.4 mg PO BEDTIME 05/11/22 10/03/22 Unknown History thiamine HCl (vitamin B1) 50 mg 50 mg PO DAILY 05/11/22 10/03/22 Unknown History tablet (Vitamin B-1) trazodone 50 mg tablet 50 mg PO DAILY 05/11/22 10/03/22 Unknown History albuterol sulfate 90 mcg/actuation 2 inh inhalation Q6H #1 ea 10/03/22 10/03/22 Unknown Rx breath activated powder inhaler,sensor amoxicillin 875 mg-potassium 1 tab PO BID #20 tabs 10/03/22 10/03/22 Unknown Rx clavulanate 125 mg tablet fluticasone propionate 50 1 spray intranasal DAILY PRN 10/03/22 10/03/22 Unknown Rx mcg/actuation nasal allergy symptoms #16 grams spray,suspension pantoprazole 40 mg tablet,delayed 40 mg PO DAILY 30 days #30 tabs 10/03/22 10/03/22 Unknown Rx release Allergies Allergy/AdvReac Type Severity Reaction Status Date / Time No Known Allergies Allergy Verified 11/06/22 16:12 PFSH Acute PFSH: Medical History Adjustment disorder with mixed disturbance of emotions and conduct Alcohol use disorder -Has known history of alcohol abuse&DT Bipolar 1 disorder, manic, mild Depressive disorder, not elsewhere classified Methamphetamine abuse -UDS positive for amphetamines/THC Surgical History H/O hernia repair History of appendectomy Family History Other Alcoholism /alcohol abuse Social History Quit status (tobacco): has tried quititng Number of times tried to quit tobacco: 4 Second hand smoke exposure: Yes Alcohol intake: current Substance/Drug Use: current Current gender identity: Male Vitals/I&O/Wt Last Vital Signs Temp 97.1 F L 11/16/22 01:30 Pulse 107 H 11/16/22 02:58 Resp 17 11/16/22 02:30 BP 92/70 11/16/22 02:30 Pulse Ox 95 11/16/22 02:30 O2 Del Method Room Air 11/16/22 01:40 11/15/22 11/15/22 11/16/22 14:59 22:59 06:59 Intake Total 2708 / 2708 Balance 2708 / 2708 Weight last 48 hrs Weight 70.307 kg Weight 77.111 kg Physical Exam Narrative: Drowsy, confused, opening eyes to verbal and tactile stimuli , occasionally agitated. Chest clear to ascultation b/l CVS tachycardic, irregular heart sounds Abd-normaExt- no edema noted. Data 11/15/22 21:06 11/15/22 21:06 Micro: Microbiology 11/15/22 23:25 Blood Culture - Preliminary Blood SPECIMEN COLLECTED 11/15/22 23:23 Blood Culture - Preliminary Blood SPECIMEN COLLECTED CT Head: My impression: normal CXR: Radiologist's impression: no acute findings. EKG 1: My Interpretation: atrial fibrilltaion with rapid ventricular rate no acute ST-T changes EKG computer-generated impression: ATRIAL FLUTTER/TACHYCARDIA WITH RAPID VENTRICULAR RESPONSE MINIMAL VOLTAGE CRITERIA FOR LVH, CONSIDER NORMAL VARIANT? [MEETS CRITERIA IN ONE OF: R(aVL), S(V1), R(V5), R(V5/V6)+S(V1)] SEPTAL MYOCARDIAL INFARCTION , PROBABLY OLD A&P Assessment and plan (1) Acute alteration in mental status: (2) Atrial fibrillation with RVR: (3) Overdose of sympathomimetic agent: Plan Admit to ICU urine positive for amphetamines and benzodiazapines, blood alcohol level 182 c/w substance abuse cardiology consult in am continue amiodarone drip to titrate to HR less than 100. hemodynamically stable or now. banana bag IV fluids normal saline at 100ml/hr Iv ativan 1mg q6-8h prn for agitation and withdrawl. IV zofran 4mg q8h prn for nausea and vomiting IV pantoprazole 40mg bid for stress ulcer ppx. DVT ppx with SCD full code for now. Attestations Medical Necessity Statement*: altered mental status and monitor for substance abuse withdrawal Time Spent in Patient Care: 35min Coding Level of Care Code Critical Care >/= 30 minutes Diagnoses Acute alteration in mental status R41.82 Atrial fibrillation with RVR I48.91 Overdose of sympathomimetic agent T44.901A Time Spent (min) 40
[2022-11-16] MEDS: pantoprazole 40 mg SDV IVP ×2 (04:41→17:03)
[2022-11-16] MEDS: LORazepam 2 mg/mL INJ 1 mL 0.5 MG IVP ×2 (04:42→22:15)
[2022-11-16] MEDS: sodium chloride 0.9% 1,000 ML 75 ML IV (05:55)
--- NOTE | 2022-11-16 06:12 | PC.NURSE ---
Patient received 3+ liters of fluid and had not voided since arriving on unit. Multiple attempts to use the urinal were made and unsuccessful. Patient's stated that patient suffers from BPH and urinary retention. bladder scan revealed 996ml and Hospitalist notified. Order for Catheter received and placed with additional staff's assistance. Coude was utilized as provided catheter was not successfully advanced.
--- NOTE | 2022-11-16 08:45 | PC.NURSE ---
some confusion remains at this time .. restless pulling at selby and lines.. up in bed am breakfast with good appetite iv amiodorone infusing at this time
--- NOTE | 2022-11-16 13:18 | PM.MISC ---
Miscellaneous Note Note: This morning patient is in sinus rhythm I have asked nurse to discontinue amiodarone Patient is able to eat Still confused Verbally redirectable Nonfocal neuro exam Sinus tachycardia Abdomen soft Patient is endorsing to use of smoking methamphetamine Drinks whiskey one-point once in a month Smokes a pack a day Looks euvolemic abdomen soft S1, S2 Assessment and plan For anxiety related to polysubstance abuse I would use Xanax Add thiamine folic acid May benefit from nicotine patch Discontinue amiodarone No active signs of A-fib I would not start anticoagulating agent at this point Patient is full code Patient cannot make decision for himself Not on 96-hour hold No suicidal ideation
[2022-11-16] MEDS: LORazepam 0.5 mg Tablet PO (17:03)
[2022-11-16] MEDS: metoprolol tartrate 25 mg Tablet PO (20:02)
[2022-11-16] MEDS: quetiapine 100 mg Tablet 200 MG PO (20:02)
[2022-11-16] MEDS: tamsulosin 0.4 mg Capsule PO (20:02)
[2022-11-16] MEDS: acetaminophen 325 mg Tablet 650 MG PO (20:02)
[2022-11-17] VITALS (24 sets, daily range): BP systolic 91–110; BP diastolic 54–83; PULSE 84–97; RESP 17–28; TEMP 36.1; O2SAT 87–98
[2022-11-17] MEDS: LORazepam 2 mg/mL INJ 1 mL 0.5 MG IVP (03:38)
[2022-11-17 04:34] LABS: Basophils % 0.1 %; Eosinophils # 0.1 10^3/uL (0.0-0.8); Eosinophils % 1.4 %; Hematocrit 38.8 % (42.0-52.0); Hemoglobin 13.2 g/dL (11.7-16.6); Lymphocytes # 2.4 10^3/uL (0.8-4.8); Lymphocytes % 30.2 %; Mean Corpuscular Hemoglobin 37.1 pg (28.0-34.0); Mean Platelet Volume 9.6 fL (7.4-10.4); Monocytes # 0.6 10^3/uL (0.2-0.9); Monocytes % 7.6 %; Neutrophils # 4.78 10^3/uL (1.8-7.7); Neutrophils % 60.4 %; Nucleated Red Blood Cells % 0 %; Platelet Count 222 10^3/cmm (130-400); Red Blood Count 3.56 10^6/uL (4.1-5.3); White Blood Count 7.9 10^3/uL (4.0-10.0)
[2022-11-17 04:44] LABS: INR 0.89 (0.8-1.2)
[2022-11-17 04:45] LABS: Partial Thromboplastin Time 30.4 SECONDS (23.9-36.7)
[2022-11-17 04:57] LABS: Alanine Aminotransferase 18 U/L (0-41); Albumin Level 3.2 g/dL (3.5-5.2); Alkaline Phosphatase 73 U/L (40-130); Aspartate Amino Transferase 17 U/L (0-40); Blood Urea Nitrogen 20 mg/dL (6-20); Calcium 8.5 mg/dL (8.5-10.5); Carbon Dioxide 24 mmol/L (22-29); Chloride 109 mmol/L (98-107); Globulin 2.6 g/dL (1.3-4.6); Glomerular Filtration Rate 121.4 mL/min (90-130); Glucose 93 mg/dL (65-115); Osmolality Calculated 296 mOsm/kg (285-295); Phosphorus 3.4 mg/dL (2.5-4.5); Sodium 142 mmol/L (136-145); Total Bilirubin 0.4 mg/dL (0.15-1.2); Total Protein 5.8 g/dL (6.6-8.7)
[2022-11-17] MEDS: pantoprazole 40 mg SDV IVP (05:09)
[2022-11-17] MEDS: thiamine 100 mg Tablet PO (08:19)
[2022-11-17] MEDS: metoprolol tartrate 25 mg Tablet PO (08:19)
[2022-11-17] MEDS: folic acid 1 mg Tablet PO (08:19)
[2022-11-17] MEDS: nicotine 21 mg Patch 1 PATCH TRANSDERMA (08:19)
[2022-11-17] MEDS: PARoxetine 20 mg Tablet PO (08:19)
--- NOTE | 2022-11-17 12:15 | PC.NURSE ---
called doctor pt wanting to leave ama .. iv removed and sola out talked with him will wait for short while to see doctor
== END 2022-11-17 17:14 | disposition left against medical advice (07) | DRG 918 ==
LOC: ER 11-16 00:08 → ICU 11-16 00:41
PROVIDERS: Admitting Provider Internal Medicine; Emergency Provider Emergency Medicine; PCP Family Medicine; Visit Provider Internal Medicine
DX: T44.901A Poisoning by unspecified drugs primarily affecting the autonomic nervous system, accidental (unintentional), initial encounter (principal); R41.82 Altered mental status, unspecified; F43.25 Adjustment disorder with mixed disturbance of emotions and conduct; Y90.6 Blood alcohol level of 120-199 mg/100 ml; F10.129 Alcohol abuse with intoxication, unspecified; F15.10 Other stimulant abuse, uncomplicated; F31.9 Bipolar disorder, unspecified; E87.6 Hypokalemia; I48.91 Unspecified atrial fibrillation; R00.0 Tachycardia, unspecified; F17.210 Nicotine dependence, cigarettes, uncomplicated; Y92.9 Unspecified place or not applicable
CPT/HCPCS: 36415; 36416; 51702; 70450; 71045; 80053; 80306; 80307; 82962; 83735; 84100; 84443; 85025; 85610; 85730; 87040; 93005; 96365; 96367; 96375; 96376; 99291; C9113; J0282; J2060; J3480; J3490; J7030; J7040; J7060

== ENCOUNTER 2022-11-24 01:36 | Emergency (ER) | payer MEDICAID, SELFPAY ==
[2022-11-24 01:43] VITALS: BP 141/94; PULSE 103; RESP 18; TEMP 37; O2SAT 98; BMI 22.9
[2022-11-24 02:12] LABS: Basophils % 0.4 %; Eosinophils # 0.2 10^3/uL (0.0-0.8); Eosinophils % 1.9 %; Hematocrit 45.9 % (42.0-52.0); Hemoglobin 15.5 g/dL (11.7-16.6); Lymphocytes # 3.3 10^3/uL (0.8-4.8); Lymphocytes % 34.7 %; Mean Corpuscular HGB Conc 33.8 g/dL (30.0-36.0); Mean Corpuscular Hemoglobin 36.5 pg (28.0-34.0); Monocytes # 1.1 10^3/uL (0.2-0.9); Monocytes % 11.3 %; Neutrophils # 4.95 10^3/uL (1.8-7.7); Neutrophils % 51.5 %; Nucleated Red Blood Cells % 0 %; Platelet Count 351 10^3/cmm (130-400); Red Blood Count 4.25 10^6/uL (4.1-5.3); Red Cell Distribution Width 13.2 % (12.1-15.1); White Blood Count 9.6 10^3/uL (4.0-10.0)
[2022-11-24] MEDS: FUROsemide 40 mg Tablet PO (02:13)
[2022-11-24 02:26] LABS: INR 0.93 (0.8-1.2)
[2022-11-24 02:35] LABS: Alanine Aminotransferase 17 U/L (0-41); Alcohol Level 229 mg/dL (0-10); Alkaline Phosphatase 90 U/L (40-130); Anion Gap 13.4 (5-19); Aspartate Amino Transferase 16 U/L (0-40); Blood Urea Nitrogen 13 mg/dL (6-20); Calcium 8.6 mg/dL (8.5-10.5); Carbon Dioxide 27 mmol/L (22-29); Chloride 103 mmol/L (98-107); Creatine Phosphokinase 191 U/L (39-308); Globulin 3.3 g/dL (1.3-4.6); Glomerular Filtration Rate 121.4 mL/min (90-130); Glucose 86 mg/dL (65-115); Osmolality Calculated 289 mOsm/kg (285-295); Potassium 3.4 mmol/L (3.5-5.1); Sodium 140 mmol/L (136-145); Total Bilirubin 0.3 mg/dL (0.15-1.2); Total Protein 7.3 g/dL (6.6-8.7)
[2022-11-24 02:38] LABS: Acetaminophen < 5.0 ug/mL (10-30); Salicylate < 0.3 mg/dL (3-10)
--- NOTE | 2022-11-24 03:16 | W.ED.EXTPRO ---
HPI - Extremity Problem General: Chief complaint: Extremity Problem,Nontraumatic Stated complaint: Hurt People Time Seen by Provider: 11/24/22 01:45 History of Present Illness: 47-year-old male well-known to the emergency department service. Presents with a complaint of swelling to his hands and feet. This been ongoing for some time. It seems to come and go to some degree. He noticed that his ring was tight. He also noticed that his feet feel tight and swollen. No decrease in urination. No worsening shortness of breath or chest pain. He drinks alcohol daily. Complaint: extremity swelling Onset (ago): day(s) Pain Consistency: intermittent Location: upper extremity and lower extremity Relieving factors: nothing Exacerbating factors: other Associated symptoms: Deny chest pain, fever(s) or rash Review of Systems Const: Denies: fever(s) Card: Denies: chest pain Resp: Denies: dyspnea or productive cough GI: Denies: abdominal pain or vomiting Skin/Breast: Denies: rash PFSH ED PFSH: Medical History Adjustment disorder with mixed disturbance of emotions and conduct Alcohol use disorder -Has known history of alcohol abuse&DT Bipolar 1 disorder, manic, mild Depressive disorder, not elsewhere classified Methamphetamine abuse -UDS positive for amphetamines/THC Surgical History H/O hernia repair History of appendectomy Family History Other Alcoholism /alcohol abuse Social History Quit status (tobacco): has tried quititng Number of times tried to quit tobacco: 4 Second hand smoke exposure: Yes Alcohol intake: current Substance/Drug Use: current Current gender identity: Male Physical Exam Const: COMMON NORMALS: no acute distress GENERAL APPEARANCE: cooperative HENMT: COMMON NORMALS: normocephalic, atraumatic and Normal external nose present HEAD & SCALP: normocephalic and atraumatic FACE & SINUS: normal facial exam and face symmetric NOSE: Normal external nose present Eye: COMMON NORMALS: Equal, round and reactive pupils present and EOMs intact bilaterally PUPIL: Yes Equal, round and reactive pupils present Neck/C-Spine: GENERAL: Yes trachea midline Chest: CHEST: Yes Symmetrical chest wall rise Resp: COMMON NORMALS: normal respiratory effort, No use of accessory muscles and clear to auscultation bilaterally AUSCULTATION: clear to auscultation bilaterally Cardio: COMMON NORMALS: regular rate and regular rhythm RATE: regular rate RHYTHM: regular rhythm GI: COMMON NORMALS: Normal to inspection, nondistended, normoactive bowel sounds present Extremity: COMMON NORMALS: no pedal edema Neuro: JOSÉ MIGUEL COMA SCALE: document GCS findings [place] coma scale eye opening: Spontaneous José Miguel coma scale verbal response: Orientated José Miguel coma scale motor response: Obey commands [place] coma scale total score: 15 SENSORY EXAM: Yes extremities (intact) Psych: COMMON NORMALS: speech normal SPEECH: Yes normal speech Skin: COMMON NORMALS: no rashes or lesions noted GENERAL SKIN EXAM: no rashes or lesions noted Course Vital Signs: Vital signs: Vital Signs Temperature 98.6 F 11/24/22 01:43 Pulse Rate 80 11/24/22 03:27 Respiratory Rate 16 11/24/22 03:27 Blood Pressure 141/94 11/24/22 01:43 Pulse Oximetry 95 11/24/22 03:27 Oxygen Delivery Me thod Room Air 11/24/22 01:43 MDM - Extremity (Nontraumatic) Medical Decision Making Patient essentially has minimal swelling. Renal function is normal. Potassium is 3.4. EtOH is 229. Liver enzymes are normal including albumin. No other definite cause of swelling identified. He is given Lasix 40 mg here. Lab Data 11/24/22 02:08 11/24/22 02:08 Laboratory Results WBC 9.6 10^3/uL (4.0-10.0) 11/24/22 02:08 RBC 4.25 10^6/uL (4.1-5.3) 11/24/22 02:08 Hgb 15.5 g/dL (11.7-16.6) 11/24/22 02:08 Hct 45.9 % (42.0-52.0) 11/24/22 02:08 MCV 108.0 fl (80-94) H 11/24/22 02:08 MCH 36.5 pg (28.0-34.0) H 11/24/22 02:08 MCHC 33.8 g/dL (30.0-36.0) 11/24/22 02:08 RDW 13.2 % (12.1-15.1) 11/24/22 02:08 Plt Count 351 10^3/cmm (130-400) 11/24/22 02:08 MPV 9.0 fL (7.4-10.4) 11/24/22 02:08 Neut % (Auto) 51.5 % 11/24/22 02:08 Lymph % (Auto) 34.7 % 11/24/22 02:08 [place] % (Auto) 11.3 % 11/24/22 02:08 Eos % (Auto) 1.9 % 11/24/22 02:08 Baso % (Auto) 0.4 % 11/24/22 02:08 Neut # (Auto) 4.95 10^3/uL (1.8-7.7) 11/24/22 02:08 Lymph # (Auto) 3.3 10^3/uL (0.8-4.8) 11/24/22 02:08 [place] # (Auto) 1.1 10^3/uL (0.2-0.9) H 11/24/22 02:08 Eos # (Auto) 0.2 10^3/uL (0.0-0.8) 11/24/22 02:08 Baso # (Auto) 0.0 10^3/uL (0.0-0.1) 11/24/22 02:08 Nucleated RBC % (auto) 0 % 11/24/22 02:08 Nucleated RBCs # 0.0 /100WBC 11/24/22 02:08 PT 12.70 SECONDS (12.1-14.9) 11/24/22 02:08 INR 0.93 (0.8-1.2) 11/24/22 02:08 Sodium 140 mmol/L (136-145) 11/24/22 02:08 Potassium 3.4 mmol/L (3.5-5.1) L 11/24/22 02:08 Chloride 103 mmol/L (98-107) 11/24/22 02:08 Carbon Dioxide 27 mmol/L (22-29) 11/24/22 02:08 Anion Gap 13.4 (5-19) 11/24/22 02:08 BUN 13 mg/dL (6-20) 11/24/22 02:08 Creatinine 0.7 mg/dL (0.7-1.2) 11/24/22 02:08 GFR Calculation 121.4 mL/min (90-130) 11/24/22 02:08 Glucose 86 mg/dL (65-115) 11/24/22 02:08 Calculated Osmolality 289 mOsm/kg (285-295) 11/24/22 02:08 Calcium 8.6 mg/dL (8.5-10.5) 11/24/22 02:08 Total Bilirubin 0.3 mg/dL (0.15-1.2) 11/24/22 02:08 AST 16 U/L (0-40) 11/24/22 02:08 ALT 17 U/L (0-41) 11/24/22 02:08 Alkaline Phosphatase 90 U/L (40-130) 11/24/22 02:08 Creatine Kinase 191 U/L (39-308) 11/24/22 02:08 Total Protein 7.3 g/dL (6.6-8.7) 11/24/22 02:08 Albumin 4.0 g/dL (3.5-5.2) 11/24/22 02:08 Globulin 3.3 g/dL (1.3-4.6) 11/24/22 02:08 Urine Color Yellow (Yellow) 11/24/22 02:50 Urine Appearance Clear (CLEAR) 11/24/22 02:50 Urine pH 7 (5-7) 11/24/22 02:50 Ur Specific [place] 1.010 (1.005-1.030) 11/24/22 02:50 Urine Protein Neg (Negative) 11/24/22 02:50 Urine Glucose (UA) Norm (Normal) 11/24/22 02:50 Urine Ketones Negative (Negative) 11/24/22 02:50 Urine Blood Neg (Negative) 11/24/22 02:50 Urine Nitrate Negative (Negative) 11/24/22 02:50 Urine Bilirubin Neg (Negative) 11/24/22 02:50 Urine Urobilinogen Neg mg/dL (Negative) 11/24/22 02:50 Ur Leukocyte Esterase Negative (Negative) 11/24/22 02:50 Salicylates < 0.3 mg/dL (3-10) L 11/24/22 02:08 Acetaminophen < 5.0 ug/mL (10-30) L 11/24/22 02:08 Ethyl Alcohol 229 mg/dL (0-10) H 11/24/22 02:08 Discharge Plan Discharge Patient Disposition: Home Clinical Impression: Alcohol intoxication, Superficial thrombophlebitis Condition: Stable Prescriptions: No Action fluticasone propionate 50 mcg/actuation spray,suspension 1 spray intranasal DAILY PRN (Reason: allergy symptoms) Qty: 16 0RF Rx Instructions: administer into each nostril amoxicillin-pot clavulanate 875-125 mg tablet 1 tab PO BID Qty: 20 0RF pantoprazole 40 mg tablet,delayed release (DR/EC) 40 mg PO DAILY 30 Days Qty: 30 1RF albuterol sulfate 90 mcg/actuation aero powdr breath act w/sensor 2 inh inhalation Q6H Qty: 1 0RF diphenhydramine HCl [Benadryl Allergy] 25 mg Tablet 125 - 150 mg PO Q6H PRN (Reason: Anxiety) trazodone 50 mg tablet 50 mg PO DAILY naltrexone 50 mg tablet 50 mg PO DAILY quetiapine 200 mg tablet 200 mg PO BEDTIME propranolol 10 mg tablet 10 mg PO BID tamsulosin [Flomax] 0.4 mg Capsule 0.4 mg PO BEDTIME sertraline [Zoloft] 50 mg Tablet 50 mg PO DAILY nicotine 21 mg/24 hr Patch 24 Hour 1 patch TRANSDERMAL DAILY paroxetine HCl 20 mg tablet 20 mg PO DAILY Discharge Orders: Discharge ED (Routine); Ordered 11/24/22 Ordered By: Pete Mccrudy Patient Instructions: Alcohol Intoxication (ED), Edema (ED) Activity Restrictions/Additional Instructions: Your swelling does not not appear to be related to kidney disease or liver disease. Presence of alcohol in your serum can lead to intermittent swelling. Medication you were given this morning should improve this. Return for problems. See your doctor in follow-up. Coding Level of Care Code ED Loan And Credit Manager for Camila Alvares
[2022-11-24 03:17] LABS: Add Urine Microscopic? NO; Charge for UA Resulting for Rev
[2022-11-24 03:20] LABS: Bilirubin Urine Neg (Negative); Blood Urine Neg (Negative); Glucose Urine UA Norm (Normal); Ketones Urine Negative (Negative); Leukocyte Esterase Urine Negative (Negative); Nitrate Urine Negative (Negative); Protein Urine Neg (Negative); Urine Appearance Clear (CLEAR); Urine Color Yellow (Yellow); Urobilinogen Urine Neg (Negative); pH Urine 7 (5-7)
[2022-11-24 03:27] VITALS: PULSE 80; RESP 16; O2SAT 95
== END 2022-11-24 03:27 | disposition home or self-care (01) ==
PROVIDERS: Emergency Provider Emergency Medicine
DX: I80.8 Phlebitis and thrombophlebitis of other sites (principal); F10.129 Alcohol abuse with intoxication, unspecified; Y90.7 Blood alcohol level of 200-239 mg/100 ml; Z87.891 Personal history of nicotine dependence
CPT/HCPCS: 36415; 80053; 80307; 81003; 82550; 85025; 85610; 99283

== ENCOUNTER 2022-12-28 04:55 | Emergency (ER) | payer MEDICAID, SELFPAY ==
[2022-12-28 04:56] VITALS: BP 120/83; PULSE 103; RESP 12; O2SAT 96; BMI 25.8
--- NOTE | 2022-12-28 04:56 | W.ED.GENADLT ---
Documented by User: Deon Diane MD 01/09/23 18:57 HPI - General Adult General: Chief complaint: Alcohol Stated complaint: ETOH Time Seen by Provider: 12/28/22 04:56 Limitations: altered mental status History of Present Illness: Mr. Mendenhall is a 47-year-old gentleman who presents to the emergency department via EMS for reported likely alcohol intoxication. Apparently EMS saw him at about 1 PM and again at 445. He endorsed drinking both times. History is otherwise limited by mental status. Review of Systems General: Reports: ROS unobtainable due to mental status PFSH ED PFSH: Medical History Adjustment disorder with mixed disturbance of emotions and conduct Alcohol use disorder -Has known history of alcohol abuse&DT Bipolar 1 disorder, manic, mild Depressive disorder, not elsewhere classified Methamphetamine abuse -UDS positive for amphetamines/THC Surgical History H/O hernia repair History of appendectomy Family History Other Alcoholism /alcohol abuse Social History Quit status (tobacco): has tried quititng Number of times tried to quit tobacco: 4 Second hand smoke exposure: Yes Alcohol intake: current Substance/Drug Use: current Current gender identity: Male Physical Exam Const: GENERAL APPEARANCE: well developed and odor of alcohol detected HENMT: COMMON NORMALS: normocephalic and atraumatic HEAD & SCALP: normocephalic and atraumatic THROAT: posterior oropharynx normal Eye: COMMON NORMALS: conjunctivae normal CONJUNCTIVA: Yes conjunctivae normal SCLERA: sclerae normal Neck/C-Spine: COMMON NORMALS: supple GENERAL: Yes trachea midline Resp: COMMON NORMALS: clear to auscultation bilaterally EFFORT & INSPECTION: Yes able to speak in complete sentences AUSCULTATION: clear to auscultation bilaterally Cardio: COMMON NORMALS: regular rate and regular rhythm RATE: regular rate RHYTHM: regular rhythm GI: COMMON NORMALS: Soft to palpation PALPATION: Yes Soft to palpation and No Tenderness to palpation present (GI) Extremity: GENERAL: Yes normal exam except as noted and No edema Neuro: COMMON NORMALS: moves all extremities SENSORIUM/ORIENTATION: Yes somnolent Course Vital Signs: Vital signs: Vital Signs Pulse Rate 95 12/28/22 07:53 Respiratory Rate 12 12/28/22 04:56 Blood Pressure 102/78 12/28/22 07:53 Pulse Oximetry 99 12/28/22 07:53 Oxygen Delivery Me thod Nasal Cannula 12/28/22 06:00 Oxygen Flow Rate 2 12/28/22 06:00 MDM - General Adult Medical Decision Making 47-year-old gentleman with reported alcohol abuse presenting with altered mental status. Head to toe exam performed. Patient is protecting his airway. Labs with no significant hematologic or metabolic abnormalities. Alcohol level is significantly elevated. Chest x-ray with no lobar consolidation or pneumothorax. Handed off to Dr. Morocho pending reassessment for clinical sobriety. Care assumed at change of shift patient acutely intoxicated. Patient now awake and alert answers questions. Encourage abstinence from alcohol. Patient declines recommended [facility] he states he wants to stop drinking he will stop on his own he has no intent or desire to stop. Patient discharged home with information regarding alcoholism. Lab Data 12/28/22 05:47 12/28/22 05:47 Radiology Impressions Chest X-Ray 12/28/22 05:01 IMPRESSION: No acute findings. Laboratory Results WBC 7.3 10^3/uL (4.0-10.0) 12/28/22 05:47 RBC 4.17 10^6/uL (4.1-5.3) 12/28/22 05:47 Hgb 15.4 g/dL (11.7-16.6) 12/28/22 05:47 Hct 45.9 % (42.0-52.0) 12/28/22 05:47 MCV 110.1 fl (80-94) H 12/28/22 05:47 MCH 36.9 pg (28.0-34.0) H 12/28/22 05:47 MCHC 33.6 g/dL (30.0-36.0) 12/28/22 05:47 RDW 13.2 % (12.1-15.1) 12/28/22 05:47 Plt Count 311 10^3/cmm (130-400) 12/28/22 05:47 MPV 8.8 fL (7.4-10.4) 12/28/22 05:47 Neut % (Auto) 49.8 % 12/28/22 05:47 Lymph % (Auto) 35.2 % 12/28/22 05:47 [place] % (Auto) 11.2 % 12/28/22 05:47 Eos % (Auto) 3.0 % 12/28/22 05:47 Baso % (Auto) 0.5 % 12/28/22 05:47 Neut # (Auto) 3.64 10^3/uL (1.8-7.7) 12/28/22 05:47 Lymph # (Auto) 2.6 10^3/uL (0.8-4.8) 12/28/22 05:47 [place] # (Auto) 0.8 10^3/uL (0.2-0.9) 12/28/22 05:47 Eos # (Auto) 0.2 10^3/uL (0.0-0.8) 12/28/22 05:47 Baso # (Auto) 0.0 10^3/uL (0.0-0.1) 12/28/22 05:47 Nucleated RBC % (auto) 0 % 12/28/22 05:47 Nucleated RBCs # 0.0 /100WBC 12/28/22 05:47 Sodium 144 mmol/L (136-145) 12/28/22 05:47 Potassium 4.2 mmol/L (3.5-5.1) 12/28/22 05:47 Chloride 108 mmol/L (98-107) H 12/28/22 05:47 Carbon Dioxide 23 mmol/L (22-29) 12/28/22 05:47 Anion Gap 17.2 (5-19) 12/28/22 05:47 BUN 18 mg/dL (6-20) 12/28/22 05:47 Creatinine 0.8 mg/dL (0.7-1.2) 12/28/22 05:47 GFR Calculation 104.1 mL/min (90-130) 12/28/22 05:47 Glucose 99 mg/dL (65-115) 12/28/22 05:47 POC Glucose 91 mg/dL (70-110) 12/28/22 05:16 Calculated Osmolality 300 mOsm/kg (285-295) H 12/28/22 05:47 Calcium 8.6 mg/dL (8.5-10.5) 12/28/22 05:47 Salicylates < 0.3 mg/dL (3-10) L 12/28/22 05:47 Acetaminophen < 5.0 ug/mL (10-30) L 12/28/22 05:47 Ethyl Alcohol 240 mg/dL (0-10) H 12/28/22 05:47 Discharge Plan Discharge Patient Disposition: Home Clinical Impression: Alcohol intoxication, Alcohol use disorder Condition: Stable Prescriptions: No Action paroxetine HCl 20 mg Tablet 40 mg PO BEDTIME 30 Days Qty: 60 1RF quetiapine 200 mg tablet 200 mg PO BEDTIME Qty: 30 1RF Vistaril 50 mg Capsule 50 mg PO QID PRN (Reason: Agitation) 30 Days Qty: 120 1RF Flomax 0.4 mg Capsule 0.4 mg PO BEDTIME 30 Days Qty: 30 1RF pantoprazole 40 mg tablet,delayed release (DR/EC) 40 mg PO DAILY 30 Days Qty: 30 1RF Latuda 40 mg Tablet 40 mg PO QPM 30 Days Qty: 30 1RF Rx Instructions: must administer with food (at least 350 calories) Discharge Orders: Discharge ED (Routine); Ordered 12/28/22 Ordered By: Cruzito Morocho Discharge Diet: Usual diet Discharge Activity: Increase activity as tolerated Patient Instructions: Alcoholism, Alcohol Intoxication (ED), Abuse of Alcohol (ED), Opioid Safety, Pain Management Activity Restrictions/Additional Instructions: Abstain from alcohol Sign Out Sign Out Data: Patient Sign Out occurred on 12/28/22 at 06:20. Patient's care was discussed, and care was transferred from to Cruzito Morocho DO. Coding Level of Care Code ED Laminator Hand for Chg Fwd Documented by User: Cruzito Morocho DO 12/28/22 07:53 HPI - General Adult General: Chief complaint: Alcohol Stated complaint: ETOH Time Seen by Provider: 12/28/22 04:56 PFSH ED PFSH: Medical History Adjustment disorder with mixed disturbance of emotions and conduct Alcohol use disorder -Has known history of alcohol abuse&DT Bipolar 1 disorder, manic, mild Depressive disorder, not elsewhere classified Methamphetamine abuse -UDS positive for amphetamines/THC Surgical History H/O hernia repair History of appendectomy Family History Other Alcoholism /alcohol abuse Social History Quit status (tobacco): has tried quititng Number of times tried to quit tobacco: 4 Second hand smoke exposure: Yes Alcohol intake: current Substance/Drug Use: current Current gender identity: Male Course Vital Signs: Vital signs: Vital Signs Pulse Rate 95 12/28/22 07:53 Respiratory Rate 12 12/28/22 04:56 Blood Pressure 102/78 12/28/22 07:53 Pulse Oximetry 99 12/28/22 07:53 Oxygen Delivery Me thod Nasal Cannula 12/28/22 06:00 Oxygen Flow Rate 2 12/28/22 06:00 MDM - General Adult Medical Decision Making Care assumed at change of shift patient acutely intoxicated. Patient now awake and alert answers questions. Encourage abstinence from alcohol. Patient declines recommended follow-up with [facility] he states he wants to stop drinking he will stop on his own he has no intent or desire to stop. Patient discharged home with information regarding alcoholism. Medical Records I reviewed the patient's medical records. Lab Data I reviewed the patient's lab results. 12/28/22 05:47 12/28/22 05:47 Radiology Impressions Chest X-Ray 12/28/22 05:01 IMPRESSION: No acute findings. Laboratory Results WBC 7.3 10^3/uL (4.0-10.0) 12/28/22 05:47 RBC 4.17 10^6/uL (4.1-5.3) 12/28/22 05:47 Hgb 15.4 g/dL (11.7-16.6) 12/28/22 05:47 Hct 45.9 % (42.0-52.0) 12/28/22 05:47 MCV 110.1 fl (80-94) H 12/28/22 05:47 MCH 36.9 pg (28.0-34.0) H 12/28/22 05:47 MCHC 33.6 g/dL (30.0-36.0) 12/28/22 05:47 RDW 13.2 % (12.1-15.1) 12/28/22 05:47 Plt Count 311 10^3/cmm (130-400) 12/28/22 05:47 MPV 8.8 fL (7.4-10.4) 12/28/22 05:47 Neut % (Auto) 49.8 % 12/28/22 05:47 Lymph % (Auto) 35.2 % 12/28/22 05:47 [place] % (Auto) 11.2 % 12/28/22 05:47 Eos % (Auto) 3.0 % 12/28/22 05:47 Baso % (Auto) 0.5 % 12/28/22 05:47 Neut # (Auto) 3.64 10^3/uL (1.8-7.7) 12/28/22 05:47 Lymph # (Auto) 2.6 10^3/uL (0.8-4.8) 12/28/22 05:47 [place] # (Auto) 0.8 10^3/uL (0.2-0.9) 12/28/22 05:47 Eos # (Auto) 0.2 10^3/uL (0.0-0.8) 12/28/22 05:47 Baso # (Auto) 0.0 10^3/uL (0.0-0.1) 12/28/22 05:47 Nucleated RBC % (auto) 0 % 12/28/22 05:47 Nucleated RBCs # 0.0 /100WBC 12/28/22 05:47 Sodium 144 mmol/L (136-145) 12/28/22 05:47 Potassium 4.2 mmol/L (3.5-5.1) 12/28/22 05:47 Chloride 108 mmol/L (98-107) H 12/28/22 05:47 Carbon Dioxide 23 mmol/L (22-29) 12/28/22 05:47 Anion Gap 17.2 (5-19) 12/28/22 05:47 BUN 18 mg/dL (6-20) 12/28/22 05:47 Creatinine 0.8 mg/dL (0.7-1.2) 12/28/22 05:47 GFR Calculation 104.1 mL/min (90-130) 12/28/22 05:47 Glucose 99 mg/dL (65-115) 12/28/22 05:47 POC Glucose 91 mg/dL (70-110) 12/28/22 05:16 Calculated Osmolality 300 mOsm/kg (285-295) H 12/28/22 05:47 Calcium 8.6 mg/dL (8.5-10.5) 12/28/22 05:47 Salicylates < 0.3 mg/dL (3-10) L 12/28/22 05:47 Acetaminophen < 5.0 ug/mL (10-30) L 12/28/22 05:47 Ethyl Alcohol 240 mg/dL (0-10) H 12/28/22 05:47 Discharge Plan Discharge Patient Disposition: Home Clinical Impression: Alcohol intoxication, Alcohol use disorder Condition: Stable Prescriptions: No Action paroxetine HCl 20 mg Tablet 40 mg PO BEDTIME 30 Days Qty: 60 1RF quetiapine 200 mg tablet 200 mg PO BEDTIME Qty: 30 1RF Vistaril 50 mg Capsule 50 mg PO QID PRN (Reason: Agitation) 30 Days Qty: 120 1RF Flomax 0.4 mg Capsule 0.4 mg PO BEDTIME 30 Days Qty: 30 1RF pantoprazole 40 mg tablet,delayed release (DR/EC) 40 mg PO DAILY 30 Days Qty: 30 1RF Latuda 40 mg Tablet 40 mg PO QPM 30 Days Qty: 30 1RF Rx Instructions: must administer with food (at least 350 calories) Discharge Orders: Discharge ED (Routine); Ordered 12/28/22 Ordered By: Cruzito Morocho Discharge Diet: Usual diet Discharge Activity: Increase activity as tolerated Patient Instructions: Alcoholism, Alcohol Intoxication (ED), Abuse of Alcohol (ED), Opioid Safety, Pain Management Activity Restrictions/Additional Instructions: Abstain from alcohol Sign Out Sign Out Data: Patient Sign Out occurred on 12/28/22 at 06:20. Patient's care was discussed, and care was transferred from to Cruzito Morocho DO. Coding Level of Care Code ED Laminator Hand for Camila Alvares
--- NOTE | 2022-12-28 05:01 | XRR_ITS ---
PROCEDURE INFORMATION: Exam: XR Chest Exam date and time: 12/28/2022 5:13 AM Age: 47 years old Clinical indication: Cough TECHNIQUE: Imaging protocol: Radiologic exam of the chest. Views: 1 view. COMPARISON: CR (CHEST, ) 11/15/2022 8:50 PM FINDINGS: Lungs: Lungs are clear. Pleural spaces: There is no pleural effusion or pneumothorax. Heart/Mediastinum: Cardiomediastinal contours are unremarkable. Bones/joints: Bones are unremarkable. XR/XR chest 1V portable [id number] IMPRESSION: No acute findings.
[2022-12-28 05:20] LABS: Glucose Point of Care 91 mg/dL (70-110)
[2022-12-28 05:30] VITALS: BP 95/51; PULSE 95; O2SAT 98
[2022-12-28 05:55] LABS: Basophils % 0.5 %; Eosinophils # 0.2 10^3/uL (0.0-0.8); Hematocrit 45.9 % (42.0-52.0); Hemoglobin 15.4 g/dL (11.7-16.6); Lymphocytes # 2.6 10^3/uL (0.8-4.8); Lymphocytes % 35.2 %; Mean Corpuscular HGB Conc 33.6 g/dL (30.0-36.0); Mean Corpuscular Hemoglobin 36.9 pg (28.0-34.0); Mean Corpuscular Volume 110.1 fl (80-94); Mean Platelet Volume 8.8 fL (7.4-10.4); Monocytes # 0.8 10^3/uL (0.2-0.9); Monocytes % 11.2 %; Neutrophils # 3.64 10^3/uL (1.8-7.7); Neutrophils % 49.8 %; Nucleated Red Blood Cells % 0 %; Platelet Count 311 10^3/cmm (130-400); Red Blood Count 4.17 10^6/uL (4.1-5.3); Red Cell Distribution Width 13.2 % (12.1-15.1); White Blood Count 7.3 10^3/uL (4.0-10.0)
[2022-12-28 06:00] VITALS: BP 95/54; PULSE 89; O2SAT 100
[2022-12-28 06:19] LABS: Alcohol Level 240 mg/dL (0-10); Anion Gap 17.2 (5-19); Blood Urea Nitrogen 18 mg/dL (6-20); Calcium 8.6 mg/dL (8.5-10.5); Carbon Dioxide 23 mmol/L (22-29); Chloride 108 mmol/L (98-107); Glomerular Filtration Rate 104.1 mL/min (90-130); Glucose 99 mg/dL (65-115); Osmolality Calculated 300 mOsm/kg (285-295); Potassium 4.2 mmol/L (3.5-5.1); Sodium 144 mmol/L (136-145)
[2022-12-28 06:24] LABS: Acetaminophen < 5.0 ug/mL (10-30); Salicylate < 0.3 mg/dL (3-10)
[2022-12-28 07:09] VITALS: BP 101/52; PULSE 92; O2SAT 98
[2022-12-28 07:53] VITALS: BP 102/78; PULSE 95; O2SAT 99
== END 2022-12-28 07:54 | disposition home or self-care (01) ==
PROVIDERS: Emergency Medicine; Emergency Provider Family Medicine
DX: F10.129 Alcohol abuse with intoxication, unspecified (principal); Y90.8 Blood alcohol level of 240 mg/100 ml or more; F17.200 Nicotine dependence, unspecified, uncomplicated; Z79.899 Other long term (current) drug therapy
CPT/HCPCS: 36415; 36416; 71045; 80048; 80307; 82962; 85025; 99284

== ENCOUNTER 2022-12-30 17:32 | Inpatient (IN) | payer MEDICAID, SELFPAY ==
[2022-12-30 17:36] VITALS: BP 135/84; PULSE 111; RESP 16; TEMP 36.8; O2SAT 96; BMI 22.9
[2022-12-30 18:20] LABS: Amphetamines Screen Urine Negative (Negative); Barbiturates Screen Urine Negative (Negative); Benzodiazepines Screen Urine Negative (Negative); Cocaine Screen Urine Negative (Negative); Opiate Screen Urine Negative (Negative); PCP Screen Urine Negative (Negative); THC Screen Urine Positive (Negative)
--- NOTE | 2022-12-30 18:25 | W.ED.PSYCHS ---
HPI - Psych General: Chief Complaint: Psychiatric Symptoms Stated Complaint: brought in by police Time Seen by Provider: 12/30/22 18:12 Source: patient History of Present Illness: 47-year-old male gentleman well-known to the emergency department service. He presents intoxicated. He is with police. Evidently some domestic issues at home. He had made statements about wanting to hurt his . He is calm and cooperative now. He denies any recent medical illness. MD complaint: feels depressed, altered mental status and other (Made statements about harming his ) Onset (ago): hour(s) Duration: constant History of same: Yes Relieving factors: none Exacerbating factors: alcohol Context: recent alcohol abuse Associated psychiatric symptoms: depression and homicidal ideation Associated symptoms: Reports depression and homicidal ideation; Deny auditory hallucinations, visual hallucinations or suicidal ideation Review of Systems Const: Denies: fever(s), chills or body aches Eyes: Denies: change in vision ENMT: Denies: throat pain Card: Denies: chest pain Resp: Denies: dyspnea GI: Denies: abdominal pain, nausea or vomiting Skin/Breast: Denies: rash Neuro: Denies: headache(s) Psych: Reports: depression and homicidal ideation; Denies: visual hallucinations, auditory hallucinations or suicidal ideation [facility] PFSH: Medical History Adjustment disorder with mixed disturbance of emotions and conduct Alcohol use disorder -Has known history of alcohol abuse&DT Bipolar 1 disorder, manic, mild Depressive disorder, not elsewhere classified Methamphetamine abuse -UDS positive for amphetamines/THC Surgical History H/O hernia repair History of appendectomy Family History Other Alcoholism /alcohol abuse Social History Quit status (tobacco): has tried quititng Number of times tried to quit tobacco: 4 Second hand smoke exposure: Yes Alcohol intake: current Substance/Drug Use: current Current gender identity: Male Physical Exam Const: COMMON NORMALS: no acute distress GENERAL APPEARANCE: cooperative; not ill appearing and not frail appearing HENMT: COMMON NORMALS: normocephalic, atraumatic and Normal external nose present HEAD & SCALP: normocephalic and atraumatic FACE & SINUS: normal facial exam and face symmetric NOSE: Normal external nose present Eye: COMMON NORMALS: Equal, round and reactive pupils present and EOMs intact bilaterally PUPIL: Yes Equal, round and reactive pupils present Neck/C-Spine: GENERAL: Yes trachea midline Chest: CHEST: Yes Symmetrical chest wall rise Resp: COMMON NORMALS: normal respiratory effort, No retractions, No use of accessory muscles and clear to auscultation bilaterally AUSCULTATION: clear to auscultation bilaterally Cardio: COMMON NORMALS: regular rate and regular rhythm RATE: regular rate RHYTHM: regular rhythm GI: COMMON NORMALS: Normal to inspection, nondistended, normoactive bowel sounds present Extremity: COMMON NORMALS: no pedal edema Neuro: WILMER COMA SCALE: document GCS findings Wilmer coma scale eye opening: Spontaneous [place] coma scale verbal response: Orientated [place] coma scale motor response: Obey commands Wilmer coma scale total score: 15 SENSORY EXAM: Yes extremities (intact) Psych: COMMON NORMALS: speech normal SPEECH: Yes normal speech Skin: COMMON NORMALS: no rashes or lesions noted GENERAL SKIN EXAM: no rashes or lesions noted Course Vital Signs: Vital signs: Vital Signs Temperature 98.2 F 12/30/22 17:36 Pulse Rate 111 H 12/30/22 17:36 Respiratory Rate 16 12/30/22 17:36 Blood Pressure 135/84 12/30/22 17:36 Pulse Oximetry 96 12/30/22 17:36 Oxygen Delivery Me thod Room Air 12/30/22 17:36 MDM - Psych Medical Decision Making Patient is awake, alert, and ambulatory. He is walking. Medically stable. Alcohol is 287. CBC is normal. BMP is normal. Urine drug screen is positive for marijuana only. Urinalysis is negative. Patient wanting to come in for evaluation by psychiatry. With statements about harming his , I tend to agree. I spoke with psychiatry, admission orders are written. He will be put on [facility] protocol. Lab Data 12/30/22 18:30 12/30/22 18:30 Laboratory Results WBC 7.6 10^3/uL (4.0-10.0) 12/30/22 18:30 RBC 4.40 10^6/uL (4.1-5.3) 12/30/22 18:30 Hgb 16.2 g/dL (11.7-16.6) 12/30/22 18: Hct 47.7 % (42.0-52.0) 12/30/22 18: MCV 108.4 fl (80-94) H 12/30/22 18: MCH 36.8 pg (28.0-34.0) H 12/30/22 18: MCHC 34.0 g/dL (30.0-36.0) 12/30/22 18: RDW 13.2 % (12.1-15.1) 12/30/22 18: Plt Count 347 10^3/cmm (130-400) 12/30/22 18: MPV 8.5 fL (7.4-10.4) 12/30/22 18: Neut % (Auto) 61.2 % 12/30/22 18: Lymph % (Auto) 28.7 % 12/30/22 18: Hyde % (Auto) 8.9 % 12/30/22 18: Eos % (Auto) 0.5 % 12/30/22 18: Baso % (Auto) 0.4 % 12/30/22 18: Neut # (Auto) 4.66 10^3/uL (1.8-7.7) 12/30/22 18: Lymph # (Auto) 2.2 10^3/uL (0.8-4.8) 12/30/22 18: Hyde # (Auto) 0.7 10^3/uL (0.2-0.9) 12/30/22 18: Eos # (Auto) 0.0 10^3/uL (0.0-0.8) 12/30/22 18: Baso # (Auto) 0.0 10^3/uL (0.0-0.1) 12/30/22 18: Nucleated RBC % (auto) 0 % 12/30/22 18: Nucleated RBCs # 0.0 /100WBC 12/30/22 18: Sodium 145 mmol/L (136-145) 12/30/22 18: Potassium 4.0 mmol/L (3.5-5.1) 12/30/22 18:30 Chloride 105 mmol/L (98-107) 12/30/22 18:30 Carbon Dioxide 24 mmol/L (22-29) 12/30/22 18:30 Anion Gap 20.0 (5-19) H 12/30/22 18:30 BUN 18 mg/dL (6-20) 12/30/22 18:30 Creatinine 0.7 mg/dL (0.7-1.2) 12/30/22 18:30 GFR Calculation 121.4 mL/min (90-130) 12/30/22 18:30 Glucose 84 mg/dL (65-115) 12/30/22 18:30 Calculated Osmolality 301 mOsm/kg (285-295) H 12/30/22 18:30 Calcium 8.6 mg/dL (8.5-10.5) 12/30/22 18:30 Total Bilirubin 0.3 mg/dL (0.15-1.2) 12/30/22 18:30 AST 30 U/L (0-40) 12/30/22 18:30 ALT 29 U/L (0-41) 12/30/22 18:30 Alkaline Phosphatase 108 U/L (40-130) 12/30/22 18:30 Total Protein 7.6 g/dL (6.6-8.7) 12/30/22 18:30 Albumin 4.3 g/dL (3.5-5.2) 12/30/22 18:30 Globulin 3.3 g/dL (1.3-4.6) 12/30/22 18:30 Urine Color Yellow (Yellow) 12/30/22 17:57 Urine Appearance Clear (CLEAR) 12/30/22 17:57 Urine pH 5 (5-7) 12/30/22 17:57 Ur Specific Dresher 1.030 (1.005-1.030) 12/30/22 17:57 Urine Protein Neg (Negative) 12/30/22 17:57 Urine Glucose (UA) Norm (Normal) 12/30/22 17:57 Urine Ketones Negative (Negative) 12/30/22 17:57 Urine Blood Neg (Negative) 12/30/22 17:57 Urine Nitrate Negative (Negative) 12/30/22 17:57 Urine Bilirubin Neg (Negative) 12/30/22 17:57 Urine Urobilinogen Norm mg/dL (Negative) 12/30/22 17:57 Ur Leukocyte Esterase Negative (Negative) 12/30/22 17:57 Salicylates < 0.3 mg/dL (3-10) L 12/30/22 18:30 Urine Opiates Screen Negative ng/mL (Negative) 12/30/22 17:57 Acetaminophen < 5.0 ug/mL (10-30) L 12/30/22 18:30 Ur Barbiturates Screen Negative ng/mL (Negative) 12/30/22 17:57 Ur Phencyclidine Scrn Negative ng/mL (Negative) 12/30/22 17:57 Ur Amphetamines Screen Negative ng/mL (Negative) 12/30/22 17:57 U Benzodiazepines Scrn Negative ng/mL (Negative) 12/30/22 17:57 Urine Cocaine Screen Negative ng/mL (Negative) 12/30/22 17:57 U Marijuana (THC) Screen Positive ng/mL (Negative) H 12/30/22 17:57 Ethyl Alcohol 287 mg/dL (0-10) H 12/30/22 18:30 Discharge Plan Discharge Patient Disposition: Admitted As Inpatient Clinical Impression: Depression, Homicidal ideation Condition: Stable Coding Level of Care Code ED Community Development Planner for Camila Alvares
[2022-12-30 18:28] LABS: Add Urine Microscopic? NO; Urine Appearance Clear (CLEAR); Urine Color Yellow (Yellow); pH Urine 5 (5-7)
[2022-12-30 18:29] LABS: Bilirubin Urine Neg (Negative); Blood Urine Neg (Negative); Charge for UA Resulting for Rev; Glucose Urine UA Norm (Normal); Ketones Urine Negative (Negative); Leukocyte Esterase Urine Negative (Negative); Nitrate Urine Negative (Negative); Protein Urine Neg (Negative); Urobilinogen Urine Norm (Negative)
[2022-12-30 18:39] LABS: Basophils % 0.4 %; Eosinophils % 0.5 %; Hematocrit 47.7 % (42.0-52.0); Hemoglobin 16.2 g/dL (11.7-16.6); Lymphocytes # 2.2 10^3/uL (0.8-4.8); Lymphocytes % 28.7 %; Mean Corpuscular Hemoglobin 36.8 pg (28.0-34.0); Mean Corpuscular Volume 108.4 fl (80-94); Mean Platelet Volume 8.5 fL (7.4-10.4); Monocytes # 0.7 10^3/uL (0.2-0.9); Monocytes % 8.9 %; Neutrophils # 4.66 10^3/uL (1.8-7.7); Neutrophils % 61.2 %; Nucleated Red Blood Cells % 0 %; Platelet Count 347 10^3/cmm (130-400); Red Cell Distribution Width 13.2 % (12.1-15.1); White Blood Count 7.6 10^3/uL (4.0-10.0)
[2022-12-30 19:38] LABS: Alanine Aminotransferase 29 U/L (0-41); Albumin Level 4.3 g/dL (3.5-5.2); Alcohol Level 287 mg/dL (0-10); Alkaline Phosphatase 108 U/L (40-130); Aspartate Amino Transferase 30 U/L (0-40); Blood Urea Nitrogen 18 mg/dL (6-20); Calcium 8.6 mg/dL (8.5-10.5); Carbon Dioxide 24 mmol/L (22-29); Chloride 105 mmol/L (98-107); Globulin 3.3 g/dL (1.3-4.6); Glomerular Filtration Rate 121.4 mL/min (90-130); Glucose 84 mg/dL (65-115); Osmolality Calculated 301 mOsm/kg (285-295); Sodium 145 mmol/L (136-145); Total Bilirubin 0.3 mg/dL (0.15-1.2); Total Protein 7.6 g/dL (6.6-8.7)
[2022-12-30 19:42] LABS: Acetaminophen < 5.0 ug/mL (10-30); Salicylate < 0.3 mg/dL (3-10)
[2022-12-30 20:53] VITALS: BP 102/67; PULSE 98; RESP 16; TEMP 36.7; O2SAT 96
[2022-12-30 21:13] VITALS: BP 139/88; PULSE 95; RESP 18; TEMP 36.4; O2SAT 98
[2022-12-30 22:00] VITALS: BP 139/88; PULSE 95; RESP 18; TEMP 36.4; O2SAT 98
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
[2022-12-30] MEDS: acetaminophen 325 mg Tablet 650 MG PO (22:21)
[2022-12-30] MEDS: trazodone 50 mg Tablet PO (22:21)
[2022-12-30] MEDS: LORazepam 2 mg Tablet PO (23:08)
[2022-12-31 06:00] VITALS: RESP 16
--- NOTE | 2022-12-31 06:02 | PC.NURSE ---
Asked pt multiple times to obtain vital signs. Pt refused. Respiration Rate 16.
[2022-12-31 06:06] VITALS: RESP 16
[2022-12-31] MEDS: multivitamin therapeutic Tablet 1 TAB PO (08:29)
[2022-12-31] MEDS: thiamine 100 mg Tablet PO (08:29)
[2022-12-31] MEDS: folic acid 1 mg Tablet PO (08:29)
[2022-12-31] MEDS: LORazepam 2 mg Tablet PO ×2 (11:24→20:33)
--- NOTE | 2022-12-31 11:25 | PC.NURSE ---
Patient states he is feeling itchy and very anxious. He is visibly shaking and sweating. Patient administered ativan 2mg po.
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
[2022-12-31 14:00] VITALS: BP 128/77; PULSE 93; RESP 16; TEMP 36.6; O2SAT 97
[2022-12-31 20:15] VITALS: BP 146/87; PULSE 80; RESP 16; TEMP 37.1; O2SAT 96
[2022-12-31] MEDS: tamsulosin 0.4 mg Capsule PO (20:22)
[2022-12-31] MEDS: acetaminophen 325 mg Tablet 650 MG PO (20:22)
[2022-12-31] MEDS: PARoxetine 20 mg Tablet PO (20:23)
[2022-12-31] MEDS: quetiapine 100 mg Tablet 200 MG PO (20:23)
[2022-12-31] MEDS: nicotine 2 mg Gum BUCCAL (20:39)
--- NOTE | 2022-12-31 20:48 | PC.NURSE ---
Addendum entered and electronically signed by Yareli Medina RN 01/01/23 02:57: PRN MEDICATIONS GIVEN WERE EFFECTIVE. PT HAS BEEN RESTING WITH EYES CLOSED SINCE HE RECEIVED THEM Original Note: PT WAS OBSERVED SLEEPING AT START OF SHIFT. AROUSES TO VOICE TO COMPLETE ASSESSMENT. BED SETTER COMPLETED ASSESSMENT WITH RN AT SIDE. PT DENIES SI/HI AND AVH AT THIS TIME. PT REPORTS PAIN 7/10 IN BACK, TYLENOL WAS GIVEN, SEE MAR FOR DETAILS AND TIMES. PT DOES NOT APPEAR TO BE VISUALLY AGITATED, BUT DOES REPORT SYMPTOMS OF ANXIETY AND AGITATION CIWA ASSESSMENT COMPLETED AND PT SCORED 12, ATIVAN 2 MG WAS GIVEN PER CIWA PROTOCOL. PT REPORTS SENSITIVITY TO LIGHT, AUDITORY DISTURBANCES, HEADACHE, NAUSEA, ANXIETY, PERSPIRATION AND HAS FELT TREMORS. PT TOOK MEDICATIONS AND WENT TO DAY ROOM TO WATCH TV. SUPPORT VOICED.
[2023-01-01 06:00] VITALS: BP 128/91; PULSE 80; RESP 17; O2SAT 94
[2023-01-01] MEDS: thiamine 100 mg Tablet PO (09:29)
[2023-01-01] MEDS: multivitamin therapeutic Tablet 1 TAB PO (09:29)
[2023-01-01] MEDS: nicotine 2 mg Gum BUCCAL (09:29)
[2023-01-01] MEDS: folic acid 1 mg Tablet PO (09:29)
[2023-01-01] MEDS: LORazepam 2 mg Tablet PO (11:48)
--- NOTE | 2023-01-01 11:49 | P.NPUPN_ITS ---
Subjective NPU Subjective: Patient is a 47-year-old white male admitted with homicidal ideation depression with a history of mood disorder and alcohol dependence. The patient denied any manic symptoms. He had continued report alcohol withdrawal symptoms and had received lorazepam for mild withdrawal. He had expressed some interest in consideration for outpatient substance abuse treatment. He had reiterated that his Latuda had been helpful for his mood. He had minimized any racing thoughts nor did he endorse any overt problems with hypomanic symptoms. He had acknowledged having depression in the past. He had reported continued feelings of hopelessness and continue to report feeling horrible as he stated that he was feeling shaky . Mental Status Exam MSE Comments: This is a 47-year-old thin, male who appears approximately his stated age and is in moderate distress. He was cooperative with the examination. He is in bed in the med-surg unit in [facility]. He was poorly groomed with poor hygiene. There was evidence of psychomotor retardation. There was a mild tremor appreciated. Speech is at a regular rate and rhythm, normal volume, good articulation, not pressured. He was alert and oriented to person place and time. His attention span appeared adequate. His recent and remote memory appeared grossly intact. His thought process was linear logical and goal-directed. His thought content showed no evidence of homicidal or suicidal ideation elicited. He had endorsed a sense of hopelessness. There was no clear evidence of delusional thinking. He did not appear to be responding to internal stimuli. His mood was described as depressed. His affect was restricted in range and mood-congruent. His insight and judgment appeared to be poor. His impulse control is poor. Cognition: Patient Appearance: Appropriate Level of Consciousness: Awake, Alert, Appropriate and Follows Commands Patient Cognition Impaired: No Ability to Follow Directions: Good Patient Orientation (long list): Person, Place, Time, Name, Age, Birthday, Day of Month, Day of Week, Month, Time of Day and Year Comprehension Ability: No Impairment Hallucination Type: None Delusion Description: Not Present Thought Process: Blocking Affect: Affect Description: Appropriate, Anxious and Calm Behavior: Patient Behavior: Cooperative Speech Pattern: Appropriate and Clear Vitals/I&O/Wt Last Vital Signs Temp 98.7 F 12/31/22 20:15 Pulse 80 01/01/23 06:00 Resp 17 01/01/23 06:00 BP 128/91 01/01/23 06:00 Pulse Ox 94 01/01/23 06:00 O2 Del Method Room Air 01/01/23 06:00 Weight last 48 hrs Weight 72.575 kg Data NPU 12/30/22 18:30 12/30/22 18:30 A&P Assessment and plan (1) Bipolar depression: (2) Homicidal ideation: (3) Alcohol dependence: (4) Anxiety disorder, unspecified: Plan 47-year-old male with alcohol dependence and reported history of bipolar disorder currently endorsing increased problems in the home with worsening depression and increase sense of hopelessness. Patient would likely benefit from acute inpatient stay with adjustment in his medications. He would likely benefit from inpatient treatment for alcohol abuse as well. ?1.? ? Engage? patient in individual ,milieu, and group therapy 2. ? We will attempt to gather collateral information from previous providers ?3. ? TO-15 minute checks on the unit. 4.? Recommend sober living treatment at the highest level of care to which the patient is willing to commit. ?5. ? CIWA protocol, Will restart Latuda 40mg at 6PM with food and continue seroquel at 200mg at night. Increase Paxil 30mg at night. Involuntary Hold Information 96 Hour Hold: 96 Hour Involuntary Admission: No Attestations NPU Medical Necessity Statement*: Inpatient hospitalization is medically necessary and be clinically appropriate vet at this time.? We will monitor/initiate medications and make changes as indicated.? His likely length of stay 3-5 days. Coding Level of Care Code Acute Code for [facility] Fw Diagnoses Bipolar depression F31.9 Homicidal ideation R45.850 Alcohol dependence F10.20 Anxiety disorder, unspecified F41.9
[2023-01-01 14:00] VITALS: BP 112/74; PULSE 91; RESP 20; TEMP 36.8; O2SAT 98
[2023-01-01] MEDS: lurasidone 80 mg Tablet 40 MG PO (16:33)
[2023-01-01] MEDS: PARoxetine 20 mg Tablet 30 MG PO (20:12)
[2023-01-01] MEDS: tamsulosin 0.4 mg Capsule PO (20:13)
[2023-01-01] MEDS: quetiapine 100 mg Tablet 200 MG PO (20:13)
[2023-01-01 20:45] VITALS: BP 131/86; PULSE 95; RESP 18; TEMP 36.4; O2SAT 98
[2023-01-02 06:00] VITALS: BP 117/79; PULSE 75; RESP 18; O2SAT 98
[2023-01-02] MEDS: multivitamin therapeutic Tablet 1 TAB PO (08:14)
[2023-01-02] MEDS: thiamine 100 mg Tablet PO (08:14)
[2023-01-02] MEDS: folic acid 1 mg Tablet PO (08:14)
[2023-01-02] MEDS: nicotine 2 mg Gum BUCCAL ×3 (08:14→18:13)
[2023-01-02] MEDS: LORazepam 2 mg Tablet PO (09:32)
[2023-01-02 12:46] VITALS: BP 133/81; PULSE 98; RESP 15; TEMP 36.6; O2SAT 97
--- NOTE | 2023-01-02 12:50 | PC.NURSE ---
PT CAME TO NURSES STATION AT 930 AM REQUESTING MY ATIVAN I NEED IT NOW. CIWA WAS COMPLETED. PT SCORED 20. REPORTS NAUSEA, AUDITORY ISSUES, HEADACHE, ITCHING, UNABLE TO REPORT THE DATE AND INCREASED ANXIETY AND AGITATION. PT WAS ADMINISTERED ATIVAN 2 MG PO ORDERED PER CIWA PROTOCOL. PT HAS BEEN RESTING IN BED SINCE THEN. MEDICATION WAS EFFECTIVE. UPDATE GIVEN TO PTS RN.
[2023-01-02] MEDS: hyDROXYzine 25 mg Capsule 50 MG PO (13:31)
--- NOTE | 2023-01-02 15:36 | W.PM.NPUPNS ---
Subjective NPU Subjective: Patient is a 47-year-old white male admitted with homicidal ideation , bipolar depression with a history of mood disorder and alcohol dependence. The patient denied any manic symptoms. He had not complained of any overt alcohol withdrawal symptoms and received 1 mg of Ativan yesterday. He had expressed a desire to return to outpatient clinic for his substance abuse and his mood related treatment. He had reported that he could not return home and had appeared homeless at this time. He was given options of considering an inpatient treatment in [place] but had rejected it ultimately earlier this afternoon. He had expressed desire to return home. He had minimal cooperation and appeared minimally engaged in milieu treatment here. He had reported an extended history of alcohol abuse but continued to show evidence of not being ready at this time to discontinue his alcohol use. Mental Status Exam MSE Comments: This is a 47-year-old thin, male who appears approximately his stated age and is in moderate distress. He was cooperative with the examination. He is in bed in the med-surg unit in [facility]. He was poorly groomed with poor hygiene. There was evidence of psychomotor retardation. There was a minimal tremor appreciated. Speech is at a regular rate and rhythm, normal volume, good articulation, not pressured. He was alert and oriented to person place and time. His attention span appeared adequate. His recent and remote memory appeared grossly intact. His thought process was linear logical and goal-directed. His thought content showed no evidence of homicidal or suicidal ideation elicited. There was no clear evidence of delusional thinking. He did not appear to be responding to internal stimuli. His mood was described as depressed. His affect was restricted in range and mood-congruent. His insight was feeble and judgment appeared to be poor. His impulse control is poor. Vitals/I&O/Wt Last Vital Signs Temp 98 F 01/02/23 12:46 Pulse 98 01/02/23 12:46 Resp 15 01/02/23 12:46 BP 133/81 01/02/23 12:46 Pulse Ox 97 01/02/23 12:46 O2 Del Method Room Air 01/02/23 06:00 Data NPU 12/30/22 18:30 12/30/22 18:30 A&P Assessment and plan (1) Bipolar depression: (2) Homicidal ideation: (3) Alcohol dependence: (4) Anxiety disorder, unspecified: Plan 47-year-old male with alcohol dependence and reported history of bipolar disorder currently endorsing increased problems in the home with worsening depression and increase sense of hopelessness. Patient would likely benefit from acute inpatient stay with adjustment in his medications. He would likely benefit from inpatient treatment for alcohol abuse as well. ?1.? ? Engage? patient in individual ,milieu, and group therapy 2. ? We will attempt to gather collateral information from previous providers ?3. ? TO-15 minute checks on the unit. 4.? Recommend sober living treatment at the highest level of care to which the patient is willing to commit. ?5. ? CIWA protocol, Continue Latuda 40mg at 6PM with food and continue seroquel at 200mg at night. Increase Paxil 40mg at night to target anxiety. Involuntary Hold Information 96 Hour Hold: 96 Hour Involuntary Admission: No Attestations NPU Medical Necessity Statement*: Inpatient hospitalization is medically necessary and be clinically appropriate vet at this time.? We will monitor/initiate medications and make changes as indicated.? His likely length of stay 1-2 days. Coding Level of Care Code Acute Code for g Fwd Diagnoses Bipolar depression F31.9 Homicidal ideation R45.850 Alcohol dependence F10.20 Anxiety disorder, unspecified F41.9
[2023-01-02] MEDS: lurasidone 80 mg Tablet 40 MG PO (18:10)
[2023-01-02] MEDS: OLANZapine 5 mg ODT PO (18:10)
[2023-01-02 20:21] VITALS: BP 133/93; PULSE 93; RESP 16; TEMP 36.7; O2SAT 97
[2023-01-02] MEDS: PARoxetine 20 mg Tablet 40 MG PO (20:22)
[2023-01-02] MEDS: tamsulosin 0.4 mg Capsule PO (20:22)
[2023-01-02] MEDS: quetiapine 100 mg Tablet 200 MG PO (20:23)
[2023-01-03 06:00] VITALS: BP 120/78; PULSE 102; RESP 16; O2SAT 97
[2023-01-03] MEDS: thiamine 100 mg Tablet PO (08:47)
[2023-01-03] MEDS: multivitamin therapeutic Tablet 1 TAB PO (08:47)
[2023-01-03] MEDS: folic acid 1 mg Tablet PO (08:47)
[2023-01-03] MEDS: nicotine 2 mg Gum BUCCAL ×2 (09:11→14:58)
[2023-01-03 14:00] VITALS: BP 127/88; PULSE 109; RESP 20; TEMP 36.5; O2SAT 97
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
[2023-01-03 16:38] VITALS: BP 120/78; PULSE 102; RESP 16; O2SAT 97
[2023-01-03] MEDS: lurasidone 80 mg Tablet 40 MG PO (16:58)
== END 2023-01-03 17:13 | disposition home or self-care (01) | DRG 897 ==
LOC: ER 20:35 → NP 20:38
PROVIDERS: Emergency Medicine; Admitting Provider Psychiatry & Neurology Psychiatry; Emergency Provider Emergency Medicine; Visit Provider Psychiatry & Neurology Psychiatry
DX: F10.229 Alcohol dependence with intoxication, unspecified (principal); F31.9 Bipolar disorder, unspecified; R45.850 Homicidal ideations; Y90.8 Blood alcohol level of 240 mg/100 ml or more; F39 Unspecified mood [affective] disorder; F41.9 Anxiety disorder, unspecified; Z62.810 Personal history of physical and sexual abuse in childhood; Z62.811 Personal history of psychological abuse in childhood
CPT/HCPCS: 36415; 80053; 80306; 80307; 81003; 85025; 97150; 97165; 99238; 99285

== ENCOUNTER 2023-01-25 23:03 | Emergency (ER) | payer MEDICAID, SELFPAY ==
[2023-01-25 23:22] VITALS: BP 110/72; PULSE 85; RESP 15; TEMP 36.9; O2SAT 91; BMI 19.5
[2023-01-26 00:05] VITALS: BP 96/62; PULSE 80; O2SAT 90
[2023-01-26 00:05] LABS: Add Urine Microscopic? NO; Charge for UA Resulting for Rev
[2023-01-26 00:18] LABS: Bilirubin Urine Neg (Negative); Blood Urine Neg (Negative); Glucose Urine UA Norm (Normal); Ketones Urine Negative (Negative); Leukocyte Esterase Urine Negative (Negative); Nitrate Urine Negative (Negative); Protein Urine Neg (Negative); Specific Gravity, Urine 1.005 (1.005-1.030); Urine Appearance Clear (CLEAR); Urine Color Colorless (Yellow); Urobilinogen Urine Norm (Negative); pH Urine 7 (5-7)
[2023-01-26 00:43] LABS: Amphetamines Screen Urine Negative (Negative); Barbiturates Screen Urine Negative (Negative); Benzodiazepines Screen Urine Negative (Negative); Cocaine Screen Urine Negative (Negative); Opiate Screen Urine Negative (Negative); PCP Screen Urine Negative (Negative); THC Screen Urine Negative (Negative)
[2023-01-26 00:46] LABS: Basophils % 0.3 %; Eosinophils # 0.2 10^3/uL (0.0-0.8); Eosinophils % 2.7 %; Hematocrit 44.1 % (37-53); Lymphocytes # 2.4 10^3/uL (0.8-4.8); Lymphocytes % 33.6 %; Mean Corpuscular HGB Conc 33.1 g/dL (30-55); Mean Corpuscular Hemoglobin 36.6 pg (27-33); Mean Corpuscular Volume 110.5 fl (82-101); Mean Platelet Volume 8.9 fL (7.4-10.4); Monocytes # 0.7 10^3/uL (0.2-0.9); Monocytes % 9.9 %; Neutrophils # 3.77 10^3/uL (1.8-7.7); Neutrophils % 53.1 %; Nucleated Red Blood Cells % 0 %; Platelet Count 291 10^3/cmm (157-399); Red Blood Count 3.99 10^6/uL (3.85-5.65); White Blood Count 7.09 10^3/uL (3.29-11.43)
[2023-01-26 01:00] LABS: Alanine Aminotransferase 21 U/L (0-41); Alcohol Level 283 mg/dL (0-10); Alkaline Phosphatase 84 U/L (40-130); Anion Gap 11.8 (5-19); Aspartate Amino Transferase 15 U/L (0-40); Blood Urea Nitrogen 15 mg/dL (6-20); Calcium 8.3 mg/dL (8.5-10.5); Carbon Dioxide 26 mmol/L (22-29); Chloride 109 mmol/L (98-107); Globulin 2.7 g/dL (1.3-4.6); Glomerular Filtration Rate 104.1 mL/min (90-130); Glucose 86 mg/dL (65-115); Osmolality Calculated 296 mOsm/kg (285-295); Potassium 3.8 mmol/L (3.5-5.1); Salicylate 0.4 mg/dL (3-10); Sodium 143 mmol/L (136-145); Total Bilirubin 0.2 mg/dL (0.15-1.2); Total Protein 6.7 g/dL (6.6-8.7)
[2023-01-26 01:05] VITALS: BP 97/60; PULSE 87; O2SAT 90
[2023-01-26 01:05] LABS: Acetaminophen < 5.0 ug/mL (10-30)
--- NOTE | 2023-01-26 04:23 | ED_ITS ---
HPI - Alcohol General: Chief Complaint: Alcohol Stated Complaint: ETOH Time Seen by Provider: 01/25/23 23:20 Source: patient History of Present Illness: 47-year-old male patient presents intoxicated. He was found by police and they called EMS. He has no specific complaint other than being intoxicated. He was evidently in an argument with his earlier in the day. He denies any suicidal or homicidal ideation to me in the ER. He does have some feeling of helplessness and hopelessness. Associated symptoms: Reports abdominal pain and nausea; Deny vomiting Review of Systems Const: Denies: fever(s) Eyes: Denies: change in vision Card: Denies: chest pain Resp: Denies: dyspnea, productive cough or non-productive cough GI: Reports: abdominal pain and nausea; Denies: vomiting PFSH ED PFSH: Medical History Adjustment disorder with mixed disturbance of emotions and conduct Alcohol use disorder -Has known history of alcohol abuse&DT Bipolar 1 disorder, manic, mild Depressive disorder, not elsewhere classified Methamphetamine abuse -UDS positive for amphetamines/THC Surgical History H/O hernia repair History of appendectomy Family History Other Alcoholism /alcohol abuse Social History Quit status (tobacco): has tried quititng Number of times tried to quit tobacco: 4 Second hand smoke exposure: Yes Alcohol intake: current Substance/Drug Use: current Current gender identity: Male Physical Exam Const: COMMON NORMALS: no acute distress GENERAL APPEARANCE: cooperative and lethargic; not ill appearing and not frail appearing ORIENTATION/CONSCIOUSNESS: Yes lethargic HENMT: COMMON NORMALS: normocephalic, atraumatic and Normal external nose present HEAD & SCALP: normocephalic and atraumatic FACE & SINUS: normal facial exam and face symmetric NOSE: Normal external nose present Eye: COMMON NORMALS: Equal, round and reactive pupils present and EOMs intact bilaterally PUPIL: Yes Equal, round and reactive pupils present Neck/C-Spine: GENERAL: Yes trachea midline Chest: CHEST: Yes Symmetrical chest wall rise Resp: COMMON NORMALS: normal respiratory effort, No retractions, No use of accessory muscles and clear to auscultation bilaterally AUSCULTATION: clear to auscultation bilaterally Cardio: COMMON NORMALS: regular rate and regular rhythm RATE: regular rate RHYTHM: regular rhythm GI: COMMON NORMALS: Normal to inspection, nondistended, normoactive bowel sounds present Extremity: COMMON NORMALS: no pedal edema Neuro: WILMER COMA SCALE: document GCS findings Wilmer coma scale eye opening: Spontaneous Wilmer coma scale verbal response: Orientated Wilmer coma scale motor response: Obey commands Wilmer coma scale total score: 15 SENSORIUM/ORIENTATION: Yes lethargic SENSORY EXAM: Yes extremities (intact) Psych: COMMON NORMALS: speech normal SPEECH: Yes normal speech Skin: COMMON NORMALS: no rashes or lesions noted GENERAL SKIN EXAM: no rashes or lesions noted Course Vital Signs: Vital signs: Vital Signs Temperature 98.5 F 01/25/23 23:22 Pulse Rate 87 01/26/23 01:05 Respiratory Rate 15 01/25/23 23:22 Blood Pressure 97/60 01/26/23 01:05 Pulse Oximetry 90 01/26/23 01:05 Oxygen Delivery Me thod Room Air 01/26/23 01:05 MDM - Alcohol Medical Decision Making The patient was allowed to sleep in the emergency department. He gauze no problems. He continues to deny suicidal or homicidal ideation. Medically he is stable. Laboratory is not terribly remarkable, save his alcohol level of 283. Urine drug screen is negative. Urinalysis is negative. He will be allowed home. Outpatient follow-up. He is encouraged to abstain from alcohol. Lab Data 01/26/23 00:10 01/25/23 00:10 Laboratory Results WBC 7.09 10^3/uL (3.29-11.43) 01/26/23 00:10 RBC 3.99 10^6/uL (3.85-5.65) 01/26/23 00:10 Hgb 14.60 g/dL (11.27-16.99) 01/26/23 00:10 Hct 44.1 % (37-53) 01/26/23 00:10 MCV 110.5 fl (82-101) H 01/26/23 00:10 MCH 36.6 pg (27-33) H 01/26/23 00:10 MCHC 33.1 g/dL (30-55) 01/26/23 00:10 RDW 13.0 % (12.1-15.1) 01/26/23 00:10 Plt Count 291 10^3/cmm (157-399) 01/26/23 00:10 MPV 8.9 fL (7.4-10.4) 01/26/23 00:10 Neut % (Auto) 53.1 % 01/26/23 00:10 Lymph % (Auto) 33.6 % 01/26/23 00:10 [place] % (Auto) 9.9 % 01/26/23 00:10 Eos % (Auto) 2.7 % 01/26/23 00:10 Baso % (Auto) 0.3 % 01/26/23 00:10 Neut # (Auto) 3.77 10^3/uL (1.8-7.7) 01/26/23 00:10 Lymph # (Auto) 2.4 10^3/uL (0.8-4.8) 01/26/23 00:10 [place] # (Auto) 0.7 10^3/uL (0.2-0.9) 01/26/23 00:10 Eos # (Auto) 0.2 10^3/uL (0.0-0.8) 01/26/23 00:10 Baso # (Auto) 0.0 10^3/uL (0.0-0.1) 01/26/23 00:10 Nucleated RBC % (auto) 0 % 01/26/23 00:10 Nucleated RBCs # 0.0 /100WBC 01/26/23 00:10 Sodium 143 mmol/L (136-145) 01/25/23 00:10 Potassium 3.8 mmol/L (3.5-5.1) 01/25/23 00:10 Chloride 109 mmol/L (98-107) H 01/25/23 00:10 Carbon Dioxide 26 mmol/L (22-29) 01/25/23 00:10 Anion Gap 11.8 (5-19) 01/25/23 00:10 BUN 15 mg/dL (6-20) 01/25/23 00:10 Creatinine 0.8 mg/dL (0.7-1.2) 01/25/23 00:10 GFR Calculation 104.1 mL/min (90-130) 01/25/23 00:10 Glucose 86 mg/dL (65-115) 01/25/23 00:10 Calculated Osmolality 296 mOsm/kg (285-295) H 01/25/23 00:10 Calcium 8.3 mg/dL (8.5-10.5) L 01/25/23 00:10 Total Bilirubin 0.2 mg/dL (0.15-1.2) 01/25/23 00:10 AST 15 U/L (0-40) 01/25/23 00:10 ALT 21 U/L (0-41) 01/25/23 00:10 Alkaline Phosphatase 84 U/L (40-130) 01/25/23 00:10 Total Protein 6.7 g/dL (6.6-8.7) 01/25/23 00:10 Albumin 4.0 g/dL (3.5-5.2) 01/25/23 00:10 Globulin 2.7 g/dL (1.3-4.6) 01/25/23 00:10 Urine Color Colorless (Yellow) 01/25/23 23:38 Urine Appearance Clear (CLEAR) 01/25/23 23:38 Urine pH 7 (5-7) 01/25/23 23:38 Ur Specific [place] 1.005 (1.005-1.030) 01/25/23 23:38 Urine Protein Neg (Negative) 01/25/23 23:38 Urine Glucose (UA) Norm (Normal) 01/25/23 23:38 Urine Ketones Negative (Negative) 01/25/23 23:38 Urine Blood Neg (Negative) 01/25/23 23:38 Urine Nitrate Negative (Negative) 01/25/23 23:38 Urine Bilirubin Neg (Negative) 01/25/23 23:38 Urine Urobilinogen Norm mg/dL (Negative) 01/25/23 23:38 Ur Leukocyte Esterase Negative (Negative) 01/25/23 23:38 Salicylates 0.4 mg/dL (3-10) L 01/25/23 00:10 Urine Opiates Screen Negative ng/mL (Negative) 01/25/23 23:38 Acetaminophen < 5.0 ug/mL (10-30) L 01/25/23 00:10 Ur Barbiturates Screen Negative ng/mL (Negative) 01/25/23 23:38 Ur Phencyclidine Scrn Negative ng/mL (Negative) 01/25/23 23:38 Ur Amphetamines Screen Negative ng/mL (Negative) 01/25/23 23:38 U Benzodiazepines Scrn Negative ng/mL (Negative) 01/25/23 23:38 Urine Cocaine Screen Negative ng/mL (Negative) 01/25/23 23:38 U Marijuana (THC) Screen Negative ng/mL (Negative) 01/25/23 23:38 Ethyl Alcohol 283 mg/dL (0-10) H 01/25/23 00:10 Discharge Plan Discharge Patient Disposition: Home Clinical Impression: Alcohol intoxication Condition: Stable Prescriptions: No Action paroxetine HCl 20 mg Tablet 40 mg PO BEDTIME 30 Days Qty: 60 1RF quetiapine 200 mg tablet 200 mg PO BEDTIME Qty: 30 1RF Vistaril 50 mg Capsule 50 mg PO QID PRN (Reason: Agitation) 30 Days Qty: 120 1RF Flomax 0.4 mg Capsule 0.4 mg PO BEDTIME 30 Days Qty: 30 1RF pantoprazole 40 mg tablet,delayed release (DR/EC) 40 mg PO DAILY 30 Days Qty: 30 1RF Latuda 40 mg Tablet 40 mg PO QPM 30 Days Qty: 30 1RF Rx Instructions: must administer with food (at least 350 calories) Discharge Orders: Discharge ED (Routine); Ordered 01/26/23 Ordered By: Pete Mccurdy Patient Instructions: Alcohol Intoxication (ED), Opioid Safety, Pain Management Coding Level of Care Code ED Taping Machine Operator for Camila Alvares
== END 2023-01-26 02:19 | disposition home or self-care (01) ==
PROVIDERS: Emergency Provider Emergency Medicine
DX: F10.129 Alcohol abuse with intoxication, unspecified (principal); Y90.8 Blood alcohol level of 240 mg/100 ml or more; Z87.891 Personal history of nicotine dependence
CPT/HCPCS: 36415; 80053; 80306; 80307; 81003; 85025; 99283

== ENCOUNTER 2023-01-28 17:13 | Emergency (ER) | payer MEDICAID, SELFPAY ==
[2023-01-28 17:16] VITALS: BP 131/88; PULSE 98; RESP 20; TEMP 36.6; O2SAT 95; BMI 25.0
--- NOTE | 2023-01-28 17:24 | ED_ITS ---
Documented by User: Cruzito Morocho DO 01/30/23 15:25 HPI - Alcohol General: Chief Complaint: Alcohol Stated Complaint: etoh Time Seen by Provider: 01/28/23 17:14 Source: patient Mode of arrival: ambulatory History of Present Illness: 47-year-old male presents emergency room via EMS. He was found down by PD poorly responsive highly intoxicated. On arrival here he acknowledges that he is highly intoxicated. When asked if he needs anything or if he was hurt he said his heart hurt because he could not give his daughter hudale but has no other specific complaints is difficult to even discuss anything with him because of his high level of intoxication he has no evidence of injury. EMS stated he did not report any specific injury or problem to them either they were simply called because of his high level of intoxication. He is able to manage his airway he is not actively vomiting. MD complaint: alcohol intoxication [facility] ED PFSH: Medical History Adjustment disorder with mixed disturbance of emotions and conduct Alcohol use disorder -Has known history of alcohol abuse&DT Atrial fibrillation Bipolar 1 disorder, manic, mild Depressive disorder, not elsewhere classified Methamphetamine abuse -UDS positive for amphetamines/THC Surgical History H/O hernia repair History of appendectomy Family History Other Alcoholism /alcohol abuse Social History Quit status (tobacco): has tried quititng Number of times tried to quit tobacco: 4 Second hand smoke exposure: Yes Alcohol intake: current Substance/Drug Use: current Current gender identity: Male Physical Exam Const: ORIENTATION/CONSCIOUSNESS: Yes awake HENMT: COMMON NORMALS: normocephalic, atraumatic and hearing grossly normal bilaterally HEAD & SCALP: normocephalic and atraumatic Resp: COMMON NORMALS: normal respiratory effort, No retractions, No use of accessory muscles and clear to auscultation bilaterally AUSCULTATION: clear to auscultation bilaterally Cardio: COMMON NORMALS: regular rate, regular rhythm and No murmurs present (Cardio) RATE: regular rate RHYTHM: regular rhythm GI: COMMON NORMALS: Soft to palpation and No hepatosplenomegaly present AUSCULTATION: Yes normoactive bowel sounds PALPATION: Yes Soft to palpation, No Tenderness to palpation present (GI), No Guarding due to palpation present (GI) and Yes No hepatosplenomegaly present Extremity: COMMON NORMALS: normal to inspection, capillary refill normal, no clubbing, cyanosis or edema, no calf tenderness and no pedal edema Skin: COMMON NORMALS: no rashes or lesions noted GENERAL SKIN EXAM: no rashes or lesions noted Course Vital Signs: Vital signs: Vital Signs Temperature 97.9 F 01/28/23 17:16 Pulse Rate 98 01/28/23 17:16 Respiratory Rate 20 H 01/28/23 17:16 Blood Pressure 131/88 01/28/23 17:16 Pulse Oximetry 95 01/28/23 17:16 Oxygen Delivery Me thod Room Air 01/28/23 17:16 MDM - Alcohol Medical Decision Making Patient highly intoxicated. Difficult to obtain history from he denies any specific problems. He is very inappropriate with female staff. Was redirected several times. Patient presents here with alcohol intoxication he is now awake alert able ambulate he is answering questions appropriately he has medical decision-making capacity he had ripped his IV out he is stable for discharge she is to follow-up with PCP and return if worsening he understands agrees to plan he is not suicidal or homicidal. Discharge Plan Discharge Patient Disposition: Home Clinical Impression: Alcohol intoxication Condition: Stable Prescriptions: No Action paroxetine HCl 20 mg Tablet 40 mg PO BEDTIME 30 Days Qty: 60 1RF quetiapine 200 mg tablet 200 mg PO BEDTIME Qty: 30 1RF hydroxyzine pamoate [Vistaril] 50 mg Capsule 50 mg PO QID PRN (Reason: Agitation) 30 Days Qty: 120 1RF tamsulosin [Flomax] 0.4 mg Capsule 0.4 mg PO BEDTIME 30 Days Qty: 30 1RF pantoprazole 40 mg tablet,delayed release (DR/EC) 40 mg PO DAILY 30 Days Qty: 30 1RF lurasidone [Latuda] 40 mg Tablet 40 mg PO QPM 30 Days Qty: 30 1RF Rx Instructions: must administer with food (at least 350 calories) Discharge Orders: Discharge ED (Routine); Ordered 08/28/23 Ordered By: Fransisco Berry Discharge Diet: Advance as tolerated Discharge Activity: Resume usual activity Patient Instructions: Alcohol Intoxication (ED) Coding Level of Care Code ED Import/Export Clerk for Chg Fwd Documented by User: Fransisco Berry MD 01/28/23 20:04 HPI - Alcohol General: Chief Complaint: Alcohol Stated Complaint: etoh Time Seen by Provider: 01/28/23 17:14 PFSH ED PFSH: Medical History Adjustment disorder with mixed disturbance of emotions and conduct Alcohol use disorder -Has known history of alcohol abuse&DT Atrial fibrillation Bipolar 1 disorder, manic, mild Depressive disorder, not elsewhere classified Methamphetamine abuse -UDS positive for amphetamines/THC Surgical History H/O hernia repair History of appendectomy Family History Other Alcoholism /alcohol abuse Social History Quit status (tobacco): has tried quititng Number of times tried to quit tobacco: 4 Second hand smoke exposure: Yes Alcohol intake: current Substance/Drug Use: current Current gender identity: Male Course Vital Signs: Vital signs: Vital Signs Temperature 97.9 F 01/28/23 17:16 Pulse Rate 98 01/28/23 17:16 Respiratory Rate 20 H 01/28/23 17:16 Blood Pressure 131/88 01/28/23 17:16 Pulse Oximetry 95 01/28/23 17:16 Oxygen Delivery Me thod Room Air 01/28/23 17:16 MDM - Alcohol Medical Decision Making Patient presents here with alcohol intoxication he is now awake alert able ambulate he is answering questions appropriately he has medical decision-making capacity he had ripped his IV out he is stable for discharge she is to follow-up with PCP and return if worsening he understands agrees to plan he is not suicidal or homicidal. Medical Records I reviewed the patient's medical records. Lab Data I reviewed the patient's lab results. Discharge Plan Discharge Patient Disposition: Home Clinical Impression: Alcohol intoxication Condition: Stable Prescriptions: No Action paroxetine HCl 20 mg Tablet 40 mg PO BEDTIME 30 Days Qty: 60 1RF quetiapine 200 mg tablet 200 mg PO BEDTIME Qty: 30 1RF hydroxyzine pamoate [Vistaril] 50 mg Capsule 50 mg PO QID PRN (Reason: Agitation) 30 Days Qty: 120 1RF tamsulosin [Flomax] 0.4 mg Capsule 0.4 mg PO BEDTIME 30 Days Qty: 30 1RF pantoprazole 40 mg tablet,delayed release (DR/EC) 40 mg PO DAILY 30 Days Qty: 30 1RF lurasidone [Latuda] 40 mg Tablet 40 mg PO QPM 30 Days Qty: 30 1RF Rx Instructions: must administer with food (at least 350 calories) Discharge Orders: Discharge ED (Routine); Ordered 01/28/23 Ordered By: Fransisco Berry Discharge Diet: Advance as tolerated Discharge Activity: Resume usual activity Patient Instructions: Alcohol Intoxication (ED) Coding Level of Care Code ED Import/Export Clerk for Camila Alvares
[2023-01-28] MEDS: lactated ringers 1,000 ML 999 ML IV ×2 (18:12→19:34)
[2023-01-28] MEDS: ondansetron 2 mg/ML SDV 2 mL 4 MG IVP (18:13)
[2023-01-28] MEDS: pantoprazole 40 mg SDV 80 MG IVP (18:14)
--- NOTE | 2023-01-28 20:05 | PC.NURSE ---
Patient woke up at approximately 8 pm and stated that he needed to urinate, got very mad and belligerent and demanded to have his IV taken out and he was going home. Patient was given a urinal and then stated that he could not urinate with me in the doorway and that he needed the door shut to urinate. I then shut the door and gave him 5 minutes, I then asked him if he was done urinating and I opened the door and he was bleeding onto the floor because he was attempting to rip his IV out himself. I then told him to calm down and I would take his IV out and he continued to cuss and yell let me the fuck out so I then took his IV out, had him sign the discharge papers, he refused to take his discharge papers so I walked him out to the front door.
== END 2023-01-28 20:21 | disposition home or self-care (01) ==
PROVIDERS: Emergency Provider Emergency Medicine
DX: F10.129 Alcohol abuse with intoxication, unspecified (principal); Y90.9 Presence of alcohol in blood, level not specified; F17.210 Nicotine dependence, cigarettes, uncomplicated
CPT/HCPCS: 96361; 96374; 96375; 99284; C9113; J2405; J7120

== ENCOUNTER 2023-01-30 07:59 | Inpatient (IN) | payer MEDICAID, SELFPAY ==
[2023-01-30] VITALS (119 sets, daily range): BP systolic 80–140; BP diastolic 52–103; PULSE 77–155; RESP 14–34; TEMP 36.1–37.1; O2SAT 64–100
--- NOTE | 2023-01-30 08:23 | XR_ITS ---
WS: [id number] Exam: XR chest 1V portable [id number] Date/Time of Exam: 01/30/2023 8:26 AM Reason For Exam: dyspnea/cough Comparison 12/28/2022. The lungs are fully expanded and clear. Normal cardiomediastinal silhouette. No pleural effusions. Old fracture deformity of the proximal LEFT humerus and at least one old left-josi ed rib fracture. IMPRESSION: 1. No acute cardiopulmonary finding.
--- NOTE | 2023-01-30 08:38 | ED_ITS ---
HPI - SOB/Dyspnea General: Chief Complaint: Shortness of Breath/Dyspnea Stated Complaint: Weakness, SOB, states he is intoxicated Time Seen by Provider: 01/30/23 08:00 Source: patient Mode of arrival: ambulatory History of Present Illness: HPI Narrative: 47-year-old male presents emergency complaining of weakness shortness of breath. Patient is a chronic alcoholic with frequent blood alcohol was in excess of 400 during which he is fully functional. He states he has not been drinking as much the last day or 2 he just drank a pint this morning to adenike some of the tremors. He is also complaining of some chest tightness and shortness of breath he does not have a productive cough. MD elicited complaint: shortness of breath and cough Exacerbating factors: nothing Relieving factors: nothing Associated symptoms: Deny abdominal pain, chest congestion, chest pain, cough, diaphoresis, dizziness, extremity pain, fever(s), hemoptysis, lightheadedness, myalgias, nausea, orthopnea, palpitations, paresthesias, polydipsia, polyuria, rash, sense of impending doom, syncope or vomiting Treatment prior to arrival: none Review of Systems Const: Denies: fever(s) or diaphoresis Card: Denies: chest pain, palpitations, lightheadedness, syncope or orthopnea Resp: Denies: hemoptysis or chest congestion GI: Denies: abdominal pain, nausea or vomiting Musc: Denies: extremity pain Neuro: Denies: dizziness Endo: Denies: polyuria or polydipsia PFSH ED PFSH: Medical History Adjustment disorder with mixed disturbance of emotions and conduct Alcohol use disorder -Has known history of alcohol abuse&DT Atrial fibrillation Atrial flutter Bipolar 1 disorder, manic, mild Depressive disorder, not elsewhere classified Methamphetamine abuse -UDS positive for amphetamines/THC Surgical History H/O hernia repair History of appendectomy Family History Other Alcoholism /alcohol abuse Social History Quit status (tobacco): has tried quititng Number of times tried to quit tobacco: 4 Second hand smoke exposure: Yes Alcohol intake: current Substance/Drug Use: current Current gender identity: Male Physical Exam Const: ORIENTATION/CONSCIOUSNESS: Yes awake HENMT: COMMON NORMALS: normocephalic, atraumatic and hearing grossly normal bilaterally HEAD & SCALP: normocephalic and atraumatic Resp: COMMON NORMALS: normal respiratory effort, No retractions, No use of accessory muscles and clear to auscultation bilaterally AUSCULTATION: clear to auscultation bilaterally Cardio: COMMON NORMALS: No murmurs present (Cardio) RHYTHM: abnormal rhythm irregularly irregular GI: COMMON NORMALS: Soft to palpation and No hepatosplenomegaly present AUSCULTATION: Yes normoactive bowel sounds PALPATION: Yes Soft to palpation, No Tenderness to palpation present (GI), No Guarding due to palpation present (GI) and Yes No hepatosplenomegaly present Extremity: COMMON NORMALS: normal to inspection, capillary refill normal, no clubbing, cyanosis or edema, no calf tenderness and no pedal edema Skin: COMMON NORMALS: no rashes or lesions noted GENERAL SKIN EXAM: no rashes or lesions noted Course Vital Signs: Vital signs: Vital Signs Temperature 97.3 F L 01/31/23 13:30 Pulse Rate 92 01/31/23 14:00 Respiratory Rate 19 H 01/31/23 14:00 Blood Pressure 137/113 01/31/23 13:30 Pulse Oximetry 96 01/31/23 14:00 Oxygen Delivery Me thod Room Air 01/31/23 14:00 MDM - SOB/Dyspnea Medical Decision Making Patient A-fib with RVR possibly withdrawing from alcohol. He has done this in the past been related to illicit drug use we will get a urine drug screen discussed with Dr. Heredia. Will admit to the ICU initially we had him on Cardizem he did not have very good response to this we switched him to amiodarone. Medical Records I reviewed the patient's medical records. Lab Data I reviewed the patient's lab results. 01/31/23 06:41 01/31/23 06:41 Labs/Radiology: Laboratory Results WBC 15.07 10^3/uL (3.29-11.43) H 01/30/23 09:01 RBC 4.96 10^6/uL (3.85-5.65) 01/30/23 09:01 Hgb 18.30 g/dL (11.27-16.99) H 01/30/23 09:01 Hct 53.3 % (37-53) H 01/30/23 09:01 MCV 107.5 fl (82-101) H 01/30/23 09:01 MCH 36.9 pg (27-33) H 01/30/23 09:01 MCHC 34.3 g/dL (30-55) 01/30/23 09:01 RDW 12.9 % (12.1-15.1) 01/30/23 09:01 Plt Count 390 10^3/cmm (157-399) 01/30/23 09:01 MPV 8.7 fL (7.4-10.4) 01/30/23 09:01 Neut % (Auto) 78.3 % 01/30/23 09:01 Lymph % (Auto) 15.1 % 01/30/23 09:01 [place] % (Auto) 5.8 % 01/30/23 09:01 Eos % (Auto) 0.3 % 01/30/23 09:01 Baso % (Auto) 0.2 % 01/30/23 09:01 Neut # (Auto) 11.80 10^3/uL (1.8-7.7) H 01/30/23 09:01 Lymph # (Auto) 2.3 10^3/uL (0.8-4.8) 01/30/23 09:01 [place] # (Auto) 0.9 10^3/uL (0.2-0.9) 01/30/23 09:01 Eos # (Auto) 0.1 10^3/uL (0.0-0.8) 01/30/23 09:01 Baso # (Auto) 0.0 10^3/uL (0.0-0.1) 01/30/23 09:01 Nucleated RBC % (auto) 0 % 01/30/23 09:01 Nucleated RBCs # 0.0 /100WBC 01/30/23 09:01 Sodium 140 mmol/L (136-145) 01/30/23 09:01 Potassium 4.3 mmol/L (3.5-5.1) 01/30/23 09:01 Chloride 93 mmol/L (98-107) L 01/30/23 09:01 Carbon Dioxide 27 mmol/L (22-29) 01/30/23 09:01 Anion Gap 24.3 (5-19) H 01/30/23 09:01 BUN 19 mg/dL (6-20) 01/30/23 09:01 Creatinine 1.0 mg/dL (0.7-1.2) 01/30/23 09:01 GFR Calculation 80.4 mL/min (90-130) L 01/30/23 09:01 Glucose 63 mg/dL (65-115) L 01/30/23 09:01 POC Glucose 73 mg/dL (70-110) 01/30/23 11:11 Calculated Osmolality 290 mOsm/kg (285-295) 01/30/23 09:01 Calcium 9.5 mg/dL (8.5-10.5) 01/30/23 09:01 Magnesium 2.2 mg/dL (1.7-2.3) 01/30/23 09:01 Total Bilirubin 1.1 mg/dL (0.15-1.2) 01/30/23 09:01 AST 69 U/L (0-40) H 01/30/23 09:01 ALT 50 U/L (0-41) H 01/30/23 09:01 Alkaline Phosphatase 164 U/L (40-130) H 01/30/23 09:01 Troponin T Baseline 25 ng/L (0-15) H 01/30/23 09:01 Troponin T 120 Minute 22.48 ng/L (0-15) H 01/30/23 11:15 Delta Troponin T -2.52 ABS# (0-10) L 01/30/23 11:15 Total Protein 8.7 g/dL (6.6-8.7) 01/30/23 09:01 Albumin 5.1 g/dL (3.5-5.2) 01/30/23 09:01 Globulin 3.6 g/dL (1.3-4.6) 01/30/23 09:01 TSH 1.98 uIU/mL (0.27-4.20) 01/30/23 09:01 Urine Color Yellow (Yellow) 01/30/23 09:01 Urine Appearance Clear (CLEAR) 01/30/23 09:01 Urine pH 7 (5-7) 01/30/23 09:01 Ur Specific [place] 1.005 (1.005-1.030) 01/30/23 09:01 Urine Protein Neg (Negative) 01/30/23 09:01 Urine Glucose (UA) Norm (Normal) 01/30/23 09:01 Urine Ketones 1+ (Negative) H 01/30/23 09:01 Urine Blood Neg (Negative) 01/30/23 09:01 Urine Nitrate Negative (Negative) 01/30/23 09:01 Urine Bilirubin Neg (Negative) 01/30/23 09:01 Urine Urobilinogen Norm mg/dL (Negative) 01/30/23 09:01 Ur Leukocyte Esterase Negative (Negative) 01/30/23 09:01 Urine Opiates Screen Negative ng/mL (Negative) 01/30/23 09:01 Ur Barbiturates Screen Negative ng/mL (Negative) 01/30/23 09:01 Ur Phencyclidine Scrn Negative ng/mL (Negative) 01/30/23 09:01 Ur Amphetamines Screen Negative ng/mL (Negative) 01/30/23 09:01 U Benzodiazepines Scrn Negative ng/mL (Negative) 01/30/23 09:01 Urine Cocaine Screen Negative ng/mL (Negative) 01/30/23 09:01 U Marijuana (THC) Screen Negative ng/mL (Negative) 01/30/23 09:01 Ethyl Alcohol 138 mg/dL (0-10) H 01/30/23 09:01 Hepatitis A IgM Ab Non-reactive (Nonreactive) 01/30/23 09:01 Hep Bs Antigen Non-reactive (Nonreactive) 01/30/23 09:01 Hep B Core IgM Ab Non-reactive (Nonreactive) 01/30/23 09:01 Hepatitis C Antibody Non-reactive (Nonreactive) 01/30/23 09:01 HIV 1&2 Ab & HIV 1 Ag Non-reactive (Non-Reactiv) 01/30/23 09:01 HIV 1&2 Antibody Non-reactive (Non-Reactiv) 01/30/23 09:01 Discharge Plan Discharge Patient Disposition: Admitted As Inpatient Admit Provider: Levon Austin Clinical Impression: Atrial fibrillation with RVR, Alcohol use disorder Condition: Stable Discharge Diet: Regular Discharge Activity: Increase activity as tolerated Coding Level of Care Code ED Tax Collector for Chg Giorgio
--- NOTE | 2023-01-30 08:41 | ECG_ITS ---
[facility] Test Date: 2023-01-30 Pat Name: Ludin Gordon Department: Room: Gender: Male Fitness Coordinator: : 1975 Requested By: Cruzito Machado Order Number: [id number] Yeni MD: Ban Alvarez M.D. Measurements Intervals [place] Rate: 148 P: 0 ID: 0 QRS: 68 QRSD: 80 T: 79 QT: 265 QTc: 416 Interpretive Statements ATRIAL FLUTTER WITH RAPID VENTRICULAR RESPONSE ABNORMAL RHYTHM ECG Electronically Signed On 01-30-2023 8:42:43 CDT by Ban Alvarez M.D. [id number]
[2023-01-30] MEDS: aluminum-mag hydrox-simethicon 30 ML, sucralfate oral liq 1 GM PO (08:44)
[2023-01-30] MEDS: LORazepam 2 mg/mL INJ 1 mL IVP ×3 (09:03→19:38)
[2023-01-30 09:14] LABS: Basophils % 0.2 %; Eosinophils # 0.1 10^3/uL (0.0-0.8); Eosinophils % 0.3 %; Hematocrit 53.3 % (37-53); Lymphocytes # 2.3 10^3/uL (0.8-4.8); Lymphocytes % 15.1 %; Mean Corpuscular HGB Conc 34.3 g/dL (30-55); Mean Corpuscular Hemoglobin 36.9 pg (27-33); Mean Corpuscular Volume 107.5 fl (82-101); Mean Platelet Volume 8.7 fL (7.4-10.4); Monocytes # 0.9 10^3/uL (0.2-0.9); Monocytes % 5.8 %; Neutrophils % 78.3 %; Nucleated Red Blood Cells % 0 %; Platelet Count 390 10^3/cmm (157-399); Red Blood Count 4.96 10^6/uL (3.85-5.65); Red Cell Distribution Width 12.9 % (12.1-15.1); White Blood Count 15.07 10^3/uL (3.29-11.43)
[2023-01-30] MEDS: thiamine 100 mg Tablet PO (09:14)
[2023-01-30] MEDS: folic acid 1 mg Tablet PO (09:14)
[2023-01-30] MEDS: dilTIAZem 5 mg/mL SDV 5 mL 20 MG IVP (09:14)
[2023-01-30] MEDS: multivitamin therapeutic Tablet 1 TAB PO (09:14)
[2023-01-30 09:34] LABS: Add Urine Microscopic? NO; Charge for UA Resulting for Rev
[2023-01-30 09:36] LABS: Troponin(5th) Baseline 25 ng/L (0-15)
[2023-01-30 09:39] LABS: Bilirubin Urine Neg (Negative); Blood Urine Neg (Negative); Glucose Urine UA Norm (Normal); Ketones Urine 1+ (Negative); Leukocyte Esterase Urine Negative (Negative); Nitrate Urine Negative (Negative); Protein Urine Neg (Negative); Specific Gravity, Urine 1.005 (1.005-1.030); Urine Appearance Clear (CLEAR); Urine Color Yellow (Yellow); Urobilinogen Urine Norm (Negative); pH Urine 7 (5-7)
[2023-01-30 09:44] LABS: Alanine Aminotransferase 50 U/L (0-41); Albumin Level 5.1 g/dL (3.5-5.2); Alcohol Level 138 mg/dL (0-10); Alkaline Phosphatase 164 U/L (40-130); Anion Gap 24.3 (5-19); Aspartate Amino Transferase 69 U/L (0-40); Blood Urea Nitrogen 19 mg/dL (6-20); Calcium 9.5 mg/dL (8.5-10.5); Carbon Dioxide 27 mmol/L (22-29); Chloride 93 mmol/L (98-107); Globulin 3.6 g/dL (1.3-4.6); Glomerular Filtration Rate 80.4 mL/min (90-130); Glucose 63 mg/dL (65-115); Osmolality Calculated 290 mOsm/kg (285-295); Potassium 4.3 mmol/L (3.5-5.1); Sodium 140 mmol/L (136-145); Thyroid Stimulating Hormone 1.98 uIU/mL (0.27-4.20); Total Bilirubin 1.1 mg/dL (0.15-1.2); Total Protein 8.7 g/dL (6.6-8.7)
[2023-01-30] MEDS: dilTIAZem 100 MG in sodium chloride 0.9% (add-van) 100 ML IV (09:51)
--- NOTE | 2023-01-30 10:14 | ECG_ITS ---
[facility] Test Date: 2023-01-30 Pat Name: Ludin Gordon Department: Room: Gender: Male Trackman: : 1975 Requested By: Cruzito Machado Order Number: [id number] Yeni MD: Ban Alvarez M.D. Measurements Intervals [place] Rate: 150 P: 83 NE: 87 QRS: 71 QRSD: 111 T: 84 QT: 311 QTc: 491 Interpretive Statements ATRIAL FLUTTER WITH RAPID VENTRICULAR RESPONSE MODERATE INTRAVENTRICULAR CONDUCTION DELAY [110+ ms QRS DURATION] Compared to ECG 01/30/2023 08:41:57 Intraventricular conduction delay now present ST (T wave) deviation now present Electronically Signed On 01-30-2023 12:12:30 CDT by Ban Alvarez M.D. [email or web address]/store/[id number]
[2023-01-30] MEDS: lactated ringers 1,000 ML 999 ML IV ×2 (10:44→10:45)
--- NOTE | 2023-01-30 11:13 | P.HP_ITS ---
Providers/Chief Complaint Admitting Physician: Levon Austin MD Primary Care Provider: Chayito Cali MD Chief Complaint: Weakness, SOB, states he is intoxicated History of Present Illness Ludin Gordon is a 47 year old male with history of alcoholism and bipolar disorder who presents to the hospital feeling short of breath and weak. Symptom duration perhaps the last couple of days. To the emergency department he reported he had been drinking last the last several days. He tells me he has had about a pint in the last 24 hours. He denies any chest discomfort to me, but there are notations of chest tightness in the ER record. No cough or fever according to the patient. He had a similar presentation in November, presenting with flutter ultimately requiring amiodarone. This was thought to be induced by alcohol or methamphetamine use. It appears he converted with amiodarone, and went AGAINST MEDICAL ADVICE at that time. He denies any amphetamine use since that time. He reports he has been a little nauseated, but no vomiting. He is hungry. Reports he would like a nicotine patch. In the emergency department he was placed on diltiazem, which has not been effective and he is being transitioned to amiodarone. Review of Systems General: Reports: 10 or more systems reviewed and unremarkable except in HPI and below Card: Reports: palpitations and dyspnea on exertion; Denies: chest pain or swelling of feet/ankles Resp: Reports: dyspnea; Denies: productive cough or non-productive cough GI: Reports: nausea; Denies: abdominal pain, vomiting, melena or mucus in stool Medications/Allergies Home Medications Medication Instructions Recorded Confirmed Last Taken Type hydroxyzine pamoate 50 mg capsule 50 mg PO QID PRN Agitation 30 days 01/02/23 Unknown Rx (Vistaril) #120 caps lurasidone 40 mg tablet (Latuda) 40 mg PO QPM 30 days #30 tabs 01/02/23 Unknown Rx pantoprazole 40 mg tablet,delayed 40 mg PO DAILY 30 days #30 tabs 01/02/23 Unknown Rx release paroxetine HCl 20 mg tablet 40 mg PO BEDTIME 30 days #60 tabs 01/02/23 Unknown Rx quetiapine 200 mg tablet 200 mg PO BEDTIME #30 tabs 01/02/23 Unknown Rx tamsulosin 0.4 mg capsule (Flomax) 0.4 mg PO BEDTIME 30 days #30 caps 01/02/23 Unknown Rx Allergies Allergy/AdvReac Type Severity Reaction Status Date / Time No Known Allergies Allergy Verified 01/28/23 17:22 PFSH Acute PFSH: Medical History (Updated 01/30/23 @ 11:23 by Levon Austin MD) Adjustment disorder with mixed disturbance of emotions and conduct Alcohol use disorder -Has known history of alcohol abuse&DT Atrial fibrillation Bipolar 1 disorder, manic, mild Depressive disorder, not elsewhere classified Methamphetamine abuse -UDS positive for amphetamines/THC Surgical History H/O hernia repair History of appendectomy Family History Other Alcoholism /alcohol abuse Social History Quit status (tobacco): has tried quititng Number of times tried to quit tobacco: 4 Second hand smoke exposure: Yes Alcohol intake: current Substance/Drug Use: current Current gender identity: Male Vitals/I&O/Wt Last Vital Signs Temp 97.0 F L 01/30/23 08:14 Pulse 152 H 01/30/23 11:00 Resp 23 H 01/30/23 11:00 BP 124/79 01/30/23 11:00 Pulse Ox 97 01/30/23 11:06 O2 Del Method Room Air 01/30/23 11:06 01/29/23 01/30/23 01/30/23 22:59 06:59 14:59 Intake Total 7.25 / 7.25 Balance 7.25 / 7.25 Weight last 48 hrs Weight 63.503 kg Physical Exam Narrative: General exam is a white male, who appears weak with a soft voice. Slight tremulousness but not severe. Alert and oriented x3. He is decisional, and is currently capable of understanding plan. HEENT: Atraumatic and normocephalic. Oropharynx clear. Neck is supple no lymphadenopathy thyromegaly Cardiovascular regular, tachycardic, no audible murmur Lungs clear Abdomen is soft. No obvious organomegaly. Nontender. exam is deferred Extremities no cyanosis clubbing or edema, cap refill brisk Skin no rash Neuro no obvious focal deficits Data 01/30/23 09:01 01/30/23 09:01 Other Labs: LFTs elevated with AST of 69, ALT of 50, alk phos of 164 Magnesium level is ordered. Calcium, albumin normal Troponin 25 with repeats pending TSH normal Urinalysis no concerns. Urine drug screen pending. Alcohol level 138 Chest x-ray by my review no infiltrate, old rib fractures noted EKG demonstrates atrial flutter, normal axis, nonspecific ST-T wave changes A&P Assessment and plan (1) Atrial flutter: Patient presents with atrial flutter with rapid ventricular rate He has failed diltiazem in the emergency department Amiodarone is being initiated Consider low-dose beta-arturo as well. Will determine after seen effect of amiodarone No full anticoagulation. [id number] score low. He is at significant risk of bleeding with severe alcohol use, drug use Echocardiogram when heart rate decreases if patient allows TSH was checked and normal Potassium normal Awaiting magnesium which was ordered Hydrate CBC, CMP in the morning (2) Alcohol abuse: Patient with history of significant alcohol use I suspect he will withdrawal significantly, and appears to be starting this currently. [facility] protocol Consider Precedex if Ativan is not sufficient Discussed with him abstaining from alcohol (3) Bipolar depression: Reconcile medication list Continue home medications for bipolar disorder (4) Methamphetamine abuse: Patient with past history of methamphetamine use Check urine drug screen He currently denies use (5) Transaminitis: Check hepatitis panel, HIV Likely secondary to alcohol Repeat transaminase level in the morning Plan Tobacco dependency. Discussed abstaining. Nicotine patch. Other medical problems as outlined in past medical history Lovenox for DVT prophylaxis Protonix for GI prophylaxis Full code Attestations Medical Necessity Statement*: Will require greater than 2 midnight stay for atrial flutter with rapid ventricular rate, alcohol withdrawal. Diagnoses Atrial flutter I48.92 Alcohol abuse F10.10 Bipolar depression F31.9 Methamphetamine abuse F15.10 Transaminitis R74.01 Time Spent (min) 51
[2023-01-30 11:20] LABS: Glucose Point of Care 73 mg/dL (70-110)
[2023-01-30 11:30] LABS: Amphetamines Screen Urine Negative (Negative); Barbiturates Screen Urine Negative (Negative); Benzodiazepines Screen Urine Negative (Negative); Cocaine Screen Urine Negative (Negative); Opiate Screen Urine Negative (Negative); PCP Screen Urine Negative (Negative); THC Screen Urine Negative (Negative)
[2023-01-30 11:41] LABS: Magnesium 2.2 mg/dL (1.7-2.3)
[2023-01-30 11:44] LABS: Troponin 5 2HR 22.48 ng/L (0-15)
[2023-01-30 11:45] LABS: Troponin 5 2HR Delta -2.52 ABS# (0-10)
[2023-01-30 12:05] LABS: Hepatitis A Antibody IgM Non-Reactive (Nonreactive); Hepatitis B Core IgM Non-Reactive (Nonreactive); Hepatitis B Surface Antigen Non-Reactive (Nonreactive); Hepatitis C Virus Antibody Non-Reactive (Nonreactive)
[2023-01-30 12:08] LABS: HIV 1 & 2 Antibody Non-Reactive (Non-Reactiv); HIV 1 & 2 Antigen Non-Reactive (Non-Reactiv)
--- NOTE | 2023-01-30 12:25 | USCV_ITS ---
SriLudin zheng Age: 47 Gender: M : 1975 Exam Date: 01/30/2023 14:38 Ordering Phys: Levon Austin MD Technologist: SANGEETA [place] [facility] [place]ication: A FLUTTER BP: 99 / 69 HR: 86 Rhythm: Other Technical Quality: Adequate MEASUREMENTS (Male / Female) Normal Values 2D ECHO LVOT Diameter 2.0 cm LV Ejection Fraction MOD 2C 66.8 % LV Ejection Fraction 2C AL 69.7 % LA Diameter 2.5 cm LA Width 2.7 cm LA Height 4.8 cm RA Width 3.9 cm RA Height 4.4 cm Aorta at Sinotubular Diameter 2.8 cm IVC Diameter 1.6 cm M-MODE Aortic Annulus Diameter 2.7 cm LA Ao Ratio MM 0.9 MV E Point Septal Separation 0.3 cm DOPPLER AV Peak Velocity 127.0 cm/s LVOT Peak Velocity 126.0 cm/s AV Area Cont Eq vti 3.3 cm squared AV Area Cont Eq pk 3.1 cm squared MV Peak Velocity 71.0 cm/s MV Area PHT 3.1 cm squared Mitral E to A Ratio 1.5 MV E' Velocity 44.0 cm/s Mitral E to MV E' Ratio 8.3 Mitral E to LV E' Lateral Ratio 7.2 Mitral E to LV E' Septal Ratio 9.9 TR Peak Velocity 95.8 cm/s TR Peak Gradient 3.7 mmHg TR Mean Velocity 115.1 cm/s TR Mean Gradient 5.8 mmHg TR Velocity Time Integral 37.4 cm Right Atrial Pressure 3.0 mmHg Pulmonary Artery Systolic Pressu 6.7 mmHg PV Peak Velocity 90.0 cm/s RV Acceleration Time 0.1 s RV Ejection Time 0.3 s RV AcT/ET 0.3 FINDINGS Left Ventricle Left ventricle is normal in size. LV systolic function is normal with EF of 60-65%. No regional wall motion abnormalities. Right Ventricle Normal in size and function Right Atrium Normal in size Left Atrium Normal in size Mitral Valve Structurally normal duy valve. Trace mitral regurgitation. Aortic Valve Structurally normal aortic valve. No significant stenosis or regurgitation. Tricuspid Valve Mild tricuspid regurgitation. Insufficient TR jet to calculate RVSP Pulmonic Valve Not well visualized Pericardium Normal Aorta Normal in size IVC Appears to be normal CONCLUSIONS LV systolic function is normal with EF of 60-65% Trace mitral regurgitation. Mild tricuspid regurgitation No comparison studies are available. Leon Mancuso MD (Electronically Signed) Final Date: 30 January 2023 17:05 S
[2023-01-30] MEDS: enoxaparin 40 mg/0.4 mL Syringe SUBCUT (12:58)
[2023-01-30] MEDS: nicotine 21 mg Patch 1 PATCH TRANSDERMA (12:59)
[2023-01-30] MEDS: sodium chloride 0.9% 1,000 ML 150 ML IV ×2 (13:00→20:23)
[2023-01-30 13:16] LABS: Glucose Point of Care 84 mg/dL (70-110)
--- NOTE | 2023-01-30 13:27 | PC.NURSE ---
Received patient form ER staff at 1220. BP: 136/82, HR: 84, RR: 20, SPO2: 96% on room air. Patient is alert to person, place, time and situation. Upon arrival, patient was exhibiting withdrawal symptoms. CIWA scored 12. 2 mg ativan given per CIWA protocol. Symptoms resolved about 15 minutes after ativan administration.
--- NOTE | 2023-01-30 14:36 | ECG_ITS ---
[facility] Test Date: 2023-01-30 Pat Name: Ludin Gordon Department: Room: [facility] Gender: Male Network Development Coordinator: : 1975 Requested By: Cruzito Machado Order Number: [id number] Yeni MD: Ban Alvarez M.D. Measurements Intervals [place] Rate: 83 P: 61 GA: 128 QRS: 60 QRSD: 80 T: 71 QT: 378 QTc: 445 Interpretive Statements SINUS RHYTHM Compared to ECG 01/30/2023 10:14:23 Atrial flutter no longer present Intraventricular conduction delay no longer present Electronically Signed On 01-30-2023 17:14:25 CDT by Ban Alvarez M.D. [email or web address] [email or web address] [facility] and infantsMillennium MusicMediauniversity [facility].[employer]store/OM/[id number]
[2023-01-30 16:08] LABS: Troponin 5 6HR 19.37 ng/L (0-15)
[2023-01-30 16:09] LABS: Troponin 5 6HR Delta -5.63 ng/L (0-12)
[2023-01-30 17:11] LABS: Glucose Point of Care 85 mg/dL (70-110)
--- NOTE | 2023-01-30 17:47 | PC.NURSE ---
Shift SUmmary: Uneventful shift Patient rested in bed throughout the day. Off of amiodarone. Ativan given 1 time this morning per [facility] protocol.
[2023-01-30] MEDS: lurasidone 20 mg Tablet 40 MG PO (17:50)
[2023-01-30] MEDS: tamsulosin 0.4 mg Capsule PO (20:21)
[2023-01-30] MEDS: quetiapine 100 mg Tablet 200 MG PO (20:21)
[2023-01-30] MEDS: PARoxetine 20 mg Tablet 40 MG PO (20:21)
[2023-01-30] MEDS: metoprolol tartrate 25 mg Tablet PO (20:23)
[2023-01-31] VITALS (30 sets, daily range): BP systolic 81–137; BP diastolic 53–113; PULSE 70–92; RESP 19–32; TEMP 36.3–37; O2SAT 88–99
[2023-01-31] MEDS: sodium chloride 0.9% 1,000 ML 150 ML IV (03:08)
[2023-01-31 06:57] LABS: Basophils % 0.4 %; Eosinophils # 0.1 10^3/uL (0.0-0.8); Eosinophils % 1.7 %; Hematocrit 40.4 % (37-53); Lymphocytes # 1.4 10^3/uL (0.8-4.8); Lymphocytes % 19.7 %; Mean Corpuscular HGB Conc 33.4 g/dL (30-55); Mean Corpuscular Hemoglobin 36.8 pg (27-33); Mean Corpuscular Volume 110.1 fl (82-101); Mean Platelet Volume 8.9 fL (7.4-10.4); Monocytes # 0.5 10^3/uL (0.2-0.9); Monocytes % 7.1 %; Neutrophils # 4.89 10^3/uL (1.8-7.7); Neutrophils % 70.8 %; Nucleated Red Blood Cells % 0 %; Platelet Count 203 10^3/cmm (157-399); Red Blood Count 3.67 10^6/uL (3.85-5.65); Red Cell Distribution Width 12.9 % (12.1-15.1); White Blood Count 6.91 10^3/uL (3.29-11.43)
[2023-01-31 07:13] LABS: Alanine Aminotransferase 24 U/L (0-41); Alkaline Phosphatase 98 U/L (40-130); Anion Gap 10.8 (5-19); Aspartate Amino Transferase 26 U/L (0-40); Blood Urea Nitrogen 15 mg/dL (6-20); Calcium 7.8 mg/dL (8.5-10.5); Carbon Dioxide 26 mmol/L (22-29); Chloride 105 mmol/L (98-107); Globulin 2.5 g/dL (1.3-4.6); Glomerular Filtration Rate 104.1 mL/min (90-130); Glucose 80 mg/dL (65-115); Osmolality Calculated 286 mOsm/kg (285-295); Potassium 3.8 mmol/L (3.5-5.1); Sodium 138 mmol/L (136-145); Total Bilirubin 1.1 mg/dL (0.15-1.2); Total Protein 5.5 g/dL (6.6-8.7)
[2023-01-31] MEDS: aspirin 81 mg EC Tablet 162 MG PO (08:42)
[2023-01-31] MEDS: multivitamin therapeutic Tablet 1 TAB PO (08:42)
[2023-01-31] MEDS: thiamine 100 mg Tablet PO (08:42)
[2023-01-31] MEDS: pantoprazole DR 40 mg Tablet PO (08:42)
[2023-01-31] MEDS: folic acid 1 mg Tablet PO (08:42)
[2023-01-31] MEDS: metoprolol tartrate 25 mg Tablet PO (08:42)
[2023-01-31] MEDS: nicotine 21 mg Patch 1 PATCH TRANSDERMA (08:43)
--- NOTE | 2023-01-31 13:05 | PM.DCS ---
Discharge Providers Date of Admission: 01/30/23 11:20 Date of Discharge: January 31, 2023 Attending Provider at Admission: Levon Austin MD Attending Provider at Discharge: Levon Austin MD Primary Care Provider: Chayito Cali MD Diagnoses at Discharge Discharge Diagnosis (1) Atrial flutter: Status: Acute (2) Alcohol abuse: Status: Acute (3) Bipolar depression: Status: Acute (4) Methamphetamine abuse: Status: Acute Permanent problem details: -UDS positive for amphetamines/THC (5) Transaminitis: Status: Acute Reason for Visit Reason for Visit: Weakness, SOB, states he is intoxicated Hospital Course Hospital Course Ludin is a 47-year-old white male who presented to the hospital short of breath and weak. He was found to be in atrial flutter. There was some concern of alcohol withdrawal. He has a history of alcoholism and methamphetamine use. Urine drug screen was negative. Electrolytes were within normal limits. White blood cell count was high, likely secondary to demargination from stress. He was tried on diltiazem and failed. Amiodarone was initiated. He was moved to the ICU for concern of severe withdrawal. He required an occasional dose of Ativan. After moving over to the ICU, he converted to normal sinus rhythm. The following day, January 31 he had no evidence of withdrawal. Heart rate had remained stable during the night. Electrolytes, TSH, magnesium were all normal. White blood cell count had returned to normal. He had no specific complaints. I discussed with him that he is not a good candidate for anticoagulation secondary to his severe alcohol and amphetamine use. He agreed and this will not be prescribed. I encouraged him to take 162 mg of aspirin daily. Low-dose beta-arturo was initiated at 12.5 mg of metoprolol twice a day. He will follow-up with his primary care provider in 3 to 5 days. He was encouraged to not drink alcohol, not use amphetamines in the future. He was offered rehabilitation services which she refused. He was given an opportunity to ask questions him and agreed with the plan. Echocardiogram was done while he was in the hospital and this was largely normal. Physical Exam Narrative: General exam no distress, alert and oriented x3 Neck is supple Cardiovascular regular rate and rhythm without murmur Lungs clear Abdomen is soft, positive bowel sounds Extremities no sinus clubbing edema. No tremor Discharge Data Studies Completed and Pending Completed Studies During Hospitalization Category Date Time Status XR chest 1V portable [id number] Stat Exams 01/30/23 08:23 Completed CV. echo complete* [id number] Routine Ultrasound 01/30/23 12:25 Completed Laboratory Results WBC 6.91 10^3/uL (3.29-11.43) 01/31/23 06:41 Corrected WBC Cancelled 01/31/23 05:12 RBC 3.67 10^6/uL (3.85-5.65) L 01/31/23 06:41 Hgb 13.50 g/dL (11.27-16.99) 01/31/23 06:41 Hct 40.4 % (37-53) 01/31/23 06:41 MCV 110.1 fl (82-101) H 01/31/23 06:41 MCH 36.8 pg (27-33) H 01/31/23 06:41 MCHC 33.4 g/dL (30-55) 01/31/23 06:41 RDW 12.9 % (12.1-15.1) 01/31/23 06:41 Plt Count 203 10^3/cmm (157-399) D 01/31/23 06:41 MPV 8.9 fL (7.4-10.4) 01/31/23 06:41 Gran % Cancelled 01/31/23 05:12 Neut % (Auto) 70.8 % 01/31/23 06:41 Lymph % (Auto) 19.7 % 01/31/23 06:41 [place] % (Auto) 7.1 % 01/31/23 06:41 Eos % (Auto) 1.7 % 01/31/23 06:41 Baso % (Auto) 0.4 % 01/31/23 06:41 Neut # (Auto) 4.89 10^3/uL (1.8-7.7) 01/31/23 06:41 Lymph # (Auto) 1.4 10^3/uL (0.8-4.8) 01/31/23 06:41 [place] # (Auto) 0.5 10^3/uL (0.2-0.9) 01/31/23 06:41 Eos # (Auto) 0.1 10^3/uL (0.0-0.8) 01/31/23 06:41 Baso # (Auto) 0.0 10^3/uL (0.0-0.1) 01/31/23 06:41 Absolute Gran (auto) Cancelled 01/31/23 05:12 Nucleated RBC % (auto) 0 % 01/31/23 06:41 Nucleated RBCs # 0.0 /100WBC 01/31/23 06:41 Sodium 138 mmol/L (136-145) 01/31/23 06:41 Potassium 3.8 mmol/L (3.5-5.1) 01/31/23 06:41 Chloride 105 mmol/L (98-107) 01/31/23 06:41 Carbon Dioxide 26 mmol/L (22-29) 01/31/23 06:41 Anion Gap 10.8 (5-19) 01/31/23 06:41 BUN 15 mg/dL (6-20) 01/31/23 06:41 Creatinine 0.8 mg/dL (0.7-1.2) 01/31/23 06:41 GFR Calculation 104.1 mL/min (90-130) 01/31/23 06:41 Glucose 80 mg/dL (65-115) 01/31/23 06:41 POC Glucose 85 mg/dL (70-110) 01/30/23 16:57 Calculated Osmolality 286 mOsm/kg (285-295) 01/31/23 06:41 Calcium 7.8 mg/dL (8.5-10.5) L 01/31/23 06:41 Magnesium 2.0 mg/dL (1.7-2.3) 01/31/23 06:41 Total Bilirubin 1.1 mg/dL (0.15-1.2) 01/31/23 06:41 AST 26 U/L (0-40) 01/31/23 06:41 ALT 24 U/L (0-41) 01/31/23 06:41 Alkaline Phosphatase 98 U/L (40-130) 01/31/23 06:41 Troponin T Baseline 25 ng/L (0-15) H 01/30/23 09:01 Troponin T 120 Minute 22.48 ng/L (0-15) H 01/30/23 11:15 Delta Troponin T -2.52 ABS# (0-10) L 01/30/23 11:15 Troponin T Hi Sens 6Hr 19.37 ng/L (0-15) H 01/30/23 15:38 Troponin T Hi Sens 6Hr Delta -5.63 ng/L (0-12) L 01/30/23 15:38 Total Protein 5.5 g/dL (6.6-8.7) L D 01/31/23 06:41 Albumin 3.0 g/dL (3.5-5.2) L 01/31/23 06:41 Globulin 2.5 g/dL (1.3-4.6) 01/31/23 06:41 TSH 1.98 uIU/mL (0.27-4.20) 01/30/23 09:01 Urine Color Yellow (Yellow) 01/30/23 09:01 Urine Appearance Clear (CLEAR) 01/30/23 09:01 Urine pH 7 (5-7) 01/30/23 09:01 Ur Specific [place] 1.005 (1.005-1.030) 01/30/23 09:01 Urine Protein Neg (Negative) 01/30/23 09:01 Urine Glucose (UA) Norm (Normal) 01/30/23 09:01 Urine Ketones 1+ (Negative) H 01/30/23 09:01 Urine Blood Neg (Negative) 01/30/23 09:01 Urine Nitrate Negative (Negative) 01/30/23 09:01 Urine Bilirubin Neg (Negative) 01/30/23 09:01 Urine Urobilinogen Norm mg/dL (Negative) 01/30/23 09:01 Ur Leukocyte Esterase Negative (Negative) 01/30/23 09:01 Urine Opiates Screen Negative ng/mL (Negative) 01/30/23 09:01 Ur Barbiturates Screen Negative ng/mL (Negative) 01/30/23 09:01 Ur Phencyclidine Scrn Negative ng/mL (Negative) 01/30/23 09:01 Ur Amphetamines Screen Negative ng/mL (Negative) 01/30/23 09:01 U Benzodiazepines Scrn Negative ng/mL (Negative) 01/30/23 09:01 Urine Cocaine Screen Negative ng/mL (Negative) 01/30/23 09:01 U Marijuana (THC) Screen Negative ng/mL (Negative) 01/30/23 09:01 Ethyl Alcohol 138 mg/dL (0-10) H 01/30/23 09:01 Hepatitis A IgM Ab Non-reactive (Nonreactive) 01/30/23 09:01 Hep Bs Antigen Non-reactive (Nonreactive) 01/30/23 09:01 Hep B Core IgM Ab Non-reactive (Nonreactive) 01/30/23 09:01 Hepatitis C Antibody Non-reactive (Nonreactive) 01/30/23 09:01 HIV 1&2 Ab & HIV 1 Ag Non-reactive (Non-Reactiv) 01/30/23 09:01 HIV 1&2 Antibody Non-reactive (Non-Reactiv) 01/30/23 09:01 Vitals Last Vital Signs Temp 97.3 F L 01/31/23 09:16 Pulse 77 01/31/23 12:30 Resp 20 H 01/31/23 12:30 BP 137/113 01/31/23 12:30 Pulse Ox 98 01/31/23 12:30 O2 Del Method Room Air 01/31/23 12:30 Discharge Plan Discharge Patient Disposition: Home Condition: Stable Prescriptions: New aspirin 81 mg Tablet,Delayed Release (Dr/Ec) 162 mg PO DAILY Qty: 60 0RF metoprolol tartrate 25 mg tablet 12.5 mg PO BID Qty: 30 0RF Continued paroxetine HCl 20 mg Tablet 40 mg PO BEDTIME 30 Days Qty: 60 1RF quetiapine 200 mg tablet 200 mg PO BEDTIME Qty: 30 1RF hydroxyzine pamoate [Vistaril] 50 mg Capsule 50 mg PO QID PRN (Reason: Agitation) 30 Days Qty: 120 1RF tamsulosin [Flomax] 0.4 mg Capsule 0.4 mg PO BEDTIME 30 Days Qty: 30 1RF pantoprazole 40 mg tablet,delayed release (DR/EC) 40 mg PO DAILY 30 Days Qty: 30 1RF lurasidone [Latuda] 40 mg Tablet 40 mg PO QPM 30 Days Qty: 30 1RF Rx Instructions: must administer with food (at least 350 calories) Discharge Orders: Discharge Order (Routine); Ordered 01/31/23 Ordered By: Levon Austin [place] [facility] [place] [facility] [place]Other] Crisis Stabilization [Other] Chayito Cali MD [Primary Care Provider] - 4-7 days Discharge Diet: Regular Discharge Activity: Increase activity as tolerated Patient Instructions: Opioid Safety Activity Restrictions/Additional Instructions: Do not take any alcohol or methamphetamine Follow-up with your primary care provider 4 to 5 days Return for any concerns Take all medicine as prescribed. Discharge Attestations Time Spent in Discharge Care*: greater than 30 min Status at Discharge: Cognitive status at discharge: cognitively intact, Behavioral status at discharge: cooperative, Quality Metrics Clinical Quality Measures [ No reported AMI, CVA or VTE this stay] Coding Level of Care Code 20167 Total time (in minutes) for Discharge: 39 Diagnoses Atrial flutter I48.92 Alcohol abuse F10.10 Bipolar depression F31.9 Methamphetamine abuse F15.10 Transaminitis R74.01
--- NOTE | 2023-01-31 14:13 | PC.NURSE ---
Discharge instructions given to patient, prescriptions brought to bedside, IV's removed, ride set up by social director. Patient has no questions.
--- NOTE | 2023-01-31 14:25 | PC.NURSE ---
Patient ambulated to front entrance accompanied by this nurse. All belongings with patient. Patient wishes to wait outside for his ride, [employer], that was set up by adoption social worker. Patient has no complaints, AAOx4.
== END 2023-01-31 14:20 | disposition home or self-care (01) | DRG 309 ==
LOC: ER 08:38 → ICU 11:21
PROVIDERS: Admitting Provider Internal Medicine; Emergency Provider Family Medicine; PCP Family Medicine; Visit Provider Internal Medicine
DX: I48.92 Unspecified atrial flutter (principal); F31.89 Other bipolar disorder; F10.129 Alcohol abuse with intoxication, unspecified; F15.11 Other stimulant abuse, in remission; F17.210 Nicotine dependence, cigarettes, uncomplicated; R74.01 Elevation of levels of liver transaminase levels; Y90.6 Blood alcohol level of 120-199 mg/100 ml
CPT/HCPCS: 36415; 36416; 71045; 80053; 80074; 80306; 80307; 81003; 82962; 83735; 84443; 84484; 85025; 87806; 93005; 93306; 96365; 96366; 96372; 96375; 99285; J0282; J1650; J2060; J3411; J3490; J7030; J7060; J7120

== ENCOUNTER 2023-02-01 15:49 | Emergency (ER) | payer MEDICAID, SELFPAY ==
--- NOTE | 2023-02-01 15:55 | XRR_ITS ---
PROCEDURE INFORMATION: Exam: XR Chest Exam date and time: 02/01/2023 4:17 PM Age: 47 years old Clinical indication: Other: Suicidal ideation TECHNIQUE: Imaging protocol: Radiologic exam of the chest. Views: 1 view. COMPARISON: CR XR chest 1V portable [id number] 01/30/2023 8:31 AM FINDINGS: Lungs: Lungs are clear. Pleural spaces: There is no pleural effusion or pneumothorax. Heart/Mediastinum: Cardiomediastinal contours are unremarkable. Bones/joints: There is a healing fracture of the right posterolateral 9th rib. There are healed fractures of the left lateral 8th and 9th ribs. There is a healed partially imaged fracture of the left proximal humerus. No acute fracture. XR/XR chest 1V portable [id number] IMPRESSION: No acute findings.
[2023-02-01 16:03] VITALS: BP 139/84; PULSE 106; RESP 20; TEMP 36.9; O2SAT 96
[2023-02-01 16:22] LABS: Basophils % 0.4 %; Eosinophils % 0.2 %; Hematocrit 44.5 % (37-53); Lymphocytes % 23.5 %; Mean Corpuscular Hemoglobin 36.9 pg (27-33); Mean Corpuscular Volume 111.8 fl (82-101); Mean Platelet Volume 9.2 fL (7.4-10.4); Monocytes # 0.7 10^3/uL (0.2-0.9); Monocytes % 7.7 %; Nucleated Red Blood Cells % 0 %; Platelet Count 259 10^3/cmm (157-399); Red Blood Count 3.98 10^6/uL (3.85-5.65); Red Cell Distribution Width 12.9 % (12.1-15.1); White Blood Count 8.39 10^3/uL (3.29-11.43)
--- NOTE | 2023-02-01 16:25 | W.ED.PSYCHS ---
Documented by User: Trino Baptiste DO 02/01/23 22:04 HPI - Psych General: Chief Complaint: Psychiatric Symptoms Stated Complaint: SI Time Seen by Provider: 02/01/23 15:54 History of Present Illness: Patient presents to the ER with suicidal ideation. She needs to be inpatient to help with his mental capacity and that he needs to be placed in a detox to help him stop drinking. Patient says he is going to keep drinking until he dies. Patient admits to drinking a pint of vodka today. Patient has been inpatient before. Review of Systems General: Reports: 10 or more systems reviewed and unremarkable except in HPI and below PFSH ED PFSH: Medical History Adjustment disorder with mixed disturbance of emotions and conduct Alcohol use disorder -Has known history of alcohol abuse&DT Atrial fibrillation Atrial flutter Bipolar 1 disorder, manic, mild Depressive disorder, not elsewhere classified Methamphetamine abuse -UDS positive for amphetamines/THC Surgical History H/O hernia repair History of appendectomy Family History Other Alcoholism /alcohol abuse Social History Quit status (tobacco): has tried quititng Number of times tried to quit tobacco: 4 Second hand smoke exposure: Yes Alcohol intake: current Substance/Drug Use: current Current gender identity: Male Physical Exam Const: COMMON NORMALS: no acute distress, average body habitus, patient oriented x3, no limitations, healthy appearing, alert and well nourished HENMT: COMMON NORMALS: normocephalic, atraumatic, hearing grossly normal bilaterally, external ears normal, Normal external nose present and moist oral mucous membranes HEAD & SCALP: normocephalic and atraumatic NOSE: Normal external nose present EXTERNAL EAR: Yes external ears normal Neck/C-Spine: COMMON NORMALS: no JVD Chest: COMMONS NORMALS: normal inspection of the chest and normal palpation of entire chest wall Resp: COMMON NORMALS: normal respiratory effort, No retractions, No use of accessory muscles and clear to auscultation bilaterally AUSCULTATION: clear to auscultation bilaterally Cardio: COMMON NORMALS: no JVD, regular rate, regular rhythm, S1 normal heart sound present, S2 normal heart sound present, No gallops present (Cardio), No clicks present (Cardio), No murmurs present (Cardio) and No rub (Cardio) RATE: regular rate RHYTHM: regular rhythm HEART SOUNDS: S1 normal heart sound present and S2 normal heart sound present GI: COMMON NORMALS: Normal to inspection, nondistended, normoactive bowel sounds present, Soft to palpation, non-tender, No hepatosplenomegaly present and no masses PALPATION: Yes Soft to palpation and Yes No hepatosplenomegaly present Neuro: COMMON NORMALS: patient oriented x3 SENSORIUM/ORIENTATION: Yes alert Course Vital Signs: Vital signs: Vital Signs Temperature 98.4 F 02/01/23 16:03 Pulse Rate 87 02/02/23 01:01 Respiratory Rate 20 H 02/02/23 01:01 Blood Pressure 147/98 02/02/23 01:01 Pulse Oximetry 98 02/02/23 01:01 Oxygen Delivery Me thod Room Air 02/01/23 22:15 MDM - Psych Medical Decision Making Patient presents to the ER with suicidal ideation and alcohol intoxication. Patient says he needs to be placed inpatient psychiatric unit to clear his mind being in his mind better and then placed in detox unit. Normal psychiatric lab work was obtained and physical exam was performed. Anticipate transfer to the appropriate facility. Differential Diagnosis Likely suicidal ideation; Unlikely acute psychosis, chronic schizophrenia, bipolar disorder, depression, drug-induced psychotic disorder or acute anxiety Medical Records I reviewed the patient's medical records. Lab Data I reviewed the patient's lab results. 02/01/23 16:13 02/01/23 16:13 Laboratory Results WBC 8.39 10^3/uL (3.29-11.43) 02/01/23 16:13 RBC 3.98 10^6/uL (3.85-5.65) 02/01/23 16:13 Hgb 14.70 g/dL (11.27-16.99) 02/01/23 16:13 Hct 44.5 % (37-53) 02/01/23 16:13 MCV 111.8 fl (82-101) H 02/01/23 16:13 MCH 36.9 pg (27-33) H 02/01/23 16:13 MCHC 33.0 g/dL (30-55) 02/01/23 16:13 RDW 12.9 % (12.1-15.1) 02/01/23 16:13 Plt Count 259 10^3/cmm (157-399) 02/01/23 16:13 MPV 9.2 fL (7.4-10.4) 02/01/23 16:13 Neut % (Auto) 68.0 % 02/01/23 16:13 Lymph % (Auto) 23.5 % 02/01/23 16:13 Ramsey % (Auto) 7.7 % 02/01/23 16:13 Eos % (Auto) 0.2 % 02/01/23 16:13 Baso % (Auto) 0.4 % 02/01/23 16:13 Neut # (Auto) 5.70 10^3/uL (1.8-7.7) 02/01/23 16:13 Lymph # (Auto) 2.0 10^3/uL (0.8-4.8) 02/01/23 16:13 Ramsey # (Auto) 0.7 10^3/uL (0.2-0.9) 02/01/23 16:13 Eos # (Auto) 0.0 10^3/uL (0.0-0.8) 02/01/23 16:13 Baso # (Auto) 0.0 10^3/uL (0.0-0.1) 02/01/23 16:13 Nucleated RBC % (auto) 0 % 02/01/23 16:13 Nucleated RBCs # 0.0 /100WBC 02/01/23 16:13 Sodium 145 mmol/L (136-145) 02/01/23 16:13 Potassium 4.0 mmol/L (3.5-5.1) 02/01/23 16:13 Chloride 107 mmol/L (98-107) 02/01/23 16:13 Carbon Dioxide 23 mmol/L (22-29) 02/01/23 16:13 Anion Gap 19.0 (5-19) 02/01/23 16:13 BUN 13 mg/dL (6-20) 02/01/23 16:13 Creatinine 0.7 mg/dL (0.7-1.2) 02/01/23 16:13 GFR Calculation 121.4 mL/min (90-130) 02/01/23 16:13 Glucose 89 mg/dL (65-115) 02/01/23 16:13 Calculated Osmolality 300 mOsm/kg (285-295) H 02/01/23 16:13 Calcium 8.8 mg/dL (8.5-10.5) 02/01/23 16:13 Total Bilirubin 0.3 mg/dL (0.15-1.2) 02/01/23 16:13 AST 39 U/L (0-40) 02/01/23 16:13 ALT 37 U/L (0-41) 02/01/23 16:13 Alkaline Phosphatase 136 U/L (40-130) H 02/01/23 16:13 Total Protein 7.5 g/dL (6.6-8.7) 02/01/23 16:13 Albumin 4.2 g/dL (3.5-5.2) 02/01/23 16:13 Globulin 3.3 g/dL (1.3-4.6) 02/01/23 16:13 Urine Color Yellow (Yellow) 02/01/23 18:15 Urine Appearance Clear (CLEAR) 02/01/23 18:15 Urine pH 6.5 (5-7) 02/01/23 18:15 Ur Specific [place] 1.010 (1.005-1.030) 02/01/23 18:15 Urine Protein Neg (Negative) 02/01/23 18:15 Urine Glucose (UA) Norm (Normal) 02/01/23 18:15 Urine Ketones 1+ (Negative) H 02/01/23 18:15 Urine Blood Neg (Negative) 02/01/23 18:15 Urine Nitrate Negative (Negative) 02/01/23 18:15 Urine Bilirubin Neg (Negative) 02/01/23 18:15 Urine Urobilinogen Norm mg/dL (Negative) 02/01/23 18:15 Ur Leukocyte Esterase Negative (Negative) 02/01/23 18:15 Salicylates < 0.3 mg/dL (3-10) L 02/01/23 16:13 Urine Opiates Screen Negative ng/mL (Negative) 02/01/23 18:15 Acetaminophen < 5.0 ug/mL (10-30) L 02/01/23 16:13 Ur Barbiturates Screen Negative ng/mL (Negative) 02/01/23 18:15 Ur Phencyclidine Scrn Negative ng/mL (Negative) 02/01/23 18:15 Ur Amphetamines Screen Negative ng/mL (Negative) 02/01/23 18:15 U Benzodiazepines Scrn Positive ng/mL (Negative) H 02/01/23 18:15 Urine Cocaine Screen Negative ng/mL (Negative) 02/01/23 18:15 U Marijuana (THC) Screen Negative ng/mL (Negative) 02/01/23 18:15 Ethyl Alcohol 72 mg/dL (0-10) H 02/01/23 22:05 Coronavirus 229E (PCR) Not detected (NOT DETECT) 02/01/23 17:10 Human Metapneumovir PCR Not detected (NOT DETECT) 02/01/23 19:19 Entero/Rhino (PCR) Detected (NOT DETECT) A 02/01/23 19:19 SARS-CoV-2 (PCR) Not detected (NOT DETECT) 02/01/23 17:10 EKG Data EKG 1: I personally reviewed and interpreted this EKG as follows: EKG interpretation date: 02/01/23 EKG interpretation time: 16:31 Prior EKG tracings: not available for review Interpretation: EKG shows ventricular rate 98 bpm, MD interval 135, QRS duration 89, QTc of 399, sinus rhythm, no ST-T wave changes Discharge Plan Discharge Patient Disposition: Xfer Psychiatric Hosp Clinical Impression: Suicidal ideation Condition: Stable Referrals: Chayito Cali MD [Primary Care Provider] - Coding Level of Care Code ED Ingot Car Operator for Chg Fwd Documented by User: Fransisco Berry MD 02/02/23 01:14 HPI - Psych General: Chief Complaint: Psychiatric Symptoms Stated Complaint: SI Time Seen by Provider: 02/01/23 15:54 PFSH ED PFSH: Medical History Adjustment disorder with mixed disturbance of emotions and conduct Alcohol use disorder -Has known history of alcohol abuse&DT Atrial fibrillation Atrial flutter Bipolar 1 disorder, manic, mild Depressive disorder, not elsewhere classified Methamphetamine abuse -UDS positive for amphetamines/THC Surgical History H/O hernia repair History of appendectomy Family History Other Alcoholism /alcohol abuse Social History Quit status (tobacco): has tried quititng Number of times tried to quit tobacco: 4 Second hand smoke exposure: Yes Alcohol intake: current Substance/Drug Use: current Current gender identity: Male Course Vital Signs: Vital signs: Vital Signs Temperature 98.4 F 02/01/23 16:03 Pulse Rate 87 02/02/23 01:01 Respiratory Rate 20 H 02/02/23 01:01 Blood Pressure 147/98 02/02/23 01:01 Pulse Oximetry 98 02/02/23 01:01 Oxygen Delivery Me thod Room Air 02/01/23 22:15 MDM - Psych Medical Decision Making Patient presents to the ER with suicidal ideation and alcohol intoxication. Patient says he needs to be placed inpatient psychiatric unit to clear his mind being in his mind better and then placed in detox unit. Normal psychiatric lab work was obtained and physical exam was performed. Anticipate transfer to the appropriate facility. Patient excepted to [facility] due to bed availability will transfer there Lab Data 02/01/23 16:13 02/01/23 16:13 Laboratory Results WBC 8.39 10^3/uL (3.29-11.43) 02/01/23 16:13 RBC 3.98 10^6/uL (3.85-5.65) 02/01/23 16:13 Hgb 14.70 g/dL (11.27-16.99) 02/01/23 16:13 Hct 44.5 % (37-53) 02/01/23 16:13 MCV 111.8 fl (82-101) H 02/01/23 16:13 MCH 36.9 pg (27-33) H 02/01/23 16:13 MCHC 33.0 g/dL (30-55) 02/01/23 16:13 RDW 12.9 % (12.1-15.1) 02/01/23 16:13 Plt Count 259 10^3/cmm (157-399) 02/01/23 16:13 MPV 9.2 fL (7.4-10.4) 02/01/23 16:13 Neut % (Auto) 68.0 % 02/01/23 16:13 Lymph % (Auto) 23.5 % 02/01/23 16:13 Ramsey % (Auto) 7.7 % 02/01/23 16:13 Eos % (Auto) 0.2 % 02/01/23 16:13 Baso % (Auto) 0.4 % 02/01/23 16:13 Neut # (Auto) 5.70 10^3/uL (1.8-7.7) 02/01/23 16:13 Lymph # (Auto) 2.0 10^3/uL (0.8-4.8) 02/01/23 16:13 Ramsey # (Auto) 0.7 10^3/uL (0.2-0.9) 02/01/23 16:13 Eos # (Auto) 0.0 10^3/uL (0.0-0.8) 02/01/23 16:13 Baso # (Auto) 0.0 10^3/uL (0.0-0.1) 02/01/23 16:13 Nucleated RBC % (auto) 0 % 02/01/23 16:13 Nucleated RBCs # 0.0 /100WBC 02/01/23 16:13 Sodium 145 mmol/L (136-145) 02/01/23 16:13 Potassium 4.0 mmol/L (3.5-5.1) 02/01/23 16:13 Chloride 107 mmol/L (98-107) 02/01/23 16:13 Carbon Dioxide 23 mmol/L (22-29) 02/01/23 16:13 Anion Gap 19.0 (5-19) 02/01/23 16:13 BUN 13 mg/dL (6-20) 02/01/23 16:13 Creatinine 0.7 mg/dL (0.7-1.2) 02/01/23 16:13 GFR Calculation 121.4 mL/min (90-130) 02/01/23 16:13 Glucose 89 mg/dL (65-115) 02/01/23 16:13 Calculated Osmolality 300 mOsm/kg (285-295) H 02/01/23 16:13 Calcium 8.8 mg/dL (8.5-10.5) 02/01/23 16:13 Total Bilirubin 0.3 mg/dL (0.15-1.2) 02/01/23 16:13 AST 39 U/L (0-40) 02/01/23 16:13 ALT 37 U/L (0-41) 02/01/23 16:13 Alkaline Phosphatase 136 U/L (40-130) H 02/01/23 16:13 Total Protein 7.5 g/dL (6.6-8.7) 02/01/23 16:13 Albumin 4.2 g/dL (3.5-5.2) 02/01/23 16:13 Globulin 3.3 g/dL (1.3-4.6) 02/01/23 16:13 Urine Color Yellow (Yellow) 02/01/23 18:15 Urine Appearance Clear (CLEAR) 02/01/23 18:15 Urine pH 6.5 (5-7) 02/01/23 18:15 Ur Specific [place] 1.010 (1.005-1.030) 02/01/23 18:15 Urine Protein Neg (Negative) 02/01/23 18:15 Urine Glucose (UA) Norm (Normal) 02/01/23 18:15 Urine Ketones 1+ (Negative) H 02/01/23 18:15 Urine Blood Neg (Negative) 02/01/23 18:15 Urine Nitrate Negative (Negative) 02/01/23 18:15 Urine Bilirubin Neg (Negative) 02/01/23 18:15 Urine Urobilinogen Norm mg/dL (Negative) 02/01/23 18:15 Ur Leukocyte Esterase Negative (Negative) 02/01/23 18:15 Salicylates < 0.3 mg/dL (3-10) L 02/01/23 16:13 Urine Opiates Screen Negative ng/mL (Negative) 02/01/23 18:15 Acetaminophen < 5.0 ug/mL (10-30) L 02/01/23 16:13 Ur Barbiturates Screen Negative ng/mL (Negative) 02/01/23 18:15 Ur Phencyclidine Scrn Negative ng/mL (Negative) 02/01/23 18:15 Ur Amphetamines Screen Negative ng/mL (Negative) 02/01/23 18:15 U Benzodiazepines Scrn Positive ng/mL (Negative) H 02/01/23 18:15 Urine Cocaine Screen Negative ng/mL (Negative) 02/01/23 18:15 U Marijuana (THC) Screen Negative ng/mL (Negative) 02/01/23 18:15 Ethyl Alcohol 72 mg/dL (0-10) H 02/01/23 22:05 Coronavirus 229E (PCR) Not detected (NOT DETECT) 02/01/23 17:10 Human Metapneumovir PCR Not detected (NOT DETECT) 02/01/23 19:19 Entero/Rhino (PCR) Detected (NOT DETECT) A 02/01/23 19:19 SARS-CoV-2 (PCR) Not detected (NOT DETECT) 02/01/23 17:10 Discharge Plan Discharge Patient Disposition: Xfer Psychiatric Hosp Clinical Impression: Suicidal ideation Condition: Stable Referrals: Chayito Cali MD [Primary Care Provider] - Coding Level of Care Code ED Ingot Car Operator for Camila Alvares
--- NOTE | 2023-02-01 16:31 | ECG_ITS ---
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 Measurements Intervals [place] Rate: 98 P: 51 NM: 135 QRS: 64 QRSD: 89 T: 60 QT: 343 QTc: 439 Interpretive Statements SINUS RHYTHM Compared to ECG 01/30/2023 16:50:45 No significant changes Electronically Signed On 02-01-2023 20:30:47 CDT by Ban Alvarez M.D. [id number]
--- NOTE | 2023-02-01 16:37 | PC.PHAR ---
MEDICATIONS VERIFIED WITH [facility] AND [facility]. NEW RX ORDERS FOR LATUDA 40 MG AND PROTONIX 40 MG ON HOLD AT [facility]. LATUDA 40 MG LAST FILLED 12/12 30DS AT [facility] AND PICKED UP. PROTONIX 40 MG LAST FILLED 12/20 AT [facility] AND PICKED UP.
[2023-02-01 17:30] LABS: Alanine Aminotransferase 37 U/L (0-41); Albumin Level 4.2 g/dL (3.5-5.2); Alcohol Level 235 mg/dL (0-10); Alkaline Phosphatase 136 U/L (40-130); Blood Urea Nitrogen 13 mg/dL (6-20); Calcium 8.8 mg/dL (8.5-10.5); Carbon Dioxide 23 mmol/L (22-29); Chloride 107 mmol/L (98-107); Creatinine Clr Calc Pharmacy 128.1123; Globulin 3.3 g/dL (1.3-4.6); Glomerular Filtration Rate 121.4 mL/min (90-130); Glucose 89 mg/dL (65-115); Osmolality Calculated 300 mOsm/kg (285-295); Sodium 145 mmol/L (136-145); Total Bilirubin 0.3 mg/dL (0.15-1.2); Total Protein 7.5 g/dL (6.6-8.7)
[2023-02-01 17:37] LABS: Acetaminophen < 5.0 ug/mL (10-30); Salicylate < 0.3 mg/dL (3-10)
[2023-02-01 17:38] LABS: Aspartate Amino Transferase 39 U/L (0-40)
[2023-02-01] MEDS: LORazepam 1 mg Tablet PO (18:17)
[2023-02-01 18:35] LABS: Add Urine Microscopic? NO; Charge for UA Resulting for Rev
[2023-02-01 18:40] LABS: Bilirubin Urine Neg (Negative); Blood Urine Neg (Negative); Glucose Urine UA Norm (Normal); Ketones Urine 1+ (Negative); Leukocyte Esterase Urine Negative (Negative); Nitrate Urine Negative (Negative); Protein Urine Neg (Negative); Urine Appearance Clear (CLEAR); Urine Color Yellow (Yellow); Urobilinogen Urine Norm (Negative); pH Urine 6.5 (5-7)
[2023-02-01 18:50] LABS: Amphetamines Screen Urine Negative (Negative); Barbiturates Screen Urine Negative (Negative); Benzodiazepines Screen Urine Positive (Negative); Cocaine Screen Urine Negative (Negative); Opiate Screen Urine Negative (Negative); PCP Screen Urine Negative (Negative); THC Screen Urine Negative (Negative)
[2023-02-01 19:06] LABS: Adenovirus Not Detected (NOT DETECT); Chlamydia Pneumoniae Not Detected (NOT DETECT); Coronavirus 229E,HKU1,NL63,OC4 Not Detected (NOT DETECT); Human Metapneumovirus Not Detected (NOT DETECT); Human Rhinovirus/Enterovirus Detected (NOT DETECT); Influenza A Not Detected (NOT DETECT); Influenza A H1 Not Detected (NOT DETECT); Influenza A H1-2009 Not Detected (NOT DETECT); Influenza A H3 Not Detected (NOT DETECT); Influenza B Not Detected (NOT DETECT); Mycoplasma Pneumoniae Not Detected (NOT DETECT); Parainfluenza Virus Type 1 Not Detected (NOT DETECT); Parainfluenza Virus Type 2 Not Detected (NOT DETECT); Parainfluenza Virus Type 3 Not Detected (NOT DETECT); Parainfluenza Virus Type 4 Not Detected (NOT DETECT); Respiratory Syncytial Virus A Not Detected (NOT DETECT); Respiratory Syncytial Virus B Not Detected (NOT DETECT); SARS-COV-2 Not Detected (NOT DETECT)
[2023-02-01 19:20] LABS: Human Metapneumovirus Not Detected (NOT DETECT); Human Rhinovirus/Enterovirus Detected (NOT DETECT); Results from GEN
[2023-02-01 20:25] LABS: Alcohol Level 134 mg/dL (0-10)
[2023-02-01 22:15] VITALS: BP 139/89; PULSE 87; RESP 17; O2SAT 98
[2023-02-01] MEDS: LORazepam 2 mg Tablet PO (22:33)
[2023-02-01 22:35] LABS: Alcohol Level 72 mg/dL (0-10)
[2023-02-02 01:01] VITALS: BP 147/98; PULSE 87; RESP 20; O2SAT 98
[2023-02-02] MEDS: LORazepam 2 mg/mL INJ 1 mL IM (01:12)
== END 2023-02-02 01:26 ==
PROVIDERS: Emergency Medicine; Emergency Provider Emergency Medicine; PCP Family Medicine
DX: R45.851 Suicidal ideations (principal); Z77.22 Contact with and (suspected) exposure to environmental tobacco smoke (acute) (chronic)
CPT/HCPCS: 36415; 71045; 80053; 80306; 80307; 81003; 85025; 87635; 87801; 93005; 96372; 99285; J2060

== ENCOUNTER 2023-03-14 18:37 | Emergency (ER) | payer MEDICAID, SELFPAY ==
[2023-03-14 18:38] VITALS: BP 127/78; PULSE 85; RESP 16; TEMP 36.7; O2SAT 98
--- NOTE | 2023-03-14 18:43 | ED_ITS ---
HPI - Male Genitourinary General: Chief complaint: Urogenital-Male Stated complaint: Hematuria Time Seen by Provider: 03/14/23 18:42 History of Present Illness: 47-year-old male patient brought in by EMS for concerns of blood in urine. Patient denies any other complaints. Patient was alert and oriented and speaking appropriately. Patient does admit to drinking alcohol. Patient states that sometimes when he drinks he noticed some blood in his urine. Patient does have a history of BPH and uses Flomax. Associated symptoms: Reports hematuria Review of Systems General: Reports: 10 or more systems reviewed and unremarkable except in HPI and below : Reports: hematuria; Denies: difficulty urinating [facility] ED PFSH: Medical History Adjustment disorder with mixed disturbance of emotions and conduct Alcohol use disorder -Has known history of alcohol abuse&DT Atrial fibrillation Atrial flutter Bipolar 1 disorder, manic, mild Depressive disorder, not elsewhere classified Methamphetamine abuse -UDS positive for amphetamines/THC Surgical History H/O hernia repair History of appendectomy Family History Other Alcoholism /alcohol abuse Social History Quit status (tobacco/nicotine): has tried quititng Number of times tried to q uit tobacco: 4 Second hand smoke exposure: Yes Alcohol intake: current Substance/Drug Use: current Current gender identity: Male Physical Exam Const: COMMON NORMALS: alert HENMT: COMMON NORMALS: normocephalic HEAD & SCALP: normocephalic Neck/C-Spine: COMMON NORMALS: full ROM Resp: COMMON NORMALS: normal respiratory effort Cardio: COMMON NORMALS: regular rate RATE: regular rate GI: COMMON NORMALS: non-tender : COMMON NORMALS: Yes no CVA tenderness BLADDER/KIDNEY EXAM: Yes no CVA tenderness Back/Pelvis: COMMON NORMALS: no CVA tenderness Extremity: COMMON NORMALS: normal to inspection Neuro: SENSORIUM/ORIENTATION: Yes alert Skin: COMMON NORMALS: turgor normal GENERAL SKIN EXAM: turgor normal Course Vital Signs: Vital signs: Vital Signs Temperature 98.1 F 10/12/23 18:38 Pulse Rate 91 03/14/23 18:47 Respiratory Rate 18 03/14/23 18:47 Blood Pressure 127/78 03/14/23 18:47 Pulse Oximetry 99 03/14/23 18:47 Oxygen Delivery Me thod Room Air 03/14/23 18:47 MDM - Male Medical Decision Making Patient was brought in by EMS for concerns of blood in his urine. Patient appears nontoxic. Patient appears in no pain. Differential diagnosis includes hematuria, bladder cancer, urinary tract infection, renal calculi. Patient cannot urinate due to having urinated in the back of the ambulance. Patient did not want to wait until he could urinate again and signed out AMA. I encourage patient to stay until after urine collection but he said he did not feel unwell and wanted to leave in order to go get a drink. No radiology studies performed this visit Discharge Plan Discharge Patient Disposition: Left Against Medical Advice Clinical Impression: Alcohol use disorder Hematuria Qualifiers: Hematuria type: unspecified type Qualified Code(s): R31.9 - Hematuria, unspecified Condition: Stable Prescriptions: No Action paroxetine HCl 20 mg Tablet 40 mg PO BEDTIME 30 Days Qty: 60 1RF quetiapine 200 mg tablet 200 mg PO BEDTIME Qty: 30 1RF hydroxyzine pamoate [Vistaril] 50 mg Capsule 50 mg PO QID PRN (Reason: Agitation) 30 Days Qty: 120 1RF tamsulosin [Flomax] 0.4 mg Capsule 0.4 mg PO BEDTIME 30 Days Qty: 30 1RF pantoprazole 40 mg tablet,delayed release (DR/EC) 40 mg PO DAILY 30 Days Qty: 30 1RF lurasidone [Latuda] 40 mg Tablet 40 mg PO QPM 30 Days Qty: 30 1RF Rx Instructions: must administer with food (at least 350 calories) aspirin 81 mg Tablet,Delayed Release (Dr/Ec) 162 mg PO DAILY Qty: 60 0RF metoprolol tartrate 25 mg tablet 12.5 mg PO BID Qty: 30 0RF Referrals: Chayito Cali MD [Primary Care Provider] - Patient Instructions: Opioid Safety, Pain Management Coding Level of Care Code ED Composition Floor Layer for Camila Alvares
[2023-03-14 18:47] VITALS: BP 127/78; PULSE 91; RESP 18; O2SAT 99
== END 2023-03-14 19:07 | disposition left against medical advice (07) ==
PROVIDERS: Emergency Provider Nurse Practitioner Family; PCP Family Medicine
DX: R31.9 Hematuria, unspecified (principal); F10.10 Alcohol abuse, uncomplicated; Z79.82 Long term (current) use of aspirin; Z53.21 Procedure and treatment not carried out due to patient leaving prior to being seen by health care provider
CPT/HCPCS: 99281

== ENCOUNTER 2023-03-23 17:35 | Emergency (ER) | payer MEDICAID, SELFPAY ==
[2023-03-23 17:36] VITALS: PULSE 106; RESP 16; TEMP 36; O2SAT 96; BMI 25.8
--- NOTE | 2023-03-23 17:41 | XRR_ITS ---
PROCEDURE INFORMATION: Exam: XR Right Hand Exam date and time: 03/23/2023 6:05 PM Age: 47 years old Clinical indication: Injury or trauma; Swelling (edema); Right; Patient HX: RT hand pain/swelling post fall TECHNIQUE: Imaging protocol: Radiologic exam of the right hand. Views: 1 or 2 views. COMPARISON: No relevant prior studies available. FINDINGS: Bones/joints: No acute findings in visualized osseous structures of the hand. Watch and bracelet over the wrist obscures evaluation of the radius, ulna and carpal bones. Soft tissues: Normal. XR/XR hand RT 2V [id number] IMPRESSION: No acute findings in visualized osseous structures of the hand. Watch and bracelet over the wrist obscures evaluation of the radius, ulna and carpal bones.
--- NOTE | 2023-03-23 17:41 | XRR_ITS ---
PROCEDURE INFORMATION: Exam: XR Chest Exam date and time: 03/23/2023 6:05 PM Age: 47 years old Clinical indication: Injury or trauma; Swelling (edema); Patient HX: Rib pain post fall; Intoxication; SOB TECHNIQUE: Imaging protocol: Radiologic exam of the chest. Views: 1 view. COMPARISON: CR XR chest 1V portable [id number] 02/01/2023 4:17 PM FINDINGS: Lungs: Unremarkable. No consolidation. Pleural spaces: Unremarkable. No pleural effusion. No pneumothorax. Heart/Mediastinum: Unremarkable. No cardiomegaly. Bones/joints: Unremarkable. XR/XR chest 1V portable [id number] IMPRESSION: No acute findings.
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
--- NOTE | 2023-03-23 17:41 | CTR_ITS ---
PROCEDURE INFORMATION: Exam: CT Cervical Spine Without Contrast Exam date and time: 03/23/2023 6:04 PM Age: 47 years old Clinical indication: Injury or trauma; Fall; Blunt trauma; Additional info: Intoxicated with head injury C/O neck pain TECHNIQUE: Imaging protocol: Computed tomography of the cervical spine without contrast. Radiation optimization: All CT scans at this facility use at least one of these dose optimization techniques: automated exposure control; mA and/or kV adjustment per patient size (includes targeted exams where dose is matched to clinical indication); or iterative reconstruction. REPORTING DATA: Count of CT and Cardiac NM exams in prior 12 months: This patient has received 2 known CTs and 0 known cardiac nuclear medicine studies in the 12 months prior to the current study. COMPARISON: CT cervical spin wo con* [id number] 09/29/2019 11:47 PM RADIATION DOSE METRICS: Total DLP (mGy-cm): 583.7 FINDINGS: Bones/joints: Vertebral body heights are preserved. No compression fractures are noted. Vertebral alignment is physiologic. Degenerative intervertebral disc narrowing noted at C5-C6. Intervertebral disc space heights are otherwise preserved. The facet joints are intact. Lungs: The lung apices are clear. Pleural spaces: No apical pneumothorax demonstrated. Soft tissues: The soft tissues are unremarkable. CT/CT cervical spin wo con* [id number] IMPRESSION: 1. No acute abnormality of the cervical spine. 2. There is no interval change from the prior examination.
--- NOTE | 2023-03-23 17:49 | W.ED.ALCOHOL ---
Documented by User: Marco Arnett 03/23/23 18:05 HPI - Alcohol General: Chief Complaint: Alcohol Stated Complaint: ETOH; COMBATIVE Time Seen by Provider: 03/23/23 17:40 History of Present Illness: 47-year-old male presents by EMS chief complaint of being intoxicated with alcohol reports he drink a substantial alcohol prior to arrival in which she had either fallen from standing but somehow struck his head is unclear whether or not he had a loss of consciousness he is complaining of a mild headache is also reports having some bruising and swelling noted to his right hand. Patient reports some mild neck pain with this reports no other associated injuries. Associated symptoms: Deny abdominal pain, depression, nausea or vomiting Review of Systems General: Reports: 10 or more systems reviewed and unremarkable except in HPI and below Const: Denies: fever(s), chills, fatigue or malaise Eyes: Denies: change in vision or blurry vision Card: Denies: chest pain or palpitations Resp: Denies: dyspnea or productive cough GI: Denies: abdominal pain, nausea or vomiting : Denies: flank pain Musc: Reports: neck pain, extremity pain and extremity swelling Skin/Breast: Denies: rash or pruritus Neuro: Denies: headache(s) Psych: Denies: anxiety or depression [place]/Lymph: Denies: easy bleeding All/Imm: Denies: urticaria, throat swelling or facial swelling PFSH ED PFSH: Medical History Adjustment disorder with mixed disturbance of emotions and conduct Alcohol use disorder -Has known history of alcohol abuse&DT Atrial fibrillation Atrial flutter Bipolar 1 disorder, manic, mild Depressive disorder, not elsewhere classified Methamphetamine abuse -UDS positive for amphetamines/THC Surgical History H/O hernia repair History of appendectomy Family History Other Alcoholism /alcohol abuse Social History Quit status (tobacco/nicotine): has tried quititng Number of times tried to quit tobacco: 4 Second hand smoke exposure: Yes Alcohol intake: current Substance/Drug Use: current Current gender identity: Male Physical Exam Narrative: EXAM NARRATIVE: Patient appears intoxicated with slurred speech and unsteady gait Const: COMMON NORMALS: no acute distress, patient oriented x3 and healthy appearing HENMT: COMMON NORMALS: normocephalic (What appears to be a fairly large hematoma noted to the anterior forehead w), atraumatic and hearing grossly normal bilaterally HEAD & SCALP: normocephalic (What appears to be a fairly large hematoma noted to the anterior forehead w) and atraumatic Eye: COMMON NORMALS: Equal, round and reactive pupils present and EOMs intact bilaterally PUPIL: Yes Equal, round and reactive pupils present Neck/C-Spine: COMMON NORMALS: full ROM (However mild tenderness noted to the posterior neck no obvious bruising alondra), supple and no JVD Lymph: LYMPHATIC: no lymphadenopathy noted Chest: COMMONS NORMALS: normal inspection of the chest and normal palpation of entire chest wall Resp: COMMON NORMALS: normal respiratory effort, No retractions and clear to auscultation bilaterally EFFORT & INSPECTION: Yes able to speak in complete sentences and Yes symmetric chest movement AUSCULTATION: clear to auscultation bilaterally Cardio: COMMON NORMALS: no JVD, regular rate and regular rhythm RATE: regular rate RHYTHM: regular rhythm GI: COMMON NORMALS: Normal to inspection, nondistended, normoactive bowel sounds present, Soft to palpation and non-tender INSPECTION: Yes normal to inspection PALPATION: Yes Soft to palpation : COMMON NORMALS: Yes no CVA tenderness BLADDER/KIDNEY EXAM: Yes no CVA tenderness Back/Pelvis: COMMON NORMALS: no CVA tenderness Extremity: COMMON NORMALS: full ROM; negative for normal to inspection (Mild swelling appreciated to the right hand knuckles and old abrasions and ) Neuro: COMMON NORMALS: patient oriented x3, CN's II-XII intact bilaterally, moves all extremities and no focal motor deficits Psych: COMMON NORMALS: mental status grossly normal, Normal thought process present, cooperative and normal affect THOUGHT PROCESS: Normal thought process present Skin: COMMON NORMALS: no rashes or lesions noted GENERAL SKIN EXAM: no rashes or lesions noted Course Vital Signs: Vital signs: Vital Signs Temperature 96.8 F L 03/23/23 17:36 Pulse Rate 106 H 03/23/23 17:36 Respiratory Rate 16 03/23/23 17:36 Pulse Oximetry 96 03/23/23 17:36 MDM - Alcohol Medical Decision Making Due to patient's symptoms and condition CT imaging the head cervical spine will be obtained x-ray imaging of the chest and of the right hand will be obtained we will continue to follow. This patient was signed out to my colleague Dr. Mccurdy at 1800 anticipate probable discharge home pending imaging and patient demonstrating clinical sobriety. Lab Data Radiology Impressions Cervical Spine CT 03/23/23 17:41 IMPRESSION: 1. No acute abnormality of the cervical spine. 2. There is no interval change from the prior examination. Chest X-Ray 03/23/23 17:41 IMPRESSION: No acute findings. Hand X-Ray 03/23/23 17:41 IMPRESSION: No acute findings in visualized osseous structures of the hand. Watch and bracelet over the wrist obscures evaluation of the radius, ulna and carpal bones. Head CT 03/23/23 17:41 IMPRESSION: 1. No acute intracranial abnormality demonstrated. 2. Mild anterior soft tissue swelling. No associated calvarial fracture. All radiology interpretation(s) finalized by discharge Discharge Plan Discharge Patient Disposition: Home Clinical Impression: Alcohol abuse, Fall from standing, Contusion of forehead, Localized swelling on right hand Condition: Stable Prescriptions: No Action paroxetine HCl 20 mg Tablet 40 mg PO BEDTIME 30 Days Qty: 60 1RF quetiapine 200 mg tablet 200 mg PO BEDTIME Qty: 30 1RF hydroxyzine pamoate [Vistaril] 50 mg Capsule 50 mg PO QID PRN (Reason: Agitation) 30 Days Qty: 120 1RF tamsulosin [Flomax] 0.4 mg Capsule 0.4 mg PO BEDTIME 30 Days Qty: 30 1RF pantoprazole 40 mg tablet,delayed release (DR/EC) 40 mg PO DAILY 30 Days Qty: 30 1RF lurasidone [Latuda] 40 mg Tablet 40 mg PO QPM 30 Days Qty: 30 1RF Rx Instructions: must administer with food (at least 350 calories) aspirin 81 mg Tablet,Delayed Release (Dr/Ec) 162 mg PO DAILY Qty: 60 0RF metoprolol tartrate 25 mg tablet 12.5 mg PO BID Qty: 30 0RF Discharge Orders: Discharge ED (Routine); Ordered 03/23/23 Ordered By: Pete Mccurdy Referrals: Chayito Cali MD [Primary Care Provider] - 1-3 days Patient Instructions: Concussion (ED), Alcohol Intoxication (ED), Contusion in Adults (ED), Facial Contusion (ED), Opioid Safety, Pain Management Coding Level of Care Code ED Inspector [employer] for Camila Fwd Documented by User: Pete Mccurdy DO 03/24/23 19:50 HPI - Alcohol General: Chief Complaint: Alcohol Stated Complaint: ETOH; COMBATIVE Time Seen by Provider: 03/23/23 17:40 [facility] ED PFSH: Medical History Adjustment disorder with mixed disturbance of emotions and conduct Alcohol use disorder -Has known history of alcohol abuse&DT Atrial fibrillation Atrial flutter Bipolar 1 disorder, manic, mild Depressive disorder, not elsewhere classified Methamphetamine abuse -UDS positive for amphetamines/THC Surgical History H/O hernia repair History of appendectomy Family History Other Alcoholism /alcohol abuse Social History Quit status (tobacco/nicotine): has tried quititng Number of times tried to quit tobacco: 4 Second hand smoke exposure: Yes Alcohol intake: current Substance/Drug Use: current Current gender identity: Male Course Vital Signs: Vital signs: Vital Signs Temperature 96.8 F L 03/23/23 17:36 Pulse Rate 106 H 03/23/23 17:36 Respiratory Rate 16 03/23/23 17:36 Pulse Oximetry 96 03/23/23 17:36 MDM - Alcohol Medical Decision Making Due to patient's symptoms and condition CT imaging the head cervical spine will be obtained x-ray imaging of the chest and of the right hand will be obtained we will continue to follow. This patient was signed out to my colleague Dr. Mccurdy at 1800 anticipate probable discharge home pending imaging and patient demonstrating clinical sobriety. 47-year-old male checked out to me at change of shift this gentleman was pending x-rays of the chest, hand, cervical spine and head CTs. CTs are negative. X-rays of the chest and hand are negative for fracture, pneumothorax, etc. He will be discharged. Lab Data Radiology Impressions Cervical Spine CT 03/23/23 17:41 IMPRESSION: 1. No acute abnormality of the cervical spine. 2. There is no interval change from the prior examination. Chest X-Ray 03/23/23 17:41 IMPRESSION: No acute findings. Hand X-Ray 03/23/23 17:41 IMPRESSION: No acute findings in visualized osseous structures of the hand. Watch and bracelet over the wrist obscures evaluation of the radius, ulna and carpal bones. Head CT 03/23/23 17:41 IMPRESSION: 1. No acute intracranial abnormality demonstrated. 2. Mild anterior soft tissue swelling. No associated calvarial fracture. Discharge Plan Discharge Patient Disposition: Home Clinical Impression: Alcohol abuse, Fall from standing, Contusion of forehead, Localized swelling on right hand Condition: Stable Prescriptions: No Action paroxetine HCl 20 mg Tablet 40 mg PO BEDTIME 30 Days Qty: 60 1RF quetiapine 200 mg tablet 200 mg PO BEDTIME Qty: 30 1RF hydroxyzine pamoate [Vistaril] 50 mg Capsule 50 mg PO QID PRN (Reason: Agitation) 30 Days Qty: 120 1RF tamsulosin [Flomax] 0.4 mg Capsule 0.4 mg PO BEDTIME 30 Days Qty: 30 1RF pantoprazole 40 mg tablet,delayed release (DR/EC) 40 mg PO DAILY 30 Days Qty: 30 1RF lurasidone [Latuda] 40 mg Tablet 40 mg PO QPM 30 Days Qty: 30 1RF Rx Instructions: must administer with food (at least 350 calories) aspirin 81 mg Tablet,Delayed Release (Dr/Ec) 162 mg PO DAILY Qty: 60 0RF metoprolol tartrate 25 mg tablet 12.5 mg PO BID Qty: 30 0RF Discharge Orders: Discharge ED (Routine); Ordered 03/23/23 Ordered By: Pete Mccurdy Referrals: Chayito Cali MD [Primary Care Provider] - 1-3 days Patient Instructions: Concussion (ED), Alcohol Intoxication (ED), Contusion in Adults (ED), Facial Contusion (ED), Opioid Safety, Pain Management Coding Level of Care Code ED Inspector [employer] for Camila Alvares
== END 2023-03-23 19:17 | disposition home or self-care (01) ==
PROVIDERS: Emergency Provider Emergency Medicine; PCP Family Medicine
DX: F10.129 Alcohol abuse with intoxication, unspecified (principal); Y90.9 Presence of alcohol in blood, level not specified; S00.83XA Contusion of other part of head, initial encounter; M79.89 Other specified soft tissue disorders; Z79.82 Long term (current) use of aspirin; W18.30XA Fall on same level, unspecified, initial encounter
CPT/HCPCS: 70450; 71045; 72125; 73120; 99284

== ENCOUNTER 2023-03-29 15:21 | Inpatient (IN) | payer MEDICAID, SELFPAY ==
[2023-03-29 15:37] VITALS: BP 116/78; PULSE 92; RESP 18; TEMP 36.8; O2SAT 97
--- NOTE | 2023-03-29 16:02 | W.ED.ALCOHOL ---
HPI - Alcohol General: Chief Complaint: Alcohol Stated Complaint: ETOH AND METH ABUSE, SI AND HI Time Seen by Provider: 03/29/23 15:31 Source: patient Mode of arrival: EMS Limitations: no limitations History of Present Illness: This 47-year-old male with a history of hypertension and alcohol abuse presents to the ER intoxicated and expressing suicidal/homicidal thoughts. He drank about half a gallon of bourbon today and admitted to using methamphetamine about 2 days ago. Patient states that he plans to go to his ex-'s boyfriend's house and started fighting. It is either he kills his ex-'s boyfriend or the ex-'s boyfriend will kill him. Patient kept repeatedly stating that he wants to F...k up his ex-'s boyfriend. Associated symptoms: Reports depression and suicidal ideation Review of Systems Const: Denies: chills, body aches or change in appetite Eyes: Denies: change in vision or eye discharge ENMT: Denies: throat pain, dental pain or nasal discharge Card: Denies: chest pain or lightheadedness : Denies: dysuria Musc: Denies: neck pain or back pain Neuro: Denies: headache(s) or weakness in extremities Psych: Reports: depression, suicidal ideation, homicidal ideation and other (Intoxicated) [place]/Lymph: Denies: easy bruising All/Imm: Denies: urticaria, tongue swelling or facial swelling PFSH ED PFSH: Medical History Adjustment disorder with mixed disturbance of emotions and conduct Alcohol use disorder -Has known history of alcohol abuse&DT Atrial fibrillation Atrial flutter Bipolar 1 disorder, manic, mild Depressive disorder, not elsewhere classified Methamphetamine abuse -UDS positive for amphetamines/THC Surgical History H/O hernia repair History of appendectomy Family History Other Alcoholism /alcohol abuse Social History Quit status (tobacco/nicotine): has tried quititng Number of times tried to quit tobacco: 4 Second hand smoke exposure: Yes Alcohol intake: current Substance/Drug Use: current Current gender identity: Male Physical Exam Const: COMMON NORMALS: no acute distress, patient oriented x3 and no limitations OTHER: Sleepy but able to provide history and answer questions. Appears intoxicated. HENMT: COMMON NORMALS: normocephalic HEAD & SCALP: normocephalic Eye: COMMON NORMALS: EOMs intact bilaterally Neck/C-Spine: COMMON NORMALS: full ROM and supple Chest: COMMONS NORMALS: normal inspection of the chest Resp: COMMON NORMALS: normal respiratory effort, No retractions, No use of accessory muscles and clear to auscultation bilaterally AUSCULTATION: clear to auscultation bilaterally Cardio: COMMON NORMALS: regular rate, regular rhythm and No murmurs present (Cardio) RATE: regular rate RHYTHM: regular rhythm GI: COMMON NORMALS: Normal to inspection, nondistended, normoactive bowel sounds present and non-tender : COMMON NORMALS: Yes no CVA tenderness BLADDER/KIDNEY EXAM: Yes no CVA tenderness Back/Pelvis: COMMON NORMALS: no CVA tenderness and no thoracic nor lumbar tenderness Extremity: GENERAL: Yes normal exam except as noted Neuro: COMMON NORMALS: patient oriented x3 and no focal motor deficits Psych: COMMON NORMALS: mental status grossly normal and cooperative Course Vital Signs: Vital signs: Vital Signs Temperature 98.3 F 03/29/23 15:37 Pulse Rate 92 03/29/23 15:37 Respiratory Rate 18 03/29/23 15:37 Blood Pressure 116/78 03/29/23 15:37 Pulse Oximetry 97 03/29/23 15:37 Oxygen Delivery Me thod Room Air 03/29/23 15:37 MDM - Alcohol Medical Decision Making Medical decision making: On patient reevaluation, he kept insisting that he will leave the ER and savage down the gentleman he believes has been sleeping with his . So, case discussed with Psychiatrist on-call. He recommended admitting patient for further evaluation. Lab Data 03/29/23 16:22 03/29/23 16:22 Laboratory Results WBC 5.29 10^3/uL (3.29-11.43) 03/29/23 16:22 RBC 3.96 10^6/uL (3.85-5.65) 03/29/23 16:22 Hgb 14.40 g/dL (11.27-16.99) 03/29/23 16: Hct 44.9 % (37-53) 03/29/23 16: MCV 113.4 fl (82-101) H 03/29/23 16:22 MCH 36.4 pg (27-33) H 03/29/23 16: MCHC 32.1 g/dL (30-55) 03/29/23 16:22 RDW 13.3 % (12.1-15.1) 03/29/23 16:22 Plt Count 287 10^3/cmm (157-399) 03/29/23 16:22 MPV 9.0 fL (7.4-10.4) 03/29/23 16:22 Neut % (Auto) 60.6 % 03/29/23 16:22 Lymph % (Auto) 34.4 % 03/29/23 16:22 Towns % (Auto) 3.8 % 03/29/23 16: Eos % (Auto) 0.6 % 03/29/23 16:22 Baso % (Auto) 0.4 % 03/29/23 16:22 Neut # (Auto) 3.21 10^3/uL (1.8-7.7) 03/29/23 16:22 Lymph # (Auto) 1.8 10^3/uL (0.8-4.8) 03/29/23 16:22 Towns # (Auto) 0.2 10^3/uL (0.2-0.9) 03/29/23 16:22 Eos # (Auto) 0.0 10^3/uL (0.0-0.8) 03/29/23 16:22 Baso # (Auto) 0.0 10^3/uL (0.0-0.1) 03/29/23 16: Nucleated RBC % (auto) 0 % 03/29/23 16: Nucleated RBCs # 0.0 /100WBC 03/29/23 16:22 Sodium 145 mmol/L (136-145) 03/29/23 16:22 Potassium 3.7 mmol/L (3.5-5.1) 03/29/23 16:22 Chloride 108 mmol/L (98-107) H 03/29/23 16:22 Carbon Dioxide 24 mmol/L (22-29) 03/29/23 16:22 Anion Gap 16.7 (5-19) 03/29/23 16:22 BUN 12 mg/dL (6-20) 03/29/23 16:22 Creatinine 0.8 mg/dL (0.7-1.2) 03/29/23 16:22 GFR Calculation 104.1 mL/min (90-130) 03/29/23 16:22 Glucose 101 mg/dL (65-115) 03/29/23 16:22 Calculated Osmolality 300 mOsm/kg (285-295) H 03/29/23 16:22 Calcium 8.7 mg/dL (8.5-10.5) 03/29/23 16:22 Total Bilirubin 0.2 mg/dL (0.15-1.2) 03/29/23 16:22 AST 21 U/L (0-40) 03/29/23 16:22 ALT 29 U/L (0-41) 03/29/23 16:22 Alkaline Phosphatase 70 U/L (40-130) 03/29/23 16:22 Total Protein 7.0 g/dL (6.6-8.7) 03/29/23 16:22 Albumin 3.9 g/dL (3.5-5.2) 03/29/23 16:22 Globulin 3.1 g/dL (1.3-4.6) 03/29/23 16:22 TSH 0.73 uIU/mL (0.27-4.20) 03/29/23 16:22 Urine Color Yellow (Yellow) 03/29/23 16:55 Urine Appearance Clear (CLEAR) 03/29/23 16:55 Urine pH 5 (5-7) 03/29/23 16:55 Ur Specific [place] 1.015 (1.005-1.030) 03/29/23 16:55 Urine Protein Neg (Negative) 03/29/23 16:55 Urine Glucose (UA) Norm (Normal) 03/29/23 16:55 Urine Ketones Negative (Negative) 03/29/23 16:55 Urine Blood Neg (Negative) 03/29/23 16:55 Urine Nitrate Negative (Negative) 03/29/23 16:55 Urine Bilirubin Neg (Negative) 03/29/23 16:55 Urine Urobilinogen Norm mg/dL (Negative) 03/29/23 16:55 Ur Leukocyte Esterase Negative (Negative) 03/29/23 16:55 Salicylates < 0.3 mg/dL (3-10) L 03/29/23 16:22 Urine Opiates Screen Negative ng/mL (Negative) 03/29/23 16:55 Acetaminophen < 5.0 ug/mL (10-30) L 03/29/23 16:22 Ur Barbiturates Screen Negative ng/mL (Negative) 03/29/23 16:55 Ur Phencyclidine Scrn Negative ng/mL (Negative) 03/29/23 16:55 Ur Amphetamines Screen Positive ng/mL (Negative) H 03/29/23 16:55 U Benzodiazepines Scrn Negative ng/mL (Negative) 03/29/23 16:55 Urine Cocaine Screen Negative ng/mL (Negative) 03/29/23 16:55 U Marijuana (THC) Screen Positive ng/mL (Negative) H 03/29/23 16:55 Ethyl Alcohol 259 mg/dL (0-10) H 03/29/23 16:22 No radiology studies performed this visit Discharge Plan Discharge Patient Disposition: Admitted As Inpatient Clinical Impression: Alcohol intoxication, Suicide ideation, Homicidal ideation Condition: Stable Coding Level of Care Code ED Scrub Wheel Operator for Camila Alvares
[2023-03-29 16:30] LABS: Basophils % 0.4 %; Eosinophils % 0.6 %; Hematocrit 44.9 % (37-53); Lymphocytes # 1.8 10^3/uL (0.8-4.8); Lymphocytes % 34.4 %; Mean Corpuscular HGB Conc 32.1 g/dL (30-55); Mean Corpuscular Hemoglobin 36.4 pg (27-33); Mean Corpuscular Volume 113.4 fl (82-101); Monocytes # 0.2 10^3/uL (0.2-0.9); Monocytes % 3.8 %; Neutrophils # 3.21 10^3/uL (1.8-7.7); Neutrophils % 60.6 %; Nucleated Red Blood Cells % 0 %; Platelet Count 287 10^3/cmm (157-399); Red Blood Count 3.96 10^6/uL (3.85-5.65); Red Cell Distribution Width 13.3 % (12.1-15.1); White Blood Count 5.29 10^3/uL (3.29-11.43)
[2023-03-29 17:09] LABS: Add Urine Microscopic? NO; Charge for UA Resulting for Rev
[2023-03-29 17:12] LABS: Alanine Aminotransferase 29 U/L (0-41); Albumin Level 3.9 g/dL (3.5-5.2); Alcohol Level 259 mg/dL (0-10); Alkaline Phosphatase 70 U/L (40-130); Anion Gap 16.7 (5-19); Aspartate Amino Transferase 21 U/L (0-40); Blood Urea Nitrogen 12 mg/dL (6-20); Calcium 8.7 mg/dL (8.5-10.5); Carbon Dioxide 24 mmol/L (22-29); Chloride 108 mmol/L (98-107); Globulin 3.1 g/dL (1.3-4.6); Glomerular Filtration Rate 104.1 mL/min (90-130); Glucose 101 mg/dL (65-115); Osmolality Calculated 300 mOsm/kg (285-295); Potassium 3.7 mmol/L (3.5-5.1); Sodium 145 mmol/L (136-145); Thyroid Stimulating Hormone 0.73 uIU/mL (0.27-4.20); Total Bilirubin 0.2 mg/dL (0.15-1.2)
[2023-03-29 17:16] LABS: Acetaminophen < 5.0 ug/mL (10-30); Salicylate < 0.3 mg/dL (3-10)
[2023-03-29 17:24] LABS: Bilirubin Urine Neg (Negative); Blood Urine Neg (Negative); Glucose Urine UA Norm (Normal); Ketones Urine Negative (Negative); Leukocyte Esterase Urine Negative (Negative); Nitrate Urine Negative (Negative); Protein Urine Neg (Negative); Specific Gravity, Urine 1.015 (1.005-1.030); Urine Appearance Clear (CLEAR); Urine Color Yellow (Yellow); Urobilinogen Urine Norm (Negative); pH Urine 5 (5-7)
[2023-03-29 17:28] LABS: Amphetamines Screen Urine Positive (Negative); Barbiturates Screen Urine Negative (Negative); Benzodiazepines Screen Urine Negative (Negative); Cocaine Screen Urine Negative (Negative); Opiate Screen Urine Negative (Negative); PCP Screen Urine Negative (Negative); THC Screen Urine Positive (Negative)
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
[2023-03-29 19:07] VITALS: BP 119/79; PULSE 90; RESP 18; TEMP 36.5; O2SAT 98
[2023-03-29 19:17] VITALS: BP 116/78; PULSE 92; RESP 18; O2SAT 97
[2023-03-29 19:42] VITALS: BP 119/79; PULSE 90; RESP 18; TEMP 36.4; O2SAT 98
[2023-03-29] MEDS: LORazepam 2 mg Tablet PO (19:55)
[2023-03-30 06:00] VITALS: BP 133/89; PULSE 80; RESP 16; O2SAT 96
[2023-03-30] MEDS: multivitamin therapeutic Tablet 1 TAB PO (08:25)
[2023-03-30] MEDS: folic acid 1 mg Tablet PO (08:25)
[2023-03-30] MEDS: thiamine 100 mg Tablet PO (08:25)
[2023-03-30] MEDS: OLANZapine 5 mg ODT PO (08:33)
--- NOTE | 2023-03-30 08:36 | PC.NURSE ---
During morning assessment, patient reported anxiety 11/10. Patient states that he always has anxiety and depression. Currently he said he is supposed to be picking up his from [place] and that is increasing his anxiety. Patient said that vistaril doesn't help him, he requested Haldol. This nurse administered Zyprexa 5mg ODt.
--- NOTE | 2023-03-30 08:41 | PC.NURSE ---
During morning assessment, patient reports anxiety 6/10. When asked about depression, patient stated that he always has depression and is always feeling sad. Patient denies SI, HI. Patient reports auditory hallucinations, voices that tell him what to do and are generally positive in nature.
[2023-03-30 13:23] VITALS: BP 127/86; PULSE 77; RESP 16; TEMP 36.4; O2SAT 97
--- NOTE | 2023-03-30 16:27 | W.PM.NPUPNS ---
Subjective NPU Subjective: Patient is a 47-year-old white male admitted with homicidal ideation , bipolar depression with a history of mood disorder and alcohol dependence. Patient was positive for methamphetamine and admitted to its use. He continued to minimize the significance of the use of methamphetamine and alcohol. He continued to make threats toward boyfriend of his ex-girlfriend. He appeared minimally engaged in treatment at this time. Mental Status Exam MSE Comments: This is a 47-year-old thin, male who appears approximately his stated age and is in moderate distress. He was malodorous, unkempt appearance, with poor hygiene and appeared alert but in and out of consciousness with poor grooming. There was evidence of psychomotor retardation. There is no evidence of any abnormal involuntary motor movements tics or tremors. Speech is scant but normal in volume, He was alert and oriented times 3. His attention span appeared variable. His recent remote memory appeared grossly intact. His thought process was linear but superficial. His thought content showed evidence of homicidal ideation but denied suicidal ideation. He denied any feelings of hopelessness or worthlessness. There was no clear evidence of delusional thinking. He did not appear to be responding to internal stimuli. His mood was described as mad. His affect was irritable. His insight and judgment appeared to be impaired. His impulse control is poor. Cognition: Patient Appearance: Appropriate Level of Consciousness: Awake, Alert, Appropriate and Follows Commands Patient Cognition Impaired: No Ability to Follow Directions: Good Patient Orientation (long list): Person, Place, Time, Name, Age, Birthday, Day of Month, Day of Week, Month, Time of Day and Year Comprehension Ability: No Impairment Hallucination Type: None Delusion Description: Not Present Thought Process: Blocking Vitals/I&O/Wt Last Vital Signs Temp 97.7 F 04/04/23 06:00 Pulse 84 04/04/23 06:00 Resp 17 04/04/23 06:00 BP 115/76 04/04/23 06:00 Pulse Ox 96 04/04/23 06:00 O2 Del Method Room Air 04/04/23 06:00 Data NPU 03/29/23 16:22 03/29/23 16:22 A&P Assessment and plan (1) Bipolar depression: (2) Homicidal ideation: (3) Alcohol dependence: (4) Anxiety disorder, unspecified: Plan 47-year-old male with alcohol dependence and reported history of bipolar disorder currently endorsing homicidal ideation, depressed mood and signficant alcohol use. Patient would likely benefit from acute inpatient stay with adjustment in his medications. He would likely benefit from inpatient treatment for alcohol abuse as well. ?1.? ? Engage? patient in individual ,milieu, and group therapy. Will restart Latuda at 60mg at night, restart Seroquel [id number]. Restart Cymbalta 60mg at night. 2. ? We will attempt to gather collateral information from previous providers ?3. ? TO-15 minute checks on the unit. 4.? Recommend sober living treatment at the highest level of care to which the patient is willing to commit. ?5. ? [facility] protocol, will attempt to confirm outpatient medications and consider restarting them. Involuntary Hold Information 96 Hour Hold: 96 Hour Involuntary Admission: No Attestations NPU Medical Necessity Statement*: Inpatient hospitalization is medically necessary and be clinically appropriate vet at this time.? We will monitor/initiate medications and make changes as indicated.? His likely length of stay 2-3 days. Coding Level of Care Code Acute Code for [facility] Fwd Diagnoses Bipolar depression F31.9 Homicidal ideation R45.850 Alcohol dependence F10.20 Anxiety disorder, unspecified F41.9
[2023-03-30] MEDS: quetiapine XR (24HR) 50 mg Tablet 200 MG PO (19:40)
[2023-03-30 19:56] VITALS: BP 120/74; PULSE 73; RESP 13; TEMP 36.5; O2SAT 98
[2023-03-31 06:00] VITALS: BP 128/82; PULSE 78; RESP 14; TEMP 36.6; O2SAT 99
[2023-03-31] MEDS: thiamine 100 mg Tablet PO (08:13)
[2023-03-31] MEDS: folic acid 1 mg Tablet PO (08:13)
[2023-03-31] MEDS: OLANZapine 5 mg ODT PO (08:13)
[2023-03-31] MEDS: pantoprazole DR 40 mg Tablet PO (08:13)
[2023-03-31] MEDS: multivitamin therapeutic Tablet 1 TAB PO (08:13)
[2023-03-31] MEDS: LORazepam 2 mg Tablet PO ×2 (08:17→17:16)
[2023-03-31] MEDS: nicotine 21 mg Patch 1 PATCH TRANSDERMA (08:53)
--- NOTE | 2023-03-31 13:24 | W.PM.NPUPNS ---
Subjective NPU Subjective: Patient is a 47-year-old white male admitted with homicidal ideation , bipolar depression with a history of mood disorder and alcohol dependence. Patient was positive for methamphetamine and admitted to its use. He continued to minimize the significance of the use of methamphetamine and alcohol. He reported that he needed to be back on all of his medications for his mood swings. He had endorsed using his medications inconsistently. He reported no suicidal thoughts. He had continued report having angry thoughts towards a lover of his ex girlfriend. Patient reported having problems with managing his anger. He had reported having been off of his medications for several weeks but then later reported that he had been taking his medicines as prescribed. Patient had stated that he had been at another facility since his last hospitalization here but was unable to recall what changes have been made. Mental Status Exam MSE Comments: This is a 47-year-old thin, male who appears approximately his stated age and is in moderate distress. He was malodorous, unkempt appearance, with poor hygiene and appeared alert but in and out of consciousness with poor grooming. There was evidence of psychomotor retardation. There is no evidence of any abnormal involuntary motor movements tics or tremors. Speech is productive and normal in volume, He was alert and oriented times 3. His attention span appeared variable. His recent remote memory appeared grossly intact. His thought process was linear but superficial. His thought content showed evidence of homicidal ideation but denied suicidal ideation. He denied any feelings of hopelessness or worthlessness. There was no clear evidence of delusional thinking. He did not appear to be responding to internal stimuli. His mood was described upset. His affect was mood congruent and irritable. His insight and judgment appeared to be poor. His impulse control is poor. Cognition: Patient Appearance: Appropriate Level of Consciousness: Awake, Alert, Appropriate and Follows Commands Patient Cognition Impaired: No Ability to Follow Directions: Good Patient Orientation (long list): Person, Place, Time, Name, Age, Birthday, Day of Month, Day of Week, Month, Time of Day and Year Comprehension Ability: No Impairment Hallucination Type: None Delusion Description: Not Present Thought Process: Blocking Vitals/I&O/Wt Last Vital Signs Temp 97.9 F 03/31/23 06:00 Pulse 78 03/31/23 06:00 Resp 14 03/31/23 06:00 BP 128/82 03/31/23 06:00 Pulse Ox 99 03/31/23 06:00 O2 Del Method Room Air 03/31/23 06:00 Weight last 48 hrs Weight 62.959 kg Data NPU 03/29/23 16:22 03/29/23 16:22 A&P Assessment and plan (1) Bipolar depression: (2) Homicidal ideation: (3) Alcohol dependence: (4) Anxiety disorder, unspecified: Plan 47-year-old male with alcohol dependence and reported history of bipolar disorder currently endorsing homicidal ideation, depressed mood and signficant alcohol use. Patient would likely benefit from acute inpatient stay with adjustment in his medications. He would likely benefit from inpatient treatment for alcohol abuse as well. ?1.? ? Engage? patient in individual ,milieu, and group therapy. Restart Latuda at 60mg at night, continue Seroquel [id number]. Restart Cymbalta 60mg at night. 2. ? We will attempt to gather collateral information from previous providers ?3. ? TO-15 minute checks on the unit. 4.? Recommend sober living treatment at the highest level of care to which the patient is willing to commit. ?5. ? [facility] protocol, will attempt to confirm outpatient medications and consider restarting them. Involuntary Hold Information 96 Hour Hold: 96 Hour Involuntary Admission: No Attestations NPU Medical Necessity Statement*: Inpatient hospitalization is medically necessary and be clinically appropriate vet at this time.? We will monitor/initiate medications and make changes as indicated.? His likely length of stay 3-5 days. Coding Level of Care Code Acute Code for [facility] Fw Diagnoses Bipolar depression F31.9 Homicidal ideation R45.850 Alcohol dependence F10.20 Anxiety disorder, unspecified F41.9
[2023-03-31 14:00] VITALS: BP 136/97; PULSE 80; RESP 16; TEMP 36.8; O2SAT 99
[2023-03-31] MEDS: tamsulosin 0.4 mg Capsule PO (17:16)
[2023-03-31] MEDS: lurasidone 20 mg Tablet 60 MG PO (17:16)
[2023-03-31] MEDS: quetiapine XR (24HR) 50 mg Tablet 200 MG PO (18:11)
[2023-04-01 06:00] VITALS: BP 140/95; PULSE 87; RESP 16; TEMP 36.5; O2SAT 98
[2023-04-01] MEDS: benztropine 1 mg Tablet PO (09:09)
[2023-04-01] MEDS: duloxetine 60 mg Capsule PO (09:09)
[2023-04-01] MEDS: tamsulosin 0.4 mg Capsule PO (09:09)
[2023-04-01] MEDS: multivitamin therapeutic Tablet 1 TAB PO (09:09)
[2023-04-01] MEDS: thiamine 100 mg Tablet PO (09:09)
[2023-04-01] MEDS: folic acid 1 mg Tablet PO (09:09)
[2023-04-01] MEDS: nicotine 21 mg Patch 1 PATCH TRANSDERMA (09:09)
[2023-04-01] MEDS: pantoprazole DR 40 mg Tablet PO (09:09)
[2023-04-01] MEDS: LORazepam 2 mg Tablet PO (10:42)
[2023-04-01 13:33] VITALS: BP 128/86; PULSE 105; RESP 16; TEMP 36.9; O2SAT 100
--- NOTE | 2023-04-01 14:12 | P.NPUPN_ITS ---
Subjective NPU Subjective: Patient is a 47-year-old white male admitted with homicidal ideation , bipolar depression with a history of mood disorder and alcohol dependence. Patient continued to endorse homicidal ideation. He reported that he needed to be back on his medication. He had appeared somewhat demanding on the milieu. He appeared to show little interest in groups and was minimally engaged with his peers. Patient had reported some difficulties falling asleep. He had reported that he was uncertain of his living situation despite previously stating that he would return home to his . Patient reported the continued presence of mood swings. Mental Status Exam MSE Comments: This is a 47-year-old thin, male who appears approximately his stated age and is in no acute distress. He was malodorous, unkempt appearance, with poor hygiene and appeared alert and oriented x3. There was evidence of mild psychomotor retardation. There is no evidence of any abnormal involuntary motor movements tics or tremors. Speech is productive and normal in volume and rate. He was alert and oriented times 3. His attention span appeared variable. His recent remote memory appeared grossly intact. His thought process was linear but superficial. His thought content showed evidence of homicidal ideation but denied suicidal ideation. He denied any feelings of hopelessness or worthlessness. There was no clear evidence of delusional thinking. He did not appear to be responding to internal stimuli. His mood was described upset. His affect was mood congruent and irritable. His insight and judgment appeared to be poor. His impulse control is poor. Vitals/I&O/Wt Last Vital Signs Temp 98.4 F 04/01/23 13:33 Pulse 105 H 04/01/23 13:33 Resp 16 04/01/23 13:33 BP 128/86 04/01/23 13:33 Pulse Ox 100 04/01/23 13:33 O2 Del Method Room Air 04/01/23 13:33 Weight last 48 hrs Weight 62.959 kg Data NPU 03/29/23 16:22 03/29/23 16:22 A&P Assessment and plan (1) Bipolar depression: (2) Homicidal ideation: (3) Alcohol dependence: (4) Anxiety disorder, unspecified: (5) Malingering: Plan 47-year-old male with alcohol dependence and reported history of bipolar disorder currently endorsing homicidal ideation, depressed mood and signficant alcohol use. Patient would likely benefit from acute inpatient stay with adjustment in his medications. He would likely benefit from inpatient treatment for alcohol abuse as well. ?1.? ? Engage? patient in individual ,milieu, and group therapy. Continue Latuda at 60mg at night, continue Seroquel [id number]. Continue Cymbalta 60mg at night. 2. ? We will attempt to gather collateral information from previous providers ?3. ? TO-15 minute checks on the unit. 4.? Recommend sober living treatment at the highest level of care to which the patient is willing to commit. ?5. ? [facility] protocol, will attempt to confirm outpatient medications and consider restarting them. Involuntary Hold Information 96 Hour Hold: 96 Hour Involuntary Admission: No Attestations NPU Medical Necessity Statement*: Inpatient hospitalization is medically necessary and be clinically appropriate vet at this time.? We will monitor/initiate medications and make changes as indicated.? His likely length of stay 2-4 days. Coding Level of Care Code Acute Code for [facility] Fwd Diagnoses Bipolar depression F31.9 Homicidal ideation R45.850 Alcohol dependence F10.20 Anxiety disorder, unspecified F41.9 Malingering Z76.5
[2023-04-01] MEDS: OLANZapine 5 mg ODT PO (14:59)
[2023-04-01] MEDS: lurasidone 20 mg Tablet 60 MG PO (17:04)
[2023-04-01] MEDS: hyDROXYzine 25 mg Capsule 50 MG PO (17:09)
[2023-04-01] MEDS: quetiapine XR (24HR) 300 mg Tablet PO (18:14)
[2023-04-01] MEDS: trazodone 50 mg Tablet PO (20:39)
[2023-04-01] MEDS: ondansetron 4 MG Tablet PO (20:39)
[2023-04-01 20:42] VITALS: BP 112/64; PULSE 80; RESP 18; TEMP 36.6; O2SAT 94
[2023-04-02 06:00] VITALS: BP 114/73; PULSE 67; RESP 18; TEMP 36.6; O2SAT 95
[2023-04-02] MEDS: thiamine 100 mg Tablet PO (08:27)
[2023-04-02] MEDS: tamsulosin 0.4 mg Capsule PO (08:27)
[2023-04-02] MEDS: duloxetine 60 mg Capsule PO (08:27)
[2023-04-02] MEDS: multivitamin therapeutic Tablet 1 TAB PO (08:27)
[2023-04-02] MEDS: pantoprazole DR 40 mg Tablet PO (08:27)
[2023-04-02] MEDS: folic acid 1 mg Tablet PO (08:27)
--- NOTE | 2023-04-02 09:14 | PC.NURSE ---
pt kicked door of bathroom in hallway of unit, while female patient was occupying the facility. when spoken about the incident Ludin stated well I didnt want to look at her if that is what you are thinking. I just kicked it because you are not taking care of me like i want you to. I need something for my agitation, and i am cold. when I suggested zyprexia pt started yelling what is zyprexia I want my detox medication thats is what the other hospital give me why dont you give me that. attempts to explain to patient what the medication zyprexia was for pt continued yelling I want a written copy of all my medication you are giving me. I want my detox medicine. I informed patient when he came to nurses station I would discuss his medicine with him and also give him medication for anxiety and aggression. pt continued to yell I want my detox medicine.
[2023-04-02] MEDS: OLANZapine 5 mg ODT PO (09:51)
[2023-04-02] MEDS: nicotine 4 mg lozenge MUCOUS MEM ×3 (12:22→18:10)
[2023-04-02 14:00] VITALS: BP 123/73; PULSE 73; RESP 16; TEMP 36.6; O2SAT 98
[2023-04-02] MEDS: naltrexone hcl 50 mg Tablet PO (14:39)
[2023-04-02] MEDS: gabapentin 300 mg Capsule PO ×2 (16:17→20:38)
--- NOTE | 2023-04-02 16:17 | P.NPUPN_ITS ---
Subjective NPU Subjective: Patient is a 47-year-old white male admitted with homicidal ideation , bipolar depression with a history of mood disorder and alcohol dependence. The patient had expressed interest in trying to get help for his addiction issues. He was willing to consider getting help as he had endorsed a history of alcohol dependence but stated that he may need a rehabilitation center that may keep him for at least 3 months. He had reported feeling less irritable. He had reported some problems with anxiety although he did not appear to have any clear alcohol withdrawal symptoms. He had reported some complaints of shooting nerve pain down his back and legs and stated previously having been on gabapentin to help with this problem. He was willing to discuss taking a medication to target his cravings for alcohol. He had reported that his home environment was not conducive to remaining sober as others in the household may have been struggling with addiction. Patient requested zypexa in place of seroquel to manage agitation. Mental Status Exam MSE Comments: This is a 47-year-old thin, male who appears approximately his stated age and is in no acute distress. He had an unkempt appearance, with poor hygiene and appeared alert and oriented x3. There was evidence of mild psychomotor retardation. There is no evidence of any abnormal involuntary motor movements tics or tremors. Speech is productive and normal in volume and rate. He was alert and oriented times 3. His attention span appeared variable. His recent remote memory appeared grossly intact. His thought process was linear and goal oriented today. His thought content showed no evidence of homicidal ideation or suicidal ideation. He denied any feelings of hopelessness or worthlessness. There was no clear evidence of delusional thinking. He did not appear to be responding to internal stimuli. His mood was described okay. His affect remained somewhat irritable. His insight and judgment appeared to be poor. His impulse control is poor. Vitals/I&O/Wt Last Vital Signs Temp 97.9 F 04/02/23 14:00 Pulse 73 04/02/23 14:00 Resp 16 04/02/23 14:00 BP 123/73 04/02/23 14:00 Pulse Ox 98 04/02/23 14:00 O2 Del Method Room Air 04/02/23 14:00 Data NPU 03/29/23 16:22 03/29/23 16:22 A&P Assessment and plan (1) Bipolar depression: (2) Homicidal ideation: (3) Alcohol dependence: (4) Anxiety disorder, unspecified: (5) Malingering: Plan 47-year-old male with alcohol dependence and reported history of bipolar dis order currently endorsing homicidal ideation, depressed mood and signficant alcohol use. Patient would likely benefit from acute inpatient stay with adjustment in his medications. He would likely benefit from inpatient treatment for alcohol abuse as well. ?1.? ? Engage? patient in individual ,milieu, and group therapy. Continue Latuda at 60mg at night, discontinue Seroquel and begin zyprexa zydus 10mg at night. Continue Cymbalta 60mg at night. Add Naltrexone 50mg with plan to start vivit rol. 2. ? We will attempt to gather collateral information from previous providers ?3. ? TO-15 minute checks on the unit. 4.? Recommend sober living treatment at the highest level of care to which the patient is willing to commit. ?5. ?D/C [facility] protocol. Involuntary Hold Information 96 Hour Hold: 96 Hour Involuntary Admission: No Attestations NPU Medical Necessity Statement*: Inpatient hospitalization is medically necessary and be clinically appropriate vet at this time.? We will monitor/initiate medications and make changes as indicated.? His likely length of stay 2-4 days. Coding Level of Care Code Acute Code for [facility] Fwd Diagnoses Bipolar depression F31.9 Homicidal ideation R45.850 Alcohol dependence F10.20 Anxiety disorder, unspecified F41.9 Malingering Z76.5
[2023-04-02 16:54] LABS: Vitamin B12 823 pg/mL (232-1245)
[2023-04-02] MEDS: lurasidone 20 mg Tablet 60 MG PO (17:55)
[2023-04-02 19:03] LABS: Folate Level > 20.0 ng/mL (4.5-32.2)
[2023-04-02] MEDS: OLANZapine 10 mg ODT PO (20:38)
[2023-04-02 21:21] VITALS: BP 117/66; PULSE 70; RESP 18; O2SAT 96
--- NOTE | 2023-04-03 04:52 | PC.NURSE ---
Patient isolated to his room most of the shift and slept. He denies SI/HI/AVH, anxiety, depression and pain. Patient is medication compliant. No distress observed this shift.
[2023-04-03 06:00] VITALS: BP 115/71; PULSE 72; RESP 16; TEMP 36.5; O2SAT 98
[2023-04-03] MEDS: nicotine 4 mg lozenge MUCOUS MEM ×4 (08:42→16:30)
[2023-04-03] MEDS: folic acid 1 mg Tablet PO (08:43)
[2023-04-03] MEDS: duloxetine 60 mg Capsule PO (08:43)
[2023-04-03] MEDS: tamsulosin 0.4 mg Capsule PO (08:43)
[2023-04-03] MEDS: naltrexone hcl 50 mg Tablet PO (08:43)
[2023-04-03] MEDS: thiamine 100 mg Tablet PO (08:43)
[2023-04-03] MEDS: gabapentin 300 mg Capsule PO ×3 (08:43→19:45)
[2023-04-03] MEDS: pantoprazole DR 40 mg Tablet PO (08:43)
[2023-04-03] MEDS: multivitamin therapeutic Tablet 1 TAB PO (08:43)
[2023-04-03 14:00] VITALS: BP 153/94; PULSE 102; RESP 18; TEMP 36.8; O2SAT 97
--- NOTE | 2023-04-03 14:24 | W.PM.NPUPNS ---
Subjective NPU Subjective: Patient is a 47-year-old white male admitted with homicidal ideation , bipolar depression with a history of mood disorder and alcohol dependence. Patient did not endorse any significant alcohol withdrawal symptoms. He had expressed motivation with going to [facility] for extended substance abuse rehabilitation. He reported no side effects from his current medication. He had reported some pain issues with no complications or side effects reported since starting gabapentin. Patient reported no side effects from his naltrexone oral and was agreeable with intramuscular Vivitrol when available. Patient had a history of macrocytic anemia and had requested having a B12 shot as he had stated it had been helpful for his energy in the past. Patient reported no feelings of hopelessness. He had reported frustration with attempting to remain sober as another family member had significant addiction issues that complicated and interfered with his means of obtaining subsequent sobriety. Mental Status Exam MSE Comments: This is a 47-year-old thin, male who appears approximately his stated age and is in no acute distress. He had improved hygiene and appeared alert and oriented x3. There was evidence of mild psychomotor retardation. There is no evidence of any abnormal involuntary motor movements tics or tremors. Speech is productive and normal in volume and rate. He was alert and oriented times x3. His attention span appeared variable. His recent remote memory appeared grossly intact. His thought process was linear and goal oriented today. His thought content showed no evidence of homicidal ideation or suicidal ideation. He denied any feelings of hopelessness or worthlessness. There was no clear evidence of delusional thinking. He did not appear to be responding to internal stimuli. His mood was described allright. His affect remained somewhat irritable. His insight and judgment appeared to be poor. His impulse control is improving. Vitals/I&O/Wt Last Vital Signs Temp 97.7 F 04/03/23 06:00 Pulse 72 04/03/23 06:00 Resp 16 04/03/23 06:00 BP 115/71 04/03/23 06:00 Pulse Ox 98 04/03/23 06:00 O2 Del Method Room Air 04/02/23 14:00 Data NPU 03/29/23 16:22 03/29/23 16:22 A&P Assessment and plan (1) Bipolar depression: (2) Homicidal ideation: (3) Alcohol dependence: (4) Anxiety disorder, unspecified: (5) Malingering: Plan 47-year-old male with alcohol dependence and reported history of bipolar disorder currently endorsing homicidal ideation, depressed mood and signficant alcohol use. Patient would likely benefit from acute inpatient stay with adjustment in his medications. He would likely benefit from inpatient treatment for alcohol abuse as well. ?1.? ? Engage? patient in individual ,milieu, and group therapy. Continue Latuda at 60mg at night, continue zyprexa zydus 10mg at night. Continue Cymbalta 60mg at night. Will give Vivitrol 380mg IM today. Attempting placement at inpatient treatment substance abuse facility. 2. ? We will attempt to gather collateral information from previous providers ?3. ? TO-15 minute checks on the unit. 4.? Recommend sober living treatment at the highest level of care to which the patient is willing to commit. Involuntary Hold Information 96 Hour Hold: 96 Hour Involuntary Admission: No Attestations NPU Medical Necessity Statement*: Inpatient hospitalization is medically necessary and be clinically appropriate vet at this time.? We will monitor/initiate medications and make changes as indicated.? His likely length of stay 2-3 days. Coding Level of Care Code Acute Code for [facility] Fwd Diagnoses Bipolar depression F31.9 Homicidal ideation R45.850 Alcohol dependence F10.20 Anxiety disorder, unspecified F41.9 Malingering Z76.5
[2023-04-03] MEDS: cetylpyridinium Lozenge 1 EACH MUCOUS MEM (14:46)
--- NOTE | 2023-04-03 15:11 | P.NPUDS_ITS ---
Diagnoses at Discharge Discharge Diagnosis (1) Bipolar depression: Status: Acute (2) Homicidal ideation: Status: Resolved (3) Alcohol dependence: Status: Acute (4) Anxiety disorder, unspecified: Status: Acute (5) Malingering: Status: Acute Reason for Visit Reason for Visit: ETOH AND METH ABUSE, SI AND HI Involuntary Hold Information 96 Hour Hold: 96 Hour Involuntary Admission: No Discharge Data Studies Completed and Pending: Pending at discharge Category Date Time Status Methylmalonic Aci d Routine Lab 04/02/23 15:42 Received Laboratory Results WBC 5.29 10^3/uL (3.2 9-11.43) 03/29/23 16:22 RBC 3.96 10^6/uL (3.8 5-5.65) 03/29/23 16:22 Hgb 14.40 g/dL (11.27 -16.99) 03/29/23 16:22 Hct 44.9 % (37-53) 03/29/23 16:22 MCV 113.4 fl (82-101) H 03/29/23 16:22 MCH 36.4 pg (27-33) H 03/29/23 16:22 MCHC 32.1 g/dL (30-55) 03/29/23 16:22 RDW 13.3 % (12.1-15.1 ) 03/29/23 16:22 Plt Count 287 10^3/cmm (157 -399) 03/29/23 16:22 MPV 9.0 fL (7.4-10.4) 03/29/23 16:22 Neut % (Auto) 60.6 % 03/29/23 16:22 Lymph % (Auto) 34.4 % 03/29/23 16:22 Stearns % (Auto) 3.8 % 03/29/23 16:22 Eos % (Auto) 0.6 % 03/29/23 16:22 Baso % (Auto) 0.4 % 03/29/23 16:22 Neut # (Auto) 3.21 10^3/uL (1.8 -7.7) 03/29/23 16:22 Lymph # (Auto) 1.8 10^3/uL (0.8- 4.8) 03/29/23 16:22 Stearns # (Auto) 0.2 10^3/uL (0.2- 0.9) 03/29/23 16:22 Eos # (Auto) 0.0 10^3/uL (0.0- 0.8) 03/29/23 16:22 Baso # (Auto) 0.0 10^3/uL (0.0- 0.1) 03/29/23 16:22 Nucleated RBC % (a uto) 0 % 03/29/23 16:22 Nucleated RBCs # 0.0 /100WBC 03/29/23 16:22 Sodium 145 mmol/L (136-1 45) 03/29/23 16:22 Potassium 3.7 mmol/L (3.5-5 .1) 03/29/23 16:22 Chloride 108 mmol/L (98-10 7) H 03/29/23 16:22 Carbon Dioxide 24 mmol/L (22-29) 03/29/23 16:22 Anion Gap 16.7 (5-19) 03/29/23 16:22 BUN 12 mg/dL (6-20) 03/29/23 16:22 Creatinine 0.8 mg/dL (0.7-1. 2) 03/29/23 16:22 GFR Calculation 104.1 mL/min (90- 130) 03/29/23 16:22 Glucose 101 mg/dL (65-115 ) 03/29/23 16:22 Calculated Osmolal ity 300 mOsm/kg (285- 295) H 03/29/23 16:22 Calcium 8.7 mg/dL (8.5-10 .5) 03/29/23 16:22 Total Bilirubin 0.2 mg/dL (0.15-1 .2) 03/29/23 16:22 AST 21 U/L (0-40) 03/29/23 16:22 ALT 29 U/L (0-41) 03/29/23 16:22 Alkaline Phosphata se 70 U/L (40-130) 03/29/23 16:22 Total Protein 7.0 g/dL (6.6-8.7 ) 03/29/23 16:22 Albumin 3.9 g/dL (3.5-5.2 ) 03/29/23 16:22 Globulin 3.1 g/dL (1.3-4.6 ) 03/29/23 16:22 Vitamin B12 823 pg/mL (232-12 45) 04/02/23 15:42 Folate > 20.0 ng/mL (4.5 -32.2) 04/02/23 15:42 TSH 0.73 uIU/mL (0.27 -4.20) 03/29/23 16:22 Urine Color Yellow (Yellow) 03/29/23 16:55 Urine Appearance Clear (CLEAR) 03/29/23 16:55 Urine pH 5 (5-7) 03/29/23 16:55 Ur Specific Gravit y 1.015 (1.005-1.0 30) 03/29/23 16:55 Urine Protein Neg (Negative) 03/29/23 16:55 Urine Glucose (UA) Norm (Normal) 03/29/23 16:55 Urine Ketones Negative (Negati ve) 03/29/23 16:55 Urine Blood Neg (Negative) 03/29/23 16:55 Urine Nitrate Negative (Negati ve) 03/29/23 16:55 Urine Bilirubin Neg (Negative) 03/29/23 16:55 Urine Urobilinogen Norm mg/dL (Negat levi) 03/29/23 16:55 Ur Leukocyte Tammy ase Negative (Negati ve) 03/29/23 16:55 Salicylates < 0.3 mg/dL (3-10 ) L 03/29/23 16:22 Urine Opiates Scre en Negative ng/mL (N egative) 03/29/23 16:55 Acetaminophen < 5.0 ug/mL (10-3 0) L 03/29/23 16:22 Ur Barbiturates Sc reen Negative ng/mL (N egative) 03/29/23 16:55 Ur Phencyclidine S crn Negative ng/mL (N egative) 03/29/23 16:55 Ur Amphetamines Sc reen Positive ng/mL (N egative) H 03/29/23 16:55 U Benzodiazepines Scrn Negative ng/mL (N egative) 03/29/23 16:55 Urine Cocaine Scre en Negative ng/mL (N egative) 03/29/23 16:55 U Marijuana (THC) Screen Positive ng/mL (N egative) H 03/29/23 16:55 Ethyl Alcohol 259 mg/dL (0-10) H 03/29/23 16:22 Vitals: Last Vital Signs Temp 97.7 F 04/03/23 06:00 Pulse 72 04/03/23 06:00 Resp 16 04/03/23 06:00 BP 115/71 04/03/23 06:00 Pulse Ox 98 04/03/23 06:00 O2 Del Method Room Air 04/02/23 14:00 Discharge Plan Discharge Patient Disposition: Home Condition: Stable Prescriptions: No Action tamsulosin [Flomax] 0.4 mg Capsule 0.4 mg PO BEDTIME 30 Days Qty: 30 1RF pantoprazole 40 mg tablet,delayed release (DR/EC) 40 mg PO DAILY 30 Days Qty: 30 1RF Seroquel 200 mg tablet 200 mg PO BEDTIME aspirin 81 mg tablet,delayed release (DR/EC) 81 mg PO BID Latuda 60 mg tablet 60 mg PO BEDTIME Depakote 500 mg tablet,delayed release (DR/EC) 500 mg PO BID Cymbalta 60 mg capsule,delayed release(DR/EC) 60 mg PO BID Paxil 20 mg tablet 40 mg PO BEDTIME metoprolol tartrate 25 mg tablet 12.5 mg PO BID Qty: 30 0RF Referrals: [facility] [Other] (Now that you've submitted a referral, what happens next? The [facility] Care Team will get in touch with your referral right away. Over the next few days, we will make multiple attempts to connect with your referral via phone, text, and email. We will be calling from . Once we connect with your referral, we will provide all the necessary information enrolling with [facility], downloading our [facility]ian, and everything else they need to know before their first counseling appointment. Please note that we cannot provide updates on whether someone is enrolled in treatment without a Release of Information (BINDU). If you would like to proceed with an BINDU, we've included a copy here. If you will meet with or see your referral soon, you can coordinate with them to have the form signed. You can return the completed form to [email or web address] ) Chayito Cali MD [Primary Care Provider] - Patient Instructions: Opioid Safety Discharge Attestations NPU Status at Discharge: Cognitive status at discharge: cognitively intact , Behavioral status at discharge: cooperative , Coding Level of Care Code Acute Chg FW DC note Diagnoses Bipolar depression F31.9 Homicidal ideation R45.850 Alcohol dependence F10.20 Anxiety disorder, unspecified F41.9 Malingering Z76.5
[2023-04-03] MEDS: lurasidone 20 mg Tablet 60 MG PO (17:04)
[2023-04-03] MEDS: NON-FORMULARY MEDICATION IM (17:04)
[2023-04-03] MEDS: OLANZapine 5 mg ODT PO (17:04)
[2023-04-03 19:38] VITALS: PULSE 80; RESP 18; TEMP 36.2; O2SAT 96
[2023-04-03] MEDS: OLANZapine 10 mg ODT PO (19:45)
[2023-04-04 06:00] VITALS: BP 115/76; PULSE 84; RESP 17; TEMP 36.5; O2SAT 96
[2023-04-04] MEDS: tamsulosin 0.4 mg Capsule PO (08:50)
[2023-04-04] MEDS: naltrexone hcl 50 mg Tablet PO (08:50)
[2023-04-04] MEDS: multivitamin therapeutic Tablet 1 TAB PO (08:50)
[2023-04-04] MEDS: duloxetine 60 mg Capsule PO (08:51)
[2023-04-04] MEDS: cetylpyridinium Lozenge 1 EACH MUCOUS MEM (08:51)
[2023-04-04] MEDS: folic acid 1 mg Tablet PO (08:51)
[2023-04-04] MEDS: pantoprazole DR 40 mg Tablet PO (08:51)
[2023-04-04] MEDS: nicotine 4 mg lozenge MUCOUS MEM ×2 (08:51→11:15)
[2023-04-04] MEDS: thiamine 100 mg Tablet PO (08:51)
[2023-04-04] MEDS: gabapentin 300 mg Capsule PO (08:51)
[2023-04-04] MEDS: OLANZapine 5 mg ODT PO (08:57)
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
[2023-04-05 09:33] LABS: Methylmalonic Acid 116 nmol/L (87-318)
== END 2023-04-04 13:53 | disposition home or self-care (01) | DRG 885 ==
LOC: ER 18:08 → NP 18:52
PROVIDERS: Admitting Provider Psychiatry & Neurology Psychiatry; Emergency Provider Family Medicine; PCP Family Medicine; Visit Provider Psychiatry & Neurology Psychiatry
DX: F31.9 Bipolar disorder, unspecified (principal); Z59.00 Homelessness unspecified; R45.851 Suicidal ideations; I10 Essential (primary) hypertension; F17.210 Nicotine dependence, cigarettes, uncomplicated; F43.10 Post-traumatic stress disorder, unspecified; Z56.0 Unemployment, unspecified; F41.9 Anxiety disorder, unspecified; Z76.5 Malingerer [conscious simulation]; R45.850 Homicidal ideations; F10.229 Alcohol dependence with intoxication, unspecified; F15.10 Other stimulant abuse, uncomplicated; Y90.8 Blood alcohol level of 240 mg/100 ml or more
CPT/HCPCS: 36415; 80053; 80306; 80307; 81003; 82607; 82746; 83921; 84443; 85025; 96372; 97150; 97165; 99285; J3411; Q0162

== ENCOUNTER 2023-04-18 19:56 | Emergency (ER) | payer MEDICAID, SELFPAY ==
[2023-04-18 19:58] VITALS: BMI 24.3
[2023-04-18 20:07] VITALS: BP 132/107; PULSE 99; RESP 16; TEMP 36.7; O2SAT 99
--- NOTE | 2023-04-18 20:10 | PC.NURSE ---
Patient has been dressed out into NPU/green scrubs. All belongings have been removed from room and put in room 8's drawer.
--- NOTE | 2023-04-18 20:17 | W.ED.PSYCHS ---
HPI - Psych General: Chief Complaint: Psychiatric Symptoms Stated Complaint: SI Time Seen by Provider: 04/18/23 20:06 Source: EMS Mode of arrival: EMS Limitations: no limitations History of Present Illness: 47-year-old male who is very well-known to the ER he states that today his [id number] made him mad and he was going to fight him and states that he feels like killing him. Patient has been seen here many times for this in the past. He is an alcoholic does admit to alcohol abuse today. He denies any worsening proving factors. Associated symptoms: Reports depression and homicidal ideation Review of Systems Const: Denies: fever(s), chills, body aches or change in appetite ENMT: Denies: throat pain or dental pain Card: Denies: chest pain Resp: Denies: dyspnea GI: Denies: abdominal pain, nausea, vomiting or diarrhea : Denies: dysuria Musc: Denies: neck pain or back pain Skin/Breast: Denies: rash Neuro: Denies: headache(s) Psych: Reports: depression and homicidal ideation [facility] ED PFSH: Medical History Adjustment disorder with mixed disturbance of emotions and conduct Alcohol use disorder -Has known history of alcohol abuse&DT Atrial fibrillation Atrial flutter Bipolar 1 disorder, manic, mild Depressive disorder, not elsewhere classified Methamphetamine abuse -UDS positive for amphetamines/THC Surgical History H/O hernia repair History of appendectomy Family History Other Alcoholism /alcohol abuse Social History Quit status (tobacco/nicotine): has tried quititng Number of times tried to quit tobacco: 4 Second hand smoke exposure: Yes Alcohol intake: current Substance/Drug Use: current Current gender identity: Male Physical Exam Const: COMMON NORMALS: no acute distress, patient oriented x3 and healthy appearing HENMT: COMMON NORMALS: normocephalic and atraumatic HEAD & SCALP: normocephalic and atraumatic Eye: COMMON NORMALS: Equal, round and reactive pupils present and EOMs intact bilaterally PUPIL: Yes Equal, round and reactive pupils present Neck/C-Spine: COMMON NORMALS: full ROM and supple Chest: COMMONS NORMALS: normal inspection of the chest and normal palpation of entire chest wall Resp: COMMON NORMALS: normal respiratory effort, No retractions, No use of accessory muscles and clear to auscultation bilaterally AUSCULTATION: clear to auscultation bilaterally Cardio: COMMON NORMALS: regular rate, regular rhythm and No murmurs present (Cardio) RATE: regular rate RHYTHM: regular rhythm GI: COMMON NORMALS: Normal to inspection, nondistended, normoactive bowel sounds present, Soft to palpation, non-tender and no masses PALPATION: Yes Soft to palpation Extremity: COMMON NORMALS: normal to inspection and full ROM Neuro: COMMON NORMALS: patient oriented x3, moves all extremities and no focal motor deficits Psych: COMMON NORMALS: mental status grossly normal, Normal thought process present and cooperative THOUGHT PROCESS: Normal thought process present Skin: COMMON NORMALS: no rashes or lesions noted and no wounds GENERAL SKIN EXAM: no rashes or lesions noted Course Vital Signs: Vital signs: Vital Signs Temperature 98.1 F 04/18/23 20:07 Pulse Rate 99 04/18/23 20:07 Respiratory Rate 16 04/18/23 20:07 Blood Pressure 132/107 04/18/23 20:07 Pulse Oximetry 99 04/18/23 20:07 [facility] - Psych Medical Decision Making Patient presents with homicidal ideations along with alcohol abuse he has been seen here multiple times in the past for same patient was evaluated Dr. Em who knows patient well does not feel like he is an imminent threat to himself or others will discharge she is to follow-up with crisis stabilization unit return if worsening. Medical Records I reviewed the patient's medical records. No radiology studies performed this visit Discharge Plan Discharge Patient Disposition: Home Clinical Impression: Alcohol use disorder, Depression Condition: Stable Prescriptions: No Action trazodone 50 mg Tablet 50 mg PO BEDTIME PRN (Reason: Sleep) 30 Days Qty: 30 1RF tamsulosin 0.4 mg Capsule 0.4 mg PO DAILY 30 Days Qty: 30 1RF pantoprazole 40 mg Tablet,Delayed Release (Dr/Ec) 40 mg PO DAILY 30 Days Qty: 30 1RF gabapentin 300 mg Capsule 300 mg PO TID 30 Days Qty: 90 1RF Vitamin B-1 (mononitrate) 100 mg Tablet 100 mg PO DAILY 30 Days Qty: 30 1RF Latuda 20 mg Tablet 60 mg PO 1800 30 Days Qty: 90 1RF olanzapine 10 mg Tablet,Disintegrating 10 mg PO BEDTIME 30 Days Qty: 30 1RF duloxetine 60 mg Capsule,Delayed Release(Dr/Ec) 60 mg PO DAILY 30 Days Qty: 30 1RF Vivitrol 380 mg suspension,extended rel recon 380 mg IM ONCE 30 Days Qty: 1 1RF Rx Instructions: Next injection 05/03/23 Discharge Orders: Discharge ED (Routine); Ordered 04/18/23 Ordered By: Fransisco Berry Referrals: Chayito Cali MD [Primary Care Provider] - Discharge Diet: Advance as tolerated Discharge Activity: Resume usual activity Patient Instructions: Abuse of Alcohol (ED) Coding Level of Care Code ED Russian Language Professor for Camila Alvares
--- NOTE | 2023-04-18 21:13 | PC.NURSE ---
Patient was discharged and given back all belongings, including clothes. This nurse instructed patient to dress back into regular clothes so he could be discharged. Patient agreed and stated that he would, and then asked for a sandwich and a soda. Nurse brought patient food and found patient had made no attempts to dress himself. Nurse once again asked patient to get dressed. Patient told nurse, Yes, I will. Just give me a minute. Nurse waited several minutes and rounded back on patient, who had closed the door and drawn the curtain. Nurse found patient still eating and nurse once again asked patient to get dressed. Patient stated, I will. I'm eating right now. Nurse called security chief museum Óscar and informed him of the patient's reluctance to leave facility. Nurse came back to find patient yelling in his room, Fuck this place and fuck all of you guys. You guys don't give a fuck about me. Nurse asked patient to please get dressed, to which the patient stated, Can you get the fuck out of my room? I'm doing it, I'm getting dressed! front desk officer Óscar arrived to patient's room and instructed patient to leave the facility. Patient began yelling again but did get dressed. Security escorted patient out of facility without any further complications; patient left with all paperwork and belongings.
== END 2023-04-18 21:10 | disposition home or self-care (01) ==
PROVIDERS: Emergency Provider Emergency Medicine; PCP Family Medicine
DX: F32.A Depression, unspecified (principal); F10.90 Alcohol use, unspecified, uncomplicated; Z77.22 Contact with and (suspected) exposure to environmental tobacco smoke (acute) (chronic)
CPT/HCPCS: 99283

== ENCOUNTER 2023-04-19 02:45 | Emergency (ER) | payer MEDICAID, SELFPAY ==
[2023-04-19 02:51] VITALS: BP 129/88; RESP 16; TEMP 36.6
--- NOTE | 2023-04-19 02:55 | W.ED.ALCOHOL ---
HPI - Alcohol General: Chief Complaint: Alcohol Stated Complaint: ETOH Time Seen by Provider: 04/19/23 02:47 Source: patient Mode of arrival: ambulatory Limitations: no limitations History of Present Illness: 47-year-old male who is very well-known to the ER seen here earlier in the night due to homicidal thoughts he is medically cleared he did walk to [facility] and states that he has been drinking heavily the police were called and he was brought here as he is too intoxicated to take to [place] patient is quite intoxicated he is awake and alert able to speak to me he is not able to ambulate at this time he denies SI or HI Associated symptoms: Deny abdominal pain, nausea or vomiting Review of Systems Const: Denies: fever(s), chills, body aches or change in appetite ENMT: Denies: throat pain or dental pain Card: Denies: chest pain Resp: Denies: dyspnea GI: Denies: abdominal pain, nausea, vomiting or diarrhea : Denies: dysuria Musc: Denies: neck pain or back pain Skin/Breast: Denies: rash Neuro: Denies: headache(s) PFSH ED PFSH: Medical History Adjustment disorder with mixed disturbance of emotions and conduct Alcohol use disorder -Has known history of alcohol abuse&DT Atrial fibrillation Atrial flutter Bipolar 1 disorder, manic, mild Depressive disorder, not elsewhere classified Methamphetamine abuse -UDS positive for amphetamines/THC Surgical History H/O hernia repair History of appendectomy Family History Other Alcoholism /alcohol abuse Social History Quit status (tobacco/nicotine): has tried quititng Number of times tried to quit tobacco: 4 Second hand smoke exposure: Yes Alcohol intake: current Substance/Drug Use: current Current gender identity: Male Physical Exam Const: COMMON NORMALS: no acute distress, patient oriented x3 and healthy appearing OTHER: intoxicated HENMT: COMMON NORMALS: normocephalic and atraumatic HEAD & SCALP: normocephalic and atraumatic Eye: COMMON NORMALS: Equal, round and reactive pupils present and EOMs intact bilaterally PUPIL: Yes Equal, round and reactive pupils present Neck/C-Spine: COMMON NORMALS: full ROM and supple Chest: COMMONS NORMALS: normal inspection of the chest and normal palpation of entire chest wall Resp: COMMON NORMALS: normal respiratory effort, No retractions, No use of accessory muscles and clear to auscultation bilaterally AUSCULTATION: clear to auscultation bilaterally Cardio: COMMON NORMALS: regular rate, regular rhythm and No murmurs present (Cardio) RATE: regular rate RHYTHM: regular rhythm GI: COMMON NORMALS: Normal to inspection, nondistended, normoactive bowel sounds present, Soft to palpation, non-tender and no masses PALPATION: Yes Soft to palpation Extremity: COMMON NORMALS: normal to inspection and full ROM Neuro: COMMON NORMALS: patient oriented x3, moves all extremities and no focal motor deficits Psych: COMMON NORMALS: mental status grossly normal, Normal thought process present and cooperative THOUGHT PROCESS: Normal thought process present Skin: COMMON NORMALS: no rashes or lesions noted and no wounds GENERAL SKIN EXAM: no rashes or lesions noted Course Vital Signs: Vital signs: Vital Signs Temperature 97.9 F 04/19/23 02:51 Pulse Rate 87 04/19/23 04:16 Respiratory Rate 16 04/19/23 02:51 Blood Pressure 129/88 04/19/23 02:51 Pulse Oximetry 96 04/19/23 04:16 MDM - Alcohol Medical Decision Making Patient presents here with alcohol intoxication once patient is clinically sober will discharge he has no suicidal or homicidal thoughts he is very well-known to the ER and has chronic alcoholism. Medical Records I reviewed the patient's medical records. No radiology studies performed this visit Discharge Plan Discharge Patient Disposition: Home Clinical Impression: Alcoholic intoxication Condition: Stable Prescriptions: No Action trazodone 50 mg Tablet 50 mg PO BEDTIME PRN (Reason: Sleep) 30 Days Qty: 30 1RF tamsulosin 0.4 mg Capsule 0.4 mg PO DAILY 30 Days Qty: 30 1RF pantoprazole 40 mg Tablet,Delayed Release (Dr/Ec) 40 mg PO DAILY 30 Days Qty: 30 1RF gabapentin 300 mg Capsule 300 mg PO TID 30 Days Qty: 90 1RF Vitamin B-1 (mononitrate) 100 mg Tablet 100 mg PO DAILY 30 Days Qty: 30 1RF Latuda 20 mg Tablet 60 mg PO 1800 30 Days Qty: 90 1RF olanzapine 10 mg Tablet,Disintegrating 10 mg PO BEDTIME 30 Days Qty: 30 1RF duloxetine 60 mg Capsule,Delayed Release(Dr/Ec) 60 mg PO DAILY 30 Days Qty: 30 1RF Vivitrol 380 mg suspension,extended rel recon 380 mg IM ONCE 30 Days Qty: 1 1RF Rx Instructions: Next injection 05/03/23 Discharge Orders: Discharge ED (Routine); Ordered 04/19/23 Ordered By: Fransisco Berry Referrals: Chayito Cali MD [Primary Care Provider] - 1-3 days Discharge Diet: Advance as tolerated Discharge Activity: Resume usual activity Patient Instructions: Alcohol Intoxication (ED) Coding Level of Care Code ED Construction Technician for Camila Alvares
[2023-04-19 04:16] VITALS: PULSE 87; O2SAT 96
== END 2023-04-19 06:16 | disposition home or self-care (01) ==
PROVIDERS: Emergency Provider Emergency Medicine; PCP Family Medicine
DX: F10.129 Alcohol abuse with intoxication, unspecified (principal); Y90.9 Presence of alcohol in blood, level not specified; Z87.891 Personal history of nicotine dependence
CPT/HCPCS: 99283

== ENCOUNTER 2023-06-04 03:44 | Emergency (ER) | payer MEDICAID, SELFPAY ==
[2023-06-04 03:44] VITALS: BP 138/117; PULSE 101; RESP 16; TEMP 37; O2SAT 95; BMI 23.5
--- NOTE | 2023-06-04 03:45 | W.ED.PSYCHS ---
HPI - Psych General: Chief Complaint: Psychiatric Symptoms Stated Complaint: HI Time Seen by Provider: 06/04/23 03:45 Source: patient and EMS Mode of arrival: EMS Limitations: no limitations History of Present Illness: 47-year-old male who is very well-known to the ER he has been drinking tonight and got an argument his states he is having thoughts of harming other people. He denies any SI patient's been seen here multiple times in the past for the same he denies any worsening improving factors. Review of Systems Const: Denies: fever(s), chills, body aches or change in appetite ENMT: Denies: throat pain or dental pain Card: Denies: chest pain Resp: Denies: dyspnea GI: Denies: abdominal pain, nausea, vomiting or diarrhea Musc: Denies: neck pain or back pain Skin/Breast: Denies: rash Neuro: Denies: headache(s) PFS ED PFSH: Medical History Atrial flutter Atrial fibrillation Methamphetamine abuse -UDS positive for amphetamines/THC Bipolar 1 disorder, manic, mild Depressive disorder, not elsewhere classified Adjustment disorder with mixed disturbance of emotions and conduct Alcohol use disorder -Has known history of alcohol abuse&DT Surgical History H/O hernia repair History of appendectomy Family History Other Alcoholism /alcohol abuse Social History Quit status (tobacco/nicotine): has tried quititng Number of times tried to quit tobacco: 4 Second hand smoke exposure: Yes Alcohol intake: current Substance/Drug Use: current Current gender identity: Male Physical Exam Const: COMMON NORMALS: no acute distress, patient oriented x3 and healthy appearing HENMT: COMMON NORMALS: normocephalic and atraumatic HEAD & SCALP: normocephalic and atraumatic Eye: COMMON NORMALS: Equal, round and reactive pupils present and EOMs intact bilaterally PUPIL: Yes Equal, round and reactive pupils present Neck/C-Spine: COMMON NORMALS: full ROM and supple Chest: COMMONS NORMALS: normal inspection of the chest and normal palpation of entire chest wall Resp: COMMON NORMALS: normal respiratory effort, No retractions, No use of accessory muscles and clear to auscultation bilaterally AUSCULTATION: clear to auscultation bilaterally Cardio: COMMON NORMALS: regular rate, regular rhythm and No murmurs present (Cardio) RATE: regular rate RHYTHM: regular rhythm GI: COMMON NORMALS: Normal to inspection, nondistended, normoactive bowel sounds present, Soft to palpation, non-tender and no masses PALPATION: Yes Soft to palpation Extremity: COMMON NORMALS: normal to inspection and full ROM Neuro: COMMON NORMALS: patient oriented x3, moves all extremities and no focal motor deficits Psych: COMMON NORMALS: mental status grossly normal, Normal thought process present and cooperative THOUGHT PROCESS: Normal thought process present THOUGHT CONTENT: No Suicidality present Skin: COMMON NORMALS: no rashes or lesions noted and no wounds GENERAL SKIN EXAM: no rashes or lesions noted Course Vital Signs: Vital signs: Vital Signs Temperature 98.6 F 06/04/23 03:44 Pulse Rate 101 H 06/04/23 03:44 Respiratory Rate 16 06/04/23 03:44 Blood Pressure 138/117 06/04/23 03:44 Pulse Oximetry 95 06/04/23 03:44 Oxygen Delivery Me thod Room Air 06/04/23 03:44 MDM - Psych Medical Decision Making Patient presents here with alcohol intoxication I spoke to Dr. Em who knows patient very well he has a long history of malingering I do not believe he is truly suicidal or homicidal he is stable for discharge follow-up with PCP return if worsening. Medical Records I reviewed the patient's medical records. No radiology studies performed this visit Discharge Plan Discharge Patient Disposition: Home Clinical Impression: Methamphetamine abuse, Alcohol abuse Prescriptions: No Action trazodone 50 mg Tablet 50 mg PO BEDTIME PRN (Reason: Sleep) 30 Days Qty: 30 1RF tamsulosin 0.4 mg Capsule 0.4 mg PO DAILY 30 Days Qty: 30 1RF pantoprazole 40 mg Tablet,Delayed Release (Dr/Ec) 40 mg PO DAILY 30 Days Qty: 30 1RF gabapentin 300 mg Capsule 300 mg PO TID 30 Days Qty: 90 1RF Vitamin B-1 (mononitrate) 100 mg Tablet 100 mg PO DAILY 30 Days Qty: 30 1RF Latuda 20 mg Tablet 60 mg PO 1800 30 Days Qty: 90 1RF olanzapine 10 mg Tablet,Disintegrating 10 mg PO BEDTIME 30 Days Qty: 30 1RF duloxetine 60 mg Capsule,Delayed Release(Dr/Ec) 60 mg PO DAILY 30 Days Qty: 30 1RF Vivitrol 380 mg suspension,extended rel recon 380 mg IM ONCE 30 Days Qty: 1 1RF Rx Instructions: Next injection 05/03/23 Discharge Orders: Discharge ED (Routine); Ordered 06/04/23 Ordered By: Fransisco Berry Referrals: Chayito Cali MD [Primary Care Provider] - 1-3 days Discharge Diet: Advance as tolerated Discharge Activity: Resume usual activity Patient Instructions: Abuse of Alcohol (DC) Coding Level of Care Code ED Home Theatre Technician for Camila Alvares
== END 2023-06-04 05:31 | disposition home or self-care (01) ==
PROVIDERS: Emergency Provider Emergency Medicine; PCP Family Medicine
DX: F15.10 Other stimulant abuse, uncomplicated (principal); F10.10 Alcohol abuse, uncomplicated; Z87.891 Personal history of nicotine dependence
CPT/HCPCS: 99283

== ENCOUNTER 2023-06-08 23:51 | Emergency (ER) | payer MEDICAID, SELFPAY ==
[2023-06-08 23:52] VITALS: BP 146/95; PULSE 62; RESP 20; TEMP 36.3; BMI 25.0
--- NOTE | 2023-06-09 00:10 | XRR_ITS ---
PROCEDURE INFORMATION: Exam: XR Chest Exam date and time: 06/09/2023 12:25 AM Age: 47 years old Clinical indication: Cough TECHNIQUE: Imaging protocol: Radiologic exam of the chest. Views: 1 view. COMPARISON: CR XR chest 1V portable [id number] 03/23/2023 6:05 PM FINDINGS: Lungs: Unremarkable. No consolidation. Pleural spaces: Unremarkable. No pleural effusion. No pneumothorax. Heart/Mediastinum: Unremarkable. No cardiomegaly. Bones/joints: Unremarkable. XR/XR chest 1V portable [id number] IMPRESSION: No acute findings.
--- NOTE | 2023-06-09 00:12 | ECG_ITS ---
[facility] Test Date: 2023-06-09 Pat Name: Ludin Gordon Department: Room: Gender: Male Hand Grinder: : 1975 Requested By: Pete Galdamez Order Number: [id number] Jaime MD: Leon Mancuso M.D. Measurements Intervals [place] Rate: 104 P: 65 UT: 147 QRS: 80 QRSD: 82 T: 80 QT: 318 QTc: 419 Interpretive Statements SINUS TACHYCARDIA Compared to ECG 02/01/2023 16:31:03 Sinus rhythm no longer present Electronically Signed On 06-09-2023 16:23:42 FACILITY EXAMINER by Leon Mancuso M.D. [email or web address]
[2023-06-09 00:32] LABS: Basophils % 0.4 %; Eosinophils # 0.1 10^3/uL (0.0-0.8); Eosinophils % 1.8 %; Hematocrit 46.4 % (37-53); Lymphocytes # 2.2 10^3/uL (0.8-4.8); Mean Corpuscular HGB Conc 33.8 g/dL (30-55); Mean Corpuscular Hemoglobin 36.8 pg (27-33); Mean Corpuscular Volume 108.7 fl (82-101); Monocytes # 0.7 10^3/uL (0.2-0.9); Neutrophils # 4.59 10^3/uL (1.8-7.7); Neutrophils % 59.7 %; Nucleated Red Blood Cells % 0 %; Platelet Count 277 10^3/cmm (157-399); Red Blood Count 4.27 10^6/uL (3.85-5.65); Red Cell Distribution Width 13.4 % (12.1-15.1); White Blood Count 7.69 10^3/uL (3.29-11.43)
[2023-06-09] MEDS: LORazepam 2 mg/mL INJ 10 mL MDV 1 MG IM (00:53)
[2023-06-09] MEDS: ziprasidone 20 mg/mL SDV IM (00:53)
[2023-06-09] MEDS: water for injection-sterile 10 ML 1.2 ML (00:54)
--- NOTE | 2023-06-09 01:02 | ED.C_ITS ---
Documented by User: Pete Galdamez DO Kaz 06/09/23 18:48 HPI - Psych 2 General: Chief Complaint: Psychiatric Symptoms Stated Complaint: MHE, ETOH Time Seen by Provider: 06/08/23 23:54 History of Present Illness: 47-year-old male well-known to the emerg ency department service. He presents hearing voices. He points to a corner of the room at the ceiling, saying, I am not mad at you guys, I am mad at him. I am going to crawl up there and get him. He needs to shut up. He tells me that he does not wish to hurt himself, or any of my staff, but that he definitely wants to hurt whoever is responsible for the voices he is hearing. He is admits to being off his medication. He had alcohol to drink tonight. Review of Systems 2 Const: Denies: fever(s) ENMT: Denies: throat pain Card: Denies: chest pain Resp: Denies: dyspnea PFSH ED 2 PFSH: Medical History Atrial flutter Atrial fibrillation Methamphetamine abuse -UDS positive for amphetamines/THC Bipolar 1 disorder, manic, mild Depressive disorder, not elsewhere classified Adjustment disorder with mixed disturbance of emotions and conduct Alcohol use disorder -Has known history of alcohol abuse&DT Surgical History H/O hernia repair History of appendectomy Family History Other Alcoholism /alcohol abuse Social History Quit status (tobacco/nicotine): has tried quititng Number of times tried to quit tobacco: 4 Second hand smoke exposure: Yes Alcohol intake: current Substance/Drug Use: current Current gender identity: Male Physical Exam 2 Const: GENERAL APPEARANCE: cooperative, disheveled, appears older than stated age and odor of alcohol detected; not ill appearing and not frail appearing HENMT: COMMON NORMALS: normocephalic, atraumatic and Normal external nose present HEAD & SCALP: normocephalic and atraumatic FACE & SINUS: normal facial exam and face symmetric NOSE: Normal external nose present Eye: COMMON NORMALS: Equal, round and reactive pupils present and EOMs intact bilaterally PUPIL: Yes Equal, round and reactive pupils present Neck/C-Spine: GENERAL: Yes trachea midline Chest: CHEST: Yes Symmetrical chest wall rise Resp: COMMON NORMALS: normal respiratory effort, No retractions, No use of accessory muscles and clear to auscultation bilaterally AUSCULTATION: clear to auscultation bilaterally Cardio: COMMON NORMALS: regular rate and regular rhythm RATE: regular rate RHYTHM: regular rhythm GI: COMMON NORMALS: Normal to inspection, nondistended, normoactive bowel sounds present Extremity: COMMON NORMALS: no pedal edema Neuro: JOSÉ MIGUEL COMA SCALE: document GCS findings [place] coma scale eye opening: Spontaneous [place] coma scale verbal response: Orientated José Miguel coma scale motor response: Obey commands José Miguel coma scale total score: 15 S ENSORY EXAM: Yes extremities (intact) Psych: COMMON NORMALS: speech normal ACTIVITY/MOTOR BEHAVIOR: Yes psychomotor agitation SPEECH: Yes normal speech THOUGHT PROCESS: C ircumstantial thought process present, disorganized and Flight of ideas present THOUGHT CONTENT: Yes Hallucination(s) present auditory and visual Skin: COMMON NORMALS: no rashes or lesions noted GENERAL SKIN EXAM: no rashes or lesions noted Course 2 Vital Signs: Vital signs: Vital Signs Temperature 97.4 F L 06/08/23 23:52 Pulse Rate 89 06/09/23 07:38 Respiratory Rate 16 06/09/23 07:38 Blood Pressure 117/77 06/09/23 07:38 Pulse Oximetry 95 06/09/23 07:38 Oxygen Delivery Me thod Room Air 06/09/23 07:38 MDM - Psych Medical Decision Making 47-year-old male well-known to the emergency department service. He is actively hallucinating both auditory and visual. He began to get agitated, and try to strike the wall where he believes that this hallucination to be. Because of this, he was given Geodon and Ativan. Following, he rested comfortably. He was never aggressive towards staff. His workup is essentially normal save being positive for marijuana and an alcohol level of 171. Because of active psychosis, agitation and hallucinations, psychiatry was consulted. They will see him in the ER. Medically, he is stable. Psychiatry has seen the patient. He is deemed stable for discharge at this point. Lab Data 06/09/23 00:24 06/09/23 00:24 Radiology Impressions Chest X-Ray 06/09/23 00:10 IMPRESSION: No acute findings. Laboratory Results WBC 7.69 10^3/uL (3.29-11.43) 06/09/23 00:24 RBC 4.27 10^6/uL (3.85-5.65) 06/09/23 00:24 Hgb 15.70 g/dL (11.27-16.99) 06/09/23 00:24 Hct 46.4 % (37-53) 06/09/23 00:24 MCV 108.7 fl (82-101) H 06/09/23 00:24 MCH 36.8 pg (27-33) H 06/09/23 00:24 MCHC 33.8 g/dL (30-55) 06/09/23 00:24 RDW 13.4 % (12.1-15.1) 06/09/23 00:24 Plt Count 277 10^3/cmm (157-399) 06/09/23 00:24 MPV 9.0 fL (7.4-10.4) 06/09/23 00:24 Neut % (Auto) 59.7 % 06/09/23 00:24 Lymph % (Auto) 29.0 % 06/09/23 00:24 [place] % (Auto) 9.0 % 06/09/23 00:24 Eos % (Auto) 1.8 % 06/09/23 00:24 Baso % (Auto) 0.4 % 06/09/23 00:24 Neut # (Auto) 4.59 10^3/uL (1.8-7.7) 06/09/23 00:24 Lymph # (Auto) 2.2 10^3/uL (0.8-4.8) 06/09/23 00:24 [place] # (Auto) 0.7 10^3/uL (0.2-0.9) 06/09/23 00:24 Eos # (Auto) 0.1 10^3/uL (0.0-0.8) 06/09/23 00:24 Baso # (Auto) 0.0 10^3/uL (0.0-0.1) 06/09/23 00:24 Nucleated RBC % (auto) 0 % 06/09/23 00:24 Nucleated RBCs # 0.0 /100WBC 06/09/23 00:24 Sodium 137 mmol/L (136-145) 06/09/23 00:24 Potassium 4.3 mmol/L (3.5-5.1) 06/09/23 00:24 Chloride 102 mmol/L (98-107) 06/09/23 00:24 Carbon Dioxide 21 mmol/L (22-29) L 06/09/23 00:24 Anion Gap 18.3 (5-19) 06/09/23 00:24 BUN 17 mg/dL (6-20) 06/09/23 00:24 Creatinine 0.7 mg/dL (0.7-1.2) 06/09/23 00:24 GFR Calculation 121.4 mL/min (90-130) 06/09/23 00:24 Glucose 86 mg/dL (65-115) 06/09/23 00:24 Calculated Osmolality 285 mOsm/kg (285-295) 06/09/23 00:24 Calcium 8.6 mg/dL (8.5-10.5) 06/09/23 00:24 Total Bilirubin 0.2 mg/dL (0.15-1.2) 06/09/23 00:24 AST 18 U/L (0-40) 06/09/23 00:24 ALT 18 U/L (0-41) 06/09/23 00:24 Alkaline Phosphatase 91 U/L (40-130) 06/09/23 00:24 Total Protein 7.4 g/dL (6.6-8.7) 06/09/23 00:24 Albumin 4.0 g/dL (3.5-5.2) 06/09/23 00:24 Globulin 3.4 g/dL (1.3-4.6) 06/09/23 00:24 Urine Color Colorless (Yellow) 06/09/23 01:46 Urine Appearance Clear (CLEAR) 06/09/23 01:46 Urine pH 6.5 (5-7) 06/09/23 01:46 Ur Specific [place] 1.005 (1.005-1.030) 06/09/23 01:46 Urine Protein Neg (Negative) 06/09/23 01:46 Urine Glucose (UA) Norm (Normal) 06/09/23 01:46 Urine Ketones Negative (Negative) 06/09/23 01:46 Urine Blood Neg (Negative) 06/09/23 01:46 Urine Nitrate Negative (Negative) 06/09/23 01:46 Urine Bilirubin Neg (Negative) 06/09/23 01:46 Urine Urobilinogen Norm mg/dL (Negative) 06/09/23 01:46 Ur Leukocyte Esterase Negative (Negative) 06/09/23 01:46 Salicylates < 0.3 mg/dL (3-10) L 06/09/23 00:24 Urine Opiates Screen Negative ng/mL (Negative) 06/09/23 01:46 Acetaminophen < 5.0 ug/mL (10-30) L 06/09/23 00:24 Ur Barbiturates Screen Negative ng/mL (Negative) 06/09/23 01:46 Ur Phencyclidine Scrn Negative ng/mL (Negative) 06/09/23 01:46 Ur Amphetamines Screen Negative ng/mL (Negative) 06/09/23 01:46 U Benzodiazepines Scrn Negative ng/mL (Negative) 06/09/23 01:46 Urine Cocaine Screen Negative ng/mL (Negative) 06/09/23 01:46 U Marijuana (THC) Screen Positive ng/mL (Negative) H 06/09/23 01:46 Ethyl Alcohol 171 mg/dL (0-10) H 06/09/23 00:24 No radiology studies performed this visit Discharge Plan Discharge Patient Disposition: Home Clinical Impression: Alcohol use disorder Drug-induced psychotic disorder Qualifiers: Complication of substance-induced condition: with hallucinations Qualified Code(s): F19.951 - Other psychoactive substance use, unspecified with psychoactive substance-induced psychotic disorder with hallucinations Condition: Stable Prescriptions: No Action trazodone 50 mg Tablet 50 mg PO BEDTIME PRN (Reason: Sleep) 30 Days Qty: 30 1RF tamsulosin 0.4 mg Capsule 0.4 mg PO DAILY 30 Days Qty: 30 1RF pantoprazole 40 mg Tablet,Delayed Release (Dr/Ec) 40 mg PO DAILY 30 Days Qty: 30 1RF gabapentin 300 mg Capsule 300 mg PO TID 30 Days Qty: 90 1RF thiamine mononitrate (vit B1) [Vitamin B-1 (mononitrate)] 100 mg Tablet 100 mg PO DAILY 30 Days Qty: 30 1RF olanzapine 10 mg Tablet,Disintegrating 10 mg PO BEDTIME 30 Days Qty: 30 1RF duloxetine 60 mg Capsule,Delayed Release(Dr/Ec) 60 mg PO DAILY 30 Days Qty: 30 1RF Tussin DM 10-100 mg/5 mL syrup 5 ml PO Q6H PRN (Reason: Cough) fluticasone propionate 50 mcg/actuation spray,suspension 2 spray INTRANASAL DAILY lurasidone 60 mg tablet 60 mg PO DAILY@18 Discharge Orders: Discharge ED (Routine); Ordered 06/09/23 Ordered By: Haroon Larsen Referrals: Chayito Cali MD [Primary Care Provider] - Discharge Diet: Advance as tolerated Discharge Activity: Resume usual activity Patient Instructions: Alcohol Intoxication (ED), Psychotic Disorder (ED), Opioid Safety, Pain Management Activity Restrictions/Additional Instructions: Follow-up with the crisis behavioral center as advised by Dr. Em. Coding Level of Care Code ED In Class Special Education Teacher for Chg Fwd Documented by User: Haroon Larsen MD 06/12/23 03:58 HPI - Psych 2 General: Chief Complaint: Psychiatric Symptoms Stated Complaint: MHE, ETOH Time Seen by Provider: 06/08/23 23:54 PFSH ED 2 PFSH: Medical History Atrial flutter Atrial fibrillation Methamphetamine abuse -UDS positive for amphetamines/THC Bipolar 1 disorder, manic, mild Depressive disorder, not elsewhere classified Adjustment disorder with mixed disturbance of emotions and conduct Alcohol use disorder -Has known history of alcohol abuse&DT Surgical History H/O hernia repair History of appendectomy Family History Other Alcoholism /alcohol abuse Social History Quit status (tobacco/nicotine): has tried quititng Number of times tried to quit tobacco: 4 Second hand smoke exposure: Yes Alcohol intake: current Substance/Drug Use: current Current gender identity: Male Physical Exam 2 Neuro: JOSÉ MIGUEL COMA SCALE: document GCS findings [place] coma scale total score: 15 Course 2 ED course: Dr. Em did come and see the patient here in the emergency department and advised discharge with [facility] follow-up and schedule follow-up as discussed with the patient. Vital Signs: Vital signs: Vital Signs Temperature 97.4 F L 06/08/23 23:52 Pulse Rate 89 06/09/23 07:38 Respiratory Rate 16 06/09/23 07:38 Blood Pressure 117/77 06/09/23 07:38 Pulse Oximetry 95 06/09/23 07:38 Oxygen Delivery Me thod Room Air 06/09/23 07:38 MDM - Psych Medical Records I reviewed the patient's medical records. Lab Data I reviewed the patient's lab results. 06/09/23 00:24 06/09/23 00:24 Radiology Impressions Chest X-Ray 06/09/23 00:10 IMPRESSION: No acute findings. Laboratory Results WBC 7.69 10^3/uL (3.29-11.43) 06/09/23 00:24 RBC 4.27 10^6/uL (3.85-5.65) 06/09/23 00:24 Hgb 15.70 g/dL (11.27-16.99) 06/09/23 00:24 Hct 46.4 % (37-53) 06/09/23 00:24 MCV 108.7 fl (82-101) H 06/09/23 00:24 MCH 36.8 pg (27-33) H 06/09/23 00:24 MCHC 33.8 g/dL (30-55) 06/09/23 00:24 RDW 13.4 % (12.1-15.1) 06/09/23 00:24 Plt Count 277 10^3/cmm (157-399) 06/09/23 00:24 MPV 9.0 fL (7.4-10.4) 06/09/23 00:24 Neut % (Auto) 59.7 % 06/09/23 00:24 Lymph % (Auto) 29.0 % 06/09/23 00:24 [place] % (Auto) 9.0 % 06/09/23 00:24 Eos % (Auto) 1.8 % 06/09/23 00:24 Baso % (Auto) 0.4 % 06/09/23 00:24 Neut # (Auto) 4.59 10^3/uL (1.8-7.7) 06/09/23 00:24 Lymph # (Auto) 2.2 10^3/uL (0.8-4.8) 06/09/23 00:24 [place] # (Auto) 0.7 10^3/uL (0.2-0.9) 06/09/23 00:24 Eos # (Auto) 0.1 10^3/uL (0.0-0.8) 06/09/23 00:24 Baso # (Auto) 0.0 10^3/uL (0.0-0.1) 06/09/23 00:24 Nucleated RBC % (auto) 0 % 06/09/23 00:24 Nucleated RBCs # 0.0 /100WBC 06/09/23 00:24 Sodium 137 mmol/L (136-145) 06/09/23 00:24 Potassium 4.3 mmol/L (3.5-5.1) 06/09/23 00:24 Chloride 102 mmol/L (98-107) 06/09/23 00:24 Carbon Dioxide 21 mmol/L (22-29) L 06/09/23 00:24 Anion Gap 18.3 (5-19) 06/09/23 00:24 BUN 17 mg/dL (6-20) 06/09/23 00:24 Creatinine 0.7 mg/dL (0.7-1.2) 06/09/23 00:24 GFR Calculation 121.4 mL/min (90-130) 06/09/23 00:24 Glucose 86 mg/dL (65-115) 06/09/23 00:24 Calculated Osmolality 285 mOsm/kg (285-295) 06/09/23 00:24 Calcium 8.6 mg/dL (8.5-10.5) 06/09/23 00:24 Total Bilirubin 0.2 mg/dL (0.15-1.2) 06/09/23 00:24 AST 18 U/L (0-40) 06/09/23 00:24 ALT 18 U/L (0-41) 06/09/23 00:24 Alkaline Phosphatase 91 U/L (40-130) 06/09/23 00:24 Total Protein 7.4 g/dL (6.6-8.7) 06/09/23 00:24 Albumin 4.0 g/dL (3.5-5.2) 06/09/23 00:24 Globulin 3.4 g/dL (1.3-4.6) 06/09/23 00:24 Urine Color Colorless (Yellow) 06/09/23 01:46 Urine Appearance Clear (CLEAR) 06/09/23 01:46 Urine pH 6.5 (5-7) 06/09/23 01:46 Ur Specific [place] 1.005 (1.005-1.030) 06/09/23 01:46 Urine Protein Neg (Negative) 06/09/23 01:46 Urine Glucose (UA) Norm (Normal) 06/09/23 01:46 Urine Ketones Negative (Negative) 06/09/23 01:46 Urine Blood Neg (Negative) 06/09/23 01:46 Urine Nitrate Negative (Negative) 06/09/23 01:46 Urine Bilirubin Neg (Negative) 06/09/23 01:46 Urine Urobilinogen Norm mg/dL (Negative) 06/09/23 01:46 Ur Leukocyte Esterase Negative (Negative) 06/09/23 01:46 Salicylates < 0.3 mg/dL (3-10) L 06/09/23 00:24 Urine Opiates Screen Negative ng/mL (Negative) 06/09/23 01:46 Acetaminophen < 5.0 ug/mL (10-30) L 06/09/23 00:24 Ur Barbiturates Screen Negative ng/mL (Negative) 06/09/23 01:46 Ur Phencyclidine Scrn Negative ng/mL (Negative) 06/09/23 01:46 Ur Amphetamines Screen Negative ng/mL (Negative) 06/09/23 01:46 U Benzodiazepines Scrn Negative ng/mL (Negative) 06/09/23 01:46 Urine Cocaine Screen Negative ng/mL (Negative) 06/09/23 01:46 U Marijuana (THC) Screen Positive ng/mL (Negative) H 06/09/23 01:46 Ethyl Alcohol 171 mg/dL (0-10) H 06/09/23 00:24 Discharge Plan Discharge Patient Disposition: Home Clinical Impression: Alcohol use disorder Drug-induced psychotic disorder Qualifiers: Complication of substance-induced condition: with hallucinations Qualified Code(s): F19.951 - Other psychoactive substance use, unspecified with psychoactive substance-induced psychotic disorder with hallucinations Condition: Stable Prescriptions: No Action trazodone 50 mg Tablet 50 mg PO BEDTIME PRN (Reason: Sleep) 30 Days Qty: 30 1RF tamsulosin 0.4 mg Capsule 0.4 mg PO DAILY 30 Days Qty: 30 1RF pantoprazole 40 mg Tablet,Delayed Release (Dr/Ec) 40 mg PO DAILY 30 Days Qty: 30 1RF gabapentin 300 mg Capsule 300 mg PO TID 30 Days Qty: 90 1RF thiamine mononitrate (vit B1) [Vitamin B-1 (mononitrate)] 100 mg Tablet 100 mg PO DAILY 30 Days Qty: 30 1RF olanzapine 10 mg Tablet,Disintegrating 10 mg PO BEDTIME 30 Days Qty: 30 1RF duloxetine 60 mg Capsule,Delayed Release(Dr/Ec) 60 mg PO DAILY 30 Days Qty: 30 1RF Tussin DM 10-100 mg/5 mL syrup 5 ml PO Q6H PRN (Reason: Cough) fluticasone propionate 50 mcg/actuation spray,suspension 2 spray INTRANASAL DAILY lurasidone 60 mg tablet 60 mg PO DAILY@18 Discharge Orders: Discharge ED (Routine); Ordered 06/09/23 Ordered By: Haroon Larsen Referrals: Chayito Cali MD [Primary Care Provider] - Discharge Diet: Advance as tolerated Discharge Activity: Resume usual activity Patient Instructions: Alcohol Intoxication (ED), Psychotic Disorder (ED), Opioid Safety, Pain Management Activity Restrictions/Additional Instructions: Follow-up with the crisis behavioral center as advised by Dr. Em. Coding Level of Care Code ED In Class Special Education Teacher for Camila Alvares
[2023-06-09 01:30] LABS: Alanine Aminotransferase 18 U/L (0-41); Alcohol Level 171 mg/dL (0-10); Alkaline Phosphatase 91 U/L (40-130); Aspartate Amino Transferase 18 U/L (0-40); Blood Urea Nitrogen 17 mg/dL (6-20); Calcium 8.6 mg/dL (8.5-10.5); Carbon Dioxide 21 mmol/L (22-29); Chloride 102 mmol/L (98-107); Creatinine Clr Calc Pharmacy 128.1123; Globulin 3.4 g/dL (1.3-4.6); Glomerular Filtration Rate 121.4 mL/min (90-130); Glucose 86 mg/dL (65-115); Osmolality Calculated 285 mOsm/kg (285-295); Sodium 137 mmol/L (136-145); Total Bilirubin 0.2 mg/dL (0.15-1.2); Total Protein 7.4 g/dL (6.6-8.7)
[2023-06-09 01:31] LABS: Acetaminophen < 5.0 ug/mL (10-30); Salicylate < 0.3 mg/dL (3-10)
[2023-06-09 01:32] LABS: Anion Gap 18.3 (5-19); Potassium 4.3 mmol/L (3.5-5.1)
[2023-06-09 01:53] VITALS: RESP 18
[2023-06-09 01:56] LABS: Add Urine Microscopic? NO; Charge for UA Resulting for Rev
[2023-06-09 01:59] LABS: Bilirubin Urine Neg (Negative); Blood Urine Neg (Negative); Glucose Urine UA Norm (Normal); Ketones Urine Negative (Negative); Leukocyte Esterase Urine Negative (Negative); Nitrate Urine Negative (Negative); Protein Urine Neg (Negative); Specific Gravity, Urine 1.005 (1.005-1.030); Urine Appearance Clear (CLEAR); Urine Color Colorless (Yellow); Urobilinogen Urine Norm (Negative); pH Urine 6.5 (5-7)
[2023-06-09 02:08] LABS: Amphetamines Screen Urine Negative (Negative); Barbiturates Screen Urine Negative (Negative); Benzodiazepines Screen Urine Negative (Negative); Cocaine Screen Urine Negative (Negative); Opiate Screen Urine Negative (Negative); PCP Screen Urine Negative (Negative); THC Screen Urine Positive (Negative)
[2023-06-09 05:24] VITALS: RESP 14
[2023-06-09 07:38] VITALS: BP 117/77; PULSE 89; RESP 16; O2SAT 95
--- NOTE | 2023-06-09 08:48 | PC.PHAR ---
pt states he takes care of his own medications-pt states he is taking the medications entered states he is out of some of them notes are made in the pharmacy comments with what ext med history shows as last fill dates [facility] not open on sundays to verify last fill and sheepskin pickler dates-pt states he hasnt had the vivitrol injection since april 2023
--- NOTE | 2023-06-09 10:51 | W.PM.PSYCONS ---
Providers/Reason for Consult Consulting Physican/Specialty*: Shola Em MD., Psychiatry. Reason for Consult*: Evaluate for admission/safety Primary Care Provider: Chayito Cali MD Psych Consult HPI History of Present Illness Ludin Gordon is a 47 year old male who presented to the emergency department with the following report: Chief Complaint: Psychiatric Symptoms Stated Complaint: MHE, ETOH Time Seen by Provider: 06/08/23 23:54 History of Present Illness: 47-year-old male well-known to the emergency department service. He presents hearing voices. He points to a corner of the room at the ceiling, saying, I am not mad at you guys, I am mad at him. I am going to crawl up there and get him. He needs to shut up. He tells me that he does not wish to hurt himself, or any of my staff, but that he definitely wants to hurt whoever is responsible for the voices he is hearing. He is admits to being off his medication. He had alcohol to drink tonight. A psychiatric consult was requested as he was reporting lethality and wanting to be admitted. His last emergency room visit involved threats to kill this web content writer and concerns for a weapon. We discussed the overall concern of how he and this web content writer would be able to manage the interaction if he is making out right threats to kill this web content writer. Additionally we discussed as we discussed before the critical need for actual sober living treatment and the counterproductive nature of admissions that are just meant to avoid being homeless or being in withdrawal or things of that nature. We discussed at length the resources that are available to him to actually connect to make change. We spoke specifically about the crisis stabilization center and how they could help him if he is being serious about wanting to go to rehab. We talked about them being able to help him with resources if he has been kicked out again. He reported that he has been taking his medications but could not remember which ones he had or did not have. We discussed utilizing the crisis stabilization center as a source for that as well. We discussed that he would be welcome to go to the crisis stabilization center after he left this encounter. We discussed the concerns for malingering and our significant concerns about him coming here to gain inpatient treatment but those visits never ending in him following through on the resources that were obtained and even times he left when we had gotten him a sober living bed. Meds Home Medications and Allergies Home Medications Medication Instructions Recorded Confirmed Last Taken Type duloxetine 60 mg capsule,delayed 60 mg PO DAILY 30 days #30 caps 04/04/23 06/09/23 Unknown Rx release gabapentin 300 mg capsule 300 mg PO TID 30 days #90 caps 04/04/23 06/09/23 Unknown Rx olanzapine 10 mg disintegrating 10 mg PO BEDTIME 30 days #30 tabs 04/04/23 06/09/23 1 Month Ago Rx tablet ~05/09/23 pantoprazole 40 mg tablet,delayed 40 mg PO DAILY 30 days #30 tabs 04/04/23 06/09/23 Unknown Rx release tamsulosin 0.4 mg capsule 0.4 mg PO DAILY 30 days #30 caps 04/04/23 06/09/23 Unknown Rx thiamine mononitrate (vit B1) 100 100 mg PO DAILY 30 days #30 tabs 04/04/23 06/09/23 Unknown Rx mg tablet (Vitamin B-1 (mononitrate)) trazodone 50 mg tablet 50 mg PO BEDTIME PRN Sleep 30 days 04/04/23 06/09/23 Unknown Rx #30 tabs dextromethorphan-guaifenesin 10 5 ml PO Q6H PRN Cough 06/09/23 06/09/23 Unknown History mg-100 mg/5 mL oral syrup (Tussin DM) fluticasone propionate 50 2 spray intranasal DAILY 06/09/23 06/09/23 Unknown History mcg/actuation nasal spray,suspension lurasidone 60 mg tablet 60 mg PO DAILY@18 06/09/23 06/09/23 Unknown History Allergies Allergy/AdvReac Type Severity Reaction Status Date / Time No Known Allergies Allergy Verified 06/09/23 08:42 PFSH NPU PFSH: Medical History Atrial flutter Atrial fibrillation Methamphetamine abuse -UDS positive for amphetamines/THC Bipolar 1 disorder, manic, mild Depressive disorder, not elsewhere classified Adjustment disorder with mixed disturbance of emotions and conduct Alcohol use disorder -Has known history of alcohol abuse&DT Surgical History H/O hernia repair History of appendectomy Family History Other Alcoholism /alcohol abuse Social History Quit status (tobacco/nicotine): has tried quititng Number of times tried to quit tobacco: 4 Second hand smoke exposure: Yes Alcohol intake: current Substance/Drug Use: current Current gender identity: Male Mental Status Exam MSE Comments: This is a well-nourished well-developed white male in hospital scrubs with adequate grooming and eye contact.? No abnormal movements except for psychomotor retardation.? Cooperative with exam in mild distress.? Speech was slightly decreased rate and volume.? Mood described as okay just trying to deal with my , affect congruent and subdued.? Thought process organized.? Thought content: Patient endorsed suicidal and homicidal ideation, but this is consistent with his presentations as he was clearly attempting to get hospitalized without any clear reasoning for his situation, there are no delusions reported or noted, he denied any auditory visualizations. Attention and concentration were intact and memory was unreliable but none were formally tested.? He is alert and oriented x3.? Insight, judgment and impulse control are limited versus impaired. Vitals/I&O/Wt Last Vital Signs Temp 97.4 F L 06/08/23 23:52 Pulse 89 06/09/23 07:38 Resp 16 06/09/23 07:38 BP 117/77 06/09/23 07:38 Pulse Ox 95 06/09/23 07:38 O2 Del Method Room Air 06/09/23 07:38 06/08/23 06/09/23 06/09/23 22:59 06:59 14:59 Intake Total 1.2 / 1.2 Balance 1.2 / 1.2 Weight last 48 hrs Weight 72.575 kg Data NPU 06/09/23 00:24 06/09/23 00:24 A&P Assessment and plan (1) Pneumothorax: (2) Suicidal ideation: (3) Alcohol intoxication: (4) Alcohol use disorder: (5) Methamphetamine abuse: (6) Adjustment disorder with mixed disturbance of emotions and conduct: (7) Major depressive disorder: Plan This is a 47-year-old male with many past psychiatric admissions and significant history of substance abuse, typically alcohol, methamphetamine and cannabis who presents as he recently has desiring inpatient hospitalization but not having follow through on any of the previous recommendations with continued concerns for malingering. Plan: 1. Continue current medication. 2. Refer to crisis stabilization center and advised follow through on previous recommendation for addiction treatment. 3. No credible lethality noted. 4. Encourage sober living treatment at the highest level of care to which he is willing to commit. 5. Significant concern for malingering agree with discharge to outpatient resources. Involuntary Hold Information 96 Hour Hold: 96 Hour Involuntary Admission: No Attestations NPU Medical Necessity Statement*: N/A. Please see primary team note for medical necessity but agree with discharge. Coding Level of Care Code Acute Code for Chg Fwd Diagnoses Pneumothorax J93.9 Suicidal ideation R45.851 Alcoholic intoxication without complication F10.929 Alcohol use disorder F10.90 Methamphetamine abuse F15.10 Adjustment disorder with mixed disturbance of emotions and conduct F43.25 Major depressive disorder F32.9
== END 2023-06-09 11:11 | disposition home or self-care (01) ==
PROVIDERS: Emergency Provider Emergency Medicine; PCP Family Medicine
DX: F19.951 Other psychoactive substance use, unspecified with psychoactive substance-induced psychotic disorder with hallucinations (principal); F10.90 Alcohol use, unspecified, uncomplicated
CPT/HCPCS: 36415; 71045; 80053; 80306; 80307; 81003; 85025; 93005; 96372; 99285; J2060; J3486

== ENCOUNTER 2023-06-22 03:54 | Inpatient (IN) | payer MEDICAID, SELFPAY ==
[2023-06-22] VITALS (33 sets, daily range): BP systolic 84–133; BP diastolic 51–101; PULSE 79–126; RESP 10–26; TEMP 36.6–37.1; O2SAT 89–100; BMI 26.6; BMI 21.4
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
--- NOTE | 2023-06-22 04:22 | ECG_ITS ---
[facility] Test Date: 2023-06-22 Pat Name: Ludin Gordon Department: Room: Gender: Male [employer] Member: : 1975 Requested By: Fransisco Berry Order Number: [id number] Yeni MD: Leon Mancuso M.D. Measurements Intervals [place] Rate: 94 P: 65 ID: [id number] QRS: 76 QRSD: 85 T: 80 QT: 348 QTc: 436 Interpretive Statements SINUS RHYTHM Compared to ECG 06/09/2023 00:19:52 Sinus tachycardia no longer present Electronically Signed On 06-22-2023 6:05:30 ENVIRONMENTAL TECHNICAL OFFICER by Leon Mancuso M.D. [email or web address] [email or web address] liverpool [id number]
--- NOTE | 2023-06-22 04:24 | PC.NURSE ---
Patient 96 Hour Involuntary Hold Rights have been read to the patient and a copy of the same has been given to him. Undergraduate Intern Estefanía Rubio was present at bedside at the time of presentation of Rights.
[2023-06-22 04:25] LABS: Basophils % 0.5 %; Eosinophils # 0.1 10^3/uL (0.0-0.8); Eosinophils % 2.4 %; Hematocrit 43.4 % (37-53); Lymphocytes # 1.5 10^3/uL (0.8-4.8); Lymphocytes % 26.1 %; Mean Corpuscular HGB Conc 33.2 g/dL (30-55); Mean Corpuscular Hemoglobin 35.7 pg (27-33); Mean Corpuscular Volume 107.7 fl (82-101); Mean Platelet Volume 9.2 fL (7.4-10.4); Monocytes # 0.8 10^3/uL (0.2-0.9); Monocytes % 13.6 %; Neutrophils # 3.33 10^3/uL (1.8-7.7); Neutrophils % 57.2 %; Nucleated Red Blood Cells % 0 %; Platelet Count 284 10^3/cmm (157-399); Red Blood Count 4.03 10^6/uL (3.85-5.65); Red Cell Distribution Width 13.1 % (12.1-15.1); White Blood Count 5.82 10^3/uL (3.29-11.43)
--- NOTE | 2023-06-22 04:29 | XRR_ITS ---
PROCEDURE INFORMATION: Exam: XR Chest Exam date and time: 06/22/2023 4:36 AM Age: 47 years old Clinical indication: Patient HX: C/O cough TECHNIQUE: Imaging protocol: Radiologic exam of the chest. Views: 1 view. COMPARISON: CR XR chest 1V portable [id number] 06/09/2023 12:25 AM FINDINGS: Lungs: There is nonspecific mildly increased lung markings bilaterally. Pleural spaces: Unremarkable. No pleural effusion. No pneumothorax. Heart/Mediastinum: Unremarkable. No cardiomegaly. Bones/joints: Old healed fracture deformity of the left proximal humerus noted. XR/XR chest 1V portable [id number] IMPRESSION: Nonspecific increased lung markings bilaterally, which can be seen with pulmonary congestion or pneumonia. Clinical correlation recommended.
[2023-06-22 04:35] LABS: Amphetamines Screen Urine Negative (Negative); Barbiturates Screen Urine Negative (Negative); Benzodiazepines Screen Urine Negative (Negative); Cocaine Screen Urine Negative (Negative); Opiate Screen Urine Negative (Negative); PCP Screen Urine Negative (Negative); THC Screen Urine Negative (Negative)
[2023-06-22 04:45] LABS: Alanine Aminotransferase 16 U/L (0-41); Alcohol Level 180 mg/dL (0-10); Alkaline Phosphatase 78 U/L (40-130); Aspartate Amino Transferase 19 U/L (0-40); Blood Urea Nitrogen 15 mg/dL (6-20); Calcium 9.1 mg/dL (8.5-10.5); Carbon Dioxide 26 mmol/L (22-29); Chloride 106 mmol/L (98-107); Globulin 3.1 g/dL (1.3-4.6); Glomerular Filtration Rate 121.4 mL/min (90-130); Glucose 84 mg/dL (65-115); Osmolality Calculated 294 mOsm/kg (285-295); Salicylate < 0.3 mg/dL (3-10); Sodium 142 mmol/L (136-145); Total Bilirubin 0.2 mg/dL (0.15-1.2); Total Protein 7.1 g/dL (6.6-8.7)
[2023-06-22 04:47] LABS: Acetaminophen < 5.0 ug/mL (10-30)
[2023-06-22 04:48] LABS: Anion Gap 13.6 (5-19); Potassium 3.6 mmol/L (3.5-5.1)
--- NOTE | 2023-06-22 05:50 | PC.NURSE ---
Patient arrived from the ER by wheelchair and transferred to the bed well. Patient was uncooperative with a lot of the questions being asked.
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
[2023-06-22] MEDS: enoxaparin 40 mg/0.4 mL Syringe SUBCUT (06:26)
[2023-06-22] MEDS: folic acid 1 MG, multivitamin inj 10 ML, thiamine 100 MG in sodium chloride 0.9% 1,000 ML 252.8 MG IV (06:26)
[2023-06-22] MEDS: pantoprazole 40 mg SDV IVP (06:26)
[2023-06-22] MEDS: sodium chloride 0.9% 1,000 ML 75 ML IV (06:28)
[2023-06-22 07:43] LABS: Ammonia 45 umol/L (16-60)
[2023-06-22 07:48] LABS: Lactic Sepsis W/Reflex 1.3 mmol/L (0.5-2.2)
[2023-06-22 07:50] LABS: Troponin(5th) Baseline 9 ng/L (0-15)
[2023-06-22] MEDS: multivitamin therapeutic Tablet 1 TAB PO (08:08)
[2023-06-22] MEDS: thiamine 100 mg Tablet PO (08:08)
[2023-06-22] MEDS: folic acid 1 mg Tablet PO (08:08)
[2023-06-22 08:13] LABS: NT Pro B Type Natriuretic Pept 145 pg/mL (0-125); Procalcitonin 0.03 ng/mL (0-0.5); Thyroid Stimulating Hormone 1.64 uIU/mL (0.27-4.20); Vitamin B12 653 pg/mL (232-1245)
--- NOTE | 2023-06-22 08:15 | ECG_ITS ---
[facility] Test Date: 2023-06-22 Pat Name: Ludin Gordon Department: Room: ICU02 Gender: Male [employer] Mate: : 1975 Requested By: Cyril Diaz Order Number: [id number] Yeni MD: Tylor Hill M.D. Measurements Intervals [place] Rate: 112 P: 47 IN: 136 QRS: 75 QRSD: 86 T: 86 QT: 332 QTc: 455 Interpretive Statements SINUS TACHYCARDIA SEPTAL MYOCARDIAL INFARCTION , PROBABLY OLD [40+ ms Q WAVE IN V1/V2] Compared to ECG 06/22/2023 04:22:29 Myocardial infarct finding now present Sinus rhythm no longer present Electronically Signed On 06-23-2023 8:34:21 AUTOMATIC CAR WASH ATTENDANT by Tylor Hill M.D. [id number]
[2023-06-22 08:22] LABS: Estmated Average Glucose 97
[2023-06-22 08:24] LABS: Chol HDL Ratio 2.92 mg/dL (1.0-5.00); Cholesterol 172 mg/dL (0-200); HDL Cholesterol 59 mg/dL (60-100); LDL Cholesterol Calculated 96 mg/dL (50-129); LDL HDL Ratio 1.63 RATIO (0.00-3.22); Lipase 72 U/L (13-60); Magnesium 2.1 mg/dL (1.7-2.3); Phosphorus 4.5 mg/dL (2.5-4.5); Triglycerides 87 mg/dL (0-150)
[2023-06-22 08:31] LABS: Add Urine Microscopic? NO; Charge for UA Resulting for Rev
[2023-06-22 08:34] LABS: Bilirubin Urine Neg (Negative); Blood Urine Neg (Negative); Glucose Urine UA Norm (Normal); Ketones Urine Negative (Negative); Leukocyte Esterase Urine Negative (Negative); Nitrate Urine Negative (Negative); Protein Urine Neg (Negative); Specific Gravity, Urine 1.005 (1.005-1.030); Urine Appearance Clear (CLEAR); Urine Color Light yellow (Yellow); Urobilinogen Urine Neg (Negative); pH Urine 5 (5-7)
[2023-06-22] MEDS: LORazepam 2 mg/mL INJ 10 mL MDV IVP (09:30)
[2023-06-22 10:14] LABS: Adenovirus Not Detected (NOT DETECT); Chlamydia Pneumoniae Not Detected (NOT DETECT); Coronavirus 229E,HKU1,NL63,OC4 Not Detected (NOT DETECT); Human Metapneumovirus Not Detected (NOT DETECT); Human Rhinovirus/Enterovirus Not Detected (NOT DETECT); Influenza A Not Detected (NOT DETECT); Influenza A H1 Not Detected (NOT DETECT); Influenza A H1-2009 Not Detected (NOT DETECT); Influenza A H3 Not Detected (NOT DETECT); Influenza B Not Detected (NOT DETECT); Mycoplasma Pneumoniae Not Detected (NOT DETECT); Parainfluenza Virus Type 1 Not Detected (NOT DETECT); Parainfluenza Virus Type 2 Not Detected (NOT DETECT); Parainfluenza Virus Type 3 Not Detected (NOT DETECT); Parainfluenza Virus Type 4 Not Detected (NOT DETECT); Respiratory Syncytial Virus A Not Detected (NOT DETECT); Respiratory Syncytial Virus B Not Detected (NOT DETECT); SARS-COV-2 Not Detected (NOT DETECT)
[2023-06-22 10:32] LABS: Troponin 5 2HR 17.77 ng/L (0-15); Troponin 5 2HR Delta 8.77 ABS# (0-10)
--- NOTE | 2023-06-22 11:30 | PC.PHAR ---
pt unable to verify medications today this note is from when pt was here on 06/09/23- pt states he takes care of his own medications-pt states he is taking the medications entered states he is out of some of them notes are made in the pharmacy comments with what ext med history shows as last fill dates [facility] not open on sundays to verify last fill and picker feeder dates-pt states he hasnt had the vivitrol injection since april 2023
--- NOTE | 2023-06-22 12:15 | ECG_ITS ---
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 Measurements Intervals [place] Rate: 104 P: 45 OK: 146 QRS: 70 QRSD: 84 T: 80 QT: 328 QTc: 432 Interpretive Statements SINUS TACHYCARDIA MINIMAL ST DEPRESSION [0.025+ mV ST DEPRESSION] ABNORMAL RHYTHM ECG Compared to ECG 06/22/2023 08:40:18 ST (T wave) deviation now present Myocardial infarct finding no longer present Electronically Signed On 06-23-2023 8:36:18 TOUR NARRATOR by Tylor Hill M.D. [id number]
--- NOTE | 2023-06-22 12:58 | W.PM.EVENTAC ---
Event Note Event Note: Patient stating that he took multiple tablets of Latuda He is drinking alcohol daily basis Patient is not working. Is stating that he does not pay his bills He is still Does not give straight answers when I asked him about if he tried to commit suicide Nurse was also present in the room Will keep him on CIWA protocol Will start him on mechanical soft diet In case of any belligerent/aggressive behavior I would recommend intramuscular phenobarbital
[2023-06-22 13:58] LABS: Troponin 5 6HR 10.65 ng/L (0-15); Troponin 5 6HR Delta 1.65 ng/L (0-12)
[2023-06-23] VITALS (16 sets, daily range): BP systolic 117–142; BP diastolic 78–100; PULSE 77–99; RESP 15–18; TEMP 36.4–36.8; O2SAT 95–99; BMI 21.5
[2023-06-23] MEDS: LORazepam 2 mg Tablet PO ×3 (00:50→22:08)
--- NOTE | 2023-06-23 00:50 | PC.NURSE ---
Patient has been resting with eyes closed but seems very restless, alot of twitching/jerking movements. Opens eyes when I say his name, has been polite. CIWA score is 11. Ativan 2 mg PO given per CIWA protocol.
[2023-06-23 04:02] LABS: Basophils % 0.5 %; Eosinophils # 0.1 10^3/uL (0.0-0.8); Hematocrit 42.8 % (37-53); Lymphocytes # 1.8 10^3/uL (0.8-4.8); Lymphocytes % 29.8 %; Mean Corpuscular HGB Conc 33.6 g/dL (30-55); Mean Corpuscular Hemoglobin 35.8 pg (27-33); Mean Corpuscular Volume 106.5 fl (82-101); Monocytes # 0.8 10^3/uL (0.2-0.9); Monocytes % 12.8 %; Neutrophils # 3.29 10^3/uL (1.8-7.7); Neutrophils % 54.7 %; Nucleated Red Blood Cells % 0 %; Platelet Count 254 10^3/cmm (157-399); Red Blood Count 4.02 10^6/uL (3.85-5.65); Red Cell Distribution Width 12.9 % (12.1-15.1); White Blood Count 6.01 10^3/uL (3.29-11.43)
[2023-06-23 04:19] LABS: Alanine Aminotransferase 17 U/L (0-41); Albumin Level 3.6 g/dL (3.5-5.2); Alkaline Phosphatase 68 U/L (40-130); Anion Gap 11.7 (5-19); Aspartate Amino Transferase 18 U/L (0-40); Blood Urea Nitrogen 18 mg/dL (6-20); Calcium 8.6 mg/dL (8.5-10.5); Carbon Dioxide 27 mmol/L (22-29); Chloride 104 mmol/L (98-107); Globulin 3.1 g/dL (1.3-4.6); Glomerular Filtration Rate 90.8 mL/min (90-130); Glucose 83 mg/dL (65-115); Osmolality Calculated 289 mOsm/kg (285-295); Potassium 3.7 mmol/L (3.5-5.1); Sodium 139 mmol/L (136-145); Total Bilirubin 0.5 mg/dL (0.15-1.2); Total Protein 6.7 g/dL (6.6-8.7)
[2023-06-23] MEDS: enoxaparin 40 mg/0.4 mL Syringe SUBCUT (06:17)
[2023-06-23] MEDS: pantoprazole 40 mg SDV IVP (06:23)
[2023-06-23] MEDS: folic acid 1 mg Tablet PO (08:01)
[2023-06-23] MEDS: multivitamin therapeutic Tablet 1 TAB PO (08:01)
[2023-06-23] MEDS: thiamine 100 mg Tablet PO (08:01)
--- NOTE | 2023-06-23 12:14 | PC.NURSE ---
Transferred patient to NPU with Faisal in security as escort. Report given to Nuris. Time in ICU today was uneventfu.. Rested in bed throughout the day, occasional muscle tremors, but scored low on the CIWA not requiring medicaiton intervention. Calm and cooperative. Vitals within normal limits al morning, but would not wear pulse oxietry.
--- NOTE | 2023-06-23 13:20 | PC.NURSE ---
Asked Dr. Kaplan if we could restart patient's home medications. Doctor didn't feel comfortable restarting them right now because of being unsure of what patient overdosed on.
--- NOTE | 2023-06-23 14:04 | P.NPUCON_ITS ---
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 Anxiety disorder, unspecified F41.9
[2023-06-23] MEDS: ibuprofen 600 mg Tablet PO (22:08)
[2023-06-23] MEDS: nicotine 2 mg Gum BUCCAL (22:08)
[2023-06-24] MEDS: nicotine 4 mg lozenge MUCOUS MEM ×4 (04:22→19:46)
[2023-06-24] MEDS: ondansetron 4 MG Tablet PO (05:12)
[2023-06-24 06:00] VITALS: BP 134/96; PULSE 94; RESP 18; TEMP 36.3; O2SAT 94
[2023-06-24] MEDS: LORazepam 2 mg Tablet PO ×2 (07:28→13:26)
[2023-06-24] MEDS: folic acid 1 mg Tablet PO (07:28)
[2023-06-24] MEDS: thiamine 100 mg Tablet PO (07:28)
[2023-06-24] MEDS: multivitamin therapeutic Tablet 1 TAB PO (07:29)
[2023-06-24] MEDS: acetaminophen 325 mg Tablet 650 MG PO (13:26)
[2023-06-24 14:00] VITALS: BP 125/75; PULSE 73; RESP 16; TEMP 36.4; O2SAT 98
--- NOTE | 2023-06-24 17:29 | W.PM.NPUPNS ---
Subjective NPU Subjective: Patient is a 47-year-old white male admitted with suicidal ideation , unspecified mood disorder and alcohol dependence admitted with acute alcohol intoxication and reports of overdosing on medication. Patient was isolative in his room most of the day. He had received Ativan for alcohol related withdrawal. The patient had reported no follow-up with outpatient treatment for substance use. He had reported that he continued to remain in the dark as to whether he would be able to return home to his . He continued to report alcohol related withdrawal here. Mental Status Exam MSE Comments: This is a well-nourished well-developed white male in hospital scrubs with adequate grooming and eye contact.? No abnormal movements except for psychomotor retardation.? He was minimally cooperative with exam in mild distress.? Speech was decreased in rate and volume. ? Mood described as allright. ? Thought process was organized.? Thought content: Patient endorsed suicidal ideation with no specific immediate plan and denied homicidal ideation. there are no delusions reported or noted, he denied any auditory visualizations. Attention and concentration were intact and memory was unreliable but none were formally tested.? He is alert and oriented x3.? Insight, judgment and impulse control are limited versus impaired. Vitals/I&O/Wt Last Vital Signs Temp 97.6 F 06/24/23 14:00 Pulse 73 06/24/23 14:00 Resp 16 06/24/23 14:00 BP 125/75 06/24/23 14:00 Pulse Ox 98 06/24/23 14:00 O2 Del Method Room Air 06/24/23 06:00 Weight last 48 hrs Weight 68.13 kg Data NPU 06/23/23 03:49 06/23/23 03:49 A&P Assessment and plan (1) Depressive disorder: (2) Alcohol dependence: (3) Anxiety disorder, unspecified: Plan 47-year-old male with alcohol dependence , methamphetamine abuse and unspecified mood disorder admitted after an alleged overdose on unknown quantity of medications cleared from ICU endorsing depression and suicidality. Patient would likely benefit from acute inpatient stay with monitoring for acute alcohol withdrawal symptoms. Patient appears to be having some secondary gain associated with this stay as he reports that he wishes to return home to . It remains questionable as to whether patient overdosed at all. ?1.? ? Engage? patient in individual ,milieu, and group therapy 2. ? Requires substance abuse rehabilitation ?3. ? TO-15 minute checks on the unit. 4.? Recommend sober living treatment at the highest level of care to which the patient is willing to commit. ?5. ? [facility] protocol, holding on psychiatric medications. Patient needs to consider treatment for alcohol dependence. Involuntary Hold Information 96 Hour Hold: 96 Hour Involuntary Admission: Yes 96 Hour Hold Ending Date: 06/28/23 96 Hour Hold Ending Time: 00:01 Attestations NPU Medical Necessity Statement*: Inpatient hospitalization is medically necessary and be clinically appropriate intervention at this time.? We will monitor/initiate medications and make changes as indicated.?? His likely length of stay 2-3 days. Coding Level of Care Code Acute Code for [facility] Fwd Diagnoses Depressive disorder F32.A Alcohol dependence F10.20 Anxiety disorder, unspecified F41.9
[2023-06-24] MEDS: OLANZapine 5 mg ODT PO (19:57)
[2023-06-24 20:18] VITALS: BP 142/94; PULSE 76; RESP 16; O2SAT 97
[2023-06-25 06:00] VITALS: BP 114/77; PULSE 60; RESP 16; TEMP 36.8; O2SAT 100
[2023-06-25] MEDS: nicotine 4 mg lozenge MUCOUS MEM ×2 (07:58→17:49)
[2023-06-25] MEDS: OLANZapine 5 mg ODT PO (07:58)
[2023-06-25] MEDS: multivitamin therapeutic Tablet 1 TAB PO (08:41)
[2023-06-25] MEDS: ibuprofen 600 mg Tablet PO (08:41)
[2023-06-25] MEDS: folic acid 1 mg Tablet PO (08:41)
[2023-06-25] MEDS: thiamine 100 mg Tablet PO (08:41)
--- NOTE | 2023-06-25 08:51 | PC.NURSE ---
Patient denies si/hi and ah. He does endorse vh and says he has occasionally been seeing shadow figures and occasionally images in the mirror. Patient endorses anxiety at a 6/10 and depression at an 8/10. He states he has been thinking about his and all of the problems in their marriage. He has also been having nightmares.
[2023-06-25 14:00] VITALS: BP 94/58; PULSE 59; RESP 12; TEMP 36.3; O2SAT 97
--- NOTE | 2023-06-25 15:40 | W.PM.NPUPNS ---
Subjective NPU Subjective: Patient is a 47-year-old white male admitted with suicidal ideation , unspecified mood disorder and alcohol dependence admitted with acute alcohol intoxication and reports of overdosing on medication. Patient had requested to be started back on his previous medications. He had reported that he still had been feeling depressed. He had expressed that he had not been able to follow-up to receive treatment for alcohol abuse. He had continued to report that he would like to return home when stabilized. Patient was informed that inpatient substance abuse treatment would be beneficial. He reported adequate sleep. He was minimally engaged in self-care. He had been able to attend groups briefly. Mental Status Exam MSE Comments: This is a well-nourished well-developed white male in hospital scrubs with poor grooming and eye contact.? No abnormal movements except for psychomotor retardation.? He was minimally cooperative with exam in mild distress.? Speech was decreased in rate and volume. ? Mood described as not good. ? Thought process was organized.? Thought content: Patient endorsed suicidal ideation with no specific immediate plan and denied homicidal ideation. there are no delusions reported or noted, he denied any auditory visualizations. Attention and concentration were intact and memory was unreliable but none were formally tested.? He is alert and oriented x3.? Insight, judgment and impulse control are limited Vitals/I&O/Wt Last Vital Signs Temp 97.3 F L 06/25/23 14:00 Pulse 59 L 06/25/23 14:00 Resp 12 06/25/23 14:00 BP 94/58 06/25/23 14:00 Pulse Ox 97 06/25/23 14:00 O2 Del Method Room Air 06/25/23 06:00 Data NPU 06/23/23 03:49 06/23/23 03:49 A&P Assessment and plan (1) Depressive disorder: (2) Alcohol dependence: (3) Anxiety disorder, unspecified: Plan 47-year-old male with alcohol dependence , methamphetamine abuse and unspecified mood disorder admitted after an alleged overdose on unknown quantity of medications cleared from ICU endorsing depression and suicidality. Patient would likely benefit from acute inpatient stay with monitoring for acute alcohol withdrawal symptoms. Patient appears to be having some secondary gain associated with this stay as he reports that he wishes to return home to . It remains questionable as to whether patient overdosed at all. ?1.? ?Engage? patient in individual ,milieu, and group therapy 2. ? Requires substance abuse rehabilitation ?3. ? TO-15 minute checks on the unit. 4.? Recommend sober living treatment at the highest level of care to which the patient is willing to commit. ?5. ? [facility] protocol, will start Latuda 20mg at 5 pm and cymbalta 30mg as previously prescribed. Involuntary Hold Information 96 Hour Hold: 96 Hour Involuntary Admission: Yes 96 Hour Hold Ending Date: 06/28/23 96 Hour Hold Ending Time: 00:01 Attestations NPU Medical Necessity Statement*: Inpatient hospitalization is medically necessary and be clinically appropriate intervention at this time.? We will monitor/initiate medications and make changes as indicated.?? His likely length of stay 1-2 days. Coding Level of Care Code Acute Code for [facility] Fwd Diagnoses Depressive disorder F32.A Alcohol dependence F10.20 Anxiety disorder, unspecified F41.9
[2023-06-25] MEDS: lurasidone 20 mg Tablet PO (17:42)
[2023-06-25] MEDS: hyDROXYzine 25 mg Capsule 50 MG PO (18:26)
[2023-06-25 20:03] VITALS: BP 109/72; PULSE 90; RESP 16; TEMP 37.1; O2SAT 96
[2023-06-26] MEDS: OLANZapine 5 mg ODT PO (01:39)
[2023-06-26 06:00] VITALS: BP 104/68; PULSE 75; RESP 16; O2SAT 97
[2023-06-26] MEDS: nicotine 4 mg lozenge MUCOUS MEM ×3 (06:37→11:06)
[2023-06-26] MEDS: duloxetine 30 mg Capsule PO (08:04)
[2023-06-26] MEDS: thiamine 100 mg Tablet PO (08:04)
[2023-06-26] MEDS: folic acid 1 mg Tablet PO (08:04)
[2023-06-26] MEDS: multivitamin therapeutic Tablet 1 TAB PO (08:06)
--- NOTE | 2023-06-26 08:11 | ECG_ITS ---
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 Measurements Intervals Chancellor Rate: 74 P: 10 IN: 138 QRS: 68 QRSD: 84 T: 75 QT: 365 QTc: 407 Interpretive Statements SINUS RHYTHM Compared to ECG 06/22/2023 12:37:03 Sinus tachycardia no longer present ST (T wave) deviation no longer present Electronically Signed On 06-26-2023 21:37:55 DENTAL SCHEDULER by Jesus Tellez M.D. [id number]
--- NOTE | 2023-06-26 08:27 | PC.NURSE ---
Patient denies avh and si/hi. He does report having chest pain and not being able to feel his hands. Upon assessment his fingers are purple and capillary refill is greater than [address] Kaplan was notified and he ordered a stat ekg and requested a medical consult. No further orders at this time.
[2023-06-26 09:16] LABS: Troponin T (5th) Once < 6 ng/L (0-15)
[2023-06-26 09:56] LABS: Creatine Phosphokinase 49 U/L (39-308); Glomerular Filtration Rate 90.8 mL/min (90-130)
--- NOTE | 2023-06-26 11:44 | PM.PN ---
Subjective Subjective: Ludin is a 47-year-old white male admitted to the Neuropsych Unit. I was called to see him as he had been having some chest discomfort today. He reports he had episodes off and on all day, sharp, left-sided, more in his upper left chest neck and almost shoulder region. He reports it seems to worsen when he coughs. He denies any sputum production. He reports no chest discomfort right now. He wonders if an ibuprofen might help. No significant radiation to the pain. Has never had any heart disease or discomfort with exertion. This pain is not exertional. He is not really short of breath. Medications: Reviewed: Yes Vitals/I&O/Wt Last Vital Signs Temp 98.7 F 06/25/23 20:03 Pulse 75 06/26/23 06:00 Resp 16 06/26/23 06:00 BP 104/68 06/26/23 06:00 Pulse Ox 97 06/26/23 06:00 O2 Del Method Room Air 06/25/23 20:03 Physical Exam Narrative: General exam no distress Neck is supple Cardiovascular regular in rhythm without murmur Lungs a few bilateral expiratory wheezes left greater than right Abdomen is soft Extremities no cyanosis clubbing or edema Data 06/23/23 03:49 06/26/23 08:48 Other Labs: Chest x-ray from admission reviewed, no pneumothorax or focal infiltrate Troponin negative EKG normal sinus rhythm, normal axis, no concerning ST or T wave changes. A&P Assessment and plan (1) Chest pain: Patient reports chest pain today. By description it appears musculoskeletal but he is also wheezing so could have some respiratory component. EKG and troponin are not concerning. Ibuprofen 600 mg p.o. x 1 Will continue to follow along with you (2) COPD (chronic obstructive pulmonary disease): He has been told he has COPD in the past He is actively wheezing Budesonide twice daily, DuoNeb every 6 hours Attestations Medical Necessity Statement*: As per primary Coding Level of Care Code Acute Code for [facility] Fwd Diagnoses Chest pain R07.9 COPD (chronic obstructive pulmonary disease) J44.9
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
[2023-06-26] MEDS: ibuprofen 600 mg Tablet PO (12:23)
[2023-06-26] MEDS: hyDROXYzine 25 mg Capsule 50 MG PO (12:24)
[2023-06-26 13:19] VITALS: BP 104/68; PULSE 75; RESP 16; O2SAT 97
== END 2023-06-26 14:22 | disposition home or self-care (01) | DRG 918 ==
LOC: ER 04:58 → ICU 05:15 → NP 06-23 12:06
PROVIDERS: Psychiatry & Neurology Psychiatry; Admitting Provider Family Medicine; Emergency Provider Emergency Medicine; PCP Family Medicine; Visit Provider Internal Medicine
DX: T43.592A Poisoning by other antipsychotics and neuroleptics, intentional self-harm, initial encounter (principal); G93.40 Encephalopathy, unspecified; T43.212A Poisoning by selective serotonin and norepinephrine reuptake inhibitors, intentional self-harm, initial encounter; F32.9 Major depressive disorder, single episode, unspecified; F10.229 Alcohol dependence with intoxication, unspecified; Y90.6 Blood alcohol level of 120-199 mg/100 ml; I48.91 Unspecified atrial fibrillation; F15.10 Other stimulant abuse, uncomplicated; F43.25 Adjustment disorder with mixed disturbance of emotions and conduct; F17.200 Nicotine dependence, unspecified, uncomplicated; F43.10 Post-traumatic stress disorder, unspecified; R07.89 Other chest pain; J44.9 Chronic obstructive pulmonary disease, unspecified; Z11.52 Encounter for screening for COVID-19; Z63.0 Problems in relationship with spouse or partner
CPT/HCPCS: 36415; 71045; 80053; 80061; 80306; 80307; 81003; 82140; 82550; 82565; 82607; 83036; 83605; 83690; 83735; 83880; 84100; 84145; 84443; 84484; 85025; 86140; 87486; 87581; 87633; 93005; 94664; 96372; 96376; 97150; 97165; 99285; C9113; J1650; J2060; J3411; J3490; J7030; Q0162

== ENCOUNTER 2023-06-28 18:33 | Emergency (ER) | payer MEDICAID, SELFPAY ==
[2023-06-28 18:39] VITALS: BP 143/96; PULSE 84; RESP 16; TEMP 37.2; O2SAT 100
== END 2023-06-28 20:26 | disposition left against medical advice (07) ==
PROVIDERS: Emergency Provider Family Medicine; PCP Family Medicine
DX: Z53.21 Procedure and treatment not carried out due to patient leaving prior to being seen by health care provider (principal)

== ENCOUNTER 2023-08-17 12:40 | Emergency (ER) | payer MEDICAID, SELFPAY ==
[2023-08-17 12:52] VITALS: BP 152/97; PULSE 79; RESP 18; TEMP 37; O2SAT 100; BMI 22.6
[2023-08-17] MEDS: HYDROcodone-acetaminophen 5-325 mg Tablet 1 TAB PO (12:57)
[2023-08-17] MEDS: cephALEXin 500 mg Capsule PO (12:57)
--- NOTE | 2023-08-17 12:57 | W.ED.DENTAL ---
HPI - Dental/Oral General: Chief complaint: Dental/Oral Stated complaint: mouth pain Time Seen by Provider: 08/17/23 12:50 Source: patient Mode of arrival: ambulatory History of Present Illness: 47-year-old male states he been having left lower dental pain for the last 5 days. He has had a history of poor dentition states pain sharp in nature rates it a 6 out of 10 he has had no trismus no difficulty swallowing. Denies any fever Associated symptoms: Denies fever(s) Review of Systems Const: Denies: fever(s), chills, body aches or change in appetite ENMT: Reports: dental pain; Denies: throat pain Card: Denies: chest pain Resp: Denies: dyspnea GI: Denies: abdominal pain, nausea, vomiting or diarrhea Musc: Denies: neck pain or back pain Skin/Breast: Denies: rash Neuro: Denies: headache(s) PENDING SALE TO [facility] ED PFSH: Medical History Atrial flutter Atrial fibrillation Methamphetamine abuse -UDS positive for amphetamines/THC Bipolar 1 disorder, manic, mild Depressive disorder, not elsewhere classified Adjustment disorder with mixed disturbance of emotions and conduct Alcohol use disorder -Has known history of alcohol abuse&DT Surgical History H/O hernia repair History of appendectomy Family History Other Alcoholism /alcohol abuse Social History Quit status (tobacco/nicotine): has tried quititng Number of times tried to quit tobacco: 4 Second hand smoke exposure: Yes Alcohol intake: current Substance/Drug Use: current Current gender identity: Male Physical Exam Const: COMMON NORMALS: no acute distress, patient oriented x3 and healthy appearing HENMT: COMMON NORMALS: normocephalic and atraumatic HEAD & SCALP: normocephalic and atraumatic OTHER: Very poor dentition tenderness to the left lower molar no abscess no trismus Eye: COMMON NORMALS: Equal, round and reactive pupils present and EOMs intact bilaterally PUPIL: Yes Equal, round and reactive pupils present Neck/C-Spine: COMMON NORMALS: full ROM and supple Chest: COMMONS NORMALS: normal inspection of the chest Resp: COMMON NORMALS: normal respiratory effort and clear to auscultation bilaterally AUSCULTATION: clear to auscultation bilaterally Cardio: COMMON NORMALS: regular rate, regular rhythm and No murmurs present (Cardio) RATE: regular rate RHYTHM: regular rhythm Extremity: COMMON NORMALS: normal to inspection and full ROM Neuro: COMMON NORMALS: patient oriented x3, moves all extremities and no focal motor deficits Psych: COMMON NORMALS: mental status grossly normal, Normal thought process present and cooperative THOUGHT PROCESS: Normal thought process present Skin: COMMON NORMALS: no rashes or lesions noted and no wounds GENERAL SKIN EXAM: no rashes or lesions noted Course Vital Signs: Vital signs: Vital Signs Temperature 98.6 F 08/17/23 12:52 Pulse Rate 79 08/17/23 12:52 Respiratory Rate 18 08/17/23 12:52 Blood Pressure 152/97 08/17/23 12:52 Pulse Oximetry 100 08/17/23 12:52 Oxygen Delivery Me thod Room Air 08/17/23 12:52 MDM - Dental/Oral Medical Decision Making Patient presents here with dental pain. He has no signs of abscess or trismus we will place him on antibiotics he is follow-up with dentist he is stable for discharge return if worsening. Medical Records I reviewed the patient's medical records. No radiology studies performed this visit Discharge Plan Discharge Patient Disposition: Home Clinical Impression: Pain, dental Condition: Stable Prescriptions: New cephalexin 500 mg capsule 500 mg PO TID 7 Days Qty: 21 0RF Naprosyn 500 mg tablet 500 mg PO BID PRN (Reason: pain) Qty: 20 0RF No Action trazodone 50 mg Tablet 50 mg PO BEDTIME PRN (Reason: Sleep) 30 Days Qty: 30 1RF tamsulosin 0.4 mg Capsule 0.4 mg PO DAILY 30 Days Qty: 30 1RF pantoprazole 40 mg Tablet,Delayed Release (Dr/Ec) 40 mg PO DAILY 30 Days Qty: 30 1RF gabapentin 300 mg Capsule 300 mg PO TID 30 Days Qty: 90 1RF thiamine mononitrate (vit B1) [Vitamin B-1 (mononitrate)] 100 mg Tablet 100 mg PO DAILY 30 Days Qty: 30 1RF duloxetine 30 mg Capsule,Delayed Release(Dr/Ec) 30 mg PO DAILY 30 Days Qty: 30 1RF Latuda 20 mg Tablet 20 mg PO 1700 30 Days Qty: 30 1RF dextromethorphan-guaifenesin [Tussin DM] 10-100 mg/5 mL syrup 5 ml PO Q6H PRN (Reason: Cough) fluticasone propionate 50 mcg/actuation spray,suspension 2 spray INTRANASAL DAILY Discharge Orders: Discharge ED (Routine); Ordered 08/17/23 Ordered By: Fransisco Berry Referrals: Chayito Cali MD [Primary Care Provider] - Discharge Diet: Advance as tolerated Discharge Activity: Resume usual activity Patient Instructions: Toothache (ED) Coding Level of Care Code ED Manager Utilities for Camila Alvares
== END 2023-08-17 13:05 | disposition home or self-care (01) ==
PROVIDERS: Emergency Provider Emergency Medicine; PCP Family Medicine
DX: K08.89 Other specified disorders of teeth and supporting structures (principal); Z77.22 Contact with and (suspected) exposure to environmental tobacco smoke (acute) (chronic)
CPT/HCPCS: 99283

== ENCOUNTER 2023-08-22 15:48 | Emergency (ER) | payer MEDICAID, SELFPAY ==
[2023-08-22 15:52] VITALS: BP 126/81; PULSE 102; RESP 16; TEMP 36.4; O2SAT 98
--- NOTE | 2023-08-22 16:04 | ED_ITS ---
HPI - Dental/Oral General: Chief complaint: Dental/Oral Stated complaint: tooth pain Time Seen by Provider: 08/22/23 16:02 History of Present Illness: 47-year-old male patient comes in with d ental pain. Patient at this time is on cephalexin and naproxen for his pain. Patient appears nontoxic. No significant oral swelling is noted. Patient does have poor dentition. Review of Systems General: Reports: 10 or more systems reviewed and unremarkable except in HPI and below ENMT: Reports: dental pain PFSH ED PFSH: Medical History Atrial flutter Atrial fibrillation Methamphetamine abuse -UDS positive for amphetamines/THC Bipolar 1 disorder, manic, mild Depressive disorder, not elsewhere classified Adjustment disorder with mixed disturbance of emotions and conduct Alcohol use disorder -Has known history of alcohol abuse&DT Surgical History H/O hernia repair History of appendectomy Family History Other Alcoholism /alcohol abuse Social History Quit status (tobacco/nicotine): has tried quititng Number of times tried to quit tobacco: 4 Second hand smoke exposure: Yes Alcohol intake: current Substance/Drug Use: current Current gender identity: Male Physical Exam Const: COMMON NORMALS: alert HENMT: COMMON NORMALS: normocephalic HEAD & SCALP: normocephalic TEETH & GINGIVA: Yes poor dentition Neck/C-Spine: COMMON NORMALS: full ROM Resp: COMMON NORMALS: normal respiratory effort and clear to auscultation bilaterally AUSCULTATION: clear to auscultation bilaterally Cardio: COMMON NORMALS: regular rate and regular rhythm RATE: regular rate RHYTHM: regular rhythm GI: COMMON NORMALS: Soft to palpation and non-tender PALPATION: Yes Soft to palpation Back/Pelvis: COMMON NORMALS: thoracic and lumbar spine normal to inspection Extremity: COMMON NORMALS: normal to inspection Neuro: SENSORIUM/ORIENTATION: Yes alert Skin: COMMON NORMALS: turgor normal GENERAL SKIN EXAM: turgor normal Course Vital Signs: Vital signs: Vital Signs Temperature 97.6 F 08/22/23 15:52 Pulse Rate 102 H 08/22/23 15:52 Respiratory Rate 16 08/22/23 15:52 Blood Pressure 126/81 08/22/23 15:52 Pulse Oximetry 98 08/22/23 15:52 Oxygen Delivery Me thod Room Air 08/22/23 15:52 MDM - Dental/Oral Medical Decision Making 47-year-old male patient comes in today for complaints of dental pain. On exam patient appears nontoxic. Patient has very poor dentition with multiple caries and decay of teeth. Posterior pharynx is normal. Respirations are even lungs are clear to auscultation. Differential diagnosis includes dental abscess, dental pain, dental caries. Reviewed exam with patient recommended treatment with ketorolac for his pain. Patient was discharged home with recommendations for follow-up with dentist. No radiology studies performed this visit Discharge Plan Discharge Patient Disposition: Home Clinical Impression: Pain, dental Condition: Stable Prescriptions: New ketorolac 10 mg tablet 10 mg PO Q6H PRN (Reason: pain) 3 Days Qty: 12 0RF Rx Instructions: do not take with ibuprofen or naproxen No Action trazodone 50 mg Tablet 50 mg PO BEDTIME PRN (Reason: Sleep) 30 Days Qty: 30 1RF tamsulosin 0.4 mg Capsule 0.4 mg PO DAILY 30 Days Qty: 30 1RF pantoprazole 40 mg Tablet,Delayed Release (Dr/Ec) 40 mg PO DAILY 30 Days Qty: 30 1RF gabapentin 300 mg Capsule 300 mg PO TID 30 Days Qty: 90 1RF thiamine mononitrate (vit B1) [Vitamin B-1 (mononitrate)] 100 mg Tablet 100 mg PO DAILY 30 Days Qty: 30 1RF duloxetine 30 mg Capsule,Delayed Release(Dr/Ec) 30 mg PO DAILY 30 Days Qty: 30 1RF Latuda 20 mg Tablet 20 mg PO 1700 30 Days Qty: 30 1RF dextromethorphan-guaifenesin [Tussin DM] 10-100 mg/5 mL syrup 5 ml PO Q6H PRN (Reason: Cough) fluticasone propionate 50 mcg/actuation spray,suspension 2 spray INTRANASAL DAILY cephalexin 500 mg capsule 500 mg PO TID 7 Days Qty: 21 0RF Naprosyn 500 mg tablet 500 mg PO BID PRN (Reason: pain) Qty: 20 0RF Discharge Orders: Discharge ED (Routine); Ordered 08/22/23 Ordered By: Cleveland Ku Referrals: Chayito Cali MD [Primary Care Provider] - Discharge Diet: Usual diet Discharge Activity: Increase activity as tolerated Patient Instructions: Toothache (ED) Activity Restrictions/Additional Instructions: Stop naproxen. Use ketorolac for better pain control. Use acetaminophen for other medication to help with pain control. Use ice or heat. Follow-up with primary care for further instructions. Return to ED for new concerns. Coding Level of Care Code ED Inspector [employer] for Camila Alvares
[2023-08-22] MEDS: HYDROcodone-acetaminophen 5-325 mg Tablet 1 TAB PO (16:48)
[2023-08-22] MEDS: ketorolac 30 mg/mL INJ IM (16:48)
== END 2023-08-22 16:56 | disposition home or self-care (01) ==
PROVIDERS: Emergency Provider Nurse Practitioner Family; PCP Family Medicine
DX: K08.89 Other specified disorders of teeth and supporting structures (principal); Z87.891 Personal history of nicotine dependence
CPT/HCPCS: 96372; 99284; J1885

== ENCOUNTER 2023-09-22 09:57 | Emergency (ER) | payer MEDICAID, SELFPAY ==
[2023-09-22 09:58] VITALS: BP 127/86; PULSE 75; TEMP 36.5; O2SAT 98; BMI 20.3
--- NOTE | 2023-09-22 10:01 | ECG_ITS ---
[facility] Test Date: 2023-09-22 Pat Name: Ludin Gordon Department: Room: Gender: Male [employer] Worker: : 1975 Requested By: Dorina Machado Order Number: [id number] Jaime MD: Tylor Hill M.D. Measurements Intervals [place] Rate: 67 P: 59 IA: 147 QRS: 72 QRSD: 86 T: 75 QT: 391 QTc: 414 Interpretive Statements SINUS RHYTHM Compared to ECG 06/26/2023 09:23:05 No significant changes Electronically Signed On 09-23-2023 14:59:06 CDT by Tylor Hill M.D. [id number]
--- NOTE | 2023-09-22 10:10 | ED_ITS ---
HPI - Abdominal Pain 2 General: Chief Complaint: Abdominal Pain Stated Complaint: ABD PAIN Time Seen by Provider: 09/22/23 10:00 History of Present Illness: Patient presents with several complaints. He says that he has been having right- sided abdominal pain. He feels like there is a protrusion from his abdomen. Next he says he has been having blood in his urine for several months now. He also says that his fingers will turn blue at times. And his feet and knees will become tingly and numb. Review of Systems 2 Narrative: Constitutional symptoms: Negative except as documented in HPI. Skin symptoms: Negative except as documented in HPI. Eye symptoms: Negative except as documented in HPI. ENMT symptoms: Negative except as documented in HPI. Respiratory symptoms: Negative except as documented in HPI. Cardiovascular symptoms: Negative except as documented in HPI. Gastrointestinal symptoms: Negative except as documented in HPI. Genitourinary symptoms: Negative except as documented in HPI. Musculoskeletal symptoms: Negative except as documented in HPI. Neurologic symptoms: Negative except as documented in HPI. Psychiatric symptoms: Negative except as documented in HPI. Endocrine symptoms: Negative except as documented in HPI. PFSH ED 2 PFSH: Medical History Atrial flutter Atrial fibrillation Methamphetamine abuse -UDS positive for amphetamines/THC Bipolar 1 disorder, manic, mild Depressive disorder, not elsewhere classified Adjustment disorder with mixed disturbance of emotions and conduct Alcohol use disorder -Has known history of alcohol abuse&DT Surgical History H/O hernia repair History of appendectomy Family History Other Alcoholism /alcohol abuse Social History Quit status (tobacco/nicotine): has tried quititng Number of times tried to quit tobacco: 4 Second hand smoke exposure: Yes Alcohol intake: current Substance/Drug Use: current Current gender identity: Male Physical Exam 2 Narrative: EXAM NARRATIVE: General: Alert, no acute distress. Skin: Warm, dry. Head: Normocephalic, atraumatic. Neck: Supple, trachea midline. Eye: Extraocular movements are intact. Ears, nose, mouth and throat: mucosa moist. Cardiovascular: Regular, Normal peripheral perfusion. Respiratory: Lungs are clear to auscultation, respirations are non-labored, breath sounds are equal, Symmetrical chest wall expansion. Gastrointestinal: Soft, Nontender, Non distended, Normal bowel sounds. Musculoskeletal: Normal ROM, no deformity. Neurological: Alert and oriented, No focal neurological deficit observed. Psychiatric: Cooperative, appropriate mood & affect. Course 2 Vital Signs: Vital signs: Vital Signs Temperature 97.7 F 09/22/23 09:58 Pulse Rate 75 09/22/23 09:58 Blood Pressure 127/86 09/22/23 09:58 Pulse Oximetry 98 09/22/23 09:58 Oxygen Delivery Me thod Room Air 09/22/23 09:58 MDM - Abdominal Pain Medical Decision Making Medical decision making: Differential diagnosis including but not limited to and based on the above HPI, review of systems and physical exam: Will check hepatic panel and basic lab work along with urinalysis. Will assure no renal failure or hepatitis. Also check for blood in his urine and infection. Orders placed to evaluate differential diagnosis based on the above differential, HPI and physical exam Lab Review: Laboratory results were reviewed and interpreted by myself the emergency room physician. Lab work is normal. No leukocytosis. No anemia. BUN and creatinine are 15 and 0.8. Urine is clear of hematuria or infection. EKG: Time 10:27 AM rate 67 normal sinus rhythm, No ST-T changes, no ectopy, normal NM & QRS intervals, This was reviewed and interpreted by myself the ER physician at 10:29 AM. Acute abdominal series: chest x-ray: No acute process. No obvious infiltrates. No pneumothorax. No cardiomegaly. This was reviewed and interpreted by myself the emergency room physician Abdomen x-ray: Nonspecific bowel gas pattern. No evidence of free air or obstruction. No free air. This was reviewed and interpreted by myself the emergency room physician. I reviewed the patient's medical record. Reexamination: Patient remained stable. Vitals are normal. No increased work of breathing. No altered mental status. Lab Data 09/22/23 10:19 09/22/23 10:19 Labs/Radiology: Laboratory Results WBC 5.68 10^3/uL (3.29-11.43) 09/22/23 10:19 RBC 4.30 10^6/uL (3.85-5.65) 09/22/23 10:19 Hgb 15.50 g/dL (11.27-16.99) 09/22/23 10:19 Hct 46.7 % (37-53) 09/22/23 10:19 MCV 108.6 fl (82-101) H 09/22/23 10:19 MCH 36.0 pg (27-33) H 09/22/23 10:19 MCHC 33.2 g/dL (30-55) 09/22/23 10:19 RDW 13.1 % (12.1-15.1) 09/22/23 10:19 Plt Count 286 10^3/cmm (157-399) 09/22/23 10:19 MPV 9.1 fL (7.4-10.4) 09/22/23 10:19 Neut % (Auto) 63.0 % 09/22/23 10:19 Lymph % (Auto) 23.9 % 09/22/23 10:19 [place] % (Auto) 11.3 % 09/22/23 10:19 Eos % (Auto) 1.1 % 09/22/23 10:19 Baso % (Auto) 0.5 % 09/22/23 10:19 Neut # (Auto) 3.58 10^3/uL (1.8-7.7) 09/22/23 10:19 Lymph # (Auto) 1.4 10^3/uL (0.8-4.8) 09/22/23 10:19 Randolph # (Auto) 0.6 10^3/uL (0.2-0.9) 09/22/23 10:19 Eos # (Auto) 0.1 10^3/uL (0.0-0.8) 09/22/23 10:19 Baso # (Auto) 0.0 10^3/uL (0.0-0.1) 09/22/23 10:19 Nucleated RBC % (auto) 0 % 09/22/23 10:19 Nucleated RBCs # 0.0 /100WBC 09/22/23 10:19 Sodium 139 mmol/L (136-145) 09/22/23 10:19 Potassium 4.4 mmol/L (3.5-5.1) 09/22/23 10:19 Chloride 103 mmol/L (98-107) 09/22/23 10:19 Carbon Dioxide 28 mmol/L (22-29) 09/22/23 10:19 Anion Gap 12.4 (5-19) 09/22/23 10:19 BUN 15 mg/dL (6-20) 09/22/23 10:19 Creatinine 0.8 mg/dL (0.7-1.2) 09/22/23 10:19 GFR Calculation 103.6 mL/min (90-130) 09/22/23 10:19 Glucose 94 mg/dL (65-115) 09/22/23 10:19 Calculated Osmolality 289 mOsm/kg (285-295) 09/22/23 10:19 Calcium 9.4 mg/dL (8.5-10.5) 09/22/23 10:19 Total Bilirubin 0.4 mg/dL (0.15-1.2) 09/22/23 10:19 AST 21 U/L (0-40) 09/22/23 10:19 ALT 18 U/L (0-41) 09/22/23 10:19 Alkaline Phosphatase 78 U/L (40-130) 09/22/23 10:19 Total Protein 7.4 g/dL (6.6-8.7) 09/22/23 10:19 Albumin 4.2 g/dL (3.5-5.2) 09/22/23 10:19 Globulin 3.2 g/dL (1.3-4.6) 09/22/23 10:19 Urine Color Yellow (Yellow) 09/22/23 10:40 Urine Appearance Clear (CLEAR) 09/22/23 10:40 Urine pH 7 (5-7) 09/22/23 10:40 Ur Specific [place] 1.015 (1.005-1.030) 09/22/23 10:40 Urine Protein Neg (Negative) 09/22/23 10:40 Urine Glucose (UA) Norm (Normal) 09/22/23 10:40 Urine Ketones Negative (Negative) 09/22/23 10:40 Urine Blood Neg (Negative) 09/22/23 10:40 Urine Nitrate Negative (Negative) 09/22/23 10:40 Urine Bilirubin Neg (Negative) 09/22/23 10:40 Urine Urobilinogen Norm mg/dL (Negative) 09/22/23 10:40 Ur Leukocyte Esterase Negative (Negative) 09/22/23 10:40 Urine RBC None /hpf (0-2) 09/22/23 10:40 Urine WBC None /hpf (0-5) 09/22/23 10:40 Ur Squamous Epith Cells None /hpf (0-5) 09/22/23 10:40 Amorphous Sediment Not Reportable 09/22/23 10:40 Urine Bacteria Trace /hpf (NONE) 09/22/23 10:40 Urine Opiates Screen Negative ng/mL (Negative) 09/22/23 10:40 Ur Barbiturates Screen Negative ng/mL (Negative) 09/22/23 10:40 Ur Phencyclidine Scrn Negative ng/mL (Negative) 09/22/23 10:40 Ur Amphetamines Screen Negative ng/mL (Negative) 09/22/23 10:40 U Benzodiazepines Scrn Negative ng/mL (Negative) 09/22/23 10:40 Urine Cocaine Screen Negative ng/mL (Negative) 09/22/23 10:40 U Marijuana (THC) Screen Positive ng/mL (Negative) H 09/22/23 10:40 Ethyl Alcohol < 10 mg/dL (0-10) 09/22/23 10:19 XR interpretation done by ED provider, pending radiology final review Other Data Assessment and plan: - Discharged home - Discussed findings and plan with patient. Answered any questions. - All laboratory values were reviewed and interpreted personally by myself, the ER physician - All imaging was reviewed and interpreted personally by myself, the ER physician. - Evaluation and treatment of this problem were appropriate in the emergency setting Discharge Plan Discharge Patient Disposition: Home Clinical Impression: Abdominal pain Condition: Stable Prescriptions: No Action tamsulosin 0.4 mg Capsule 0.4 mg PO DAILY 30 Days Qty: 30 1RF pantoprazole 40 mg Tablet,Delayed Release (Dr/Ec) 40 mg PO DAILY 30 Days Qty: 30 1RF gabapentin 300 mg Capsule 300 mg PO TID 30 Days Qty: 90 1RF duloxetine 30 mg Capsule,Delayed Release(Dr/Ec) 30 mg PO DAILY 30 Days Qty: 30 1RF ibuprofen 800 mg tablet 800 mg PO TID PRN (Reason: Pain) quetiapine 200 mg tablet 200 mg PO BEDTIME paroxetine HCl 20 mg tablet 20 mg PO DAILY olanzapine 10 mg tablet,disintegrating 10 mg PO BEDTIME lurasidone 40 mg tablet 40 mg PO QPM fluticasone propionate 50 mcg/actuation spray,suspension 2 spray INTRANASAL DAILY Discharge Orders: Discharge ED (Routine); Ordered 09/22/23 Ordered By: Dorina George Referrals: Chayito Cali MD [Primary Care Provider] - (You have been screened and evaluated and felt safe for discharge. Health conditions do change or evolve sometimes and as such it is important that you follow up with your Primary Doctor to be re checked, 3-5 days is a general good time frame for follow up. You are always welcome to return to the ED for re assessment if your symptoms are worsening or you have new concerns) Discharge Diet: Usual diet Discharge Activity: Resume usual activity Patient Instructions: Abdominal Pain (ED) Coding Level of Care Code ED Out And Out [employer] Hand for Camila Alvares
[2023-09-22 10:23] LABS: Basophils % 0.5 %; Eosinophils # 0.1 10^3/uL (0.0-0.8); Eosinophils % 1.1 %; Hematocrit 46.7 % (37-53); Lymphocytes # 1.4 10^3/uL (0.8-4.8); Lymphocytes % 23.9 %; Mean Corpuscular HGB Conc 33.2 g/dL (30-55); Mean Corpuscular Volume 108.6 fl (82-101); Mean Platelet Volume 9.1 fL (7.4-10.4); Monocytes # 0.6 10^3/uL (0.2-0.9); Monocytes % 11.3 %; Neutrophils # 3.58 10^3/uL (1.8-7.7); Nucleated Red Blood Cells % 0 %; Platelet Count 286 10^3/cmm (157-399); Red Cell Distribution Width 13.1 % (12.1-15.1); White Blood Count 5.68 10^3/uL (3.29-11.43)
--- NOTE | 2023-09-22 10:28 | XRR_ITS ---
PROCEDURE INFORMATION: Exam: XR Chest Exam date and time: 09/22/2023 10:48 AM Age: 48 years old Clinical indication: Localized; Right upper quadrant (ruq); Prior surgery; Surgery date: 6+ months; Surgery type: Appendectomy; Patient HX: Ruq abdominal pain with bulging under skin x 6mo; Nausea TECHNIQUE: Imaging protocol: Radiologic exam of the chest. Views: 1 view. COMPARISON: CR XR chest 1V portable [id number] 06/22/2023 4:36 AM FINDINGS: Lungs: No focal lung consolidation. Pleural spaces: No pleural effusion. No pneumothorax. Heart/Mediastinum: Unremarkable. No cardiomegaly. Bones/joints: No acute bony abnormality. PROCEDURE INFORMATION: Exam: XR Abdomen Exam date and time: 09/22/2023 10:48 AM Age: 48 years old Clinical indication: Localized; Right upper quadrant (ruq); Prior surgery; Surgery date: 6+ months; Surgery type: Appendectomy; Patient HX: Ruq abdominal pain with bulging under skin x 6mo; Nausea TECHNIQUE: Imaging protocol: Radiologic exam of the abdomen. Views: 2 Views. Upright and supine views. COMPARISON: CR XR chest 1V portable [id number] 06/22/2023 4:36 AM FINDINGS: Gastrointestinal tract: Nonspecific bowel gas pattern. Intraperitoneal space: Normal. No free air. Bones/joints: No acute bony abnormality. XR/XR acute abdomen series [id number] IMPRESSION: No focal lung consolidation. IMPRESSION: Nonspecific bowel gas pattern.
[2023-09-22 10:40] LABS: Alanine Aminotransferase 18 U/L (0-41); Albumin Level 4.2 g/dL (3.5-5.2); Alkaline Phosphatase 78 U/L (40-130); Anion Gap 12.4 (5-19); Aspartate Amino Transferase 21 U/L (0-40); Blood Urea Nitrogen 15 mg/dL (6-20); Calcium 9.4 mg/dL (8.5-10.5); Carbon Dioxide 28 mmol/L (22-29); Chloride 103 mmol/L (98-107); Creatinine Clr Calc Pharmacy 112.3169; Globulin 3.2 g/dL (1.3-4.6); Glomerular Filtration Rate 103.6 mL/min (90-130); Glucose 94 mg/dL (65-115); Osmolality Calculated 289 mOsm/kg (285-295); Potassium 4.4 mmol/L (3.5-5.1); Sodium 139 mmol/L (136-145); Total Bilirubin 0.4 mg/dL (0.15-1.2); Total Protein 7.4 g/dL (6.6-8.7)
[2023-09-22 10:57] LABS: Add Urine Culture? No; Bacteria Urine TRACE /hpf; Bilirubin Urine Neg (Negative); Blood Urine Neg (Negative); Glucose Urine UA Norm (Normal); Ketones Urine Negative (Negative); Leukocyte Esterase Urine Negative (Negative); Nitrate Urine Negative (Negative); Protein Urine Neg (Negative); Specific Gravity, Urine 1.015 (1.005-1.030); Urine Appearance Clear (CLEAR); Urine Color Yellow (Yellow); Urobilinogen Urine Norm (Negative); pH Urine 7 (5-7)
[2023-09-22 11:04] LABS: Amphetamines Screen Urine Negative (Negative); Barbiturates Screen Urine Negative (Negative); Benzodiazepines Screen Urine Negative (Negative); Cocaine Screen Urine Negative (Negative); Opiate Screen Urine Negative (Negative); PCP Screen Urine Negative (Negative); THC Screen Urine Positive (Negative)
[2023-09-22 11:08] LABS: Alcohol Level < 10 mg/dL (0-10)
== END 2023-09-22 11:36 | disposition home or self-care (01) ==
PROVIDERS: Emergency Provider Emergency Medicine; PCP Family Medicine
DX: R10.9 Unspecified abdominal pain (principal)
CPT/HCPCS: 36415; 74022; 80053; 80306; 80307; 81001; 85025; 93005; 99285

== ENCOUNTER 2023-09-25 14:51 | Emergency (ER) | payer MEDICAID, SELFPAY ==
[2023-09-25 14:54] VITALS: BP 147/79; PULSE 113; RESP 18; TEMP 36.7; O2SAT 98
--- NOTE | 2023-09-25 15:13 | W.ED.PSYCHS ---
HPI - Psych General: Chief Complaint: Psychiatric Symptoms Stated Complaint: SI Time Seen by Provider: 09/25/23 15:13 Source: patient Mode of arrival: ambulatory History of Present Illness: 48-year-old male with a history of alcohol abuse presents to the emergency room acutely intoxicated. Initially checked in and said he was going to hurt his and was thinking about hurting himself. He stated his during the nurses triage evaluation. And repeated several times to me. He is very confrontational and extremely angry we were eventually able to redirect him and get him to a room. He states quieted down after a bed and has been sleeping for a time. He has been in the emergency room and in the [facility] multiple times in the past he will frequently express a desire t pursue sobriety or pursue treatment for his mental health issues but then will change his mind and want to leave and resume his previous behaviors. He has not done anything to advance lethality to this point. MD complaint: suicidal ideation Exacerbating factors: alcohol Associated symptoms: Reports homicidal ideation and suicidal ideation If self harm: admits thoughts of self harm Review of Systems Card: Reports: chest pain GI: Reports: abdominal pain Psych: Reports: suicidal ideation and homicidal ideation [facility] ED PFSH: Medical History (Updated 10/04/23 @ 00:01 by JESUS Dent) Psychiatric care Atrial flutter Atrial fibrillation Methamphetamine abuse -UDS positive for amphetamines/THC Bipolar 1 disorder, manic, mild Depressive disorder, not elsewhere classified Adjustment disorder with mixed disturbance of emotions and conduct Alcohol use disorder -Has known history of alcohol abuse&DT Surgical History H/O hernia repair History of appendectomy Family History Other Alcoholism /alcohol abuse Social History Quit status (tobacco/nicotine): has tried quititng Number of times tried to quit tobacco: 4 Second hand smoke exposure: Yes Alcohol intake: current Substance/Drug Use: current Current gender identity: Male Physical Exam HENMT: COMMON NORMALS: normocephalic, atraumatic and hearing grossly normal bilaterally HEAD & SCALP: normocephalic and atraumatic Resp: COMMON NORMALS: normal respiratory effort, No retractions, No use of accessory muscles and clear to auscultation bilaterally AUSCULTATION: clear to auscultation bilaterally Cardio: COMMON NORMALS: regular rate, regular rhythm and No murmurs present (Cardio) RATE: regular rate RHYTHM: regular rhythm GI: COMMON NORMALS: Soft to palpation and No hepatosplenomegaly present AUSCULTATION: Yes normoactive bowel sounds PALPATION: Yes Soft to palpation, No Tenderness to palpation present (GI), No Guarding due to palpation present (GI) and Yes No hepatosplenomegaly present Extremity: COMMON NORMALS: normal to inspection, capillary refill normal, no clubbing, cyanosis or edema, no calf tenderness and no pedal edema Skin: COMMON NORMALS: no rashes or lesions noted GENERAL SKIN EXAM: no rashes or lesions noted Course Vital Signs: Vital signs: Vital Signs Temperature 98.1 F 09/25/23 18:06 Pulse Rate 78 09/25/23 18:06 Respiratory Rate 18 09/25/23 18:06 Blood Pressure 147/79 09/25/23 18:06 Pulse Oximetry 97 09/25/23 18:06 Oxygen Delivery Me thod Room Air 09/25/23 17:25 [facility] - Psych Medical Decision Making Patient acutely intoxicated. He has presented in this fashion multiple times usually when he is intoxicated he acts out quite a bit makes a lot of threats regarding harming himself and others. As he joel up he retracts to these. He has been admitted multiple times Dr. Em is seen him several times made arrangements for him to seek treatment he will actively express wishes to follow through however soon as he joel up he change his mind and wishes to go home. I discussed Dr. Em given the fact that he is not advancing lethality Dr. Em does not feel at this point he needs to be admitted advise that we monitor him for a time which we did. As patient sobered up he retracted all of the statements expressed desire to leave Dr. Em does not feel that admission to the hospital at this time will be beneficial given patient's history. Strongly encourage patient to seek assistance for his substance abuse. The character of response would indicate he has no desire to do so Medical Records I reviewed the patient's medical records. Lab Data I reviewed the patient's lab results. 09/25/23 16:34 09/25/23 16:34 Laboratory Results WBC 6.63 10^3/uL (3.29-11.43) 09/25/23 16:34 RBC 3.94 10^6/uL (3.85-5.65) 09/25/23 16:34 Hgb 14.10 g/dL (11.27-16.99) 09/25/23 16:34 Hct 42.5 % (37-53) 09/25/23 16:34 MCV 107.9 fl (82-101) H 09/25/23 16:34 MCH 35.8 pg (27-33) H 09/25/23 16:34 MCHC 33.2 g/dL (30-55) 09/25/23 16:34 RDW 12.9 % (12.1-15.1) 09/25/23 16:34 Plt Count 264 10^3/cmm (157-399) 09/25/23 16:34 MPV 9.3 fL (7.4-10.4) 09/25/23 16:34 Neut % (Auto) 60.2 % 09/25/23 16:34 Lymph % (Auto) 29.0 % 09/25/23 16:34 [place] % (Auto) 9.4 % 09/25/23 16:34 Eos % (Auto) 1.1 % 09/25/23 16:34 Baso % (Auto) 0.3 % 09/25/23 16:34 Neut # (Auto) 4.00 10^3/uL (1.8-7.7) 09/25/23 16:34 Lymph # (Auto) 1.9 10^3/uL (0.8-4.8) 09/25/23 16:34 [place] # (Auto) 0.6 10^3/uL (0.2-0.9) 09/25/23 16:34 Eos # (Auto) 0.1 10^3/uL (0.0-0.8) 09/25/23 16:34 Baso # (Auto) 0.0 10^3/uL (0.0-0.1) 09/25/23 16:34 Nucleated RBC % (auto) 0 % 09/25/23 16:34 Nucleated RBCs # 0.0 /100WBC 09/25/23 16:34 Sodium 147 mmol/L (136-145) H 09/25/23 16:34 Potassium 3.7 mmol/L (3.5-5.1) 09/25/23 16:34 Chloride 110 mmol/L (98-107) H 09/25/23 16:34 Carbon Dioxide 26 mmol/L (22-29) 09/25/23 16:34 Anion Gap 14.7 (5-19) 09/25/23 16:34 BUN 19 mg/dL (6-20) 09/25/23 16:34 Creatinine 1.1 mg/dL (0.7-1.2) 09/25/23 16:34 GFR Calculation 71.8 mL/min (90-130) L 09/25/23 16:34 Glucose 98 mg/dL (65-115) 09/25/23 16:34 Calculated Osmolality 306 mOsm/kg (285-295) H 09/25/23 16:34 Calcium 7.8 mg/dL (8.5-10.5) L 09/25/23 16:34 Total Bilirubin 0.2 mg/dL (0.15-1.2) 09/25/23 16:34 AST 32 U/L (0-40) 09/25/23 16:34 ALT 21 U/L (0-41) 09/25/23 16:34 Alkaline Phosphatase 75 U/L (40-130) 09/25/23 16:34 Total Protein 6.5 g/dL (6.6-8.7) L 09/25/23 16:34 Albumin 4.0 g/dL (3.5-5.2) 09/25/23 16:34 Globulin 2.5 g/dL (1.3-4.6) 09/25/23 16:34 Salicylates 0.9 mg/dL (3-10) L 09/25/23 16:34 Acetaminophen < 5.0 ug/mL (10-30) L 09/25/23 16:34 Ethyl Alcohol 264 mg/dL (0-10) H 09/25/23 16:34 No radiology studies performed this visit Discharge Plan Discharge Patient Disposition: Home Clinical Impression: Alcohol use disorder, severe, dependence, Adjustment disorder with mixed disturbance of emotions and conduct Condition: Stable Prescriptions: No Action tamsulosin 0.4 mg Capsule 0.4 mg PO DAILY 30 Days Qty: 30 1RF pantoprazole 40 mg Tablet,Delayed Release (Dr/Ec) 40 mg PO DAILY 30 Days Qty: 30 1RF gabapentin 300 mg Capsule 300 mg PO TID 30 Days Qty: 90 1RF duloxetine 30 mg Capsule,Delayed Release(Dr/Ec) 30 mg PO DAILY 30 Days Qty: 30 1RF ibuprofen 800 mg tablet 800 mg PO TID PRN (Reason: Pain) quetiapine 200 mg tablet 200 mg PO BEDTIME paroxetine HCl 20 mg tablet 20 mg PO DAILY olanzapine 10 mg tablet,disintegrating 10 mg PO BEDTIME lurasidone 40 mg tablet 40 mg PO QPM Naprosyn 500 mg tablet 500 mg PO BID PRN (Reason: pain) Qty: 20 0RF fluticasone propionate 50 mcg/actuation spray,suspension 2 spray INTRANASAL DAILY amoxicillin-pot clavulanate 875-125 mg tablet 1 tab PO BID 10 Days Qty: 20 0RF Naprosyn 500 mg tablet 500 mg PO Q8H PRN (Reason: pain) Qty: 60 0RF Discharge Orders: Discharge ED (Routine); Ordered 09/25/23 Ordered By: Cruzito Morocho Referrals: Chayito Cali MD [Primary Care Provider] - Discharge Diet: Usual diet Discharge Activity: Increase activity as tolerated Patient Instructions: Alcohol Use Disorder (ED), Opioid Safety, Pain Management Activity Restrictions/Additional Instructions: Thank you for choosing [facility] for your healthcare needs today. Please realize this is an emergency room and that we are providing you with a medical screening exam and this may not be complete and all inclusive of all the testing and or work up that you may need to determine your ailment or severity of your illness. It is very important that you follow up as instructed or that you return to the Emergency Department should you have concerns or if your condition changes or worsens in any way. Coding Level of Care Code ED Manager Freelance for Camila Alvares
[2023-09-25 15:21] VITALS: PULSE 95; O2SAT 94
--- NOTE | 2023-09-25 15:28 | PC.PHAR ---
MEDICATIONS ENTERED ARE FROM WHAT EXT SHOWS HAS BEEN FILLED RECENTLY-NOTES ARE MADE IN THE PHARMACY COMMENTS WITH LAST FILLED DATES
[2023-09-25 17:12] LABS: Basophils % 0.3 %; Eosinophils # 0.1 10^3/uL (0.0-0.8); Eosinophils % 1.1 %; Hematocrit 42.5 % (37-53); Lymphocytes # 1.9 10^3/uL (0.8-4.8); Mean Corpuscular HGB Conc 33.2 g/dL (30-55); Mean Corpuscular Hemoglobin 35.8 pg (27-33); Mean Corpuscular Volume 107.9 fl (82-101); Mean Platelet Volume 9.3 fL (7.4-10.4); Monocytes # 0.6 10^3/uL (0.2-0.9); Monocytes % 9.4 %; Neutrophils % 60.2 %; Nucleated Red Blood Cells % 0 %; Platelet Count 264 10^3/cmm (157-399); Red Blood Count 3.94 10^6/uL (3.85-5.65); Red Cell Distribution Width 12.9 % (12.1-15.1); White Blood Count 6.63 10^3/uL (3.29-11.43)
[2023-09-25 17:25] VITALS: PULSE 78; O2SAT 97
[2023-09-25 17:25] LABS: Alanine Aminotransferase 21 U/L (0-41); Alcohol Level 264 mg/dL (0-10); Alkaline Phosphatase 75 U/L (40-130); Anion Gap 14.7 (5-19); Aspartate Amino Transferase 32 U/L (0-40); Blood Urea Nitrogen 19 mg/dL (6-20); Calcium 7.8 mg/dL (8.5-10.5); Carbon Dioxide 26 mmol/L (22-29); Chloride 110 mmol/L (98-107); Creatinine Clr Calc Pharmacy 87.6506; Globulin 2.5 g/dL (1.3-4.6); Glomerular Filtration Rate 71.8 mL/min (90-130); Glucose 98 mg/dL (65-115); Osmolality Calculated 306 mOsm/kg (285-295); Potassium 3.7 mmol/L (3.5-5.1); Salicylate 0.9 mg/dL (3-10); Sodium 147 mmol/L (136-145); Total Bilirubin 0.2 mg/dL (0.15-1.2); Total Protein 6.5 g/dL (6.6-8.7)
[2023-09-25 17:28] LABS: Acetaminophen < 5.0 ug/mL (10-30)
--- NOTE | 2023-09-25 18:04 | PC.NURSE ---
PATIENT STATES HE WAS INTOXICATED EARLIER WHEN HE MADE SI AND HI COMMENTS AND HE DOES NOT FEEL THAT WAY NOW THAT HE IS SOBER. PATIENT STATES HE WOULD LIKE TO BE DISCHARGED.
[2023-09-25 18:06] VITALS: BP 147/79; PULSE 78; RESP 18; TEMP 36.7; O2SAT 97
== END 2023-09-25 18:08 | disposition home or self-care (01) ==
PROVIDERS: Emergency Provider Family Medicine; PCP Family Medicine
DX: F43.25 Adjustment disorder with mixed disturbance of emotions and conduct (principal); F10.20 Alcohol dependence, uncomplicated; Z77.22 Contact with and (suspected) exposure to environmental tobacco smoke (acute) (chronic)
CPT/HCPCS: 36415; 80053; 80307; 85025; 99283

== ENCOUNTER 2023-09-26 22:02 | Emergency (ER) | payer MEDICAID, SELFPAY ==
[2023-09-26 22:15] VITALS: BP 124/87; PULSE 86; RESP 16; TEMP 36.7; O2SAT 96
--- NOTE | 2023-09-26 22:18 | ECG_ITS ---
[facility] Test Date: 2023-09-26 Pat Name: Ludin Gordon Department: Room: Gender: Male Call Center Manager: : 1975 Requested By: Cleveland Pozo Order Number: [id number] Yeni MD: Jesus Tellez M.D. Measurements Intervals [place] Rate: 80 P: 69 MD: 143 QRS: 78 QRSD: 89 T: 64 QT: 360 QTc: 416 Interpretive Statements SINUS RHYTHM Compared to ECG 09/22/2023 10:27:35 No significant changes Electronically Signed On 09-28-2023 19:16:57 CDT by Jesus Tellez M.D. [id number]
--- NOTE | 2023-09-26 22:24 | ED_ITS ---
HPI - Chest Pain 2 General: Chief Complaint: Chest Pain Stated Complaint: Chest Pain Time Seen by Provider: 09/26/23 22:15 History of Present Illness: Patient was brought in by EMS for concerns of chest pain and headache. Patient was reported to have used some nitro at home and did EMS arrived and gave him 1 nitro along with 4 baby aspirin. Patient reports that he feels better now. Patient does endorse alcohol use. Patient also uses tobacco routinely. Patient denies marijuana or methamphetamine use. Patient has a chronic history of low back pain., Alcoholism, depression, and BPH. Review of Systems 2 General: Reports: 10 or more systems reviewed and unremarkable except in HPI and below Card: Reports: chest pain Neuro: Reports: headache(s) PFS ED 2 PFSH: Medical History Atrial flutter Atrial fibrillation Methamphetamine abuse -UDS positive for amphetamines/THC Bipolar 1 disorder, manic, mild Depressive disorder, not elsewhere classified Adjustment disorder with mixed disturbance of emotions and conduct Alcohol use disorder -Has known history of alcohol abuse&DT Surgical History H/O hernia repair History of appendectomy Family History Other Alcoholism /alcohol abuse Social History Quit status (tobacco/nicotine): has tried quititng Number of times tried to quit tobacco: 4 Second hand smoke exposure: Yes Alcohol intake: current Substance/Drug Use: current Current gender identity: Male Physical Exam 2 Const: COMMON NORMALS: alert HENMT: COMMON NORMALS: normocephalic and atraumatic HEAD & SCALP: n ormocephalic and atraumatic Neck/C-Spine: COMMON NORMALS: full ROM Resp: COMMON NORMALS: normal respiratory effort and clear to auscultation bilaterally AUSCULTATION: clear to auscultation bilaterally Cardio: COMMON NORMALS: regular rate and regular rhythm RATE: regular rate RHYTHM: regular rhythm GI: COMMON NORMALS: Soft to palpation and non-tender PALPATION: Yes Soft to palpation Back/Pelvis: COMMON NORMALS: thoracic and lumbar spine normal to inspection Extremity: COMMON NORMALS: normal to inspection Neuro: SENSORIUM/ORIENTATION: Yes alert Skin: COMMON NORMALS: turgor normal GENERAL SKIN EXAM: turgor normal Course 2 Vital Signs: Vital signs: Vital Signs Temperature 98.0 F 09/26/23 22:15 Pulse Rate 85 09/26/23 22:55 Respiratory Rate 22 H 09/26/23 22:55 Blood Pressure 98/49 09/26/23 22:55 Pulse Oximetry 98 09/26/23 22:55 Oxygen Delivery Me thod Room Air 09/26/23 22:15 MDM - Chest Pain Medical Decision Making Patient comes into the ER today for complaints of chest pain and headache. Patient appears nontoxic. Patient appears in no acute distress. Respirations are even lungs are clear to auscultation. Skin is warm and dry and no edema is noted. Abdomen soft nontender. Differential diagnosis includes but not limited to gastritis secondary to alcohol consumption, gastroesophageal reflux, ACS unlikely, pneumonia unlikely, electrolyte imbalance, alcohol intoxication. CBC was unremarkable. CMP was normal. Alcohol level was 148. Troponin was less than 10. EKG was normal sinus rhythm. Reviewed exam with patient with recommendations for follow-up with primary care return to the ER for new concerns. Patient was discharged to law enforcement custody. Lab Data 09/26/23 22:20 09/26/23 23:00 Laboratory Results WBC 7.49 10^3/uL (3.29-11.43) 09/26/23 22:20 RBC 4.13 10^6/uL (3.85-5.65) 09/26/23 22:20 Hgb 14.70 g/dL (11.27-16.99) 09/26/23 22:20 Hct 44.0 % (37-53) 09/26/23 22:20 MCV 106.5 fl (82-101) H 09/26/23 22:20 MCH 35.6 pg (27-33) H 09/26/23 22:20 MCHC 33.4 g/dL (30-55) 09/26/23 22:20 RDW 13.1 % (12.1-15.1) 09/26/23 22:20 Plt Count 273 10^3/cmm (157-399) 09/26/23 22:20 MPV 10.5 fL (7.4-10.4) H 09/26/23 22:20 Neut % (Auto) 48.4 % 09/26/23 22:20 Lymph % (Auto) 38.7 % 09/26/23 22:20 [place] % (Auto) 10.4 % 09/26/23 22:20 Eos % (Auto) 1.9 % 09/26/23 22:20 Baso % (Auto) 0.3 % 09/26/23 22:20 Neut # (Auto) 3.63 10^3/uL (1.8-7.7) 09/26/23 22:20 Lymph # (Auto) 2.9 10^3/uL (0.8-4.8) 09/26/23 22:20 [place] # (Auto) 0.8 10^3/uL (0.2-0.9) 09/26/23 22:20 Eos # (Auto) 0.1 10^3/uL (0.0-0.8) 09/26/23 22:20 Baso # (Auto) 0.0 10^3/uL (0.0-0.1) 09/26/23 22:20 Nucleated RBC % (auto) 0 % 09/26/23 22:20 Nucleated RBCs # 0.0 /100WBC 09/26/23 22:20 Sodium 140 mmol/L (136-145) 09/26/23 23:00 Potassium 3.7 mmol/L (3.5-5.1) 09/26/23 23:00 Chloride 107 mmol/L (98-107) 09/26/23 23:00 Carbon Dioxide 25 mmol/L (22-29) 09/26/23 23:00 Anion Gap 11.7 (5-19) 09/26/23 23:00 BUN 16 mg/dL (6-20) 09/26/23 23:00 Creatinine 0.7 mg/dL (0.7-1.2) 09/26/23 23:00 GFR Calculation 120.9 mL/min (90-130) 09/26/23 23:00 Glucose 84 mg/dL (65-115) 09/26/23 23:00 Calculated Osmolality 290 mOsm/kg (285-295) 09/26/23 23:00 Calcium 8.1 mg/dL (8.5-10.5) L 09/26/23 23:00 Total Bilirubin 0.2 mg/dL (0.15-1.2) 09/26/23 23:00 AST 24 U/L (0-40) 09/26/23 23:00 ALT 20 U/L (0-41) 09/26/23 23:00 Alkaline Phosphatase 72 U/L (40-130) 09/26/23 23:00 Troponin T Baseline 10 ng/L (0-15) 09/26/23 23:00 Total Protein 6.1 g/dL (6.6-8.7) L 09/26/23 23:00 Albumin 3.7 g/dL (3.5-5.2) 09/26/23 23:00 Globulin 2.4 g/dL (1.3-4.6) 09/26/23 23:00 Lipase 31 U/L (13-60) 09/26/23 23:00 Ethyl Alcohol 148 mg/dL (0-10) H 09/26/23 23:00 No radiology studies performed this visit EKG Data EKG 1: I personally reviewed and interpreted this EKG as follows: EKG interpretation date: 09/26/23 EKG interpretation time: 22:27 Prior EKG tracings: not available for review Interpretation: EKG shows a sinus rhythm with a regular rate [address] elevation or ectopy is noted. No prior exam was available for comparison. Computer generated interpretation: Sinus rhythm, normal EKG, unconfirmed report. Discharge Plan Discharge Patient Disposition: Home Clinical Impression: Chest pain due to gastrointestinal reflux disease Headache Qualifiers: Headache type: unspecified Headache chronicity pattern: acute headache I ntractability: not intractable Qualified Code(s): R51.9 - Headache, unspecified Condition: Stable Prescriptions: No Action tamsulosin 0.4 mg Capsule 0.4 mg PO DAILY 30 Days Qty: 30 1RF pantoprazole 40 mg Tablet,Delayed Release (Dr/Ec) 40 mg PO DAILY 30 Days Qty: 30 1RF gabapentin 300 mg Capsule 300 mg PO TID 30 Days Qty: 90 1RF duloxetine 30 mg Capsule,Delayed Release(Dr/Ec) 30 mg PO DAILY 30 Days Qty: 30 1RF ibuprofen 800 mg tablet 800 mg PO TID PRN (Reason: Pain) quetiapine 200 mg tablet 200 mg PO BEDTIME paroxetine HCl 20 mg tablet 20 mg PO DAILY olanzapine 10 mg tablet,disintegrating 10 mg PO BEDTIME lurasidone 40 mg tablet 40 mg PO QPM fluticasone propionate 50 mcg/actuation spray,suspension 2 spray INTRANASAL DAILY Discharge Orders: Discharge ED (Routine); Ordered 09/26/23 Ordered By: Cleveland Ku Referrals: Chayito Cali MD [Primary Care Provider] - Discharge Diet: Usual diet Discharge Activity: Increase activity as tolerated Patient Instructions: Chest Pain (ED) Activity Restrictions/Additional Instructions: Try to limit drinks to 1 alcoholic beverage a day. Drink plenty of water at least 2 L a day. Healthy diet and exercise. Follow-up with primary care for further instructions. Return to ED for new concerns. Stand Alone Forms: Work/School Release Coding Level of Care Code ED Process Owner for Camila Alvares
[2023-09-26 22:35] LABS: Basophils % 0.3 %; Eosinophils # 0.1 10^3/uL (0.0-0.8); Eosinophils % 1.9 %; Lymphocytes # 2.9 10^3/uL (0.8-4.8); Lymphocytes % 38.7 %; Mean Corpuscular HGB Conc 33.4 g/dL (30-55); Mean Corpuscular Hemoglobin 35.6 pg (27-33); Mean Corpuscular Volume 106.5 fl (82-101); Mean Platelet Volume 10.5 fL (7.4-10.4); Monocytes # 0.8 10^3/uL (0.2-0.9); Monocytes % 10.4 %; Neutrophils # 3.63 10^3/uL (1.8-7.7); Neutrophils % 48.4 %; Nucleated Red Blood Cells % 0 %; Platelet Count 273 10^3/cmm (157-399); Red Blood Count 4.13 10^6/uL (3.85-5.65); Red Cell Distribution Width 13.1 % (12.1-15.1); White Blood Count 7.49 10^3/uL (3.29-11.43)
[2023-09-26] MEDS: pantoprazole 40 mg SDV IVP (22:37)
[2023-09-26] MEDS: diphenhydrAMINE 50 mg/mL SDV 1mL 12.5 MG IVP (22:37)
[2023-09-26] MEDS: metoclopramide 5 mg/mL SDV 2 mL 10 MG IVP (22:37)
[2023-09-26] MEDS: sodium chloride 0.9% 1,000 ML 999 ML IV (22:38)
[2023-09-26 22:55] VITALS: BP 98/49; PULSE 85; RESP 22; O2SAT 98
[2023-09-26 23:25] LABS: Troponin(5th) Baseline 10 ng/L (0-15)
[2023-09-26 23:28] LABS: Alanine Aminotransferase 20 U/L (0-41); Albumin Level 3.7 g/dL (3.5-5.2); Alcohol Level 148 mg/dL (0-10); Alkaline Phosphatase 72 U/L (40-130); Anion Gap 11.7 (5-19); Aspartate Amino Transferase 24 U/L (0-40); Blood Urea Nitrogen 16 mg/dL (6-20); Calcium 8.1 mg/dL (8.5-10.5); Carbon Dioxide 25 mmol/L (22-29); Chloride 107 mmol/L (98-107); Creatinine Clr Calc Pharmacy 127.6927; Globulin 2.4 g/dL (1.3-4.6); Glomerular Filtration Rate 120.9 mL/min (90-130); Glucose 84 mg/dL (65-115); Lipase 31 U/L (13-60); Osmolality Calculated 290 mOsm/kg (285-295); Potassium 3.7 mmol/L (3.5-5.1); Sodium 140 mmol/L (136-145); Total Bilirubin 0.2 mg/dL (0.15-1.2); Total Protein 6.1 g/dL (6.6-8.7)
[2023-09-26 23:42] VITALS: BP 125/68; PULSE 90; RESP 16; O2SAT 98
== END 2023-09-26 23:46 | disposition home or self-care (01) ==
PROVIDERS: Emergency Provider Nurse Practitioner Family; PCP Family Medicine
DX: K21.9 Gastro-esophageal reflux disease without esophagitis (principal); R51.9 Headache, unspecified; R07.89 Other chest pain; Z77.22 Contact with and (suspected) exposure to environmental tobacco smoke (acute) (chronic)
CPT/HCPCS: 36415; 80053; 80307; 83690; 84484; 85025; 93005; 96374; 96375; 99284; C9113; J1200; J2765; J7030

== ENCOUNTER 2023-09-28 21:14 | Emergency (ER) | payer MEDICAID, SELFPAY ==
[2023-09-28 21:20] VITALS: BP 140/91; PULSE 106; RESP 17; TEMP 36.6; O2SAT 94; BMI 21.5
[2023-09-28] MEDS: amoxicillin-clav 875-125 mg Tablet 1 TAB PO (21:49)
[2023-09-28] MEDS: dexamethasone 10 mg/mL INJ 8 MG IM (21:49)
[2023-09-28] MEDS: ketorolac 60 mg/2 mL INJ IM (21:49)
--- NOTE | 2023-09-28 21:49 | W.ED.DENTAL ---
Documented by User: [email or web address] Flood 09/28/23 21:53 HPI - Dental/Oral General: Chief complaint: Dental/Oral Stated complaint: tooth pain Time Seen by Provider: 09/28/23 21:30 Source: patient Mode of arrival: ambulatory Limitations: no limitations History of Present Illness: Patient is a 48-year-old male presenting to the emergency department complaining of dental pain for the past few weeks. Patient has been trying to get into a dentist but does not have an appointment scheduled for few weeks. Has been trying ibuprofen and Tylenol with minimal relief. He denies any other symptoms other than the pain, stating that it is just too unbearable for him. No fevers, drainage, bleeding, or respiratory complaints. He states he was prescribed amoxicillin about a month ago but did not finish this because he started to feel better, and he thinks the infection is back. Associated symptoms: Denies ear or mastoid pain or fever(s) Review of Systems General: Reports: 10 or more systems reviewed and unremarkable except in HPI and below Const: Denies: fever(s), chills or fatigue Eyes: Denies: change in vision ENMT: Reports: dental pain; Denies: throat pain, ear or mastoid pain or nasal discharge Card: Denies: chest pain, palpitations, swelling of feet/ankles or lightheadedness Resp: Denies: dyspnea, productive cough or wheezing GI: Denies: abdominal pain, nausea, vomiting, diarrhea or constipation : Denies: flank pain, difficulty urinating, dysuria or urinary frequency Musc: Denies: neck pain, back pain or joint pain Skin/Breast: Denies: rash Neuro: Denies: headache(s), numbness in extremities or weakness in extremities PFS ED PFSH: Medical History (Updated 09/30/23 @ 16:05 by Jeanie Schwarz) Psychiatric care Atrial flutter Atrial fibrillation Methamphetamine abuse -UDS positive for amphetamines/THC Bipolar 1 disorder, manic, mild Depressive disorder, not elsewhere classified Adjustment disorder with mixed disturbance of emotions and conduct Alcohol use disorder -Has known history of alcohol abuse&DT Surgical History H/O hernia repair History of appendectomy Family History Other Alcoholism /alcohol abuse Social History Quit status (tobacco/nicotine): has tried quititng Number of times tried to quit tobacco: 4 Second hand smoke exposure: Yes Alcohol intake: current Substance/Drug Use: current Current gender identity: Male Physical Exam Const: COMMON NORMALS: no acute distress and healthy appearing GENERAL APPEARANCE: cooperative, comfortable and well developed HENMT: COMMON NORMALS: normocephalic, atraumatic, hearing grossly normal bilaterally, external ears normal, Normal external nose present and Normal nasal mucous membranes and turbinates present HEAD & SCALP: normal to inspection, normocephalic and atraumatic FACE & SINUS: normal facial exam and sinuses nontender NOSE: Normal external nose present, Normal nares present, No nasal polyps present and Normal nasal mucous membranes and turbinates present EXTERNAL EAR: Yes external ears normal MOUTH: Normal oral and palatal mucosa present TEETH & GINGIVA: Yes caries, Yes multiple restorations and Yes poor dentition THROAT: posterior oropharynx normal and tonsils normal Eye: COMMON NORMALS: EOMs intact bilaterally, conjunctivae normal and normal visual cloud by confrontation GENERAL EYE: appearance normal, both eyes and all related structures CONJUNCTIVA: Yes conjunctivae normal Neck/C-Spine: COMMON NORMALS: full ROM, no lymphadenopathy, supple and no meningeal signs GENERAL: Yes normal visual inspection Chest: COMMONS NORMALS: normal inspection of the chest Resp: COMMON NORMALS: normal respiratory effort and clear to auscultation bilaterally EFFORT & INSPECTION: Yes able to speak in complete sentences AUSCULTATION: clear to auscultation bilaterally Cardio: COMMON NORMALS: regular rate, regular rhythm, S1 normal heart sound present and S2 normal heart sound present RATE: regular rate RHYTHM: regular rhythm HEART SOUNDS: S1 normal heart sound present, S2 normal heart sound present, no gallops, no murmurs and no rubs Extremity: COMMON NORMALS: normal to inspection, full ROM and capillary refill normal Neuro: MENINGEAL SIGNS: Yes no meningeal signs Skin: COMMON NORMALS: no rashes or lesions noted GENERAL SKIN EXAM: no rashes or lesions noted Course Vital Signs: Vital signs: Vital Signs Temperature 97.8 F 09/28/23 21:55 Pulse Rate 106 H 09/28/23 21:55 Respiratory Rate 17 04/27/24 21:55 Blood Pressure 140/91 04/27/24 21:55 Pulse Oximetry 94 09/28/23 21:55 Oxygen Delivery Me thod Room Air 09/28/23 21:20 MDM - Dental/Oral Medical Decision Making Patient arrives with dental pain, recently was given antibiotics but did not finish because he started to feel better. He has a dentist appointment coming up but states he wants pain control. Will give him a steroid shot and shot of Toradol here in the ED, and start him on an antibiotic regimen again for presumed dental abscess. He will follow-up with dentist as planned. Return precautions given. Patient endorses understanding of this plan. No radiology studies performed this visit Discharge Plan Discharge Patient Disposition: Home Clinical Impression: Dental abscess Condition: Stable Prescriptions: New amoxicillin-pot clavulanate 875-125 mg tablet 1 tab PO BID 10 Days Qty: 20 0RF Naprosyn 500 mg tablet 500 mg PO Q8H PRN (Reason: pain) Qty: 60 0RF No Action tamsulosin 0.4 mg Capsule 0.4 mg PO DAILY 30 Days Qty: 30 1RF pantoprazole 40 mg Tablet,Delayed Release (Dr/Ec) 40 mg PO DAILY 30 Days Qty: 30 1RF gabapentin 300 mg Capsule 300 mg PO TID 30 Days Qty: 90 1RF duloxetine 30 mg Capsule,Delayed Release(Dr/Ec) 30 mg PO DAILY 30 Days Qty: 30 1RF ibuprofen 800 mg tablet 800 mg PO TID PRN (Reason: Pain) quetiapine 200 mg tablet 200 mg PO BEDTIME paroxetine HCl 20 mg tablet 20 mg PO DAILY olanzapine 10 mg tablet,disintegrating 10 mg PO BEDTIME lurasidone 40 mg tablet 40 mg PO QPM Naprosyn 500 mg tablet 500 mg PO BID PRN (Reason: pain) Qty: 20 0RF fluticasone propionate 50 mcg/actuation spray,suspension 2 spray INTRANASAL DAILY Discharge Orders: Discharge ED (Routine); Ordered 09/28/23 Ordered By: Anthony Springer Referrals: Chayito aCli MD [Primary Care Provider] - Discharge Diet: Usual diet Discharge Activity: Increase activity as tolerated Patient Instructions: Dental Abscess (ED), Pain Management Activity Restrictions/Additional Instructions: Pain medications as needed. Take Augmentin. Follow-up with dentist as planned. Return with any new or concerning symptoms. Coding Level of Care Code ED [employer] for [employer] Documented by User: Cruzito Morocho DO 10/02/23 09:41 HPI - Dental/Oral General: Chief complaint: Dental/Oral Stated complaint: tooth pain Time Seen by Provider: 09/28/23 21:30 [facility] ED PFSH: Medical History (Updated 09/30/23 @ 16:05 by Jeanie Schwarz) Psychiatric care Atrial flutter Atrial fibrillation Methamphetamine abuse -UDS positive for amphetamines/THC Bipolar 1 disorder, manic, mild Depressive disorder, not elsewhere classified Adjustment disorder with mixed disturbance of emotions and conduct Alcohol use disorder -Has known history of alcohol abuse&DT Surgical History H/O hernia repair History of appendectomy Family History Other Alcoholism /alcohol abuse Social History Quit status (tobacco/nicotine): has tried quititng Number of times tried to quit tobacco: 4 Second hand smoke exposure: Yes Alcohol intake: current Substance/Drug Use: current Current gender identity: Male Course Vital Signs: Vital signs: Vital Signs Temperature 97.8 F 09/28/23 21:55 Pulse Rate 106 H 09/28/23 21:55 Respiratory Rate 17 09/28/23 21:55 Blood Pressure 140/91 09/28/23 21:55 Pulse Oximetry 94 09/28/23 21:55 Oxygen Delivery Me thod Room Air 09/28/23 21:20 MDM - Dental/Oral Medical Decision Making Patient arrives with dental pain, recently was given antibiotics but did not finish because he started to feel better. He has a dentist appointment coming up but states he wants pain control. Will give him a steroid shot and shot of Toradol here in the ED, and start him on an antibiotic regimen again for presumed dental abscess. He will follow-up with dentist as planned. Return precautions given. Patient endorses understanding of this plan. Chart reviewed Discharge Plan Discharge Patient Disposition: Home Clinical Impression: Dental abscess Condition: Stable Prescriptions: New amoxicillin-pot clavulanate 875-125 mg tablet 1 tab PO BID 10 Days Qty: 20 0RF Naprosyn 500 mg tablet 500 mg PO Q8H PRN (Reason: pain) Qty: 60 0RF No Action tamsulosin 0.4 mg Capsule 0.4 mg PO DAILY 30 Days Qty: 30 1RF pantoprazole 40 mg Tablet,Delayed Release (Dr/Ec) 40 mg PO DAILY 30 Days Qty: 30 1RF gabapentin 300 mg Capsule 300 mg PO TID 30 Days Qty: 90 1RF duloxetine 30 mg Capsule,Delayed Release(Dr/Ec) 30 mg PO DAILY 30 Days Qty: 30 1RF ibuprofen 800 mg tablet 800 mg PO TID PRN (Reason: Pain) quetiapine 200 mg tablet 200 mg PO BEDTIME paroxetine HCl 20 mg tablet 20 mg PO DAILY olanzapine 10 mg tablet,disintegrating 10 mg PO BEDTIME lurasidone 40 mg tablet 40 mg PO QPM Naprosyn 500 mg tablet 500 mg PO BID PRN (Reason: pain) Qty: 20 0RF fluticasone propionate 50 mcg/actuation spray,suspension 2 spray INTRANASAL DAILY Discharge Orders: Discharge ED (Routine); Ordered 09/28/23 Ordered By: Anthony Springer Referrals: Chayito Cali MD [Primary Care Provider] - Discharge Diet: Usual diet Discharge Activity: Increase activity as tolerated Patient Instructions: Dental Abscess (ED), Pain Management Activity Restrictions/Additional Instructions: Pain medications as needed. Take Augmentin. Follow-up with dentist as planned. Return with any new or concerning symptoms. Coding Level of Care Code ED [employer] for Camila Alvares
[2023-09-28 21:55] VITALS: BP 140/91; PULSE 106; RESP 17; TEMP 36.6; O2SAT 94
== END 2023-09-28 21:56 | disposition home or self-care (01) ==
PROVIDERS: Emergency Provider Physician Assistant; PCP Family Medicine
DX: K04.7 Periapical abscess without sinus (principal); Z77.22 Contact with and (suspected) exposure to environmental tobacco smoke (acute) (chronic)
CPT/HCPCS: 96372; 99284; J1100; J1885

== ENCOUNTER 2023-09-29 12:32 | Emergency (ER) | payer MEDICAID, SELFPAY ==
[2023-09-29 12:41] VITALS: BP 158/82; PULSE 109; RESP 17; TEMP 37; O2SAT 99
--- NOTE | 2023-09-29 14:16 | W.ED.BACK ---
HPI - Back Pain/Injury General: Chief Complaint: Back Pain/Injury Stated Complaint: back pain Time Seen by Provider: 09/29/23 13:37 Source: patient Mode of arrival: ambulatory Limitations: no limitations History of Present Illness: 48-year-old male who has a history of chronic back pain is very well-known to the ER currently homeless states he is sleeping on some steps on his back and has had some increased back pain patient is ambulatory here he rates his pain a 5 out of 10 denies any bowel or bladder incontinence. Associated symptoms: Deny abdominal pain, chills, fever(s), nausea or vomiting Review of Systems Const: Denies: fever(s), chills, body aches or change in appetite ENMT: Denies: throat pain or dental pain Card: Denies: chest pain Resp: Denies: dyspnea GI: Denies: abdominal pain, nausea, vomiting or diarrhea Musc: Reports: back pain; Denies: neck pain Skin/Breast: Denies: rash Neuro: Denies: headache(s) PFSH ED PFSH: Medical History Atrial flutter Atrial fibrillation Methamphetamine abuse -UDS positive for amphetamines/THC Bipolar 1 disorder, manic, mild Depressive disorder, not elsewhere classified Adjustment disorder with mixed disturbance of emotions and conduct Alcohol use disorder -Has known history of alcohol abuse&DT Surgical History H/O hernia repair History of appendectomy Family History Other Alcoholism /alcohol abuse Social History Quit status (tobacco/nicotine): has tried quititng Number of times tried to quit tobacco: 4 Second hand smoke exposure: Yes Alcohol intake: current Substance/Drug Use: current Current gender identity: Male Physical Exam Const: COMMON NORMALS: no acute distress, patient oriented x3 and healthy appearing HENMT: COMMON NORMALS: normocephalic and atraumatic HEAD & SCALP: normocephalic and atraumatic Neck/C-Spine: COMMON NORMALS: full ROM and supple Chest: COMMONS NORMALS: normal inspection of the chest Resp: COMMON NORMALS: normal respiratory effort Cardio: COMMON NORMALS: regular rate, regular rhythm and No murmurs present (Cardio) RATE: regular rate RHYTHM: regular rhythm GI: COMMON NORMALS: Normal to inspection, nondistended, normoactive bowel sounds present, Soft to palpation, non-tender and no masses PALPATION: Yes Soft to palpation Back/Pelvis: OTHER: Slight mid back tenderness with no obvious abnormality Extremity: COMMON NORMALS: normal to inspection and full ROM Neuro: COMMON NORMALS: patient oriented x3, moves all extremities and no focal motor deficits Psych: COMMON NORMALS: mental status grossly normal, Normal thought process present and cooperative THOUGHT PROCESS: Normal thought process present Skin: COMMON NORMALS: no rashes or lesions noted and no wounds GENERAL SKIN EXAM: no rashes or lesions noted Course Vital Signs: Vital signs: Vital Signs Temperature 98.6 F 09/29/23 12:41 Pulse Rate 109 H 09/29/23 12:41 Respiratory Rate 17 09/29/23 12:41 Blood Pressure 158/82 09/29/23 12:41 Pulse Oximetry 99 09/29/23 12:41 Oxygen Delivery Me thod Room Air 09/29/23 12:41 MDM - Back Pain/Injury Medical Decision Making Patient presents here with back pain patient is well-appearing here stable for discharge. Medical Records I reviewed the patient's medical records. No radiology studies performed this visit Discharge Plan Discharge Patient Disposition: Home Clinical Impression: Low back pain Condition: Stable Prescriptions: New Naprosyn 500 mg tablet 500 mg PO BID PRN (Reason: pain) Qty: 20 0RF No Action tamsulosin 0.4 mg Capsule 0.4 mg PO DAILY 30 Days Qty: 30 1RF pantoprazole 40 mg Tablet,Delayed Release (Dr/Ec) 40 mg PO DAILY 30 Days Qty: 30 1RF gabapentin 300 mg Capsule 300 mg PO TID 30 Days Qty: 90 1RF duloxetine 30 mg Capsule,Delayed Release(Dr/Ec) 30 mg PO DAILY 30 Days Qty: 30 1RF ibuprofen 800 mg tablet 800 mg PO TID PRN (Reason: Pain) quetiapine 200 mg tablet 200 mg PO BEDTIME paroxetine HCl 20 mg tablet 20 mg PO DAILY olanzapine 10 mg tablet,disintegrating 10 mg PO BEDTIME lurasidone 40 mg tablet 40 mg PO QPM fluticasone propionate 50 mcg/actuation spray,suspension 2 spray INTRANASAL DAILY amoxicillin-pot clavulanate 875-125 mg tablet 1 tab PO BID 10 Days Qty: 20 0RF Naprosyn 500 mg tablet 500 mg PO Q8H PRN (Reason: pain) Qty: 60 0RF Discharge Orders: Discharge ED (Routine); Ordered 09/29/23 Ordered By: Fransisco Berry Referrals: Chayito Cali MD [Primary Care Provider] - 4-7 days Discharge Diet: Advance as tolerated Discharge Activity: Resume usual activity Patient Instructions: Back Pain (ED) Coding Level of Care Code ED [employer] Teacher for Camila Alvares
[2023-09-29] MEDS: ketorolac 30 mg/mL INJ IM (14:28)
[2023-09-29 15:15] VITALS: BP 130/83; PULSE 85; RESP 18; O2SAT 95
== END 2023-09-29 15:16 | disposition home or self-care (01) ==
PROVIDERS: Emergency Provider Emergency Medicine; PCP Family Medicine
DX: M54.50 Low back pain, unspecified (principal); Z87.891 Personal history of nicotine dependence; Z59.00 Homelessness unspecified
CPT/HCPCS: 96372; 99284; J1885

== ENCOUNTER 2023-11-22 03:08 | Emergency (ER) | payer MEDICAID, SELFPAY ==
[2023-11-22 03:11] VITALS: BP 121/79; PULSE 101; RESP 18; TEMP 36.8; O2SAT 99; BMI 18.6
--- NOTE | 2023-11-22 03:20 | W.ED.PSYCHS ---
Documented by User: Dorina George MD 11/22/23 04:23 HPI - Psych General: Chief Complaint: Psychiatric Symptoms Stated Complaint: Si/Hi Time Seen by Provider: 11/22/23 03:11 History of Present Illness: 48-year-old man who presents to the emergency room with possible suicidal thoughts. He says he has been drinking but not as much as he usually does. He reported that he wanted to have a cigarette and could not find a ladder and so then he decided to come to the emergency room because he did have any place to go and that he is suicidal and homicidal and that if somebody wanted to kill him he would let them. Review of Systems Narrative: Constitutional symptoms: Negative except as documented in HPI. Skin symptoms: Negative except as documented in HPI. Eye symptoms: Negative except as documented in HPI. ENMT symptoms: Negative except as documented in HPI. Respiratory symptoms: Negative except as documented in HPI. Cardiovascular symptoms: Negative except as documented in HPI. Gastrointestinal symptoms: Negative except as documented in HPI. Genitourinary symptoms: Negative except as documented in HPI. Musculoskeletal symptoms: Negative except as documented in HPI. Neurologic symptoms: Negative except as documented in HPI. Psychiatric symptoms: Negative except as documented in HPI. Endocrine symptoms: Negative except as documented in HPI. PFS ED PFSH: Medical History (Updated 11/22/23 @ 04:24 by Dorina George MD) Psychiatric care Atrial flutter Atrial fibrillation Methamphetamine abuse -UDS positive for amphetamines/THC Bipolar 1 disorder, manic, mild Depressive disorder, not elsewhere classified Adjustment disorder with mixed disturbance of emotions and conduct Alcohol use disorder -Has known history of alcohol abuse&DT Surgical History H/O hernia repair History of appendectomy Family History Other Alcoholism /alcohol abuse Social History Quit status (tobacco/nicotine): has tried quititng Number of times tried to quit tobacco: 4 Second hand smoke exposure: Yes Alcohol intake: current Substance/Drug Use: current Current gender identity: Male Physical Exam Narrative: EXAM NARRATIVE: General: Alert, no acute distress. Skin: Warm, dry. Head: Normocephalic, atraumatic. Neck: Supple, trachea midline. Eye: Extraocular movements are intact. Ears, nose, mouth and throat: mucosa moist. Cardiovascular: Regular, Normal peripheral perfusion. Respiratory: Lungs are clear to auscultation, respirations are non-labored, breath sounds are equal, Symmetrical chest wall expansion. Gastrointestinal: Soft, Nontender, Non distended, Normal bowel sounds. Musculoskeletal: Normal ROM, no deformity. Neurological: Alert and oriented, No focal neurological deficit observed. Psychiatric: Patient appears somewhat intoxicated. Course Vital Signs: Vital signs: Vital Signs Temperature 98.2 F 11/22/23 03:11 Pulse Rate 101 H 11/22/23 03:11 Respiratory Rate 18 11/22/23 03:11 Blood Pressure 121/79 11/22/23 03:11 Pulse Oximetry 99 11/22/23 03:11 Oxygen Delivery Me thod Room Air 11/22/23 03:11 [facility] - Psych Medical Decision Making Differential diagnosis: Patient with reported depression and suicidal ideation. concerns for infection, alcohol intoxication, cardiac issues or other medical problems prior to psychiatric admission. Workup: labwork, ekg ordered to evaluate the pathologies and to clear the patient medically prior to psychiatric admission Lab review: - Medically cleared. - EKG shows no ischemic changes. - Blood alcohol level is negative, as well as salicylate and Tylenol. - No anemia. - BUN and creatinine are within normal limits. EKG: Time 3:22 AM. Rate 95. Normal sinus rhythm, No ST-T changes, no ectopy, normal NM & QRS intervals, This was reviewed and interpreted by myself the ER physician at 3:25 AM Consultation: I spoke with Dr. Em who will talk to the patient this morning at some point.. Assessment and plan: Alcohol intoxication Suicidal ideation -Determination of admission versus transfer versus discharge will be determined by Dr. Em when he speaks with the patient today. - All lab work was reviewed and interpreted personally by myself, the ER physician - Evaluation and treatment of this problem were appropriate in the emergency setting Lab Data 11/22/23 03:25 11/22/23 03:25 Laboratory Results WBC 8.89 10^3/uL (3.29-11.43) 11/22/23 03:25 RBC 4.29 10^6/uL (3.85-5.65) 11/22/23 03:25 Hgb 15.30 g/dL (11.27-16.99) 11/22/23 03:25 Hct 46.5 % (37-53) 11/22/23 03:25 MCV 108.4 fl (82-101) H 11/22/23 03:25 MCH 35.7 pg (27-33) H 11/22/23 03:25 MCHC 32.9 g/dL (30-55) 11/22/23 03:25 RDW 12.7 % (12.1-15.1) 11/22/23 03:25 Plt Count 249 10^3/cmm (157-399) 11/22/23 03:25 MPV 9.2 fL (7.4-10.4) 11/22/23 03:25 Neut % (Auto) 65.3 % 11/22/23 03:25 Lymph % (Auto) 24.5 % 11/22/23 03:25 [place] % (Auto) 8.7 % 11/22/23 03:25 Eos % (Auto) 1.0 % 11/22/23 03:25 Baso % (Auto) 0.3 % 11/22/23 03:25 Neut # (Auto) 5.80 10^3/uL (1.8-7.7) 11/22/23 03:25 Lymph # (Auto) 2.2 10^3/uL (0.8-4.8) 11/22/23 03:25 Randolph # (Auto) 0.8 10^3/uL (0.2-0.9) 11/22/23 03:25 Eos # (Auto) 0.1 10^3/uL (0.0-0.8) 11/22/23 03:25 Baso # (Auto) 0.0 10^3/uL (0.0-0.1) 11/22/23 03:25 Nucleated RBC % (auto) 0 % 11/22/23 03:25 Nucleated RBCs # 0.0 /100WBC 11/22/23 03:25 Sodium 143 mmol/L (136-145) 11/22/23 03:25 Potassium 3.7 mmol/L (3.5-5.1) 11/22/23 03:25 Chloride 105 mmol/L (98-107) 11/22/23 03:25 Carbon Dioxide 27 mmol/L (22-29) 11/22/23 03:25 Anion Gap 14.7 (5-19) 11/22/23 03:25 BUN 15 mg/dL (6-20) 11/22/23 03:25 Creatinine 0.7 mg/dL (0.7-1.2) 11/22/23 03:25 GFR Calculation 120.9 mL/min (90-130) 11/22/23 03:25 Glucose 69 mg/dL (65-115) 11/22/23 03:25 Calculated Osmolality 295 mOsm/kg (285-295) 11/22/23 03:25 Calcium 8.9 mg/dL (8.5-10.5) 11/22/23 03:25 Total Bilirubin 0.2 mg/dL (0.15-1.2) 11/22/23 03:25 AST 15 U/L (0-40) 11/22/23 03:25 ALT 15 U/L (0-41) 11/22/23 03:25 Alkaline Phosphatase 86 U/L (40-130) 11/22/23 03:25 Total Protein 7.5 g/dL (6.6-8.7) 11/22/23 03:25 Albumin 4.0 g/dL (3.5-5.2) 11/22/23 03:25 Globulin 3.5 g/dL (1.3-4.6) 11/22/23 03:25 TSH 1.06 uIU/mL (0.27-4.20) 11/22/23 03:25 Urine Color Yellow (Yellow) 11/22/23 06:30 Urine Appearance Clear (CLEAR) 11/22/23 06:30 Urine pH 5 (5-7) 11/22/23 06:30 Ur Specific [place] 1.020 (1.005-1.030) 11/22/23 06:30 Urine Protein Neg (Negative) 11/22/23 06:30 Urine Glucose (UA) Norm (Normal) 11/22/23 06:30 Urine Ketones Negative (Negative) 11/22/23 06:30 Urine Blood Neg (Negative) 11/22/23 06:30 Urine Nitrate Negative (Negative) 11/22/23 06:30 Urine Bilirubin Neg (Negative) 11/22/23 06:30 Urine Urobilinogen Neg mg/dL (Negative) 11/22/23 06:30 Ur Leukocyte Esterase Negative (Negative) 11/22/23 06:30 Urine RBC None /hpf (0-2) 11/22/23 06:30 Urine WBC None /hpf (0-5) 11/22/23 06:30 Ur Squamous Epith Cells None /hpf (0-5) 11/22/23 06:30 Amorphous Sediment Not Reportable 11/22/23 06:30 Urine Bacteria None /hpf (NONE) 11/22/23 06:30 Urine Mucus Trace /hpf 11/22/23 06:30 Salicylates < 0.3 mg/dL (3-10) L 11/22/23 03:25 Urine Opiates Screen Negative ng/mL (Negative) 11/22/23 06:30 Acetaminophen < 5.0 ug/mL (10-30) L 11/22/23 03:25 Ur Barbiturates Screen Negative ng/mL (Negative) 11/22/23 06:30 Ur Phencyclidine Scrn Negative ng/mL (Negative) 11/22/23 06:30 Ur Amphetamines Screen Negative ng/mL (Negative) 11/22/23 06:30 U Benzodiazepines Scrn Positive ng/mL (Negative) H 11/22/23 06:30 Urine Cocaine Screen Negative ng/mL (Negative) 11/22/23 06:30 U Marijuana (THC) Screen Negative ng/mL (Negative) 11/22/23 06:30 Ethyl Alcohol 195 mg/dL (0-10) H 11/22/23 03:25 Discharge Plan Discharge Patient Disposition: Home Clinical Impression: Alcohol intoxication, Suicidal ideation Condition: Stable Prescriptions: No Action tamsulosin 0.4 mg Capsule 0.4 mg PO DAILY 30 Days Qty: 30 1RF pantoprazole 40 mg Tablet,Delayed Release (Dr/Ec) 40 mg PO DAILY 30 Days Qty: 30 1RF gabapentin 300 mg Capsule 300 mg PO TID 30 Days Qty: 90 1RF quetiapine 200 mg tablet 200 mg PO BEDTIME paroxetine HCl 20 mg tablet 20 mg PO DAILY olanzapine 10 mg tablet,disintegrating 10 mg PO BEDTIME lurasidone 40 mg tablet 40 mg PO QPM naproxen [Naprosyn] 500 mg tablet 500 mg PO BID PRN (Reason: pain) Qty: 20 0RF fluticasone propionate 50 mcg/actuation spray,suspension 2 spray INTRANASAL DAILY duloxetine 60 mg capsule,delayed release(DR/EC) 60 mg PO DAILY ondansetron 4 mg tablet,disintegrating 4 mg PO Q6H PRN (Reason: Nausea And Vomiting) Discharge Orders: Discharge ED (Routine); Ordered 11/22/23 Ordered By: Cruzito Morocho Referrals: Chayito Cali MD [Primary Care Provider] - Patient Instructions: Opioid Safety, Pain Management Activity Restrictions/Additional Instructions: Thank you for choosing [facility] for your healthcare needs today. It is very important that you follow up as instructed or that you return to the Emergency Department should you have concerns or if your condition changes or worsens in any way. Recommend following up with [facility] you are turning leaf to achieve sobriety Sign Out Sign Out Data: Patient Sign Out occurred on 11/22/23 at 06:47. Patient's care was discussed, and care was transferred from Dorina George MD to Cruzito Morocho DO. Coding Level of Care Code ED Sterile Proc Tech for Chg Fwd Documented by User: Cruzito Morocho DO 11/22/23 09:49 HPI - Psych General: Chief Complaint: Psychiatric Symptoms Stated Complaint: Si/Hi Time Seen by Provider: 11/22/23 03:11 [facility] ED PFSH: Medical History (Updated 11/22/23 @ 04:24 by Dorina George MD) Psychiatric care Atrial flutter Atrial fibrillation Methamphetamine abuse -UDS positive for amphetamines/THC Bipolar 1 disorder, manic, mild Depressive disorder, not elsewhere classified Adjustment disorder with mixed disturbance of emotions and conduct Alcohol use disorder -Has known history of alcohol abuse&DT Surgical History H/O hernia repair History of appendectomy Family History Other Alcoholism /alcohol abuse Social History Quit status (tobacco/nicotine): has tried quititng Number of times tried to quit tobacco: 4 Second hand smoke exposure: Yes Alcohol intake: current Substance/Drug Use: current Current gender identity: Male Course Vital Signs: Vital signs: Vital Signs Temperature 98.2 F 11/22/23 03:11 Pulse Rate 101 H 11/22/23 03:11 Respiratory Rate 18 11/22/23 03:11 Blood Pressure 121/79 11/22/23 03:11 Pulse Oximetry 99 11/22/23 03:11 Oxygen Delivery Me thod Room Air 11/22/23 03:11 MDM - Psych Medical Decision Making Differential diagnosis: Patient with reported depression and suicidal ideation. concerns for infection, alcohol intoxication, cardiac issues or other medical problems prior to psychiatric admission. Workup: labwork, ekg ordered to evaluate the pathologies and to clear the patient medically prior to psychiatric admission Lab review: - Medically cleared. - EKG shows no ischemic changes. - Blood alcohol level is negative, as well as salicylate and Tylenol. - No anemia. - BUN and creatinine are within normal limits. EKG: Time 3:22 AM. Rate 95. Normal sinus rhythm, No ST-T changes, no ectopy, normal NM & QRS intervals, This was reviewed and interpreted by myself the ER physician at 3:25 AM Consultation: I spoke with Dr. Em who will talk to the patient this morning at some point.. Assessment and plan: Alcohol intoxication Suicidal ideation -Determination of admission versus transfer versus discharge will be determined by Dr. Em when he speaks with the patient today. - All lab work was reviewed and interpreted personally by myself, the ER physician - Evaluation and treatment of this problem were appropriate in the emergency setting Care assumed at change of shift. Patient is awake and alert he is now sober. He denies any intent to harm himself states this is something that frequently happens when he is drinking. He has come into the emergency room multiple times in the past while intoxicated with claims of suicidal ideation this resolves as soon as his alcohol level decreases and he becomes more sober. Similar circumstances today. Dr. George had seen him overnight and was going to have Dr. Em see him this morning patient is anxious to leave. He is repeatedly denying any intent to harm himself contacted Dr. Em he states he is very familiar with this patient and recommends that we go ahead and discharge him. He has had them in the hospital several times before he does not feel that hospitalization with this presentation would be of benefit to the patient. Medical Records I reviewed the patient's medical records. Lab Data I reviewed the patient's lab results. 11/22/23 03:25 11/22/23 03:25 Laboratory Results WBC 8.89 10^3/uL (3.29-11.43) 11/22/23 03:25 RBC 4.29 10^6/uL (3.85-5.65) 11/22/23 03:25 Hgb 15.30 g/dL (11.27-16.99) 11/22/23 03:25 Hct 46.5 % (37-53) 11/22/23 03:25 MCV 108.4 fl (82-101) H 11/22/23 03:25 MCH 35.7 pg (27-33) H 11/22/23 03:25 MCHC 32.9 g/dL (30-55) 11/22/23 03:25 RDW 12.7 % (12.1-15.1) 11/22/23 03:25 Plt Count 249 10^3/cmm (157-399) 11/22/23 03:25 MPV 9.2 fL (7.4-10.4) 11/22/23 03:25 Neut % (Auto) 65.3 % 11/22/23 03:25 Lymph % (Auto) 24.5 % 11/22/23 03:25 [place] % (Auto) 8.7 % 11/22/23 03:25 Eos % (Auto) 1.0 % 11/22/23 03:25 Baso % (Auto) 0.3 % 11/22/23 03:25 Neut # (Auto) 5.80 10^3/uL (1.8-7.7) 11/22/23 03:25 Lymph # (Auto) 2.2 10^3/uL (0.8-4.8) 11/22/23 03:25 Randolph # (Auto) 0.8 10^3/uL (0.2-0.9) 11/22/23 03:25 Eos # (Auto) 0.1 10^3/uL (0.0-0.8) 11/22/23 03:25 Baso # (Auto) 0.0 10^3/uL (0.0-0.1) 11/22/23 03:25 Nucleated RBC % (auto) 0 % 11/22/23 03:25 Nucleated RBCs # 0.0 /100WBC 11/22/23 03:25 Sodium 143 mmol/L (136-145) 11/22/23 03:25 Potassium 3.7 mmol/L (3.5-5.1) 11/22/23 03:25 Chloride 105 mmol/L (98-107) 11/22/23 03:25 Carbon Dioxide 27 mmol/L (22-29) 11/22/23 03:25 Anion Gap 14.7 (5-19) 11/22/23 03:25 BUN 15 mg/dL (6-20) 11/22/23 03:25 Creatinine 0.7 mg/dL (0.7-1.2) 11/22/23 03:25 GFR Calculation 120.9 mL/min (90-130) 11/22/23 03:25 Glucose 69 mg/dL (65-115) 11/22/23 03:25 Calculated Osmolality 295 mOsm/kg (285-295) 11/22/23 03:25 Calcium 8.9 mg/dL (8.5-10.5) 11/22/23 03:25 Total Bilirubin 0.2 mg/dL (0.15-1.2) 11/22/23 03:25 AST 15 U/L (0-40) 11/22/23 03:25 ALT 15 U/L (0-41) 11/22/23 03:25 Alkaline Phosphatase 86 U/L (40-130) 11/22/23 03:25 Total Protein 7.5 g/dL (6.6-8.7) 11/22/23 03:25 Albumin 4.0 g/dL (3.5-5.2) 11/22/23 03:25 Globulin 3.5 g/dL (1.3-4.6) 11/22/23 03:25 TSH 1.06 uIU/mL (0.27-4.20) 11/22/23 03:25 Urine Color Yellow (Yellow) 11/22/23 06:30 Urine Appearance Clear (CLEAR) 11/22/23 06:30 Urine pH 5 (5-7) 11/22/23 06:30 Ur Specific [place] 1.020 (1.005-1.030) 11/22/23 06:30 Urine Protein Neg (Negative) 11/22/23 06:30 Urine Glucose (UA) Norm (Normal) 11/22/23 06:30 Urine Ketones Negative (Negative) 11/22/23 06:30 Urine Blood Neg (Negative) 11/22/23 06:30 Urine Nitrate Negative (Negative) 11/22/23 06:30 Urine Bilirubin Neg (Negative) 11/22/23 06:30 Urine Urobilinogen Neg mg/dL (Negative) 11/22/23 06:30 Ur Leukocyte Esterase Negative (Negative) 11/22/23 06:30 Urine RBC None /hpf (0-2) 11/22/23 06:30 Urine WBC None /hpf (0-5) 11/22/23 06:30 Ur Squamous Epith Cells None /hpf (0-5) 11/22/23 06:30 Amorphous Sediment Not Reportable 11/22/23 06:30 Urine Bacteria None /hpf (NONE) 11/22/23 06:30 Urine Mucus Trace /hpf 11/22/23 06:30 Salicylates < 0.3 mg/dL (3-10) L 11/22/23 03:25 Urine Opiates Screen Negative ng/mL (Negative) 11/22/23 06:30 Acetaminophen < 5.0 ug/mL (10-30) L 11/22/23 03:25 Ur Barbiturates Screen Negative ng/mL (Negative) 11/22/23 06:30 Ur Phencyclidine Scrn Negative ng/mL (Negative) 11/22/23 06:30 Ur Amphetamines Screen Negative ng/mL (Negative) 11/22/23 06:30 U Benzodiazepines Scrn Positive ng/mL (Negative) H 11/22/23 06:30 Urine Cocaine Screen Negative ng/mL (Negative) 11/22/23 06:30 U Marijuana (THC) Screen Negative ng/mL (Negative) 11/22/23 06:30 Ethyl Alcohol 195 mg/dL (0-10) H 11/22/23 03:25 No radiology studies performed this visit Discharge Plan Discharge Patient Disposition: Home Clinical Impression: Alcohol intoxication, Suicidal ideation Condition: Stable Prescriptions: No Action tamsulosin 0.4 mg Capsule 0.4 mg PO DAILY 30 Days Qty: 30 1RF pantoprazole 40 mg Tablet,Delayed Release (Dr/Ec) 40 mg PO DAILY 30 Days Qty: 30 1RF gabapentin 300 mg Capsule 300 mg PO TID 30 Days Qty: 90 1RF quetiapine 200 mg tablet 200 mg PO BEDTIME paroxetine HCl 20 mg tablet 20 mg PO DAILY olanzapine 10 mg tablet,disintegrating 10 mg PO BEDTIME lurasidone 40 mg tablet 40 mg PO QPM naproxen [Naprosyn] 500 mg tablet 500 mg PO BID PRN (Reason: pain) Qty: 20 0RF fluticasone propionate 50 mcg/actuation spray,suspension 2 spray INTRANASAL DAILY duloxetine 60 mg capsule,delayed release(DR/EC) 60 mg PO DAILY ondansetron 4 mg tablet,disintegrating 4 mg PO Q6H PRN (Reason: Nausea And Vomiting) Discharge Orders: Discharge ED (Routine); Ordered 11/22/23 Ordered By: Cruzito Morocho Referrals: Chayito Cali MD [Primary Care Provider] - Patient Instructions: Opioid Safety, Pain Management Activity Restrictions/Additional Instructions: Thank you for choosing [facility] for your healthcare needs today. It is very important that you follow up as instructed or that you return to the Emergency Department should you have concerns or if your condition changes or worsens in any way. Recommend following up with [facility] you are turning leaf to achieve sobriety Sign Out Sign Out Data: Patient Sign Out occurred on 11/22/23 at 06:47. Patient's care was discussed, and care was transferred from Dorina George MD to Cruzito Morocho DO. Coding Level of Care Code ED Sterile Proc Tech for Camila Alvares
--- NOTE | 2023-11-22 03:22 | ECG_ITS ---
[facility] Test Date: 2023-11-22 Pat Name: Ludin Gordon Department: Room: Gender: Male Head Custodian: : 1975 Requested By: Dorina Machado Order Number: [id number] Jaime MD: Tylor Hill M.D. Measurements Intervals [place] Rate: 95 P: 65 AR: 134 QRS: 73 QRSD: 89 T: 72 QT: 340 QTc: 429 Interpretive Statements SINUS RHYTHM Compared to ECG 09/26/2023 22:18:26 No significant changes Electronically Signed On 11-22-2023 13:40:39 CDT by Tylor Hill M.D. [id number]
[2023-11-22 03:33] LABS: Basophils % 0.3 %; Eosinophils # 0.1 10^3/uL (0.0-0.8); Hematocrit 46.5 % (37-53); Lymphocytes # 2.2 10^3/uL (0.8-4.8); Lymphocytes % 24.5 %; Mean Corpuscular HGB Conc 32.9 g/dL (30-55); Mean Corpuscular Hemoglobin 35.7 pg (27-33); Mean Corpuscular Volume 108.4 fl (82-101); Mean Platelet Volume 9.2 fL (7.4-10.4); Monocytes # 0.8 10^3/uL (0.2-0.9); Monocytes % 8.7 %; Neutrophils % 65.3 %; Nucleated Red Blood Cells % 0 %; Platelet Count 249 10^3/cmm (157-399); Red Blood Count 4.29 10^6/uL (3.85-5.65); Red Cell Distribution Width 12.7 % (12.1-15.1); White Blood Count 8.89 10^3/uL (3.29-11.43)
[2023-11-22 04:16] LABS: Alanine Aminotransferase 15 U/L (0-41); Alcohol Level 195 mg/dL (0-10); Alkaline Phosphatase 86 U/L (40-130); Anion Gap 14.7 (5-19); Aspartate Amino Transferase 15 U/L (0-40); Blood Urea Nitrogen 15 mg/dL (6-20); Calcium 8.9 mg/dL (8.5-10.5); Carbon Dioxide 27 mmol/L (22-29); Chloride 105 mmol/L (98-107); Creatinine Clr Calc Pharmacy 108.8082; Globulin 3.5 g/dL (1.3-4.6); Glomerular Filtration Rate 120.9 mL/min (90-130); Glucose 69 mg/dL (65-115); Osmolality Calculated 295 mOsm/kg (285-295); Potassium 3.7 mmol/L (3.5-5.1); Sodium 143 mmol/L (136-145); Thyroid Stimulating Hormone 1.06 uIU/mL (0.27-4.20); Total Bilirubin 0.2 mg/dL (0.15-1.2); Total Protein 7.5 g/dL (6.6-8.7)
[2023-11-22 04:17] LABS: Acetaminophen < 5.0 ug/mL (10-30); Salicylate < 0.3 mg/dL (3-10)
[2023-11-22 06:38] LABS: Urine Appearance Clear (CLEAR); Urine Color Yellow (Yellow); pH Urine 5 (5-7)
[2023-11-22 06:39] LABS: Add Urine Culture? No; Bilirubin Urine Neg (Negative); Blood Urine Neg (Negative); Glucose Urine UA Norm (Normal); Ketones Urine Negative (Negative); Leukocyte Esterase Urine Negative (Negative); Mucus Urine TRACE /hpf; Nitrate Urine Negative (Negative); Protein Urine Neg (Negative); Urobilinogen Urine Neg (Negative)
[2023-11-22 06:42] LABS: Amphetamines Screen Urine Negative (Negative); Barbiturates Screen Urine Negative (Negative); Benzodiazepines Screen Urine Positive (Negative); Cocaine Screen Urine Negative (Negative); Opiate Screen Urine Negative (Negative); PCP Screen Urine Negative (Negative); THC Screen Urine Negative (Negative)
--- NOTE | 2023-11-22 07:13 | PC.PHAR ---
UNABLE TO VERIFY YET IF PT TOOK MEDS YESTERDAY. PT SHOULD BE ALMOST OUT OF ALL MEDICATIONS.
== END 2023-11-22 09:45 | disposition home or self-care (01) ==
PROVIDERS: Emergency Medicine; Emergency Provider Family Medicine; PCP Family Medicine
DX: R45.851 Suicidal ideations (principal); F10.129 Alcohol abuse with intoxication, unspecified; Y90.6 Blood alcohol level of 120-199 mg/100 ml; Z77.22 Contact with and (suspected) exposure to environmental tobacco smoke (acute) (chronic)
CPT/HCPCS: 80053; 80306; 80307; 81001; 84443; 85025; 93005; 99284

== ENCOUNTER 2023-12-12 04:49 | Emergency (ER) | payer MEDICAID, SELFPAY ==
[2023-12-12 04:55] VITALS: BP 112/82; PULSE 78; RESP 14; TEMP 36.4; O2SAT 96; BMI 19.9
[2023-12-12 05:05] VITALS: PULSE 84; RESP 15; O2SAT 98
--- NOTE | 2023-12-12 05:17 | W.ED.ALCOHOL ---
Documented by User: Dorina George MD 12/12/23 05:23 HPI - Alcohol General: Chief Complaint: Alcohol Stated Complaint: intoxication Time Seen by Provider: 12/12/23 04:56 History of Present Illness: 48-year-old man who presents emergency room with security. Apparently they found him outside passed out. He is a well-known alcoholic and appears quite intoxicated on presentation. He is not cooperative with me. Basically refuses to give any information to me and is verbally abusive. Review of Systems Narrative: Unable to obtain secondary to uncooperative patient PFSH ED PFSH: Medical History (Updated 12/12/23 @ 06:03 by Cruzito Morocho DO) Psychiatric care Atrial flutter Atrial fibrillation Methamphetamine abuse -UDS positive for amphetamines/THC Bipolar 1 disorder, manic, mild Depressive disorder, not elsewhere classified Adjustment disorder with mixed disturbance of emotions and conduct Alcohol use disorder -Has known history of alcohol abuse&DT Surgical History H/O hernia repair History of appendectomy Family History Other Alcoholism /alcohol abuse Social History Quit status (tobacco/nicotine): has tried quititng Number of times tried to quit tobacco: 4 Second hand smoke exposure: Yes Alcohol intake: current Substance/Drug Use: current Current gender identity: Male Physical Exam Narrative: EXAM NARRATIVE: General: Alert Skin: Warm, dry. Head: Normocephalic, atraumatic. Neck: Supple, trachea midline. Eye: Extraocular movements are intact. Ears, nose, mouth and throat: mucosa moist. Cardiovascular: Regular, Normal peripheral perfusion. Respiratory: Lungs are clear to auscultation, respirations are non-labored, breath sounds are equal, Symmetrical chest wall expansion. Gastrointestinal: Soft, Nontender, Non distended Musculoskeletal: Normal ROM, no deformity. Neurological: Alert, No focal neurological deficit observed. Psychiatric: Patient is intoxicated, agitated Course Vital Signs: Vital signs: Vital Signs Temperature 97.6 F 12/12/23 04:55 Pulse Rate 84 12/12/23 05:05 Respiratory Rate 15 12/12/23 05:05 Blood Pressure 112/82 12/12/23 04:55 Pulse Oximetry 98 12/12/23 05:05 Oxygen Delivery Me thod Room Air 12/12/23 05:05 MDM - Alcohol Medical Decision Making I am placing basic orders including an alcohol level and the generalized workup for psychiatry. He is quite intoxicated at this point and was awake and agitated and then immediately passed out. He is maintaining his airway at this time. Patient care transition to Dr. Morocho at shift change. Discharge Plan Discharge Patient Disposition: Home Clinical Impression: Alcohol use disorder, Alcohol abuse, Alcoholic intoxication Condition: Stable Prescriptions: No Action tamsulosin 0.4 mg Capsule 0.4 mg PO DAILY 30 Days Qty: 30 1RF pantoprazole 40 mg Tablet,Delayed Release (Dr/Ec) 40 mg PO DAILY 30 Days Qty: 30 1RF gabapentin 300 mg Capsule 300 mg PO TID 30 Days Qty: 90 1RF quetiapine 200 mg tablet 200 mg PO BEDTIME paroxetine HCl 20 mg tablet 20 mg PO DAILY olanzapine 10 mg tablet,disintegrating 10 mg PO BEDTIME lurasidone 40 mg tablet 40 mg PO QPM naproxen [Naprosyn] 500 mg tablet 500 mg PO BID PRN (Reason: pain) Qty: 20 0RF fluticasone propionate 50 mcg/actuation spray,suspension 2 spray INTRANASAL DAILY duloxetine 60 mg capsule,delayed release(DR/EC) 60 mg PO DAILY ondansetron 4 mg tablet,disintegrating 4 mg PO Q6H PRN (Reason: Nausea And Vomiting) Discharge Orders: Discharge ED (Routine); Ordered 12/12/23 Ordered By: Cruzito Morocho Patient Instructions: Alcoholism, Alcohol Intoxication (ED), Abuse of Alcohol (ED), Alcohol Dependence (ED), Opioid Safety, Pain Management Sign Out Sign Out Data: Patient Sign Out occurred on 12/12/23 at 05:58. Patient's care was discussed, and care was transferred from Dorina George MD to Cruzito Morocho DO. Coding Level of Care Code ED Groundskeeping Yardman for Chg Fwd Documented by User: Cruzito Morocho DO 12/12/23 06:11 HPI - Alcohol General: Chief Complaint: Alcohol Stated Complaint: intoxication Time Seen by Provider: 12/12/23 04:56 PFSH ED PFSH: Medical History (Updated 12/12/23 @ 06:03 by Cruzito Morocho DO) Psychiatric care Atrial flutter Atrial fibrillation Methamphetamine abuse -UDS positive for amphetamines/THC Bipolar 1 disorder, manic, mild Depressive disorder, not elsewhere classified Adjustment disorder with mixed disturbance of emotions and conduct Alcohol use disorder -Has known history of alcohol abuse&DT Surgical History H/O hernia repair History of appendectomy Family History Other Alcoholism /alcohol abuse Social History Quit status (tobacco/nicotine): has tried quititng Number of times tried to quit tobacco: 4 Second hand smoke exposure: Yes Alcohol intake: current Substance/Drug Use: current Current gender identity: Male Course Vital Signs: Vital signs: Vital Signs Temperature 97.6 F 12/12/23 04:55 Pulse Rate 84 12/12/23 05:05 Respiratory Rate 15 12/12/23 05:05 Blood Pressure 112/82 12/12/23 04:55 Pulse Oximetry 98 12/12/23 05:05 Oxygen Delivery Me thod Room Air 12/12/23 05:05 MDM - Alcohol Medical Decision Making I am placing basic orders including an alcohol level and the generalized workup for psychiatry. He is quite intoxicated at this point and was awake and agitated and then immediately passed out. He is maintaining his airway at this time. Patient care transition to Dr. Morocho at shift change. Care assumed at change of shift patient is awake and alert walking around. He is refusing any lab work. He evidently was found in the parking lot passed out he was brought and he has been here for about an hour. Mr. Mendenhall is frequently seen in the emergency room usually associated with his affinity for alcohol. In the past most of his visits he comes in intoxicated very agitated with suicidal ideation. This time he specifically denies any suicidal or homicidal ideation. He is refusing any any care at all at this point. We have no reason to place him on a 96-hour hold he will be discharged. No radiology studies performed this visit Discharge Plan Discharge Patient Disposition: Home Clinical Impression: Alcohol use disorder, Alcohol abuse, Alcoholic intoxication Condition: Stable Prescriptions: No Action tamsulosin 0.4 mg Capsule 0.4 mg PO DAILY 30 Days Qty: 30 1RF pantoprazole 40 mg Tablet,Delayed Release (Dr/Ec) 40 mg PO DAILY 30 Days Qty: 30 1RF gabapentin 300 mg Capsule 300 mg PO TID 30 Days Qty: 90 1RF quetiapine 200 mg tablet 200 mg PO BEDTIME paroxetine HCl 20 mg tablet 20 mg PO DAILY olanzapine 10 mg tablet,disintegrating 10 mg PO BEDTIME lurasidone 40 mg tablet 40 mg PO QPM naproxen [Naprosyn] 500 mg tablet 500 mg PO BID PRN (Reason: pain) Qty: 20 0RF fluticasone propionate 50 mcg/actuation spray,suspension 2 spray INTRANASAL DAILY duloxetine 60 mg capsule,delayed release(DR/EC) 60 mg PO DAILY ondansetron 4 mg tablet,disintegrating 4 mg PO Q6H PRN (Reason: Nausea And Vomiting) Discharge Orders: Discharge ED (Routine); Ordered 12/12/23 Ordered By: Cruzito Morocho Patient Instructions: Alcoholism, Alcohol Intoxication (ED), Abuse of Alcohol (ED), Alcohol Dependence (ED), Opioid Safety, Pain Management Sign Out Sign Out Data: Patient Sign Out occurred on 12/12/23 at 05:58. Patient's care was discussed, and care was transferred from Dorina George MD to Cruzito Morocho DO. Coding Level of Care Code ED Groundskeeping Yardman for Camila Alvares
[2023-12-12 06:23] VITALS: PULSE 80; O2SAT 98
[2023-12-12 06:23] LABS: Bilirubin Urine Neg (Negative); Blood Urine Neg (Negative); Glucose Urine UA Norm (Normal); Ketones Urine Negative (Negative); Leukocyte Esterase Urine Negative (Negative); Nitrate Urine Negative (Negative); Protein Urine Neg (Negative); Specific Gravity, Urine 1.005 (1.005-1.030); Urine Appearance Clear (CLEAR); Urine Color Yellow (Yellow); Urobilinogen Urine Neg (Negative); pH Urine 6 (5-7)
[2023-12-12 06:26] LABS: Add Urine Culture? No; Bacteria Urine TRACE /hpf; RBC Urine RARE /hpf (0-2); Squamous Epithelial Cell Urine RARE /hpf (0-5); WBC Urine RARE /hpf (0-5)
[2023-12-12 06:27] LABS: Amphetamines Screen Urine Negative (Negative); Barbiturates Screen Urine Negative (Negative); Benzodiazepines Screen Urine Negative (Negative); Cocaine Screen Urine Negative (Negative); Opiate Screen Urine Negative (Negative); PCP Screen Urine Negative (Negative); THC Screen Urine Positive (Negative)
== END 2023-12-12 06:19 | disposition home or self-care (01) ==
PROVIDERS: Emergency Medicine; Emergency Provider Family Medicine
DX: F10.120 Alcohol abuse with intoxication, uncomplicated (principal); Z90.49 Acquired absence of other specified parts of digestive tract
CPT/HCPCS: 80306; 81001; 99283

== ENCOUNTER 2023-12-19 02:15 | Emergency (ER) | payer MEDICAID, SELFPAY ==
[2023-12-19 02:18] VITALS: BP 102/84; PULSE 97; RESP 16; TEMP 36.5; O2SAT 97; BMI 17.0
--- NOTE | 2023-12-19 02:25 | W.ED.ABDPA2 ---
HPI - Abdominal Pain General: Chief Complaint: Abdominal Pain Stated Complaint: Intoxicated\Rib Pain Time Seen by Provider: 12/19/23 02:16 History of Present Illness: Patient presents to the ER intoxicated he told the nurse that he had stomach pain hematuria diarrhea nausea vomiting for years. He told me they did not have any problems other than he wanted to go to rehab and/or be put on Suboxone to help him get off the alcohol. We had a discussion that we do not do Suboxone or rehab through the ER. That went talk to the nurse about the local rehab places around. And by the time I got back into the room he was passed out. Review of Systems General: Reports: 10 or more systems reviewed and unremarkable except in HPI and below PFSH ED PFSH: Medical History Psychiatric care Atrial flutter Atrial fibrillation Methamphetamine abuse -UDS positive for amphetamines/THC Bipolar 1 disorder, manic, mild Depressive disorder, not elsewhere classified Adjustment disorder with mixed disturbance of emotions and conduct Alcohol use disorder -Has known history of alcohol abuse&DT Surgical History H/O hernia repair History of appendectomy Family History Other Alcoholism /alcohol abuse Social History Quit status (tobacco/nicotine): has tried quititng Number of times tried to quit tobacco: 4 Second hand smoke exposure: Yes Alcohol intake: current Substance/Drug Use: current Current gender identity: Male Physical Exam Const: COMMON NORMALS: no acute distress, average body habitus, healthy appearing, alert and well nourished Neck/C-Spine: COMMON NORMALS: no JVD Chest: COMMONS NORMALS: normal inspection of the chest and normal palpation of entire chest wall Resp: COMMON NORMALS: normal respiratory effort, No retractions, No use of accessory muscles and clear to auscultation bilaterally AUSCULTATION: clear to auscultation bilaterally Cardio: COMMON NORMALS: no JVD, regular rate, regular rhythm, S1 normal heart sound present, S2 normal heart sound present, No gallops present (Cardio), No clicks present (Cardio), No murmurs present (Cardio) and No rub (Cardio) RATE: regular rate RHYTHM: regular rhythm HEART SOUNDS: S1 normal heart sound present and S2 normal heart sound present GI: COMMON NORMALS: Normal to inspection, nondistended, normoactive bowel sounds present, Soft to palpation, non-tender, No hepatosplenomegaly present and no masses PALPATION: Yes Soft to palpation and Yes No hepatosplenomegaly present Neuro: SENSORIUM/ORIENTATION: Yes alert Course Vital Signs: Vital signs: Vital Signs Temperature 97.7 F 12/19/23 02:18 Pulse Rate 97 12/19/23 02:18 Respiratory Rate 16 12/19/23 02:18 Blood Pressure 102/84 12/19/23 02:18 Pulse Oximetry 97 12/19/23 02:18 Oxygen Delivery Me thod Room Air 12/19/23 02:18 MDM - Abdominal Pain Medical Decision Making Discussed rehab and Suboxone with the patient and told him would refer him back to his family practice doctor when I went out to talk to the nurse about possible rehab locations on outpatient basis we give him information for them by time we went back into the patient's room he had passed out. Will let the patient sleep it off see if he has anything else when he wakes up because he did not talk to me about the stomach pain hematuria diarrhea nausea vomiting. Otherwise patient be discharged home. Medical Records I reviewed the patient's medical records. Lab Data I reviewed the patient's lab results. No radiology studies performed this visit Discharge Plan Discharge Patient Disposition: Home Clinical Impression: Alcohol use disorder, severe, dependence Alcohol intoxication Qualifiers: Complication of substance-induced condition: uncomplicated Qualified Code(s): F10.920 - Alcohol use, unspecified with intoxication, uncomplicated Condition: Stable Prescriptions: No Action tamsulosin 0.4 mg Capsule 0.4 mg PO DAILY 30 Days Qty: 30 1RF pantoprazole 40 mg Tablet,Delayed Release (Dr/Ec) 40 mg PO DAILY 30 Days Qty: 30 1RF gabapentin 300 mg Capsule 300 mg PO TID 30 Days Qty: 90 1RF quetiapine 200 mg tablet 200 mg PO BEDTIME paroxetine HCl 20 mg tablet 20 mg PO DAILY olanzapine 10 mg tablet,disintegrating 10 mg PO BEDTIME lurasidone 40 mg tablet 40 mg PO QPM naproxen [Naprosyn] 500 mg tablet 500 mg PO BID PRN (Reason: pain) Qty: 20 0RF fluticasone propionate 50 mcg/actuation spray,suspension 2 spray INTRANASAL DAILY duloxetine 60 mg capsule,delayed release(DR/EC) 60 mg PO DAILY ondansetron 4 mg tablet,disintegrating 4 mg PO Q6H PRN (Reason: Nausea And Vomiting) Discharge Orders: Discharge ED (Routine); Ordered 12/19/23 Ordered By: Trino Baptiste Patient Instructions: Alcohol Use Disorder (ED) Activity Restrictions/Additional Instructions: Please refrain from drinking alcohol. Please follow-up with your family practice doctor immediately for further evaluation and treatment and possible help with getting you into a outpatient alcohol treatment facility program. Coding Level of Care Code ED Lithograph Press Feeder for Camila Alvares
[2023-12-19 02:30] VITALS: BP 132/83; PULSE 99; O2SAT 97
[2023-12-19 03:00] VITALS: BP 100/68; PULSE 86; O2SAT 95
[2023-12-19 03:30] VITALS: BP 128/98; PULSE 81; O2SAT 98
--- NOTE | 2023-12-19 03:30 | PC.NURSE ---
PT FOUND TO BE LEANING HIS HEAD AGAINST THE INSIDE OF THE ROOM DOOR AND MOANING. UPON OPENING THE DOOR, PT WAS FOUND TO BE STANDING THERE WITH HIS HAND IN HIS PANTS AND MOANING. WHILE TRYING TO GET THE PT'S ATTENTION, PT STARTED TO URINATE THROUGH HIS CLOTHES AND ONTO THE FLOOR. PT WAS ASKED TO STOP URINATING. ONCE HE STOPPED, PT STARTED RANTING AND WALKING BACK TO THE BED, WHERE HE LAID DOWN AND WENT BACK TO SLEEP. URINE WAS SOAKED UP WITH TOWELS AND HOUSEKEEPING WAS CONTACTED TO MOP THE FLOOR.
--- NOTE | 2023-12-19 04:10 | PC.NURSE ---
PT WAS FOUND TO BE STANDING IN HIS ROOM MOANING. UPON NURSING STAFF APPROACHING THE ROOM, PT BEGAN TO URINATE ON THE FLOOR THROUGH HIS PANTS. PT REFUSED TO STOP. PT STATED THAT HE IS READY TO BE DISCHARGED.
== END 2023-12-19 04:19 | disposition home or self-care (01) ==
PROVIDERS: Emergency Provider Emergency Medicine
DX: F10.220 Alcohol dependence with intoxication, uncomplicated (principal); Z77.22 Contact with and (suspected) exposure to environmental tobacco smoke (acute) (chronic)
CPT/HCPCS: 99281

== ENCOUNTER 2024-01-03 04:17 | Emergency (ER) | payer MEDICAID, SELFPAY ==
[2023-12-27 15:20] VITALS: BP 128/98; BMI 17.0
[2024-01-03 04:17] VITALS: BP 126/94; PULSE 102; RESP 18; TEMP 36.6; O2SAT 96
[2024-01-03 04:24] VITALS: BP 126/94; PULSE 105; RESP 18; TEMP 37; O2SAT 97
[2024-01-03 04:56] VITALS: PULSE 88; RESP 20
[2024-01-03 04:57] LABS: Basophils % 0.5 %; Eosinophils % 0.3 %; Lymphocytes # 1.9 10^3/uL (0.8-4.8); Lymphocytes % 21.7 %; Mean Corpuscular HGB Conc 33.8 g/dL (30-55); Mean Corpuscular Hemoglobin 36.8 pg (27-33); Mean Corpuscular Volume 108.8 fl (82-101); Mean Platelet Volume 8.5 fL (7.4-10.4); Monocytes # 0.7 10^3/uL (0.2-0.9); Monocytes % 7.7 %; Neutrophils # 6.15 10^3/uL (1.8-7.7); Neutrophils % 69.3 %; Nucleated Red Blood Cells % 0 %; Platelet Count 351 10^3/cmm (157-399); Red Blood Count 4.32 10^6/uL (3.85-5.65); White Blood Count 8.86 10^3/uL (3.29-11.43)
[2024-01-03 04:59] LABS: Charge for UA Resulting for Rev
[2024-01-03 05:02] LABS: Bilirubin Urine Negative (Negative); Blood Urine Negative (Negative); Glucose Urine UA Negative (Normal); Ketones Urine Negative (Negative); Leukocyte Esterase Urine Negative (Negative); Nitrate Urine Negative (Negative); Protein Urine Negative (Negative); Specific Gravity, Urine 1.009 (1.005-1.030); Urine Appearance Clear (CLEAR); Urine Color Yellow (Yellow); pH Urine 5.5 (5-7)
[2024-01-03 05:05] LABS: Add Urine Culture? No
[2024-01-03 05:09] LABS: Amphetamines Screen Urine Negative (Negative); Barbiturates Screen Urine Negative (Negative); Benzodiazepines Screen Urine Negative (Negative); Cocaine Screen Urine Negative (Negative); Opiate Screen Urine Negative (Negative); PCP Screen Urine Negative (Negative); THC Screen Urine Positive (Negative)
[2024-01-03 05:15] LABS: Alanine Aminotransferase 29 U/L (0-41); Albumin Level 4.4 g/dL (3.5-5.2); Alkaline Phosphatase 116 U/L (40-130); Anion Gap 18.9 (5-19); Aspartate Amino Transferase 28 U/L (0-40); Blood Urea Nitrogen 14 mg/dL (6-20); Calcium 8.7 mg/dL (8.5-10.5); Carbon Dioxide 22 mmol/L (22-29); Chloride 105 mmol/L (98-107); Creatinine Clr Calc Pharmacy 4.3949; Globulin 3.7 g/dL (1.3-4.6); Glomerular Filtration Rate 103.6 mL/min (90-130); Glucose 109 mg/dL (65-115); Osmolality Calculated 295 mOsm/kg (285-295); Potassium 3.9 mmol/L (3.5-5.1); Sodium 142 mmol/L (136-145); Total Bilirubin 0.3 mg/dL (0.15-1.2); Total Protein 8.1 g/dL (6.6-8.7)
[2024-01-03 05:16] LABS: Acetaminophen < 5.0 ug/mL (10-30); Salicylate < 0.3 mg/dL (3-10)
[2024-01-03 05:17] LABS: Alcohol Level 322 mg/dL (0-10)
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
[2024-01-03 06:21] VITALS: BP 100/60; PULSE 112; RESP 18; O2SAT 97
[2024-01-03] MEDS: duloxetine 30 mg Capsule PO (10:42)
[2024-01-03] MEDS: PARoxetine 20 mg Tablet PO (10:42)
[2024-01-03] MEDS: gabapentin 300 mg Capsule PO (10:42)
[2024-01-03] MEDS: pantoprazole DR 40 mg Tablet PO (10:42)
[2024-01-03] MEDS: tamsulosin 0.4 mg Capsule PO (10:43)
== END 2024-01-03 10:44 | disposition home or self-care (01) ==
PROVIDERS: Student in an Organized Health Care Education/Training Program; Emergency Provider Family Medicine
DX: F10.229 Alcohol dependence with intoxication, unspecified (principal); F32.9 Major depressive disorder, single episode, unspecified; Y90.8 Blood alcohol level of 240 mg/100 ml or more; Z77.22 Contact with and (suspected) exposure to environmental tobacco smoke (acute) (chronic)
CPT/HCPCS: 36415; 80053; 80306; 80307; 81003; 81015; 85025; 99283

== ENCOUNTER 2024-01-14 13:04 | Emergency (ER) | payer MEDICAID, SELFPAY ==
[2023-12-27 15:20] VITALS: BP 128/98; BMI 17.0
--- NOTE | 2024-01-14 13:05 | XR_ITS ---
WS: [id number] Examination: XR knee LT 3V* [id number] Reason for Exam: injury Date: January 14, 2024 Comparison: None Findings: The bone density is maintained. There is no destruction There is no displaced fracture or dislocation. The joint spaces are maintained There is soft tissue swelling with a small amount of joint fluid suspected. XR/XR knee LT 3V* 63670 Impression: A joint effusion is suspected. There is no displaced fracture.
[2024-01-14 13:26] VITALS: BP 94/60; PULSE 90; RESP 17; TEMP 36.6; O2SAT 97
[2024-01-14 13:50] VITALS: BP 101/61; PULSE 91; O2SAT 96
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
[2024-01-14 14:26] LABS: Basophils % 0.3 %; Eosinophils # 0.1 10^3/uL (0.0-0.8); Eosinophils % 1.2 %; Hematocrit 40.7 % (37-53); Lymphocytes # 1.7 10^3/uL (0.8-4.8); Lymphocytes % 22.2 %; Mean Corpuscular HGB Conc 33.4 g/dL (30-55); Mean Corpuscular Hemoglobin 37.7 pg (27-33); Mean Corpuscular Volume 112.7 fl (82-101); Mean Platelet Volume 8.9 fL (7.4-10.4); Monocytes % 13.5 %; Neutrophils # 4.68 10^3/uL (1.8-7.7); Neutrophils % 62.4 %; Nucleated Red Blood Cells % 0 %; Platelet Count 225 10^3/cmm (157-399); Red Blood Count 3.61 10^6/uL (3.85-5.65); Red Cell Distribution Width 13.1 % (12.1-15.1); White Blood Count 7.49 10^3/uL (3.29-11.43)
[2024-01-14 14:43] LABS: Alanine Aminotransferase 21 U/L (0-41); Albumin Level 3.5 g/dL (3.5-5.2); Alkaline Phosphatase 77 U/L (40-130); Aspartate Amino Transferase 16 U/L (0-40); Blood Urea Nitrogen 11 mg/dL (6-20); Calcium 8.2 mg/dL (8.5-10.5); Carbon Dioxide 27 mmol/L (22-29); Chloride 101 mmol/L (98-107); Creatinine Clr Calc Pharmacy 127.4417; Globulin 2.9 g/dL (1.3-4.6); Glomerular Filtration Rate 120.9 mL/min (90-130); Glucose 88 mg/dL (65-115); Osmolality Calculated 285 mOsm/kg (285-295); Sodium 138 mmol/L (136-145); Total Bilirubin 0.2 mg/dL (0.15-1.2); Total Protein 6.4 g/dL (6.6-8.7)
[2024-01-14 14:45] LABS: Anion Gap 13.5 (5-19); Potassium 3.5 mmol/L (3.5-5.1)
[2024-01-14 14:51] VITALS: BP 101/61; PULSE 91; RESP 17; TEMP 36.6; O2SAT 96
== END 2024-01-14 14:53 | disposition home or self-care (01) ==
PROVIDERS: Emergency Provider Family Medicine
DX: L03.116 Cellulitis of left lower limb (principal); F10.20 Alcohol dependence, uncomplicated; F10.229 Alcohol dependence with intoxication, unspecified; Y90.9 Presence of alcohol in blood, level not specified
CPT/HCPCS: 36415; 73562; 80053; 85025; 87040; 99284

== ENCOUNTER 2024-04-08 20:23 | Emergency (ER) | payer MEDICAID, SELFPAY ==
[2023-12-27 15:20] VITALS: BP 128/98; BMI 17.0
[2024-04-08 20:26] VITALS: BP 122/86; PULSE 97; RESP 18; TEMP 36.4; O2SAT 91; BMI 22.8
--- NOTE | 2024-04-08 20:45 | XRR_ITS ---
PROCEDURE INFORMATION: Exam: XR Chest Exam date and time: 04/08/2024 10:09 PM Age: 48 years old Clinical indication: Other: Swelling; Additional info: Peripheral swelling TECHNIQUE: Imaging protocol: Radiologic exam of the chest. Views: 1 view. COMPARISON: CR XR chest 1V portable [id number] 06/22/2023 4:36 AM FINDINGS: Lungs: Central pulmonary vasculature congestive changes. No lobar consolidation. Pleural spaces: Unremarkable. No pleural effusion. No pneumothorax. Heart/Mediastinum: Unremarkable. No cardiomegaly. Bones/joints: Chronic changes about shoulder joint. XR/XR chest 1V portable [id number] IMPRESSION: Interval development of pulmonary congestion.
--- NOTE | 2024-04-08 20:47 | ED_ITS ---
HPI - General Adult 2 General: Chief complaint: General Medical Stated complaint: bilateral hand swelling and feet swelling Time Seen by Provider: 04/08/24 20:29 Source: patient Mode of arrival: EMS Limitations: no limitations History of Present Illness: Patient is a 48-year-old male who is brought into the emergency department from correction due to swelling to his face hands and feet for the past few days. Also reports a rash to his face. Denies any pertinent past medical history. He is reporting pain associated with the swelling, denies any history of congestive heart failure or nephrotic syndrome. Is not reporting any chest pain or shortness of breath. No history of high blood pressure, his blood pressure at this time is 122/86. No urinary symptoms. No other symptoms at this time. MD complaint: Swelling in hands and feet and face Onset (ago): day(s) Associated symptoms: Deny chest pain, dyspnea, headache(s), nausea, rash, palpitations or vomiting Related Data Home Medications Medication Instructions Recorded Confirmed fluticasone propionate 50 2 spray intranasal DAILY 06/09/23 11/22/23 mcg/actuation nasal spray,suspension lurasidone 40 mg tablet 40 mg PO QPM 09/22/23 11/22/23 olanzapine 10 mg disintegrating 10 mg PO BEDTIME 09/22/23 11/22/23 tablet paroxetine HCl 20 mg tablet 20 mg PO DAILY 09/22/23 11/22/23 quetiapine 200 mg tablet 200 mg PO BEDTIME 09/22/23 11/22/23 duloxetine 60 mg capsule,delayed 60 mg PO DAILY 11/22/23 11/22/23 release ondansetron 4 mg disintegrating 4 mg PO Q6H PRN Nausea And Vomiting 11/22/23 11/22/23 tablet Previous Rx's Medication Instructions Recorded gabapentin 300 mg capsule 300 mg PO TID 30 days #90 caps 04/04/23 pantoprazole 40 mg tablet,delayed 40 mg PO DAILY 30 days #30 tabs 04/04/23 release tamsulosin 0.4 mg capsule 0.4 mg PO DAILY 30 days #30 caps 04/04/23 naproxen 500 mg tablet (Naprosyn) 500 mg PO BID PRN pain #20 tabs 09/29/23 prednisone 20 mg tablet 60 mg (3 x 20 mg) PO ONCE 5 days 04/08/24 #15 tabs Allergies Allergy/AdvReac Type Severity Reaction Status Date / Time No Known Allergies Allergy Verified 04/08/24 20:45 Review of Systems 2 General: Reports: 10 or more systems reviewed and unremarkable except in HPI and below Const: Denies: fever(s), chills or fatigue Eyes: Denies: change in vision ENMT: Reports: other (Facial swelling); Denies: throat pain, ear or mastoid pain or nasal discharge Card: Denies: chest pain, palpitations, swelling of feet/ankles or lightheadedness Resp: Denies: dyspnea, productive cough or wheezing GI: Denies: abdominal pain, nausea, vomiting, diarrhea or constipation : Denies: flank pain, difficulty urinating, dysuria or urinary frequency Musc: Reports: extremity swelling (Bilateral hands and feet); Denies: neck pain, back pain or joint pain Skin/Breast: Denies: rash Neuro: Denies: headache(s), numbness in extremities or weakness in extremities PFSH ED 2 PFSH: Medical History Psychiatric care Atrial flutter Atrial fibrillation Methamphetamine abuse -UDS positive for amphetamines/THC Bipolar 1 disorder, manic, mild Depressive disorder, not elsewhere classified Adjustment disorder with mixed disturbance of emotions and conduct Alcohol use disorder -Has known history of alcohol abuse&DT Surgical History H/O hernia repair History of appendectomy Family History Other Alcoholism /alcohol abuse Social History Quit status (tobacco/nicotine): has tried quititng Number of times tried to quit tobacco: 4 Second hand smoke exposure: Yes Alcohol intake: current Substance/Drug Use: current Current gender identity: Male Physical Exam 2 Const: COMMON NORMALS: no acute distress and no limitations GENERAL APPEARANCE: cooperative, comfortable and well developed O RIENTATION/CONSCIOUSNESS: Yes awake HENMT: COMMON NORMALS: normocephalic, atraumatic and hearing grossly normal bilaterally HEAD & SCALP: normocephalic and atraumatic OTHER: Minor facial swelling noted at this time with psoriatic appearing rash Eye: COMMON NORMALS: Equal, round and reactive pupils present, EOMs intact bilaterally and conjunctivae normal CONJUNCTIVA: Yes conjunctivae normal P UPIL: Yes Equal, round and reactive pupils present Neck/C-Spine: COMMON NORMALS: full ROM, supple and no JVD Resp: COMMON NORMALS: normal respiratory effort, No retractions, No use of accessory muscles and clear to auscultation bilaterally AUSCULTATION: clear to auscultation bilaterally Cardio: COMMON NORMALS: no JVD, regular rate, regular rhythm, No clicks present (Cardio), No murmurs present (Cardio) and No rub (Cardio) RATE: r egular rate RHYTHM: regular rhythm GI: COMMON NORMALS: Normal to inspection, nondistended, normoactive bowel sounds present, Soft to palpation and non-tender AUSCULTATION: Yes normoactive bowel sounds PALPATION: Yes Soft to palpation RECTAL EXAM: Yes deferred Extremity: COMMON NORMALS: normal to inspection, full ROM and capillary refill normal NARRATIVE EXTREMITY EXAM: Edema is appreciable to his bilateral hands and feet, hands appear to be worse than his feet. There is no pitting to his edema. No skin changes to his calfs or unilateral edema appreciated at this time. Distal pulses palpable and 2+ to his lower extremities. Radial pulses 2+. Psych: COMMON NORMALS: mental status grossly normal and Normal thought process present THOUGHT PROCESS: Normal thought process present Course 2 Vital Signs: Vital signs: Vital Signs Temperature 102.9 F H 04/08/24 23:41 Pulse Rate 117 H 04/08/24 22:23 Respiratory Rate 20 H 04/08/24 22:23 Blood Pressure 114/83 04/08/24 22:23 Pulse Oximetry 94 04/08/24 22:23 Oxygen Delivery Me thod Room Air 04/08/24 22:23 [facility] - General Adult Medical Decision Making Patient presented from correction for few days of swelling to his hands and feet. On exam his hand the feet were swollen, feet were only minimally swollen, his hands were worse. He also had some swelling to his face and an overlying rash. Initially gave him a shot of Decadron and upon recheck did appear to slightly improve the rash. Checked his urine, there is 2+ protein. His kidney function appeared normal on CMP, his CBC was unremarkable with a normal white count. He was a very hard stick here in the emergency department, this caused him a lot of anxiety and his heart rate was elevated greater than 100 sometime after this, was given Ativan to help calm down. I cannot rule out that his swelling is related to his kidneys or heart, so we will have him follow-up with his primary care to be reevaluated in for referral to these specialists. His BNP today was unremarkable for any signs of a congestive heart failure, and there was no pitting to his edema. At this time he will be discharged back to the correction, though I did sit down and have a conversation with him and ashley in regards to reasons to return such that if he starts having chest pain, his swelling does not improve despite outpatient steroid therapy, shortness of breath, or any unilateral swelling to his lower extremity that would indicate any sign of a DVT, to return immediately. He endorses understanding. I spoke to Dr. Baptiste about this patient in regards to his disposition. Just prior to discharge, his temperature was retaken and found to be 102.9 and he had remained tachycardic. Upon further questioning he is an IV drug user, and was arrested yesterday, prior to being arrested had last used methamphetamines. With the swelling he was having and this history in mind, I wanted to rule out endocarditis despite no physical exam findings or complaints of chest pain or shortness of breath. Ordered a troponin which was normal. EKG showed sinus tachycardia but there was no global ST elevation or depression. With the vitals also ordered some infectious markers his lactic was normal. ESR and CRP were normal. Blood cultures also ordered. After being given ibuprofen and Tylenol his temperature brought down to 98.6, and plan to discharge back stays in place. Likely the fever and his overall anxiety is now secondary to the meth withdrawal after learning this information. Return precautions still given, he will be discharged back to correction at this time. Lab Data 04/08/24 22:25 04/08/24 22:32 Radiology Impressions Chest X-Ray 04/08/24 20:45 IMPRESSION: Interval development of pulmonary congestion. Laboratory Results WBC 8.74 10^3/uL (3.29-11.43) 04/08/24 22:25 RBC 3.20 10^6/uL (3.85-5.65) L 04/08/24 22:25 Hgb 11.30 g/dL (11.27-16.99) 04/08/24 22:25 Hct 34.7 % (37-53) L 04/08/24 22: MCV 108.4 fl (82-101) H 04/08/24 22: MCH 35.3 pg (27-33) H 04/08/24 22: MCHC 32.6 g/dL (30-55) 04/08/24: RDW 14.5 % (12.1-15.1) 04/08/24: Plt Count 220 10^3/cmm (157-399) 04/08/24 22: MPV 10.0 fL (7.4-10.4) 04/08/24: Lymph % (Auto) Not Reportable 04/08/24: [place] % (Auto) Not Reportable 04/08/24: Lymph # (Auto) Not Reportable 04/08/24: [place] # (Auto) Not Reportable 04/08/24: Total Counted 100 (0-100) 04/08/24 22: Atypical Lymphs % 11.0 % (0-5) H 04/08/24 22: Segmented Neutrophils 55 % 04/08/24: Band Neutrophils Not Reportable 04/08/24: Absolute Lymphocytes 3.6 10^3/cmm (1.2-3.4) H 04/08/24 22: Lymphocytes (Manual) 30 % 04/08/24: Monocytes (Manual) 3.0 % 04/08/24: Absolute Monocytes 0.3 10^3/cmm (0.1-0.6) 04/08/24 22: Eosinophils (Manual) 1 % 04/08/24: Absolute Eosinophils 0.1 10^3/cmm (0.0-0.7) 04/08/24: Basophils (Manual) 0.0 % 04/08/24: Absolute Basophils 0.0 10^3/cmm (0.0-0.2) 04/08/24: Platelet Estimate Normal (Normal) 04/08/24 22: ESR 4 mm/hr (0-10) 04/08/24 22:32 Sodium 136 mmol/L (136-145) 04/08/24 22:32 Potassium 4.2 mmol/L (3.5-5.1) 04/08/24 22:32 Chloride 103 mmol/L (98-107) 04/08/24 22:32 Carbon Dioxide 24 mmol/L (22-29) 04/08/24 22:32 Anion Gap 13.2 (5-19) 04/08/24 22:32 BUN 17 mg/dL (6-20) 04/08/24 22:32 Creatinine 0.6 mg/dL (0.7-1.2) L 04/08/24 22:32 GFR Calculation 144.4 mL/min (90-130) H 04/08/24 22:32 Glucose 132 mg/dL (65-115) H 04/08/24 22:32 Calculated Osmolality 285 mOsm/kg (285-295) 04/08/24 22:32 Lactic Acid 1.9 mmol/L (0.5-2.2) 04/08/24 23:55 Calcium 7.2 mg/dL (8.5-10.5) L 04/08/24 22:32 Total Bilirubin 0.3 mg/dL (0.15-1.2) 04/08/24 22:32 AST 63 U/L (0-40) H 04/08/24 22:32 ALT 54 U/L (0-41) H 04/08/24 22:32 Alkaline Phosphatase 183 U/L (40-130) H 04/08/24 22:32 Troponin T Baseline 7 ng/L (0-15) 04/08/24 22:32 C-Reactive Protein 26.1 mg/L (0.0-4.9) H 04/08/24 22:32 NT-Pro-B Natriuret Pep 383 pg/mL (0-125) H 04/08/24 22:32 Total Protein 5.9 g/dL (6.6-8.7) L 04/08/24 22:32 Albumin 3.0 g/dL (3.5-5.2) L 04/08/24 22:32 Globulin 2.9 g/dL (1.3-4.6) 04/08/24 22:32 Urine Color Dark yellow (Yellow) A 04/08/24 21:22 Urine Appearance Clear (CLEAR) 04/08/24 21:22 Urine pH 6.0 (5-7) 04/08/24 21:22 Ur Specific [place] 1.027 (1.005-1.030) 04/08/24 21:22 Urine Protein 2+ (Negative) A 04/08/24 21:22 Urine Glucose (UA) Negative (Normal) 04/08/24 21:22 Urine Ketones Negative (Negative) 04/08/24 21:22 Urine Blood Negative (Negative) 04/08/24 21:22 Urine Nitrate Negative (Negative) 04/08/24 21:22 Urine Bilirubin 1+ (Negative) H 04/08/24 21:22 Urine Urobilinogen 4.0 mg/dL (Negative) H 04/08/24 21:22 Ur Leukocyte Esterase Negative (Negative) 04/08/24 21:22 Urine RBC 0-2 /hpf (0-2) 04/08/24 21:22 Urine WBC 0-5 /hpf (0-5) 04/08/24 21:22 Ur Squamous Epith Cells 0-5 /hpf (0-5) 04/08/24 21:22 Amorphous Sediment Not Reportable 04/08/24 21:22 Urine Bacteria None seen /hpf (NONE) 04/08/24 21:22 Hyaline Casts 0.81 /lpf 04/08/24 21:22 All radiology interpretation(s) finalized by discharge Discharge Plan Discharge Patient Disposition: Home Clinical Impression: Swelling of both upper extremities, Swelling of both lower extremities, Withdrawal from methamphetamine Condition: Stable Prescriptions: New prednisone 20 mg tablet 60 mg PO ONCE 5 Days Qty: 15 0RF No Action tamsulosin 0.4 mg Capsule 0.4 mg PO DAILY 30 Days Qty: 30 1RF pantoprazole 40 mg Tablet,Delayed Release (Dr/Ec) 40 mg PO DAILY 30 Days Qty: 30 1RF gabapentin 300 mg Capsule 300 mg PO TID 30 Days Qty: 90 1RF quetiapine 200 mg tablet 200 mg PO BEDTIME paroxetine HCl 20 mg tablet 20 mg PO DAILY olanzapine 10 mg tablet,disintegrating 10 mg PO BEDTIME lurasidone 40 mg tablet 40 mg PO QPM naproxen [Naprosyn] 500 mg tablet 500 mg PO BID PRN (Reason: pain) Qty: 20 0RF fluticasone propionate 50 mcg/actuation spray,suspension 2 spray INTRANASAL DAILY duloxetine 60 mg capsule,delayed release(DR/EC) 60 mg PO DAILY ondansetron 4 mg tablet,disintegrating 4 mg PO Q6H PRN (Reason: Nausea And Vomiting) Discharge Orders: Discharge ED (Routine); Ordered 04/08/24 Ordered By: Anthony Springer Patient Instructions: Edema (ED) Activity Restrictions/Additional Instructions: Take steroids. Please follow-up with your primary care provider later this week for general reevaluation, and potential referral to nephrology or cardiology for further workup. If you start develop any chest pain, your swelling worsens, or any other concerning symptoms please return to the emergency department as discussed. Coding Level of Care Code ED Settlement Processor for Camila Alvares
[2024-04-08] MEDS: dexamethasone 10 mg/mL INJ IM (21:01)
[2024-04-08 21:02] VITALS: BP 125/88; PULSE 101; RESP 20; O2SAT 91
[2024-04-08 21:46] LABS: Bilirubin Urine 1+ (Negative); Blood Urine Negative (Negative); Glucose Urine UA Negative (Normal); Ketones Urine Negative (Negative); Leukocyte Esterase Urine Negative (Negative); Nitrate Urine Negative (Negative); Protein Urine 2+ (Negative); Specific Gravity, Urine 1.027 (1.005-1.030); Urine Appearance Clear (CLEAR); Urine Color Dark Yellow (Yellow)
[2024-04-08 21:51] LABS: Add Urine Microscopic? YES; Bacteria Urine None Seen /hpf; Hyaline Casts Urine 0.81 /lpf; RBC Urine 0-2 /hpf (0-2); Squamous Epithelial Cell Urine 0-5 /hpf (0-5); WBC Urine 0-5 /hpf (0-5)
[2024-04-08] MEDS: LORazepam 1 mg Tablet PO ×2 (21:52→23:33)
[2024-04-08 22:23] VITALS: BP 114/83; PULSE 117; RESP 20; O2SAT 94
[2024-04-08 22:37] LABS: Hematocrit 34.7 % (37-53); Mean Corpuscular HGB Conc 32.6 g/dL (30-55); Mean Corpuscular Hemoglobin 35.3 pg (27-33); Mean Corpuscular Volume 108.4 fl (82-101); Platelet Count 220 10^3/cmm (157-399); Red Cell Distribution Width 14.5 % (12.1-15.1); White Blood Count 8.74 10^3/uL (3.29-11.43)
[2024-04-08 23:06] LABS: Alanine Aminotransferase 54 U/L (0-41); Alkaline Phosphatase 183 U/L (40-130); Blood Urea Nitrogen 17 mg/dL (6-20); Calcium 7.2 mg/dL (8.5-10.5); Carbon Dioxide 24 mmol/L (22-29); Chloride 103 mmol/L (98-107); Creatinine Clr Calc Pharmacy 146.9391; Globulin 2.9 g/dL (1.3-4.6); Glomerular Filtration Rate 144.4 mL/min (90-130); Glucose 132 mg/dL (65-115); NT Pro B Type Natriuretic Pept 383 pg/mL (0-125); Osmolality Calculated 285 mOsm/kg (285-295); Sodium 136 mmol/L (136-145); Total Bilirubin 0.3 mg/dL (0.15-1.2); Total Protein 5.9 g/dL (6.6-8.7)
[2024-04-08 23:07] LABS: Anion Gap 13.2 (5-19); Aspartate Amino Transferase 63 U/L (0-40); Potassium 4.2 mmol/L (3.5-5.1)
[2024-04-08 23:14] LABS: Total Cells Counted 100 (0-100)
[2024-04-08 23:15] LABS: Band Neutrophils Absolute 0.1 10^3/cmm (0.0-1.2)
[2024-04-08 23:16] LABS: Absolute Eosinophils 0.1 10^3/cmm (0.0-0.7); Absolute Segmented Neutrophil 4.8 10/cmm (1.6-7.1); Eosinophils 1 %; Lymphocytes 30 %; Lymphocytes Absolute 3.6 10^3/cmm (1.2-3.4); Monocytes Absolute 0.3 10^3/cmm (0.1-0.6); Segmented Neutrophils 55 %
[2024-04-08 23:18] LABS: Platelet Estimate Normal (Normal)
[2024-04-08 23:41] VITALS: TEMP 39.4
--- NOTE | 2024-04-08 23:41 | ECG_ITS ---
[facility] Test Date: 2024-04[facility]08 Pat Name: Ludin Gordon Department: Room: Gender: Male Information Management Manager: : 1975 Requested By: Anthony Nascimento Order Number: [id number] Jaime MD: Jesus Tellez M.D. Measurements Intervals [place] Rate: 126 P: 35 [place]: 136 QRS: 68 QRSD: 75 T: 57 QT: 276 QTc: 400 Interpretive Statements SINUS TACHYCARDIA ABNORMAL RHYTHM ECG Compared to ECG 11/22/2023 03:22:28 Sinus rhythm no longer present Electronically Signed On 04-09-2024 21:50:40 PIPE MANUFACTURE SUPERVISOR by Jesus Tellez M.D. [id number]
[2024-04-08 23:57] LABS: Erythrocyte Sedimentation Rate 4 mm/hr (0-10)
[2024-04-09 00:07] LABS: Troponin(5th) Baseline 7 ng/L (0-15)
[2024-04-09] MEDS: ibuprofen 600 mg Tablet 800 MG PO (00:07)
[2024-04-09] MEDS: acetaminophen 500 mg Tablet 1000 MG PO (00:08)
[2024-04-09 00:11] LABS: C Reactive Protein 26.1 mg/L (0.0-4.9)
[2024-04-09 00:42] LABS: Lactic Sepsis W/Reflex 1.9 mmol/L (0.5-2.2)
[2024-04-09 00:53] VITALS: BP 113/73; PULSE 104; O2SAT 96
== END 2024-04-09 00:55 | disposition home or self-care (01) ==
PROVIDERS: Emergency Provider Physician Assistant
DX: R22.33 Localized swelling, mass and lump, upper limb, bilateral (principal); R22.43 Localized swelling, mass and lump, lower limb, bilateral; F15.23 Other stimulant dependence with withdrawal; Z72.0 Tobacco use
CPT/HCPCS: 36415; 71045; 80053; 81001; 83605; 83880; 84484; 85007; 85025; 85651; 86140; 87040; 93005; 96372; 99285; J1100

== ENCOUNTER 2024-04-18 20:40 | Emergency (ER) | payer MEDICAID, SELFPAY ==
[2023-12-27 15:20] VITALS: BP 128/98; BMI 17.0
[2024-04-18 20:40] VITALS: BMI 21.7
--- NOTE | 2024-04-18 20:43 | ECG_ITS ---
[facility] Date: 2024-04-18 Pat Name: Ludin Gordon Department: Room: Gender: Male Manager Rail: : 1975 Requested By: Pete Galdamez Order Number: [id number] Yeni MD: Jesus Tellez M.D. Measurements Intervals [place] Rate: 94 P: 74 [place]: 129 QRS: 92 QRSD: 83 T: 101 QT: 331 QTc: 415 Interpretive Statements SINUS RHYTHM BORDERLINE RIGHT AXIS DEVIATION [QRS AXIS > 90] LOW QRS VOLTAGE IN EXTREMITY LEADS [QRS DEFLECTION < 0.5 mV IN LIMB LEADS] MODERATE ST DEPRESSION [0.05+ mV ST DEPRESSION] Compared to ECG 04/08/2024 23:43:58 Low QRS voltage now present ST (T wave) deviation now present Sinus tachycardia no longer present Electronically Signed On 04-19-2024 20:24:51 CNC MAINTENANCE MECHANIC by Jesus Tellez M.D. [id number]
[2024-04-18 20:47] VITALS: BP 108/67; PULSE 98; RESP 14; TEMP 37.7; O2SAT 97
[2024-04-18] MEDS: OLANZapine 10 mg ODT 20 MG PO (21:16)
[2024-04-18] MEDS: ketorolac 30 mg/mL INJ IVP (21:16)
[2024-04-18 21:22] LABS: Basophils # 0.1 10^3/uL (0.0-0.1); Basophils % 0.6 %; Eosinophils # 0.1 10^3/uL (0.0-0.8); Eosinophils % 0.8 %; Hematocrit 37.5 % (37-53); Lymphocytes # 4.9 10^3/uL (0.8-4.8); Lymphocytes % 56.6 %; Mean Corpuscular Hemoglobin 35.4 pg (27-33); Mean Corpuscular Volume 110.6 fl (82-101); Mean Platelet Volume 9.4 fL (7.4-10.4); Monocytes # 0.8 10^3/uL (0.2-0.9); Monocytes % 9.1 %; Neutrophils # 2.84 10^3/uL (1.8-7.7); Neutrophils % 32.7 %; Nucleated Red Blood Cells % 0 %; Platelet Count 332 10^3/cmm (157-399); Red Blood Count 3.39 10^6/uL (3.85-5.65); Red Cell Distribution Width 14.7 % (12.1-15.1); White Blood Count 8.68 10^3/uL (3.29-11.43)
[2024-04-18 21:41] LABS: Alanine Aminotransferase 33 U/L (0-41); Albumin Level 3.1 g/dL (3.5-5.2); Alkaline Phosphatase 112 U/L (40-130); Anion Gap 10.3 (5-19); Aspartate Amino Transferase 38 U/L (0-40); Blood Urea Nitrogen 19 mg/dL (6-20); Calcium 7.7 mg/dL (8.5-10.5); Carbon Dioxide 28 mmol/L (22-29); Chloride 103 mmol/L (98-107); Creatinine Clr Calc Pharmacy 123.6044; Glomerular Filtration Rate 120.9 mL/min (90-130); Glucose 113 mg/dL (65-115); Lipase 55 U/L (13-60); Osmolality Calculated 287 mOsm/kg (285-295); Potassium 4.3 mmol/L (3.5-5.1); Sodium 137 mmol/L (136-145); Total Bilirubin 0.3 mg/dL (0.15-1.2); Total Protein 6.1 g/dL (6.6-8.7)
[2024-04-18 21:44] LABS: Slide Review Slide Review Perform
[2024-04-18 22:11] VITALS: BP 111/71; PULSE 88; RESP 16; O2SAT 96
--- NOTE | 2024-04-18 22:23 | ED_ITS ---
HPI - Chest Pain 2 General: Chief Complaint: Chest Pain Stated Complaint: CHEST PAIN Time Seen by Provider: 04/18/24 20:44 History of Present Illness: 48-year-old male patient well-known to [facility] emergency department. He presents with right upper quadrant pain since this evening earlier. No vomiting. He has been nauseated. No diarrhea. No blood in the stool. He is not short of breath Related Data Home Medications Medication Instructions Recorded Confirmed fluticasone propionate 50 2 spray intranasal DAILY 06/09/23 11/22/23 mcg/actuation nasal spray,suspension lurasidone 40 mg tablet 40 mg PO QPM 09/22/23 11/22/23 olanzapine 10 mg disintegrating 10 mg PO BEDTIME 09/22/23 11/22/23 tablet paroxetine HCl 20 mg tablet 20 mg PO DAILY 09/22/23 11/22/23 quetiapine 200 mg tablet 200 mg PO BEDTIME 09/22/23 11/22/23 duloxetine 60 mg capsule,delayed 60 mg PO DAILY 11/22/23 11/22/23 release ondansetron 4 mg disintegrating 4 mg PO Q6H PRN Nausea And Vomiting 11/22/23 11/22/23 tablet Previous Rx's Medication Instructions Recorded gabapentin 300 mg capsule 300 mg PO TID 30 days #90 caps 04/04/23 pantoprazole 40 mg tablet,delayed 40 mg PO DAILY 30 days #30 tabs 04/04/23 release tamsulosin 0.4 mg capsule 0.4 mg PO DAILY 30 days #30 caps 04/04/23 naproxen 500 mg tablet (Naprosyn) 500 mg PO BID PRN pain #20 tabs 09/29/23 olanzapine 10 mg tablet (Zyprexa) 10 mg PO QPM #30 tabs 04/18/24 Allergies Allergy/AdvReac Type Severity Reaction Status Date / Time No Known Allergies Allergy Verified 04/08/24 20:45 PFSH ED 2 PFSH: Medical History Psychiatric care Atrial flutter Atrial fibrillation Methamphetamine abuse -UDS positive for amphetamines/THC Bipolar 1 disorder, manic, mild Depressive disorder, not elsewhere classified Adjustment disorder with mixed disturbance of emotions and conduct Alcohol use disorder -Has known history of alcohol abuse&DT Surgical History H/O hernia repair History of appendectomy Family History Other Alcoholism /alcohol abuse Social History Quit status (tobacco/nicotine): has tried quititng Number of times tried to quit tobacco: 4 Second hand smoke exposure: Yes Alcohol intake: current Substance/Drug Use: current Current gender identity: Male Physical Exam 2 Const: COMMON NORMALS: no acute distress GENERAL APPEARANCE: cooperative; not ill appearing and not frail appearing HENMT: COMMON NORMALS: normocephalic, atraumatic and Normal external nose present HEAD & SCALP: normocephalic and atraumatic FACE & SINUS: normal facial exam and face symmetric NOSE: Normal external nose present Eye: COMMON NORMALS: Equal, round and reactive pupils present and EOMs intact bilaterally PUPIL: Yes Equal, round and reactive pupils present Neck/C-Spine: GENERAL: Yes trachea midline Chest: CHEST: Yes Symmetrical chest wall rise Resp: COMMON NORMALS: normal respiratory effort, No retractions, No use of accessory muscles and clear to auscultation bilaterally AUSCULTATION: clear to auscultation bilaterally Cardio: COMMON NORMALS: regular rate and regular rhythm RATE: regular rate RHYTHM: regular rhythm GI: COMMON NORMALS: Normal to inspection, nondistended, normoactive bowel sounds present PALPATION: Yes Tenderness to palpation present (GI) Details: RUQ and No Guarding due to palpation present (GI) Extremity: COMMON NORMALS: no pedal edema Neuro: JOSÉ MIGUEL COMA SCALE: document GCS findings [place] coma scale eye opening: Spontaneous José Miguel coma scale verbal response: Orientated [place] coma scale motor response: Obey commands [place] coma scale total score: 15 S ENSORY EXAM: Yes extremities (intact) Psych: COMMON NORMALS: speech normal SPEECH: Yes normal speech Skin: COMMON NORMALS: no rashes or lesions noted GENERAL SKIN EXAM: no rashes or lesions noted Course 2 Vital Signs: Vital signs: Vital Signs Temperature 99.8 F H 04/18/24 20:47 Pulse Rate 88 04/18/24 22:11 Respiratory Rate 16 04/18/24 22:11 Blood Pressure 111/71 04/18/24 22:11 Pulse Oximetry 96 04/18/24 22:11 Oxygen Delivery Me thod Room Air 04/18/24 20:47 MDM - Chest Pain Medical Decision Making CBC is normal. BMP is normal. Lipase is normal. Liver enzymes are normal. EKG is nonacute. He is improved after Toradol. He will be discharged. He asks for something for anxiety while he is incarcerated. Zyprexa is ordered for him Lab Data 04/18/24 20:30 04/18/24 20:30 Laboratory Results WBC 8.68 10^3/uL (3.29-11.43) 04/18/24 20:30 RBC 3.39 10^6/uL (3.85-5.65) L 04/18/24 20:30 Hgb 12.00 g/dL (11.27-16.99) 04/18/24 20:30 Hct 37.5 % (37-53) 04/18/24 20:30 MCV 110.6 fl (82-101) H 04/18/24 20:30 MCH 35.4 pg (27-33) H 04/18/24 20:30 MCHC 32.0 g/dL (30-55) 04/18/24 20:30 RDW 14.7 % (12.1-15.1) 04/18/24 20:30 Plt Count 332 10^3/cmm (157-399) 04/18/24 20:30 MPV 9.4 fL (7.4-10.4) 04/18/24 20:30 Neut % (Auto) 32.7 % 04/18/24 20:30 Lymph % (Auto) 56.6 % 04/18/24 20:30 [place] % (Auto) 9.1 % 04/18/24 20:30 Eos % (Auto) 0.8 % 04/18/24 20:30 Baso % (Auto) 0.6 % 04/18/24 20:30 Neut # (Auto) 2.84 10^3/uL (1.8-7.7) 04/18/24 20:30 Lymph # (Auto) 4.9 10^3/uL (0.8-4.8) H 04/18/24 20:30 [place] # (Auto) 0.8 10^3/uL (0.2-0.9) 04/18/24 20:30 Eos # (Auto) 0.1 10^3/uL (0.0-0.8) 04/18/24 20:30 Baso # (Auto) 0.1 10^3/uL (0.0-0.1) 04/18/24 20:30 Nucleated RBC % (auto) 0 % 04/18/24 20:30 Nucleated RBCs # 0.0 /100WBC 04/18/24 20:30 Sodium 137 mmol/L (136-145) 04/18/24 20:30 Potassium 4.3 mmol/L (3.5-5.1) 04/18/24 20:30 Chloride 103 mmol/L (98-107) 04/18/24 20:30 Carbon Dioxide 28 mmol/L (22-29) 04/18/24 20:30 Anion Gap 10.3 (5-19) 04/18/24 20:30 BUN 19 mg/dL (6-20) 04/18/24 20:30 Creatinine 0.7 mg/dL (0.7-1.2) 04/18/24 20:30 GFR Calculation 120.9 mL/min (90-130) 04/18/24 20:30 Glucose 113 mg/dL (65-115) 04/18/24 20:30 Calculated Osmolality 287 mOsm/kg (285-295) 04/18/24 20:30 Calcium 7.7 mg/dL (8.5-10.5) L 04/18/24 20:30 Total Bilirubin 0.3 mg/dL (0.15-1.2) 04/18/24 20:30 AST 38 U/L (0-40) 04/18/24 20:30 ALT 33 U/L (0-41) 04/18/24 20:30 Alkaline Phosphatase 112 U/L (40-130) 04/18/24 20:30 Total Protein 6.1 g/dL (6.6-8.7) L 04/18/24 20:30 Albumin 3.1 g/dL (3.5-5.2) L 04/18/24 20:30 Globulin 3.0 g/dL (1.3-4.6) 04/18/24 20:30 Lipase 55 U/L (13-60) 04/18/24 20:30 No radiology studies performed this visit Discharge Plan Discharge Patient Disposition: Home Clinical Impression: Abdominal pain in male, Anxiety Condition: Stable Prescriptions: New olanzapine [Zyprexa] 10 mg tablet 10 mg PO QPM Qty: 30 0RF No Action tamsulosin 0.4 mg Capsule 0.4 mg PO DAILY 30 Days Qty: 30 1RF pantoprazole 40 mg Tablet,Delayed Release (Dr/Ec) 40 mg PO DAILY 30 Days Qty: 30 1RF gabapentin 300 mg Capsule 300 mg PO TID 30 Days Qty: 90 1RF quetiapine 200 mg tablet 200 mg PO BEDTIME paroxetine HCl 20 mg tablet 20 mg PO DAILY olanzapine 10 mg tablet,disintegrating 10 mg PO BEDTIME lurasidone 40 mg tablet 40 mg PO QPM naproxen [Naprosyn] 500 mg tablet 500 mg PO BID PRN (Reason: pain) Qty: 20 0RF fluticasone propionate 50 mcg/actuation spray,suspension 2 spray INTRANASAL DAILY duloxetine 60 mg capsule,delayed release(DR/EC) 60 mg PO DAILY ondansetron 4 mg tablet,disintegrating 4 mg PO Q6H PRN (Reason: Nausea And Vomiting) Discharge Orders: Discharge ED (Routine); Ordered 04/18/24 Ordered By: Pete Mccurdy Patient Instructions: Abdominal Pain (ED), Opioid Safety, Pain Management Activity Restrictions/Additional Instructions: Return for fever, vomiting liquids, blood in the stool, other concerning symptoms. Coding Level of Care Code ED Tow Truck Operator for Camila Alvares
== END 2024-04-18 22:56 | disposition home or self-care (01) ==
PROVIDERS: Emergency Provider Emergency Medicine
DX: R10.11 Right upper quadrant pain (principal); F41.9 Anxiety disorder, unspecified; Z72.0 Tobacco use
CPT/HCPCS: 80053; 83690; 85025; 93005; 96374; 99284; J1885

== ENCOUNTER 2024-04-21 19:14 | Emergency (ER) | payer MEDICAID, SELFPAY ==
[2023-12-27 15:20] VITALS: BP 128/98; BMI 17.0
[2024-04-21 19:20] VITALS: BP 96/62; PULSE 87; RESP 18; TEMP 36.7; O2SAT 96; BMI 21.7
--- NOTE | 2024-04-21 19:53 | W.ED.MALEGU ---
HPI - Male Genitourinary General: Chief complaint: Urogenital-Male Stated complaint: urine issue Time Seen by Provider: 04/21/24 19:30 Source: patient Mode of arrival: EMS Limitations: no limitations History of Present Illness: Patient is a 48-year-old male who presents to the emergency department planing of lower abdominal pain with hematuria beginning today. [facility], has been seen here multiple times in the past. States he has had 3 episodes of hematuria, and the last time he voided he noticed clots. History of appendectomy, still has a gallbladder. No nausea or vomiting, no fever, no other symptoms at this time. MD Complaint: other (Hematuria with lower abdominal pain) Onset (ago): hour(s) Duration: progressively worsening Location: abdomen Associated symptoms: Reports hematuria; Deny dysuria, nausea or vomiting Related Data Home Medications Medication Instructions Recorded Confirmed fluticasone propionate 50 2 spray intranasal DAILY 06/09/23 11/22/23 mcg/actuation nasal spray,suspension lurasidone 40 mg tablet 40 mg PO QPM 09/22/23 11/22/23 olanzapine 10 mg disintegrating 10 mg PO BEDTIME 09/22/23 11/22/23 tablet paroxetine HCl 20 mg tablet 20 mg PO DAILY 09/22/23 11/22/23 quetiapine 200 mg tablet 200 mg PO BEDTIME 09/22/23 11/22/23 duloxetine 60 mg capsule,delayed 60 mg PO DAILY 11/22/23 11/22/23 release ondansetron 4 mg disintegrating 4 mg PO Q6H PRN Nausea And Vomiting 11/22/23 11/22/23 tablet Previous Rx's Medication Instructions Recorded gabapentin 300 mg capsule 300 mg PO TID 30 days #90 caps 04/04/23 pantoprazole 40 mg tablet,delayed 40 mg PO DAILY 30 days #30 tabs 04/04/23 release tamsulosin 0.4 mg capsule 0.4 mg PO DAILY 30 days #30 caps 04/04/23 naproxen 500 mg tablet (Naprosyn) 500 mg PO BID PRN pain #20 tabs 09/29/23 olanzapine 10 mg tablet (Zyprexa) 10 mg PO QPM #30 tabs 04/18/24 Allergies Allergy/AdvReac Type Severity Reaction Status Date / Time No Known Allergies Allergy Verified 04/08/24 20:45 Review of Systems General: Reports: 10 or more systems reviewed and unremarkable except in HPI and below Const: Denies: fever(s), chills, change in appetite, change in weight or diaphoresis ENMT: Denies: throat pain or hoarseness Card: Denies: chest pain, palpitations or lightheadedness Resp: Denies: dyspnea, productive cough or wheezing GI: Reports: abdominal pain; Denies: nausea, vomiting, diarrhea, constipation, bloating, change in stool character or hematochezia : Reports: hematuria; Denies: flank pain, difficulty urinating, dysuria, urinary frequency or urinary urgency Musc: Denies: neck pain or back pain Skin/Breast: Denies: rash or new lesions Neuro: Denies: headache(s) or dizziness PFSH ED PFSH: Medical History Psychiatric care Atrial flutter Atrial fibrillation Methamphetamine abuse -UDS positive for amphetamines/THC Bipolar 1 disorder, manic, mild Depressive disorder, not elsewhere classified Adjustment disorder with mixed disturbance of emotions and conduct Alcohol use disorder -Has known history of alcohol abuse&DT Surgical History H/O hernia repair History of appendectomy Family History Other Alcoholism /alcohol abuse Social History Quit status (tobacco/nicotine): has tried quititng Number of times tried to quit tobacco: 4 Second hand smoke exposure: Yes Alcohol intake: current Substance/Drug Use: current Current gender identity: Male Physical Exam Const: COMMON NORMALS: no acute distress, average body habitus, patient oriented x3, no limitations, healthy appearing, alert and well nourished GENERAL APPEARANCE: cooperative and comfortable ORIENTATION/CONSCIOUSNESS: Yes awake HENMT: COMMON NORMALS: normocephalic, atraumatic, hearing grossly normal bilaterally, external ears normal, Normal external nose present, Normal nasal mucous membranes and turbinates present and moist oral mucous membranes HEAD & SCALP: normocephalic and atraumatic NOSE: Normal external nose present and Normal nasal mucous membranes and turbinates present EXTERNAL EAR: Yes external ears normal Eye: COMMON NORMALS: Equal, round and reactive pupils present, EOMs intact bilaterally, conjunctivae normal and normal visual cloud by confrontation CONJUNCTIVA: Yes conjunctivae normal PUPIL: Yes Equal, round and reactive pupils present Neck/C-Spine: COMMON NORMALS: full ROM, supple, no meningeal signs and no JVD Resp: COMMON NORMALS: normal respiratory effort, No retractions, No use of accessory muscles and clear to auscultation bilaterally AUSCULTATION: clear to auscultation bilaterally, no crackles, no rales, no rhonchi and no wheezes Cardio: COMMON NORMALS: no JVD, regular rate, regular rhythm, S1 normal heart sound present, S2 normal heart sound present, No gallops present (Cardio), No clicks present (Cardio), No murmurs present (Cardio), No rub (Cardio) and Peripheral pulses 2+ throughout RATE: regular rate RHYTHM: regular rhythm HEART SOUNDS: S1 normal heart sound present and S2 normal heart sound present PERIPHERAL PULSES: Peripheral pulses 2+ throughout GI: COMMON NORMALS: Normal to inspection, nondistended, normoactive bowel sounds present, Soft to palpation, No hepatosplenomegaly present and no masses AUSCULTATION: Yes normoactive bowel sounds PALPATION: Yes Soft to palpation, Yes Tenderness to palpation present (GI) (Diffuse tenderness to light palpation, worse to the bilateral low quadrants), No Guarding due to palpation present (GI), No Rigid due to palpation and Yes No hepatosplenomegaly present RECTAL EXAM: Yes deferred : OTHER: Bilateral CVA tenderness Extremity: COMMON NORMALS: normal to inspection and full ROM Neuro: COMMON NORMALS: patient oriented x3, moves all extremities, no focal motor deficits and no sensory deficits noted SENSORIUM/ORIENTATION: Yes alert MENINGEAL SIGNS: Yes no meningeal signs Psych: COMMON NORMALS: mental status grossly normal, cooperative and speech normal SPEECH: Yes normal speech Skin: COMMON NORMALS: no rashes or lesions noted GENERAL SKIN EXAM: no rashes or lesions noted Course Vital Signs: Vital signs: Vital Signs Temperature 98.1 F 04/21/24 19:20 Pulse Rate 87 04/21/24 19:20 Respiratory Rate 18 04/21/24 19:20 Blood Pressure 96/62 04/21/24 19:20 Pulse Oximetry 96 04/21/24 19:20 Oxygen Delivery Me thod Room Air 04/21/24 19:20 MDM - Male Medical Decision Making Patient [facility], has been seen here multiple times in the past. Complaint was some hematuria and lower abdominal pain beginning today, urinalysis does not demonstrate any signs of infection or blood whatsoever. He is CBC and CMP also was unremarkable, normal white count. Hemoglobin slightly dropped from last time, instructed him to follow-up with primary care to recheck his labs after discharge. He did request breathing treatment here as well as specifically something for anxiety, did give Ativan and 1 DuoNeb and we will have him discharged [facility]. Return precautions were given, I do not think there is any intra-abdominal process at this time, not warranting CT scan. He endorses understanding to return. Lab Data 04/21/24 20:08 04/21/24 20:08 Laboratory Results WBC 7.41 10^3/uL (3.29-11.43) 04/21/24 20:08 RBC 3.19 10^6/uL (3.85-5.65) L 04/21/24 20:08 Hgb 11.10 g/dL (11.27-16.99) L 04/21/24 20:08 Hct 35.3 % (37-53) L 04/21/24 20:08 MCV 110.7 fl (82-101) H 04/21/24 20:08 MCH 34.8 pg (27-33) H 04/21/24 20:08 MCHC 31.4 g/dL (30-55) 04/21/24 20:08 RDW 14.9 % (12.1-15.1) 04/21/24 20:08 Plt Count 281 10^3/cmm (157-399) 04/21/24 20:08 MPV 8.8 fL (7.4-10.4) 04/21/24 20:08 Neut % (Auto) 35.1 % 04/21/24 20:08 Lymph % (Auto) 51.3 % 04/21/24 20:08 [place] % (Auto) 11.3 % 04/21/24 20:08 Eos % (Auto) 1.3 % 04/21/24 20:08 Baso % (Auto) 0.7 % 04/21/24 20:08 Neut # (Auto) 2.60 10^3/uL (1.8-7.7) 04/21/24 20:08 Lymph # (Auto) 3.8 10^3/uL (0.8-4.8) 04/21/24 20:08 [place] # (Auto) 0.8 10^3/uL (0.2-0.9) 04/21/24 20:08 Eos # (Auto) 0.1 10^3/uL (0.0-0.8) 04/21/24 20:08 Baso # (Auto) 0.1 10^3/uL (0.0-0.1) 04/21/24 20:08 Nucleated RBC % (auto) 0 % 04/21/24 20:08 Nucleated RBCs # 0.0 /100WBC 04/21/24 20:08 Sodium 136 mmol/L (136-145) 04/21/24 20:08 Potassium 4.4 mmol/L (3.5-5.1) 04/21/24 20:08 Chloride 104 mmol/L (98-107) 04/21/24 20:08 Carbon Dioxide 27 mmol/L (22-29) 04/21/24 20:08 Anion Gap 9.4 (5-19) 04/21/24 20:08 BUN 19 mg/dL (6-20) 04/21/24 20:08 Creatinine 0.7 mg/dL (0.7-1.2) 04/21/24 20:08 GFR Calculation 120.9 mL/min (90-130) 04/21/24 20:08 Glucose 106 mg/dL (65-115) 04/21/24 20:08 Calculated Osmolality 285 mOsm/kg (285-295) 04/21/24 20:08 Calcium 7.8 mg/dL (8.5-10.5) L 04/21/24 20:08 Total Bilirubin 0.3 mg/dL (0.15-1.2) 04/21/24 20:08 AST 32 U/L (0-40) 04/21/24 20:08 ALT 27 U/L (0-41) 04/21/24 20:08 Alkaline Phosphatase 94 U/L (40-130) 04/21/24 20:08 Total Protein 5.9 g/dL (6.6-8.7) L 04/21/24 20:08 Albumin 2.8 g/dL (3.5-5.2) L 04/21/24 20:08 Globulin 3.1 g/dL (1.3-4.6) 04/21/24 20:08 Lipase 55 U/L (13-60) 04/21/24 20:08 Urine Color Yellow (Yellow) 04/21/24 20:36 Urine Appearance Clear (CLEAR) 04/21/24 20:36 Urine pH 5.5 (5-7) 04/21/24 20:36 Ur Specific [place] 1.024 (1.005-1.030) 04/21/24 20:36 Urine Protein Trace (Negative) A 04/21/24 20:36 Urine Glucose (UA) Negative (Normal) 04/21/24 20:36 Urine Ketones Negative (Negative) 04/21/24 20:36 Urine Blood Negative (Negative) 04/21/24 20:36 Urine Nitrate Negative (Negative) 04/21/24 20:36 Urine Bilirubin Negative (Negative) 04/21/24 20:36 Urine Urobilinogen 1.0 mg/dL (Negative) 04/21/24 20:36 Ur Leukocyte Esterase Negative (Negative) 04/21/24 20:36 Urine RBC 0-2 /hpf (0-2) 04/21/24 20:36 Urine WBC 0-5 /hpf (0-5) 04/21/24 20:36 Ur Squamous Epith Cells 0-5 /hpf (0-5) 04/21/24 20:36 Amorphous Sediment Not Reportable 04/21/24 20:36 Urine Bacteria None seen /hpf (NONE) 04/21/24 20:36 Hyaline Casts 0.40 /lpf 04/21/24 20:36 No radiology studies performed this visit Discharge Plan Discharge Patient Disposition: Home Clinical Impression: Abdominal pain Qualifiers: Abdominal location: lower abdomen, unspecified Qualified Code(s): R10.30 - Lower abdominal pain, unspecified Condition: Stable Prescriptions: No Action tamsulosin 0.4 mg Capsule 0.4 mg PO DAILY 30 Days Qty: 30 1RF pantoprazole 40 mg Tablet,Delayed Release (Dr/Ec) 40 mg PO DAILY 30 Days Qty: 30 1RF gabapentin 300 mg Capsule 300 mg PO TID 30 Days Qty: 90 1RF quetiapine 200 mg tablet 200 mg PO BEDTIME paroxetine HCl 20 mg tablet 20 mg PO DAILY olanzapine 10 mg tablet,disintegrating 10 mg PO BEDTIME lurasidone 40 mg tablet 40 mg PO QPM naproxen [Naprosyn] 500 mg tablet 500 mg PO BID PRN (Reason: pain) Qty: 20 0RF olanzapine [Zyprexa] 10 mg tablet 10 mg PO QPM Qty: 30 0RF fluticasone propionate 50 mcg/actuation spray,suspension 2 spray INTRANASAL DAILY duloxetine 60 mg capsule,delayed release(DR/EC) 60 mg PO DAILY ondansetron 4 mg tablet,disintegrating 4 mg PO Q6H PRN (Reason: Nausea And Vomiting) Discharge Orders: Discharge ED (Routine); Ordered 04/21/24 Ordered By: Anthony Springer Discharge Diet: Usual diet Discharge Activity: Increase activity as tolerated Patient Instructions: Abdominal Pain (ED) Activity Restrictions/Additional Instructions: Follow-up with primary care for general reevaluation, redraw of labs. Drink plenty of fluids, continue taking medications as prescribed. Return with any new or worsening symptoms. Coding Level of Care Code ED [employer] for Camila Alvares
[2024-04-21] MEDS: LORazepam 1 mg Tablet PO (20:08)
[2024-04-21] MEDS: ketorolac 10 mg Tablet PO (20:08)
[2024-04-21 20:20] LABS: Basophils # 0.1 10^3/uL (0.0-0.1); Basophils % 0.7 %; Eosinophils # 0.1 10^3/uL (0.0-0.8); Eosinophils % 1.3 %; Hematocrit 35.3 % (37-53); Lymphocytes # 3.8 10^3/uL (0.8-4.8); Lymphocytes % 51.3 %; Mean Corpuscular HGB Conc 31.4 g/dL (30-55); Mean Corpuscular Hemoglobin 34.8 pg (27-33); Mean Corpuscular Volume 110.7 fl (82-101); Mean Platelet Volume 8.8 fL (7.4-10.4); Monocytes # 0.8 10^3/uL (0.2-0.9); Monocytes % 11.3 %; Neutrophils % 35.1 %; Nucleated Red Blood Cells % 0 %; Platelet Count 281 10^3/cmm (157-399); Red Blood Count 3.19 10^6/uL (3.85-5.65); Red Cell Distribution Width 14.9 % (12.1-15.1); White Blood Count 7.41 10^3/uL (3.29-11.43)
[2024-04-21 20:39] LABS: Alanine Aminotransferase 27 U/L (0-41); Albumin Level 2.8 g/dL (3.5-5.2); Alkaline Phosphatase 94 U/L (40-130); Anion Gap 9.4 (5-19); Aspartate Amino Transferase 32 U/L (0-40); Blood Urea Nitrogen 19 mg/dL (6-20); Calcium 7.8 mg/dL (8.5-10.5); Carbon Dioxide 27 mmol/L (22-29); Chloride 104 mmol/L (98-107); Creatinine Clr Calc Pharmacy 123.6044; Globulin 3.1 g/dL (1.3-4.6); Glomerular Filtration Rate 120.9 mL/min (90-130); Glucose 106 mg/dL (65-115); Lipase 55 U/L (13-60); Osmolality Calculated 285 mOsm/kg (285-295); Potassium 4.4 mmol/L (3.5-5.1); Sodium 136 mmol/L (136-145); Total Bilirubin 0.3 mg/dL (0.15-1.2); Total Protein 5.9 g/dL (6.6-8.7)
[2024-04-21 20:48] LABS: Bilirubin Urine Negative (Negative); Blood Urine Negative (Negative); Glucose Urine UA Negative (Normal); Ketones Urine Negative (Negative); Leukocyte Esterase Urine Negative (Negative); Nitrate Urine Negative (Negative); Protein Urine Trace (Negative); Specific Gravity, Urine 1.024 (1.005-1.030); Urine Appearance Clear (CLEAR); Urine Color Yellow (Yellow); pH Urine 5.5 (5-7)
[2024-04-21 20:50] LABS: Add Urine Microscopic? YES; Bacteria Urine None Seen /hpf; RBC Urine 0-2 /hpf (0-2); Squamous Epithelial Cell Urine 0-5 /hpf (0-5); WBC Urine 0-5 /hpf (0-5)
[2024-04-21 21:09] LABS: Slide Review Slide Review Perform
[2024-04-21] MEDS: ipratropium-albuterol 3 mL Neb INHALATION (21:32)
[2024-04-21 21:33] VITALS: PULSE 82; RESP 16; O2SAT 97
[2024-04-21 21:49] VITALS: BP 112/75; PULSE 82; RESP 16; O2SAT 88
== END 2024-04-21 21:58 | disposition home or self-care (01) ==
PROVIDERS: Emergency Provider Physician Assistant
DX: R10.30 Lower abdominal pain, unspecified (principal); Z72.0 Tobacco use
CPT/HCPCS: 36415; 80053; 81001; 83690; 85025; 94640; 99283

== ENCOUNTER 2024-04-21 19:16 | Emergency (ER) | payer MEDICAID, SELFPAY ==
[2023-12-27 15:20] VITALS: BP 128/98; BMI 17.0
[2024-04-21 19:30] LABS: Glucose Point of Care 86 mg/dL (70-110)
== END 2024-04-21 19:21 | disposition left against medical advice (07) ==
LOC: ER 19:18
PROVIDERS: Emergency Provider Family Medicine
DX: Z53.21 Procedure and treatment not carried out due to patient leaving prior to being seen by health care provider (principal)
CPT/HCPCS: 36416; 82962

== ENCOUNTER 2024-04-23 21:08 | Emergency (ER) | payer MEDICAID, SELFPAY ==
[2023-12-27 15:20] VITALS: BP 128/98; BMI 17.0
[2024-04-23] VITALS (9 sets, daily range): BP systolic 103–111; BP diastolic 71–77; PULSE 20–86; RESP 16–18; TEMP 36.8; O2SAT 90–99; BMI 25.8
--- NOTE | 2024-04-23 21:34 | W.ED.GIBLEED ---
HPI - GI Bleed General: Chief complaint: GI Bleed Stated complaint: Abd Pain Time Seen by Provider: 04/23/24 21:16 Source: patient Mode of arrival: other (Law Enforcement) Limitations: no limitations History of Present Illness: 48yo male presents with law enforcement from correction for evaluation of dark/tarry stool, hematuria, right upper quadrant abdominal pain, and anxiety. Patient reports that his symptoms started today. Patient states that he has only had 1 bowel movement that was dark and tarry. States he is anxious due to concern over his medical problems. Patient denies use of blood thinners, fever, vomiting, diarrhea. Patient has been seen in this ER 3 previous times so far this month: 04/08, 04/18, 04/21. Associated symptoms: Reports abdominal pain (RUQ); Denies chills, easy bruising, fever(s) or vomiting Related Data Home Medications Medication Instructions Recorded Confirmed fluticasone propionate 50 2 spray intranasal DAILY 06/09/23 11/22/23 mcg/actuation nasal spray,suspension lurasidone 40 mg tablet 40 mg PO QPM 09/22/23 11/22/23 olanzapine 10 mg disintegrating 10 mg PO BEDTIME 09/22/23 11/22/23 tablet paroxetine HCl 20 mg tablet 20 mg PO DAILY 09/22/23 11/22/23 quetiapine 200 mg tablet 200 mg PO BEDTIME 09/22/23 11/22/23 duloxetine 60 mg capsule,delayed 60 mg PO DAILY 11/22/23 11/22/23 release ondansetron 4 mg disintegrating 4 mg PO Q6H PRN Nausea And Vomiting 11/22/23 11/22/23 tablet Previous Rx's Medication Instructions Recorded gabapentin 300 mg capsule 300 mg PO TID 30 days #90 caps 04/04/23 pantoprazole 40 mg tablet,delayed 40 mg PO DAILY 30 days #30 tabs 04/04/23 release tamsulosin 0.4 mg capsule 0.4 mg PO DAILY 30 days #30 caps 04/04/23 naproxen 500 mg tablet (Naprosyn) 500 mg PO BID PRN pain #20 tabs 09/29/23 olanzapine 10 mg tablet (Zyprexa) 10 mg PO QPM #30 tabs 04/18/24 Allergies Allergy/AdvReac Type Severity Reaction Status Date / Time No Known Allergies Allergy Verified 04/08/24 20:45 Review of Systems Const: Denies: fever(s) or chills Card: Denies: chest pain Resp: Denies: dyspnea or non-productive cough GI: Reports: abdominal pain (RUQ) and melena; Denies: vomiting or hematemesis : Reports: hematuria; Denies: difficulty urinating or dysuria Musc: Denies: neck pain or back pain Psych: Reports: anxiety [place]/Lymph: Denies: easy bruising or easy bleeding PFSH ED PFSH: Medical History Psychiatric care Atrial flutter Atrial fibrillation Methamphetamine abuse -UDS positive for amphetamines/THC Bipolar 1 disorder, manic, mild Depressive disorder, not elsewhere classified Adjustment disorder with mixed disturbance of emotions and conduct Alcohol use disorder -Has known history of alcohol abuse&DT Surgical History H/O hernia repair History of appendectomy Family History Other Alcoholism /alcohol abuse Social History Quit status (tobacco/nicotine): has tried quititng Number of times tried to quit tobacco: 4 Second hand smoke exposure: Yes Alcohol intake: current Substance/Drug Use: current Current gender identity: Male Physical Exam Const: COMMON NORMALS: no acute distress, patient oriented x3 and alert GENERAL APPEARANCE: cooperative ORIENTATION/CONSCIOUSNESS: Yes awake OTHER: Patient is sitting upright on stretcher no acute distress. He is able to give history with no difficulty. He is interactive with exam appropriately. He is able to make position changes unassisted. Law enforcement is at bedside HENMT: COMMON NORMALS: normocephalic HEAD & SCALP: normocephalic Chest: CHEST: Yes Symmetrical chest wall rise Resp: COMMON NORMALS: normal respiratory effort and clear to auscultation bilaterally AUSCULTATION: clear to auscultation bilaterally Cardio: COMMON NORMALS: regular rate and regular rhythm RATE: regular rate RHYTHM: regular rhythm GI: COMMON NORMALS: Soft to palpation and non-tender PALPATION: Yes Soft to palpation OTHER: Indicated pain to RUQ, no ttp : COMMON NORMALS: No no CVA tenderness BLADDER/KIDNEY EXAM: No no CVA tenderness Back/Pelvis: COMMON NORMALS: negative for no CVA tenderness Neuro: COMMON NORMALS: patient oriented x3 SENSORIUM/ORIENTATION: Yes alert Psych: COMMON NORMALS: cooperative Course Vital Signs: Vital signs: Vital Signs Temperature 98.2 F 04/23/24 21:15 Pulse Rate 86 04/23/24 21:54 Respiratory Rate 18 04/23/24 21:54 Blood Pressure 107/71 04/23/24 21:54 Pulse Oximetry 97 04/23/24 21:15 Oxygen Delivery Me thod Room Air 04/23/24 21:54 MDM - GI Bleed Medical Decision Making 48yo male here with law enforcement from correction for evaluation of dark/tarry stool, hematuria, right upper quadrant abdominal discomfort, and anxiety. Patient has been seen in this ER 3 previous times this month with his last visit being 04/21 for lower abdominal pain and hematuria. Patient denies fever, chills, body aches, vomiting, difficulty breathing, shortness of breath, chest pain, any other concerns at this time. Patient is nontoxic in appearance. Vital signs are stable. No leukocytosis. Hemoglobin is noted to be 11.7, which is increased from his previous of 11.10 on 04/21/2024. No renal or hepatic abnormalities noted. Sodium noted to be very mildly decreased at 134, otherwise unremarkable. Discussed these findings with patient. Patient did receive hydroxyzine while in the emergency department to help with his anxiety. Patient was very concerned of possible gallbladder malfunction. Discussed with patient that we have no indicators of cholecystitis at this time. Advised patient to follow-up with primary care as soon as possible for further evaluation. Recommend he return to the emergency department if any rapid worsening symptoms, onset of fever associated with worsening, and as needed. Patient states understanding has no further questions or concerns at this time. Medical Records I reviewed the patient's medical records. Lab Data I reviewed the patient's lab results. 04/23/24 21:56 04/23/24 21:56 Laboratory Results WBC 7.49 10^3/uL (3.29-11.43) 04/23/24 21:56 RBC 3.42 10^6/uL (3.85-5.65) L 04/23/24 21:56 Hgb 11.70 g/dL (11.27-16.99) 04/23/24 21:56 Hct 37.3 % (37-53) 04/23/24 21:56 MCV 109.1 fl (82-101) H 04/23/24 21:56 MCH 34.2 pg (27-33) H 04/23/24 21:56 MCHC 31.4 g/dL (30-55) 04/23/24 21:56 RDW 14.6 % (12.1-15.1) 04/23/24 21:56 Plt Count 271 10^3/cmm (157-399) 04/23/24 21:56 MPV 8.6 fL (7.4-10.4) 04/23/24 21:56 Lymph % (Auto) Not Reportable 04/23/24 21:56 [place] % (Auto) Not Reportable 04/23/24 21:56 Lymph # (Auto) Not Reportable 04/23/24 21:56 [place] # (Auto) Not Reportable 04/23/24 21:56 Total Counted 100 (0-100) 04/23/24 21:56 Atypical Lymphs % 21.0 % (0-5) H 04/23/24 21:56 Segmented Neutrophils 32 % 04/23/24 21:56 Band Neutrophils Not Reportable 04/23/24 21:56 Absolute Lymphocytes 4.6 10^3/cmm (1.2-3.4) H 04/23/24 21:56 Lymphocytes (Manual) 41 % 04/23/24 21:56 Monocytes (Manual) 5.0 % 04/23/24 21:56 Absolute Monocytes 0.4 10^3/cmm (0.1-0.6) 04/23/24 21:56 Eosinophils (Manual) 1 % 04/23/24 21:56 Absolute Eosinophils 0.1 10^3/cmm (0.0-0.7) 04/23/24 21:56 Basophils (Manual) 0.0 % 04/23/24 21:56 Absolute Basophils 0.0 10^3/cmm (0.0-0.2) 04/23/24 21:56 Platelet Estimate Normal (Normal) 04/23/24 21:56 PT 13.20 SECONDS (12.1-14.9) 04/23/24 21:56 INR 0.98 (0.8-1.2) 04/23/24 21:56 APTT 37.3 SECONDS (23.9-36.7) H 04/23/24 21:56 Sodium 134 mmol/L (136-145) L 04/23/24 21:56 Potassium 4.4 mmol/L (3.5-5.1) 04/23/24 21:56 Chloride 101 mmol/L (98-107) 04/23/24 21:56 Carbon Dioxide 28 mmol/L (22-29) 04/23/24 21:56 Anion Gap 9.4 (5-19) 04/23/24 21:56 BUN 17 mg/dL (6-20) 04/23/24 21:56 Creatinine 0.7 mg/dL (0.7-1.2) 04/23/24 21:56 GFR Calculation 120.9 mL/min (90-130) 04/23/24 21:56 Glucose 95 mg/dL (65-115) 04/23/24 21:56 Calculated Osmolality 279 mOsm/kg (285-295) L 04/23/24 21:56 Calcium 7.8 mg/dL (8.5-10.5) L 04/23/24 21:56 Total Bilirubin 0.4 mg/dL (0.15-1.2) 04/23/24 21:56 AST 31 U/L (0-40) 04/23/24 21:56 ALT 31 U/L (0-41) 04/23/24 21:56 Alkaline Phosphatase 103 U/L (40-130) 04/23/24 21:56 Total Protein 6.2 g/dL (6.6-8.7) L 04/23/24 21:56 Albumin 3.1 g/dL (3.5-5.2) L 04/23/24 21:56 Globulin 3.1 g/dL (1.3-4.6) 04/23/24 21:56 Blood Type O Negative 04/23/24 21:56 Rho(D) Type Rh negative 04/23/24 21:56 No radiology studies performed this visit Discharge Plan Discharge Patient Disposition: Home Clinical Impression: Anxiety, Abdominal pain Condition: Stable Prescriptions: No Action tamsulosin 0.4 mg Capsule 0.4 mg PO DAILY 30 Days Qty: 30 1RF pantoprazole 40 mg Tablet,Delayed Release (Dr/Ec) 40 mg PO DAILY 30 Days Qty: 30 1RF gabapentin 300 mg Capsule 300 mg PO TID 30 Days Qty: 90 1RF quetiapine 200 mg tablet 200 mg PO BEDTIME paroxetine HCl 20 mg tablet 20 mg PO DAILY olanzapine 10 mg tablet,disintegrating 10 mg PO BEDTIME lurasidone 40 mg tablet 40 mg PO QPM naproxen [Naprosyn] 500 mg tablet 500 mg PO BID PRN (Reason: pain) Qty: 20 0RF olanzapine [Zyprexa] 10 mg tablet 10 mg PO QPM Qty: 30 0RF fluticasone propionate 50 mcg/actuation spray,suspension 2 spray INTRANASAL DAILY duloxetine 60 mg capsule,delayed release(DR/EC) 60 mg PO DAILY ondansetron 4 mg tablet,disintegrating 4 mg PO Q6H PRN (Reason: Nausea And Vomiting) Discharge Orders: Discharge ED (Routine); Ordered 04/23/24 Ordered By: Elvin Schwarz Discharge Diet: Usual diet Discharge Activity: Resume usual activity Patient Instructions: Abdominal Pain (ED), Pain Management Activity Restrictions/Additional Instructions: No acute abnormalities were noted on your labs today. Your labs today were actually better than your previous labs on 04/21 With the intermittent upper abdominal pain, you may need to have outpatient imaging Follow-up with your doctor as soon as possible for ER follow-up and for further evaluation Return to the emergency department as needed Coding Level of Care Code ED [employer] Service Supervisor for Camila Alvares
[2024-04-23] MEDS: hyDROXYzine 25 mg Capsule 50 MG PO (21:49)
[2024-04-23 22:13] LABS: Hematocrit 37.3 % (37-53); Mean Corpuscular HGB Conc 31.4 g/dL (30-55); Mean Corpuscular Hemoglobin 34.2 pg (27-33); Mean Corpuscular Volume 109.1 fl (82-101); Mean Platelet Volume 8.6 fL (7.4-10.4); Platelet Count 271 10^3/cmm (157-399); Red Blood Count 3.42 10^6/uL (3.85-5.65); Red Cell Distribution Width 14.6 % (12.1-15.1); White Blood Count 7.49 10^3/uL (3.29-11.43)
[2024-04-23 22:38] LABS: Alanine Aminotransferase 31 U/L (0-41); Albumin Level 3.1 g/dL (3.5-5.2); Alkaline Phosphatase 103 U/L (40-130); Anion Gap 9.4 (5-19); Aspartate Amino Transferase 31 U/L (0-40); Blood Urea Nitrogen 17 mg/dL (6-20); Calcium 7.8 mg/dL (8.5-10.5); Carbon Dioxide 28 mmol/L (22-29); Chloride 101 mmol/L (98-107); Creatinine Clr Calc Pharmacy 132.6438; Globulin 3.1 g/dL (1.3-4.6); Glomerular Filtration Rate 120.9 mL/min (90-130); Glucose 95 mg/dL (65-115); Osmolality Calculated 279 mOsm/kg (285-295); Potassium 4.4 mmol/L (3.5-5.1); Sodium 134 mmol/L (136-145); Total Bilirubin 0.4 mg/dL (0.15-1.2); Total Protein 6.2 g/dL (6.6-8.7)
[2024-04-23 22:44] LABS: INR 0.98 (0.8-1.2)
[2024-04-23 22:45] LABS: Partial Thromboplastin Time 37.3 SECONDS (23.9-36.7)
[2024-04-23 22:56] LABS: Slide Review Slide Review Perform
[2024-04-23 22:57] LABS: Absolute Eosinophils 0.1 10^3/cmm (0.0-0.7); Absolute Segmented Neutrophil 2.4 10/cmm (1.6-7.1); Band Neutrophils Absolute 2.8 10^3/cmm (0.0-1.2); Eosinophils 1 %; Monocytes Absolute 0.4 10^3/cmm (0.1-0.6); Segmented Neutrophils 32 %; Total Cells Counted 100 (0-100)
[2024-04-23 22:58] LABS: Lymphocytes 41 %; Lymphocytes Absolute 4.6 10^3/cmm (1.2-3.4)
[2024-04-23 23:00] LABS: Platelet Estimate Normal (Normal)
== END 2024-04-23 23:54 | disposition home or self-care (01) ==
PROVIDERS: Emergency Provider Nurse Practitioner
DX: F41.9 Anxiety disorder, unspecified (principal); R10.9 Unspecified abdominal pain
CPT/HCPCS: 36415; 80053; 85007; 85025; 85610; 85730; 86850; 86870; 86900; 99283

== ENCOUNTER 2024-06-04 07:06 | Emergency (ER) | payer MEDICAID, SELFPAY ==
[2023-12-27 15:20] VITALS: BP 128/98; BMI 17.0
[2024-06-04 07:08] VITALS: BP 134/79; PULSE 123; RESP 18; TEMP 37; O2SAT 96
--- NOTE | 2024-06-04 07:13 | PC.NURSE ---
PT PRESENTS WITH COMPLAINT OF NEED FOR MHE. PT STATES HE HAS BEEN HEARING VOICES. PT STATES THE VOICES TOLD HIM TO GET HELP. PT STATES HE IS UNDER THE INFLUENCE OF METHAMPHETAMINES AND MARIJUANA. PT IS NOT EXPERIENCING PSYCHIATRIC SYMPTOMS DURING ASSESSMENT. PT DENIES SI/HI.
--- NOTE | 2024-06-04 07:40 | ED.C_ITS ---
HPI - Psych General: Chief Complaint: Psychiatric Symptoms Stated Complaint: MHE Time Seen by Provider: 06/04/24 07:18 History of Present Illness: 48-year-old male presents to the emergen cy room with complaints of anxiety. Patient is also stating he is hearing voices however he states he has been hearing voices since he was 9 years old. It is worse when he uses methamphetamine. He admits to using methamphetamine this morning. He is afraid there is fentanyl in the methamphetamine. He does have a rash on his face which she states he gets whenever he does methamphetamine. Related Data Home Medications Medication Instructions Recorded Confirmed fluticasone propionate 50 2 spray intranasal DAILY 06/09/23 11/22/23 mcg/actuation nasal spray,suspension lurasidone 40 mg tablet 40 mg PO QPM 09/22/23 11/22/23 olanzapine 10 mg disintegrating 10 mg PO BEDTIME 09/22/23 11/22/23 tablet paroxetine HCl 20 mg tablet 20 mg PO DAILY 09/22/23 11/22/23 quetiapine 200 mg tablet 200 mg PO BEDTIME 09/22/23 11/22/23 duloxetine 60 mg capsule,delayed 60 mg PO DAILY 11/22/23 11/22/23 release ondansetron 4 mg disintegrating 4 mg PO Q6H PRN Nausea And Vomiting 11/22/23 11/22/23 tablet Previous Rx's Medication Instructions Recorded gabapentin 300 mg capsule 300 mg PO TID 30 days #90 caps 04/04/23 pantoprazole 40 mg tablet,delayed 40 mg PO DAILY 30 days #30 tabs 04/04/23 release tamsulosin 0.4 mg capsule 0.4 mg PO DAILY 30 days #30 caps 04/04/23 naproxen 500 mg tablet (Naprosyn) 500 mg PO BID PRN pain #20 tabs 09/29/23 olanzapine 10 mg tablet (Zyprexa) 10 mg PO QPM #30 tabs 04/18/24 buspirone 7.5 mg tablet 7.5 mg PO BID #60 tabs 06/04/24 hydroxyzine HCl 25 mg tablet 25 mg PO Q6H PRN anxiety #14 tabs 06/04/24 Allergies Allergy/AdvReac Type Severity Reaction Status Date / Time No Known Allergies Allergy Verified 04/08/24 20:45 Review of Systems Const: Denies: fever(s) or chills Card: Denies: chest pain Resp: Denies: dyspnea GI: Denies: abdominal pain : Denies: dysuria, urinary frequency or urinary urgency Musc: Denies: neck pain or back pain Skin/Breast: Denies: rash PFSH ED PFSH: Medical History Psychiatric care Atrial flutter Atrial fibrillation Methamphetamine abuse -UDS positive for amphetamines/THC Bipolar 1 disorder, manic, mild Depressive disorder, not elsewhere classified Adjustment disorder with mixed disturbance of emotions and conduct Alcohol use disorder -Has known history of alcohol abuse&DT Surgical History H/O hernia repair History of appendectomy Family History Other Alcoholism /alcohol abuse Social History Quit status (tobacco/nicotine): has tried quititng Number of times tried to quit tobacco: 4 Second hand smoke exposure: Yes Alcohol intake: current Substance/Drug Use: current Current gender identity: Male Physical Exam Const: COMMON NORMALS: no acute distress GENERAL APPEARANCE: cooperative and comfortable ORIENTATION/CONSCIOUSNESS: Yes awake, Yes oriented to person, Yes oriented to place and Yes oriented to time HENMT: COMMON NORMALS: normocephalic, atraumatic and hearing grossly normal bilaterally HEAD & SCALP: normocephalic and atraumatic Neuro: SENSORIUM/ORIENTATION: Yes oriented to person, Yes oriented to place and Yes oriented to time Skin: COMMON NORMALS: no rashes or lesions noted GENERAL SKIN EXAM: no rashes or lesions noted Course Vital Signs: Vital signs: Vital Signs Temperature 98.6 F 06/04/24 07:08 Pulse Rate 123 H 06/04/24 07:08 Respiratory Rate 18 06/04/24 07:08 Blood Pressure 134/79 06/04/24 07:08 Pulse Oximetry 96 06/04/24 07:08 Oxygen Delivery Me thod Room Air 06/04/24 07:08 MDM - Psych Medical Decision Making Patient awake and alert. Patient does not have any homicidal or suicidal ideation. He essentially feels like he used methamphetamine and had some chroni c contaminant to that he is concerned it was fentanyl he is awake and alert with no respiratory illness. He does admit to hearing voices but he says he always hears voices. He says they are not telling him to harm anyone or harm himself. He is admits they do get worse when he uses methamphetamine. He states he called 911 because he simply needs and transportation from where he was at. At this point no indication for admit to [facility]. Advised patient to avoid methamphetamine his response would indicate he has no plan to change his current use pattern. Will discharge him home encouraged him to evaluate Of note but achieved abstinence. Medical Records I reviewed the patient's medical records. No radiology studies performed this visit Discharge Plan Discharge Patient Disposition: Home Clinical Impression: Paranoia, Anxiety, Methamphetamine abuse Condition: Stable Prescriptions: New buspirone 7.5 mg tablet 7.5 mg PO BID Qty: 60 0RF hydroxyzine HCl 25 mg tablet 25 mg PO Q6H PRN (Reason: anxiety) Qty: 14 0RF No Action tamsulosin 0.4 mg Capsule 0.4 mg PO DAILY 30 Days Qty: 30 1RF pantoprazole 40 mg Tablet,Delayed Release (Dr/Ec) 40 mg PO DAILY 30 Days Qty: 30 1RF gabapentin 300 mg Capsule 300 mg PO TID 30 Days Qty: 90 1RF quetiapine 200 mg tablet 200 mg PO BEDTIME paroxetine HCl 20 mg tablet 20 mg PO DAILY olanzapine 10 mg tablet,disintegrating 10 mg PO BEDTIME lurasidone 40 mg tablet 40 mg PO QPM naproxen [Naprosyn] 500 mg tablet 500 mg PO BID PRN (Reason: pain) Qty: 20 0RF olanzapine [Zyprexa] 10 mg tablet 10 mg PO QPM Qty: 30 0RF fluticasone propionate 50 mcg/actuation spray,suspension 2 spray INTRANASAL DAILY duloxetine 60 mg capsule,delayed release(DR/EC) 60 mg PO DAILY ondansetron 4 mg tablet,disintegrating 4 mg PO Q6H PRN (Reason: Nausea And Vomiting) Discharge Orders: Discharge ED (Routine); Ordered 06/04/24 Ordered By: Cruzito Morocho Discharge Diet: Usual diet Discharge Activity: Resume usual activity Patient Instructions: Methamphetamine Use Disorder (ED), Opioid Safety, Pain Management Activity Restrictions/Additional Instructions: Thank you for choosing [facility] for your healthcare needs today. It is very important that you follow up as instructed or that you return to the Emergency Department should you have concerns or if your condition changes or worsens in any way. Coding Level of Care Code ED Industrial Management Teacher for Camila Alvares
[2024-06-04] MEDS: hyDROXYzine 25 mg Capsule 50 MG PO (07:49)
== END 2024-06-04 07:58 | disposition home or self-care (01) ==
PROVIDERS: Emergency Provider Family Medicine
DX: F22 Delusional disorders (principal); F41.9 Anxiety disorder, unspecified; F15.10 Other stimulant abuse, uncomplicated; Z72.0 Tobacco use
CPT/HCPCS: 99283

== ENCOUNTER 2024-06-06 00:41 | Emergency (ER) | payer MEDICAID, SELFPAY ==
[2023-12-27 15:20] VITALS: BP 128/98; BMI 17.0
[2024-06-06 00:42] VITALS: BP 122/80; PULSE 100; RESP 24; TEMP 36.7; O2SAT 98; BMI 21.5
--- NOTE | 2024-06-06 02:09 | ED_ITS ---
HPI - Anxiety General: Chief Complaint: Anxiety Stated Complaint: extreme anxiety Time Seen by Provider: 06/06/24 01:51 History of Present Illness: The patient presents to the emergency department with anxiety and difficulty sleeping. The patient admits to using methamphetamine earlier today, which is known to exacerbate anxiety. The patient was seen in the emergency department 2 days ago by another physician and was given medications at that time. The patient reports plans to attend a rehabilitation facility but has not provided a specific timeline for this. Relevant Information: The patient has a history of using Ativan for anxiety but acknowledges the potential risks of mixing it with methamphetamine. Related Data Home Medications Medication Instructions Recorded Confirmed fluticasone propionate 50 2 spray intranasal DAILY 06/09/23 11/22/23 mcg/actuation nasal spray,suspension lurasidone 40 mg tablet 40 mg PO QPM 09/22/23 11/22/23 olanzapine 10 mg disintegrating 10 mg PO BEDTIME 09/22/23 11/22/23 tablet paroxetine HCl 20 mg tablet 20 mg PO DAILY 09/22/23 11/22/23 quetiapine 200 mg tablet 200 mg PO BEDTIME 09/22/23 11/22/23 duloxetine 60 mg capsule,delayed 60 mg PO DAILY 11/22/23 11/22/23 release ondansetron 4 mg disintegrating 4 mg PO Q6H PRN Nausea And Vomiting 11/22/23 11/22/23 tablet Previous Rx's Medication Instructions Recorded gabapentin 300 mg capsule 300 mg PO TID 30 days #90 caps 04/04/23 pantoprazole 40 mg tablet,delayed 40 mg PO DAILY 30 days #30 tabs 04/04/23 release tamsulosin 0.4 mg capsule 0.4 mg PO DAILY 30 days #30 caps 04/04/23 naproxen 500 mg tablet (Naprosyn) 500 mg PO BID PRN pain #20 tabs 09/29/23 olanzapine 10 mg tablet (Zyprexa) 10 mg PO QPM #30 tabs 04/18/24 buspirone 7.5 mg tablet 7.5 mg PO BID #60 tabs 06/04/24 hydroxyzine HCl 25 mg tablet 25 mg PO Q6H PRN anxiety #14 tabs 06/04/24 Allergies Allergy/AdvReac Type Severity Reaction Status Date / Time No Known Allergies Allergy Verified 06/06/24 00:48 [facility] ED PFSH: Medical History Psychiatric care Atrial flutter Atrial fibrillation Methamphetamine abuse -UDS positive for amphetamines/THC Bipolar 1 disorder, manic, mild Depressive disorder, not elsewhere classified Adjustment disorder with mixed disturbance of emotions and conduct Alcohol use disorder -Has known history of alcohol abuse&DT Surgical History H/O hernia repair History of appendectomy Family History Other Alcoholism /alcohol abuse Social History Quit status (tobacco/nicotine): has tried quititng Number of times tried to quit tobacco: 4 Second hand smoke exposure: Yes Alcohol intake: current Substance/Drug Use: current Current gender identity: Male Physical Exam Const: COMMON NORMALS: no acute distress, patient oriented x3, healthy appearing, alert and well nourished HENMT: COMMON NORMALS: normocephalic HEAD & SCALP: normocephalic Eye: COMMON NORMALS: EOMs intact bilaterally Neck/C-Spine: COMMON NORMALS: full ROM and supple Resp: COMMON NORMALS: normal respiratory effort, No retractions and clear to auscultation bilaterally AUSCULTATION: clear to auscultation bilaterally Cardio: COMMON NORMALS: regular rate, regular rhythm, No gallops present (Cardio) and No murmurs present (Cardio) RATE: regular rate RHYTHM: regular rhythm GI: COMMON NORMALS: Soft to palpation and non-tender PALPATION: Yes Soft to palpation Extremity: GENERAL: Yes normal exam except as noted Neuro: COMMON NORMALS: patient oriented x3 SENSORIUM/ORIENTATION: Yes alert Skin: COMMON NORMALS: no rashes or lesions noted GENERAL SKIN EXAM: no rashes or lesions noted Course Vital Signs: Vital signs: Vital Signs Temperature 98.0 F 06/06/24 00:42 Pulse Rate 100 06/06/24 00:42 Respiratory Rate 24 H 06/06/24 00:42 Blood Pressure 122/80 06/06/24 00:42 Pulse Oximetry 98 06/06/24 00:42 Oxygen Delivery Me thod Room Air 06/06/24 00:42 MDM - Anxiety Medical Decision Making 1. Methamphetamine Use Disorder with Anxiety: - Patient presents with anxiety following recent methamphetamine use, reported as earlier today. - History of frequent Emergency Department (ED) visits, including one 2 days ago for similar complaints. - Anxiety likely exacerbated by methamphetamine use and its after-effects. - Patient expresses interest in rehabilitation but has not initiated the process. -Patient given hydroxyzine in the emergency department.. - Nurse to monitor the patient. - Discussed plans for rehabilitation; patient to follow up with [facility]. - Advised against mixing Ativan with methamphetamine due to opposing effects. - Patient education provided on the relationship between methamphetamine use and increased anxiety. 2. Insomnia: - Patient reports difficulty sleeping, likely secondary to methamphetamine use and anxiety. - Discuss sleep hygiene measures with the patient. 3. Chest Pain: - Patient has a history of recurrent chest pain, presenting to the ED once or twice a week. - No acute chest pain reported during this visit. - No specific plan discussed for chest pain during this encounter. No radiology studies performed this visit Discharge Plan Discharge Patient Disposition: Home Clinical Impression: Methamphetamine abuse, Acute anxiety Condition: Stable Prescriptions: No Action tamsulosin 0.4 mg Capsule 0.4 mg PO DAILY 30 Days Qty: 30 1RF pantoprazole 40 mg Tablet,Delayed Release (Dr/Ec) 40 mg PO DAILY 30 Days Qty: 30 1RF gabapentin 300 mg Capsule 300 mg PO TID 30 Days Qty: 90 1RF quetiapine 200 mg tablet 200 mg PO BEDTIME paroxetine HCl 20 mg tablet 20 mg PO DAILY olanzapine 10 mg tablet,disintegrating 10 mg PO BEDTIME lurasidone 40 mg tablet 40 mg PO QPM naproxen [Naprosyn] 500 mg tablet 500 mg PO BID PRN (Reason: pain) Qty: 20 0RF olanzapine [Zyprexa] 10 mg tablet 10 mg PO QPM Qty: 30 0RF fluticasone propionate 50 mcg/actuation spray,suspension 2 spray INTRANASAL DAILY duloxetine 60 mg capsule,delayed release(DR/EC) 60 mg PO DAILY ondansetron 4 mg tablet,disintegrating 4 mg PO Q6H PRN (Reason: Nausea And Vomiting) buspirone 7.5 mg tablet 7.5 mg PO BID Qty: 60 0RF hydroxyzine HCl 25 mg tablet 25 mg PO Q6H PRN (Reason: anxiety) Qty: 14 0RF Discharge Orders: Discharge ED (Routine); Ordered 06/06/24 Ordered By: Jose Juan Law Discharge Diet: Advance as tolerated Discharge Activity: Resume usual activity Patient Instructions: Opioid Safety, Pain Management Coding Level of Care Code ED Sorter Pricer for Camila Alvares
[2024-06-06] MEDS: hyDROXYzine 25 mg Capsule 50 MG PO (02:28)
== END 2024-06-06 02:35 | disposition home or self-care (01) ==
PROVIDERS: Emergency Provider General Practice
DX: F41.9 Anxiety disorder, unspecified (principal); F15.10 Other stimulant abuse, uncomplicated
CPT/HCPCS: 99283

== ENCOUNTER 2024-06-14 17:03 | Emergency (ER) | payer MEDICAID, SELFPAY ==
[2023-12-27 15:20] VITALS: BP 128/98; BMI 17.0
[2024-06-14 17:22] VITALS: BP 126/89; PULSE 115; RESP 18; TEMP 36.8; O2SAT 98
--- NOTE | 2024-06-14 17:41 | ED.C_ITS ---
HPI - Psych 2 General: Chief Complaint: Psychiatric Symptoms Stated Complaint: etoh Time Seen by Provider: 06/14/24 17:04 Source: patient and EMS Mode of arrival: EMS Limitations: no limitations History of Present Illness: 48-year-old male who is very well-known to the ER has a history alcoholism states that his kicked him out of the house today he states that he is cold his feet are cold and wet from being out in the snow. He has been drinking 2. Patient here is very argumentative angry hide states that he just wants to no specific plans. Related Data Home Medications Medication Instructions Recorded Confirmed fluticasone propionate 50 2 spray intranasal DAILY 06/09/23 11/22/23 mcg/actuation nasal spray,suspension lurasidone 40 mg tablet 40 mg PO QPM 09/22/23 11/22/23 olanzapine 10 mg disintegrating 10 mg PO BEDTIME 09/22/23 11/22/23 tablet paroxetine HCl 20 mg tablet 20 mg PO DAILY 09/22/23 11/22/23 quetiapine 200 mg tablet 200 mg PO BEDTIME 09/22/23 11/22/23 duloxetine 60 mg capsule,delayed 60 mg PO DAILY 11/22/23 11/22/23 release ondansetron 4 mg disintegrating 4 mg PO Q6H PRN Nausea And Vomiting 11/22/23 11/22/23 tablet Previous Rx's Medication Instructions Recorded gabapentin 300 mg capsule 300 mg PO TID 30 days #90 caps 04/04/23 pantoprazole 40 mg tablet,delayed 40 mg PO DAILY 30 days #30 tabs 04/04/23 release tamsulosin 0.4 mg capsule 0.4 mg PO DAILY 30 days #30 caps 04/04/23 naproxen 500 mg tablet (Naprosyn) 500 mg PO BID PRN pain #20 tabs 09/29/23 olanzapine 10 mg tablet (Zyprexa) 10 mg PO QPM #30 tabs 04/18/24 buspirone 7.5 mg tablet 7.5 mg PO BID #60 tabs 06/04/24 hydroxyzine HCl 25 mg tablet 25 mg PO Q6H PRN anxiety #14 tabs 06/04/24 Allergies Allergy/AdvReac Type Severity Reaction Status Date / Time No Known Allergies Allergy Verified 06/06/24 00:48 Review of Systems 2 Const: Denies: fever(s), chills, body aches or change in appetite ENMT: Denies: throat pain or dental pain Card: Denies: chest pain Resp: Denies: dyspnea GI: Denies: abdominal pain, nausea, vomiting or diarrhea Musc: Denies: neck pain or back pain Skin/Breast: Denies: rash Neuro: Denies: headache(s) PFSH ED 2 PFSH: Medical History Psychiatric care Atrial flutter Atrial fibrillation Methamphetamine abuse -UDS positive for amphetamines/THC Bipolar 1 disorder, manic, mild Depressive disorder, not elsewhere classified Adjustment disorder with mixed disturbance of emotions and conduct Alcohol use disorder -Has known history of alcohol abuse&DT Surgical History H/O hernia repair History of appendectomy Family History Other Alcoholism /alcohol abuse Social History Quit status (tobacco/nicotine): has tried quititng Number of times tried to quit tobacco: 4 Second hand smoke exposure: Yes Alcohol intake: current Substance/Drug Use: current Current gender identity: Male Physical Exam 2 Const: COMMON NORMALS: patient oriented x3 OTHER: intoxicated HENMT: COMMON NORMALS: normocephalic and atraumatic HEAD & SCALP: n ormocephalic and atraumatic Eye: COMMON NORMALS: conjunctivae normal CONJUNCTIVA: Yes conjunctivae normal Neck/C-Spine: COMMON NORMALS: full ROM and supple Chest: COMMONS NORMALS: normal inspection of the chest and normal palpation of entire chest wall Resp: COMMON NORMALS: normal respiratory effort, No retractions, No use of accessory muscles and clear to auscultation bilaterally AUSCULTATION: clear to auscultation bilaterally Cardio: COMMON NORMALS: regular rate, regular rhythm and No murmurs present (Cardio) RATE: regular rate RHYTHM: regular rhythm Extremity: COMMON NORMALS: normal to inspection and full ROM Neuro: COMMON NORMALS: patient oriented x3, moves all extremities and no focal motor deficits Psych: COMMON NORMALS: mental status grossly normal, Normal thought process present and cooperative THOUGHT PROCESS: Normal thought process present Skin: COMMON NORMALS: no rashes or lesions noted and no wounds GENERAL SKIN EXAM: no rashes or lesions noted Course 2 Vital Signs: Vital signs: Vital Signs Temperature 98.3 F 06/14/24 17:22 Pulse Rate 115 H 06/14/24 17:22 Respiratory Rate 18 06/14/24 17:22 Blood Pressure 126/89 06/14/24 17:22 Pulse Oximetry 98 06/14/24 17:22 MDM - Psych Medical Decision Making Patient presents here with alcohol intoxication originally had some suicidal threats he is not actively suicidal at this time he has done this multiple times in the past I spoke to psychiatrist Dr. Em who knows patient well and agrees he is stable for discharge he is now awake and alert and stable for discharge Medical Records I reviewed the patient's medical records. Lab Data I reviewed the patient's lab results. 06/14/24 18:11 06/14/24 18:11 Laboratory Results WBC 6.18 10^3/uL (3.29-11.43) 06/14/24 18:11 RBC 3.88 10^6/uL (3.85-5.65) 06/14/24 18:11 Hgb 13.90 g/dL (11.27-16.99) 06/14/24 18:11 Hct 41.9 % (37-53) 06/14/24 18:11 MCV 108.0 fl (82-101) H 06/14/24 18:11 MCH 35.8 pg (27-33) H 06/14/24 18:11 MCHC 33.2 g/dL (30-55) 06/14/24 18:11 RDW 13.7 % (12.1-15.1) 06/14/24 18:11 Plt Count 335 10^3/cmm (157-399) 06/14/24 18:11 MPV 8.3 fL (7.4-10.4) 06/14/24 18:11 Neut % (Auto) 43.8 % 06/14/24 18:11 Lymph % (Auto) 41.3 % 06/14/24 18:11 [place] % (Auto) 12.5 % 06/14/24 18:11 Eos % (Auto) 1.6 % 06/14/24 18:11 Baso % (Auto) 0.6 % 06/14/24 18:11 Neut # (Auto) 2.71 10^3/uL (1.8-7.7) 06/14/24 18:11 Lymph # (Auto) 2.6 10^3/uL (0.8-4.8) 06/14/24 18:11 [place] # (Auto) 0.8 10^3/uL (0.2-0.9) 06/14/24 18:11 Eos # (Auto) 0.1 10^3/uL (0.0-0.8) 06/14/24 18:11 Baso # (Auto) 0.0 10^3/uL (0.0-0.1) 06/14/24 18:11 Nucleated RBC % (auto) 0 % 06/14/24 18:11 Nucleated RBCs # 0.0 /100WBC 06/14/24 18:11 Sodium 139 mmol/L (136-145) 06/14/24 18:11 Potassium 3.5 mmol/L (3.5-5.1) 06/14/24 18:11 Chloride 100 mmol/L (98-107) 06/14/24 18:11 Carbon Dioxide 26 mmol/L (22-29) 06/14/24 18:11 Anion Gap 16.5 (5-19) 06/14/24 18:11 BUN 10 mg/dL (6-20) 06/14/24 18:11 Creatinine 0.6 mg/dL (0.7-1.2) L 06/14/24 18:11 GFR Calculation 144.4 mL/min (90-130) H 06/14/24 18:11 Glucose 77 mg/dL (65-115) 06/14/24 18:11 Calculated Osmolality 286 mOsm/kg (285-295) 06/14/24 18:11 Calcium 8.5 mg/dL (8.5-10.5) 06/14/24 18:11 Total Bilirubin 0.3 mg/dL (0.15-1.2) 06/14/24 18:11 AST 22 U/L (0-40) 06/14/24 18:11 ALT 18 U/L (0-41) 06/14/24 18:11 Alkaline Phosphatase 90 U/L (40-130) 06/14/24 18:11 Total Protein 7.4 g/dL (6.6-8.7) 06/14/24 18:11 Albumin 4.0 g/dL (3.5-5.2) 06/14/24 18:11 Globulin 3.4 g/dL (1.3-4.6) 06/14/24 18:11 Urine Opiates Screen Negative ng/mL (Negative) 06/14/24 17:35 Ur Barbiturates Screen Negative ng/mL (Negative) 06/14/24 17:35 Ur Phencyclidine Scrn Negative ng/mL (Negative) 06/14/24 17:35 Ur Amphetamines Screen Negative ng/mL (Negative) 06/14/24 17:35 U Benzodiazepines Scrn Negative ng/mL (Negative) 06/14/24 17:35 Urine Cocaine Screen Negative ng/mL (Negative) 06/14/24 17:35 U Marijuana (THC) Screen Negative ng/mL (Negative) 06/14/24 17:35 Ethyl Alcohol 188 mg/dL (0-10) H 06/14/24 18:11 No radiology studies performed this visit Discharge Plan Discharge Patient Disposition: Home Clinical Impression: Alcohol intoxication Condition: Stable Prescriptions: No Action tamsulosin 0.4 mg Capsule 0.4 mg PO DAILY 30 Days Qty: 30 1RF pantoprazole 40 mg Tablet,Delayed Release (Dr/Ec) 40 mg PO DAILY 30 Days Qty: 30 1RF gabapentin 300 mg Capsule 300 mg PO TID 30 Days Qty: 90 1RF quetiapine 200 mg tablet 200 mg PO BEDTIME paroxetine HCl 20 mg tablet 20 mg PO DAILY olanzapine 10 mg tablet,disintegrating 10 mg PO BEDTIME lurasidone 40 mg tablet 40 mg PO QPM naproxen [Naprosyn] 500 mg tablet 500 mg PO BID PRN (Reason: pain) Qty: 20 0RF olanzapine [Zyprexa] 10 mg tablet 10 mg PO QPM Qty: 30 0RF fluticasone propionate 50 mcg/actuation spray,suspension 2 spray INTRANASAL DAILY duloxetine 60 mg capsule,delayed release(DR/EC) 60 mg PO DAILY ondansetron 4 mg tablet,disintegrating 4 mg PO Q6H PRN (Reason: Nausea And Vomiting) buspirone 7.5 mg tablet 7.5 mg PO BID Qty: 60 0RF hydroxyzine HCl 25 mg tablet 25 mg PO Q6H PRN (Reason: anxiety) Qty: 14 0RF Discharge Orders: Discharge ED (Routine); Ordered 06/14/24 Ordered By: Fransisco Berry Discharge Diet: Advance as tolerated Discharge Activity: Resume usual activity Patient Instructions: Alcohol Intoxication (ED) Coding Level of Care Code ED Dressing Machine Operator for Camila Alvares
[2024-06-14 18:31] LABS: Basophils % 0.6 %; Eosinophils # 0.1 10^3/uL (0.0-0.8); Eosinophils % 1.6 %; Hematocrit 41.9 % (37-53); Lymphocytes # 2.6 10^3/uL (0.8-4.8); Lymphocytes % 41.3 %; Mean Corpuscular HGB Conc 33.2 g/dL (30-55); Mean Corpuscular Hemoglobin 35.8 pg (27-33); Mean Platelet Volume 8.3 fL (7.4-10.4); Monocytes # 0.8 10^3/uL (0.2-0.9); Monocytes % 12.5 %; Neutrophils # 2.71 10^3/uL (1.8-7.7); Neutrophils % 43.8 %; Nucleated Red Blood Cells % 0 %; Platelet Count 335 10^3/cmm (157-399); Red Blood Count 3.88 10^6/uL (3.85-5.65); Red Cell Distribution Width 13.7 % (12.1-15.1); White Blood Count 6.18 10^3/uL (3.29-11.43)
[2024-06-14 18:50] LABS: Alanine Aminotransferase 18 U/L (0-41); Alcohol Level 188 mg/dL (0-10); Alkaline Phosphatase 90 U/L (40-130); Anion Gap 16.5 (5-19); Aspartate Amino Transferase 22 U/L (0-40); Blood Urea Nitrogen 10 mg/dL (6-20); Calcium 8.5 mg/dL (8.5-10.5); Carbon Dioxide 26 mmol/L (22-29); Chloride 100 mmol/L (98-107); Globulin 3.4 g/dL (1.3-4.6); Glomerular Filtration Rate 144.4 mL/min (90-130); Glucose 77 mg/dL (65-115); Osmolality Calculated 286 mOsm/kg (285-295); Potassium 3.5 mmol/L (3.5-5.1); Sodium 139 mmol/L (136-145); Total Bilirubin 0.3 mg/dL (0.15-1.2); Total Protein 7.4 g/dL (6.6-8.7)
[2024-06-14 19:01] LABS: Amphetamines Screen Urine Negative (Negative); Barbiturates Screen Urine Negative (Negative); Benzodiazepines Screen Urine Negative (Negative); Cocaine Screen Urine Negative (Negative); Opiate Screen Urine Negative (Negative); PCP Screen Urine Negative (Negative); THC Screen Urine Negative (Negative)
== END 2024-06-14 20:45 | disposition home or self-care (01) ==
PROVIDERS: Emergency Provider Emergency Medicine
DX: F10.129 Alcohol abuse with intoxication, unspecified (principal); Y90.6 Blood alcohol level of 120-199 mg/100 ml; Z72.0 Tobacco use
CPT/HCPCS: 36415; 80053; 80306; 80307; 85025; 99283

== ENCOUNTER 2024-06-17 14:36 | Emergency (ER) | payer MEDICAID, SELFPAY ==
[2023-12-27 15:20] VITALS: BP 128/98; BMI 17.0
[2024-06-17 14:38] VITALS: PULSE 104; RESP 20; O2SAT 100; BMI 24.3
--- NOTE | 2024-06-17 15:05 | ED.C_ITS ---
HPI - Psych General: Chief Complaint: Psychiatric Symptoms Stated Complaint: 96 Time Seen by Provider: 06/17/24 14:39 Source: EMS Mode of arrival: EMS History of Present Illness: 48-year-old male with history of alcohol ism he is very well-known to the ER patient was sent here from [facility] he had stated to them that he had had a suicidal thought but denied being suicidal currently. That sent him here on a 96-hour hold patient here denies being SI he states that he just wants to find his . He does admit to drinking Related Data Home Medications Medication Instructions Recorded Confirmed fluticasone propionate 50 2 spray intranasal DAILY 06/09/23 11/22/23 mcg/actuation nasal spray,suspension lurasidone 40 mg tablet 40 mg PO QPM 09/22/23 11/22/23 olanzapine 10 mg disintegrating 10 mg PO BEDTIME 09/22/23 11/22/23 tablet paroxetine HCl 20 mg tablet 20 mg PO DAILY 09/22/23 11/22/23 quetiapine 200 mg tablet 200 mg PO BEDTIME 09/22/23 11/22/23 duloxetine 60 mg capsule,delayed 60 mg PO DAILY 11/22/23 11/22/23 release ondansetron 4 mg disintegrating 4 mg PO Q6H PRN Nausea And Vomiting 11/22/23 11/22/23 tablet Previous Rx's Medication Instructions Recorded gabapentin 300 mg capsule 300 mg PO TID 30 days #90 caps 04/04/23 pantoprazole 40 mg tablet,delayed 40 mg PO DAILY 30 days #30 tabs 04/04/23 release tamsulosin 0.4 mg capsule 0.4 mg PO DAILY 30 days #30 caps 04/04/23 naproxen 500 mg tablet (Naprosyn) 500 mg PO BID PRN pain #20 tabs 09/29/23 olanzapine 10 mg tablet (Zyprexa) 10 mg PO QPM #30 tabs 04/18/24 buspirone 7.5 mg tablet 7.5 mg PO BID #60 tabs 06/04/24 hydroxyzine HCl 25 mg tablet 25 mg PO Q6H PRN anxiety #14 tabs 06/04/24 Allergies Allergy/AdvReac Type Severity Reaction Status Date / Time No Known Allergies Allergy Verified 06/06/24 00:48 Review of Systems Const: Denies: fever(s), chills, body aches or change in appetite ENMT: Denies: throat pain or dental pain Card: Denies: chest pain Resp: Denies: dyspnea GI: Denies: abdominal pain, nausea, vomiting or diarrhea Musc: Denies: neck pain or back pain Skin/Breast: Denies: rash Neuro: Denies: headache(s) PFSH ED PFSH: Medical History Psychiatric care Atrial flutter Atrial fibrillation Methamphetamine abuse -UDS positive for amphetamines/THC Bipolar 1 disorder, manic, mild Depressive disorder, not elsewhere classified Adjustment disorder with mixed disturbance of emotions and conduct Alcohol use disorder -Has known history of alcohol abuse&DT Surgical History H/O hernia repair History of appendectomy Family History Other Alcoholism /alcohol abuse Social History Quit status (tobacco/nicotine): has tried quititng Number of times tried to quit tobacco: 4 Second hand smoke exposure: Yes Alcohol intake: current Substance/Drug Use: current Current gender identity: Male Physical Exam Const: COMMON NORMALS: patient oriented x3 HENMT: COMMON NORMALS: normocephalic and atraumatic HEAD & SCALP: normocephalic and atraumatic Eye: COMMON NORMALS: conjunctivae normal CONJUNCTIVA: Yes conjunctivae normal Neck/C-Spine: COMMON NORMALS: full ROM and supple Chest: COMMONS NORMALS: normal inspection of the chest Resp: COMMON NORMALS: normal respiratory effort, No retractions, No use of accessory muscles and clear to auscultation bilaterally AUSCULTATION: clear to auscultation bilaterally Cardio: COMMON NORMALS: regular rate, regular rhythm and No murmurs present (Cardio) RATE: regular rate RHYTHM: regular rhythm GI: COMMON NORMALS: Normal to inspection, nondistended, normoactive bowel sounds present, Soft to palpation, non-tender and no masses PALPATION: Yes Soft to palpation Extremity: COMMON NORMALS: normal to inspection and full ROM Neuro: COMMON NORMALS: patient oriented x3, moves all extremities and no focal motor deficits Psych: COMMON NORMALS: mental status grossly normal, Normal thought process present and cooperative THOUGHT PROCESS: Normal thought process present Skin: COMMON NORMALS: no rashes or lesions noted and no wounds GENERAL SKIN EXAM: no rashes or lesions noted Course Vital Signs: Vital signs: Vital Signs Pulse Rate 104 H 06/17/24 14:38 Respiratory Rate 20 H 06/17/24 14:38 Pulse Oximetry 100 06/17/24 14:38 Oxygen Delivery Me thod Room Air 06/17/24 14:38 MDM - Psych Medical Decision Making Patient presents with alcohol intoxication he denies being SI to me. I know patient well seen many times for the same he was evaluated by psychiatrist Dr. Em who agrees he is not imminent threat to himself and we will resend his 96-hour hold and discharge him at this time Medical Records I reviewed the patient's medical records. No radiology studies performed this visit Discharge Plan Discharge Patient Disposition: Home Clinical Impression: Suicidal ideation, Alcohol abuse Condition: Stable Prescriptions: No Action tamsulosin 0.4 mg Capsule 0.4 mg PO DAILY 30 Days Qty: 30 1RF pantoprazole 40 mg Tablet,Delayed Release (Dr/Ec) 40 mg PO DAILY 30 Days Qty: 30 1RF gabapentin 300 mg Capsule 300 mg PO TID 30 Days Qty: 90 1RF quetiapine 200 mg tablet 200 mg PO BEDTIME paroxetine HCl 20 mg tablet 20 mg PO DAILY olanzapine 10 mg tablet,disintegrating 10 mg PO BEDTIME lurasidone 40 mg tablet 40 mg PO QPM naproxen [Naprosyn] 500 mg tablet 500 mg PO BID PRN (Reason: pain) Qty: 20 0RF olanzapine [Zyprexa] 10 mg tablet 10 mg PO QPM Qty: 30 0RF fluticasone propionate 50 mcg/actuation spray,suspension 2 spray INTRANASAL DAILY duloxetine 60 mg capsule,delayed release(DR/EC) 60 mg PO DAILY ondansetron 4 mg tablet,disintegrating 4 mg PO Q6H PRN (Reason: Nausea And Vomiting) buspirone 7.5 mg tablet 7.5 mg PO BID Qty: 60 0RF hydroxyzine HCl 25 mg tablet 25 mg PO Q6H PRN (Reason: anxiety) Qty: 14 0RF Discharge Orders: Discharge ED (Routine); Ordered 06/17/24 Ordered By: Fransisco Berry Discharge Diet: Advance as tolerated Discharge Activity: Resume usual activity Patient Instructions: Abuse of Alcohol (ED) Coding Level of Care Code ED Blender Laborer for Camila Alvares
--- NOTE | 2024-06-17 15:11 | W.PM.PSYCONS ---
Psych Consult HPI History of Present Illness Ludin Gordon is a 48 year old male Meds Home Medications and Allergies Home Medications Medication Instructions Recorded Confirmed Last Taken Type gabapentin 300 mg capsule 300 mg PO TID 30 days #90 caps 04/04/23 11/22/23 Unknown Rx pantoprazole 40 mg tablet,delayed 40 mg PO DAILY 30 days #30 tabs 04/04/23 11/22/23 09/21/23 Rx release tamsulosin 0.4 mg capsule 0.4 mg PO DAILY 30 days #30 caps 04/04/23 11/22/23 09/21/23 Rx fluticasone propionate 50 2 spray intranasal DAILY 06/09/23 11/22/23 09/21/23 History mcg/actuation nasal spray,suspension lurasidone 40 mg tablet 40 mg PO QPM 09/22/23 11/22/23 09/21/23 History olanzapine 10 mg disintegrating 10 mg PO BEDTIME 09/22/23 11/22/23 09/21/23 History tablet paroxetine HCl 20 mg tablet 20 mg PO DAILY 09/22/23 11/22/23 09/21/23 History quetiapine 200 mg tablet 200 mg PO BEDTIME 09/22/23 11/22/23 09/21/23 History naproxen 500 mg tablet (Naprosyn) 500 mg PO BID PRN pain #20 tabs 09/29/23 11/22/23 Unknown Rx duloxetine 60 mg capsule,delayed 60 mg PO DAILY 11/22/23 11/22/23 Unknown History release ondansetron 4 mg disintegrating 4 mg PO Q6H PRN Nausea And Vomiting 11/22/23 11/22/23 Unknown History tablet olanzapine 10 mg tablet (Zyprexa) 10 mg PO QPM #30 tabs 04/18/24 Unknown Rx buspirone 7.5 mg tablet 7.5 mg PO BID #60 tabs 06/04/24 Unknown Rx hydroxyzine HCl 25 mg tablet 25 mg PO Q6H PRN anxiety #14 tabs 06/04/24 Unknown Rx Allergies Allergy/AdvReac Type Severity Reaction Status Date / Time No Known Allergies Allergy Verified 06/06/24 00:48 PFSH NPU PFSH: Medical History Psychiatric care Atrial flutter Atrial fibrillation Methamphetamine abuse -UDS positive for amphetamines/THC Bipolar 1 disorder, manic, mild Depressive disorder, not elsewhere classified Adjustment disorder with mixed disturbance of emotions and conduct Alcohol use disorder -Has known history of alcohol abuse&DT Surgical History H/O hernia repair History of appendectomy Family History Other Alcoholism /alcohol abuse Social History Quit status (tobacco/nicotine): has tried quititng Number of times tried to quit tobacco: 4 Second hand smoke exposure: Yes Alcohol intake: current Substance/Drug Use: current Current gender identity: Male Vitals/I&O/Wt Last Vital Signs Pulse 104 H 06/17/24 14:38 Resp 20 H 06/17/24 14:38 Pulse Ox 100 06/17/24 14:38 O2 Del Method Room Air 06/17/24 14:38 Weight last 48 hrs Weight 72.575 kg A&P Assessment and plan (1) Depressive disorder: (2) Alcohol dependence: (3) Anxiety disorder, unspecified: Plan 47-year-old male with alcohol dependence , methamphetamine abuse and unspecified mood disorder with active use and clear intoxication presents denying SI or lethal intent speaking as he usually does in this condition. He continues to return and not follow through with follow up or mental health treatment. ?1.? Recommend sober living treatment at the highest level of care to which the patient is willing to commit. ?2. He continues to be resistant to treatment and leaves as soon as he is sober. 3. Agree with discharge given his lack of follow through or reasonable engagement in treatment. Involuntary Hold Information 96 Hour Hold: 96 Hour Involuntary Admission: Yes Attestations NPU Medical Necessity Statement*: N/A. Please see primary provider note for medical necessity. Coding Level of Care Code Acute Code for g Fwd Diagnoses Depressive disorder F32.A Alcohol dependence F10.20 Anxiety disorder, unspecified F41.9
== END 2024-06-17 15:24 | disposition home or self-care (01) ==
PROVIDERS: Emergency Provider Emergency Medicine
DX: R45.851 Suicidal ideations (principal); F10.10 Alcohol abuse, uncomplicated; Z72.0 Tobacco use
CPT/HCPCS: 99283

== ENCOUNTER 2024-06-21 20:54 | Emergency (ER) | payer MEDICAID, SELFPAY ==
[2023-12-27 15:20] VITALS: BP 128/98; BMI 17.0
[2024-06-21 20:58] VITALS: BP 134/66; PULSE 131; RESP 18; TEMP 36.8; O2SAT 97; BMI 21.7
[2024-06-22] VITALS (24 sets, daily range): BP systolic 101–136; BP diastolic 66–83; PULSE 80–110; RESP 16; O2SAT 92–100
--- NOTE | 2024-06-22 00:50 | XRR_ITS ---
PROCEDURE INFORMATION: Exam: XR Chest Exam date and time: 06/22/2024 1:40 AM Age: 48 years old Clinical indication: Pain; Chest pressure; Additional info: Cough, rib pain TECHNIQUE: Imaging protocol: Radiologic exam of the chest. Views: 2 views. COMPARISON: CR XR chest 1V portable [id number] 04/08/2024 10:09 PM FINDINGS: Lungs: Unremarkable. No consolidation. Pleural spaces: Unremarkable. No pleural effusion. No pneumothorax. Heart/Mediastinum: Unremarkable. No cardiomegaly. Bones/joints: Age-indeterminate severe compression fracture involving L1. XR/XR chest 2V* [id number] IMPRESSION: No acute pulmonary disease.
[2024-06-22] MEDS: ketorolac 30 mg/mL INJ IM (01:06)
[2024-06-22 01:59] LABS: Covid PCR NEGATIVE (Negative); Influenza A NEGATIVE (Negative); Influenza B NEGATIVE (Negative); Respiratory Syncytial Virus Ce NEGATIVE (Negative)
--- NOTE | 2024-06-22 04:25 | W.ED.URI ---
HPI - URI/Sore Throat General: Chief Complaint: Upper Respiratory Infection Stated Complaint: Rib Pain Time Seen by Provider: 06/22/24 00:03 Source: patient Mode of arrival: ambulatory Limitations: no limitations History of Present Illness: Cough and left chest wall pain. Left lower chest wall mainly over the floating ribs. Unsure if he fell as he says he often gets intoxicated and blacks out. But he also has been coughing really hard and it hurts when he coughs. Related Data Home Medications Medication Instructions Recorded Confirmed fluticasone propionate 50 2 spray intranasal DAILY 06/09/23 11/22/23 mcg/actuation nasal spray,suspension lurasidone 40 mg tablet 40 mg PO QPM 09/22/23 11/22/23 olanzapine 10 mg disintegrating 10 mg PO BEDTIME 09/22/23 11/22/23 tablet paroxetine HCl 20 mg tablet 20 mg PO DAILY 09/22/23 11/22/23 quetiapine 200 mg tablet 200 mg PO BEDTIME 09/22/23 11/22/23 duloxetine 60 mg capsule,delayed 60 mg PO DAILY 11/22/23 11/22/23 release ondansetron 4 mg disintegrating 4 mg PO Q6H PRN Nausea And Vomiting 11/22/23 11/22/23 tablet Previous Rx's Medication Instructions Recorded gabapentin 300 mg capsule 300 mg PO TID 30 days #90 caps 04/04/23 pantoprazole 40 mg tablet,delayed 40 mg PO DAILY 30 days #30 tabs 04/04/23 release tamsulosin 0.4 mg capsule 0.4 mg PO DAILY 30 days #30 caps 04/04/23 naproxen 500 mg tablet (Naprosyn) 500 mg PO BID PRN pain #20 tabs 09/29/23 olanzapine 10 mg tablet (Zyprexa) 10 mg PO QPM #30 tabs 04/18/24 buspirone 7.5 mg tablet 7.5 mg PO BID #60 tabs 06/04/24 hydroxyzine HCl 25 mg tablet 25 mg PO Q6H PRN anxiety #14 tabs 06/04/24 azithromycin 250 mg tablet See Rx Instructions PO .COMPLEX #6 06/22/24 tabs methocarbamol 750 mg tablet 750 mg PO TID PRN chest wall pain 06/22/24 #30 tabs Allergies Allergy/AdvReac Type Severity Reaction Status Date / Time No Known Allergies Allergy Verified 06/21/24 21:02 Review of Systems General: Reports: 10 or more systems reviewed and unremarkable except in HPI and below PFSH ED PFSH: Medical History Psychiatric care Atrial flutter Atrial fibrillation Methamphetamine abuse -UDS positive for amphetamines/THC Bipolar 1 disorder, manic, mild Depressive disorder, not elsewhere classified Adjustment disorder with mixed disturbance of emotions and conduct Alcohol use disorder -Has known history of alcohol abuse&DT Surgical History H/O hernia repair History of appendectomy Family History (Reviewed 06/22/24 @ 04: by Anselmo Sandoval MD) Other Alcoholism /alcohol abuse Social History (Reviewed 06/22/24 @ 04: by Anselmo Sandoval MD) Quit status (tobacco/nicotine): has tried quititng Number of times tried to quit tobacco: 4 Second hand smoke exposure: Yes Alcohol intake: current Substance/Drug Use: current Current gender identity: Male Physical Exam Const: COMMON NORMALS: no acute distress, average body habitus, patient oriented x3, healthy appearing, alert and well nourished GENERAL APPEARANCE: well kempt and well developed HENMT: COMMON NORMALS: normocephalic, atraumatic, external ears normal and moist oral mucous membranes HEAD & SCALP: normocephalic and atraumatic EXTERNAL EAR: Yes external ears normal Eye: COMMON NORMALS: Equal, round and reactive pupils present, EOMs intact bilaterally and conjunctivae normal CONJUNCTIVA: Yes conjunctivae normal PUPIL: Yes Equal, round and reactive pupils present Neck/C-Spine: COMMON NORMALS: full ROM, no lymphadenopathy and supple Chest: CHEST: Yes Symmetrical chest wall rise, Yes tenderness (Left lateral chest wall ribs 9 through 12) and No Surgical scars present (Chest) Resp: COMMON NORMALS: normal respiratory effort, No retractions, No use of accessory muscles and clear to auscultation bilaterally AUSCULTATION: clear to auscultation bilaterally Cardio: COMMON NORMALS: regular rate, regular rhythm, S1 normal heart sound present, S2 normal heart sound present, No gallops present (Cardio), No clicks present (Cardio), No murmurs present (Cardio) and No rub (Cardio) RATE: regular rate RHYTHM: regular rhythm HEART SOUNDS: S1 normal heart sound present, S2 normal heart sound present and no murmurs PERIPHERAL PULSES: other (Radial pulses 2+ and symmetric) GI: COMMON NORMALS: Soft to palpation, non-tender and no masses INSPECTION: No abdominal distension PALPATION: Yes Soft to palpation, No Guarding due to palpation present (GI) and No Rebound tenderness present : COMMON NORMALS: Yes no CVA tenderness BLADDER/KIDNEY EXAM: Yes no CVA tenderness Back/Pelvis: COMMON NORMALS: no CVA tenderness Extremity: COMMON NORMALS: normal to inspection, full ROM, capillary refill normal and no clubbing, cyanosis or edema Neuro: COMMON NORMALS: patient oriented x3 SENSORIUM/ORIENTATION: Yes alert Psych: APPEARANCE: Yes well kempt Skin: COMMON NORMALS: no rashes or lesions noted, no wounds, turgor normal and no jaundice GENERAL SKIN EXAM: no rashes or lesions noted and turgor normal Course Vital Signs: Vital signs: Vital Signs Temperature 98.2 F 06/21/24 20:58 Pulse Rate 90 06/22/24 02:45 Respiratory Rate 16 06/22/24 01:00 Blood Pressure 101/72 06/22/24 04:15 Pulse Oximetry 95 06/22/24 04:15 Oxygen Delivery Me thod Room Air 06/22/24 02:30 MDM - URI/Sore Throat Medical Decision Making 2 view chest x-ray unremarkable, radiology read concurs. Likely bronchitis and left chest wall contusion. Will treat with muscle relaxer and azithromycin. Differential Diagnosis Likely upper respiratory infection, viral infection, bronchitis and influenza Medical Records I reviewed the patient's medical records. Lab Data I reviewed the patient's lab results. Radiology Impressions Chest X-Ray 06/22/24 00:50 IMPRESSION: No acute pulmonary disease. Laboratory Results Coronavirus (PCR) Negative (Negative) 06/22/24 01:14 Influenza A (PCR) Negative (Negative) 06/22/24 01:14 Influenza Type B (PCR) Negative (Negative) 06/22/24 01:14 RSV (PCR) Negative (Negative) 06/22/24 01:14 All radiology interpretation(s) finalized by discharge ED provider radiology interpretation(s): No acute finding Discharge Plan Discharge Patient Disposition: Home Clinical Impression: Bronchitis Contusion of rib on left side Qualifiers: Encounter type: initial encounter Qualified Code(s): S20.212A - Contusion of left front wall of thorax, initial encounter Condition: Stable Prescriptions: New azithromycin 250 mg tablet See Rx Instructions .ROUTE .COMPLEX Qty: 6 0RF Rx Instructions: For 250 mg dose pack: take 500 mg today (day 1), then 250 mg for 4 days (days 2-5) methocarbamol 750 mg tablet 750 mg PO TID PRN (Reason: chest wall pain) Qty: 30 0RF No Action tamsulosin 0.4 mg Capsule 0.4 mg PO DAILY 30 Days Qty: 30 1RF pantoprazole 40 mg Tablet,Delayed Release (Dr/Ec) 40 mg PO DAILY 30 Days Qty: 30 1RF gabapentin 300 mg Capsule 300 mg PO TID 30 Days Qty: 90 1RF quetiapine 200 mg tablet 200 mg PO BEDTIME paroxetine HCl 20 mg tablet 20 mg PO DAILY olanzapine 10 mg tablet,disintegrating 10 mg PO BEDTIME lurasidone 40 mg tablet 40 mg PO QPM naproxen [Naprosyn] 500 mg tablet 500 mg PO BID PRN (Reason: pain) Qty: 20 0RF olanzapine [Zyprexa] 10 mg tablet 10 mg PO QPM Qty: 30 0RF fluticasone propionate 50 mcg/actuation spray,suspension 2 spray INTRANASAL DAILY duloxetine 60 mg capsule,delayed release(DR/EC) 60 mg PO DAILY ondansetron 4 mg tablet,disintegrating 4 mg PO Q6H PRN (Reason: Nausea And Vomiting) buspirone 7.5 mg tablet 7.5 mg PO BID Qty: 60 0RF hydroxyzine HCl 25 mg tablet 25 mg PO Q6H PRN (Reason: anxiety) Qty: 14 0RF Discharge Orders: Discharge ED (Routine); Ordered 06/22/24 Ordered By: Anselmo Sandoval Discharge Diet: Usual diet Discharge Activity: Resume usual activity Patient Instructions: Pain Management, Rib Contusion (ED) Coding Level of Care Code ED Plastic Roller for Camila Alvares
== END 2024-06-22 04:47 | disposition home or self-care (01) ==
PROVIDERS: Emergency Provider Emergency Medicine
DX: J40 Bronchitis, not specified as acute or chronic (principal); Z11.52 Encounter for screening for COVID-19; S20.212A Contusion of left front wall of thorax, initial encounter; Z72.0 Tobacco use; X58.XXXA Exposure to other specified factors, initial encounter
CPT/HCPCS: 71046; 87637; 96372; 99284; J1885

== ENCOUNTER → 2024-06-30 09:50 | Outpatient (BNVA) | payer MEDICAID, SELFPAY ==
[2023-12-27 15:20] VITALS: BP 128/98; BMI 17.0
== END ==
DX: R07.1 Chest pain on breathing (principal); M54.9 Dorsalgia, unspecified
CPT/HCPCS: 71046

== ENCOUNTER 2024-08-15 02:20 | Emergency (ER) | payer MEDICAID, SELFPAY ==
[2023-12-27 15:20] VITALS: BP 128/98; BMI 17.0
[2024-08-15 02:44] VITALS: BP 126/86; PULSE 74; RESP 20; TEMP 36.6; O2SAT 97; BMI 24.3
--- NOTE | 2024-08-15 03:43 | PC.NURSE ---
PT RIPPED OFF O2 MONITOR AND STATED, I AM NOT WEARING THIS SHIT. MY HANDS HURT AND ITCH.
[2024-08-15 03:53] VITALS: BP 109/72; RESP 16
[2024-08-15] MEDS: haloperidol inj 5 mg/mL INJ 1 mL IM (04:20)
[2024-08-15] MEDS: diphenhydrAMINE 50 mg/mL SDV 1mL IM (04:20)
--- NOTE | 2024-08-15 04:22 | W.ED.EXTPRO ---
HPI - Extremity Problem General: Chief complaint: Extremity Problem,Nontraumatic Stated complaint: hands/feet swollen Time Seen by Provider: 08/15/24 03:50 History of Present Illness: This patient is a 48-year-old white male who presents to the emergency department stating that he is hurting everywhere. States he is detoxing from meth. Related Data Home Medications ?Medication ?Instructions ?Recorded ?Confirmed fluticasone propionate 50 2 spray intranasal DAILY 06/09/23 06/30/24 mcg/actuation nasal spray,suspension lurasidone 40 mg tablet 40 mg PO QPM 09/22/23 06/30/24 olanzapine 10 mg disintegrating 10 mg PO BEDTIME 09/22/23 06/30/24 tablet paroxetine HCl 20 mg tablet 20 mg PO DAILY 09/22/23 06/30/24 duloxetine 60 mg capsule,delayed 60 mg PO DAILY 11/22/23 06/30/24 release ondansetron 4 mg disintegrating 4 mg PO Q6H PRN Nausea And Vomiting 11/22/23 06/30/24 tablet Previous Rx's ?Medication ?Instructions ?Recorded pantoprazole 40 mg tablet,delayed 40 mg PO DAILY 30 days #30 tabs 04/04/23 release olanzapine 10 mg tablet (Zyprexa) 10 mg PO QPM #30 tabs 04/18/24 buspirone 7.5 mg tablet 7.5 mg PO BID #60 tabs 06/04/24 hydroxyzine HCl 25 mg tablet 25 mg PO Q6H PRN anxiety #14 tabs 06/04/24 azithromycin 250 mg tablet See Rx Instructions PO .COMPLEX #6 06/22/24 tabs methocarbamol 750 mg tablet 750 mg PO TID PRN chest wall pain 06/22/24 #30 tabs albuterol sulfate 90 mcg/actuation 2 puff inhalation Q4H PRN 06/25/24 aerosol inhaler (Ventolin HFA) shortness of breath or wheezing #8.5 grams amoxicillin 875 mg-potassium 1 tab PO BID 7 days #14 tabs 06/25/24 clavulanate 125 mg tablet promethazine-DM 6.25 mg-15 mg/5 mL 5 ml PO Q4H PRN cough #118 mL 06/25/24 oral syrup Allergies Allergy/AdvReac Type Severity Reaction Status Date / Time No Known Allergies Allergy Verified 06/30/24 09:23 [facility] ED PFSH: Medical History Psychiatric care Atrial flutter Atrial fibrillation Methamphetamine abuse -UDS positive for amphetamines/THC Bipolar 1 disorder, manic, mild Depressive disorder, not elsewhere classified Adjustment disorder with mixed disturbance of emotions and conduct Alcohol use disorder -Has known history of alcohol abuse&DT Surgical History H/O hernia repair History of appendectomy Family History Other Alcoholism /alcohol abuse Social History Smoking and tobacco/nicotine status: never used tobacco/nicotine Quit status (tobacco/nicotine): has tried quititng Number of times tried to quit tobacco: 4 Second hand smoke exposure: Yes Alcohol intake: current Substance/Drug Use: current Current gender identity: Male Physical Exam Const: COMMON NORMALS: no acute distress, patient oriented x3 and no limitations GENERAL APPEARANCE: cooperative and comfortable HENMT: COMMON NORMALS: normocephalic, atraumatic, Normal nasal mucous membranes and turbinates present, moist oral mucous membranes and oropharynx normal HEAD & SCALP: normal to inspection, normocephalic and atraumatic FACE & SINUS: normal facial exam NOSE: Normal nasal mucous membranes and turbinates present Eye: COMMON NORMALS: Equal, round and reactive pupils present, EOMs intact bilaterally and conjunctivae normal GENERAL EYE: appearance normal, both eyes and all related structures CONJUNCTIVA: Yes conjunctivae normal PUPIL: Yes Equal, round and reactive pupils present Neck/C-Spine: COMMON NORMALS: supple and no JVD Chest: COMMONS NORMALS: normal inspection of the chest Resp: COMMON NORMALS: normal respiratory effort and clear to auscultation bilaterally AUSCULTATION: clear to auscultation bilaterally Cardio: COMMON NORMALS: no JVD, regular rate, regular rhythm, No gallops present (Cardio), No murmurs present (Cardio) and No rub (Cardio) RATE: regular rate RHYTHM: regular rhythm GI: COMMON NORMALS: Normal to inspection, nondistended, normoactive bowel sounds present, Soft to palpation and non-tender AUSCULTATION: Yes normoactive bowel sounds PALPATION: Yes Soft to palpation : COMMON NORMALS: Yes no CVA tenderness BLADDER/KIDNEY EXAM: Yes no CVA tenderness Back/Pelvis: COMMON NORMALS: no CVA tenderness and thoracic and lumbar spine normal to inspection Extremity: COMMON NORMALS: normal to inspection Neuro: COMMON NORMALS: patient oriented x3 and CN's II-XII intact bilaterally Psych: COMMON NORMALS: mental status grossly normal, Normal thought process present and cooperative THOUGHT PROCESS: Normal thought process present Skin: COMMON NORMALS: no rashes or lesions noted, turgor normal and no jaundice GENERAL SKIN EXAM: no rashes or lesions noted and turgor normal Course Vital Signs: Vital signs: Vital Signs Temperature 98 F 08/15/24 02:44 Pulse Rate 74 08/15/24 02:44 Respiratory Rate 16 08/15/24 03:53 Blood Pressure 109/72 08/15/24 03:53 Pulse Oximetry 97 08/15/24 02:44 MDM - Extremity (Nontraumatic) Medical Decision Making Patient was then given injections of Haldol and Benadryl. He was discharged in stable condition. Follow-up with primary care physician and/or psychiatrist for ongoing management. No radiology studies performed this visit Discharge Plan Discharge Patient Disposition: Home Clinical Impression: Drug abuse Condition: Stable Prescriptions: No Action amoxicillin-pot clavulanate 875-125 mg tablet 1 tab PO BID 7 Days Qty: 14 0RF albuterol sulfate [Ventolin HFA] 90 mcg/actuation HFA aerosol inhaler 2 puff inhalation Q4H PRN (Reason: shortness of breath or wheezing) Qty: 8.5 0RF promethazine-DM 6.25-15 mg/5 mL syrup 5 ml PO Q4H PRN (Reason: cough) Qty: 118 0RF Rx Instructions: Do not exceed more than 30ml/24hour period (6 doses) pantoprazole 40 mg Tablet,Delayed Release (Dr/Ec) 40 mg PO DAILY 30 Days Qty: 30 1RF paroxetine HCl 20 mg tablet 20 mg PO DAILY olanzapine 10 mg tablet,disintegrating 10 mg PO BEDTIME lurasidone 40 mg tablet 40 mg PO QPM olanzapine [Zyprexa] 10 mg tablet 10 mg PO QPM Qty: 30 0RF methocarbamol 750 mg tablet 750 mg PO TID PRN (Reason: chest wall pain) Qty: 30 0RF azithromycin 250 mg tablet See Rx Instructions .ROUTE .COMPLEX Qty: 6 0RF Rx Instructions: For 250 mg dose pack: take 500 mg today (day 1), then 250 mg for 4 days (days 2-5) fluticasone propionate 50 mcg/actuation spray,suspension 2 spray INTRANASAL DAILY duloxetine 60 mg capsule,delayed release(DR/EC) 60 mg PO DAILY ondansetron 4 mg tablet,disintegrating 4 mg PO Q6H PRN (Reason: Nausea And Vomiting) buspirone 7.5 mg tablet 7.5 mg PO BID Qty: 60 0RF hydroxyzine HCl 25 mg tablet 25 mg PO Q6H PRN (Reason: anxiety) Qty: 14 0RF Discharge Orders: Discharge ED (Routine); Ordered 08/15/24 Ordered By: Jair Diaz Print Language: Hungarian Coding Level of Care Code ED Manager Acquisition for Camila Alvares
== END 2024-08-15 04:46 | disposition home or self-care (01) ==
PROVIDERS: Emergency Provider Emergency Medicine
DX: F15.10 Other stimulant abuse, uncomplicated (principal)
CPT/HCPCS: 96372; 99284; J1200; J1630

== ENCOUNTER 2024-08-19 08:52 | Emergency (ER) | payer MEDICAID, SELFPAY ==
[2023-12-27 15:20] VITALS: BP 128/98; BMI 17.0
[2024-08-19 08:56] VITALS: BP 98/73; PULSE 75; RESP 18; TEMP 36.4; O2SAT 95; BMI 19.8
[2024-08-19] MEDS: tetanus-dipt-pertussis 0.5 mL SDV IM (09:10)
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
--- NOTE | 2024-08-19 09:26 | CT_ITS ---
WS: [id number] CT CERVICAL SPINE HISTORY: Trauma TECHNIQUE: Contiguous 2.0 mm axial imaging performed through the entire cervical spine. Sagittal and coronal reformats also performed. All CT scans at [facility] use at least one of these dose optimization techniques: automated exposure control; mA and/or kV adjustment per patient size (includes targeted exams where dose is matched to clinical indication); or iterative reconstruction. DLP: 1310.50 mGy.cm COMPARISON: None available. Normal cervical alignment. Mild disc space narrowing. Mild hypertrophic osteophytosis from C3-C6. Craniocervical junction and odontoid processes are normal. Facet joints are normally aligned. C2-C3: Normal. C3-C4: Osteophytic ridging. No stenosis. C4-C5: Mild osteophytic ridging. No stenosis. C5-C6: Moderate osteophytic ridging encroaching upon the ventral thecal sac and foramina. Mild central and bilateral foraminal stenosis. C6-C7: Osteophytic ridging. No stenosis. C7-T1: Normal. Lung apices are clear. Small bilateral cervical chain lymph nodes. CT/CT cervical spin wo con* [id number] IMPRESSION: 1. No acute cervical spine fracture. 2. Mild cervical spondylosis. 3. Mild central and bilateral foraminal stenosis at C5-6 due to osteophytic ri dging.
--- NOTE | 2024-08-19 09:26 | CT_ITS ---
WS: [id number] CT HEAD NONCONTRAST HISTORY: Trauma TECHNIQUE: Contiguous axial imaging performed through the brain. Bone and soft tissue windows. Sagittal and coronal reformats reviewed. All CT scans at [facility] use at least one of these dose optimization techniques: automated exposure control; mA and/or kV adjustment per patient size (includes targeted exams where dose is matched to clinical indication); or iterative reconstruction. DLP: 1310.50 mGy.cm COMPARISON: 03/23/2023 No acute intracranial hemorrhage, midline shift or mass effect. Mild atrophy and mild small vessel disease. No prior infarct. Ventricles: Normal size with no hydrocephalus. No inferior displacement of the cerebellar tonsils. Paranasal sinuses: Mucoperiosteal thickening in the maxillary sinuses with air- fluid levels. Mastoid air cells: Well pneumatized. Calvarium and scalp: Skull is intact with no soft tissue edema or swelling. CT/CT head wo con* [id number] IMPRESSION: 1. No acute intracranial hemorrhage or edema. 2. Mild atrophy and small vessel disease. Similar to the prior study from 03/04. 3. Bilateral maxillary sinusitis.
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
--- NOTE | 2024-08-19 09:34 | PC.PHAR ---
Patient stated he takes his medication but then stated it has been a while since he had taken any . Verified with pharmacies of last fill dates .
[2024-08-19 09:42] LABS: Basophils % 0.3 %; Eosinophils # 0.1 10^3/uL (0.0-0.8); Eosinophils % 1.1 %; Hematocrit 35.6 % (37-53); Lymphocytes # 1.6 10^3/uL (0.8-4.8); Lymphocytes % 25.6 %; Mean Corpuscular HGB Conc 32.9 g/dL (30-55); Mean Corpuscular Hemoglobin 35.7 pg (27-33); Mean Corpuscular Volume 108.5 fl (82-101); Mean Platelet Volume 9.1 fL (7.4-10.4); Monocytes # 0.8 10^3/uL (0.2-0.9); Monocytes % 13.2 %; Neutrophils # 3.76 10^3/uL (1.8-7.7); Neutrophils % 59.3 %; Nucleated Red Blood Cells % 0 %; Platelet Count 342 10^3/cmm (157-399); Red Blood Count 3.28 10^6/uL (3.85-5.65); Red Cell Distribution Width 14.3 % (12.1-15.1); White Blood Count 6.34 10^3/uL (3.29-11.43)
[2024-08-19 09:55] LABS: Alanine Aminotransferase 31 U/L (0-41); Albumin Level 3.3 g/dL (3.5-5.2); Alkaline Phosphatase 76 U/L (40-130); Anion Gap 13.8 (5-19); Aspartate Amino Transferase 28 U/L (0-40); Blood Urea Nitrogen 13 mg/dL (6-20); Calcium 7.9 mg/dL (8.5-10.5); Carbon Dioxide 28 mmol/L (22-29); Chloride 97 mmol/L (98-107); Creatinine Clr Calc Pharmacy 119.2518; Globulin 3.1 g/dL (1.3-4.6); Glomerular Filtration Rate 120.9 mL/min (90-130); Glucose 92 mg/dL (65-115); Lipase 18 U/L (13-60); Osmolality Calculated 280 mOsm/kg (285-295); Potassium 3.8 mmol/L (3.5-5.1); Sodium 135 mmol/L (136-145); Total Bilirubin 0.4 mg/dL (0.15-1.2); Total Protein 6.4 g/dL (6.6-8.7)
[2024-08-19 09:59] LABS: Alcohol Level < 10 mg/dL (0-10)
[2024-08-19 10:58] VITALS: BP 117/75; PULSE 70; O2SAT 96
[2024-08-19] MEDS: lidocaine-epi 1% 20 mL INJ INJECTION (13:41)
[2024-08-19 14:14] VITALS: BP 110/68; PULSE 91; O2SAT 94
--- NOTE | 2024-08-20 16:21 | DCPLANNER ---
faxed outpatient CT order to scheduling for er f/u
== END 2024-08-19 14:15 | disposition home or self-care (01) ==
PROVIDERS: Emergency Provider Family Medicine
DX: S01.81XA Laceration without foreign body of other part of head, initial encounter (principal); Y04.8XXA Assault by other bodily force, initial encounter; Z23 Encounter for immunization
CPT/HCPCS: 70450; 71045; 72125; 80053; 80307; 83690; 85025; 90471; 90715; 99284; J9999

== ENCOUNTER 2024-08-28 23:29 | Emergency (ER) | payer MEDICAID, SELFPAY ==
[2023-12-27 15:20] VITALS: BP 128/98; BMI 17.0
[2024-08-28 23:35] VITALS: BMI 25.8
--- NOTE | 2024-08-28 23:39 | W.ED.RECABL ---
HPI - Recheck/Abnormal Lab/Rx General: Chief Complaint: Wound/Laceration Stated Complaint: would like stitches removed Time Seen by Provider: 08/28/24 23:31 Source: patient Mode of arrival: ambulatory Limitations: no limitations History of Present Illness: Patient is a 48-year-old male who presents to ED today with a request for suture removal to his left eyebrow region. Sutures placed here 9 days ago. No issues. Wound has healed well. complaint: suture/staple removal Onset/Timin Initial visit (ago): day(s) Initial visit for: laceration Returns today for: staple/stitch removal Symptoms since prior visit: no new symptoms Associated symptoms: none Related Data Home Medications ?Medication ?Instructions ?Recorded ?Confirmed lurasidone 40 mg tablet 40 mg PO QPM 09/22/23 08/19/24 paroxetine HCl 20 mg tablet 20 mg PO DAILY 09/22/23 08/19/24 propranolol 10 mg tablet 10 mg PO BID 08/19/24 08/19/24 quetiapine 300 mg tablet 300 mg PO BEDTIME 08/19/24 08/19/24 tamsulosin 0.4 mg capsule 0.4 mg PO DAILY 08/19/24 08/19/24 trazodone 150 mg tablet 150 mg PO BEDTIME 08/19/24 08/19/24 Previous Rx's ?Medication ?Instructions ?Recorded albuterol sulfate 90 mcg/actuation 2 puff inhalation Q4H PRN 06/25/24 aerosol inhaler (Ventolin HFA) shortness of breath or wheezing #8.5 grams fluticasone propionate 50 2 spray intranasal DAILY #16 grams 08/16/24 mcg/actuation nasal spray,suspension bacitracin 500 unit/gram topical 1 applic topical BID #14 grams 08/19/24 ointment (Bacitraycin Plus) Allergies Allergy/AdvReac Type Severity Reaction Status Date / Time No Known Allergies Allergy Verified 08/16/24 13:57 Review of Systems Const: Denies: fever(s) Eyes: Denies: change in vision, blurry vision, photophobia, floaters or seeing flashes Musc: Denies: neck pain Skin/Breast: Reports: other (healed laceration to L eyebrow) Neuro: Denies: headache(s) PFSH ED PFSH: Medical History Psychiatric care Atrial flutter Atrial fibrillation Methamphetamine abuse -UDS positive for amphetamines/THC Bipolar 1 disorder, manic, mild Depressive disorder, not elsewhere classified Adjustment disorder with mixed disturbance of emotions and conduct Alcohol use disorder -Has known history of alcohol abuse&DT Surgical History H/O hernia repair History of appendectomy Family History Other Alcoholism /alcohol abuse Social History Smoking and tobacco/nicotine status: never used tobacco/nicotine Quit status (tobacco/nicotine): has tried quititng Number of times tried to quit tobacco: 4 Second hand smoke exposure: Yes Alcohol intake: current Substance/Drug Use: current Current gender identity: Male Physical Exam Const: COMMON NORMALS: no acute distress, average body habitus, no limitations, alert and well nourished Eye: COMMON NORMALS: Equal, round and reactive pupils present and EOMs intact bilaterally GENERAL EYE: appearance normal, both eyes and all related structures and normal light reflex PUPIL: Yes Equal, round and reactive pupils present DIRECT OPHTHALMOSCOPY: Yes normal light reflex EYE IMAGES:  1. well healed laceration Neuro: SENSORIUM/ORIENTATION: Yes alert Course Vital Signs: Vital signs: Vital Signs Temperature 97.2 F L 08/28/24 23:44 Blood Pressure 109/76 08/28/24 23:44 MDM - Recheck/Abnormal Lab/Rx Medical Decision Making Laceration has healed nicely. Sutures removed without difficulty. He is ready for discharge. Medical Records I reviewed the patient's medical records. No radiology studies performed this visit Discharge Plan Discharge Patient Disposition: Home Clinical Impression: Visit for suture removal Condition: Stable Prescriptions: No Action albuterol sulfate [Ventolin HFA] 90 mcg/actuation HFA aerosol inhaler 2 puff inhalation Q4H PRN (Reason: shortness of breath or wheezing) Qty: 8.5 0RF fluticasone propionate 50 mcg/actuation spray,suspension 2 spray INTRANASAL DAILY Qty: 16 0RF paroxetine HCl 20 mg tablet 20 mg PO DAILY lurasidone 40 mg tablet 40 mg PO QPM quetiapine 300 mg tablet 300 mg PO BEDTIME propranolol 10 mg tablet 10 mg PO BID tamsulosin 0.4 mg capsule 0.4 mg PO DAILY trazodone 150 mg tablet 150 mg PO BEDTIME bacitracin [Bacitraycin Plus] 500 unit/gram ointment 1 applic topical BID Qty: 14 0RF Discharge Orders: Discharge ED (Routine); Ordered 08/28/24 Ordered By: Gloria Isidro Patient Instructions: Stitches Removal (ED) Print Language: Sinhala Coding Level of Care Code ED Wet Cotton Feeder for Camila Alvares
[2024-08-28 23:44] VITALS: BP 109/76; TEMP 36.2
--- NOTE | 2024-08-28 23:45 | PC.NURSE ---
pt refused to have vitals taken because he did not want his gloves taken off and he just needs stitches removed
== END 2024-08-28 23:46 | disposition home or self-care (01) ==
PROVIDERS: Emergency Provider Physician Assistant
DX: Z48.02 Encounter for removal of sutures (principal); Z72.0 Tobacco use
CPT/HCPCS: 99281

== ENCOUNTER 2024-08-29 09:00 | Emergency (ER) | payer MEDICAID, SELFPAY ==
[2023-12-27 15:20] VITALS: BP 128/98; BMI 17.0
[2024-08-29 09:07] VITALS: BP 136/90; PULSE 94; RESP 18; TEMP 36.7; O2SAT 96
--- NOTE | 2024-08-29 09:29 | W.ED.EXTPRO ---
HPI - Extremity Problem General: Chief complaint: Extremity Problem,Nontraumatic Stated complaint: right finger discoloration Time Seen by Provider: 08/29/24 09:09 History of Present Illness: 48-year-old man who is currently homeless who presents emergency room with finger pain. He has known Raynaud's. He had slept outside last night and woke up with his fingers like this. He gone to the crisis center and the nurse there brought him to the emergency room if she was concerned that he might lose his fingers. Apparently just in that amount of time it is proved some. His left third and fourth digits are discolored distally. Nursing reports this is much improved but it was the entire finger. He does not take any medications for this. Related Data Home Medications ?Medication ?Instructions ?Recorded ?Confirmed lurasidone 40 mg tablet 40 mg PO QPM 09/22/23 08/19/24 paroxetine HCl 20 mg tablet 20 mg PO DAILY 09/22/23 08/19/24 propranolol 10 mg tablet 10 mg PO BID 08/19/24 08/19/24 quetiapine 300 mg tablet 300 mg PO BEDTIME 08/19/24 08/19/24 tamsulosin 0.4 mg capsule 0.4 mg PO DAILY 08/19/24 08/19/24 trazodone 150 mg tablet 150 mg PO BEDTIME 08/19/24 08/19/24 Previous Rx's ?Medication ?Instructions ?Recorded albuterol sulfate 90 mcg/actuation 2 puff inhalation Q4H PRN 06/25/24 aerosol inhaler (Ventolin HFA) shortness of breath or wheezing #8.5 grams fluticasone propionate 50 2 spray intranasal DAILY #16 grams 08/16/24 mcg/actuation nasal spray,suspension bacitracin 500 unit/gram topical 1 applic topical BID #14 grams 08/19/24 ointment (Bacitraycin Plus) nifedipine 30 mg tablet,extended 30 mg PO DAILY #30 tabs 08/29/24 release 24 hr (Procardia XL) Allergies Allergy/AdvReac Type Severity Reaction Status Date / Time No Known Allergies Allergy Verified 08/16/24 13:57 Review of Systems Narrative: Constitutional symptoms: Negative except as documented in HPI. Skin symptoms: Negative except as documented in HPI. Eye symptoms: Negative except as documented in HPI. ENMT symptoms: Negative except as documented in HPI. Respiratory symptoms: Negative except as documented in HPI. Cardiovascular symptoms: Negative except as documented in HPI. Gastrointestinal symptoms: Negative except as documented in HPI. Genitourinary symptoms: Negative except as documented in HPI. Musculoskeletal symptoms: Negative except as documented in HPI. Neurologic symptoms: Negative except as documented in HPI. Psychiatric symptoms: Negative except as documented in HPI. Endocrine symptoms: Negative except as documented in HPI. PFSH ED PFSH: Medical History Psychiatric care Atrial flutter Atrial fibrillation Methamphetamine abuse -UDS positive for amphetamines/THC Bipolar 1 disorder, manic, mild Depressive disorder, not elsewhere classified Adjustment disorder with mixed disturbance of emotions and conduct Alcohol use disorder -Has known history of alcohol abuse&DT Surgical History H/O hernia repair History of appendectomy Family History Other Alcoholism /alcohol abuse Social History Smoking and tobacco/nicotine status: never used tobacco/nicotine Quit status (tobacco/nicotine): has tried quititng Number of times tried to quit tobacco: 4 Second hand smoke exposure: Yes Alcohol intake: current Substance/Drug Use: current Current gender identity: Male Physical Exam Narrative: EXAM NARRATIVE: General: Alert, no acute distress. Skin: warm and dry Head: Normocephalic Neck: Trachea midline Eye: Extraocular movements are intact. Ears, nose, mouth and throat: Oral mucosa moist Respiratory: Respirations are non-labored Musculoskeletal: Normal ROM. Distal third and fourth digits of the left hand are purpleish/discolored. Neurological: Alert and oriented, No focal neurological deficit observed. Psychiatric: Cooperative, appropriate mood & affect. Course Vital Signs: Vital signs: Vital Signs Temperature 98.1 F 08/29/24 09:07 Pulse Rate 81 08/29/24 10:51 Respiratory Rate 18 08/29/24 09:07 Blood Pressure 141/73 08/29/24 10:51 Pulse Oximetry 99 08/29/24 10:51 Oxygen Delivery Me thod Room Air 08/29/24 09:07 MDM - Extremity (Nontraumatic) Medical Decision Making Patient had improvement in symptoms. Assessment and plan: Raynaud's ?Nifedipine and hydrocodone. Patient is improved - Discharged home - Discussed plan with patient. Answered any questions. - Evaluation and treatment of this problem were appropriate in the emergency setting. No radiology studies performed this visit Discharge Plan Discharge Patient Disposition: Home Clinical Impression: Homeless Raynauds disease Qualifiers: Raynaud?s-associated gangrene presence: without gangrene Qualified Code(s): I73.00 - Raynaud's syndrome without gangrene Condition: Stable Prescriptions: New nifedipine [Procardia XL] 30 mg tablet extended release 24hr 30 mg PO DAILY Qty: 30 1RF No Action albuterol sulfate [Ventolin HFA] 90 mcg/actuation HFA aerosol inhaler 2 puff inhalation Q4H PRN (Reason: shortness of breath or wheezing) Qty: 8.5 0RF fluticasone propionate 50 mcg/actuation spray,suspension 2 spray INTRANASAL DAILY Qty: 16 0RF paroxetine HCl 20 mg tablet 20 mg PO DAILY lurasidone 40 mg tablet 40 mg PO QPM quetiapine 300 mg tablet 300 mg PO BEDTIME propranolol 10 mg tablet 10 mg PO BID tamsulosin 0.4 mg capsule 0.4 mg PO DAILY trazodone 150 mg tablet 150 mg PO BEDTIME bacitracin [Bacitraycin Plus] 500 unit/gram ointment 1 applic topical BID Qty: 14 0RF Discharge Orders: Discharge ED (Routine); Ordered 08/29/24 Ordered By: Dorina George Discharge Diet: Usual diet Discharge Activity: Increase activity as tolerated Patient Instructions: Raynaud Disease (ED), Opioid Safety, Pain Management Activity Restrictions/Additional Instructions: Thank you for choosing [facility] for your healthcare needs today. Please realize this is an emergency room and that we are providing you with a medical screening exam and this may not be complete and all inclusive of all the testing and or work up that you may need to determine your ailment or severity of your illness. You have been screened and evaluated and felt safe for discharge. Health conditions do change or evolve sometimes and as such it is important that you follow up with your Primary Doctor to be re checked, 3-5 days is a general good time frame for follow up. You are always welcome to return to the ED for re assessment if your symptoms are worsening or you have new concerns Print Language: Luxembourgish Coding Level of Care Code ED Deputy Editor In Chief for Camila Alvares
[2024-08-29] MEDS: NIFEdipine 10 mg Capsule 20 MG PO (09:53)
[2024-08-29] MEDS: HYDROcodone-acetaminophen 5-325 mg Tablet 1 TAB PO (09:53)
[2024-08-29 10:51] VITALS: BP 141/73; PULSE 81; O2SAT 99
== END 2024-08-29 10:51 | disposition home or self-care (01) ==
PROVIDERS: Emergency Provider Emergency Medicine
DX: I73.00 Raynaud's syndrome without gangrene (principal); Z59.00 Homelessness unspecified
CPT/HCPCS: 99283; J9999

== ENCOUNTER 2024-08-31 04:57 | Emergency (ER) | payer MEDICAID, SELFPAY ==
[2023-12-27 15:20] VITALS: BP 128/98; BMI 17.0
[2024-08-31 05:03] VITALS: BP 130/73; PULSE 87; RESP 18; TEMP 36.7; O2SAT 95; BMI 21.2
--- NOTE | 2024-08-31 05:20 | W.ED.EXTPRO ---
HPI - Extremity Problem General: Chief complaint: Extremity Problem,Nontraumatic Stated complaint: Rt Hand Swollen Time Seen by Provider: 08/31/24 05:02 History of Present Illness: 48-year-old male with bilateral hand swelling, right worse than left. He was wearing a ring on his right hand, and cannot get it off. Swelling is nontraumatic. He noticed this swelling while sleeping on the street this morning as he is homeless. He states that the swelling is somewhat improved now that he is in a warm environment. Related Data Home Medications ?Medication ?Instructions ?Recorded ?Confirmed lurasidone 40 mg tablet 40 mg PO QPM 09/22/23 08/19/24 paroxetine HCl 20 mg tablet 20 mg PO DAILY 09/22/23 08/19/24 propranolol 10 mg tablet 10 mg PO BID 08/19/24 08/19/24 quetiapine 300 mg tablet 300 mg PO BEDTIME 08/19/24 08/19/24 tamsulosin 0.4 mg capsule 0.4 mg PO DAILY 08/19/24 08/19/24 trazodone 150 mg tablet 150 mg PO BEDTIME 08/19/24 08/19/24 Previous Rx's ?Medication ?Instructions ?Recorded albuterol sulfate 90 mcg/actuation 2 puff inhalation Q4H PRN 06/25/24 aerosol inhaler (Ventolin HFA) shortness of breath or wheezing #8.5 grams fluticasone propionate 50 2 spray intranasal DAILY #16 grams 08/16/24 mcg/actuation nasal spray,suspension bacitracin 500 unit/gram topical 1 applic topical BID #14 grams 08/19/24 ointment (Bacitraycin Plus) nifedipine 30 mg tablet,extended 30 mg PO DAILY #30 tabs 08/29/24 release 24 hr (Procardia XL) Allergies Allergy/AdvReac Type Severity Reaction Status Date / Time No Known Allergies Allergy Verified 08/31/24 05:07 [facility] PFSH: Medical History Psychiatric care Atrial flutter Atrial fibrillation Methamphetamine abuse -UDS positive for amphetamines/THC Bipolar 1 disorder, manic, mild Depressive disorder, not elsewhere classified Adjustment disorder with mixed disturbance of emotions and conduct Alcohol use disorder -Has known history of alcohol abuse&DT Surgical History H/O hernia repair History of appendectomy Family History Other Alcoholism /alcohol abuse Social History Smoking and tobacco/nicotine status: never used tobacco/nicotine Quit status (tobacco/nicotine): has tried quititng Number of times tried to quit tobacco: 4 Second hand smoke exposure: Yes Alcohol intake: current Substance/Drug Use: current Current gender identity: Male Physical Exam Const: COMMON NORMALS: no acute distress GENERAL APPEARANCE: cooperative; not ill appearing Eye: COMMON NORMALS: Equal, round and reactive pupils present, EOMs intact bilaterally, conjunctivae normal and no scleral icterus CONJUNCTIVA: Yes conjunctivae normal PUPIL: Yes Equal, round and reactive pupils present Resp: COMMON NORMALS: normal respiratory effort and No use of accessory muscles Cardio: COMMON NORMALS: regular rate and regular rhythm RATE: regular rate RHYTHM: regular rhythm Extremity: NARRATIVE EXTREMITY EXAM: Bilateral hands, right greater than left, diffuse soft tissue swelling. Nonpitting. Capillary refill is normal. Slight appearance of pernio present diffusely. Course Vital Signs: Vital signs: Vital Signs Temperature 98.0 F 08/31/24 05:03 Pulse Rate 80 08/31/24 05:22 Respiratory Rate 18 08/31/24 05:03 Blood Pressure 130/73 08/31/24 05:22 Pulse Oximetry 94 08/31/24 05:22 Oxygen Delivery Me thod Room Air 08/31/24 05:22 MDM - Extremity (Nontraumatic) Medical Decision Making Patient has a ring on the right hand that is removed with surgical lube and manipulation. He is given Norvasc, aspirin 325, and dexamethasone for edema, likely related to pernio or slight chilblains. His hands were warmed here, which has helped as well. He will be allowed discharge. All radiology interpretation(s) finalized by discharge Discharge Plan Discharge Patient Disposition: Home Clinical Impression: Raynauds disease Qualifiers: Raynaud?s-associated gangrene presence: without gangrene Qualified Code(s): I73.00 - Raynaud's syndrome without gangrene Condition: Stable Prescriptions: No Action albuterol sulfate [Ventolin HFA] 90 mcg/actuation HFA aerosol inhaler 2 puff inhalation Q4H PRN (Reason: shortness of breath or wheezing) Qty: 8.5 0RF fluticasone propionate 50 mcg/actuation spray,suspension 2 spray INTRANASAL DAILY Qty: 16 0RF paroxetine HCl 20 mg tablet 20 mg PO DAILY lurasidone 40 mg tablet 40 mg PO QPM quetiapine 300 mg tablet 300 mg PO BEDTIME propranolol 10 mg tablet 10 mg PO BID tamsulosin 0.4 mg capsule 0.4 mg PO DAILY trazodone 150 mg tablet 150 mg PO BEDTIME bacitracin [Bacitraycin Plus] 500 unit/gram ointment 1 applic topical BID Qty: 14 0RF nifedipine [Procardia XL] 30 mg tablet extended release 24hr 30 mg PO DAILY Qty: 30 1RF Discharge Orders: Discharge ED (Routine); Ordered 08/31/24 Ordered By: Pete Mccurdy Referrals: Chayito Cali MD [Primary Care Provider] - 1-3 days Patient Instructions: Raynaud Disease (ED), Opioid Safety, Pain Management Activity Restrictions/Additional Instructions: Medications you were given should help over the next 12 to 24 hours. Keep your hands warm, and do not let them get cold. Do not put your ring back on until all of the swelling is dissipated from your hands. Return for problems. Print Language: Mongolian Coding Level of Care Code ED Veterinary Toxicologist for Camila Alvares
[2024-08-31 05:22] VITALS: BP 130/73; PULSE 80; O2SAT 94
[2024-08-31] MEDS: amlodipine 5 mg Tablet PO (05:26)
[2024-08-31] MEDS: dexamethasone 10 mg/mL INJ 8 MG PO (05:27)
[2024-08-31] MEDS: aspirin 325 mg Tablet PO (05:28)
[2024-08-31 05:56] VITALS: BP 109/65; PULSE 78; RESP 18; O2SAT 91
== END 2024-08-31 05:58 | disposition home or self-care (01) ==
PROVIDERS: Emergency Provider Emergency Medicine; PCP Family Medicine
DX: I73.00 Raynaud's syndrome without gangrene (principal)
CPT/HCPCS: 99283; J1100; J9999

== ENCOUNTER 2024-09-03 19:16 | Emergency (ER) | payer MEDICAID, SELFPAY ==
[2023-12-27 15:20] VITALS: BP 128/98; BMI 17.0
[2024-09-03 19:40] VITALS: BP 111/72; PULSE 79; TEMP 36.3; O2SAT 99
--- NOTE | 2024-09-03 22:27 | W.ED.EXTPRO ---
HPI - Extremity Problem General: Chief complaint: Extremity Problem,Nontraumatic Stated complaint: Finger numbness Time Seen by Provider: 09/03/24 22:27 History of Present Illness: 48-year-old man who is homeless and has Raynaud's disease who presents emergency room with finger pain. Apparently he had been sleeping in the [facility] bathroom and when he had been asked to leave he called an ambulance because his fingers hurt. Related Data Home Medications ?Medication ?Instructions ?Recorded ?Confirmed lurasidone 40 mg tablet 40 mg PO QPM 09/22/23 08/19/24 paroxetine HCl 20 mg tablet 20 mg PO DAILY 09/22/23 08/19/24 propranolol 10 mg tablet 10 mg PO BID 08/19/24 08/19/24 quetiapine 300 mg tablet 300 mg PO BEDTIME 08/19/24 08/19/24 tamsulosin 0.4 mg capsule 0.4 mg PO DAILY 08/19/24 08/19/24 trazodone 150 mg tablet 150 mg PO BEDTIME 08/19/24 08/19/24 Previous Rx's ?Medication ?Instructions ?Recorded albuterol sulfate 90 mcg/actuation 2 puff inhalation Q4H PRN 06/25/24 aerosol inhaler (Ventolin HFA) shortness of breath or wheezing #8.5 grams fluticasone propionate 50 2 spray intranasal DAILY #16 grams 08/16/24 mcg/actuation nasal spray,suspension bacitracin 500 unit/gram topical 1 applic topical BID #14 grams 08/19/24 ointment (Bacitraycin Plus) nifedipine 30 mg tablet,extended 30 mg PO DAILY #30 tabs 08/29/24 release 24 hr (Procardia XL) Allergies Allergy/AdvReac Type Severity Reaction Status Date / Time No Known Allergies Allergy Verified 09/03/24 19:47 Review of Systems Narrative: Constitutional symptoms: Negative except as documented in HPI. Skin symptoms: Negative except as documented in HPI. Eye symptoms: Negative except as documented in HPI. ENMT symptoms: Negative except as documented in HPI. Respiratory symptoms: Negative except as documented in HPI. Cardiovascular symptoms: Negative except as documented in HPI. Gastrointestinal symptoms: Negative except as documented in HPI. Genitourinary symptoms: Negative except as documented in HPI. Musculoskeletal symptoms: Negative except as documented in HPI. Neurologic symptoms: Negative except as documented in HPI. Psychiatric symptoms: Negative except as documented in HPI. Endocrine symptoms: Negative except as documented in HPI. PFSH ED PFSH: Medical History Psychiatric care Atrial flutter Atrial fibrillation Methamphetamine abuse -UDS positive for amphetamines/THC Bipolar 1 disorder, manic, mild Depressive disorder, not elsewhere classified Adjustment disorder with mixed disturbance of emotions and conduct Alcohol use disorder -Has known history of alcohol abuse&DT Surgical History H/O hernia repair History of appendectomy Family History Other Alcoholism /alcohol abuse Social History Smoking and tobacco/nicotine status: never used tobacco/nicotine Quit status (tobacco/nicotine): has tried quititng Number of times tried to quit tobacco: 4 Second hand smoke exposure: Yes Alcohol intake: current Substance/Drug Use: current Current gender identity: Male Physical Exam Narrative: EXAM NARRATIVE: General: Alert, no acute distress. Skin: Warm, dry. Does have some mild discoloration of his fingers. Good sats though. Head: Normocephalic, atraumatic. Neck: Supple, trachea midline. Eye: Extraocular movements are intact. Ears, nose, mouth and throat: mucosa moist. Cardiovascular: Regular, Normal peripheral perfusion. Respiratory: Lungs are clear to auscultation, respirations are non-labored, breath sounds are equal, Symmetrical chest wall expansion. Gastrointestinal: Soft, Nontender, Non distended Musculoskeletal: Normal ROM, no deformity. Neurological: Alert and oriented, No focal neurological deficit observed. Psychiatric: Cooperative, appropriate mood & affect. Course Vital Signs: Vital signs: Vital Signs Temperature 97.4 F L 09/03/24 19:40 Pulse Rate 79 09/03/24 19:40 Blood Pressure 111/72 09/03/24 19:40 Pulse Oximetry 99 09/03/24 19:40 Oxygen Delivery Me thod Room Air 09/03/24 19:40 MDM - Extremity (Nontraumatic) Medical Decision Making Assessment and plan: Raynaud's ? P.o. nifedipine and p.o. Eads in the emergency room. He is not sure if he filled his prescription for nifedipine that I wrote for him a few days ago. - Discharged home - Discussed plan with patient. Answered any questions. - Evaluation and treatment of this problem were appropriate in the emergency setting. No radiology studies performed this visit Discharge Plan Discharge Patient Disposition: Home Clinical Impression: Raynauds disease Qualifiers: Raynaud?s-associated gangrene presence: without gangrene Qualified Code(s): I73.00 - Raynaud's syndrome without gangrene Condition: Stable Prescriptions: No Action albuterol sulfate [Ventolin HFA] 90 mcg/actuation HFA aerosol inhaler 2 puff inhalation Q4H PRN (Reason: shortness of breath or wheezing) Qty: 8.5 0RF fluticasone propionate 50 mcg/actuation spray,suspension 2 spray INTRANASAL DAILY Qty: 16 0RF paroxetine HCl 20 mg tablet 20 mg PO DAILY lurasidone 40 mg tablet 40 mg PO QPM quetiapine 300 mg tablet 300 mg PO BEDTIME propranolol 10 mg tablet 10 mg PO BID tamsulosin 0.4 mg capsule 0.4 mg PO DAILY trazodone 150 mg tablet 150 mg PO BEDTIME bacitracin [Bacitraycin Plus] 500 unit/gram ointment 1 applic topical BID Qty: 14 0RF nifedipine [Procardia XL] 30 mg tablet extended release 24hr 30 mg PO DAILY Qty: 30 1RF Discharge Orders: Discharge ED (Routine); Ordered 09/03/24 Ordered By: Dorina George Referrals: Chayito Cali MD [Primary Care Provider] - Discharge Diet: Usual diet Discharge Activity: Increase activity as tolerated Patient Instructions: Raynaud Disease (ED), Opioid Safety, Pain Management Activity Restrictions/Additional Instructions: Thank you for choosing [facility] for your healthcare needs today. Please realize this is an emergency room and that we are providing you with a medical screening exam and this may not be complete and all inclusive of all the testing and or work up that you may need to determine your ailment or severity of your illness. You have been screened and evaluated and felt safe for discharge. Health conditions do change or evolve sometimes and as such it is important that you follow up with your Primary Doctor to be re checked, 3-5 days is a general good time frame for follow up. You are always welcome to return to the ED for re assessment if your symptoms are worsening or you have new concerns Print Language: Luxembourger Coding Level of Care Code ED Medical Claims Representative for Camila Alvares
[2024-09-03] MEDS: HYDROcodone-acetaminophen 5-325 mg Tablet 1 TAB PO (23:07)
[2024-09-03] MEDS: NIFEdipine ER (24 hr) 30 mg Tablet 60 MG PO (23:08)
[2024-09-03 23:14] VITALS: BP 143/93
[2024-09-03 23:49] VITALS: BP 130/78; PULSE 90; RESP 14; O2SAT 90
== END 2024-09-03 23:17 | disposition home or self-care (01) ==
PROVIDERS: Emergency Provider Emergency Medicine; PCP Family Medicine
DX: I73.00 Raynaud's syndrome without gangrene (principal)
CPT/HCPCS: 99283; J9999

== ENCOUNTER 2024-09-04 02:46 | Emergency (ER) | payer MEDICAID, SELFPAY ==
[2023-12-27 15:20] VITALS: BP 128/98; BMI 17.0
[2024-09-04 03:22] VITALS: BP 127/78; PULSE 79; RESP 18; TEMP 36.9; O2SAT 98; BMI 24.3
--- NOTE | 2024-09-04 03:28 | W.ED.EXTPRO ---
HPI - Extremity Problem General: Chief complaint: Extremity Problem,Nontraumatic Stated complaint: hands still numb swollen, cant remember Time Seen by Provider: 09/04/24 03:22 History of Present Illness: Patient presents again with finger pain. He has not filled the prescription he was given. I gave him some nifedipine earlier tonight and hydrocodone. Related Data Home Medications ?Medication ?Instructions ?Recorded ?Confirmed lurasidone 40 mg tablet 40 mg PO QPM 09/22/23 08/19/24 paroxetine HCl 20 mg tablet 20 mg PO DAILY 09/22/23 08/19/24 propranolol 10 mg tablet 10 mg PO BID 08/19/24 08/19/24 quetiapine 300 mg tablet 300 mg PO BEDTIME 08/19/24 08/19/24 tamsulosin 0.4 mg capsule 0.4 mg PO DAILY 08/19/24 08/19/24 trazodone 150 mg tablet 150 mg PO BEDTIME 08/19/24 08/19/24 Previous Rx's ?Medication ?Instructions ?Recorded albuterol sulfate 90 mcg/actuation 2 puff inhalation Q4H PRN 06/25/24 aerosol inhaler (Ventolin HFA) shortness of breath or wheezing #8.5 grams fluticasone propionate 50 2 spray intranasal DAILY #16 grams 08/16/24 mcg/actuation nasal spray,suspension bacitracin 500 unit/gram topical 1 applic topical BID #14 grams 08/19/24 ointment (Bacitraycin Plus) nifedipine 30 mg tablet,extended 30 mg PO DAILY #30 tabs 08/29/24 release 24 hr (Procardia XL) Allergies Allergy/AdvReac Type Severity Reaction Status Date / Time No Known Allergies Allergy Verified 09/03/24 19:47 Review of Systems Narrative: Constitutional symptoms: Negative except as documented in HPI. Skin symptoms: Negative except as documented in HPI. Eye symptoms: Negative except as documented in HPI. ENMT symptoms: Negative except as documented in HPI. Respiratory symptoms: Negative except as documented in HPI. Cardiovascular symptoms: Negative except as documented in HPI. Gastrointestinal symptoms: Negative except as documented in HPI. Genitourinary symptoms: Negative except as documented in HPI. Musculoskeletal symptoms: Negative except as documented in HPI. Neurologic symptoms: Negative except as documented in HPI. Psychiatric symptoms: Negative except as documented in HPI. Endocrine symptoms: Negative except as documented in HPI. PFSH ED PFSH: Medical History Psychiatric care Atrial flutter Atrial fibrillation Methamphetamine abuse -UDS positive for amphetamines/THC Bipolar 1 disorder, manic, mild Depressive disorder, not elsewhere classified Adjustment disorder with mixed disturbance of emotions and conduct Alcohol use disorder -Has known history of alcohol abuse&DT Surgical History H/O hernia repair History of appendectomy Family History Other Alcoholism /alcohol abuse Social History Smoking and tobacco/nicotine status: never used tobacco/nicotine Quit status (tobacco/nicotine): has tried quititng Number of times tried to quit tobacco: 4 Second hand smoke exposure: Yes Alcohol intake: current Substance/Drug Use: current Current gender identity: Male Physical Exam Narrative: EXAM NARRATIVE: General: Alert, no acute distress. Skin: warm and dry. Some discoloration of his fingertips but he has good oxygen saturations. No evidence of ischemia Head: Normocephalic Neck: Trachea midline Eye: Extraocular movements are intact. Ears, nose, mouth and throat: Oral mucosa moist Respiratory: Respirations are non-labored Musculoskeletal: Normal ROM Neurological: Alert and oriented, No focal neurological deficit observed. Psychiatric: Cooperative, appropriate mood & affect. Course Vital Signs: Vital signs: Vital Signs Temperature 98.4 F 09/04/24 03:22 Pulse Rate 79 09/04/24 03:22 Respiratory Rate 18 09/04/24 03:22 Blood Pressure 127/78 09/04/24 03:22 Pulse Oximetry 98 09/04/24 03:22 MDM - Extremity (Nontraumatic) Medical Decision Making Assessment and plan: Raynaud's - Discharged home - Discussed plan with patient. Answered any questions. - Evaluation and treatment of this problem were appropriate in the emergency setting. No radiology studies performed this visit Discharge Plan Discharge Patient Disposition: Home Clinical Impression: Raynauds disease Qualifiers: Raynaud?s-associated gangrene presence: without gangrene Qualified Code(s): I73.00 - Raynaud's syndrome without gangrene Condition: Stable Prescriptions: No Action albuterol sulfate [Ventolin HFA] 90 mcg/actuation HFA aerosol inhaler 2 puff inhalation Q4H PRN (Reason: shortness of breath or wheezing) Qty: 8.5 0RF fluticasone propionate 50 mcg/actuation spray,suspension 2 spray INTRANASAL DAILY Qty: 16 0RF paroxetine HCl 20 mg tablet 20 mg PO DAILY lurasidone 40 mg tablet 40 mg PO QPM quetiapine 300 mg tablet 300 mg PO BEDTIME propranolol 10 mg tablet 10 mg PO BID tamsulosin 0.4 mg capsule 0.4 mg PO DAILY trazodone 150 mg tablet 150 mg PO BEDTIME bacitracin [Bacitraycin Plus] 500 unit/gram ointment 1 applic topical BID Qty: 14 0RF nifedipine [Procardia XL] 30 mg tablet extended release 24hr 30 mg PO DAILY Qty: 30 1RF Discharge Orders: Discharge ED (Routine); Ordered 09/04/24 Ordered By: Dorina George Referrals: Chayito Cali MD [Primary Care Provider] - Discharge Diet: Usual diet Discharge Activity: Increase activity as tolerated Patient Instructions: Opioid Safety, Pain Management Activity Restrictions/Additional Instructions: Please fill the prescription that you were given a few days ago. Thank you for choosing [facility] for your healthcare needs today. Please realize this is an emergency room and that we are providing you with a medical screening exam and this may not be complete and all inclusive of all the testing and or work up that you may need to determine your ailment or severity of your illness. You have been screened and evaluated and felt safe for discharge. Health conditions do change or evolve sometimes and as such it is important that you follow up with your Primary Doctor to be re checked, 3-5 days is a general good time frame for follow up. You are always welcome to return to the ED for re assessment if your symptoms are worsening or you have new concerns Print Language: Amharic Coding Level of Care Code ED University Counselor for Camila Alvares
--- NOTE | 2024-09-04 03:50 | PC.NURSE ---
PT PRESENTED TO THE ER FOR SAME CC FOR A SECOND TIME TONIGHT, PT HAD ONLY BELONGINGS THAT WERE ON HIS PERSON, PT HAD NO OTHER BAGS.
[2024-09-04 03:54] VITALS: BP 104/65; PULSE 72; RESP 14; O2SAT 92
== END 2024-09-04 03:40 | disposition home or self-care (01) ==
PROVIDERS: Emergency Provider Emergency Medicine; PCP Family Medicine
DX: I73.00 Raynaud's syndrome without gangrene (principal)
CPT/HCPCS: 99281

== ENCOUNTER 2024-09-05 00:26 | Emergency (ER) | payer MEDICAID, SELFPAY ==
[2023-12-27 15:20] VITALS: BP 128/98; BMI 17.0
[2024-09-05 00:31] VITALS: BP 122/81; PULSE 102; RESP 14; TEMP 36.2; O2SAT 99
--- NOTE | 2024-09-05 01:45 | W.ED.GENADLT ---
HPI - General Adult General: Chief complaint: General Medical Stated complaint: hands feet, legs swollen red painful Time Seen by Provider: 09/05/24 01:20 History of Present Illness: Patient presents to the ER with complaining of increased redness pain swelling to bilateral hands and feet. Patient does have a history of nausea without a cold this evening. Patient is been seen multiple times for this and he has not filled his prescription for the nifedipine from one of his previous ER visits. Upon questioning this patient got agitated and started saying we can fuck off and fuck you and fuck this and fuck that etc. Related Data Home Medications ?Medication ?Instructions ?Recorded ?Confirmed lurasidone 40 mg tablet 40 mg PO QPM 09/22/23 08/19/24 paroxetine HCl 20 mg tablet 20 mg PO DAILY 09/22/23 08/19/24 propranolol 10 mg tablet 10 mg PO BID 08/19/24 08/19/24 quetiapine 300 mg tablet 300 mg PO BEDTIME 08/19/24 08/19/24 tamsulosin 0.4 mg capsule 0.4 mg PO DAILY 08/19/24 08/19/24 trazodone 150 mg tablet 150 mg PO BEDTIME 08/19/24 08/19/24 Previous Rx's ?Medication ?Instructions ?Recorded albuterol sulfate 90 mcg/actuation 2 puff inhalation Q4H PRN 06/25/24 aerosol inhaler (Ventolin HFA) shortness of breath or wheezing #8.5 grams fluticasone propionate 50 2 spray intranasal DAILY #16 grams 08/16/24 mcg/actuation nasal spray,suspension bacitracin 500 unit/gram topical 1 applic topical BID #14 grams 08/19/24 ointment (Bacitraycin Plus) nifedipine 30 mg tablet,extended 30 mg PO DAILY #30 tabs 08/29/24 release 24 hr (Procardia XL) Allergies Allergy/AdvReac Type Severity Reaction Status Date / Time No Known Allergies Allergy Verified 09/05/24 00:33 Review of Systems General: Reports: 10 or more systems reviewed and unremarkable except in HPI and below PFSH ED PFSH: Medical History Psychiatric care Atrial flutter Atrial fibrillation Methamphetamine abuse -UDS positive for amphetamines/THC Bipolar 1 disorder, manic, mild Depressive disorder, not elsewhere classified Adjustment disorder with mixed disturbance of emotions and conduct Alcohol use disorder -Has known history of alcohol abuse&DT Surgical History H/O hernia repair History of appendectomy Family History Other Alcoholism /alcohol abuse Social History Smoking and tobacco/nicotine status: never used tobacco/nicotine Quit status (tobacco/nicotine): has tried quititng Number of times tried to quit tobacco: 4 Second hand smoke exposure: Yes Alcohol intake: current Substance/Drug Use: current Current gender identity: Male Physical Exam Const: COMMON NORMALS: no acute distress, average body habitus, patient oriented x3, no limitations, alert and well nourished HENMT: COMMON NORMALS: normocephalic, atraumatic, hearing grossly normal bilaterally, external ears normal, Normal external nose present and moist oral mucous membranes HEAD & SCALP: normocephalic and atraumatic NOSE: Normal external nose present EXTERNAL EAR: Yes external ears normal Eye: COMMON NORMALS: Equal, round and reactive pupils present, EOMs intact bilaterally, conjunctivae normal and no scleral icterus CONJUNCTIVA: Yes conjunctivae normal PUPIL: Yes Equal, round and reactive pupils present Neck/C-Spine: COMMON NORMALS: no JVD Chest: COMMONS NORMALS: normal inspection of the chest Resp: COMMON NORMALS: normal respiratory effort, No retractions, No use of accessory muscles and clear to auscultation bilaterally AUSCULTATION: clear to auscultation bilaterally Cardio: COMMON NORMALS: no JVD, regular rate, regular rhythm, S1 normal heart sound present, S2 normal heart sound present, No gallops present (Cardio), No clicks present (Cardio), No murmurs present (Cardio) and No rub (Cardio) RATE: regular rate RHYTHM: regular rhythm HEART SOUNDS: S1 normal heart sound present and S2 normal heart sound present GI: COMMON NORMALS: Normal to inspection, nondistended, normoactive bowel sounds present, Soft to palpation, non-tender, No hepatosplenomegaly present and no masses PALPATION: Yes Soft to palpation and Yes No hepatosplenomegaly present Neuro: COMMON NORMALS: patient oriented x3 SENSORIUM/ORIENTATION: Yes alert Course Vital Signs: Vital signs: Vital Signs Temperature 97.2 F L 09/05/24 00:31 Pulse Rate 102 H 09/05/24 00:31 Respiratory Rate 14 09/05/24 00:31 Blood Pressure 122/81 09/05/24 00:31 Pulse Oximetry 99 09/05/24 00:31 Oxygen Delivery Me thod Room Air 09/05/24 00:31 MDM - General Adult Medical Decision Making Patient has not filled his last prescription for nifedipine which would help his Raynaud's. When patient was told he would be discharged he started getting mildly and belligerent and yelling profanities security was called patient was discharged. Medical Records I reviewed the patient's medical records. Lab Data I reviewed the patient's lab results. No radiology studies performed this visit Discharge Plan Discharge Patient Disposition: Home Clinical Impression: Noncompliance with medications Raynauds disease Qualifiers: Raynaud?s-associated gangrene presence: without gangrene Qualified Code(s): I73.00 - Raynaud's syndrome without gangrene Condition: Stable Prescriptions: No Action albuterol sulfate [Ventolin HFA] 90 mcg/actuation HFA aerosol inhaler 2 puff inhalation Q4H PRN (Reason: shortness of breath or wheezing) Qty: 8.5 0RF fluticasone propionate 50 mcg/actuation spray,suspension 2 spray INTRANASAL DAILY Qty: 16 0RF paroxetine HCl 20 mg tablet 20 mg PO DAILY lurasidone 40 mg tablet 40 mg PO QPM quetiapine 300 mg tablet 300 mg PO BEDTIME propranolol 10 mg tablet 10 mg PO BID tamsulosin 0.4 mg capsule 0.4 mg PO DAILY trazodone 150 mg tablet 150 mg PO BEDTIME bacitracin [Bacitraycin Plus] 500 unit/gram ointment 1 applic topical BID Qty: 14 0RF nifedipine [Procardia XL] 30 mg tablet extended release 24hr 30 mg PO DAILY Qty: 30 1RF Discharge Orders: Discharge ED (Routine); Ordered 09/05/24 Ordered By: Trino Baptiste Referrals: Chayito Cali MD [Primary Care Provider] - 1 week Patient Instructions: Raynaud Disease (ED) Activity Restrictions/Additional Instructions: Please go to the pharmacy get your nifedipine filled as this will help your Raynaud's disease otherwise follow-up with your family practitioner for your chronic condition. Print Language: Urdu Coding Level of Care Code ED Attendant [employer] for Camila Alvares
== END 2024-09-05 01:58 | disposition home or self-care (01) ==
PROVIDERS: Emergency Provider Emergency Medicine; PCP Family Medicine
DX: I73.00 Raynaud's syndrome without gangrene (principal); Z91.148 Patient's other noncompliance with medication regimen for other reason
CPT/HCPCS: 99281

== ENCOUNTER 2024-09-06 00:42 | Emergency (ER) | payer MEDICAID, SELFPAY ==
[2023-12-27 15:20] VITALS: BP 128/98; BMI 17.0
[2024-09-06 01:02] VITALS: BP 132/60; PULSE 93; RESP 20; TEMP 37.1; O2SAT 99; BMI 21.2
--- NOTE | 2024-09-06 05:01 | W.ED.URI ---
HPI - URI/Sore Throat General: Chief Complaint: Upper Respiratory Infection Stated Complaint: throat is sore, left mouth/tooth pain Time Seen by Provider: 09/06/24 01:30 History of Present Illness: 48-year-old male well-known to the emergency department. This is his third visit in 3 to days. He presents with multiple complaints including tooth and jaw pain, sore throat, cough, swollen hands. No fever. Related Data Home Medications ?Medication ?Instructions ?Recorded ?Confirmed lurasidone 40 mg tablet 40 mg PO QPM 09/22/23 08/19/24 paroxetine HCl 20 mg tablet 20 mg PO DAILY 09/22/23 08/19/24 propranolol 10 mg tablet 10 mg PO BID 08/19/24 08/19/24 quetiapine 300 mg tablet 300 mg PO BEDTIME 08/19/24 08/19/24 tamsulosin 0.4 mg capsule 0.4 mg PO DAILY 08/19/24 08/19/24 trazodone 150 mg tablet 150 mg PO BEDTIME 08/19/24 08/19/24 Previous Rx's ?Medication ?Instructions ?Recorded albuterol sulfate 90 mcg/actuation 2 puff inhalation Q4H PRN 06/25/24 aerosol inhaler (Ventolin HFA) shortness of breath or wheezing #8.5 grams fluticasone propionate 50 2 spray intranasal DAILY #16 grams 08/16/24 mcg/actuation nasal spray,suspension bacitracin 500 unit/gram topical 1 applic topical BID #14 grams 08/19/24 ointment (Bacitraycin Plus) nifedipine 30 mg tablet,extended 30 mg PO DAILY #30 tabs 08/29/24 release 24 hr (Procardia XL) Allergies Allergy/AdvReac Type Severity Reaction Status Date / Time No Known Allergies Allergy Verified 09/05/24 00:33 [facility] ED [facility]: Medical History Psychiatric care Atrial flutter Atrial fibrillation Methamphetamine abuse -UDS positive for amphetamines/THC Bipolar 1 disorder, manic, mild Depressive disorder, not elsewhere classified Adjustment disorder with mixed disturbance of emotions and conduct Alcohol use disorder -Has known history of alcohol abuse&DT Surgical History H/O hernia repair History of appendectomy Family History Other Alcoholism /alcohol abuse Social History Smoking and tobacco/nicotine status: never used tobacco/nicotine Quit status (tobacco/nicotine): has tried quititng Number of times tried to quit tobacco: 4 Second hand smoke exposure: Yes Alcohol intake: current Substance/Drug Use: current Current gender identity: Male Physical Exam HENMT: COMMON NORMALS: normocephalic, TM's normal bilaterally and Normal external nose present HEAD & SCALP: normocephalic FACE & SINUS: normal facial exam and face symmetric NOSE: Normal external nose present and Normal nares present TYMPANIC MEMBRANE: TM's normal bilaterally THROAT: abnormal tonsil bilateral erythema; no exudates Chest: CHEST: Yes Symmetrical chest wall rise Resp: COMMON NORMALS: clear to auscultation bilaterally EFFORT & INSPECTION: Yes symmetric chest movement AUSCULTATION: clear to auscultation bilaterally Cardio: COMMON NORMALS: regular rate and regular rhythm RATE: regular rate RHYTHM: regular rhythm Course Vital Signs: Vital signs: Vital Signs Temperature 98.8 F 09/06/24 01:02 Pulse Rate 93 09/06/24 01:02 Respiratory Rate 20 H 09/06/24 01:02 Blood Pressure 132/60 09/06/24 01:02 Pulse Oximetry 99 09/06/24 01:02 MDM - URI/Sore Throat Medical Decision Making The patient was sleeping, and had to be awoken for my interview and exam. Patient is given a single dose of dexamethasone here for pharyngeal redness. He will be discharged. His vitals are stable. No radiology studies performed this visit Discharge Plan Discharge Patient Disposition: Home Clinical Impression: Pharyngitis Condition: Stable Prescriptions: No Action albuterol sulfate [Ventolin HFA] 90 mcg/actuation HFA aerosol inhaler 2 puff inhalation Q4H PRN (Reason: shortness of breath or wheezing) Qty: 8.5 0RF fluticasone propionate 50 mcg/actuation spray,suspension 2 spray INTRANASAL DAILY Qty: 16 0RF paroxetine HCl 20 mg tablet 20 mg PO DAILY lurasidone 40 mg tablet 40 mg PO QPM quetiapine 300 mg tablet 300 mg PO BEDTIME propranolol 10 mg tablet 10 mg PO BID tamsulosin 0.4 mg capsule 0.4 mg PO DAILY trazodone 150 mg tablet 150 mg PO BEDTIME bacitracin [Bacitraycin Plus] 500 unit/gram ointment 1 applic topical BID Qty: 14 0RF nifedipine [Procardia XL] 30 mg tablet extended release 24hr 30 mg PO DAILY Qty: 30 1RF Discharge Orders: Discharge ED (Routine); Ordered 09/06/24 Ordered By: Pete Mccurdy Referrals: Chayito Cali MD [Primary Care Provider] - 4-7 days Patient Instructions: Pharyngitis (ED), Opioid Safety, Pain Management Print Language: Costa Rican Coding Level of Care Code ED Histopath Tech for Camila Alvares
== END 2024-09-06 02:32 | disposition home or self-care (01) ==
PROVIDERS: Emergency Provider Emergency Medicine; PCP Family Medicine
DX: J02.9 Acute pharyngitis, unspecified (principal)
CPT/HCPCS: 99281

== ENCOUNTER 2024-09-06 23:11 | Emergency (ER) | payer MEDICAID, SELFPAY ==
[2023-12-27 15:20] VITALS: BP 128/98; BMI 17.0
--- NOTE | 2024-09-06 23:16 | ECG_ITS ---
[facility] [place] [facility] Date: 2024-09-06 Pat Name: Ludin Gordon Department: Room: Gender: Male Pharmacist Manager: : 1975 Requested By: Pete Galdamez Order Number: [id number] Jaime MD: Leon Mancuso M.D. Measurements Intervals [place] Rate: 93 P: 59 NE: 146 QRS: 69 QRSD: 85 T: 64 QT: 346 QTc: 431 Interpretive Statements SINUS RHYTHM Compared to ECG 04/18/2024 20:45:28 ST (T wave) deviation no longer present Electronically Signed On 09-07-2024 22:25:51 CDT by Leon Mancuso M.D. [email or web address] [id number]
[2024-09-06 23:22] VITALS: BP 123/77; PULSE 94; RESP 16; TEMP 37.6; O2SAT 96
[2024-09-06 23:24] VITALS: BMI 21.2
--- NOTE | 2024-09-06 23:35 | W.ED.CHESTPA ---
HPI - Chest Pain General: Chief Complaint: Chest Pain Stated Complaint: L leg Pain knot under his knee,CP Time Seen by Provider: 09/06/24 23:16 History of Present Illness: 48-year-old male patient well-known to the emergency department service. He presents with left-sided posterior leg pain near his knee. He states that there is a prominent vein in this area. He is also complaining of bilateral leg swelling as well as some left-sided chest discomfort, worse with taking a deep breath. He has a cough. No fever. Related Data Home Medications ?Medication ?Instructions ?Recorded ?Confirmed lurasidone 40 mg tablet 40 mg PO QPM 09/22/23 08/19/24 paroxetine HCl 20 mg tablet 20 mg PO DAILY 09/22/23 08/19/24 propranolol 10 mg tablet 10 mg PO BID 08/19/24 08/19/24 quetiapine 300 mg tablet 300 mg PO BEDTIME 08/19/24 08/19/24 tamsulosin 0.4 mg capsule 0.4 mg PO DAILY 08/19/24 08/19/24 trazodone 150 mg tablet 150 mg PO BEDTIME 08/19/24 08/19/24 Previous Rx's ?Medication ?Instructions ?Recorded albuterol sulfate 90 mcg/actuation 2 puff inhalation Q4H PRN 06/25/24 aerosol inhaler (Ventolin HFA) shortness of breath or wheezing #8.5 grams fluticasone propionate 50 2 spray intranasal DAILY #16 grams 08/16/24 mcg/actuation nasal spray,suspension bacitracin 500 unit/gram topical 1 applic topical BID #14 grams 08/19/24 ointment (Bacitraycin Plus) nifedipine 30 mg tablet,extended 30 mg PO DAILY #30 tabs 08/29/24 release 24 hr (Procardia XL) lansoprazole 30 mg capsule,delayed 30 mg PO DAILY #30 caps 09/07/24 release (Prevacid) Allergies Allergy/AdvReac Type Severity Reaction Status Date / Time No Known Allergies Allergy Verified 09/05/24 00:33 [facility] ED PFSH: Medical History Psychiatric care Atrial flutter Atrial fibrillation Methamphetamine abuse -UDS positive for amphetamines/THC Bipolar 1 disorder, manic, mild Depressive disorder, not elsewhere classified Adjustment disorder with mixed disturbance of emotions and conduct Alcohol use disorder -Has known history of alcohol abuse&DT Surgical History H/O hernia repair History of appendectomy Family History Other Alcoholism /alcohol abuse Social History Smoking and tobacco/nicotine status: never used tobacco/nicotine Quit status (tobacco/nicotine): has tried quititng Number of times tried to quit tobacco: 4 Second hand smoke exposure: Yes Alcohol intake: current Substance/Drug Use: current Current gender identity: Male Physical Exam Const: COMMON NORMALS: no acute distress GENERAL APPEARANCE: cooperative; not ill appearing and not frail appearing HENMT: COMMON NORMALS: normocephalic, atraumatic and Normal external nose present HEAD & SCALP: normocephalic and atraumatic FACE & SINUS: normal facial exam and face symmetric NOSE: Normal external nose present Eye: COMMON NORMALS: Equal, round and reactive pupils present and EOMs intact bilaterally PUPIL: Yes Equal, round and reactive pupils present Neck/C-Spine: GENERAL: Yes trachea midline Chest: CHEST: Yes Symmetrical chest wall rise Resp: COMMON NORMALS: normal respiratory effort, No retractions, No use of accessory muscles and clear to auscultation bilaterally AUSCULTATION: clear to auscultation bilaterally Cardio: COMMON NORMALS: regular rate and regular rhythm RATE: regular rate RHYTHM: regular rhythm GI: COMMON NORMALS: Normal to inspection, nondistended, normoactive bowel sounds present Extremity: NARRATIVE EXTREMITY EXAM: Some tenderness to the medial hamstring in the left posterior knee. No masses. GENERAL: Yes edema (1+ bilateral) Neuro: JOSÉ MIGUEL COMA SCALE: document GCS findings [place] coma scale eye opening: Spontaneous José Miguel coma scale verbal response: Orientated José Miguel coma scale motor response: Obey commands José Miguel coma scale total score: 15 SENSORY EXAM: Yes extremities (intact) Psych: COMMON NORMALS: speech normal SPEECH: Yes normal speech Skin: COMMON NORMALS: no rashes or lesions noted GENERAL SKIN EXAM: no rashes or lesions noted Course Vital Signs: Vital signs: Vital Signs Temperature 99.7 F H 09/06/24 23:22 Pulse Rate 89 09/07/24 03:32 Respiratory Rate 18 09/07/24 02:00 Blood Pressure 103/56 09/07/24 03:32 Pulse Oximetry 96 09/07/24 03:32 Oxygen Delivery Me thod Room Air 09/06/24 23:22 MDM - Chest Pain Medical Decision Making Patient is nontachycardic, nonhypoxic. He has a temperature of 99.7. His EKG shows a normal sinus rhythm with no ST or T wave changes. CBC is not remarkable. BMP is normal. Troponin is 14. D-dimer is elevated. Chest x-ray is nonacute. CTA shows possible esophagitis with no embolism, infiltrate, mass, etc. DVT ultrasound on the left is negative. He will be discharged. Lab Data 09/07/24 00:31 09/07/24 00:31 Radiology Impressions Chest X-Ray 09/07/24 00:17 IMPRESSION: No acute findings. Chest CTA 09/07/24 01:08 IMPRESSION: Possible esophagitis. No embolism. Venous Duplex 09/07/24 01:08 IMPRESSION: No evidence of deep vein thrombosis. Laboratory Results WBC 7.31 10^3/uL (3.29-11.43) 09/07/24 00:31 RBC 3.37 10^6/uL (3.85-5.65) L 09/07/24 00:31 Hgb 11.90 g/dL (11.27-16.99) 09/07/24 00:31 Hct 37.0 % (37-53) 09/07/24 00:31 MCV 109.8 fl (82-101) H 09/07/24 00:31 MCH 35.3 pg (27-33) H 09/07/24 00:31 MCHC 32.2 g/dL (30-55) 09/07/24 00:31 RDW 14.0 % (12.1-15.1) 09/07/24 00:31 Plt Count 457 10^3/cmm (157-399) H 09/07/24 00:31 MPV 9.1 fL (7.4-10.4) 09/07/24 00:31 Neut % (Auto) 46.5 % 09/07/24 00:31 Lymph % (Auto) 41.0 % 09/07/24 00:31 King % (Auto) 11.5 % 09/07/24 00:31 Eos % (Auto) 0.5 % 09/07/24 00:31 Baso % (Auto) 0.4 % 09/07/24 00: Neut # (Auto) 3.39 10^3/uL (1.8-7.7) 09/07/24 00: Lymph # (Auto) 3.0 10^3/uL (0.8-4.8) 09/07/24 00: King # (Auto) 0.8 10^3/uL (0.2-0.9) 09/07/24 00: Eos # (Auto) 0.0 10^3/uL (0.0-0.8) 09/07/24 00: Baso # (Auto) 0.0 10^3/uL (0.0-0.1) 09/07/24 00: Nucleated RBC % (auto) 0 % 09/07/24 00: Nucleated RBCs # 0.0 /100WBC 09/07/24 00: D-Dimer 1.14 ug/mLFEU (0-0.59) H 09/07/24 00:31 Sodium 136 mmol/L (136-145) 09/07/24 00: Potassium 3.8 mmol/L (3.5-5.1) 09/07/24 00: Chloride 99 mmol/L (98-107) 09/07/24 00: Carbon Dioxide 26 mmol/L (22-29) 09/07/24 00: Anion Gap 14.8 (5-19) 09/07/24 00: BUN 12 mg/dL (6-20) 09/07/24 00: Creatinine 0.7 mg/dL (0.7-1.2) 09/07/24 00: GFR Calculation 120.9 mL/min (90-130) 09/07/24 00: Glucose 92 mg/dL (65-115) 09/07/24 00: Calculated Osmolality 281 mOsm/kg (285-295) L 09/07/24 00: Calcium 8.9 mg/dL (8.5-10.5) 09/07/24 00: Total Bilirubin 0.2 mg/dL (0.15-1.2) 09/07/24 00: AST 20 U/L (0-40) 09/07/24 00:31 ALT 17 U/L (0-41) 09/07/24 00:31 Alkaline Phosphatase 78 U/L (40-130) 09/07/24 00:31 Troponin T Baseline 14 ng/L (0-15) 09/07/24 00:31 Total Protein 6.9 g/dL (6.6-8.7) 09/07/24 00:31 Albumin 4.0 g/dL (3.5-5.2) 09/07/24 00:31 Globulin 2.9 g/dL (1.3-4.6) 09/07/24 00:31 All radiology interpretation(s) finalized by discharge Discharge Plan Discharge Patient Disposition: Home Clinical Impression: Chest pain, Esophagitis Condition: Stable Prescriptions: New lansoprazole [Prevacid] 30 mg capsule,delayed release(DR/EC) 30 mg PO DAILY Qty: 30 0RF No Action albuterol sulfate [Ventolin HFA] 90 mcg/actuation HFA aerosol inhaler 2 puff inhalation Q4H PRN (Reason: shortness of breath or wheezing) Qty: 8.5 0RF fluticasone propionate 50 mcg/actuation spray,suspension 2 spray INTRANASAL DAILY Qty: 16 0RF paroxetine HCl 20 mg tablet 20 mg PO DAILY lurasidone 40 mg tablet 40 mg PO QPM quetiapine 300 mg tablet 300 mg PO BEDTIME propranolol 10 mg tablet 10 mg PO BID tamsulosin 0.4 mg capsule 0.4 mg PO DAILY trazodone 150 mg tablet 150 mg PO BEDTIME bacitracin [Bacitraycin Plus] 500 unit/gram ointment 1 applic topical BID Qty: 14 0RF nifedipine [Procardia XL] 30 mg tablet extended release 24hr 30 mg PO DAILY Qty: 30 1RF Discharge Orders: Discharge ED (Routine); Ordered 09/07/24 Ordered By: Pete Mccurdy Referrals: Chayito Cali MD [Primary Care Provider] - 4-7 days Patient Instructions: Chest Pain (ED), Esophagitis (ED), Opioid Safety, Pain Management Activity Restrictions/Additional Instructions: Medication as directed. Print Language: [place] Citizen Coding Level of Care Code ED Banjo Repairer for Camila Alvares
[2024-09-07] VITALS: BP 131/78; PULSE 90; RESP 16; O2SAT 97
--- NOTE | 2024-09-07 00:17 | XRR_ITS ---
PROCEDURE INFORMATION: Exam: XR Chest Exam date and time: 09/07/2024 12:28 AM Age: 48 years old Clinical indication: Chest pressure; C/O chest pain; Additional info: Cp TECHNIQUE: Imaging protocol: Radiologic exam of the chest. Views: 1 view. COMPARISON: CR XR chest 1V portable [id number] 08/19/2024 9:44 AM FINDINGS: Lungs: Unremarkable. No consolidation. Pleural spaces: Unremarkable. No pleural effusion. No pneumothorax. Heart/Mediastinum: Unremarkable. No cardiomegaly. Bones/joints: Unremarkable. XR/XR chest 1V portable [id number] IMPRESSION: No acute findings.
[2024-09-07 00:58] LABS: Troponin(5th) Baseline 14 ng/L (0-15)
[2024-09-07 01:01] LABS: D Dimer 1.14 ug/mLFEU (0-0.59)
--- NOTE | 2024-09-07 01:08 | CTR_ITS ---
PROCEDURE INFORMATION: Exam: CTA Chest With Contrast Exam date and time: 09/07/2024 1:38 AM Age: 48 years old Clinical indication: Pain and abnormal findings; Abnormal diagnostic tests; Elevated d-dimer; Chest pressure; C/O chest pain. Dimer of 1.14. ; Additional info: Chest pain, elevated d dimer TECHNIQUE: Imaging protocol: Computed tomographic angiography of the chest with contrast. Exam focused on the arteries. 3D rendering (Not supervised by radiologist): MIP and/or 3D reconstructed images were created by the technologist. Radiation optimization: All CT scans at this facility use at least one of these dose optimization techniques: automated exposure control; mA and/or kV adjustment per patient size (includes targeted exams where dose is matched to clinical indication); or iterative reconstruction. Contrast material: OMNI 350; Contrast volume: 100 ml; Contrast route: INTRAVENOUS (IV); COMPARISON: CT chest w con* [id number] 09/14/2021 1:28 AM RADIATION DOSE METRICS: Total DLP (mGy-cm): 263.56 FINDINGS: Pulmonary arteries: Normal. No pulmonary emboli. Aorta: Unremarkable. No aortic aneurysm. No aortic dissection. Lungs: Unremarkable. No consolidation. No masses. Pleural spaces: Unremarkable. No pneumothorax. No pleural effusion. Heart: Unremarkable. No cardiomegaly. No pericardial effusion. Lymph nodes: Unremarkable. No enlarged lymph nodes. Stomach: Thickening of the stomach and esophagus. Bones/joints: Unremarkable. No acute fracture. Soft tissues: Unremarkable. CT/CT angio chest PE protcl [id number] IMPRESSION: Possible esophagitis. No embolism.
--- NOTE | 2024-09-07 01:08 | USR_ITS ---
PROCEDURE INFORMATION: Exam: US Duplex Left Lower Extremity Veins, Limited Exam date and time: 09/07/2024 3:02 AM Age: 48 years old Clinical indication: Pain; Leg, lower; Left; Additional info: Lle pain, swelling elevated d dimer TECHNIQUE: Imaging protocol: Real-time duplex ultrasound of the left extremity with 2-D hale scale, color Doppler flow and spectral waveform analysis including responses to compression and other maneuvers (when performed) with image documentation. Limited exam focused on the left lower extremity veins. COMPARISON: CR XR knee LT 3V* [id number] 01/14/2024 1:39 PM FINDINGS: Left deep veins: Unremarkable. The common femoral, femoral, proximal profunda femoral and popliteal veins are patent without thrombus. Normal Doppler waveforms. Normal compressibility and/or augmentation response. Superficial veins: Greater saphenous vein at the saphenofemoral junction is patent without thrombus. Soft tissues: Unremarkable. US/[place] [id number] IMPRESSION: No evidence of deep vein thrombosis.
[2024-09-07 01:17] LABS: Basophils % 0.4 %; Eosinophils % 0.5 %; Mean Corpuscular HGB Conc 32.2 g/dL (30-55); Mean Corpuscular Hemoglobin 35.3 pg (27-33); Mean Corpuscular Volume 109.8 fl (82-101); Mean Platelet Volume 9.1 fL (7.4-10.4); Monocytes # 0.8 10^3/uL (0.2-0.9); Monocytes % 11.5 %; Neutrophils # 3.39 10^3/uL (1.8-7.7); Neutrophils % 46.5 %; Nucleated Red Blood Cells % 0 %; Platelet Count 457 10^3/cmm (157-399); Red Blood Count 3.37 10^6/uL (3.85-5.65); White Blood Count 7.31 10^3/uL (3.29-11.43)
[2024-09-07 01:31] LABS: Alanine Aminotransferase 17 U/L (0-41); Alkaline Phosphatase 78 U/L (40-130); Anion Gap 14.8 (5-19); Aspartate Amino Transferase 20 U/L (0-40); Blood Urea Nitrogen 12 mg/dL (6-20); Calcium 8.9 mg/dL (8.5-10.5); Carbon Dioxide 26 mmol/L (22-29); Chloride 99 mmol/L (98-107); Creatinine Clr Calc Pharmacy 122.5998; Globulin 2.9 g/dL (1.3-4.6); Glomerular Filtration Rate 120.9 mL/min (90-130); Glucose 92 mg/dL (65-115); Osmolality Calculated 281 mOsm/kg (285-295); Potassium 3.8 mmol/L (3.5-5.1); Sodium 136 mmol/L (136-145); Total Bilirubin 0.2 mg/dL (0.15-1.2); Total Protein 6.9 g/dL (6.6-8.7)
[2024-09-07] MEDS: iohexol 350 mg/mL 500 mL Btl (per mL) IV (01:47)
[2024-09-07 02:00] VITALS: BP 124/79; PULSE 87; RESP 18; O2SAT 96
[2024-09-07] MEDS: haloperidol inj 5 mg/mL INJ 1 mL IVP (02:59)
[2024-09-07] MEDS: ketorolac 30 mg/mL INJ IVP (03:00)
[2024-09-07 03:32] VITALS: BP 103/56; PULSE 89; O2SAT 96
== END 2024-09-07 03:33 | disposition home or self-care (01) ==
PROVIDERS: Emergency Provider Emergency Medicine; PCP Family Medicine
DX: R07.9 Chest pain, unspecified (principal); K20.90 Esophagitis, unspecified without bleeding; M79.605 Pain in left leg
CPT/HCPCS: 36415; 71045; 71275; 80053; 84484; 85025; 85378; 93005; 93971; 96374; 96375; 99285; J1630; J1885

== ENCOUNTER 2024-11-29 21:44 | Emergency (ER) | payer MEDICAID, SELFPAY ==
--- OUTSIDE RECORDS SUMMARY | 2009-12-20 05:37 | XMS_ITS | Continuity of Care Document ---
Author Organization [facility] Address [address] [id number] [address] Phone Care Team Providers Care Transformer Mechanic Name Role Phone Unavailable Unavailable Unavailable Allergies, Adverse Reactions, Alerts Substance Reaction Status Criticality tramadol Active No Information CODEINE PHOSPHATE Rash Active No Informa tion acetaminophen Rash Active No Information CODEINE PHOSPHATE Nausea Active No Informa tion acetaminophen Nausea Active No Information CODEINE PHOSPHATE Light-Headedness Active No Inf ormation acetaminophen Light-Headedness Active No Informa tion acetaminophen Rash Active No Information TRAMADOL HCL Rash Active No Information acetaminophen Nausea Active No Information TRAMADOL HCL Nausea Active No Information acetaminophen Light-Headedness Active No Informa tion TRAMADOL HCL Light-Headedness Active No Informat ion TRAMADOL HCL Rash Active No Information TRAMADOL HCL Nausea Active No Information TRAMADOL HCL Light-Headedness Active No Informat ion codeine Active No Information Medications Medication Instructions Dosage Effective Dates (start - stop) Status Comments Mucinex DM 30 mg-600 mg 12 hr Tab take 1 tablet by ORAL route every 12 hours as needed 1.00 tablet - Active Celexa 20 mg Tab take 1 tablet (20MG) by ORAL route every day 20 MG - Active hydrochlorothiazide 12.5 mg Cap take 2 capsule (25MG) by ORAL route every day 25 MG - Active Procedures Procedure Date OFFICE/OUTPATIENT VISIT, EST Office/Outpatient Visit, Est EST-EXP PROB FOC/LOW COMPLEXITY 009 X-RAY CHEST - 2 VIEWS (FRONT & LAT) VITAMIN B-12 $20 ([id number]) URINALYSIS NONAUTO W/O SCOPE $5 (in-hous e) Estab Outpatient Detailed H&P - Moderate Complexity Decision INJ VIT B-12 CYNOCOBLMN TO 1000 MCG TDAP VACCINE >7 IM LIPID PANEL $20 ([id number]) DRUG SCREEN x7 BLOOD $165 ([id number]) COMPREHEN METABOLIC PANEL $15 ([id number]) N COMPLETE CBC W/AUTO DIFF WBC $10 ([id number] ) Office/Outpatient Visit, New Advance Directives Directive Yes / No Effective Date File Name Resuscitation Not Answered N/A N/A Life Support Not Answered N/A N/A Intubation Not Answered N/A N/A Antibiotics Not Answered N/A N/A IV Fluid Support Not Answered N/A N/A Tube Feed Not Answered N/A N/A Other Directive N/A N/A WARNING:The information contained in this section is historical and is provided for information only and does not constitute a legal document or any assurance that the information is still accurate. Please verify the information with the hayden of the legal document before using it for clinical purposes. Encounters Encounter Description Practice Location Reason(s) For Visit Diagnoses Date Provider Providers Copied on Encounter [facility], [id number], [id number], [place] tel:[phone] Family Medicine F1 No Information 0 No Information OFFICE/OUTPAT IENT VISIT, [facility], [id number], [id number], [place] tel:[phone] Family Medicine F1 sinusitis (chief complaint) bronchitis (chief complaint) Tobacco Abuse, History ofBronchitis, AcuteGanglion of tendon sheathTobacco Abuse, History ofBronchitis, Acute 0 No Information Office/Outpat ient Visit, [facility], [id number], [id number], [place] tel:[phone] Family Medicine F1 No Information 9 No Information EST-EXP PROB FOC/LOW COMPLEXITY [facility], [id number] [facility], [place], [place], [id number], [place] tel:[phone] Family Medicine F1 No Information 9 No Information Estab Outpatient Detailed H&P - Moderate Complexity Decision [facility], [id number] [place], [place], [id number], [place] tel:[phone] Family Medicine F1 No Information 9 No Information Office/Outpat ient Visit, [facility], [id number] [place], [place], [id number], [place] tel:[phone] Family Medicine F1 No Information 9 No Information Family History Family Member Type Diagnosis Age At Onset No Information Immunizations Vaccine Date Status Comments TDAP VACCINE >7 IM administered Source: S ource Unspecified Payers Payer name Insurance type Covered constitution party ID Dmitry buckley(tyrone) Brenda [place] Medicaid [id number] Social History Type Description Quantity Date Captured Comments Alcohol Use Details Caffeine Use Details energy drinks 6 pack per day 010 Tobacco Use Status Smoking Status No Information Sex Male Chief Complaint And Reason For Visit No Information Reason For Referral Reason For Referral No Information History Of Present Illness Encounter Date Complaint History Of Prese nt Illness No Information Functional Status Date Functional Assessmen t No Information Instructions Date Instruction Additional Infor mation No Information Assessments Type Assessment Date No Information Patient Care Teams Name Effective Dates (start - stop) Status Members No Information
[2023-12-27 15:20] VITALS: BP 128/98; BMI 17.0
[2024-11-29 21:48] VITALS: BP 127/85; PULSE 78; RESP 16; TEMP 36.7; O2SAT 98; BMI 19.8
--- NOTE | 2024-11-29 21:55 | XRR_ITS ---
PROCEDURE INFORMATION: Exam: XR Abdomen Exam date and time: 11/29/2024 10:08 PM Age: 49 years old Clinical indication: Abdominal pain; Generalized; Prior surgery; Surgery date: 6+ months; Surgery type: Appy; C/O diffuse abd pain; Additional info: Abd pain, upright and flat TECHNIQUE: Imaging protocol: Radiologic exam of the abdomen. Views: 2 Views. Upright and supine views. COMPARISON: CT angio chest PE protcl [id number] 09/07/2024 1:38 AM FINDINGS: Gastrointestinal tract: Moderate amount of retained stool in the colon from constipation. Nonspecific and nonobstructive bowel gas pattern. Intraperitoneal space: Normal. No free air. Bones/joints: Unremarkable for age. XR/XR abdomen min 2V [id number] IMPRESSION: As above.
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
--- OUTSIDE RECORDS SUMMARY | 2024-11-29 22:01 | XMS_ITS | Encounter Summary ---
Author Organization [facility] Address [address] [place] [address] Care Team Providers Care Boss Dyer Name Role Phone Fidelina Cali MD Primary Care Provider [phone] Encounter Details Date Type Department Care Team (Late st Contact Info) Description 11/24/2024 External Device Data [facility] ABSTRACTION Provider, Abstract NO ADDRESS ON FILE Social History Tobacco Use Types Packs/Day Years Used Date Smoking Tobacco: Every Day Cigarettes Smokeless Tobacco: Former Alcohol Use Standard Drinks/Week Comments Not Currently 0 (1 standard drink = 0.6 oz pur e alcohol) Feeling Safe Answer Date Recorded Are you in a relationship wi th someone who hurts you emotionally and/or physically? 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 Author Patient Stated General Yes Leonora Valdes Note: 07/03/2022 Today's SMART Goal: Patient will contact Home State Medicaid to discuss coverage for medication Within the next week. documented as of this encounter Visit Diagnoses Not on filedocumented in this encounter Additional Health Concerns Assessment Noted Time PHQ-9 Depression Total Score: 6 06/08/19 23 12:17 PM SIZE CUTTER documented as of this encounter Care Teams Boss Dyer Relationship Specialty Start Date End Date Fidelina Cali MD [address] [facility] [address] [place] [id number] PCP - General Family Practice 04/20/22 documented as of this encounter
[2024-11-29 22:10] VITALS: BP 127/85; PULSE 74; O2SAT 99
[2024-11-29 22:15] LABS: Basophils % 0.4 %; Eosinophils # 0.1 10^3/uL (0.0-0.8); Eosinophils % 2.9 %; Hematocrit 38.6 % (37-53); Lymphocytes # 1.7 10^3/uL (0.8-4.8); Lymphocytes % 37.1 %; Mean Corpuscular HGB Conc 33.7 g/dL (30-55); Mean Corpuscular Hemoglobin 34.4 pg (27-33); Mean Corpuscular Volume 102.1 fl (82-101); Mean Platelet Volume 10.1 fL (7.4-10.4); Monocytes # 0.5 10^3/uL (0.2-0.9); Monocytes % 11.9 %; Neutrophils # 2.13 10^3/uL (1.8-7.7); Neutrophils % 47.7 %; Nucleated Red Blood Cells % 0 %; Platelet Count 198 10^3/cmm (157-399); Red Blood Count 3.78 10^6/uL (3.85-5.65); Red Cell Distribution Width 11.9 % (12.1-15.1); White Blood Count 4.47 10^3/uL (3.29-11.43)
[2024-11-29 22:30] VITALS: PULSE 89; O2SAT 99
[2024-11-29 22:33] LABS: Alanine Aminotransferase 29 U/L (0-41); Albumin Level 3.9 g/dL (3.5-5.2); Alkaline Phosphatase 73 U/L (40-130); Anion Gap 13.1 (5-19); Aspartate Amino Transferase 23 U/L (0-40); Blood Urea Nitrogen 25 mg/dL (6-20); Calcium 8.7 mg/dL (8.5-10.5); Carbon Dioxide 28 mmol/L (22-29); Chloride 105 mmol/L (98-107); Globulin 2.8 g/dL (1.3-4.6); Glomerular Filtration Rate 120.4 mL/min (90-130); Glucose 85 mg/dL (65-115); Osmolality Calculated 298 mOsm/kg (285-295); Potassium 4.1 mmol/L (3.5-5.1); Sodium 142 mmol/L (136-145); Total Bilirubin 0.2 mg/dL (0.15-1.2); Total Protein 6.7 g/dL (6.6-8.7)
--- NOTE | 2024-11-29 22:44 | ED_ITS ---
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 Patient Nuys any nausea, and vomiting. He states he has had 7 ulcers in the past. He is currently on pantoprazole, and Carafate. States this has been worsening over the last 1 day. No fevers. No history of IBD/Crohn's/ulcerative colitis Associated Symptoms: Reports change in bowel habits, hematuria, nausea and other (bloody stool< dark); Denies chills, fever(s) and vomiting Related Data Home Medications ?Medication ?Instructions ?Recorded ?Confirmed lurasidone 40 mg tablet 40 mg PO QPM 09/22/23 paroxetine HCl 20 mg tablet 20 mg PO DAILY 09/22/23 propranolol 10 mg tablet 10 mg PO BID 08/19/24 quetiapine 300 mg tablet 300 mg PO BEDTIME 08/19/24 0 08/19/24 tamsulosin 0.4 mg capsule 0.4 mg PO DAILY 08/19/24 trazodone 150 mg tablet 150 mg PO BEDTIME 08/19/24 0 08/19/24 Previous Rx's ?Medication ?Instructions ?Recorded albuterol sulfate 90 mcg/actuation 2 puff inhalation Q 4H PRN 06/25/24 aerosol inhaler (Ventolin HFA) shortness of breath or wheezing #8.5 grams fluticasone propionate 50 2 spray intranasal DAILY #16 grams 08/16/24 mcg/actuation nasal spray,suspension bacitracin 500 unit/gram topical 1 applic topical BID #14 grams 08/19/24 ointment (Bacitraycin Plus) nifedipine 30 mg tablet,extended 30 mg PO DAILY #30 ta bs 08/29/24 release 24 hr (Procardia XL) lansoprazole 30 mg capsule,delayed 30 mg PO DAILY #30 caps 09/07/24 release (Prevacid) Allergies Allergy/AdvReac Type Severity Reaction Status Date / Time No Known Allergies Allergy Verified 09/05/24 00:33 Review of Systems 2 General: Reports: 10 or more systems reviewed and unremarkable except in HPI and below Const: Denies: fever(s) or chills Eyes: Denies: change in vision or blurry vision ENMT: Denies: throat pain or mouth pain Card: Denies: chest pain or palpitations Resp: Denies: dyspnea or non-productive cough GI: Reports: abdominal pain, nausea, change in bowel habits and other (bloody stool< dark); Denies: vomiting : Reports: hematuria; Denies: flank pain, urinary frequency or urinary urgency Musc: Denies: neck pain, back pain or extremity pain Skin/Breast: Denies: rash or pruritus Neuro: Denies: headache(s) or numbness in extremities Psych: Reports: anxiety; Denies: depression PFSH ED 2 PFSH: Medical History Psychiatric care Atrial flutter Atrial fibrillation Methamphetamine abuse -UDS positive for amphetamines/THC Bipolar 1 disorder, manic, mild Depressive disorder, not elsewhere classified Adjustment disorder with mixed disturbance of emotions and conduct Alcohol use disorder -Has known history of alcohol abuse&DT Surgical History H/O hernia repair History of appendectomy Family History Other Alcoholism /alcohol abuse Social History Smoking and tobacco/nicotine status: never used tobacco/nicotine Quit status (tobacco/nicotine): has tried quititng Number of times tried to quit tobacco: 4 Second hand smoke exposure: Yes Alcohol intake: current Substance/Drug Use: current Current gender identity: Male Physical Exam 2 Const: COMMON NORMALS: no acute distress, average body habitus and patient oriented x3 GENERAL APPEARANCE: cooperative HENMT: COMMON NORMALS: normocephalic and atraumatic HEAD & SCALP: n ormocephalic and atraumatic Lymph: LYMPHATIC: no lymphadenopathy noted Resp: COMMON NORMALS: normal respiratory effort and No retractions Cardio: COMMON NORMALS: regular rate and regular rhythm RATE: regular rate RHYTHM: regular rhythm GI: COMMON NORMALS: Normal to inspection, nondistended, normoactive bowel sounds present and Soft to palpation PALPATION: Yes Soft to palpation and Yes Tenderness to palpation present (GI) Details: other (epigastrum) : COMMON NORMALS: Yes no CVA tenderness BLADDER/KIDNEY EXAM: Yes no CVA tenderness Back/Pelvis: COMMON NORMALS: no CVA tenderness Extremity: COMMON NORMALS: normal to inspection, full ROM and capillary refill normal Neuro: COMMON NORMALS: patient oriented x3 Psych: COMMON NORMALS: mental status grossly normal and Normal thought process present THOUGHT PROCESS: Normal thought process present Skin: COMMON NORMALS: no rashes or lesions noted and no wounds GENERAL SKIN EXAM: no rashes or lesions noted Course 2 Vital Signs: Vital signs: Vital Signs Temperature 98.0 F 11/29/24 21:48 Pulse Rate 69 11/29/24 23:00 Respiratory Rate 16 11/29/24 21:48 Blood Pressure 127/85 11/29/24 22:10 Pulse Oximetry 97 11/29/24 23:00 Oxygen Delivery Me thod Room Air 11/29/24 22:30 MDM - Abdominal Pain Medical Decision Making Patient is a 49-year-old gentleman with multiple history of peptic ulcer that presents with epigastric pain. Workup is without evidence of gastric ulcer. Hemoglobin is stable. X-ray does not indicate perforation. Urinalysis does not show hematuria. Patient is currently incarcerated, and compliant to pantoprazole, Carafate. Given this evidence, compliance that is documented, it is less likely that this is gastritis or peptic ulcer. Large volume of stool was found on x-ray, which is most likely. Will give patient lactulose x 1, and recommend stool softener daily. Side effect of Carafate is obstipation. Medical Records I reviewed the patient's medical records. Lab Data I reviewed the patient's lab results. 11/29/24 22:07 11/29/24 22:07 Labs/Radiology: Radiology Impressions Abdomen X-Ray 11/29/24 21:55 IMPRESSION: As above. Laboratory Results WBC 4.47 10^3/uL (3.29-11.43) 11/29/24 22:07 RBC 3.78 10^6/uL (3.85-5.65) L 11/29/24 22:07 Hgb 13.00 g/dL (11.27-16.99) 11/29/24 22:07 Hct 38.6 % (37-53) 11/29/24 22:07 MCV 102.1 fl (82-101) H 11/29/24 22:07 MCH 34.4 pg (27-33) H 11/29/24 22:07 MCHC 33.7 g/dL (30-55) 11/29/24 22:07 RDW 11.9 % (12.1-15.1) L 11/29/24 22:07 Plt Count 198 10^3/cmm (157-399) 11/29/24 22:07 MPV 10.1 fL (7.4-10.4) 11/29/24 22:07 Neut % (Auto) 47.7 % 11/29/24 22:07 Lymph % (Auto) 37.1 % 11/29/24 22:07 Coffey % (Auto) 11.9 % 11/29/24 22:07 Eos % (Auto) 2.9 % 11/29/24 22:07 Baso % (Auto) 0.4 % 11/29/24 22:07 Neut # (Auto) 2.13 10^3/uL (1.8-7.7) 11/29/24 22:07 Lymph # (Auto) 1.7 10^3/uL (0.8-4.8) 11/29/24 22:07 Coffey # (Auto) 0.5 10^3/uL (0.2-0.9) 11/29/24 22:07 Eos # (Auto) 0.1 10^3/uL (0.0-0.8) 11/29/24 22:07 Baso # (Auto) 0.0 10^3/uL (0.0-0.1) 11/29/24 22:07 Nucleated RBC % (auto) 0 % 11/29/24 22:07 Nucleated RBCs # 0.0 /100WBC 11/29/24 22:07 Sodium 142 mmol/L (136-145) 11/29/24 22:07 Potassium 4.1 mmol/L (3.5-5.1) 11/29/24 22:07 Chloride 105 mmol/L (98-107) 11/29/24 22:07 Carbon Dioxide 28 mmol/L (22-29) 11/29/24 22:07 Anion Gap 13.1 (5-19) 11/29/24 22:07 BUN 25 mg/dL (6-20) H 11/29/24 22:07 Creatinine 0.7 mg/dL (0.7-1.2) 11/29/24 22:07 GFR Calculation 120.4 mL/min (90-130) 11/29/24 22:07 Glucose 85 mg/dL (65-115) 11/29/24 22:07 Calculated Osmolality 298 mOsm/kg (285-295) H 11/29/24 22:07 Calcium 8.7 mg/dL (8.5-10.5) 11/29/24 22:07 Total Bilirubin 0.2 mg/dL (0.15-1.2) 11/29/24 22:07 AST 23 U/L (0-40) 11/29/24 22:07 ALT 29 U/L (0-41) 11/29/24 22:07 Alkaline Phosphatase 73 U/L (40-130) 11/29/24 22:07 Total Protein 6.7 g/dL (6.6-8.7) 11/29/24 22:07 Albumin 3.9 g/dL (3.5-5.2) 11/29/24 22:07 Globulin 2.8 g/dL (1.3-4.6) 11/29/24 22:07 Urine Color Yellow (Yellow) 11/29/24 22:44 Urine Appearance Clear (CLEAR) 11/29/24 22:44 Urine pH 7.0 (5-7) 11/29/24 22:44 Ur Specific [place] 1.023 (1.005-1.030) 11/29/24 22:44 Urine Protein Negative (Negative) 11/29/24 22:44 Urine Glucose (UA) Negative (Normal) 11/29/24 22:44 Urine Ketones Negative (Negative) 11/29/24 22:44 Urine Blood Negative (Negative) 11/29/24 22:44 Urine Nitrate Negative (Negative) 11/29/24 22:44 Urine Bilirubin Negative (Negative) 11/29/24 22:44 Urine Urobilinogen 1.0 mg/dL (Negative) 11/29/24 22:44 Ur Leukocyte Esterase Negative (Negative) 11/29/24 22:44 Urine RBC 0-2 /hpf (0-2) 11/29/24 22:44 Urine WBC 0-5 /hpf (0-5) 11/29/24 22:44 Ur Squamous Epith Cells 0-5 /hpf (0-5) 11/29/24 22:44 Amorphous Sediment Not Reportable 11/29/24 22:44 Urine Bacteria None seen /hpf (NONE) 11/29/24 22:44 Hyaline Casts 0-4 /lpf H 11/29/24 22:44 All radiology interpretation(s) finalized by discharge ED provider radiology interpretation(s): no acute Discharge Plan Discharge Patient Disposition: Xfer [facility] Clinical Impression: Constipation Qualifiers: Constipation type: slow transit constipation Qualified Code(s): K59.01 - Slow transit constipation Condition: Stable Prescriptions: No Action albuterol sulfate [Ventolin HFA] 90 mcg/actuation HFA aerosol inhaler 2 puff inhalation Q4H PRN (Reason: shortness of breath or wheezing) Qty: 8.5 0RF fluticasone propionate 50 mcg/actuation spray,suspension 2 spray INTRANASAL DAILY Qty: 16 0RF paroxetine HCl 20 mg tablet 20 mg PO DAILY lurasidone 40 mg tablet 40 mg PO QPM quetiapine 300 mg tablet 300 mg PO BEDTIME propranolol 10 mg tablet 10 mg PO BID tamsulosin 0.4 mg capsule 0.4 mg PO DAILY trazodone 150 mg tablet 150 mg PO BEDTIME bacitracin [Bacitraycin Plus] 500 unit/gram ointment 1 applic topical BID Qty: 14 0RF nifedipine [Procardia XL] 30 mg tablet extended release 24hr 30 mg PO DAILY Qty: 30 1RF lansoprazole [Prevacid] 30 mg capsule,delayed release(DR/EC) 30 mg PO DAILY Qty: 30 0RF Discharge Orders: Discharge ED (Routine); Ordered 11/29/24 Ordered By: Lacy Cline Referrals: Chayito Cali MD [Primary Care Provider, Family Practice] Discharge Diet: Usual diet Discharge Activity: Resume usual activity Patient Instructions: Constipation (ED) Activity Restrictions/Additional Instructions: You may take a stool softener daily to help with current symptoms Return to ED for worsening pain, throwing up blood, or pooping blood. You did not have any blood in your urine Is important to see your primary care physician regarding this visit. Please follow-up this week with scheduled primary care. Print Language: Kiswahili Coding Level of Care Code ED [place] [employer] Group Leader for Camila Alvares
[2024-11-29 22:53] LABS: Bilirubin Urine Negative (Negative); Blood Urine Negative (Negative); Glucose Urine UA Negative (Normal); Ketones Urine Negative (Negative); Leukocyte Esterase Urine Negative (Negative); Nitrate Urine Negative (Negative); Protein Urine Negative (Negative); Specific Gravity, Urine 1.023 (1.005-1.030); Urine Appearance Clear (CLEAR); Urine Color Yellow (Yellow)
[2024-11-29] MEDS: pantoprazole 40 mg SDV 80 MG IVP (22:54)
[2024-11-29] MEDS: lidocaine 2% viscous 15 ML, aluminum-mag hydrox-simethicon 30 ML, sucralfate oral liq 1 GM PO (22:54)
[2024-11-29 22:55] LABS: Add Urine Microscopic? YES; Bacteria Urine None Seen /hpf; Hyaline Casts Urine 0-4 /lpf; RBC Urine 0-2 /hpf (0-2); Squamous Epithelial Cell Urine 0-5 /hpf (0-5); WBC Urine 0-5 /hpf (0-5)
[2024-11-29 23:00] VITALS: PULSE 69; O2SAT 97
[2024-11-29] MEDS: lactulose oral liq 20 gm/30 mL UDC 30 GM PO (23:35)
[2024-11-30 01:48] VITALS: BP 118/88; PULSE 70; O2SAT 97
== END 2024-11-29 23:30 | disposition intermediate care facility (04) ==
PROVIDERS: Emergency Provider Physician Assistant; PCP Family Medicine
DX: K59.01 Slow transit constipation (principal); Z87.891 Personal history of nicotine dependence
CPT/HCPCS: 74019; 80053; 81001; 85025; 96365; 99284; J2470; J9999

== ENCOUNTER 2025-03-06 14:42 | Emergency (ER) | payer MEDICAID, SELFPAY ==
[2023-12-27 15:20] VITALS: BP 128/98; BMI 17.0
[2025-03-06 14:47] VITALS: BP 114/82; PULSE 91; RESP 18; TEMP 36.8; O2SAT 99; BMI 22.8
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
--- OUTSIDE RECORDS SUMMARY | 2025-03-06 14:49 | XMS_ITS | Encounter Summary ---
Author Organization [facility] Address 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 Gender Identity Not on file Sexual Orientation Not on file documented as of this encounter Plan of Treatment Upcoming Encounters Date Type Department Care Team (Late st Contact Info) Description 06/07/2025 3:30 PM TRIM LINE WORKER Office Visit [facility] [address] [phone] Fidelina Cali MD [facility] [address] [phone] documented as of this encounter Goals Goal [...] Total Score: 6 06/08/19 23 12:17 PM TRIM LINE WORKER documented as of this encounter Care Teams Donor Support Technician Relationship Specialty Start Date End Date Fidelina Cali MD [address] [phone] PCP - General Family Practice 04/20/22 documented as of this encounter
== END 2025-03-06 14:52 | disposition home or self-care (01) ==
PROVIDERS: Emergency Provider Emergency Medicine; PCP Family Medicine
DX: F22 Delusional disorders (principal); F10.20 Alcohol dependence, uncomplicated
CPT/HCPCS: 99283

== ENCOUNTER 2025-04-07 10:47 | Emergency (ER) | payer MEDICAID, SELFPAY ==
[2023-12-27 15:20] VITALS: BP 128/98; BMI 17.0
[2025-04-07 10:48] VITALS: BP 125/87; PULSE 110; RESP 18; TEMP 37.1; O2SAT 97; BMI 24.3
--- NOTE | 2025-04-07 10:50 | W.ED.GENADLT ---
HPI - General Adult General: Stated complaint: Agitated History of Present Illness: 49-year-old who presents emergency room by ambulance with a complaint of his methamphetamine he took today made him feel agitated and not like it usually does. He does appear bit agitated. Otherwise no focal motor deficits. No altered mental status. He says he smoked some weed after and he thinks that might of had some fentanyl on it. Related Data Home Medications ?Medication ?Instructions ?Recorded ?Confirmed lurasidone 40 mg tablet 40 mg PO QPM 09/22/23 08/19/24 paroxetine HCl 20 mg tablet 20 mg PO DAILY 09/22/23 08/19/24 propranolol 10 mg tablet 10 mg PO BID 08/19/24 08/19/24 quetiapine 300 mg tablet 300 mg PO BEDTIME 08/19/24 08/19/24 tamsulosin 0.4 mg capsule 0.4 mg PO DAILY 08/19/24 08/19/24 trazodone 150 mg tablet 150 mg PO BEDTIME 08/19/24 08/19/24 Previous Rx's ?Medication ?Instructions ?Recorded albuterol sulfate 90 mcg/actuation 2 puff inhalation Q4H PRN 06/25/24 aerosol inhaler (Ventolin HFA) shortness of breath or wheezing #8.5 grams fluticasone propionate 50 2 spray intranasal DAILY #16 grams 08/16/24 mcg/actuation nasal spray,suspension bacitracin 500 unit/gram topical 1 applic topical BID #14 grams 08/19/24 ointment (Bacitraycin Plus) nifedipine 30 mg tablet,extended 30 mg PO DAILY #30 tabs 08/29/24 release 24 hr (Procardia XL) lansoprazole 30 mg capsule,delayed 30 mg PO DAILY #30 caps 09/07/24 release (Prevacid) Allergies Allergy/AdvReac Type Severity Reaction Status Date / Time No Known Allergies Allergy Verified 09/05/24 00:33 Review of Systems Narrative: Constitutional symptoms: Negative except as documented in HPI. Skin symptoms: Negative except as documented in HPI. Eye symptoms: Negative except as documented in HPI. ENMT symptoms: Negative except as documented in HPI. Respiratory symptoms: Negative except as documented in HPI. Cardiovascular symptoms: Negative except as documented in HPI. Gastrointestinal symptoms: Negative except as documented in HPI. Genitourinary symptoms: Negative except as documented in HPI. Musculoskeletal symptoms: Negative except as documented in HPI. Neurologic symptoms: Negative except as documented in HPI. Psychiatric symptoms: Negative except as documented in HPI. Endocrine symptoms: Negative except as documented in HPI. PFSH ED PFSH: Medical History (Updated 04/07/25 @ 10:50 by Dorina George MD) Psychiatric care Atrial flutter Atrial fibrillation Methamphetamine abuse -UDS positive for amphetamines/THC Bipolar 1 disorder, manic, mild Depressive disorder, not elsewhere classified Adjustment disorder with mixed disturbance of emotions and conduct Alcohol use disorder -Has known history of alcohol abuse&DT Surgical History H/O hernia repair History of appendectomy Family History Other Alcoholism /alcohol abuse Social History Smoking and tobacco/nicotine status: never used tobacco/nicotine Quit status (tobacco/nicotine): has tried quititng Number of times tried to quit tobacco: 4 Second hand smoke exposure: Yes Alcohol intake: current Substance/Drug Use: current Current gender identity: Male Physical Exam Narrative: EXAM NARRATIVE: General: Alert, no acute distress. Skin: Warm, dry. Head: Normocephalic, atraumatic. Neck: Supple, trachea midline. Eye: Extraocular movements are intact. Ears, nose, mouth and throat: mucosa moist. Cardiovascular: Regular, Normal peripheral perfusion. Respiratory: Lungs are clear to auscultation, respirations are non-labored, breath sounds are equal, Symmetrical chest wall expansion. Gastrointestinal: Soft, Nontender, Non distended Musculoskeletal: Normal ROM, no deformity. Neurological: Alert and oriented, No focal neurological deficit observed. Psychiatric: Patient appears a bit pressured and agitated. MDM - General Adult Medical Decision Making Medical decision making: Patient's reason for coming to the emergency room Social determinants: Patient is unemployed and has a drug abuse history. I reviewed the patient's medical record. Patient has very frequent visits to the emergency room. Most recently he was in the ER just a month ago with paranoia I reviewed the patient's current home meds Alternate historians: EMS gave history as well. Differential diagnosis: including but not limited to and based on the above HPI, review of systems and physical exam: Patient admittedly took methamphetamine, marijuana and possibly fentanyl. His vitals are stable. He has no suicidal or homicidal ideations. I advised that he stop taking drugs. I am giving him some Ativan and Benadryl. Lab Review: Laboratory results were reviewed and interpreted by myself the emergency room physician. No lab work indicated today. Assessment of risk: Level of risk: Moderate Hospitalization considerations: No homicidal or suicidal ideations. Assessment and plan: Methamphetamine abuse ?Ativan and Benadryl in the emergency room - Discharged home - Discussed plan with patient. Answered any questions. - Evaluation and treatment of this problem were appropriate in the emergency setting. No radiology studies performed this visit Discharge Plan Discharge Patient Disposition: Home Clinical Impression: Methamphetamine abuse Condition: Stable Prescriptions: No Action albuterol sulfate [Ventolin HFA] 90 mcg/actuation HFA aerosol inhaler 2 puff inhalation Q4H PRN (Reason: shortness of breath or wheezing) Qty: 8.5 0RF fluticasone propionate 50 mcg/actuation spray,suspension 2 spray INTRANASAL DAILY Qty: 16 0RF paroxetine HCl 20 mg tablet 20 mg PO DAILY lurasidone 40 mg tablet 40 mg PO QPM quetiapine 300 mg tablet 300 mg PO BEDTIME propranolol 10 mg tablet 10 mg PO BID tamsulosin 0.4 mg capsule 0.4 mg PO DAILY trazodone 150 mg tablet 150 mg PO BEDTIME bacitracin [Bacitraycin Plus] 500 unit/gram ointment 1 applic topical BID Qty: 14 0RF nifedipine [Procardia XL] 30 mg tablet extended release 24hr 30 mg PO DAILY Qty: 30 1RF lansoprazole [Prevacid] 30 mg capsule,delayed release(DR/EC) 30 mg PO DAILY Qty: 30 0RF Discharge Orders: Discharge ED (Routine); Ordered 04/07/25 Ordered By: Dorina George Referrals: Chayito Cali MD [Primary Care Provider, Family Practice] Discharge Diet: Usual diet Discharge Activity: Increase activity as tolerated Patient Instructions: Opioid Safety, Pain Management, Patient Portal & Alexander Instructions Activity Restrictions/Additional Instructions: Please stop taking methamphetamine. This is bad for you. Thank you for choosing [facility] for your healthcare needs today. You have been screened and evaluated and felt safe for discharge. Health conditions do change or evolve sometimes and as such it is important that you follow up with your Primary Doctor to be re checked, 3-5 days is a general good time frame for follow up. You are always welcome to return to the ED for re assessment if your symptoms are worsening or you have new concerns Print Language: Moldovan Coding Level of Care Code ED Agile Coach for Camila Alvares
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
[2025-04-07] MEDS: LORazepam 2 mg/mL INJ 1 mL 1 MG IVP (10:54)
[2025-04-07] MEDS: diphenhydrAMINE 50 mg/mL SDV 1mL IVP (10:55)
--- NOTE | 2025-04-07 11:07 | PC.NURSE ---
PT ripped out his IV. This nurse applied 2x2 and coban
--- NOTE | 2025-04-07 11:08 | PC.PHAR ---
Sophie crockett and nahun verified that Patient has not picked up anything since 02/11/25 .
[2025-04-07 11:10] VITALS: BP 128/80; PULSE 102; O2SAT 98
== END 2025-04-07 11:11 | disposition home or self-care (01) ==
PROVIDERS: Emergency Provider Emergency Medicine; PCP Family Medicine
DX: F15.10 Other stimulant abuse, uncomplicated (principal); Z87.891 Personal history of nicotine dependence
CPT/HCPCS: 96374; 96375; 99284; J1200; J2060

== ENCOUNTER 2025-04-07 13:09 | Inpatient (IN) | payer MEDICAID, SELFPAY ==
[2023-12-27 15:20] VITALS: BP 128/98; BMI 17.0
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
--- NOTE | 2025-04-07 13:11 | ECG_ITS ---
[employer] Test Date: 2025-04-07 Pat Name: Ludin Gordon Department: Room: Gender: Male Manager Printing: : 1975 Requested By: Dorina Machado Order Number: [id number] Jaime MD: Jesus Tellez M.D. Measurements Intervals [place] Rate: 115 P: 115 WA: 128 QRS: 151 QRSD: 82 T: 110 QT: 346 QTc: 479 Interpretive Statements SINUS TACHYCARDIA ARM LEADS REVERSED [INVERTED P AND QRS IN I] ABNORMAL RHYTHM ECG Compared to ECG 09/06/2024 23:16:55 Sinus rhythm no longer present Electronically Signed On 04-07-2025 23:40:50 DEPARTMENT HEAD by Jesus Tellez M.D. [email or web address]
[2025-04-07 13:13] VITALS: BP 124/73; PULSE 93; RESP 17; TEMP 37.1; O2SAT 95; BMI 18.2
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
--- NOTE | 2025-04-07 13:23 | PC.NURSE ---
pt changed into green paper scrubs, belongings removed. security notified. per [facility] officer, Hira, did not have time to serve 96 hour paperwork, left paperwork at desk. Security notified HCS[facility], [facility]. [facility] states Hira will come serve patient 96 hour hold paperwork.
[2025-04-07 13:32] LABS: Hematocrit 46.0 % (37-53); Hemoglobin 15.50 g/dL (11.27-16.99); Mean Corpuscular HGB Conc 33.7 g/dL (30-55); Mean Corpuscular Hemoglobin 35.0 pg (27-33); Mean Corpuscular Volume 103.8 fl (82-101); Nucleated Red Blood Cells % 0 %; Platelet Count 375 10^3/cmm (157-399); Red Blood Count 4.43 10^6/uL (3.85-5.65); White Blood Count 10.75 10^3/uL (3.29-11.43)
[2025-04-07 14:06] LABS: Alanine Aminotransferase 22 U/L (0-41); Albumin Level 4.1 g/dL (3.5-5.2); Alkaline Phosphatase 107 U/L (40-130); Aspartate Amino Transferase 31 U/L (0-40); Blood Urea Nitrogen 25 mg/dL (6-20); Calcium 8.7 mg/dL (8.5-10.5); Carbon Dioxide 23 mmol/L (22-29); Chloride 100 mmol/L (98-107); Globulin 3.6 g/dL (1.3-4.6); Glucose 77 mg/dL (65-115); Osmolality Calculated 291 mOsm/kg (285-295); Sodium 139 mmol/L (136-145); Total Protein 7.7 g/dL (6.6-8.7)
[2025-04-07 14:07] LABS: Acetaminophen < 5.0 ug/mL (10-30); Alcohol Level < 10 mg/dL (0-10); Anion Gap 19.6 (5-19); Potassium 3.6 mmol/L (3.5-5.1); Salicylate < 0.3 mg/dL (3-10)
[2025-04-07 14:11] LABS: Thyroid Stimulating Hormone 3.56 uIU/mL (0.27-4.20)
--- NOTE | 2025-04-07 14:42 | PC.NURSE ---
Pt was read his 96 hour hold rights at [id number]. Security was present
[2025-04-07 15:26] LABS: Glucose Urine UA Negative (Normal); Nitrate Urine Negative (Negative); Specific Gravity, Urine 1.027 (1.005-1.030)
[2025-04-07 15:28] LABS: Add Urine Microscopic? YES
[2025-04-07 15:33] LABS: PCP Screen Urine Negative (Negative)
[2025-04-07 16:37] VITALS: BP 128/71; PULSE 82; O2SAT 96
[2025-04-07 16:53] VITALS: BP 107/76; PULSE 96; RESP 18; TEMP 37; O2SAT 97
[2025-04-07 20:12] VITALS: BP 104/66; PULSE 88; RESP 18; O2SAT 98
[2025-04-08 06:00] VITALS: BP 111/74; PULSE 111; RESP 18; TEMP 36.8; O2SAT 98
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
[2025-04-08 14:00] VITALS: BP 104/72; PULSE 87; RESP 16; TEMP 36.5; O2SAT 100
[2025-04-08 20:17] VITALS: BP 106/68; PULSE 89; RESP 16; TEMP 36.9; O2SAT 97
[2025-04-09 06:00] VITALS: BP 96/65; PULSE 85; RESP 18; TEMP 36.6; O2SAT 96
--- NOTE | 2025-04-09 12:07 | P.NPUPN_ITS ---
Subjective NPU 2 Subjective: Patient presented today reporting that he is doing all right. He reports he is feeling a little less shaky and is thinking that maybe the right answer is returning on his Suboxone. He reports he would want to return to where he was going before which was a [facility]. We discussed the risks, benefits and alternatives of that plan and he understood and agreed to proceed as documented in this note but we discussed wanting to talk to them at that program to see if they would except him and use that as a determining factor for any medication that we would give him in relation to that. He denied any side effects to his medication. Mental Status Exam 2 MSE Comments: This is a slender versus underweight/cachectic white male in hospital scrubs with poor grooming and eye contact. No abnormal movements except for psychomotor retardation and significant tremulousness. Cooperative with exam in mild to moderate distress. Speech was decreased rate and volume. Mood described as a little better affect congruent and less subdued. Thought process linear but at times disorganized. Thought content: Patient denied current suicidal or homicidal ideation, there are no delusions reported or but clear paranoid, persecutory and bizarre delusions noted, he denied any auditory or visual hallucinations currently but was having them at admission. Attention and concentration were limited and memory was mostly reliable but none were formally tested. He is alert and oriented x3. Insight, judgment and impulse control are impaired. Vitals/I&O/Wt Last Vital Signs Temp 97.9 F 04/09/25 06:00 Pulse 85 04/09/25 06:00 Resp 18 04/09/25 06:00 BP 96/65 04/09/25 06:00 Pulse Ox 96 04/09/25 06:00 O2 Del Method Room Air 04/09/25 06:00 Weight last 48 hrs Weight 54.431 kg Data NPU 04/07/25 13:25 04/07/25 13:25 A&P Assessment and plan 1. Suicidal ideation: 2. Alcohol use disorder: 3. Adjustment disorder with mixed disturbance of emotions and conduct: 4. Major depressive disorder: 5. Methamphetamine use disorder, severe, dependence: 6. Bipolar 1 disorder, manic, mild: 7. Alcohol use disorder, severe, dependence: 8. Paranoia: 9. Anxiety: 10. Alcohol dependence: 11. Anxiety disorder, unspecified: 12. Acute psychosis: Plan: This is a 49-year-old male with many past psychiatric admissions and significant history of substance abuse, typically alcohol, methamphetamine and cannabis who presents on a 96-hour hold secondary to recent active addiction with cannabis and methamphetamine leading to him being put on a 96-hour hold due to psychosis and delinquent behavior. Plan: 1. Restart home medications. Patient requesting to restart Suboxone. 2. Encourage individual, group and milieu therapy. 3. Continue every 15 minute checks for safety. 4. Encourage sober living treatment after discharge at the highest level of care to which he is willing to commit. 5. Obtain collateral information. 6. Observe against the backdrop of the 96-hour hold. 7. Patient reporting an interest in returning to [facility]. Patient and staff attempted to call them. We will attempt to call again in the morning to get some input from them as far as restarting that and discharge back to their program. PDMP PDMP Reviewed: Not Reviewed Involuntary Hold Information 2 Hold Status: Legal Status: 96 Hour Hold Date/Time Hold Expires: 1 06/14/24@1334 96 Hour Hold: 96 Hour Involuntary Admission: Yes Attestations NPU 2 Medical Necessity Statement*: Inpatient hospitalization is medically necessary and the clinically appropriate intervention at this time.? We will monitor/initiate medications and make changes as indicated.? His likely length of stay 1-3 days. Coding Level of Care Code Acute Code for [facility] Fwd Diagnoses Suicidal ideation R45.851 Alcohol use disorder F10.90 Adjustment disorder with mixed disturbance of emotions and conduct F43.25 Major depressive disorder F32.9 Methamphetamine use disorder, severe, dependence F15.20 Bipolar 1 disorder, manic, mild F31.11 Alcohol use disorder, severe, dependence F10.20 Paranoia F22 Anxiety F41.9 Alcohol dependence F10.20 Anxiety disorder, unspecified F41.9 Acute psychosis F23
[2025-04-09 14:00] VITALS: BP 132/80; PULSE 82; RESP 16; TEMP 37.1; O2SAT 99
[2025-04-09 20:17] VITALS: BP 112/67; PULSE 89; RESP 18; TEMP 36.4; O2SAT 97
[2025-04-10 06:00] VITALS: BP 123/79; PULSE 88; RESP 16; TEMP 36.6; O2SAT 99
[2025-04-10 14:00] VITALS: BP 110/67; PULSE 91; RESP 19; TEMP 36.7; O2SAT 97
--- NOTE | 2025-04-10 17:59 | W.PM.NPUPNS ---
Subjective NPU Subjective: Patient presented today reporting that things are going a little better than yesterday. He reports that he is open to residential treatment including the possibility of rehab and or a longer treatment scenario. He reports that he is ready to get this active use behind him and that he will be open to work with the social work team to make that happen once they return Saturday. He denied any side effects to his medication and reports a desire to resume medication in general to try to deal with his mental health and addiction. Mental Status Exam MSE Comments: This is a slender versus underweight/cachectic white male in hospital scrubs with poor grooming and eye contact. No abnormal movements except for psychomotor retardation and significant tremulousness. Cooperative with exam in mild to moderate distress. Speech was decreased rate and volume. Mood described as a little better affect congruent and less subdued. Thought process linear but at times disorganized. Thought content: Patient denied current suicidal or homicidal ideation, there are no delusions reported or but clear paranoid, persecutory and bizarre delusions noted, he denied any auditory or visual hallucinations currently but was having them at admission. Attention and concentration were limited and memory was mostly reliable but none were formally tested. He is alert and oriented x3. Insight, judgment and impulse control are impaired. Vitals/I&O/Wt Last Vital Signs Temp 98.4 F 04/10/25 20:23 Pulse 84 04/10/25 20:23 Resp 18 04/10/25 20:23 BP 109/73 04/10/25 20:23 Pulse Ox 98 04/10/25 20:23 O2 Del Method Room Air 04/10/25 20:23 Data NPU 04/07/25 13:25 04/07/25 13:25 A&P Assessment and plan 1. Suicidal ideation: 2. Alcohol use disorder: 3. Adjustment disorder with mixed disturbance of emotions and conduct: 4. Major depressive disorder: 5. Methamphetamine use disorder, severe, dependence: 6. Bipolar 1 disorder, manic, mild: 7. Alcohol use disorder, severe, dependence: 8. Paranoia: 9. Anxiety: 10. Alcohol dependence: 11. Anxiety disorder, unspecified: 12. Acute psychosis: Plan: This is a 49-year-old male with many past psychiatric admissions and significant history of substance abuse, typically alcohol, methamphetamine and cannabis who presents on a 96-hour hold secondary to recent active addiction with cannabis and methamphetamine leading to him being put on a 96-hour hold due to psychosis and delinquent behavior. Plan: 1. Restart home medications. Patient requesting to restart Suboxone. 2. Encourage individual, group and milieu therapy. 3. Continue every 15 minute checks for safety. 4. Encourage sober living treatment after discharge at the highest level of care to which he is willing to commit. 5. Obtain collateral information. 6. Observe against the backdrop of the 96-hour hold. 7. Patient reporting an interest in returning to [facility]. Patient and staff attempted to call them. We will attempt to call again in the morning to get some input from them as far as restarting that and discharge back to their program. He also reports that he is talk to his and she is really worried about him and that he is open to exploring rehab and other residential treatment options. PDMP PDMP Reviewed: Not Reviewed Involuntary Hold Information Hold Status: Legal Status: 96 Hour Hold Date/Time Hold Expires: 04/14/25@1334 96 Hour Hold: 96 Hour Involuntary Admission: Yes Attestations NPU Medical Necessity Statement*: Inpatient hospitalization is medically necessary and the clinically appropriate intervention at this time.? We will monitor/initiate medications and make changes as indicated.? His likely length of stay 2-4 days. Coding Level of Care Code Acute Code for [facility] Fwd Diagnoses Suicidal ideation R45.851 Alcohol use disorder F10.90 Adjustment disorder with mixed disturbance of emotions and conduct F43.25 Major depressive disorder F32.9 Methamphetamine use disorder, severe, dependence F15.20 Bipolar 1 disorder, manic, mild F31.11 Alcohol use disorder, severe, dependence F10.20 Paranoia F22 Anxiety F41.9 Alcohol dependence F10.20 Anxiety disorder, unspecified F41.9 Acute psychosis F23
[2025-04-10 20:23] VITALS: BP 109/73; PULSE 84; RESP 18; TEMP 36.9; O2SAT 98
[2025-04-11] MEDS: cetylpyridinium Lozenge 1 EACH MUCOUS MEM ×2 (02:13→19:26)
[2025-04-11 06:00] VITALS: BP 118/69; PULSE 85; RESP 18; TEMP 36.6; O2SAT 98; BMI 21.8
[2025-04-11 14:00] VITALS: BP 118/76; PULSE 95; RESP 17; TEMP 36.9; O2SAT 98
--- NOTE | 2025-04-11 14:15 | P.NPUPN_ITS ---
Subjective NPU 2 Subjective: Patient presented today reporting that things are going a little better than yesterday. He continued to report an openness to residential treatment including the possibility of rehab and or a longer treatment scenario. He reports that he will work with the social work team tomorrow to make that happen. He denied any side effects to his medication and reports a desire to resume medication in general to try to deal with his mental health and addiction. We discussed his contacting [facility] in the morning to discuss his return to their care and that we would use their acceptance to inform our consideration of resuming suboxone. Mental Status Exam 2 MSE Comments: This is a slender versus underweight/cachectic white male in hospital scrubs with poor grooming and eye contact. No abnormal movements except for psychomotor retardation and significant tremulousness. Cooperative with exam in mild to moderate distress. Speech was decreased rate and volume. Mood described as a little better affect congruent and less subdued. Thought process linear but at times disorganized. Thought content: Patient denied current suicidal or homicidal ideation, there are no delusions reported or but clear paranoid, persecutory and bizarre delusions noted, he denied any auditory or visual hallucinations currently but was having them at admission. Attention and concentration were limited and memory was mostly reliable but none were formally tested. He is alert and oriented x3. Insight, judgment and impulse control are impaired. Vitals/I&O/Wt Last Vital Signs Temp 97.8 F 04/11/25 06:00 Pulse 85 04/11/25 06:00 Resp 18 04/11/25 06:00 BP 118/69 04/11/25 06:00 Pulse Ox 98 04/11/25 06:00 O2 Del Method Room Air 04/11/25 06:00 Weight last 48 hrs Weight 65.034 kg Data NPU 04/07/25 13:25 04/07/25 13:25 A&P Assessment and plan 1. Suicidal ideation: 2. Alcohol use disorder: 3. Adjustment disorder with mixed disturbance of emotions and conduct: 4. Major depressive disorder: 5. Methamphetamine use disorder, severe, dependence: 6. Bipolar 1 disorder, manic, mild: 7. Alcohol use disorder, severe, dependence: 8. Paranoia: 9. Anxiety: 10. Alcohol dependence: 11. Anxiety disorder, unspecified: 12. Acute psychosis: Plan: This is a 49-year-old male with many past psychiatric admissions and significant history of substance abuse, typically alcohol, methamphetamine and cannabis who presents on a 96-hour hold secondary to recent active addiction with cannabis and methamphetamine leading to him being put on a 96-hour hold due to psychosis and delinquent behavior. Plan: 1. Restart home medications. Patient requesting to restart Suboxone. 2. Encourage individual, group and milieu therapy. 3. Continue every 15 minute checks for safety. 4. Encourage sober living treatment after discharge at the highest level of care to which he is willing to commit. 5. Obtain collateral information. 6. Observe against the backdrop of the 96-hour hold. 7. Patient reporting an interest in returning to [facility]. Patient and staff attempted to call them. We will attempt to call again in the morning to get some input from them as far as restarting that and discharge back to their program. He also reports that he is talk to his and she is really worried about him and that he is open to exploring rehab and other residential treatment options. PDMP PDMP Reviewed: Not Reviewed Involuntary Hold Information 2 Hold Status: Legal Status: 96 Hour Hold Date/Time Hold Expires: 1 06/14/24@1334 96 Hour Hold: 96 Hour Involuntary Admission: Yes Attestations NPU 2 Medical Necessity Statement*: Inpatient hospitalization is medically necessary and the clinically appropriate intervention at this time.? We will monitor/initiate medications and make changes as indicated.? His likely length of stay 1-3 days. Coding Level of Care Code Acute Code for [facility] Fwd Diagnoses Suicidal ideation R45.851 Alcohol use disorder F10.90 Adjustment disorder with mixed disturbance of emotions and conduct F43.25 Major depressive disorder F32.9 Methamphetamine use disorder, severe, dependence F15.20 Bipolar 1 disorder, manic, mild F31.11 Alcohol use disorder, severe, dependence F10.20 Paranoia F22 Anxiety F41.9 Alcohol dependence F10.20 Anxiety disorder, unspecified F41.9 Acute psychosis F23
[2025-04-11 20:09] VITALS: BP 121/78; PULSE 107; RESP 17; TEMP 37; O2SAT 97
[2025-04-12 06:00] VITALS: BP 105/69; PULSE 84; RESP 16; TEMP 37.1; O2SAT 98
[2025-04-12 14:00] VITALS: BP 130/62; PULSE 86; RESP 18; TEMP 37; O2SAT 96
--- NOTE | 2025-04-12 14:36 | W.PM.NPUPNS ---
Subjective NPU Subjective: Patient presented today reporting that things are going okay. He is working with the social work team on possibilities for rehab including [facility] and other options. He reported a history of possibly not staying at [facility] where he was given a bed there but he reports a dedication to his recovery and a plan to follow through with what ever treatment modality we help him establish. We discussed the risks, benefits and alternatives of restarting the buprenorphine he was on at the low dose to 4/1 mg daily which he reports had been effective in assisting him with his abstinence from opiates as well as alcohol. He denies any side effects of his other medications. Mental Status Exam MSE Comments: This is a slender versus underweight/cachectic white male in hospital scrubs with poor grooming and eye contact. No abnormal movements except for psychomotor retardation with resolved significant tremulousness. Cooperative with exam in mild to moderate distress. Speech was decreased rate and volume. Mood described as a little better affect congruent and less subdued. Thought process linear but at times disorganized. Thought content: Patient denied current suicidal or homicidal ideation, there are no delusions reported or but clear paranoid, persecutory and bizarre delusions noted, he denied any auditory or visual hallucinations currently but was having them at admission. Attention and concentration were limited and memory was mostly reliable but none were formally tested. He is alert and oriented x3. Insight, judgment and impulse control are impaired. Vitals/I&O/Wt Last Vital Signs Temp 98.7 F 04/12/25 06:00 Pulse 84 04/12/25 06:00 Resp 16 04/12/25 06:00 BP 105/69 04/12/25 06:00 Pulse Ox 98 04/12/25 06:00 O2 Del Method Room Air 04/12/25 06:00 Weight last 48 hrs Weight 65.034 kg Data NPU 04/07/25 13:25 04/07/25 13:25 A&P Assessment and plan 1. Suicidal ideation: 2. Alcohol use disorder: 3. Adjustment disorder with mixed disturbance of emotions and conduct: 4. Major depressive disorder: 5. Methamphetamine use disorder, severe, dependence: 6. Bipolar 1 disorder, manic, mild: 7. Alcohol use disorder, severe, dependence: 8. Paranoia: 9. Anxiety: 10. Alcohol dependence: 11. Anxiety disorder, unspecified: 12. Acute psychosis: Plan: This is a 49-year-old male with many past psychiatric admissions and significant history of substance abuse, typically alcohol, methamphetamine and cannabis who presents on a 96-hour hold secondary to recent active addiction with cannabis and methamphetamine leading to him being put on a 96-hour hold due to psychosis and delinquent behavior. Plan: 1. Restart home medications. Patient requesting to restart Suboxone. Reviewed situation with him including his history at [facility] and started Suboxone 4/1 mg film daily. 2. Encourage individual, group and milieu therapy. 3. Continue every 15 minute checks for safety. 4. Encourage sober living treatment after discharge at the highest level of care to which he is willing to commit. 5. Obtain collateral information. 6. Observe against the backdrop of the 96-hour hold. 7. Patient reporting an interest in returning to [facility]. Patient and staff attempted to call them. We will attempt to call again in the morning to get some input from them as far as restarting that and discharge back to their program. He also reports that he is talk to his and she is really worried about him and that he is open to exploring rehab and other residential treatment options. PDMP PDMP Reviewed: Not Reviewed Involuntary Hold Information Hold Status: Legal Status: 96 Hour Hold Date/Time Hold Expires: 04/14/25@1334 96 Hour Hold: 96 Hour Involuntary Admission: Yes Attestations NPU Medical Necessity Statement*: Inpatient hospitalization is medically necessary and the clinically appropriate intervention at this time.? We will monitor/initiate medications and make changes as indicated.? His likely length of stay 1-3 days. Coding Level of Care Code Acute Code for [facility] Fwd Diagnoses Suicidal ideation R45.851 Alcohol use disorder F10.90 Adjustment disorder with mixed disturbance of emotions and conduct F43.25 Major depressive disorder F32.9 Methamphetamine use disorder, severe, dependence F15.20 Bipolar 1 disorder, manic, mild F31.11 Alcohol use disorder, severe, dependence F10.20 Paranoia F22 Anxiety F41.9 Alcohol dependence F10.20 Anxiety disorder, unspecified F41.9 Acute psychosis F23
[2025-04-12] MEDS: buprenorphine-naloxone 4-1 mg Film 1 EACH SUBLINGUAL (17:55)
[2025-04-12 20:08] VITALS: BP 141/101; PULSE 87; RESP 18; TEMP 36.6; O2SAT 97
[2025-04-12] MEDS: cetylpyridinium Lozenge 1 EACH MUCOUS MEM (21:24)
[2025-04-13 06:00] VITALS: BP 100/60; PULSE 92; RESP 16; TEMP 36.6; O2SAT 99
--- NOTE | 2025-04-13 09:53 | P.NPUPN_ITS ---
Subjective NPU 2 Subjective: Patient presented today reporting that he is doing all right. We discussed the fact that he seemed to have some ambivalence about treatment after seeming quite invested raising concerns of him repeating patterns from the past that have led to poor outcomes. He continued to recommend and support him doing more aggressive treatment with the hopes of getting to a place where this pattern of hospitalizations or emergency room visits followed by short term treatment followed by return to addictive behavior can be broken. He denied any side effects to the medication. Mental Status Exam 2 MSE Comments: This is a slender versus underweight/cachectic white male in hospital scrubs with poor grooming and eye contact. No abnormal movements except for psychomotor retardation with resolved significant tremulousness. Cooperative with exam in mild to moderate distress. Speech was decreased rate and volume. Mood described as a little better affect congruent and less subdued. Thought process linear but at times disorganized. Thought content: Patient denied current suicidal or homicidal ideation, there are no delusions reported or but clear paranoid, persecutory and bizarre delusions noted, he denied any auditory or visual hallucinations currently but was having them at admission. Attention and concentration were limited and memory was mostly reliable but none were formally tested. He is alert and oriented x3. Insight, judgment and impulse control are impaired. Vitals/I&O/Wt Last Vital Signs Temp 97.9 F 04/13/25 06:00 Pulse 92 04/13/25 06:00 Resp 16 04/13/25 06:00 BP 100/60 04/13/25 06:00 Pulse Ox 99 04/13/25 06:00 O2 Del Method Room Air 04/13/25 06:00 Data NPU 04/07/25 13:25 04/07/25 13:25 A&P Assessment and plan 1. Suicidal ideation: 2. Alcohol use disorder: 3. Adjustment disorder with mixed disturbance of emotions and conduct: 4. Major depressive disorder: 5. Methamphetamine use disorder, severe, dependence: 6. Bipolar 1 disorder, manic, mild: 7. Alcohol use disorder, severe, dependence: 8. Paranoia: 9. Anxiety: 10. Alcohol dependence: 11. Anxiety disorder, unspecified: 12. Acute psychosis: Plan: This is a 49-year-old male with many past psychiatric admissions and significant history of substance abuse, typically alcohol, methamphetamine and cannabis who presents on a 96-hour hold secondary to recent active addiction with cannabis and methamphetamine leading to him being put on a 96-hour hold due to psychosis and delinquent behavior. Plan: 1. Restart home medications. Patient requesting to restart Suboxone. Reviewed situation with him including his history at [facility] and started Suboxone 4/1 mg film daily. 2. Encourage individual, group and milieu therapy. 3. Continue every 15 minute checks for safety. 4. Encourage sober living treatment after discharge at the highest level of care to which he is willing to commit. 5. Obtain collateral information. 6. Observe against the backdrop of the 96-hour hold. 7. Patient reporting an interest in returning to [facility]. Patient and staff attempted to call them. We will attempt to call again in the morning to get some input from them as far as restarting that and discharge back to their program. He also reports that he is talk to his and she is really worried about him and that he is open to exploring rehab and other residential treatment options. PDMP PDMP Reviewed: Not Reviewed Involuntary Hold Information 2 Hold Status: Legal Status: 96 Hour Hold Date/Time Hold Expires: 1 06/14/24@1334 96 Hour Hold: 96 Hour Involuntary Admission: Yes Attestations NPU 2 Medical Necessity Statement*: Inpatient hospitalization is medically necessary and the clinically appropriate intervention at this time.? We will monitor/initiate medications and make changes as indicated.? His likely length of stay 1-3 days. Coding Level of Care Code Acute Code for [facility] Fwd Diagnoses Suicidal ideation R45.851 Alcohol use disorder F10.90 Adjustment disorder with mixed disturbance of emotions and conduct F43.25 Major depressive disorder F32.9 Methamphetamine use disorder, severe, dependence F15.20 Bipolar 1 disorder, manic, mild F31.11 Alcohol use disorder, severe, dependence F10.20 Paranoia F22 Anxiety F41.9 Alcohol dependence F10.20 Anxiety disorder, unspecified F41.9 Acute psychosis F23
--- NOTE | 2025-04-13 11:51 | PC.NURSE ---
Pt. moved to the [place] side d/t no fault of his own. Needed to rearrange beds.
[2025-04-13 14:00] VITALS: BP 114/71; PULSE 77; RESP 15; TEMP 36.6; O2SAT 96
[2025-04-13 19:41] VITALS: BP 117/58; PULSE 88; RESP 17; TEMP 36.9; O2SAT 96
[2025-04-14 06:00] VITALS: BP 121/80; PULSE 93; RESP 16; TEMP 36.7; O2SAT 99
[2025-04-14] MEDS: buprenorphine-naloxone 4-1 mg Film 1 EACH SUBLINGUAL (07:40)
[2025-04-14 13:50] VITALS: BP 119/76; PULSE 90; RESP 16; TEMP 36.6; O2SAT 98
[2025-04-14 16:21] VITALS: BP 119/76; PULSE 90; RESP 16; TEMP 36.7; O2SAT 98
== END 2025-04-14 17:49 | disposition home or self-care (01) | DRG 753 ==
LOC: ER 14:51 → NP 16:37
PROVIDERS: Admitting Provider Psychiatry & Neurology Psychiatry; Emergency Provider Emergency Medicine; PCP Family Medicine; Visit Provider Psychiatry & Neurology Psychiatry
DX: F31.11 Bipolar disorder, current episode manic without psychotic features, mild (principal); F43.25 Adjustment disorder with mixed disturbance of emotions and conduct; F15.20 Other stimulant dependence, uncomplicated; R45.851 Suicidal ideations; F10.20 Alcohol dependence, uncomplicated; F22 Delusional disorders; F41.9 Anxiety disorder, unspecified; F23 Brief psychotic disorder; R64 Cachexia; Z68.21 Body mass index [BMI] 21.0-21.9, adult; Z62.819 Personal history of unspecified abuse in childhood
CPT/HCPCS: 36415; 80053; 80306; 80307; 81001; 84443; 85025; 93005; 97150; 97165; 99285; J0573; J9999

== ENCOUNTER 2025-04-23 04:30 | Emergency (ER) | payer MEDICAID, SELFPAY ==
[2023-12-27 15:20] VITALS: BP 128/98; BMI 17.0
--- OUTSIDE RECORDS SUMMARY | 2025-04-23 04:35 | XMS_ITS | Encounter Summary ---
Author Organization [facility] Address [address] [place] [address] Care Team Providers Care Grinding Machine Operator Name Role Phone Fidelina Cali MD Primary Care Provider Encounter Details Date Type Department Care Team (Late st Contact Info) Description 04/20/2025 External Device Data [facility]STRACTION Provider, Abstract [...] on file Legal Sex Male 1:52 PM PATIENT ACCOUNT ANALYST Gender Identity Not on file Sexual Orientation Not on file documented as of this encounter Plan of Treatment Upcoming Encounters Date Type Department Care Team (Late st Contact Info) Description 06/07/2025 3:20 PM PATIENT ACCOUNT ANALYST Office Visit [facility] Medicine [address] [phone] Fidelina Cali MD [facility] [address] [phone] documented as of this encounter [...] Total Score: 6 06/08/19 23 12:17 PM PATIENT ACCOUNT ANALYST documented as of this encounter Care Teams Grinding Machine Operator Relationship Specialty Start Date End Date Fidelina Cali MD [address] [phone] PCP - General Family Practice 04/20/22 documented as of this encounter
--- OUTSIDE RECORDS SUMMARY | 2025-04-23 04:35 | XMS_ITS | Encounter Summary ---
Author Organization [facility] Address [address] [place] [address] Care Team Providers Care Shoe Stock Associate Name Role Phone Fidelina Cali MD Primary Care Provider [phone] Encounter Details Date Type Department Care Team [...] on file Legal Sex Male 1:52 PM SCIENCE MANAGER Gender Identity Not on file Sexual Orientation Not on file documented as of this encounter Plan of Treatment Upcoming Encounters Date Type Department Care Team (Late st Contact Info) Description 06/07/2025 3:20 PM SCIENCE MANAGER Office Visit [facility] Medicine [address] [phone] Fidelina Cali MD [facility] [address] [phone] documented as of this encounter [...] Total Score: 6 06/08/19 23 12:17 PM SCIENCE MANAGER documented as of this encounter Care Teams Shoe Stock Associate Relationship Specialty Start Date End Date Fidelina Cali MD [address] [phone] PCP - General Family Practice 04/20/22 documented as of this encounter
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
[2025-04-23 04:44] VITALS: BP 146/106; PULSE 122; RESP 20; TEMP 36.6; O2SAT 98; BMI 25.8
[2025-04-23 04:55] VITALS: BP 146/106; PULSE 90; RESP 18; TEMP 36.6; O2SAT 98
--- NOTE | 2025-04-23 05:08 | ED_ITS ---
HPI - General Adult General: Chief complaint: General Medical Stated complaint: hard to breathe Time Seen by Provider: 04/23/25 04:43 History of Present Illness: Patient is a 49-year-old male with a history of polysubstance use, including alcohol, methamphetamines, heroin, fentanyl who presents seeking assistance for withdrawal and detoxification. He reports a long-standing struggle with substance abuse, expressing a desire to quit and enter rehabilitation. He last had a few drinks of alcohol prior to midnight, does endorse smoking methamphetamines a few hours ago. He is due to be transported to an alcohol detox center in [facility] at 8 AM this morning and mostly wants a place to stay until then, has spent the night in the [place] and most of his belongings are wet. currently denies any physical complaints. No recent fevers, cough, chest pain, syncope, abdominal pain, NVD. Denies any SI or HI. Related Data Previous Rx's ?Medication ?Instructions ?Recorded albuterol sulfate 90 mcg/actuation 2 puff inhalation Q 4H PRN 06/25/24 aerosol inhaler (Ventolin HFA) shortness of breath or wheezing #8.5 grams hydroxyzine pamoate 25 mg capsule 50 mg (2 x 25 mg) PO Q6H PRN 04/14/25 Anxiety 30 days #120 caps lurasidone 40 mg tablet 40 mg PO QPM 30 days #30 tab s 04/14/25 olanzapine 5 mg disintegrating 5 mg PO DAILY PRN 04/14 tablet Agitation/Psychosis 30 days #30 tabs pantoprazole 40 mg tablet,delayed 40 mg PO BEDTIME 30 days #30 tabs 04/14/25 release propranolol 10 mg tablet 10 mg PO BID 30 days #60 tab s 04/14/25 quetiapine 300 mg tablet 300 mg PO BEDTIME 30 days #3 0 tabs 04/14/25 sucralfate 1 gram tablet 1 g PO QID 30 days #120 tabs 04/14/25 tamsulosin 0.4 mg capsule 0.4 mg PO DAILY 30 days #30 caps 04/14/25 trazodone 50 mg tablet 50 mg PO BEDTIME PRN Sleep 3 0 days 04/14/25 #30 tabs Allergies Allergy/AdvReac Type Severity Reaction Status Date / Time No Known Allergies Allergy Verified 09/05/24 00:33 Review of Systems General: Reports: 10 or more systems reviewed and unremarkable except in HPI and below PFSH ED PFSH: Medical History (Updated 04/23/25 @ 05:15 by Gurdeep Bryson DO) Methamphetamine abuse Alcohol dependence Anxiety Psychiatric care Atrial flutter Atrial fibrillation Methamphetamine abuse -UDS positive for amphetamines/THC Bipolar 1 disorder, manic, mild Depressive disorder, not elsewhere classified Adjustment disorder with mixed disturbance of emotions and conduct Alcohol use disorder -Has known history of alcohol abuse&DT Surgical History H/O hernia repair History of appendectomy Family History Other Alcoholism /alcohol abuse Social History Smoking and tobacco/nicotine status: never used tobacco/nicotine Quit status (tobacco/nicotine): has tried quititng Number of times tried to quit tobacco: 4 Second hand smoke exposure: Yes Alcohol intake: current Substance/Drug Use: current Current gender identity: Male Physical Exam Narrative: EXAM NARRATIVE: Patient mildly anxious. Otherwise well-appearing, vital signs stable on my evaluation, afebrile, no acute distress. GCS 15, motor and sensation equal and symmetric in all 4 extremities, pupils equal round reactive, no nystagmus, not diaphoretic. Normal sinus rhythm with no leg swelling, good cap refill, 2+ pulses throughout. Breathing comfortably on room air, saturating well. Course Vital Signs: Vital signs: Vital Signs Temperature 97.8 F 04/23/25 04:55 Pulse Rate 90 04/23/25 04:55 Respiratory Rate 18 04/23/25 04:55 Blood Pressure 146/106 04/23/25 04:55 Pulse Oximetry 98 04/23/25 04:55 [facility] - General Adult Medical Decision Making -ddx: Alcohol withdrawal, stimulant abuse, dehydration, homelessness - Patient with mild signs of alcohol withdrawal, mildly anxious and tremulous, was mildly tachycardic, that had resolved on my evaluation, no acute psychosis, not diaphoretic, pupils equal round reactive, no tongue fasciculations, normal mental status. Might have had mild sympathomimetic toxidrome but not to the point of causing him any symptoms at this time or affecting his overall status, mostly he is just wanting a place to stay until he goes for detox in a few hours, discussed with the patient, has had Ativan many times before and does not like the way he feels, talked about and we will trial prophylactic oral dose of phenobarbital for long-acting treatment of his alcohol withdrawal until he can get to rehab, patient given food was able to be discharged with plans for his detox later this morning, in stable condition, vital signs normalized, no deterioration in neurostatus, no signs of severe worsening withdrawal. No radiology studies performed this visit Discharge Plan Discharge Patient Disposition: Home Clinical Impression: Alcohol withdrawal Condition: Stable Prescriptions: No Action albuterol sulfate [Ventolin HFA] 90 mcg/actuation HFA aerosol inhaler 2 puff inhalation Q4H PRN (Reason: shortness of breath or wheezing) Qty: 8.5 0RF trazodone 50 mg Tablet 50 mg PO BEDTIME PRN (Reason: Sleep) 30 Days Qty: 30 1RF olanzapine 5 mg Tablet,Disintegrating 5 mg PO DAILY PRN (Reason: Agitation/Psychosis) 30 Days Qty: 30 1RF hydroxyzine pamoate 25 mg Capsule 50 mg PO Q6H PRN (Reason: Anxiety) 30 Days Qty: 120 1RF quetiapine 300 mg tablet 300 mg PO BEDTIME 30 Days Qty: 30 1RF sucralfate 1 gram tablet 1 g PO QID 30 Days Qty: 120 1RF propranolol 10 mg tablet 10 mg PO BID 30 Days Qty: 60 1RF tamsulosin 0.4 mg capsule 0.4 mg PO DAILY 30 Days Qty: 30 1RF pantoprazole 40 mg tablet,delayed release (DR/EC) 40 mg PO BEDTIME 30 Days Qty: 30 1RF lurasidone 40 mg tablet 40 mg PO QPM 30 Days Qty: 30 1RF Discharge Orders: Discharge ED (Routine); Ordered 04/23/25 Ordered By: Gurdeep Bryson Referrals: Chayito Cali MD [Primary Care Provider, Family Practice] Patient Instructions: Opioid Safety, Pain Management, Patient Portal & Alexander Instructions Activity Restrictions/Additional Instructions: You were seen for your alcohol withdrawal, you were given a dose of Zofran and phenobarbital which should act for a few hours to help any symptoms of withdrawal until you get to the detox center. Return to the ED with severe worsening of your symptoms, severe confusion, vomiting, fevers, any other emergent concerns. Print Language: Divehi Coding Level of Care Code ED Minibus Driver for Camila Alvares
[2025-04-23] MEDS: ondansetron hcl ODT 4 mg Tab PO (06:30)
[2025-04-23 06:57] VITALS: BP 161/75; PULSE 64; O2SAT 94
== END 2025-04-23 06:59 | disposition home or self-care (01) ==
PROVIDERS: Emergency Provider Student in an Organized Health Care Education/Training Program; PCP Family Medicine
DX: F10.239 Alcohol dependence with withdrawal, unspecified (principal); Z87.891 Personal history of nicotine dependence
CPT/HCPCS: 99283; J9999; Q0162

== ENCOUNTER 2025-04-25 01:54 | Emergency (ER) | payer MEDICAID, SELFPAY ==
[2023-12-27 15:20] VITALS: BP 128/98; BMI 17.0
[2025-04-25 01:54] VITALS: BMI 25.8
--- OUTSIDE RECORDS SUMMARY | 2025-04-25 01:58 | XMS_ITS | Encounter Summary ---
Author Organization [facility] Address [address] [place] [address] Care Team Providers Care Director [employer] Name Role Phone Fidelina Cali MD Primary [...] on file Legal Sex Male 1:52 PM AUTO CLUTCH REBUILDER Gender Identity Not on file Sexual Orientation Not on file documented as of this encounter Plan of Treatment Upcoming Encounters Date Type Department Care Team (Late st Contact Info) Description 06/07/2025 3:20 PM AUTO CLUTCH REBUILDER Office Visit [facility] [address] [address] Fidelina Cali MD [facility] [address] [phone] documented as of this encounter [...] Total Score: 6 06/08/19 23 12:17 PM AUTO CLUTCH REBUILDER documented as of this encounter Care Teams Director [employer] Relationship Specialty Start Date End Date Fidelina Cali MD [address] [phone] PCP - General Family Practice 04/20/22 documented as of this encounter
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
--- OUTSIDE RECORDS SUMMARY | 2025-04-25 01:58 | XMS_ITS | Encounter Summary ---
Author Organization [facility] Address 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 Gender Identity Not on file Sexual Orientation Not on file documented as of this encounter Plan of Treatment Upcoming Encounters Date Type Department Care Team (Late st Contact Info) Description 06/07/2025 3:20 PM ENGINEERING DESIGN SUPERVISOR Office Visit [facility] [address] [phone] Fidelina Cali MD [facility] [address] [phone] documented as of this encounter [...] Total Score: 6 06/08/19 23 12:17 PM ENGINEERING DESIGN SUPERVISOR documented as of this encounter Care Teams Shipping Clerk Crating Relationship Specialty Start Date End Date Fidelina Cali MD [address] [phone] PCP - General Family Practice 04/20/22 documented as of this encounter
[2025-04-25 02:03] VITALS: BP 118/89; PULSE 153; RESP 20; TEMP 36.8; O2SAT 96
[2025-04-25 02:16] LABS: Hematocrit 41.8 % (37-53); Hemoglobin 13.40 g/dL (11.27-16.99); Mean Corpuscular HGB Conc 32.1 g/dL (30-55); Mean Corpuscular Hemoglobin 34.7 pg (27-33); Mean Corpuscular Volume 108.3 fl (82-101); Nucleated Red Blood Cells % 0 %; Platelet Count 374 10^3/cmm (157-399); Red Blood Count 3.86 10^6/uL (3.85-5.65); White Blood Count 8.55 10^3/uL (3.29-11.43)
[2025-04-25 02:29] LABS: Alanine Aminotransferase 20 U/L (0-41); Albumin Level 3.9 g/dL (3.5-5.2); Alkaline Phosphatase 109 U/L (40-130); Aspartate Amino Transferase 27 U/L (0-40); Blood Urea Nitrogen 12 mg/dL (6-20); Calcium 8.7 mg/dL (8.5-10.5); Carbon Dioxide 27 mmol/L (22-29); Chloride 99 mmol/L (98-107); Globulin 3.1 g/dL (1.3-4.6); Glucose 93 mg/dL (65-115); Osmolality Calculated 283 mOsm/kg (285-295); Sodium 137 mmol/L (136-145); Total Protein 7.0 g/dL (6.6-8.7)
[2025-04-25 02:31] LABS: Anion Gap 15.3 (5-19); Potassium 4.3 mmol/L (3.5-5.1)
[2025-04-25] MEDS: ondansetron 2 mg/ML SDV 2 mL 4 MG IVP (03:10)
--- NOTE | 2025-04-25 03:53 | W.ED.ALCOHOL ---
HPI - Alcohol General: Chief Complaint: Alcohol Stated Complaint: ETOH Time Seen by Provider: 04/25/25 01:58 History of Present Illness: Patient is a 49-year-old male with past medical history of substance use, COPD who presents to the ED by police for alcohol intoxication. Does not disclose the amount of alcohol he drank but states he has been feeling lightheaded and dizzy for the last few hours. Denies any vomiting, diarrhea, fevers. Denies any trauma tonight, no bleeding. States that he had a headache with some tingling that has since subsided. Endorses no SI or HI at this time. Related Data Previous Rx's ?Medication ?Instructions ?Recorded albuterol sulfate 90 mcg/actuation 2 puff inhalation Q4H PRN 06/25/24 aerosol inhaler (Ventolin HFA) shortness of breath or wheezing #8.5 grams hydroxyzine pamoate 25 mg capsule 50 mg (2 x 25 mg) PO Q6H PRN 04/14/25 Anxiety 30 days #120 caps lurasidone 40 mg tablet 40 mg PO QPM 30 days #30 tabs 04/14/25 olanzapine 5 mg disintegrating 5 mg PO DAILY PRN 04/14/25 tablet Agitation/Psychosis 30 days #30 tabs pantoprazole 40 mg tablet,delayed 40 mg PO BEDTIME 30 days #30 tabs 04/14/25 release propranolol 10 mg tablet 10 mg PO BID 30 days #60 tabs 04/14/25 quetiapine 300 mg tablet 300 mg PO BEDTIME 30 days #30 tabs 04/14/25 sucralfate 1 gram tablet 1 g PO QID 30 days #120 tabs 04/14/25 tamsulosin 0.4 mg capsule 0.4 mg PO DAILY 30 days #30 caps 04/14/25 trazodone 50 mg tablet 50 mg PO BEDTIME PRN Sleep 30 days 04/14/25 #30 tabs Allergies Allergy/AdvReac Type Severity Reaction Status Date / Time No Known Allergies Allergy Verified 09/05/24 00:33 Review of Systems Neuro: Reports: headache(s), numbness in extremities and dizziness [facility] ED PFSH: Medical History (Updated 04/25/25 @ 04:53 by Gurdeep Bryson DO) Methamphetamine abuse Alcohol dependence Anxiety Psychiatric care Atrial flutter Atrial fibrillation Methamphetamine abuse -UDS positive for amphetamines/THC Bipolar 1 disorder, manic, mild Depressive disorder, not elsewhere classified Adjustment disorder with mixed disturbance of emotions and conduct Alcohol use disorder -Has known history of alcohol abuse&DT Surgical History H/O hernia repair History of appendectomy Family History Other Alcoholism /alcohol abuse Social History Smoking and tobacco/nicotine status: never used tobacco/nicotine Quit status (tobacco/nicotine): has tried quititng Number of times tried to quit tobacco: 4 Second hand smoke exposure: Yes Alcohol intake: current Substance/Drug Use: current Current gender identity: Male Physical Exam Narrative: EXAM NARRATIVE: Patient mildly clinically intoxicated, afebrile, vital stable on arrival, nontoxic, no acute distress. Pupils sluggish but equal and reactive, moving all 4 extremities symmetrically and spontaneously, able to ambulate without ataxia. Breathing comfortably on room air, saturating well, no adventitious lung sounds, normal sinus rhythm with no murmurs, no leg swelling. Course Vital Signs: Vital signs: Vital Signs Temperature 98.2 F 04/25/25 02:03 Pulse Rate 116 H 04/25/25 05:32 Respiratory Rate 20 H 04/25/25 02:03 Blood Pressure 95/54 04/25/25 05:32 Pulse Oximetry 98 04/25/25 05:32 Oxygen Delivery Me thod Room Air 04/25/25 05:32 MDM - Alcohol Medical Decision Making -ddx: Intoxication, dehydration, electrolyte abnormality, tension headache, migraine -patient mildly clinically intoxicated but otherwise well-appearing, well-known to this emergency department, mild headache with some tingling that had resolved, has been staying in the [facility], will evaluate with basic labs, treat headache with Toradol, Zofran and fluids and reassess. -patient with completely UMANA and dizziness improvement after above meds, basic labs without concern for acute pathology needing further shea. patient became clinically sober after a couple of hours, vitals normalized, he PO'd amnd ambulated successfully and was dc'd in stable condition with strict return precautions given. Lab Data 04/25/25 02:07 04/25/25 02:07 Laboratory Results WBC 8.55 10^3/uL (3.29-11.43) 04/25/25 02:07 RBC 3.86 10^6/uL (3.85-5.65) 04/25/25 02:07 Hgb 13.40 g/dL (11.27-16.99) 04/25/25 02:07 Hct 41.8 % (37-53) 04/25/25 02:07 MCV 108.3 fl (82-101) H 04/25/25 02:07 MCH 34.7 pg (27-33) H 04/25/25 02:07 MCHC 32.1 g/dL (30-55) 04/25/25 02:07 RDW 13.3 % (12.1-15.1) 04/25/25 02:07 Plt Count 374 10^3/cmm (157-399) 04/25/25 02:07 MPV 9.7 fL (7.4-10.4) 04/25/25 02:07 Neut % (Auto) 57.5 % 04/25/25 02:07 Lymph % (Auto) 28.5 % 04/25/25 02:07 Hamblen % (Auto) 13.2 % 04/25/25 02:07 Eos % (Auto) 0.1 % 04/25/25 02:07 Baso % (Auto) 0.5 % 04/25/25 02:07 Neut # (Auto) 4.91 10^3/uL (1.8-7.7) 04/25/25 02:07 Lymph # (Auto) 2.4 10^3/uL (0.8-4.8) 04/25/25 02:07 Hamblen # (Auto) 1.1 10^3/uL (0.2-0.9) H 04/25/25 02:07 Eos # (Auto) 0.0 10^3/uL (0.0-0.8) 04/25/25 02:07 Baso # (Auto) 0.0 10^3/uL (0.0-0.1) 04/25/25 02:07 Nucleated RBC % (auto) 0 % 04/25/25 02:07 Nucleated RBCs # 0.0 /100WBC 04/25/25 02:07 Sodium 137 mmol/L (136-145) 04/25/25 02:07 Potassium 4.3 mmol/L (3.5-5.1) 04/25/25 02:07 Chloride 99 mmol/L (98-107) 04/25/25 02:07 Carbon Dioxide 27 mmol/L (22-29) 04/25/25 02:07 Anion Gap 15.3 (5-19) 04/25/25 02:07 BUN 12 mg/dL (6-20) 04/25/25 02:07 Creatinine 0.7 mg/dL (0.7-1.2) 04/25/25 02:07 GFR Calculation 120.4 mL/min (90-130) 04/25/25 02:07 Glucose 93 mg/dL (65-115) 04/25/25 02:07 Calculated Osmolality 283 mOsm/kg (285-295) L 04/25/25 02:07 Calcium 8.7 mg/dL (8.5-10.5) 04/25/25 02:07 Total Bilirubin 0.7 mg/dL (0.15-1.2) 04/25/25 02:07 AST 27 U/L (0-40) 04/25/25 02:07 ALT 20 U/L (0-41) 04/25/25 02:07 Alkaline Phosphatase 109 U/L (40-130) 04/25/25 02:07 Total Protein 7.0 g/dL (6.6-8.7) 04/25/25 02:07 Albumin 3.9 g/dL (3.5-5.2) 04/25/25 02:07 Globulin 3.1 g/dL (1.3-4.6) 04/25/25 02:07 No radiology studies performed this visit Discharge Plan Discharge Patient Disposition: Home Clinical Impression: Intoxication, Dehydration Condition: Stable Prescriptions: No Action albuterol sulfate [Ventolin HFA] 90 mcg/actuation HFA aerosol inhaler 2 puff inhalation Q4H PRN (Reason: shortness of breath or wheezing) Qty: 8.5 0RF trazodone 50 mg Tablet 50 mg PO BEDTIME PRN (Reason: Sleep) 30 Days Qty: 30 1RF olanzapine 5 mg Tablet,Disintegrating 5 mg PO DAILY PRN (Reason: Agitation/Psychosis) 30 Days Qty: 30 1RF hydroxyzine pamoate 25 mg Capsule 50 mg PO Q6H PRN (Reason: Anxiety) 30 Days Qty: 120 1RF quetiapine 300 mg tablet 300 mg PO BEDTIME 30 Days Qty: 30 1RF sucralfate 1 gram tablet 1 g PO QID 30 Days Qty: 120 1RF propranolol 10 mg tablet 10 mg PO BID 30 Days Qty: 60 1RF tamsulosin 0.4 mg capsule 0.4 mg PO DAILY 30 Days Qty: 30 1RF pantoprazole 40 mg tablet,delayed release (DR/EC) 40 mg PO BEDTIME 30 Days Qty: 30 1RF lurasidone 40 mg tablet 40 mg PO QPM 30 Days Qty: 30 1RF Discharge Orders: Discharge ED (Routine); Ordered 04/25/25 Ordered By: Gurdeep Bryson Referrals: Chayito Cali MD [Primary Care Provider, [facility]] Patient Instructions: Alcohol Intoxication (ED), Alcohol Withdrawal (ED), Opioid Safety, Pain Management, Patient Portal & Alexander Instructions Activity Restrictions/Additional Instructions: You were seen for your lightheadedness and headache, you were evaluated with labs which were ultimately reassuring, you improved with time, fluids and medication and were deemed stable to be discharged home. Return to the ED with severe worsening of your headache, continuous vomiting, fevers, difficulties breathing, any other emergent concerns. Print Language: Chinese Coding Level of Care Code ED Electrocardiograph Operator for Camila Alvares
[2025-04-25 05:32] VITALS: BP 95/54; PULSE 116; O2SAT 98
== END 2025-04-25 05:55 | disposition home or self-care (01) ==
PROVIDERS: Emergency Provider Student in an Organized Health Care Education/Training Program; PCP Family Medicine
DX: F10.129 Alcohol abuse with intoxication, unspecified (principal); Y90.9 Presence of alcohol in blood, level not specified; E86.0 Dehydration
CPT/HCPCS: 36415; 80053; 85025; 96374; 96375; 99284; J1885; J2405; J7120

== ENCOUNTER 2025-05-04 00:10 | Inpatient (IN) | payer MEDICAID, SELFPAY ==
[2023-12-27 15:20] VITALS: BP 128/98; BMI 17.0
[2025-05-04] VITALS (140 sets, daily range): BP systolic 72–144; BP diastolic 56–97; PULSE 68–160; RESP 5–36; TEMP 36.3–36.9; O2SAT 79–100; BMI 20.5
--- OUTSIDE RECORDS SUMMARY | 2025-05-04 00:18 | XMS_ITS | Encounter Summary ---
Author Organization [facility] Address [address] [place] [address] Care Team Providers Care Manager Call Center Name Role Phone Fidelina Cali MD Primary Care Provider [phone] Encounter Details Date Type Department Care Team ([facility] Contact Info) Description 05/03/2025 Orders Only [facility] [place] Health Information Management [place] [address] [place] [address] Provider, Abstract NO ADDRESS ON FILE Social [...] on file Legal Sex Male 1:52 PM SALES SUPPORT TECHNICIAN Gender Identity Not on file Sexual Orientation Not on file documented as of this encounter Plan of Treatment Upcoming Encounters Date Type Department Care Team (Late Contact Info) Description 06/07/2025 3:20 PM SALES SUPPORT TECHNICIAN Office Visit [facility] [place] Family Medicine [address] [address] Fidelina Cali MD [address] [phone] documented as of this encounter Goals Goal Patient Goal Type Associated Problems Recent Progress Patient-Stated? Author Patient Stated General Yes Leonora Valdes Note: 07/03/2022 Today's SMART Goal: Patient will contact Home State Medicaid to discuss coverage for medication Within the next week. documented as of this encounter Procedures Procedure Name Priority Date/Time Associated Diagnosis Comments COMPREHENSIVE METABOLIC PANEL Routine 04/25/2025 12:03 PM SALES SUPPORT TECHNICIAN documented in this encounter Results * COMPREHENSIVE METABOLIC PANEL (04/25/2025 12:03 PM SALES SUPPORT TECHNICIAN) Blood us Abstract Provider CHEMISTRY ORDERABLES Final Res ult documented in this encounter Visit Diagnoses Not on filedocumented in this encounter Additional Health Concerns Assessment Noted Time PHQ-9 Depression Total Score: 6 06/08/19 23 12:17 PM SALES SUPPORT TECHNICIAN documented as of this encounter Care Teams Manager Call Center Relationship Specialty Start Date End Date Fidelina Cali MD [address] [facility] [address] [place] [address] PCP - General Family Practice 04/20/22 documented as of this encounter
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
--- NOTE | 2025-05-04 00:41 | PC.NURSE ---
Brought patient snacks to improve blood glucose reading of 50. copy reader aware. Patient alert and vitals stable.
--- NOTE | 2025-05-04 02:25 | ED_ITS ---
HPI - General Adult 2 General: Chief complaint: General Medical Stated complaint: Hands tingeling and burning, Face on rt side Time Seen by Provider: 05/04/25 01:20 History of Present Illness: 49-year-old male presenting to the emerg ency department with complaints of diffuse weakness and shaking that he attributes to alcohol and methamphetamine use, he reportedly described right-sided facial numbness to triage that he did not describe to me, he is a poor historian and is intermittently moving while supine in the stretcher, he is verbally responsive and his shaking is markedly worsened after I started talking to him as compared to when I walked into the room where there was minimal to no abnormal movements identified Related Data Previous Rx's ?Medication ?Instructions ?Recorded albuterol sulfate 90 mcg/actuation 2 puff inhalation Q 4H PRN 06/25/24 aerosol inhaler (Ventolin HFA) shortness of breath or wheezing #8.5 grams hydroxyzine pamoate 25 mg capsule 50 mg (2 x 25 mg) PO Q6H PRN 04/14/25 Anxiety 30 days #120 caps lurasidone 40 mg tablet 40 mg PO QPM 30 days #30 tab s 04/14/25 olanzapine 5 mg disintegrating 5 mg PO DAILY PRN 04/14 tablet Agitation/Psychosis 30 days #30 tabs pantoprazole 40 mg tablet,delayed 40 mg PO BEDTIME 30 days #30 tabs 04/14/25 release propranolol 10 mg tablet 10 mg PO BID 30 days #60 tab s 04/14/25 quetiapine 300 mg tablet 300 mg PO BEDTIME 30 days #3 0 tabs 04/14/25 sucralfate 1 gram tablet 1 g PO QID 30 days #120 tabs 04/14/25 tamsulosin 0.4 mg capsule 0.4 mg PO DAILY 30 days #30 caps 04/14/25 trazodone 50 mg tablet 50 mg PO BEDTIME PRN Sleep 3 0 days 04/14/25 #30 tabs Allergies Allergy/AdvReac Type Severity Reaction Status Date / Time No Known Allergies Allergy Verified 05/04/25 00:30 [facility] ED 2 PFSH: Medical History Methamphetamine abuse Alcohol dependence Anxiety Psychiatric care Atrial flutter Atrial fibrillation Methamphetamine abuse -UDS positive for amphetamines/THC Bipolar 1 disorder, manic, mild Depressive disorder, not elsewhere classified Adjustment disorder with mixed disturbance of emotions and conduct Alcohol use disorder -Has known history of alcohol abuse&DT Surgical History H/O hernia repair History of appendectomy Family History Other Alcoholism /alcohol abuse Social History Smoking and tobacco/nicotine status: never used tobacco/nicotine Quit status (tobacco/nicotine): has tried quititng Number of times tried to quit tobacco: 4 Second hand smoke exposure: Yes Alcohol intake: current Substance/Drug Use: current Current gender identity: Male Physical Exam 2 Narrative: EXAM NARRATIVE: Gen: A&Ox4, no acute distress, nontoxic appearing HEENT: Normocephalic, atraumatic, no scleral icterus, external ears normal, dry mucous membranes Neck: Supple, full range of motion, no observable masses Lungs: No Respiratory distress, Lungs clear to auscultation bilaterally no rales, rhonchi, wheezing CV: Tachycardic, regular rhythm, no murmur, no pitting edema to lower extremities bilaterally Abdomen: Soft, nondistended, nontender to palpation MSK: No joint swelling, FROM all 4 extremities Skin: No rashes, petechiae, lesions. Normal color per patient. Neuro: Patient is awake and alert, oriented x 4, sensation and strength grossly intact all 4 extremities, facial movements symmetric, facial sensation intact bilaterally, no facial droop, no nasolabial flattening or lid lag, no slurred speech, patient does have a volitional tremor that was minimal when I walked into the room but markedly increased when I identified myself as the physician and started obtaining a history and physical examination, no tongue fasciculations during neurologic examination Psych: Appropriate for situation. Course 2 Reevaluation(s): Reevaluation #1: Per pharmacy, we are unable to make a banana bag for infusion because there is no in-house pharmacy in this hospital at night, telemetry pharmacy was called to see if bedside ED RN could self mix a banana bag and was told no. Will give additional liter of lactated ringer and IV thiamine Time: 03:44 Reevaluation #2: Patient currently on diltiazem at 10 mg/h, clinically patient is perfusing well peripherally, MAP of 80, heart rate still persistently in the 160s, he did have a transient improvement in his heart rate down to a variable a flutter in the 110-120 range for a few minutes with stacking of the IV diltiazem bolus second dose and initiation of the diltiazem drip but is currently now back to a intractable tachycardia, will continue to uptitrate diltiazem drip and if max would consider cardiology input to start second agent, currently patient does not meet criteria for emergent cardioversion, he has a low [id number] per my review of his chart and does not appear to empirically need anticoagulation, will defer to inpatient team, plan for admission for further management Time: :25 Consultations: Consultation #1: Spoke with Dr. Haq of hospital medicine for admission at this time, he will come see the patient to admit Time: :25 Vital Signs: Vital signs: Vital Signs Temperature 97.7 F 05/04/25 00:14 Pulse Rate 159 H 05/04/25 05:00 Respiratory Rate 20 H 05/04/25 00:14 Blood Pressure 116/92 05/04/25 05:00 Pulse Oximetry 90 05/04/25 05:00 Oxygen Delivery Me thod Room Air 05/04/25 05:00 MDM - General Adult Medical Decision Making 49-year-old male medical history significant for bipolar, alcohol and methamphetamine abuse, A-fib RVR, COPD, presenting to the emergency department with report of right sided facial numbness, active meth and alcohol use, requesting alcohol detox. His tremor does appear somewhat volitional although patient is markedly tachycardic in the emergency department and appears intoxicated, plan for EKG rule out recurrent rapid A-fib, IV fluids, labs to assess for electrolyte derangements or any evidence of any acute medical emergency condition such as acute renal failure dangerous metabolic/electrolyte derangements, reassess for disposition. after monitoring. Patient was noted to be hypoglycemic to 50 in triage was given soda and sandwich which she tolerated and repeat fingerstick in the ER was 97. Lab Data Labs showing mild anemia 12.1, no leukocytosis, normal electrolytes, normal creatinine, troponin minimally elevated at 16, alcohol negative 05/04/25 03:43 05/04/25 03:43 Laboratory Results WBC 6.29 10^3/uL (3.29-11.43) 05/04/25 03:43 RBC 3.41 10^6/uL (3.85-5.65) L 05/04/25 03:43 Hgb 12.10 g/dL (11.27-16.99) 05/04/25 03:43 Hct 36.6 % (37-53) L 05/04/25 03:43 MCV 107.3 fl (82-101) H 05/04/25 03:43 MCH 35.5 pg (27-33) H 05/04/25 03:43 MCHC 33.1 g/dL (30-55) 05/04/25 03:43 RDW 13.7 % (12.1-15.1) 05/04/25 03:43 Plt Count 262 10^3/cmm (157-399) 05/04/25 03:43 MPV 9.5 fL (7.4-10.4) 05/04/25 03:43 Neut % (Auto) 54.7 % 05/04/25 03:43 Lymph % (Auto) 29.3 % 05/04/25 03:43 [facility] [place] % (Auto) 13.5 % 05/04/25 03:43 Eos % (Auto) 1.9 % 05/04/25 03:43 Baso % (Auto) 0.3 % 05/04/25 03:43 Neut # (Auto) 3.44 10^3/uL (1.8-7.7) 05/04/25 03:43 Lymph # (Auto) 1.8 10^3/uL (0.8-4.8) 05/04/25 03:43 [facility] [place] [facility] # (Auto) 0.9 10^3/uL (0.2-0.9) 05/04/25 03:43 Eos # (Auto) 0.1 10^3/uL (0.0-0.8) 05/04/25 03:43 Baso # (Auto) 0.0 10^3/uL (0.0-0.1) 05/04/25 03:43 Nucleated RBC % (auto) 0 % 05/04/25 03:43 Nucleated RBCs # 0.0 /100WBC 05/04/25 03:43 Sodium 138 mmol/L (136-145) 05/04/25 03:43 Potassium 3.8 mmol/L (3.5-5.1) 05/04/25 03:43 Chloride 102 mmol/L (98-107) 05/04/25 03:43 Carbon Dioxide 24 mmol/L (22-29) 05/04/25 03:43 Anion Gap 15.8 (5-19) 05/04/25 03:43 BUN 18 mg/dL (6-20) 05/04/25 03:43 Creatinine 0.7 mg/dL (0.7-1.2) 05/04/25 03:43 GFR Calculation 120.4 mL/min (90-130) 05/04/25 03:43 Glucose 94 mg/dL (65-115) 05/04/25 03:43 POC Glucose 94 mg/dL (70-110) 05/04/25 03:33 Calculated Osmolality 288 mOsm/kg (285-295) 05/04/25 03:43 Calcium 8.0 mg/dL (8.5-10.5) L 05/04/25 03:43 Total Bilirubin 0.2 mg/dL (0.15-1.2) 05/04/25 03:43 AST 45 U/L (0-40) H 05/04/25 03:43 ALT 32 U/L (0-41) 05/04/25 03:43 Alkaline Phosphatase 90 U/L (40-130) 05/04/25 03:43 Troponin T Baseline 16 ng/L (0-15) H 05/04/25 03:43 Total Protein 6.2 g/dL (6.6-8.7) L 05/04/25 03:43 Albumin 3.8 g/dL (3.5-5.2) 05/04/25 03:43 Globulin 2.4 g/dL (1.3-4.6) 05/04/25 03:43 Salicylates < 0.3 mg/dL (3-10) L 05/04/25 03:43 Acetaminophen < 5.0 ug/mL (10-30) L 05/04/25 03:43 Ethyl Alcohol < 10 mg/dL (0-10) 05/04/25 03:43 All radiology interpretation(s) finalized by discharge ED provider radiology interpretation(s): Chest x-ray showing no significant pulmonary edema or focal consolidation on my independent interpretation EKG Data EKG 1: I personally reviewed and interpreted this EKG as follows: EKG interpretation date: 05/04/25 EKG interpretation time: :58 Prior EKG tracings: available for review Interpretation: Rapid atrial flutter at 159 bpm, no STEMI, QTc 414ms, normal axis Critical Care Time 2 Critical Care Time: Critical Care Time: Yes Total Critical Care Time: 35 Attestation: This case had a high probability of a clinically significant, sudden, or life threatening deterioration of this patient's condition which required my full and direct attention, intervention and personal management. Discharge Plan Discharge Patient Disposition: Admitted As Inpatient Clinical Impression: Atrial flutter with rapid ventricular response Condition: Fair Coding Level of Care Code ED School Director for Camila Alvares
--- NOTE | 2025-05-04 02:58 | ECG_ITS ---
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 Measurements Intervals [place] Rate: 159 P: 0 LA: 0 QRS: 84 QRSD: 126 T: 85 QT: 325 QTc: 530 Interpretive Statements ATRIAL FLUTTER/TACHYCARDIA WITH RAPID VENTRICULAR RESPONSE SEPTAL MYOCARDIAL INFARCTION , PROBABLY OLD [40+ ms Q WAVE IN V1/V2] CRITICAL TEST RESULT Compared to ECG 04/07/2025 13:23:38 Myocardial infarct finding now present Sinus tachycardia no longer present Electronically Signed On 05-04-2025 08:40:12 BATH DESIGN SALES CONSULTANT by Jesus Tellez M.D. [id number]
[2025-05-04] MEDS: dilTIAZem 5 mg/mL SDV 5 mL 20 MG IVP (03:30)
[2025-05-04 03:59] LABS: Hematocrit 36.6 % (37-53); Hemoglobin 12.10 g/dL (11.27-16.99); Mean Corpuscular HGB Conc 33.1 g/dL (30-55); Mean Corpuscular Hemoglobin 35.5 pg (27-33); Mean Corpuscular Volume 107.3 fl (82-101); Nucleated Red Blood Cells % 0 %; Platelet Count 262 10^3/cmm (157-399); Red Blood Count 3.41 10^6/uL (3.85-5.65); White Blood Count 6.29 10^3/uL (3.29-11.43)
[2025-05-04 04:11] LABS: Troponin(5th) Baseline 16 ng/L (0-15)
[2025-05-04 04:13] LABS: Acetaminophen < 5.0 ug/mL (10-30); Alanine Aminotransferase 32 U/L (0-41); Albumin Level 3.8 g/dL (3.5-5.2); Alcohol Level < 10 mg/dL (0-10); Alkaline Phosphatase 90 U/L (40-130); Aspartate Amino Transferase 45 U/L (0-40); Blood Urea Nitrogen 18 mg/dL (6-20); Calcium 8.0 mg/dL (8.5-10.5); Carbon Dioxide 24 mmol/L (22-29); Chloride 102 mmol/L (98-107); Globulin 2.4 g/dL (1.3-4.6); Glucose 94 mg/dL (65-115); Osmolality Calculated 288 mOsm/kg (285-295); Salicylate < 0.3 mg/dL (3-10); Sodium 138 mmol/L (136-145); Total Protein 6.2 g/dL (6.6-8.7)
[2025-05-04] MEDS: thiamine 100 mg/mL 2mL SDV IVP (04:13)
[2025-05-04 04:14] LABS: Anion Gap 15.8 (5-19); Potassium 3.8 mmol/L (3.5-5.1)
[2025-05-04] MEDS: dilTIAZem 5 mg/mL SDV 5 mL 22.5 MG IVP (04:15)
[2025-05-04] MEDS: DILTIAZEM HCL/D5W 125 MG/125 ML BAG IV (04:20)
[2025-05-04] MEDS: LORazepam 2 mg/mL INJ 1 mL IVP (04:49)
--- NOTE | 2025-05-04 05:10 | XRR_ITS ---
PROCEDURE INFORMATION: Exam: XR Chest Exam date and time: 05/04/2025 5:12 AM Age: 49 years old Clinical indication: Shortness of breath; Additional info: Tachycardia, meth withdrawal, mild hypoxia TECHNIQUE: Imaging protocol: Radiologic exam of the chest. Views: 1 view. COMPARISON: CT angio chest PE protcl [id number] 09/07/2024 1:38 AM FINDINGS: Lungs: Unremarkable. No consolidation. Pleural spaces: Unremarkable. No pleural effusion. No pneumothorax. Heart/Mediastinum: Unremarkable. No cardiomegaly. Bones/joints: Unremarkable. XR/XR chest 1V portable [id number] IMPRESSION: No acute cardiopulmonary process.
--- NOTE | 2025-05-04 06:32 | P.HP_ITS ---
Providers/Chief Complaint 2 Primary Care Provider: Chayito Cali MD Chief Complaint: Hands tingeling and burning, Face on rt side History of Present Illness Ludin Gordon is a 49 year old male with a history of atrial fibrillation/flutter, etoh abuse, illicit drug use, and bipolar I, who presented to the ED with complaints of diffuse weakness and shaking that, per ED physician documentation, the patient attributes to alcohol and methamphetamine use. Unfortunately, I am unable to obtain history from the patient at this time. He was provided with 2mg IV lorazepam and since administration, has been too difficult to arouse for history gathering. Bedside RN tells me the patient was alert and oriented x4 prior to administration and patient reported not sleeping for 3 days due to methamphetamine use. ED physician sign out to me included atrial flutter and a possible component of anxiety contributing hence the benzodiazepine administration. However, chart review suggest a longstanding history of substance and alcohol abuse with associated psychiatric care. Medications/Allergies Home Medications ?Medication ?Instructions ?Recorded ?Confirmed ?Last Taken ?Type albuterol sulfate 90 mcg/actuation 2 puff inhalation Q 4H PRN 06/25/24 04/07/25 Unknown Rx aerosol inhaler (Ventolin HFA) shortness of breath or wheezing #8.5 grams hydroxyzine pamoate 25 mg capsule 50 mg (2 x 25 mg) PO Q6H PRN 04/14/25 Unknown Rx Anxiety 30 days #120 caps lurasidone 40 mg tablet 40 mg PO QPM 30 days #30 tab s 04/14/25 Unknown Rx olanzapine 5 mg disintegrating 5 mg PO DAILY PRN 04/14 Unknown Rx tablet Agitation/Psychosis 30 days #30 tabs pantoprazole 40 mg tablet,delayed 40 mg PO BEDTIME 30 days #30 tabs 04/14/25 Unknown Rx release propranolol 10 mg tablet 10 mg PO BID 30 days #60 tab s 04/14/25 Unknown Rx quetiapine 300 mg tablet 300 mg PO BEDTIME 30 days #3 0 tabs 04/14/25 Unknown Rx sucralfate 1 gram tablet 1 g PO QID 30 days #120 tabs 04/14/25 Unknown Rx tamsulosin 0.4 mg capsule 0.4 mg PO DAILY 30 days #30 caps 04/14/25 Unknown Rx trazodone 50 mg tablet 50 mg PO BEDTIME PRN Sleep 3 0 days 04/14/25 Unknown Rx #30 tabs Allergies Allergy/AdvReac Type Severity Reaction Status Date / Time No Known Allergies Allergy Verified 05/04/25 00:30 PFSH Acute 2 PFSH: Medical History (Updated 05/04/25 @ 06:49 by Roque Haq MD) Methamphetamine abuse Alcohol dependence Anxiety Psychiatric care Atrial flutter Atrial fibrillation Methamphetamine abuse -UDS positive for amphetamines/THC Bipolar 1 disorder, manic, mild Depressive disorder, not elsewhere classified Adjustment disorder with mixed disturbance of emotions and conduct Alcohol use disorder -Has known history of alcohol abuse&DT Surgical History H/O hernia repair History of appendectomy Family History (Reviewed 05/04/25 @ 02: by Sang Carpenter MD) Other Alcoholism /alcohol abuse Social History (Reviewed 05/04/25 @ 02: by Sang Carpenter MD) Smoking and tobacco/nicotine status: never used tobacco/nicotine Quit status (tobacco/nicotine): has tried quititng Number of times tried to quit tobacco: 4 Second hand smoke exposure: Yes Alcohol intake: current Substance/Drug Use: current Current gender identity: Male Vitals/I&O/Wt Last Vital Signs Temp 97.7 F 05/04/25 00:14 Pulse 160 H 05/04/25 06:00 Resp 20 H 05/04/25 00:14 BP 107/76 05/04/25 06:00 Pulse Ox 96 05/04/25 06:00 O2 Del Method Room Air 05/04/25 06:00 05/03/25 05/03/25 05/04/25 14:59 22:59 06:59 Intake Total 1010.917 / 1010.917 Balance 1010.917 / 1010.917 Weight last 48 hrs Weight 64.864 kg Physical Exam 2 Const: OTHER: Lethargic, unable to arouse for history gathering Resp: COMMON NORMALS: normal respiratory effort and No use of accessory muscles Cardio: OTHER: Tachycardic rate but regular. NO MRG GI: COMMON NORMALS: Normal to inspection, nondistended, normoactive bowel sounds present Neuro: OTHER: Somnolent. Will twich and move extremities in a non-purposeful manner with attempts to arouse Data 05/04/25 03:43 05/04/25 03:43 A&P Assessment and plan 1. Atrial flutter with rapid ventricular response: - ED has provided administrations of diltiazem and provided a drip without resolution - Stop diltiazem, start amiodarone drip with bolus - CHADSVACS score is zero. Will forego therapeutic anticoagulation for now - Consider cardiology consultation if amiodarone is not effective - Resume home proprananol when safe to do so 2. Methamphetamine use disorder, severe, dependence: - Possibly a component of withdrawal. Treat symptomatically 3. Alcohol abuse: - Alcohol level of 0 on arrival. Need more history from patient - Will hold on further benzodiazepines given his exaggerated response to the 2mg IV in the ED. Consider starting at a later time 4. Anxiety disorder, unspecified type: - Resume home medications when safe to do so 5. Bipolar depression: - Resume home medication when safe to do so PDMP PDMP Reviewed: Not Reviewed Attestations 2 Medical Necessity Statement*: Patient will require greater than two midnights for management of possible withdrawal from unknown substances Coding Level of Care Code Acute Code for [facility] Diagnoses Atrial flutter with rapid ventricular response I48.92 Methamphetamine use disorder, severe, dependence F15.20 Alcohol abuse F10.10 Anxiety disorder, unspecified type F41.9 Anxiety disorder type: unspecified anxiety disorder Bipolar depression F31.9
[2025-05-04 06:39] LABS: Troponin 5 2HR 15.71 ng/L (0-15)
[2025-05-04] MEDS: amiodarone 150 MG/100 ML PREMIX 400 MG IV (06:45)
[2025-05-04 06:48] LABS: Troponin 5 2HR Delta -0.29 ABS# (0-10)
[2025-05-04] MEDS: AMIODARONE HCL/D5W 900 MG/500 ML BAG 33.33 MG IV (07:09)
--- NOTE | 2025-05-04 07:31 | PC.NURSE ---
ATTEMPTED NURSING REPORT AT [id number]
--- NOTE | 2025-05-04 08:03 | PC.NURSE ---
ATTEMPTED TO WAKE PATIENT DUE TO O2 SATURATION, PATIENT CONTINUES TO SNORE AND DIFFICULT TO AROUSE. WHEN WAKING, PATIENT REACHES 98% ON RA. DR ROJAS NOTIFIED. PLACED PATIENT ON 2 L NC TO BRING O2 SATURATION TO WNL.
--- NOTE | 2025-05-04 08:21 | PC.NURSE ---
ATTEMPTED NURSING REPORT @ [phone].
[2025-05-04] MEDS: metoprolol tartrate 1 mg/1 mL SDV 5 mL 5 MG IVP (10:21)
[2025-05-04] MEDS: esmolol drip 2,500 MG/250 ML PREMIX 19.95 MG IV (11:03)
[2025-05-04 11:16] LABS: Glucose Urine UA Negative (Normal); Nitrate Urine Negative (Negative); Specific Gravity, Urine 1.022 (1.005-1.030)
[2025-05-04 11:18] LABS: Add Urine Microscopic? YES
[2025-05-04 11:23] LABS: PCP Screen Urine Negative (Negative)
--- NOTE | 2025-05-04 11:41 | CT_ITS ---
WS: [id number] CT HEAD TECHNIQUE: Noncontrast CT of the head obtained from the skullbase to the vertex. CLINICAL INFORMATION: AMS COMPARISON: 2024 DLP: 1087.[address] scans at [facility] use at least one of these dose optimization techniques: automated exposure control; mA and/or kV adjustment per patient size (includes targeted exams where dose is matched to clinical indication); or iterative reconstruction. FINDINGS: No evidence of intracranial hemorrhage or mass effect. Ventricular system and basal cisterns are patent. Mild small vessel changes with mild parenchymal volume loss. No extra-axial fluid collections. No evidence of mass or mass effect. Normal hale-white differentiation. Mild ethmoid sinusitis. CT/CT head wo con* [id number] IMPRESSION: 1. No evidence of intracranial hemorrhage or mass effect. 2. Mild ethmoid sinusitis 3. No acute intracranial findings.
--- NOTE | 2025-05-04 13:30 | PC.NURSE ---
Transfer: Received patient at 0845 from ER staff. Patient is lethargic, but rousable and will answer person, place, time, and situation questions. HR: 155 - SVT BP: 124/93 SPO2: 95% on 2LNC Temp:98.4 AMiodarone is currently running at 1mg/min
--- NOTE | 2025-05-04 13:32 | PC.NURSE ---
[place]: [place] [id number], nurse informed Dr page that cardizen was innefective in ER so they switched to Amiodarone. has been on amiodarone for about 3 hours now with no improvement. Received orders to start esmolol.
--- NOTE | 2025-05-04 13:34 | PC.NURSE ---
Addendum entered by Efrain Figueroa RN 05/04/25 15:42: Physician communication..... Esmolol was restarted. Despite starting midodrine and increasing fluids, the patient's blood pressure has been unable to tolerate more than the starting dose of esmolol. Remains in SVT, hr of 143. Asymptomatic except for the soft blood pressure which are only present when esmolol is running. Nurse alerted Dr page. Original Note: Physician communication: NUrse had to pause esmolol due to hypotension. It had no effect on heart rate. NUrse alerted Dr page. FLuids increased form 75 to 150ml/hr. Started on midodrine. Reassess appropriateness of esmolol in 1 hour. WIll consult cardiology if unable to proceed with esmolol after these changes.
--- NOTE | 2025-05-04 17:05 | ECG_ITS ---
[facility]: 2025-05-04 Pat Name: Ludin Gordon Department: Room: [facility] Gender: Male Weight Trainer: : 1975 Requested By: Romulo Weaver Order Number: [id number] Yeni MD: Jesus Tellez M.D. Measurements Intervals [place] Rate: 144 P: 0 [place]: 0 QRS: 57 QRSD: 88 T: -48 QT: 289 QTc: 448 Interpretive Statements ATRIAL FLUTTER/TACHYCARDIA WITH RAPID VENTRICULAR RESPONSE ST DEVIATION AND MODERATE T-WAVE ABNORMALITY, CONSIDER INFERIOR ISCHEMIA [-0.1+ mV T-WAVE IN II/aVF] Compared to ECG 05/04/2025 02:58:37 T-wave abnormality now present Possible ischemia now present Myocardial infarct finding no longer present Electronically Signed On 05-04-2025 18:54:42 ACCOUNTANT HELPER by Jesus Tellez M.D. [id number]
--- NOTE | 2025-05-04 17:18 | P.CONIM_ITS ---
Providers/Reason For Consult 2 Consulting Physician/Specialty*: CARLY Tellez MD/cardiology Reason for Consult*: Patient with atrial fibrillation Attending Physician: Romulo Weaver MD Primary Care Provider: Chayito Cali MD History of Present Illness History of Present Illness Ludin Gordon is a 49 year old male with a history of polysubstance abuse, is admitted to the hospital through the emergency room, where he presented with complaints of tingling and numbness of his face and right side of the body. Patient was found to be in atrial flutter with rapid ventricular rate. He was initially started on IV Cardizem in the emergency room. Since there was no response, he was started on IV amiodarone. The heart rate started coming down. He is admitted to hospital for further evaluation management. Now the heart rate again started going up into the 130s and 140s. He was given 1 dose of metoprolol IV followed by IV esmolol. Heart rate still remains in the 130s and 140s. Patient has no chest pain. He may have some fluttering in the chest. No unusual shortness of breath. No fever or chills. No cough. He continues to have the tingling and numbness of his face and the extremities. According to the patient, he has been abusing methamphetamine, fentanyl and alcohol prior to the hospital admission. He also is complaining of this swollen hands and painful nailbeds. He seems to think that he may have gotten frostbite last night by staying out in the cold (patient is homeless) He had multiple ER visits in the recent past with alcohol/drug related issues. He had at least 7 ER visits within the last 1 month . 3 weeks ago he was admitted with features of psychosis. He has no previous history for any coronary disease, myocardial infarction, congestive heart failure or cardiac arrhythmia. No documented history of a CVA. He is known to have multiple personality disorders, bipolar disorder, suicidal ideation, major depressions, polysubstance abuse as mentioned above, etc. Review of Systems 2 Narrative: CONSTITUTIONAL: No fever or chills. EYES: He has occasional blurred vision especially with alcohol and meth abuse. ENT: No hoarseness of voice, auditory disturbances or sore throat. CARDIOVASCULAR: As mentioned above. RESPIRATORY: No significant cough. GASTROINTESTINAL: Patient was told to have multiple ulcers in his stomach and an inflamed is a 5 GENITOURINARY: No dysuria or hematuria. INTEGUMENTARY: No skin rashes or history of skin cancer. NEURO: Recent hospital admission for psychosis. Tingling and numbness as mentioned above PSYCHIATRIC: Alcohol and drug addiction, bipolar disorder, suicidal ideation HEMATOLOGIC: No bleeding disorders or significant anemia. ENDOCRINE: No history of polyuria or polydipsia. MUSCULOSKELETAL: No recent joint pain or swelling. ALLERGY/IMMUNOLOGY: As mentioned above. Medications/Allergies Home Medications ?Medication ?Instructions ?Recorded ?Confirmed ?Last Taken ?Type albuterol sulfate 90 mcg/actuation 2 puff inhalation Q 4H PRN 06/25/24 05/04/25 Unknown Rx aerosol inhaler (Ventolin HFA) shortness of breath or wheezing #8.5 grams hydroxyzine pamoate 25 mg capsule 50 mg (2 x 25 mg) PO Q6H PRN 04/14/25 05/04/25 Unknown Rx Anxiety 30 days #120 caps lurasidone 40 mg tablet 40 mg PO QPM 30 days #30 tab s 04/14/25 05/04/25 Unknown Rx olanzapine 5 mg disintegrating 5 mg PO DAILY PRN 04/1405/04/25 Unknown Rx tablet Agitation/Psychosis 30 days #30 tabs pantoprazole 40 mg tablet,delayed 40 mg PO BEDTIME 30 days #30 tabs 04/14/25 05/04/25 Unknown Rx release propranolol 10 mg tablet 10 mg PO BID 30 days #60 tab s 04/14/25 05/04/25 Unknown Rx quetiapine 300 mg tablet 300 mg PO BEDTIME 30 days #3 0 tabs 04/14/25 05/04/25 Unknown Rx sucralfate 1 gram tablet 1 g PO QID 30 days #120 tabs 04/14/25 05/04/25 Unknown Rx tamsulosin 0.4 mg capsule 0.4 mg PO DAILY 30 days #30 caps 04/14/25 05/04/25 Unknown Rx trazodone 50 mg tablet 50 mg PO BEDTIME PRN Sleep 3 0 days 04/14/25 05/04/25 Unknown Rx #30 tabs Allergies Allergy/AdvReac Type Severity Reaction Status Date / Time No Known Allergies Allergy Verified 05/04/25 00:30 Current Medications Generic Name Dose Route Start Last Admin Trade Name Freq PRN Reason Stop Dose Admin Enoxaparin Sodium 40 mg 05/04/25 08:43 05/04/25 09:07 Enoxaparin 40 Mg/0.4 Ml Syringe SUBCUT 40 mg Q24H ALEC Administration AMIODARONE HCL/D5W 900 mg in 500 mls @ 0 mls/hr 05/04/25 06:20 05/04/25 12:36 Amiodarone 900 Mg/500 Ml-D5w IV 0.5 mg/min .Q0M ALEC 16.67 mls/hr Protocol Titration Per Protocol Sodium Chloride 1,000 mls @ 150 mls/hr 05/04/25 08:43 05/04/25 13:04 Sodium Chloride 0.9% IV 150 mls/hr .Q6H40M ALEC Infusion Esmolol HCl 2,500 mg in 250 mls @ 0 mls/hr 05/04/25 10:45 05/04/25 14:45 Brevibloc Drip IV 50 mcg/kg/min .Q0M ALEC 19.95 mls/hr Protocol Titration Per Protocol Lurasidone HCl 40 mg 05/04/25 17:00 05/04/25 17:05 Lurasidone 20 Mg Tablet PO 40 mg QPM ALEC Administration Metoprolol Tartrate 5 mg 05/04/25 09:57 05/04/25 10:21 Metoprolol Tartrate 1 Mg/1 Ml Sdv 5 Ml IVP 5 mg Q6H PRN Administration HEART RATE-HIGH Midodrine 10 mg 05/04/25 13:37 05/04/25 13:52 Midodrine 5 Mg Tablet PO 10 mg TID ALEC Administration Non-Formulary Medication 10 mg 05/04/25 17:00 05/04/25 16:59 Propranolol PO Not Given BID ALEC Tamsulosin HCl 0.4 mg 05/04/25 08:43 05/04/25 10:55 Tamsulosin 0.4 Mg Capsule PO 0.4 mg DAILY ALEC Administration PFSH Acute 2 PFSH: Medical History Methamphetamine abuse Alcohol dependence Anxiety Psychiatric care Atrial flutter Atrial fibrillation Methamphetamine abuse -UDS positive for amphetamines/THC Bipolar 1 disorder, manic, mild Depressive disorder, not elsewhere classified Adjustment disorder with mixed disturbance of emotions and conduct Alcohol use disorder -Has known history of alcohol abuse&DT Surgical History H/O hernia repair History of appendectomy Family History Other Alcoholism /alcohol abuse Social History Smoking and tobacco/nicotine status: never used tobacco/nicotine Quit status (tobacco/nicotine): has tried quititng Number of times tried to quit tobacco: 4 Second hand smoke exposure: Yes Alcohol intake: current Substance/Drug Use: current Current gender identity: Male Vitals/I&O/Wt Last Vital Signs Temp 98 F 05/04/25 12:45 Pulse 143 H 05/04/25 14:00 Resp 28 H 05/04/25 13:05 BP 90/67 05/04/25 13:05 Pulse Ox 98 05/04/25 13:05 O2 Del Method Nasal Cannula 05/04/25 12:45 O2 Flow Rate 2 05/04/25 12:45 05/04/25 05/04/25 05/04/25 06:59 14:59 22:59 Intake Total 1027.417 / 7389.577 4001.764 / 1631.764 Balance 1027.417 / 8632.054 5436.764 / 1631.764 Weight last 48 hrs Weight 146 lb 9.718 oz Weight 143 lb Physical Exam 2 Narrative: GENERAL: The patient is alert and oriented times three. Not in any acute distress. HEENT: No significant pallor, icterus or lymphadenopathy.Oral cavity: There are no mucous membrane lesions. NECK: Trachea appears to be central. No masses noted. No JVD or thyromegaly appreciated. RESPIRATORY: Chest is symmetrical. No intercostals muscle retraction or any accessory muscle activation. There is no chest wall tenderness. Breath sounds are heard bilaterally. No rales or rhonchi heard. No evidence of any consolidation. BREASTS: Deferred. HEART: The heart sounds are normal. No S3 or S4. No significant murmurs. No pericardial rub ABDOMEN: No vessel pulsations or distention. No tenderness. No organomegaly appreciated. Bowel sounds are normally heard. : Deferred. RECTAL: Deferred. LYMPHATIC: No lymphadenopathy noted in the neck. EXTREMITIES: No edema or cyanosis. No clubbing. MUSCULOSKELETAL: No acute joint deformities or swelling SKIN: There are no significant rashes or ecchymosis NEUROPSYCHIATRIC: The patient is alert and oriented x3. Not in acute distress. Answering questions appropriately Data 05/05/25 05:10 05/05/25 05:10 Other Labs: Laboratory Last Values WBC 6.29 10^3/uL (3.29-11.43) 05/04/25 03:43 RBC 3.41 10^6/uL (3.85-5.65) L 05/04/25 03:43 Hgb 12.10 g/dL (11.27-16.99) 05/04/25 03:43 Hct 36.6 % (37-53) L 05/04/25 03:43 MCV 107.3 fl (82-101) H 05/04/25 03:43 MCH 35.5 pg (27-33) H 05/04/25 03:43 MCHC 33.1 g/dL (30-55) 05/04/25 03:43 RDW 13.7 % (12.1-15.1) 05/04/25 03:43 Plt Count 262 10^3/cmm (157-399) 05/04/25 03:43 MPV 9.5 fL (7.4-10.4) 05/04/25 03:43 Neut % (Auto) 54.7 % 05/04/25 03:43 Lymph % (Auto) 29.3 % 05/04/25 03:43 [place] % (Auto) 13.5 % 05/04/25 03:43 Eos % (Auto) 1.9 % 05/04/25 03:43 Baso % (Auto) 0.3 % 05/04/25 03:43 Neut # (Auto) 3.44 10^3/uL (1.8-7.7) 05/04/25 03:43 Lymph # (Auto) 1.8 10^3/uL (0.8-4.8) 05/04/25 03:43 [place] # (Auto) 0.9 10^3/uL (0.2-0.9) 05/04/25 03:43 Eos # (Auto) 0.1 10^3/uL (0.0-0.8) 05/04/25 03:43 Baso # (Auto) 0.0 10^3/uL (0.0-0.1) 05/04/25 03:43 Nucleated RBC % (auto) 0 % 05/04/25 03:43 Nucleated RBCs # 0.0 /100WBC 05/04/25 03:43 Sodium 138 mmol/L (136-145) 05/04/25 03:43 Potassium 3.8 mmol/L (3.5-5.1) 05/04/25 03:43 Chloride 102 mmol/L (98-107) 05/04/25 03:43 Carbon Dioxide 24 mmol/L (22-29) 05/04/25 03:43 Anion Gap 15.8 (5-19) 05/04/25 03:43 BUN 18 mg/dL (6-20) 05/04/25 03:43 Creatinine 0.7 mg/dL (0.7-1.2) 05/04/25 03:43 GFR Calculation 120.4 mL/min (90-130) 05/04/25 03:43 Glucose 94 mg/dL (65-115) 05/04/25 03:43 POC Glucose 90 mg/dL (70-110) 05/04/25 09:02 Calculated Osmolality 288 mOsm/kg (285-295) 05/04/25 03:43 Calcium 8.0 mg/dL (8.5-10.5) L 05/04/25 03:43 Total Bilirubin 0.2 mg/dL (0.15-1.2) 05/04/25 03:43 AST 45 U/L (0-40) H 05/04/25 03:43 ALT 32 U/L (0-41) 05/04/25 03:43 Alkaline Phosphatase 90 U/L (40-130) 05/04/25 03:43 Troponin T Baseline 16 ng/L (0-15) H 05/04/25 03:43 Troponin T 120 Minute 15.71 ng/L (0-15) H 05/04/25 06:15 Delta Troponin T -0.29 ABS# (0-10) L 05/04/25 06:15 Total Protein 6.2 g/dL (6.6-8.7) L 05/04/25 03:43 Albumin 3.8 g/dL (3.5-5.2) 05/04/25 03:43 Globulin 2.4 g/dL (1.3-4.6) 05/04/25 03:43 Urine Color Yellow (Yellow) 05/04/25 10:50 Urine Appearance Clear (CLEAR) 05/04/25 10:50 Urine pH 5.5 (5-7) 05/04/25 10:50 Ur Specific [place] 1.022 (1.005-1.030) 05/04/25 10:50 Urine Protein Trace (Negative) A 05/04/25 10:50 Urine Glucose (UA) Negative (Normal) 05/04/25 10:50 Urine Ketones Trace (Negative) 05/04/25 10:50 Urine Blood Negative (Negative) 05/04/25 10:50 Urine Nitrate Negative (Negative) 05/04/25 10:50 Urine Bilirubin Negative (Negative) 05/04/25 10:50 Urine Urobilinogen 1.0 mg/dL (Negative) 05/04/25 10:50 Ur Leukocyte Esterase Negative (Negative) 05/04/25 10:50 Urine RBC 0-2 /hpf (0-2) 05/04/25 10:50 Urine WBC 0-5 /hpf (0-5) 05/04/25 10:50 Ur Squamous Epith Cells 0-5 /hpf (0-5) 05/04/25 10:50 Amorphous Sediment Not Reportable 05/04/25 10:50 Urine Bacteria None seen /hpf (NONE) 05/04/25 10:50 Hyaline Casts 2.05 /lpf 05/04/25 10:50 Salicylates < 0.3 mg/dL (3-10) L 05/04/25 03:43 Urine Opiates Screen Positive ng/mL (Negative) H 05/04/25 10:50 Acetaminophen < 5.0 ug/mL (10-30) L 05/04/25 03:43 Ur Barbiturates Screen Positive ng/mL (Negative) H 05/04/25 10:50 Ur Phencyclidine Scrn Negative ng/mL (Negative) 05/04/25 10:50 Ur Amphetamines Screen Positive ng/mL (Negative) H 05/04/25 10:50 U Benzodiazepines Scrn Positive ng/mL (Negative) H 05/04/25 10:50 Urine Cocaine Screen Negative ng/mL (Negative) 05/04/25 10:50 U Marijuana (THC) Screen Negative ng/mL (Negative) 05/04/25 10:50 Ethyl Alcohol < 10 mg/dL (0-10) 05/04/25 03:43 Other data: EKG shows atrial flutter with rapid ventricular rate. Heart rate of 142 bpm. A&P Assessment and plan 1. Atrial flutter with rapid ventricular response: Methamphetamine abuse and the alcohol abuse could be a major contributing factor for the arrhythmia. Patient may be continued on the esmolol for the time being. I may discontinue the amiodarone. Also may give digoxin IV as needed. Since he seems to be hemodynamically stable, I may hold off cardioversion at this point. Because of the low [id number]- VASc score he do not need any IV anticoagulation at this point., He has a history of multiple stomach ulcers and inflammation of the esophagus. 2. Methamphetamine use disorder, severe, dependence: Management as per the primary. History of withdrawal symptoms in the past 3. Bipolar 1 disorder, manic, mild: Management as per the primary 4. Alcohol use disorder, severe, dependence: He may have some withdrawal symptoms. Management as per the primary 5. Recurrent major depressive disorder, remission status unspecified: Management as per the primary/behavioral health Plan: Patient may be closely monitored on telemetry. Based on the clinical progress, further recommendations will be made Once the heart rate gets under control, we may do an echocardiogram to evaluate LV function Based on the clinical progress, further recommendations will be made Thank you for the opportunity to evaluate this patient and make these recommendations PDMP PDMP Reviewed: Not Reviewed Consult Attestations 2 Medical Necessity Statement: Patient requires continued hospital stay for close monitoring and further management Coding Level of Care Code 29224 Diagnoses Atrial flutter with rapid ventricular response I48.92 Methamphetamine use disorder, severe, dependence F15.20 Bipolar 1 disorder, manic, mild F31.11 Alcohol use disorder, severe, dependence F10.20 Recurrent major depressive disorder, remission status unspecified F33.9 Active/Remission status: remission status unspecified Major depression recurrence: recurrent
[2025-05-04] MEDS: digoxin 250 mcg/ml INJ 2 mL IVP (17:51)
--- NOTE | 2025-05-04 18:30 | PC.NURSE ---
Shift SUmmary: Despite receiving cardizem, metoprolol, amiodarone, esmolol, and Digoxin, patient remains in a flutter. Heart rate of 144 at time of this note. AMiodarone stopped by Dr Tellez, continue with esmolol.
[2025-05-05] VITALS (98 sets, daily range): BP systolic 98–150; BP diastolic 65–101; PULSE 82–116; RESP 6–45; TEMP 36.2–36.9; O2SAT 83–98; BMI 21.0
[2025-05-05] MEDS: esmolol drip 2,500 MG/250 ML PREMIX 19.95 MG IV (00:12)
[2025-05-05 06:04] LABS: Hematocrit 38.4 % (37-53); Hemoglobin 11.90 g/dL (11.27-16.99); Mean Corpuscular HGB Conc 31.0 g/dL (30-55); Mean Corpuscular Hemoglobin 35.1 pg (27-33); Mean Corpuscular Volume 113.3 fl (82-101); Nucleated Red Blood Cells % 0 %; Platelet Count 256 10^3/cmm (157-399); Red Blood Count 3.39 10^6/uL (3.85-5.65); White Blood Count 8.35 10^3/uL (3.29-11.43)
[2025-05-05 06:24] LABS: Blood Urea Nitrogen 11 mg/dL (6-20); Calcium 7.7 mg/dL (8.5-10.5); Carbon Dioxide 22 mmol/L (22-29); Chloride 106 mmol/L (98-107); Glucose 126 mg/dL (65-115); Osmolality Calculated 285 mOsm/kg (285-295); Sodium 137 mmol/L (136-145)
[2025-05-05 06:25] LABS: Anion Gap 12.7 (5-19); Potassium 3.7 mmol/L (3.5-5.1)
--- NOTE | 2025-05-05 09:59 | USCV_ITS ---
Evan Ludin Age: 49 Gender: M : 1975 Exam Date: 05/05/2025 14:34 Ordering Phys: Romulo Weaver MD Technologist: Exam Location: [facility] [place] Indication: sob cp BP: 132 / 92 HR: 89 Rhythm: Sinus Technical Quality: Adequate MEASUREMENTS (Male / Female) Normal Values 2D ECHO LV Diastolic Diameter PLAX 4.7 cm 4.2 - 5.9 / 3.9 - 5.3 cm IVS Diastolic Thickness 1.3 cm 0.6 - 1.0 / 0.6 - 0.9 cm IVS Systolic Thickness 1.4 cm LVPW Diastolic Thickness 1.2 cm 0.6 - 1.0 / 0.6 - 0.9 cm LVPW Systolic Thickness 1.6 cm LVOT Diameter 2.0 cm LV Ejection Fraction 2D Teich 54.3 % LV Ejection Fraction MOD 4C 71.9 % LV Ejection Fraction MOD 2C 58.8 % LV Ejection Fraction 2C AL 58.6 % LA Diameter 3.6 cm RA Systolic Volume 4C AL 81.6 ml RA Systolic Volume 4C MOD 78.9 ml LA Sys Volume AL 51.2 cm cubed LA Sys Volume Index AL 26.6 cm cubed/m squared Aorta at Sinotubular Diameter 2.9 cm IVC Diameter 2.3 cm M-MODE LA Ao Ratio MM 1.2 AV Cusp Separation MM 2.9 cm DOPPLER AV Peak Velocity 105.0 cm/s LVOT Peak Velocity 100.0 cm/s AV Area Cont Eq vti 3.3 cm squared AV Area Cont Eq pk 3.1 cm squared MV Peak Velocity 94.0 cm/s MV Area PHT 5.4 cm squared Mitral E to A Ratio 1.2 TV Peak Velocity 225.5 cm/s TR Peak Velocity 238.0 cm/s TR Peak Gradient 22.7 mmHg TV Peak E Velocity 105.0 cm/s PV Peak Velocity 91.0 cm/s FINDINGS Left Ventricle Normal left ventricular size and systolic function, EF 59%. No regional wall motion abnormalities. Right Ventricle Normal right ventricular size and systolic function. Right Atrium Normal right atrial size. Left Atrium Normal left atrial size. IA Septum Normal appearance of the interatrial septum. Mitral Valve Minimally thickened mitral valve. Mild mitral valve regurgitation. Aortic Valve No gross abnormalities noted Tricuspid Valve Trace tricuspid valve regurgitation. Estimated pulmonary artery peak systolic pressure 25 mmHg Pulmonic Valve No gross abnormalities noted Pericardium No pericardial effusion. Aorta Normal aortic annulus size. IVC Normal inferior vena cava. CONCLUSIONS Normal left ventricular size and systolic function, EF 59%. No regional wall motion abnormalities. Minimally thickened mitral valve. Mild mitral valve regurgitation. Trace tricuspid valve regurgitation. Estimated pulmonary artery peak systolic pressure 25 mmHg. There is no pericardial effusion. There are no intracardiac masses. Compared to the study from 01/30/2023, there may not be a significant change Dr Jesus Tellez MD [facility] (Electronically Signed) Final Date: 05 May 2025 16:22 S
--- NOTE | 2025-05-05 10:10 | PM.PN ---
Subjective Subjective: The rhythm is converted to normal sinus at this point. Patient had an echocardiogram done which revealed normal LV size ejection fraction with no significant wall motion abnormalities. No significant valvular abnormalities. Medications: Medication Review Details: Current Medications Enoxaparin Sodium (Enoxaparin 40 Mg/0.4 Ml Syringe) 40 mg SUBCUT Q24H [facility] Last Admin: 05/05/25 08:32 Dose: 40 mg Hydroxyzine Pamoate (Hydroxyzine 25 Mg Capsule) 50 mg PO Q6H PRN PRN Reason: ANXIETY Sodium Chloride (Sodium Chloride 0.9%) 1,000 mls @ 150 mls/hr IV .Q6H40M [facility] Last Admin: 05/05/25 08:33 Dose: 150 mls/hr Esmolol HCl (Brevibloc Drip) 2,500 mg in 250 mls @ 0 mls/hr IV .Q0M [facility]; Protocol Last Admin: 05/05/25 00:12 Dose: 50 mcg/kg/min, 19.95 mls/hr Lorazepam (Lorazepam 2 Mg Tablet) 2 mg PO Q4H PRN; Protocol PRN Reason: WITHDRAWAL Lorazepam (Lorazepam 2 Mg/Ml Inj 1 Ml) 2 mg IM Q4H PRN; Protocol PRN Reason: ALCOHOL WITHDRAWAL Lorazepam (Lorazepam 2 Mg/Ml Inj 1 Ml) 2 mg IVP PRN PRN; Protocol PRN Reason: WITHDRAWAL Lurasidone HCl (Lurasidone 20 Mg Tablet) 40 mg PO QPM [facility] Last Admin: 05/04/25 17:05 Dose: 40 mg Metoprolol Tartrate (Metoprolol Tartrate 1 Mg/1 Ml Sdv 5 Ml) 5 mg IVP Q6H PRN PRN Reason: HEART RATE-HIGH Last Admin: 05/04/25 10:21 Dose: 5 mg Metoprolol Tartrate (Metoprolol Tartrate 25 Mg Tablet) 25 mg PO BID@0900,2100 [facility] Midodrine (Midodrine 5 Mg Tablet) 10 mg PO TID [facility] Last Admin: 05/05/25 04:20 Dose: 10 mg Non-Formulary Medication (Propranolol) 10 mg PO BID [facility] Last Admin: 05/05/25 04:17 Dose: Not Given Olanzapine (Olanzapine 5 Mg Odt) 5 mg PO DAILY PRN PRN Reason: Agitation/Psychosis Pantoprazole Sodium (Pantoprazole Dr 40 Mg Tablet) 40 mg PO BEDTIME [facility] Last Admin: 05/04/25 20:44 Dose: 40 mg Quetiapine Fumarate (Quetiapine 300 Mg Tablet) 300 mg PO BEDTIME [facility] Last Admin: 05/04/25 20:47 Dose: Not Given Tamsulosin HCl (Tamsulosin 0.4 Mg Capsule) 0.4 mg PO DAILY [facility] Last Admin: 05/05/25 04:21 Dose: 0.4 mg Vitals/I&O/Wt Last Vital Signs Temp 97.2 F L 05/05/25 04:00 Pulse 91 05/05/25 06:15 Resp 26 H 05/05/25 06:15 BP 112/80 05/05/25 06:15 Pulse Ox 94 05/05/25 08:28 O2 Del Method Nasal Cannula 05/05/25 08:28 O2 Flow Rate 2 05/05/25 08:28 05/04/25 05/05/25 05/05/25 22:59 06:59 14:59 Intake Total 1467.715 / 3099.479 2129.967 / 5229.446 1000 / 1000 Output Total 1450 / 1450 800 / 2250 Balance 17.715 / 3633.023 6527.967 / 2979.446 1000 / 1000 Weight last 48 hrs Weight 150 lb 10.088 oz Weight 146 lb 14.4 oz Weight 146 lb 9.718 oz Weight 143 lb Physical Exam Narrative: GENERAL: The patient is alert and oriented times three. Not in any acute distress. HEENT: No significant pallor, icterus or lymphadenopathy.Oral cavity: There are no mucous membrane lesions. NECK: Trachea appears to be central. No masses noted. No JVD or thyromegaly appreciated. RESPIRATORY: Chest is symmetrical. No intercostals muscle retraction or any accessory muscle activation. There is no chest wall tenderness. Breath sounds are heard bilaterally. No rales or rhonchi heard. No evidence of any consolidation. BREASTS: Deferred. HEART: The heart sounds are normal. No S3 or S4. No significant murmurs. No pericardial rub ABDOMEN: No vessel pulsations or distention. No tenderness. No organomegaly appreciated. Bowel sounds are normally heard. : Deferred. RECTAL: Deferred. LYMPHATIC: No lymphadenopathy noted in the neck. EXTREMITIES: No edema or cyanosis. No clubbing. MUSCULOSKELETAL: No acute joint deformities or swelling SKIN: There are no significant rashes or ecchymosis NEUROPSYCHIATRIC: The patient is alert and oriented x3. Not in acute distress. Answering questions appropriately Data 05/05/25 05:10 05/05/25 05:10 Other Labs: Laboratory Last Values WBC 8.35 10^3/uL (3.29-11.43) 05/05/25 05:10 RBC 3.39 10^6/uL (3.85-5.65) L 05/05/25 05:10 Hgb 11.90 g/dL (11.27-16.99) 05/05/25 05:10 Hct 38.4 % (37-53) 05/05/25 05:10 MCV 113.3 fl (82-101) H 05/05/25 05:10 MCH 35.1 pg (27-33) H 05/05/25 05:10 MCHC 31.0 g/dL (30-55) D 05/05/25 05:10 RDW 14.2 % (12.1-15.1) 05/05/25 05:10 Plt Count 256 10^3/cmm (157-399) 05/05/25 05:10 MPV 9.4 fL (7.4-10.4) 05/05/25 05:10 Neut % (Auto) 71.8 % 05/05/25 05:10 Lymph % (Auto) 16.3 % 05/05/25 05:10 [place] % (Auto) 10.9 % 05/05/25 05:10 Eos % (Auto) 0.6 % 05/05/25 05:10 Baso % (Auto) 0.2 % 05/05/25 05:10 Neut # (Auto) 5.99 10^3/uL (1.8-7.7) 05/05/25 05:10 Lymph # (Auto) 1.4 10^3/uL (0.8-4.8) 05/05/25 05:10 [place] # (Auto) 0.9 10^3/uL (0.2-0.9) 05/05/25 05:10 Eos # (Auto) 0.1 10^3/uL (0.0-0.8) 05/05/25 05:10 Baso # (Auto) 0.0 10^3/uL (0.0-0.1) 05/05/25 05:10 Nucleated RBC % (auto) 0 % 05/05/25 05:10 Nucleated RBCs # 0.0 /100WBC 05/05/25 05:10 Sodium 137 mmol/L (136-145) 05/05/25 05:10 Potassium 3.7 mmol/L (3.5-5.1) 05/05/25 05:10 Chloride 106 mmol/L (98-107) 05/05/25 05:10 Carbon Dioxide 22 mmol/L (22-29) 05/05/25 05:10 Anion Gap 12.7 (5-19) 05/05/25 05:10 BUN 11 mg/dL (6-20) 05/05/25 05:10 Creatinine 0.7 mg/dL (0.7-1.2) 05/05/25 05:10 GFR Calculation 120.4 mL/min (90-130) 05/05/25 05:10 Glucose 126 mg/dL (65-115) H 05/05/25 05:10 POC Glucose 90 mg/dL (70-110) 05/04/25 09:02 Calculated Osmolality 285 mOsm/kg (285-295) 05/05/25 05:10 Calcium 7.7 mg/dL (8.5-10.5) L 05/05/25 05:10 Total Bilirubin 0.2 mg/dL (0.15-1.2) 05/04/25 03:43 AST 45 U/L (0-40) H 05/04/25 03:43 ALT 32 U/L (0-41) 05/04/25 03:43 Alkaline Phosphatase 90 U/L (40-130) 05/04/25 03:43 Troponin T Baseline 16 ng/L (0-15) H 05/04/25 03:43 Troponin T 120 Minute 15.71 ng/L (0-15) H 05/04/25 06:15 Delta Troponin T -0.29 ABS# (0-10) L 05/04/25 06:15 Total Protein 6.2 g/dL (6.6-8.7) L 05/04/25 03:43 Albumin 3.8 g/dL (3.5-5.2) 05/04/25 03:43 Globulin 2.4 g/dL (1.3-4.6) 05/04/25 03:43 Urine Color Yellow (Yellow) 05/04/25 10:50 Urine Appearance Clear (CLEAR) 05/04/25 10:50 Urine pH 5.5 (5-7) 05/04/25 10:50 Ur Specific [place] 1.022 (1.005-1.030) 05/04/25 10:50 Urine Protein Trace (Negative) A 05/04/25 10:50 Urine Glucose (UA) Negative (Normal) 05/04/25 10:50 Urine Ketones Trace (Negative) 05/04/25 10:50 Urine Blood Negative (Negative) 05/04/25 10:50 Urine Nitrate Negative (Negative) 05/04/25 10:50 Urine Bilirubin Negative (Negative) 05/04/25 10:50 Urine Urobilinogen 1.0 mg/dL (Negative) 05/04/25 10:50 Ur Leukocyte Esterase Negative (Negative) 05/04/25 10:50 Urine RBC 0-2 /hpf (0-2) 05/04/25 10:50 Urine WBC 0-5 /hpf (0-5) 05/04/25 10:50 Ur Squamous Epith Cells 0-5 /hpf (0-5) 05/04/25 10:50 Amorphous Sediment Not Reportable 05/04/25 10:50 Urine Bacteria None seen /hpf (NONE) 05/04/25 10:50 Hyaline Casts 2.05 /lpf 05/04/25 10:50 Salicylates < 0.3 mg/dL (3-10) L 05/04/25 03:43 Urine Opiates Screen Positive ng/mL (Negative) H 05/04/25 10:50 Acetaminophen < 5.0 ug/mL (10-30) L 05/04/25 03:43 Ur Barbiturates Screen Positive ng/mL (Negative) H 05/04/25 10:50 Ur Phencyclidine Scrn Negative ng/mL (Negative) 05/04/25 10:50 Ur Amphetamines Screen Positive ng/mL (Negative) H 05/04/25 10:50 U Benzodiazepines Scrn Positive ng/mL (Negative) H 05/04/25 10:50 Urine Cocaine Screen Negative ng/mL (Negative) 05/04/25 10:50 U Marijuana (THC) Screen Negative ng/mL (Negative) 05/04/25 10:50 Ethyl Alcohol < 10 mg/dL (0-10) 05/04/25 03:43 A&P Assessment and plan 1. Atrial flutter with rapid ventricular response: Methamphetamine abuse and the alcohol abuse could be a major contributing factor for the arrhythmia. Patient may be continued on the esmolol for the time being. I may discontinue the amiodarone. Also may give digoxin IV as needed. Since he seems to be hemodynamically stable, I may hold off cardioversion at this point. Because of the low [id number] score he do not need any IV anticoagulation at this point., He has a history of multiple stomach ulcers and inflammation of the esophagus. Started on metoprolol 25 mg p.o. twice daily. Discontinue the esmolol. Also may give 1 dose of digoxin 0.25 mg IV today. 2. Methamphetamine use disorder, severe, dependence: Management as per the primary. History of withdrawal symptoms in the past 3. Bipolar 1 disorder, manic, mild: Management as per the primary 4. Alcohol use disorder, severe, dependence: He may have some withdrawal symptoms. Management as per the primary 5. Recurrent major depressive disorder, remission status unspecified: Management as per the primary/behavioral health Plan: The patient's cardiac status seems to be fairly stable at this point. Continue the medication as mentioned above. The cardiac implications of drug abuse were once again discussed with the patient in detail which he seems to understand well. PDMP PDMP Reviewed: Not Reviewed Attestations Medical Necessity Statement*: Disposition as per the primary Coding Level of Care Code 51801 Diagnoses Atrial flutter with rapid ventricular response I48.92 Methamphetamine use disorder, severe, dependence F15.20 Bipolar 1 disorder, manic, mild F31.11 Alcohol use disorder, severe, dependence F10.20 Recurrent major depressive disorder, remission status unspecified F33.9 Active/Remission status: remission status unspecified Major depression recurrence: recurrent
[2025-05-05] MEDS: digoxin 250 mcg/ml INJ 2 mL IVP (10:14)
[2025-05-05] MEDS: LORazepam 2 mg/mL INJ 1 mL IVP (10:20)
--- NOTE | 2025-05-05 13:22 | P.PN_ITS ---
Subjective 2 Subjective: heart rate better blood pressure stable Vitals/I&O/Wt Last Vital Signs Temp 97.3 F L 05/05/25 07:30 Pulse 96 05/05/25 10:45 Resp 22 H 05/05/25 10:45 BP 110/82 05/05/25 10:45 Pulse Ox 90 05/05/25 10:45 O2 Del Method Nasal Cannula 05/05/25 08:28 O2 Flow Rate 2 05/05/25 08:28 05/04/25 05/05/25 05/05/25 22:59 06:59 14:59 Intake Total 1467.715 / 3099.479 2129.967 / 5229.446 1621.112 / 1621.112 Output Total 1450 / 1450 800 / 2250 600 / 600 Balance 17.715 / 5619.477 7068.967 / 2979.446 1021.112 / 1021.112 Weight last 48 hrs Weight 68.325 kg Weight 66.633 kg Weight 66.5 kg Weight 64.864 kg Physical Exam 2 Narrative: General: NAD, AAO x 3 HEENT: EOMI, CVS:RRR Resp:CTA Abdomen:soft, NT MSK:no swelling Data 05/05/25 05:10 05/05/25 05:10 A&P Assessment and plan 1. Alcohol abuse: 2. Atrial flutter with rapid ventricular response: Plan: #atrial flutter with rvr #poysubstance use #etoh use #anxiety Plan: 1. wean esmolol , metoprolol, IVF 2. ciwa protocol 3. advance diet, plan to restart home medications keep in ICU for now PDMP PDMP Reviewed: Not Reviewed Attestations 2 Medical Necessity Statement*: ciwa protocol, esmolol drip Coding Level of Care Code 25419 Diagnoses Alcohol abuse F10.10 Atrial flutter with rapid ventricular response I48.92
--- NOTE | 2025-05-05 16:21 | PC.NURSE ---
Information restriction: Patient requested that we not give out information to anybody or to allow any visitors. Nurse removed the following phone numbers from the contacts section of the chart to prevent information from accidently being given out. Micaela Gordon: [phone] - /Ex ? Ludin Evan: [phone] - Son Nadine Hollingsworth: [phone] - Mother
--- NOTE | 2025-05-05 17:42 | PC.NURSE ---
Addendum entered by Efrain Figueroa RN 05/05/25 18:09: Despite administration of SOlumedrol and Benadryl, patient face has become slightly more edematous. NUrse notified Dr Weaver, requested he come to bedside for further evaluation. Dr Weaver ordered epinephrine Original Note: Physician communication: Nurse has observed the the left side of the patient's face has become swollen, and patient has developed a productive cough. No airway compromise, lung sounds are clear. Patient has not received any medications which are new to him. NUrse alerted Dr Weaver. Received orders for benadryl and solumedrol.
[2025-05-05] MEDS: methylPREDNISolone sod succ 125 mg/2 mL INJ 60 MG IVP (17:51)
--- NOTE | 2025-05-05 18:34 | PC.NURSE ---
Epinephrine administration: Epinephrine administered at 1822. By 1830, patient's speech has become more clear and he reports an easier time breathing. Facial swelling remains the same. Nurse updated Dr page. Received orders for another PRN dose of epinephrine. Nurse took picture of patient's face via hospital phone/voalte messenger. Sent image to physician and oncoming night nurse to better trend facial swelling.
--- NOTE | 2025-05-05 19:23 | PC.NURSE ---
Shift SUmmary: Rested in bed for most of the day. Up to a chair for meals. Heart rate remains Normal sinus. Started PO metoprolol. Rhys does not want information about his stay to be given to anyone. Contacts have been removed from the contacts tab of the chart, but are still available in nurse notes if needed. Near end of shift, at approximately 1745, patient developed facial swelling, and a nagging cough. Initially was treated with solumedrol and benadryl, but symptoms worsened shortly after administration. Developed mild dypsnea, slight stridor, and mumbled speech. Epinephrine was given and airway sounds, work of breathing, and speech improved. maintenance supervisor 2nd shift nurse notified of this. There is a PRN dose of epinephrine already ordered if needed.
--- NOTE | 2025-05-05 21:49 | PC.NURSE ---
IM Epi: Patient's facial edema showed no improvement, had continued increase work of breathing with low saturations, and mild stridor and wheezing was auscultated. An additional dose of IM epi was given, Dr. Haq made aware. Patient at this time has no stridor with very minimal wheezing auscultated. Will continue to monitor.
--- NOTE | 2025-05-05 21:53 | PC.NURSE ---
PO Seroquel: Patient seemed slightly lethargic, was falling asleep while talking with this nurse and required movement to arouse him. Dr. Haq gave telephone orders to hold scheduled PO Seroquel.
[2025-05-06] VITALS (87 sets, daily range): BP systolic 112–153; BP diastolic 75–113; PULSE 79–100; RESP 4–34; TEMP 36.5–37.2; O2SAT 83–100; BMI 22.7
[2025-05-06] MEDS: LORazepam 2 mg/mL INJ 1 mL 1 MG IVP ×2 (05:37→22:15)
--- NOTE | 2025-05-06 05:57 | PC.NURSE ---
Belongings: patient had multiple personal items in the room, the patient requested all personal items be placed into a locker except his phone, loadmaster, and speaker which he wanted at bedside. This nurse educated patient on the potential risk of leaving items unsecured at bedside, patient understood and agreed to leave the listed items at bedside. The remaining items were placed into the corresponding locker for the patient's room.
--- NOTE | 2025-05-06 09:19 | PM.PN ---
Subjective Subjective: Patient had a seizure-like activity last night-thought to be related to some allergic reaction/alcohol withdrawal symptoms Currently he is feeling okay. Continues to stay in the sinus rhythm Medications: Medication Review Details: Current Medications Enoxaparin Sodium (Enoxaparin 40 Mg/0.4 Ml Syringe) 40 mg SUBCUT Q24H [facility] Last Admin: 05/06/25 08:46 Dose: 40 mg Epinephrine HCl (Epinephrine 1 Mg/Ml Inj) 0.3 mg IM ONCE PRN PRN Reason: ANAPHYLAXIS Last Admin: 05/05/25 20:27 Dose: 0.3 mg Famotidine (Famotidine 20 Mg/2 Ml Inj) 20 mg IVP Q12H [facility] Last Admin: 05/06/25 05:38 Dose: 20 mg Hydroxyzine Pamoate (Hydroxyzine 25 Mg Capsule) 50 mg PO Q6H PRN PRN Reason: ANXIETY Sodium Chloride (Sodium Chloride 0.9%) 1,000 mls @ 150 mls/hr IV .Q6H40M [facility] Last Admin: 05/06/25 07:36 Dose: 150 mls/hr Esmolol HCl (Brevibloc Drip) 2,500 mg in 250 mls @ 0 mls/hr IV .Q0M [facility]; Protocol Last Titration: 05/05/25 11:17 Dose: 0 mcg/kg/min, 0 mls/hr Lorazepam (Lorazepam 2 Mg Tablet) 2 mg PO Q4H PRN; Protocol PRN Reason: WITHDRAWAL Lorazepam (Lorazepam 2 Mg/Ml Inj 1 Ml) 2 mg IM Q4H PRN; Protocol PRN Reason: ALCOHOL WITHDRAWAL Lorazepam (Lorazepam 2 Mg/Ml Inj 1 Ml) 1 mg IVP PRN PRN; Protocol PRN Reason: WITHDRAWAL Last Admin: 05/06/25 05:37 Dose: 1 mg Lurasidone HCl (Lurasidone 20 Mg Tablet) 40 mg PO QPM [facility] Last Admin: 05/05/25 17:34 Dose: 40 mg Metoprolol Tartrate (Metoprolol Tartrate 1 Mg/1 Ml Sdv 5 Ml) 5 mg IVP Q6H PRN PRN Reason: HEART RATE-HIGH Last Admin: 05/04/25 10:21 Dose: 5 mg Metoprolol Tartrate (Metoprolol Tartrate 25 Mg Tablet) 25 mg PO BID@0900,2100 [facility] Last Admin: 05/06/25 08:46 Dose: 25 mg Olanzapine (Olanzapine 5 Mg Odt) 5 mg PO DAILY PRN PRN Reason: Agitation/Psychosis Pantoprazole Sodium (Pantoprazole Dr 40 Mg Tablet) 40 mg PO BEDTIME [facility] Last Admin: 05/05/25 21:10 Dose: 40 mg Quetiapine Fumarate (Quetiapine 300 Mg Tablet) 300 mg PO BEDTIME [facility] Last Admin: 05/05/25 21:54 Dose: Not Given Tamsulosin HCl (Tamsulosin 0.4 Mg Capsule) 0.4 mg PO DAILY [facility] Last Admin: 05/06/25 05:38 Dose: 0.4 mg Vitals/I&O/Wt Last Vital Signs Temp 98.9 F 05/06/25 08:45 Pulse 90 05/06/25 08:45 Resp 25 H 05/06/25 08:45 BP 144/106 05/06/25 08:45 Pulse Ox 93 05/06/25 08:45 O2 Del Method Room Air 05/06/25 08:45 O2 Flow Rate 2 05/06/25 04:15 05/05/25 05/06/25 05/06/25 22:59 06:59 14:59 Intake Total 1240 / 3261.112 1480 / 4741.112 1480 / 1480 Output Total 1875 / 2825 450 / 3275 400 / 400 Balance -635 / 548.920 4967 / 2588.950 6784 / 1080 Weight last 48 hrs Weight 158 lb 11.725 oz Weight 158 lb 11.725 oz Weight 150 lb 10.088 oz Weight 146 lb 14.4 oz Physical Exam Narrative: GENERAL: The patient is alert and oriented times three. Not in any acute distress. HEENT: No significant pallor, icterus or lymphadenopathy.Oral cavity: There are no mucous membrane lesions. NECK: Trachea appears to be central. No masses noted. No JVD or thyromegaly appreciated. RESPIRATORY: Chest is symmetrical. No intercostals muscle retraction or any accessory muscle activation. There is no chest wall tenderness. Breath sounds are heard bilaterally. No rales or rhonchi heard. No evidence of any consolidation. BREASTS: Deferred. HEART: The heart sounds are normal. No S3 or S4. No significant murmurs. No pericardial rub ABDOMEN: No vessel pulsations or distention. No tenderness. No organomegaly appreciated. Bowel sounds are normally heard. : Deferred. RECTAL: Deferred. LYMPHATIC: No lymphadenopathy noted in the neck. EXTREMITIES: No edema or cyanosis. No clubbing. MUSCULOSKELETAL: No acute joint deformities or swelling SKIN: There are no significant rashes or ecchymosis NEUROPSYCHIATRIC: The patient is alert and oriented x3. Not in acute distress. Answering questions appropriately Data 05/06/25 09:35 05/06/25 09:35 Other Labs: Laboratory Last Values WBC 8.35 10^3/uL (3.29-11.43) 05/05/25 05:10 RBC 3.39 10^6/uL (3.85-5.65) L 05/05/25 05:10 Hgb 11.90 g/dL (11.27-16.99) 05/05/25 05:10 Hct 38.4 % (37-53) 05/05/25 05:10 MCV 113.3 fl (82-101) H 05/05/25 05:10 MCH 35.1 pg (27-33) H 05/05/25 05:10 MCHC 31.0 g/dL (30-55) D 05/05/25 05:10 RDW 14.2 % (12.1-15.1) 05/05/25 05:10 Plt Count 256 10^3/cmm (157-399) 05/05/25 05:10 MPV 9.4 fL (7.4-10.4) 05/05/25 05:10 Neut % (Auto) 71.8 % 05/05/25 05:10 Lymph % (Auto) 16.3 % 05/05/25 05:10 [place] % (Auto) 10.9 % 05/05/25 05:10 Eos % (Auto) 0.6 % 05/05/25 05:10 Baso % (Auto) 0.2 % 05/05/25 05:10 Neut # (Auto) 5.99 10^3/uL (1.8-7.7) 05/05/25 05:10 Lymph # (Auto) 1.4 10^3/uL (0.8-4.8) 05/05/25 05:10 [place] # (Auto) 0.9 10^3/uL (0.2-0.9) 05/05/25 05:10 Eos # (Auto) 0.1 10^3/uL (0.0-0.8) 05/05/25 05:10 Baso # (Auto) 0.0 10^3/uL (0.0-0.1) 05/05/25 05:10 Nucleated RBC % (auto) 0 % 05/05/25 05:10 Nucleated RBCs # 0.0 /100WBC 05/05/25 05:10 Sodium 137 mmol/L (136-145) 05/05/25 05:10 Potassium 3.7 mmol/L (3.5-5.1) 05/05/25 05:10 Chloride 106 mmol/L (98-107) 05/05/25 05:10 Carbon Dioxide 22 mmol/L (22-29) 05/05/25 05:10 Anion Gap 12.7 (5-19) 05/05/25 05:10 BUN 11 mg/dL (6-20) 05/05/25 05:10 Creatinine 0.7 mg/dL (0.7-1.2) 05/05/25 05:10 GFR Calculation 120.4 mL/min (90-130) 05/05/25 05:10 Glucose 126 mg/dL (65-115) H 05/05/25 05:10 POC Glucose 90 mg/dL (70-110) 05/04/25 09:02 Calculated Osmolality 285 mOsm/kg (285-295) 05/05/25 05:10 Calcium 7.7 mg/dL (8.5-10.5) L 05/05/25 05:10 Total Bilirubin 0.2 mg/dL (0.15-1.2) 05/04/25 03:43 AST 45 U/L (0-40) H 05/04/25 03:43 ALT 32 U/L (0-41) 05/04/25 03:43 Alkaline Phosphatase 90 U/L (40-130) 05/04/25 03:43 Troponin T Baseline 16 ng/L (0-15) H 05/04/25 03:43 Troponin T 120 Minute 15.71 ng/L (0-15) H 05/04/25 06:15 Delta Troponin T -0.29 ABS# (0-10) L 05/04/25 06:15 Total Protein 6.2 g/dL (6.6-8.7) L 05/04/25 03:43 Albumin 3.8 g/dL (3.5-5.2) 05/04/25 03:43 Globulin 2.4 g/dL (1.3-4.6) 05/04/25 03:43 Urine Color Yellow (Yellow) 05/04/25 10:50 Urine Appearance Clear (CLEAR) 05/04/25 10:50 Urine pH 5.5 (5-7) 05/04/25 10:50 Ur Specific [place] 1.022 (1.005-1.030) 05/04/25 10:50 Urine Protein Trace (Negative) A 05/04/25 10:50 Urine Glucose (UA) Negative (Normal) 05/04/25 10:50 Urine Ketones Trace (Negative) 05/04/25 10:50 Urine Blood Negative (Negative) 05/04/25 10:50 Urine Nitrate Negative (Negative) 05/04/25 10:50 Urine Bilirubin Negative (Negative) 05/04/25 10:50 Urine Urobilinogen 1.0 mg/dL (Negative) 05/04/25 10:50 Ur Leukocyte Esterase Negative (Negative) 05/04/25 10:50 Urine RBC 0-2 /hpf (0-2) 05/04/25 10:50 Urine WBC 0-5 /hpf (0-5) 05/04/25 10:50 Ur Squamous Epith Cells 0-5 /hpf (0-5) 05/04/25 10:50 Amorphous Sediment Not Reportable 05/04/25 10:50 Urine Bacteria None seen /hpf (NONE) 05/04/25 10:50 Hyaline Casts 2.05 /lpf 05/04/25 10:50 Salicylates < 0.3 mg/dL (3-10) L 05/04/25 03:43 Urine Opiates Screen Positive ng/mL (Negative) H 05/04/25 10:50 Acetaminophen < 5.0 ug/mL (10-30) L 05/04/25 03:43 Ur Barbiturates Screen Positive ng/mL (Negative) H 05/04/25 10:50 Ur Phencyclidine Scrn Negative ng/mL (Negative) 05/04/25 10:50 Ur Amphetamines Screen Positive ng/mL (Negative) H 05/04/25 10:50 U Benzodiazepines Scrn Positive ng/mL (Negative) H 05/04/25 10:50 Urine Cocaine Screen Negative ng/mL (Negative) 05/04/25 10:50 U Marijuana (THC) Screen Negative ng/mL (Negative) 05/04/25 10:50 Ethyl Alcohol < 10 mg/dL (0-10) 05/04/25 03:43 A&P Assessment and plan 1. Atrial flutter with rapid ventricular response: Patient is on the metoprolol. This may be continued. 2. Methamphetamine use disorder, severe, dependence: Management as per the primary. History of withdrawal symptoms in the past 3. Bipolar 1 disorder, manic, mild: Management as per the primary 4. Alcohol use disorder, severe, dependence: Possible alcohol withdrawal. Management as per the hospitalist service 5. Recurrent major depressive disorder, remission status unspecified: Management as per the primary/behavioral health Plan: Continue on the current management. PDMP PDMP Reviewed: Not Reviewed Attestations Medical Necessity Statement*: Disposition as per the primary Coding Level of Care Code 23894 Diagnoses Atrial flutter with rapid ventricular response I48.92 Methamphetamine use disorder, severe, dependence F15.20 Bipolar 1 disorder, manic, mild F31.11 Alcohol use disorder, severe, dependence F10.20 Recurrent major depressive disorder, remission status unspecified F33.9 Active/Remission status: remission status unspecified Major depression recurrence: recurrent
[2025-05-06 09:54] LABS: Hematocrit 36.4 % (37-53); Hemoglobin 11.80 g/dL (11.27-16.99); Mean Corpuscular HGB Conc 32.4 g/dL (30-55); Mean Corpuscular Hemoglobin 36.2 pg (27-33); Mean Corpuscular Volume 111.7 fl (82-101); Nucleated Red Blood Cells % 0 %; Platelet Count 237 10^3/cmm (157-399); Red Blood Count 3.26 10^6/uL (3.85-5.65); White Blood Count 7.04 10^3/uL (3.29-11.43)
[2025-05-06 10:16] LABS: Alanine Aminotransferase 28 U/L (0-41); Albumin Level 3.4 g/dL (3.5-5.2); Alkaline Phosphatase 87 U/L (40-130); Anion Gap 13.1 (5-19); Aspartate Amino Transferase 20 U/L (0-40); Blood Urea Nitrogen 10 mg/dL (6-20); Calcium 8.2 mg/dL (8.5-10.5); Carbon Dioxide 24 mmol/L (22-29); Chloride 107 mmol/L (98-107); Globulin 2.8 g/dL (1.3-4.6); Glucose 115 mg/dL (65-115); Osmolality Calculated 290 mOsm/kg (285-295); Potassium 4.1 mmol/L (3.5-5.1); Sodium 140 mmol/L (136-145); Total Protein 6.2 g/dL (6.6-8.7)
[2025-05-06 14:10] LABS: Troponin T (5th) Once 14 ng/L (0-15)
--- NOTE | 2025-05-06 14:12 | ECG_ITS ---
[facility]25[facility]06 Pat Name: Ludin Gordon Department: Room: [facility] Gender: Male [employer]er: : 1975 Requested By: Romulo Weaver Order Number: [id number] Yeni MD: Jesus Tellez M.D. Measurements Intervals [place] Rate: 91 P: 46 CT: 153 QRS: 57 QRSD: 96 T: 57 QT: 350 QTc: 432 Interpretive Statements SINUS RHYTHM INTERPRETATION BASED ON A DEFAULT AGE OF 40 YEARS Compared to ECG 05/04/2025 18:16:43 Atrial flutter no longer present T-wave abnormality no longer present Possible ischemia no longer present Electronically Signed On 05-07-2025 18:47:50 [employer] by Jesus Tellez M.D. [id number]
[2025-05-06] MEDS: oxyCODONE-APAP 5-325 mg Tablet 1 TAB PO (15:19)
[2025-05-06] MEDS: diphenhydrAMINE 50 mg/mL SDV 1mL 25 MG IVP (15:37)
[2025-05-07] VITALS (68 sets, daily range): BP systolic 108–157; BP diastolic 65–111; PULSE 89–116; RESP 8–35; O2SAT 88–98
[2025-05-07] MEDS: diphenhydrAMINE 50 mg/mL SDV 1mL 25 MG IVP (00:41)
[2025-05-07] MEDS: LORazepam 2 mg/mL INJ 1 mL 1 MG IVP (03:08)
--- NOTE | 2025-05-07 03:31 | PC.NURSE ---
Breathing Treatment Patient complaining that when he takes a deep breath, he experiences pain in the left side of his ribcage and is requesting his inhaler. Patient also anxious, stating that he is seeing and hearing things, complaining of headache as well as nausea. Ativan and hydroxyzine administered per JOE. Dr. Haq at bedside; order placed by physician for breathing treatment.
--- NOTE | 2025-05-07 13:52 | PM.PN ---
Subjective Subjective: Patient continues to remain in sinus rhythm or telemetry. No other arrhythmias noted. Medications: Medication Review Details: Current Medications Acetaminophen (Acetaminophen 325 Mg Tablet) 650 mg PO Q6H PRN PRN Reason: MILD PAIN Last Admin: 05/06/25 13:53 Dose: 650 mg Chlordiazepoxide (Chlordiazepoxide 25 Mg Capsule) 25 mg PO Q6H PRN PRN Reason: WITHDRAWAL Enoxaparin Sodium (Enoxaparin 40 Mg/0.4 Ml Syringe) 40 mg SUBCUT Q24H ALEC Last Admin: 05/07/25 10:19 Dose: 40 mg Epinephrine HCl (Epinephrine 1 Mg/Ml Inj) 0.3 mg IM ONCE PRN PRN Reason: ANAPHYLAXIS Last Admin: 05/05/25 20:27 Dose: 0.3 mg Famotidine (Famotidine 20 Mg/2 Ml Inj) 20 mg IVP Q12H ALEC Last Admin: 05/07/25 05:51 Dose: 20 mg Hydroxyzine Pamoate (Hydroxyzine 25 Mg Capsule) 50 mg PO Q6H PRN PRN Reason: ANXIETY Last Admin: 05/07/25 10:19 Dose: 50 mg Sodium Chloride (Sodium Chloride 0.9%) 1,000 mls @ 150 mls/hr IV .Q6H40M ALEC Last Admin: 05/07/25 10:59 Dose: 150 mls/hr Esmolol HCl (Brevibloc Drip) 2,500 mg in 250 mls @ 0 mls/hr IV .Q0M ALEC; Protocol Last Titration: 05/05/25 11:17 Dose: 0 mcg/kg/min, 0 mls/hr Lorazepam (Lorazepam 2 Mg Tablet) 2 mg PO Q4H PRN; Protocol PRN Reason: WITHDRAWAL Lorazepam (Lorazepam 2 Mg/Ml Inj 1 Ml) 2 mg IM Q4H PRN; Protocol PRN Reason: ALCOHOL WITHDRAWAL Lorazepam (Lorazepam 2 Mg/Ml Inj 1 Ml) 1 mg IVP PRN PRN; Protocol PRN Reason: WITHDRAWAL Last Admin: 05/07/25 03:08 Dose: 1 mg Lurasidone HCl (Lurasidone 20 Mg Tablet) 40 mg PO QPM ALEC Last Admin: 05/06/25 17:18 Dose: 40 mg Metoprolol Tartrate (Metoprolol Tartrate 1 Mg/1 Ml Sdv 5 Ml) 5 mg IVP Q6H PRN PRN Reason: HEART RATE-HIGH Last Admin: 05/04/25 10:21 Dose: 5 mg Metoprolol Tartrate (Metoprolol Tartrate 25 Mg Tablet) 25 mg PO BID@0900,2100 [facility] Last Admin: 05/07/25 10:19 Dose: 25 mg Nicotine (Nicotine 21 Mg Patch) 1 patch TRANSDERMA DAILY [facility] Last Admin: 05/07/25 05:52 Dose: 1 patch Olanzapine (Olanzapine 5 Mg Odt) 5 mg PO DAILY PRN PRN Reason: Agitation/Psychosis Oxycodone/Acetaminophen (Oxycodone-Apap 5-325 Mg Tablet) 1 tab PO Q6H PRN PRN Reason: MODERATE PAIN Last Admin: 05/06/25 15:19 Dose: 1 tab Pantoprazole Sodium (Pantoprazole Dr 40 Mg Tablet) 40 mg PO BEDTIME [facility] Last Admin: 05/06/25 21:20 Dose: 40 mg Quetiapine Fumarate (Quetiapine 300 Mg Tablet) 300 mg PO BEDTIME [facility] Last Admin: 05/06/25 21:20 Dose: 300 mg Tamsulosin HCl (Tamsulosin 0.4 Mg Capsule) 0.4 mg PO DAILY [facility] Last Admin: 05/07/25 05:52 Dose: 0.4 mg Vitals/I&O/Wt Last Vital Signs Temp 98.3 F 05/06/25 20:46 Pulse 111 H 05/07/25 10:19 Resp 32 H 05/07/25 09:15 BP 122/91 05/07/25 09:15 Pulse Ox 93 05/07/25 10:19 O2 Del Method Room Air 05/07/25 10:19 O2 Flow Rate 2 05/06/25 04:15 05/06/25 05/07/25 05/07/25 22:59 06:59 14:59 Intake Total 1000 / 3720 745 / 4465 1240 / 1240 Output Total 375 / 1150 1460 / 2610 Balance 625 / 2570 -715 / 1855 1240 / 1240 Weight last 48 hrs Weight 160 lb 14.999 oz Weight 158 lb 11.725 oz Weight 158 lb 11.725 oz Weight 158 lb 11.725 oz Physical Exam Narrative: GENERAL: The patient is alert and oriented times three. Not in any acute distress. HEENT: No significant pallor, icterus or lymphadenopathy.Oral cavity: There are no mucous membrane lesions. NECK: Trachea appears to be central. No masses noted. No JVD or thyromegaly appreciated. RESPIRATORY: Chest is symmetrical. No intercostals muscle retraction or any accessory muscle activation. There is no chest wall tenderness. Breath sounds are heard bilaterally. No rales or rhonchi heard. No evidence of any consolidation. BREASTS: Deferred. HEART: The heart sounds are normal. No S3 or S4. No significant murmurs. No pericardial rub ABDOMEN: No vessel pulsations or distention. No tenderness. No organomegaly appreciated. Bowel sounds are normally heard. : Deferred. RECTAL: Deferred. LYMPHATIC: No lymphadenopathy noted in the neck. EXTREMITIES: No edema or cyanosis. No clubbing. MUSCULOSKELETAL: No acute joint deformities or swelling SKIN: There are no significant rashes or ecchymosis NEUROPSYCHIATRIC: The patient is alert and oriented x3. Not in acute distress. Answering questions appropriately Data 05/06/25 09:35 05/06/25 09:35 Other Labs: Laboratory Last Values WBC 7.04 10^3/uL (3.29-11.43) 05/06/25 09:35 RBC 3.26 10^6/uL (3.85-5.65) L 05/06/25 09:35 Hgb 11.80 g/dL (11.27-16.99) 05/06/25 09:35 Hct 36.4 % (37-53) L 05/06/25 09:35 MCV 111.7 fl (82-101) H 05/06/25 09:35 MCH 36.2 pg (27-33) H 05/06/25 09:35 MCHC 32.4 g/dL (30-55) 05/06/25 09:35 RDW 14.1 % (12.1-15.1) 05/06/25 09:35 Plt Count 237 10^3/cmm (157-399) 05/06/25 09:35 MPV 9.2 fL (7.4-10.4) 05/06/25 09:35 Neut % (Auto) 68.6 % 05/06/25 09:35 Lymph % (Auto) 15.9 % 05/06/25 09:35 [place] % (Auto) 14.8 % 05/06/25 09:35 Eos % (Auto) 0.0 % 05/06/25 09:35 Baso % (Auto) 0.1 % 05/06/25 09:35 Neut # (Auto) 4.83 10^3/uL (1.8-7.7) 05/06/25 09:35 Lymph # (Auto) 1.1 10^3/uL (0.8-4.8) 05/06/25 09:35 [place] # (Auto) 1.0 10^3/uL (0.2-0.9) H 05/06/25 09:35 Eos # (Auto) 0.0 10^3/uL (0.0-0.8) 05/06/25 09:35 Baso # (Auto) 0.0 10^3/uL (0.0-0.1) 05/06/25 09:35 Nucleated RBC % (auto) 0 % 05/06/25 09:35 Nucleated RBCs # 0.0 /100WBC 05/06/25 09:35 Sodium 140 mmol/L (136-145) 05/06/25 09:35 Potassium 4.1 mmol/L (3.5-5.1) 05/06/25 09:35 Chloride 107 mmol/L (98-107) 05/06/25 09:35 Carbon Dioxide 24 mmol/L (22-29) 05/06/25 09:35 Anion Gap 13.1 (5-19) 05/06/25 09:35 BUN 10 mg/dL (6-20) 05/06/25 09:35 Creatinine 0.6 mg/dL (0.7-1.2) L 05/06/25 09:35 GFR Calculation 143.8 mL/min (90-130) H 05/06/25 09:35 Glucose 115 mg/dL (65-115) 05/06/25 09:35 POC Glucose 90 mg/dL (70-110) 05/04/25 09:02 Calculated Osmolality 290 mOsm/kg (285-295) 05/06/25 09:35 Calcium 8.2 mg/dL (8.5-10.5) L 05/06/25 09:35 Total Bilirubin 0.3 mg/dL (0.15-1.2) 05/06/25 09:35 AST 20 U/L (0-40) 05/06/25 09:35 ALT 28 U/L (0-41) 05/06/25 09:35 Alkaline Phosphatase 87 U/L (40-130) 05/06/25 09:35 Troponin T 5th Gen ng/L 14 ng/L (0-15) 05/06/25 13:40 Troponin T Baseline 16 ng/L (0-15) H 05/04/25 03:43 Troponin T 120 Minute 15.71 ng/L (0-15) H 05/04/25 06:15 Delta Troponin T -0.29 ABS# (0-10) L 05/04/25 06:15 Total Protein 6.2 g/dL (6.6-8.7) L 05/06/25 09:35 Albumin 3.4 g/dL (3.5-5.2) L 05/06/25 09:35 Globulin 2.8 g/dL (1.3-4.6) 05/06/25 09:35 Urine Color Yellow (Yellow) 05/04/25 10:50 Urine Appearance Clear (CLEAR) 05/04/25 10:50 Urine pH 5.5 (5-7) 05/04/25 10:50 Ur Specific [place] 1.022 (1.005-1.030) 05/04/25 10:50 Urine Protein Trace (Negative) A 05/04/25 10:50 Urine Glucose (UA) Negative (Normal) 05/04/25 10:50 Urine Ketones Trace (Negative) 05/04/25 10:50 Urine Blood Negative (Negative) 05/04/25 10:50 Urine Nitrate Negative (Negative) 05/04/25 10:50 Urine Bilirubin Negative (Negative) 05/04/25 10:50 Urine Urobilinogen 1.0 mg/dL (Negative) 05/04/25 10:50 Ur Leukocyte Esterase Negative (Negative) 05/04/25 10:50 Urine RBC 0-2 /hpf (0-2) 05/04/25 10:50 Urine WBC 0-5 /hpf (0-5) 05/04/25 10:50 Ur Squamous Epith Cells 0-5 /hpf (0-5) 05/04/25 10:50 Amorphous Sediment Not Reportable 05/04/25 10:50 Urine Bacteria None seen /hpf (NONE) 05/04/25 10:50 Hyaline Casts 2.05 /lpf 05/04/25 10:50 Salicylates < 0.3 mg/dL (3-10) L 05/04/25 03:43 Urine Opiates Screen Positive ng/mL (Negative) H 05/04/25 10:50 Acetaminophen < 5.0 ug/mL (10-30) L 05/04/25 03:43 Ur Barbiturates Screen Positive ng/mL (Negative) H 05/04/25 10:50 Ur Phencyclidine Scrn Negative ng/mL (Negative) 05/04/25 10:50 Ur Amphetamines Screen Positive ng/mL (Negative) H 05/04/25 10:50 U Benzodiazepines Scrn Positive ng/mL (Negative) H 05/04/25 10:50 Urine Cocaine Screen Negative ng/mL (Negative) 05/04/25 10:50 U Marijuana (THC) Screen Negative ng/mL (Negative) 05/04/25 10:50 Ethyl Alcohol < 10 mg/dL (0-10) 05/04/25 03:43 A&P Assessment and plan 1. Atrial flutter with rapid ventricular response: Patient has been staying in the sinus rhythm for the last 48 hours. Seems to be tolerating the metoprolol so far well. May continue on the current dose. 2. Methamphetamine use disorder, severe, dependence: Management as per the primary. History of withdrawal symptoms in the past 3. Bipolar 1 disorder, manic, mild: Management as per the primary 4. Alcohol use disorder, severe, dependence: Possible alcohol withdrawal. Management as per the hospitalist service 5. Recurrent major depressive disorder, remission status unspecified: Management as per the primary/behavioral health Plan: Since the patient's overall cardiovascular status seems to be stable, he may not require any active cardiac follow-up at this point. I may sign off at this time Feel free to contact us, if there are any further questions. Appointment at the [facility] in 2 weeks to be seen by the nurse practitioner PDMP PDMP Reviewed: Not Reviewed Attestations Medical Necessity Statement*: Deferred to the primary Coding Level of Care Code 83944 Diagnoses Atrial flutter with rapid ventricular response I48.92 Methamphetamine use disorder, severe, dependence F15.20 Bipolar 1 disorder, manic, mild F31.11 Alcohol use disorder, severe, dependence F10.20 Recurrent major depressive disorder, remission status unspecified F33.9 Active/Remission status: remission status unspecified Major depression recurrence: recurrent
[2025-05-07] MEDS: oxyCODONE-APAP 5-325 mg Tablet 1 TAB PO (16:26)
--- NOTE | 2025-05-07 19:13 | P.PN_ITS ---
Subjective 2 Subjective: reports some anxiety had some facial swelling and redness Vitals/I&O/Wt Last Vital Signs Temp 98.3 F 05/06/25 20:46 Pulse 94 05/07/25 18:45 Resp 22 H 05/07/25 18:45 BP 157/103 05/07/25 18:45 Pulse Ox 98 05/07/25 18:45 O2 Del Method Room Air 05/07/25 18:45 O2 Flow Rate 2 05/06/25 04:15 05/07/25 05/07/25 05/07/25 06:59 14:59 22:59 Intake Total 745 / 4465 1240 / 1240 1000 / 2240 Output Total 1460 / 2610 425 / 425 Balance -715 / 1855 1240 / 1240 575 / 1815 Weight last 48 hrs Weight 73 kg Weight 72 kg Weight 72 kg Weight 72 kg Physical Exam 2 Narrative: General: NAD, AAO x 3 HEENT: EOMI, CVS:RRR Resp:CTA Abdomen:soft, NT MSK:no swelling Data 05/06/25 09:35 05/06/25 09:35 A&P Assessment and plan 1. Anxiety disorder, unspecified type: 2. Alcohol abuse: 3. Atrial flutter with rapid ventricular response: Plan: #atrial flutter with rvr --appreciate cardiology recs --wean emolol drip --metoprolol 25mg po bid #poysubstance use --counseled #etoh use --on ciwa protocol #anxiety --on ciwa protocol, added librium #allergies/anaphylaxis --given epi, steroids, benadryl keep in ICU for now PDMP PDMP Reviewed: Not Reviewed Attestations 2 Medical Necessity Statement*: ciwa, heart rate control Coding Level of Care Code 01659 Diagnoses Anxiety disorder, unspecified type F41.9 Anxiety disorder type: unspecified anxiety disorder Alcohol abuse F10.10 Atrial flutter with rapid ventricular response I48.92
--- NOTE | 2025-05-07 21:48 | PC.NURSE ---
D/c fluids: Dr. Haq gave telephone orders to d/c fluids as patient is eating and drinking normally.
[2025-05-08] VITALS (27 sets, daily range): BP systolic 105–122; BP diastolic 63–88; PULSE 87–104; RESP 7–41; TEMP 36.8–36.9; O2SAT 86–100
[2025-05-08] MEDS: oxyCODONE-APAP 5-325 mg Tablet 1 TAB PO ×2 (00:03→08:43)
--- NOTE | 2025-05-08 14:21 | PM.DCS ---
Discharge Providers Date of Admission: 05/04/25 07:16 Date of Discharge: May 08, 2025 Attending Provider at Admission: Roque Haq MD Attending Provider at Discharge: Romulo Weaver MD Primary Care Provider: Chayito Cali MD Diagnoses at Discharge Discharge Diagnosis 1. Anxiety disorder, unspecified type: 2. Alcohol abuse: 3. Atrial flutter with rapid ventricular response: Reason for Visit Reason for Visit: Hands tingeling and burning, Face on rt side Hospital Course Hospital Course Ludin Gordon is a 49 year old male with a history of atrial fibrillation/flutter, etoh abuse, illicit drug use, and bipolar I, who presented to the ED with complaints of diffuse weakness and shaking that, per ED physician documentation, the patient attributes to alcohol and methamphetamine use. Unfortunately, I am unable to obtain history from the patient at this time. He was provided with 2mg IV lorazepam and since administration, has been too difficult to arouse for history gathering. Bedside RN tells me the patient was alert and oriented x4 prior to administration and patient reported not sleeping for 3 days due to methamphetamine use. ED physician sign out to me included atrial flutter and a possible component of anxiety contributing hence the benzodiazepine administration. However, chart review suggest a longstanding history of substance and alcohol abuse with associated psychiatric care. Hospital course: The patient reported some hand tingling. Also facial numbness that resolved. He was given some steroids as well as epinephrine during hospitalization. Unclear why he had the swelling. The patient was placed on CIWA protocol. Cardiology was consulted for his A-flutter. He responded esmolol drip. Transition to oral medications. At time of discharge she was stable. Discharged in stable condition. Recommended outpatient follow-up. Discontinue alcohol use. And follow-up with PCP as well as psychiatric care. Physical Exam Narrative: General: NAD, AAO x 3 HEENT: EOMI, CVS:RRR Resp:CTA Abdomen:soft, NT MSK:no swelling Discharge Data Studies Completed and Pending Completed Studies During Hospitalization Category Date Time Status CT head wo con* [id number] Routine Cat Scan 05/04/25 11:41 Completed XR chest 1V portable [id number] Stat Exams 05/04/25 05:10 Completed US echo complete [CV. echo complete* [id number]] Routine Ultrasound 05/05/25 09:59 Completed Radiology Impressions Chest X-Ray 05/04/25 05:10 IMPRESSION: No acute cardiopulmonary process. Head CT 05/04/25 11:41 IMPRESSION: 1. No evidence of intracranial hemorrhage or mass effect. 2. Mild ethmoid sinusitis 3. No acute intracranial findings. Laboratory Results WBC 7.04 10^3/uL (3.29-11.43) 05/06/25 09:35 RBC 3.26 10^6/uL (3.85-5.65) L 05/06/25 09:35 Hgb 11.80 g/dL (11.27-16.99) 05/06/25 09:35 Hct 36.4 % (37-53) L 05/06/25 09:35 MCV 111.7 fl (82-101) H 05/06/25 09:35 MCH 36.2 pg (27-33) H 05/06/25 09:35 MCHC 32.4 g/dL (30-55) 05/06/25 09:35 RDW 14.1 % (12.1-15.1) 05/06/25 09:35 Plt Count 237 10^3/cmm (157-399) 05/06/25 09:35 MPV 9.2 fL (7.4-10.4) 05/06/25 09:35 Neut % (Auto) 68.6 % 05/06/25 09:35 Lymph % (Auto) 15.9 % 05/06/25 09:35 [place] % (Auto) 14.8 % 05/06/25 09:35 Eos % (Auto) 0.0 % 05/06/25 09:35 Baso % (Auto) 0.1 % 05/06/25 09:35 Neut # (Auto) 4.83 10^3/uL (1.8-7.7) 05/06/25 09:35 Lymph # (Auto) 1.1 10^3/uL (0.8-4.8) 05/06/25 09:35 [place] # (Auto) 1.0 10^3/uL (0.2-0.9) H 05/06/25 09:35 Eos # (Auto) 0.0 10^3/uL (0.0-0.8) 05/06/25 09:35 Baso # (Auto) 0.0 10^3/uL (0.0-0.1) 05/06/25 09:35 Nucleated RBC % (auto) 0 % 05/06/25 09:35 Nucleated RBCs # 0.0 /100WBC 05/06/25 09:35 Sodium 140 mmol/L (136-145) 05/06/25 09:35 Potassium 4.1 mmol/L (3.5-5.1) 05/06/25 09:35 Chloride 107 mmol/L (98-107) 05/06/25 09:35 Carbon Dioxide 24 mmol/L (22-29) 05/06/25 09:35 Anion Gap 13.1 (5-19) 05/06/25 09:35 BUN 10 mg/dL (6-20) 05/06/25 09:35 Creatinine 0.6 mg/dL (0.7-1.2) L 05/06/25 09:35 GFR Calculation 143.8 mL/min (90-130) H 05/06/25 09:35 Glucose 115 mg/dL (65-115) 05/06/25 09:35 POC Glucose 119 mg/dL (70-110) H 05/08/25 07:21 Calculated Osmolality 290 mOsm/kg (285-295) 05/06/25 09:35 Calcium 8.2 mg/dL (8.5-10.5) L 05/06/25 09:35 Total Bilirubin 0.3 mg/dL (0.15-1.2) 05/06/25 09:35 AST 20 U/L (0-40) 05/06/25 09:35 ALT 28 U/L (0-41) 05/06/25 09:35 Alkaline Phosphatase 87 U/L (40-130) 05/06/25 09:35 Troponin T 5th Gen ng/L 14 ng/L (0-15) 05/06/25 13:40 Troponin T Baseline 16 ng/L (0-15) H 05/04/25 03:43 Troponin T 120 Minute 15.71 ng/L (0-15) H 05/04/25 06:15 Delta Troponin T -0.29 ABS# (0-10) L 05/04/25 06:15 Total Protein 6.2 g/dL (6.6-8.7) L 05/06/25 09:35 Albumin 3.4 g/dL (3.5-5.2) L 05/06/25 09:35 Globulin 2.8 g/dL (1.3-4.6) 05/06/25 09:35 Urine Color Yellow (Yellow) 05/04/25 10:50 Urine Appearance Clear (CLEAR) 05/04/25 10:50 Urine pH 5.5 (5-7) 05/04/25 10:50 Ur Specific [place] 1.022 (1.005-1.030) 05/04/25 10:50 Urine Protein Trace (Negative) A 05/04/25 10:50 Urine Glucose (UA) Negative (Normal) 05/04/25 10:50 Urine Ketones Trace (Negative) 05/04/25 10:50 Urine Blood Negative (Negative) 05/04/25 10:50 Urine Nitrate Negative (Negative) 05/04/25 10:50 Urine Bilirubin Negative (Negative) 05/04/25 10:50 Urine Urobilinogen 1.0 mg/dL (Negative) 05/04/25 10:50 Ur Leukocyte Esterase Negative (Negative) 05/04/25 10:50 Urine RBC 0-2 /hpf (0-2) 05/04/25 10:50 Urine WBC 0-5 /hpf (0-5) 05/04/25 10:50 Ur Squamous Epith Cells 0-5 /hpf (0-5) 05/04/25 10:50 Amorphous Sediment Not Reportable 05/04/25 10:50 Urine Bacteria None seen /hpf (NONE) 05/04/25 10:50 Hyaline Casts 2.05 /lpf 05/04/25 10:50 Salicylates < 0.3 mg/dL (3-10) L 05/04/25 03:43 Urine Opiates Screen Positive ng/mL (Negative) H 05/04/25 10:50 Acetaminophen < 5.0 ug/mL (10-30) L 05/04/25 03:43 Ur Barbiturates Screen Positive ng/mL (Negative) H 05/04/25 10:50 Ur Phencyclidine Scrn Negative ng/mL (Negative) 05/04/25 10:50 Ur Amphetamines Screen Positive ng/mL (Negative) H 05/04/25 10:50 U Benzodiazepines Scrn Positive ng/mL (Negative) H 05/04/25 10:50 Urine Cocaine Screen Negative ng/mL (Negative) 05/04/25 10:50 U Marijuana (THC) Screen Negative ng/mL (Negative) 05/04/25 10:50 Ethyl Alcohol < 10 mg/dL (0-10) 05/04/25 03:43 Vitals Last Vital Signs Temp 98.2 F 05/08/25 12:00 Pulse 97 05/08/25 12:34 Resp 21 H 05/08/25 12:34 BP 105/73 05/08/25 12:00 Pulse Ox 96 05/08/25 12:34 O2 Del Method Room Air 05/08/25 11:00 O2 Flow Rate 2 05/06/25 04:15 Discharge Plan Discharge Patient Disposition: Home Condition: Stable Prescriptions: New chlordiazepoxide HCl 25 mg Capsule 25 mg PO Q6H PRN (Reason: Withdrawal) Qty: 30 0RF nicotine 21 mg/24 hr Patch 24 Hour 1 patch transdermal DAILY Qty: 30 0RF metoprolol tartrate 25 mg Tablet 37.5 mg PO BID@0900,2100 Qty: 60 0RF Continued albuterol sulfate [Ventolin HFA] 90 mcg/actuation HFA aerosol inhaler 2 puff inhalation Q4H PRN (Reason: shortness of breath or wheezing) Qty: 8.5 0RF trazodone 50 mg Tablet 50 mg PO BEDTIME PRN (Reason: Sleep) 30 Days Qty: 30 1RF olanzapine 5 mg Tablet,Disintegrating 5 mg PO DAILY PRN (Reason: Agitation/Psychosis) 30 Days Qty: 30 1RF hydroxyzine pamoate 25 mg Capsule 50 mg PO Q6H PRN (Reason: Anxiety) 30 Days Qty: 120 1RF quetiapine 300 mg tablet 300 mg PO BEDTIME 30 Days Qty: 30 1RF sucralfate 1 gram tablet 1 g PO QID 30 Days Qty: 120 1RF propranolol 10 mg tablet 10 mg PO BID 30 Days Qty: 60 1RF tamsulosin 0.4 mg capsule 0.4 mg PO DAILY 30 Days Qty: 30 1RF pantoprazole 40 mg tablet,delayed release (DR/EC) 40 mg PO BEDTIME 30 Days Qty: 30 1RF lurasidone 40 mg tablet 40 mg PO QPM 30 Days Qty: 30 1RF Discharge Order = DC NOW: Discharge Order (Routine); Ordered 05/08/25 Ordered By: Romulo Weaver Referrals: Chayito Cali MD [Primary Care Provider, [facility]] Discharge Diet: Usual diet Patient Instructions: Opioid Safety, Patient Portal & [place] Instructions Activity Restrictions/Additional Instructions: dont drink etoh, followup with pcp in 1 week Discharge Attestations Time Spent in Discharge Care*: less than 30 min Status at Discharge: Cognitive status at discharge: cognitively intact, Behavioral status at discharge: cooperative, Quality Metrics Clinical Quality Measures [ No reported AMI, CVA or VTE this stay] Coding Level of Care Code Acute Code for Chg Fwd Diagnoses Anxiety disorder, unspecified type F41.9 Anxiety disorder type: unspecified anxiety disorder Alcohol abuse F10.10 Atrial flutter with rapid ventricular response I48.92
== END 2025-05-08 15:07 | disposition home or self-care (01) | DRG 201 ==
LOC: ER 05:29 → ICU 07:16
PROVIDERS: Admitting Provider Family Medicine; Emergency Provider Student in an Organized Health Care Education/Training Program; PCP Family Medicine; Visit Provider Internal Medicine
DX: I48.92 Unspecified atrial flutter (principal); F41.9 Anxiety disorder, unspecified; F10.10 Alcohol abuse, uncomplicated; F31.9 Bipolar disorder, unspecified; F15.20 Other stimulant dependence, uncomplicated; Z59.00 Homelessness unspecified
CPT/HCPCS: 36415; 36416; 70450; 71045; 80048; 80053; 80306; 80307; 81001; 82962; 84484; 85025; 93005; 93306; 94640; 96365; 96366; 96367; 96372; 96375; 99291; A4222; J0169; J0282; J0283; J1160; J1200; J1650; J2060; J2919; J3411; J3490; J7030; J7120; J9999